=== PATIENT | female | born 1975 | race Caucasian/White ===

== ENCOUNTER → 2017-05-17 07:31 | Outpatient (CLI) | payer MEDICAID, SELFPAY ==
--- NOTE | 2017-05-17 07:34 | HPBI_ITS ---
MAMMOGRAPHY - BILATERAL SCREENING REASON FOR EXAM: Female, 42 years old. Routine annual screening examination. PERTINENT HISTORY: Non-contributory. TECHNIQUE: Digital bilateral breast desire (3D mammographic acquisition) in the CC and MLO projections. 2-D mediolateral oblique (MLO) and craniocaudad (CC) views of both breasts were obtained. CAD: Full Field Digital Mammography with Computer Added Detection was performed. COMPARISON: Comparison is made with prior examination dated July 02, 2013. FINDINGS: Breast Composition: There are scattered areas of fibroglandular density. There are no dominant masses or suspicious calcifications. No other significant abnormalities are identified. There has been no significant change since the prior study. HPBI/SCREENING MAMM (CAD), BILAT IMPRESSION: Stable bilateral screening mammogram. Yearly follow-up mammogram recommended. (A) ASSESSMENT CATEGORY: BIRADS Category 1: Negative. A letter regarding these results will be sent to the patient by the facility within 30 days. Approximately 10% of breast cancers are not detected by mammography. A normal mammogram should not delay biopsy of a clinically suspicious abnormality. [id number] Electronically Signed: Mulugeta Waddell MD at 9:53 EST Tel [phone], Service support ,
== END ==
PROVIDERS: Family Provider Family Medicine; PCP Family Medicine; Visit Provider Obstetrics & Gynecology
DX: Z12.31 Encounter for screening mammogram for malignant neoplasm of breast (principal)
CPT/HCPCS: 77063; 77067

== ENCOUNTER 2017-10-30 12:12 | Emergency (ER) | payer MEDICAID, SELFPAY ==
[2017-10-30 12:12] VITALS: BP 118/85; PULSE 79; RESP 16; TEMP 36.8; O2SAT 100; BMI 29.7
--- NOTE | 2017-10-30 12:19 | EKG12_ITS ---
Test Reason : CP Blood Pressure : / mmHG Vent. Rate : 073 BPM Atrial Rate : 073 BPM P-R Int : 156 ms QRS Dur : 092 ms QT Int : 392 ms P-R-T Axes : 084 088 076 degrees QTc Int : 431 ms Normal sinus rhythm Normal ECG Confirmed by CAITY VASQUEZ, PAMELA ([id number]), graphic editor GEORGINA ZAMARRIPA ([id number]) on 11/02/2017 1:25:19 PM Referred By: GWEN Confirmed By:PAMELA CAROLINA MD
--- NOTE | 2017-10-30 12:25 | RAD_ITS ---
STUDY: X-RAY CHEST REASON FOR EXAM: Female, 42 years old. Chest pain. TECHNIQUE: Single AP portable view of the chest. COMPARISON: Comparison is made with prior examination dated September 07, 2016. FINDINGS: The lungs are clear and expanded. There is no demonstrated pleural abnormality. Normal size heart. Normal mediastinum and morgan. Normal visualized pulmonary arteries. Normal visualized aortic arch and descending thoracic aorta. Normal visualized thoracic spine. Normal visualized ribs, clavicles, and shoulders. There is no demonstrated abnormality of the visualized soft tissue structures of the upper abdomen. RAD/Chest 1 View (Portable) IMPRESSION: Normal x-ray examination of the chest. Electronically Signed: Mulugeta Waddell MD at 12:48 EDT Tel [phone], Service support ,
--- NOTE | 2017-10-30 13:00 | ED.DCSUM_ITS ---
- ER Visit Summary Date of Service: 10/30/17 Chief Complaint: Chest pain History of Present Illness: The patient is a 42 F who presents with chest pain that has been constant for the past 3 days. Patient states the pain is over the left upper chest. Patient states her pain is worse when she is walking. Patient denies any nausea or vomiting. Patient admits to some shortness of breath and palpitations with the pain. Patient also states she did have some diaphoresis however she was walking in the hot weather today. Patient does admit to a cough and some lightheadedness. Patient states she took a Xanax tablet thinking that it was anxiety related. Patient states this did not help. Patient is a history of hypertension and is a smoker. Patient denies any PE risk factors. Physical Examination: Vital signs are stable. Patient is afebrile. Patient is in no acute distress. Oral mucosa is pink and moist. Heart was regular rate and rhythm. Lungs are clear and equal bilaterally. There is good respiratory effort noted. Abdomen is soft and nontender. Bowel sounds are normal. There is no rebound or guarding noted. Cranial nerves II through XII are intact. There are no focal motor or sensory deficits noted. The remaining physical exam is within normal limits. Test Results: EKG showed normal sinus rhythm with a rate of 73. There are no acute ST or T-wave changes noted. Single AP view of the chest was obtained. There is no acute cardiopulmonary process. This was interpreted by myself. CBC , basic metabolic profile, troponin were obtained. There is a slight leukocytosis of 11.6. The remaining labs are within normal limits. Emergency Department Course and Treatment: Patient was given aspirin here. Patient felt better on reevaluation. Patient has a RADHA score of 0. Patient has a HEART score of 1. Patient was advised that this is low risk for acute cardiac event. Patient was instructed to follow-up with her primary care physician in 5-7 days. Patient was instructed to continue her medications as previously prescribed. Patient understood and was agreeable with the plan. All questions were answered. Disposition: Discharge home Impression: Chest pain This note was generated with [employer] dictation software. It may contain incorrect words, spelling, and punctuation that were not noted in review of the chart prior to signing ED Disposition - Plan for ED Patient: Disposition: Home or Assisted Living Chief Complaint: Chest Pain Diagnosis: Chest pain Instructions: ED Chest Pain Atypical Unkn Cause Referrals: Carolina Kemp MD [Primary Care Provider] -
[2017-10-30 13:08] VITALS: O2SAT 98
[2017-10-30 13:13] LABS: Absolute Lymphocyte Count 2.87 X10^3/ul (0.83-4.51); Basophil# 0.03 X10^3/uL; Basophil% 0.3 % (0-1); Eosinophil# 0.16 X10^3/uL; Eosinophils% 1.4 % (0-5); Hematocrit 44.7 % (37-47); Hemoglobin 15.1 g/dl (12.0-15.0); Lymphocyte # 2.87 X10^3/ul (4.0); Lymphocyte % 24.8 % (19-41); Mean Corp Hgb Conc 33.8 g/gl (32-36); Mean Corpuscular Hgb 30.8 pg (27.0-32.0); Mean Corpuscular Volume 91.2 fL (81-99); Mean Platelet Vol. 10.7 fl (6.2-12.0); Monocyte# 0.48 X10^3/uL; Monocyte% 4.2 % (0-10); Neutrophil # 7.98 X10^3/uL (2.7-7.7); POSITIVE COUNT NO; POSITIVE DIFFERENTIAL NO; POSITIVE MORPHOLOGY NO; Platelet Count 271 K/mm3 (150-450); RBC Distribution Width CV 13.6 % (11.6-14.6); RBC Distribution Width SD 44.6 fl (35.1-43.9); White Blood Count 11.6 K/mm3 (4.4-11.0)
[2017-10-30] MEDS: Aspirin 81 MG TAB.CHEW 324 MG PO (13:18)
[2017-10-30 13:30] LABS: Anion Gap 6 (5-15); BUN 16 mg/dL (7-18); BUN/Creat Ratio 17.2 RATIO (10-20); Calcium,Total 9.3 mg/dL (8.5-10.1); Chloride 106 mmol/L (98-107); Creatinine, Serum 0.93 mg/dL (0.55-1.02); EST Glomerular Filtration Rate 70 mL/min (>60); Est Glom Filt Rate - Afr Amer 84 mL/min (>60); Estimated Creatinine Clearance 72.27 ml/min; Glucose 89 mg/dL (74-106); Potassium 3.7 mmol/L (3.5-5.1); Sodium Level 141 mmol/L (136-145)
[2017-10-30 15:24] VITALS: BP 138/76; PULSE 66; RESP 18; O2SAT 98
== END 2017-10-30 15:26 | disposition home or self-care (01) ==
PROVIDERS: Emergency Provider Emergency Medicine; Family Provider Internal Medicine; PCP Internal Medicine
DX: R07.9 Chest pain, unspecified (principal); I10 Essential (primary) hypertension; E03.9 Hypothyroidism, unspecified; F17.200 Nicotine dependence, unspecified, uncomplicated; Z79.899 Other long term (current) drug therapy
CPT/HCPCS: 71045; 80048; 84484; 85025; 93005; 99284; A4216

== ENCOUNTER → 2018-03-26 16:00 | Outpatient (CLI) | payer MEDICAID, SELFPAY ==
[2018-03-26 15:20] VITALS: BMI 29.1
[2018-03-26 19:04] LABS: T4 Free Direct 1.22 ng/dL (0.76-1.46); Thyroid Stim Hormone (TSH) 1.57 uIU/mL (0.358-3.74); Vitamin D,25 Hydroxy 26.6 ng/mL (29.95-100.01)
--- OUTSIDE RECORDS SUMMARY | 2018-05-12 23:20 | XMS RPT_ITS ---
:1975 Author Organization [place] Care Team Providers Name Role Phone ALL MATIAS Attending Unavailable ALL MATIAS Referring Unavailable ALL MTAIAS Referring Unavailable ALL MATIAS Attending Unavailable BARI DE LA GARZA Referring Unavailable Bari Westfall FIRE PREVENTION FORESTER-C Attending Unavailable Oleghe, Efewongbe Referring Unavailable WestfallBari rivas FIRE PREVENTION FORESTER-C Attending Unavailable WestfallBari FIRE PREVENTION FORESTER-C Referring Unavailable Oleghe, Efewong[place] Primary Care Unavailable Marino Cox Attending Unavailable Marino Cox Referring Unavailable Holli, Bari Primary Care Unavailable Bari De La Garza Attending Unavailable Bari De La Garza Primary Care Unavailable Schwnela Lawson Attending Unavailable Oleghe, Efewongbe Primary Care Unavailable Marino Cox Attending Unavailable Marino Cox Referring Unavailable Oleghe, Efewong[place] Primary Care Unavailable Oleghe, E[place] Attending Unavailable Holli, Bari Referring Unavailable Oleghe, Efewong[place] Primary Care Unavailable CiaraGeo rossril Attending Unavailable Oleghe, Efewongbe Referring Unavailable PROBLEMS PROBLEMS DATE TYPE CONDITION / CODE ATTENDING STATUS SOURCE 04/11/2018 Unknown Z12.4 - Encounter Ericmadisyn Marino Active [place] for screening for Community malignant neoplasm [facility] / Repository Z12.4(ICD-10) 05/25/2017 Unknown E11.9 - Type 2 Bari De La Garza Active [place] diabetes mellitus Community without Hospital complications / Repository E11.9(ICD-10) 05/25/2017 Unknown E03.9 - Bari De La Garza Active [place] Hypothyroidism, Community unspecified / Hospital E03.9(ICD-10) Repository 10/31/2017 Unknown I49.9 - Cardiac Oleghe, Active [place] arrhythmia, [place] Community unspecified / Hospital I49.9(ICD-10) Repository 01/16/2018 Unknown R07.9 - Chest pain, Schwiger, Lawson Active [place] unspecified / Community R07.9(ICD-10) Hospital Repository 10/19/2017 Active Generalized NA Active [facility] abdominal pain / [facility] [place] R10.84(ICD-10) Repository 10/19/2017 Active Incisional hernia NA Active [facility] without obstruction [facility] [place] or gangrene / Repository K43.2(ICD-10) 10/19/2017 Active Unknown / NA Active [facility] UNK(Unknown) [facility] [place] Repository 05/17/2017 Unknown Z12.31 - Encounter Kenny Marino [place] for screening Community mammogram for Hospital malignant neoplasm Repository of breast / Z12.31(ICD-10) PROCEDURES PROCEDURES No Procedure Records FoundRESULTS RESULTS PAP IG HPV HR Collected: 04/11/2018 Status: F Source: [place] 4:00 PM [facility] REPOSITORY Order Comment: CYTOLOGY INFORMATION: - CLINICAL INFORMATION: - DATE LMP/MENOPAUSE: 03/18/18 LMP - COLLECTION VIAL: Thin Prep Vial - TRAY LINE SUPERVISOR SOURCE: CERVICAL/ENDOCERVICAL - COLLECTION TECHNIQUE: BRUSH/SPATULA Specimen Comment: [id number] Specimen Comment: Source.............Cervix;Endocervix Specimen Comment: LMP / Prev Treat...[id number]=[id number] Specimen Comment: No. of containers..01 ThinPrep Vial TYPE CODE TESTS RESULT OUT OF RANGE REFERENCE UNITS LAB L7400.0800 . Normal DIAGN Comment Result Comment: NEGATIVE FOR INTRAEPITHELIAL LESION AND MALIGNANCY. LAB L7400.0900 . Normal ADEQ Comment Result Comment: Satisfactory for evaluation. Endocervical and/or squamous metaplastic cells (endocervical component) are present. LAB L7400.1400 . Normal PERFORM Comment Result Comment: Eleanor Casper, Skein Yarn Drier (ASCP) LAB L7400.2575 . Normal TEST METHOD Comment Result Comment: This liquid based ThinPrep(R) pap test was screened with the use of an image guided system. LAB L7400.2600 . Normal . COMM LAB L7400.2700 . Normal PAPSMR Comment Result Comment: The Pap smear is a screening test designed to aid in the detection of premalignant and malignant conditions of the uterine cervix. It is not a diagnostic procedure and should not be used as the sole means of detecting cervical cancer. Both false-positive and false-negative reports do occur. LAB L7400.2760 Negative Normal HPV APTIMA, Negative HR Result Comment: This test detects fourteen high-risk HPV types (16/18/31/33/35/39/45/ 51/52/56/58/59/66/68) without differentiation. Performed at: [address] [id number] Astronautical Engineer: Justine Camilo MD, Phone: [phone] Performed at: =[address] [id number] Astronautical Engineer: Justine Camilo MD, Phone: [phone] Performed By: #### L7400.0377 #### [facility] (refer to report for specific site) refer to report for address and phone number THYROID STIM HORMONE Collected: 03/26/2018 Status: F Source: [place] (TSH) 4:04 PM [facility] REPOSITORY TYPE CODE TESTS RESULT OUT OF RANGE REFERENCE UNITS LAB L501.9520 0.358-3.74 uIU/mL Normal TSH 1.57 Performed By: #### L501.9520, L506.0400 #### [facility] [address] [place], [address] T4 FREE DIRECT Collected: 03/26/2018 Status: F Source: [place] 4:04 PM [facility] REPOSITORY TYPE CODE TESTS RESULT OUT OF RANGE REFERENCE UNITS LAB L506.0400 0.76-1.46 ng/dL Normal T4 FREE 1.22 DIRECT Performed By: #### L501.9520, L506.0400 #### [facility] [address] [place], [address] VITAMIN D,25 HYDROXY Collected: 03/26/2018 Status: F Source: [place] 4:04 PM [facility] REPOSITORY TYPE CODE TESTS RESULT OUT OF REFERENCE UNITS RANGE LAB L506.1000 29.95-100.01 ng/mL Low Vitamin D 26.6 25-OH Result Comment: Vitamin D 25(OH) Status Range Deficiency <20 ng/mL (50nmol/L) Insuffciency 20 - 30 ng/mL (50 - 75 nmol/L) Sufficiency 30 - 100 ng/mL (75 - 250 nmol/L) Toxicity >100 ng/mL (>250 nmol/L) Performed By: #### L506.1000 #### [facility] [address] [place], [address] INTERNAL MEDICINE Observed: 03/26/2018 Status: F Source: [place] OFFICE VISIT 4:01 PM [facility] REPOSITORY [facility] [address] [place] [address] [place] [address] OFFICE VISIT Date of Service: 03/26/18 MR#: [id number] Acct: [id number] Name: AMA ROBERTS Rep #: [id number] : 1975 Provider: Bari Westfall NP Age/Sex: 42/F Location[place] [facility] Status: Signed Intake Vital Signs03/26/18 Body Mass Index (BMI) 29.1 03/26/18 Height 5 ft 7 in 03/26/18 Weight: 191 lb 03/26/18 Body Mass Index (BMI) 29.9 03/26/18 Blood Pressure 124/80 H Intake Visit Reasons: WANTS AN ORDER FOR BW TO CHECK THYROID Chief Complaint: Wants an order for BW Is patient in pain?: No Allergies ondansetron [From Zofran (as hydrochloride)] Allergy (Verified 03/26/18 15:19) Nausea Medications ALPRAZolam [Xanax] 1 mg PO BID PRN 12/21/13 [History Confirmed 03/26/18] diphenhydramine 25 mg capsule 25 mg PO QHS PRN 10/31/17 [History Confirmed 03/26/18] ibuprofen 200 mg tablet 200 mg PO TID-QID PRN 10/31/17 [History Confirmed 03/26/18] multivitamin capsule 1 cap PO QAM 10/31/17 [History Confirmed 03/26/18] levothyroxine 88 mcg tablet 88 mcg PO DAILY #90 tab 03/20/18 [Rx Confirmed 03/26/18] atenolol 25 mg tablet 25 mg PO QDAY #90 tab 03/26/18 [Rx Confirmed 03/26/18] dextromethorphan-guaifenesin ER 60 mg-1,200 mg tab,extend release,12hr 1 tab PO Q12H PRN #14 tab 03/26/18 [Rx Confirmed 03/26/18] PFSH Medical History Cardiac arrhythmia, unspecified (Acute) Polycystic ovarian disease (Acute) Anxiety (Chronic) Hypothyroidism (Acute) Vitamin deficiency (Acute) History of migraine (Acute) Arthritis (Chronic) Seasonal allergies (Chronic) Hyperlipemia (Acute) 2 vaginal deliveries (Acute) GERD (gastroesophageal reflux disease) (Acute) Surgical History History of 2 sections (Acute) History of tubal ligation (Acute) Family History Grandfather Cancer Alcohol abuse Father Anxiety Arthritis Myocardial infarction Hypertension Mother Heart disease Hypertension Son Asthma Diabetes Social History Smoking Status: Current every day smoker alcohol intake: never substance use type: does not use what type of physical activity do you participate in: walking frequency: daily HPI HPI Chief Complaint: Wants an order for BW Details: AMA ROBERTS, is a 42 F who presents to the office today for an acute visit needing blood work ordered for her thyroid and vitamin D and also an acute complaint of productive cough of yellow sputum times 1 week. She has a past medical history as listed above. The patient is requesting her thyroid labs to be checked, she is consistent with her levothyroxine replacement therapy, however she states over the last 2 months she has been tired. She also discontinued her vitamin D supplementation for her prior history of vitamin D deficiency and is requesting lab work to be done as well. She does bring up an acute concern of a productive cough of yellow sputum times 1 week that is persisting, however is not worsening. She has tried no dbam-ozw-dwdgcif treatments. She denies any other aggravating or relieving symptoms. She does state the cough is worse in the morning. The patient otherwise denies any fever, chills, nausea, vomiting, shortness of breath, chest pain or pressure, palpitations, orthopnea, lower extremity edema, syncope or presyncopal episodes. ROS Const Constitutional: No chills, fatigue, fever(s), frequent falls, malaise, weakness, sleep problems or change in appetite Eyes Eyes: No blurry vision, change in vision, double vision, discharge or visual disturbances ENT ENT: No abnormal hearing, ear pain, ear pressure, tinnitus or dizziness/vertigo Resp Respiratory: Positive for cough Cough: Yes productive, wheezing and change in phlegm color (Green); no shortness of breath Cardio Cardiology: No chest pain at rest, chest pain with exertion, shortness of breath, dyspnea on exertion, generalized swelling, irregular heart rhythm, lightheadedness, orthopnea, fast heart rate or palpitations Gastro GI: No abdominal pain, change in bowel habits, constipation, diarrhea, nausea/dyspepsia or vomiting Genitourinary-Female: No difficulty urinating, burning urination, painful urination, urinary incontinence, urinary frequency, urinary urgency, urinary hesitancy, urinary retention, Frequent nighttime urination/ nocturia, sexual problems, genital lesions, abnormal vaginal bleeding, pelvic pain, vaginal dryness, vaginal odor or Vaginal Itching Musc Musculoskeletal: No joint pain, back pain, joint swelling, limited range of motion, numbness or tingling Skin Skin: Positive for hair loss; no change in skin color, itching, rash or wounds Breast Breast: No breast lump or breast pain Neuro Neurology: No frequent falls, weakness, visual disturbances, abnormal hearing, numbness, tingling, unsteady gait/balance, dizziness, loss of vision or memory loss Psych Psychiatric: No change in appetite, No memory loss, No anxiety, No depression, No Thoughts of harming yourself/Others Endo Endocrine: No fatigue, heat intolerance, increased thirst/drinking, increased hunger or increased urination Aller/Imm Allergy/Immunologic: Positive for wheezing; no itchy eyes or seasonal allergy symptoms Oleksandr/Lymp Hematologic/Lymphatic: No easy bleeding, easy bruising or enlarged lymph nodes Exam Const General: cooperative, no acute distress, well developed Orientation: alert, awake, oriented x3 [facility] Head: normal to inspection, normocephalic Ears: hearing grossly normal bilaterally Resp Effort AND Inspection: normal respiratory effort, able to speak in complete sentences, cough Quality of cough: dry Auscultation: Bilateral: Clear to Auscultation Cardio Rate: regular rate Rhythm: regular rhythm Heart Sounds: S1 normal, S2 normal GI Palpation: soft, no hepatosplenomegaly Neuro General: alert, awake, oriented x3, moves all extremities, CN's II-XI intact bilaterally Extrem General: no clubbing, cyanosis or edema Psych Appearance: grossly normal Mood: congruent mood Affect: normal affect Assessment AND Plan 1. Hypothyroidism E03.9 Plan We will recheck TSH and free T4. Continue with the current supplementation. She is complaining of intermittent fatigue times 2 months, will make adjustments as necessary. Denies any other signs of hyper or hypo-thyroidism Orders Orders: 2. Vitamin deficiency E56.9 Plan Has a history of vitamin D deficiency, has not been on her supplementation for the past 6 months, will recheck a vitamin D level. Orders Orders: 3. Cough R05 Plan Has been going on for about a week now, patient is a smoker, denies any other signs and symptoms and has not tried any treatments. Mucinex DM called to pharmacy take with full glass of water, educated on red flag symptoms requiring urgent medical attention. Patient to follow-up as previously scheduled or sooner if needed. Plan Detail Other Medications New: Follow Up As previously scheduled or sooner if needed Coding Level of Care Code Off vis,est,level 3 Diagnoses Hypothyroidism E03.9 Vitamin deficiency E56.9 Cough R05 03/26/18 1601 <Electronically signed by Bari ALBERTO> Date Bari ALBERTO Cosigner Signature: Date (if applicable) CC: INTERNAL MEDICINE Observed: 11/02/2017 Status: F Source: [place] OFFICE VISIT 2:45 PM [facility] [address] [place] [address] [address] [place] [address] OFFICE VISIT Date of Service: 10/31/17 MR#: [id number] Acct: [id number] Name: AMA ROBERTS Rep #: [id number] : 1975 Provider: Carolina Kemp MD Age/Sex: 42/F Location: [facility] Status: Signed Intake Vital Signs10/31/17 Height 5 ft 7 in Intake Visit Reasons: EST CARE Chief Complaint: establish care Is patient in pain?: No Allergies ondansetron [From Zofran (as hydrochloride)] Allergy (Verified 10/30/17 12:15) Nausea Medications ALPRAZolam [Xanax] 1 mg PO BID PRN 12/21/13 [History Confirmed 10/31/17] Levothyroxine [Synthroid] 88 mcg PO DAILY 12/21/13 [History Confirmed 10/31/17] Cholecalciferol (Vitamin D3) [Vitamin D3] 5,000 unit PO BID 11/12/16 [History Confirmed 10/31/17] atenolol 25 mg tablet 25 mg PO QDAY tab 10/31/17 [History Confirmed 10/31/17] diphenhydramine 25 mg capsule 25 mg PO QHS PRN 10/31/17 [History Confirmed 10/31/17] ibuprofen 200 mg tablet 200 mg PO TID-QID PRN 10/31/17 [History Confirmed 10/31/17] multivitamin capsule 1 cap PO QAM 10/31/17 [History Confirmed 10/31/17] Is last menstrual period known: Yes PFSH Medical History Polycystic ovarian disease (Acute) Anxiety (Chronic) Hypothyroidism (Acute) Vitamin deficiency (Acute) History of migraine (Acute) Arthritis (Chronic) Seasonal allergies (Chronic) Hyperlipemia (Acute) 2 vaginal deliveries (Acute) GERD (gastroesophageal reflux disease) (Acute) Surgical History History of 2 sections (Acute) History of tubal ligation (Acute) Family History Grandfather Cancer Alcohol abuse Father Anxiety Arthritis Myocardial infarction Hypertension Mother Heart disease Hypertension Son Asthma Diabetes Social History Smoking Status: Current every day smoker alcohol intake: never substance use type: does not use what type of physical activity do you participate in: walking frequency: daily HPI HPI Chief Complaint: establish care Details: AMA ROBERTS, is a 42yo F who presents to the office today to establish care. She had been seen previously by Dr. De La Garza. She however states that most recently she had been in [place] follow-up 6 months and only moved back here about 6 weeks ago. She was seen in the emergency room yesterday due to complaints of chest pain. Investigations done at that time were without any significant abnormality. She was discharged home in stable condition. She however reports chronic episodes of what she reports as a regular heartbeat. She has had what she also reports is near syncopal episodes during these periods. These episodes occasionally resolve on their own or with Ativan. She denies any prior cardiac workup. History of anxiety and has been on several antianxiety medications. Most recently was on Zoloft however she states that she discontinued it when she thought she did not need it. She otherwise feels well denies chest pain or palpitations at this time. She also denies shortness of breath. ROS Const Constitutional: No weight change, body ache, chills, fatigue, sleep problems, fever(s), change in appetite, snoring, weakness, frequent falls, headache(s) or excessive sweating Eyes Eyes: No change in vision, eye pain, light sensitivity or blurry vision ENT ENT: No headache(s), abnormal hearing, ear pain, nasal congestion, sore throat or neck pain Resp Respiratory: Positive for wheezing; no snoring or shortness of breath Cardio Cardiology: Positive for palpitations; no excessive sweating, chest pain with exertion, shortness of breath, dyspnea on exertion, orthopnea or lightheadedness Gastro GI: No abdominal pain, change in bowel habits, constipation, diarrhea, vomiting, nausea/dyspepsia or cramping Genitourinary-Female: No burning urination, painful urination, urinary incontinence, urinary frequency, abnormal vaginal bleeding, pelvic pain or other Musc Musculoskeletal: No neck pain, abnormal walking, joint pain, back pain, limited range of motion, numbness or tingling Skin Skin: No redness, dry skin, itching, lesions, wounds or rash Neuro Neurology: No weakness, frequent falls, headache(s), abnormal hearing, abnormal walking, numbness, tingling, abnormal speech, dizziness or memory loss Psych Psychiatric: No change in appetite, No memory loss, Positive for anxiety, No depression, No Thoughts of harming yourself/Others Endo Endocrine: No fatigue, excessive sweating, cold intolerance, increased thirst/drinking, heat intolerance, flushing or increased hunger Aller/Imm Allergy/Immunologic: Positive for wheezing; no itchy eyes, hives or seasonal allergy symptoms Oleksandr/Lymp Hematologic/Lymphatic: No easy bleeding, easy bruising or enlarged lymph nodes Exam Const General: cooperative, no acute distress, well developed Orientation: alert, awake, oriented x3 HENMT Head: normal to inspection, normocephalic Ears: hearing grossly normal bilaterally Resp Effort AND Inspection: normal respiratory effort, able to speak in complete sentences Auscultation: Bilateral: Clear to Auscultation Cardio Rate: regular rate Rhythm: regular rhythm Heart Sounds: S1 normal, S2 normal GI Palpation: soft, no hepatosplenomegaly Neuro General: alert, awake, oriented x3, moves all extremities, CN's II-XI intact bilaterally Extrem General: no clubbing, cyanosis or edema Psych Appearance: grossly normal Mood: congruent mood Affect: normal affect Assessment AND Plan 1. Irregular heart beat I49.9 Plan Ms. Roberts reports a chronic history of irregular heart beat . She also reports some near syncopal episodes and denies any cardiac work up in the past. Review of her chart showed no significant tachycardia with the highest HR of 99. EKG done in February also normal. She however would like a cardiology referral and work up. Records requested from prior pcp(s). Orders Referrals: 2. Hypertension I10 Plan Optimally controlled. Continue current medication and lifestyle modifications. 3. Anxiety F41.9 Plan She states that she had been on several medications in the past however she discontinued her last medication which was Zoloft and is currently only on Xanax. I have discussed with patient that she will benefit from proper treatment of anxiety if indicated. Will request records as above. Plan Detail Follow Up 2 Months Coding Level of Care Code Off vis,new,level 3 Diagnoses Irregular heart beat I49.9 Hypertension I10 Anxiety F41.9 11/02/17 1445 <Electronically signed by Carolina Kemp MD> Date Carolina Kemp MD Cosigner Signature: Date (if applicable) CC: 12 LEAD ELECTROCARDIOGRAM Observed: 11/02/2017 Status: F Source: [place] 1:25 PM [facility] REPOSITORY [facility] Cardiovascular Services [address] [place] [id number] 12 Lead EKG 10/30/17 1218 MR#: [id number] Acct: [id number] Name: AMA ROBERTS Rep #: [id number] : 1975 42 From: Ronal Urbina MD Attending Dr: Status: DEP ER Ordering Dr: Lawson Sidhu DO Date: 10/30/17 Location: ED Sex: F C Admitted: Test Reason : CP Blood Pressure : / mmHG Vent. Rate : 073 BPM Atrial Rate : 073 BPM P-R Int : 156 ms QRS Dur : 092 ms QT Int : 392 ms P-R-T Axes : 084 088 076 degrees QTc Int : 431 ms Normal sinus rhythm Normal ECG Confirmed by RONAL URBINA MD ([id number]), editorial writer GEORGINA ZAMARRIPA ([id number]) on 11/02/2017 1:25:19 PM Referred By: GWEN Confirmed By:RONAL URBINA MD 11/02/17 1325 Date Ronal Urbina MD CC: Carolina Kemp MD; Lawson Sidhu DO Signed EMERGENCY DEPARTMENT Observed: 10/30/2017 Status: F Source: [place] SUMMARY 3:02 PM [facility] REPOSITORY [facility] Medical Records Department [address] [place] [address] Emergency Department Summary 10/30/17 1257 MR#: [id number] Acct: [id number] Name: AMA ROBERTS Rep #: [id number] : 1975 42 From: Lawson Sidhu DO PCP: Carolina Kemp MD Status: REG ER - ER Visit Summary Date of Service: 10/30/17 Chief Complaint: Chest pain History of Present Illness: The patient is a 42 F who presents with chest pain that has been constant for the past 3 days. Patient states the pain is over the left upper chest. Patient states her pain is worse when she is walking. Patient denies any nausea or vomiting. Patient admits to some shortness of breath and palpitations with the pain. Patient also states she did have some diaphoresis however she was walking in the hot weather today. Patient does admit to a cough and some lightheadedness. Patient states she took a Xanax tablet thinking that it was anxiety related. Patient states this did not help. Patient is a history of hypertension and is a smoker. Patient denies any PE risk factors. Physical Examination: Vital signs are stable. Patient is afebrile. Patient is in no acute distress. Oral mucosa is pink and moist. Heart was regular rate and rhythm. Lungs are clear and equal bilaterally. There is good respiratory effort noted. Abdomen is soft and nontender. Bowel sounds are normal. There is no rebound or guarding noted. Cranial nerves II through XII are intact. There are no focal motor or sensory deficits noted. The remaining physical exam is within normal limits. Test Results: EKG showed normal sinus rhythm with a rate of 73. There are no acute ST or T-wave changes noted. Single AP view of the chest was obtained. There is no acute cardiopulmonary process. This was interpreted by myself. CBC, basic metabolic profile, troponin were obtained. There is a slight leukocytosis of 11.6. The remaining labs are within normal limits. Emergency Department Course and Treatment: Patient was given aspirin here. Patient felt better on reevaluation. Patient has a RADHA score of 0. Patient has a HEART score of 1. Patient was advised that this is low risk for acute cardiac event. Patient was instructed to follow-up with her primary care physician in 5-7 days. Patient was instructed to continue her medications as previously prescribed. Patient understood and was agreeable with the plan. All questions were answered. Disposition: Discharge home Impression: Chest pain This note was generated with [employer] dictation software. It may contain incorrect words, spelling, and punctuation that were not noted in review of the chart prior to signing ED Disposition - Plan for ED Patient: Disposition: Home or Assisted Living Chief Complaint: Chest Pain Diagnosis: Chest pain Instructions: ED Chest Pain Atypical Unkn Cause Referrals: Carolina Kemp MD [Primary Care Provider] - What to do if you have Problems For any increased pain, shortness of breath, bleeding, nausea or vomiting, chest pain, or any unexpected problems, contact your Primary Care Provider. Call [facility] ([phone]) or report to the closest Emergency Room. Call 911 if necessary. 10/30/17 1502 <Electronically signed by Lawson Sidhu DO> Date Lawson Sidhu DO Cosigner Signature (If Indicated): Date CC: Carolina Kemp MD CBC W/DIFF, AUTOMATED Collected: 10/30/2017 Status: F Source: [place] 1:00 PM [facility] REPOSITORY TYPE CODE TESTS RESULT OUT OF RANGE REFERENCE UNITS LAB L100.1000 4.4-11.0 K/mm3 High WBC 11.6 LAB L100.1200 4.2-5.4 M/mm3 Normal RBC 4.90 LAB L100.1300 12.0-15.0 g/dl High HGB 15.1 LAB L100.1400 37-47 % Normal HCT 44.7 LAB L100.1500 81-99 fL Normal MCV 91.2 LAB L100.1600 27.0-32.0 pg Normal MCH 30.8 LAB L100.1700 32-36 g/gl Normal MCHC 33.8 LAB L100.1810 11.6-14.6 % Normal RDW CV 13.6 LAB L100.1820 35.1-43.9 fl High RDW SD 44.6 LAB L100.1900 150-450 K/mm3 Normal PLT 271 LAB L100.2000 6.2-12.0 fl Normal MPV 10.7 LAB L100.2100 47-70 % Normal NEUT% 69.0 LAB L100.2200 19-41 % Normal LY% 24.8 LAB L100.2300 0-10 % Normal MONO% 4.2 LAB L100.2400 0-5 % Normal EO% 1.4 LAB L100.2500 0-1 % Normal BASO% 0.3 LAB L100.2550 0.0-0.9 % Normal IM GRAN % 0.300 Result Comment: IG% - Immature Granulocytes (promyelocytes, myelocytes and metamyelocytes) > 1% indicates that a LEFT SHIFT is Present. LAB L100.2620 2.0-7.7 X10 3/uL High Absolute Neut 8.0 LAB L100.2720 0.83-4.51 X10 3/ul Normal Absolute Lymph 2.87 Performed By: #### L100.0100, L500.2500, L501.4010 #### [facility] [address] [place], [place], [id number] BASIC METABOLIC Collected: 10/30/2017 Status: F Source: BE[place] PROFILE (BMP) 1:00 PM [facility] REPOSITORY TYPE CODE TESTS RESULT OUT OF RANGE REFERENCE UNITS LAB L501.0100 74-106 mg/dL Normal GLU 89 Result Comment: Please note revised GLUCOSE reference range effective 2017. LAB L501.1000 7-18 mg/dL Normal BUN 16 LAB L501.1100 0.55-1.02 mg/dL Normal CREAT,SERUM 0.93 Result Comment: The validity of the calculated GFR AND GFRAA in patients over 70 years has not been determined. Clinical correlation is essential. LAB L501.1110 >60 mL/min Normal EST GFR 70 Result Comment: Non- GFR Calc LAB L501.1115 >60 mL/min Normal EST GFR - AA 84 Result Comment: GFR Calc LAB L501.1255 ml/min Normal Estimated CRCL 72.27 LAB L501.1300 10-20 RATIO Normal BUN/CRE 17.2 LAB L501.2200 8.5-10 mg/dL Normal .1 CA 9.3 LAB L501.5300 136-14 mmol/L Normal 5 NA 141 LAB L501.5600 3.5-5. mmol/L Normal 1 K 3.7 LAB L501.5900 98-107 mmol/L Normal CL 106 LAB L501.6100 21.0-3 mmol/L Normal 2.0 CO2 29.0 LAB L501.6200 5-15 Normal GAP 6 Performed By: #### L100.0100, L500.2500, L501.4010 #### [facility] [address] [place], [address] TROPONIN-I Collected: 10/30/2017 Status: F Source: [place] 1:00 PM [facility] REPOSITORY TYPE CODE TESTS RESULT OUT OF RANGE REFERENCE UNITS LAB L501.4010 <0.045 ng/mL Normal < 0.015 TROPONIN-I Result Comment: TROPONIN-I EXPECTED VALUES <0.045 Negative 0.045 - 0.590 Consistent with Cardiac Damage > OR = 0.600 Critical Value Not every elevated troponin is indicative of MT. These values should be used with clinical judgement in examining the patient's clinical picture for diagnosis. To establish a diagnosis of MT versus myocardial injury, there must be a demonstrated rise and/or fall in the troponin values, in addition to ischemic symptoms, EKG changes, new regional wall motion abnormality, and/or angiographical evidence. PLEASE NOTE: REFERENCE RANGES EDITED 17 Performed By: #### L100.0100, L500.2500, L501.4010 #### [facility] [address] [place], [address] CHEST 1 VIEW Observed: 10/30/2017 Status: F Source: [place] (PORTABLE) 12:19 PM [facility] REPOSITORY [facility] Imaging Services [address] [place] [address] Chest 1 View (Portable) MR#: [id number] Acct: [id number] Name: AMA ROBERTS Rep #: [id number] : 1975 F 42 From: Mulugeta Waddell MD PCP: Carolina Kemp MD Status: DEP ER Study: Chest 1 View (Portable) Date of Exam: 10/30/17 Exam# [id number] Ordering Dr: Lawson Sidhu DO STUDY: X-RAY CHEST REASON FOR EXAM: Female, 42 years old. Chest pain. TECHNIQUE: Single AP portable view of the chest. COMPARISON: Comparison is made with prior examination dated September 07, 2016. FINDINGS: The lungs are clear and expanded. There is no demonstrated pleural abnormality. Normal size heart. Normal mediastinum and morgan. Normal visualized pulmonary arteries. Normal visualized aortic arch and descending thoracic aorta. Normal visualized thoracic spine. Normal visualized ribs, clavicles, and shoulders. There is no demonstrated abnormality of the visualized soft tissue structures of the upper abdomen. RAD/Chest 1 View (Portable) IMPRESSION: Normal x-ray examination of the chest. Electronically Signed: Mulugeta Waddell MD at 12:48 EDT Tel [phone], Service support , CC: Carolina Kemp MD; Lawson Sidhu DO Tissue Technologist: Signed PROGRESS Observed: 10/25/2017 Status: COMPLETED Source: [place] 8:27 PM [facility] REPOSITORY HNO ID: [id number] Author: All Matias Service: (none) Author Type: Physician Type: Progress Notes Filed: 10/25/2017 8:30 PM Note Text: FOLLOW UP VISIT NAME: Ama Porter [facility] NO[facility] [id number] DATE OF SERVICE: 10/25/2017 : 1975 REFERRING PHYSICIAN: No primary care provider on file. Ama is a patient I am following for right upper quadrant pain and the concern of the hernia and hiatal hernia. Ama is a 42 year old female with a complaint of a bulge and discomfort in her upper abdomen. An additional bulges and discomfort in her lower abdominal area. The patient notes discomfort in this area with lifting, moving and working out and exercising. The symptoms have increased, over the past few months. The patient notes no symptoms of bowel obstruction and denies nausea or vomiting. The patient has also made a concerted effort to lose weight. She has lost approximately 50 pounds in the last 4 months by eating healthy and working out more. She would like to lose an additional 20 or so pounds She had multiple sections in the past. She developed a right lower quadrant abdominal wall abscess that apparently had a large cavity and then required a wound VAC for treatment and closure. She now has a significant asymmetry along with laxity of her lower abdominal wall from the weight loss. In addition to cosmetic concerns, she has discomfort in the area. I obtained a CT scan of the abdomen and pelvis. This demonstrated: IMPRESSION: No acute abnormality Tissue Technologist: LORI ? Transcribe Date/Time: Oct ?4:08P Dictated by : NIKKI MARIEE MD This examination was interpreted and the report reviewed and electronically signed by: NIKKI MARIEE MD on Oct ?4:11PM ?EST Results-Findings * * *Final Report* * * DATE OF EXAM: Oct ?3:54PM ? [facility] ? 0531 ?- ?CT ABD/PEL WO IVCON ?/ PROCEDURE REASON: multiple diagnoses ?? ? * * * * Physician Interpretation * * * * ?EXAMINATION: ?CT ABDOMEN AND PELVIS WITHOUT IV CONTRAST CLINICAL HISTORY: ?Generalized abdominal pain. ?Incisional hernia. TECHNIQUE: Non-IV contrast imaging of the abdomen and pelvis was performed using standard technique, scanning from just above the dome of the diaphragm to the symphysis pubis. ?Unenhanced imaging is limited for the evaluation of some intra-abdominal and pelvic pathology. MQ: ?CTAPWO_3 Contrast: IV: None Oral: ?50 ml of 50ML Omnipaque [address] Radiation dose: Integrated Dose-length product (DLP) for this visit = ? 738 mGy*cm. CT Dose Reduction Employed: Automated exposure control (AEC) COMPARISON: None. RESULT: Abdomen / Pelvis: Liver: Unremarkable. Biliary: Gallbladder is unremarkable. ?No ductal dilatation. Spleen: No splenomegaly. Pancreas: Unremarkable. Adrenals: No mass. Kidneys: No calculus, hydronephrosis or finding to suggest a cyst or mass in the unenhanced kidney. GI Tract: No bowel dilation. ?Appendix is unremarkable Lymph Nodes: No lymphadenopathy. Mesentery/peritoneum: No ascites. Retroperitoneum: No mass. Vasculature: No aneurysm Pelvis: No mass or ascites. Bones/Soft Tissues: No acute abnormality. Lower thorax: Unremarkable. VITALS: There were no vitals taken for this visit. On examination, her abdominal exam is benign with no palpable hernias Assessment IMPRESSION: Right upper quadrant pain, no hernias or abnormalities noted PLAN: If the patient notes any problems or signs of bulges or worsening difficulties, the patient should contact me immediately. We reviewed the CT scan together. The patient is reassured that there are no obvious acute abnormalities. Diagnoses: (R10.84) Generalized abdominal pain (primary encounter diagnosis) (K43.2) Incisional hernia, without obstruction or gangrene Return to Clinic: The patient is instructed to follow- up with me as needed. All Matias MD CNOV Observed: 10/25/2017 Status: COMPLETED Source: [place] 8:30 AM [facility] REPOSITORY Office Visit (GENSWS) AMA ROBERTS ([id number]) 1975 F Date Time Provider Department 10/25/17 8:30 AM ALL MATISA During your visit today, we recorded the following information about you: All Matias MD 10/25/2017 8:30 PM Signed FOLLOW UP VISIT NAME: Ama Porter [facility] CL[facility]IC NO.: [id number] DATE OF SERVICE: 10/25/2017 : 1975 REFERRING PHYSICIAN: No primary care provider on file. Ama is a patient I am following for right upper quadrant pain and the concern of the hernia and hiatal hernia. Ama is a 42 year old female with a complaint of a bulge and discomfort in her upper abdomen. An additional bulges and discomfort in her lower abdominal area. The patient notes discomfort in this area with lifting, moving and working out and exercising. The symptoms have increased, over the past few months. The patient notes no symptoms of bowel obstruction and denies nausea or vomiting. The patient has also made a concerted effort to lose weight. She has lost approximately 50 pounds in the last 4 months by eating healthy and working out more. She would like to lose an additional 20 or so pounds She had multiple sections in the past. She developed a right lower quadrant abdominal wall abscess that apparently had a large cavity and then required a wound VAC for treatment and closure. She now has a significant asymmetry along with laxity of her lower abdominal wall from the weight loss. In addition to cosmetic concerns, she has discomfort in the area. I obtained a CT scan of the abdomen and pelvis. This demonstrated: IMPRESSION: No acute abnormality Tissue Technologist: PSCB ? Transcribe Date/Time: Oct ?4:08P Dictated by : NIKKI MARIEE MD This examination was interpreted and the report reviewed and electronically signed by: NIKKI MARIEE MD on Oct ?4:11PM ?EST Results-Findings * * *Final Report* * * DATE OF EXAM: Oct ?3:54PM ? [facility] ? 0531 ?- ?CT ABD/PEL WO IVCON ?/ PROCEDURE REASON: multiple diagnoses ?? ? * * * * Physician Interpretation * * * * ?EXAMINATION: ?CT ABDOMEN AND PELVIS WITHOUT IV CONTRAST CLINICAL HISTORY: ?Generalized abdominal pain. ?Incisional hernia. TECHNIQUE: Non-IV contrast imaging of the abdomen and pelvis was performed using standard technique, scanning from just above the dome of the diaphragm to the symphysis pubis. ?Unenhanced imaging is limited for the evaluation of some intra-abdominal and pelvic pathology. MQ: ?CTAPWO_3 Contrast: IV: None Oral: ?50 ml of 50ML Omnipaque [address] Radiation dose: Integrated Dose-length product (DLP) for this visit = ? 738 mGy*cm. CT Dose Reduction Employed: Automated exposure control (AEC) COMPARISON: None. RESULT: Abdomen / Pelvis: Liver: Unremarkable. Biliary: Gallbladder is unremarkable. ?No ductal dilatation. Spleen: No splenomegaly. Pancreas: Unremarkable. Adrenals: No mass. Kidneys: No calculus, hydronephrosis or finding to suggest a cyst or mass in the unenhanced kidney. GI Tract: No bowel dilation. ?Appendix is unremarkable Lymph Nodes: No lymphadenopathy. Mesentery/peritoneum: No ascites. Retroperitoneum: No mass. Vasculature: No aneurysm Pelvis: No mass or ascites. Bones/Soft Tissues: No acute abnormality. Lower thorax: Unremarkable. VITALS: There were no vitals taken for this visit. On examination, her abdominal exam is benign with no palpable hernias Assessment IMPRESSION: Right upper quadrant pain, no hernias or abnormalities noted PLAN: If the patient notes any problems or signs of bulges or worsening difficulties, the patient should contact me immediately. We reviewed the CT scan together. The patient is reassured that there are no obvious acute abnormalities. Diagnoses: (R10.84) Generalized abdominal pain (primary encounter diagnosis) (K43.2) Incisional hernia, without obstruction or gangrene Return to Clinic: The patient is instructed to follow- up with me as needed. All Matias MD Referring Provider: BARI DE LA GARZA [[id number]] Allergies As of Date: 10/25/2017 Noted Allergy Reaction ZOFRAN (ONDANSETRON HCL (PF)) 10/11/2017 2 - Rash Date Reviewed: 10/25/2017 Reviewed by: All Matias - Fully Assessed Reason for Visit: Established Patient [175] Cmt: CT results- Abd pain Primary Visit Diagnosis:Generalized abdominal pain [R10.84] Other Visit Diagnosis:Incisional hernia, without obstruction or gangrene [K43.2] Prescriptions as of 10/25/2017 Sig: ATENOLOL 25 MG TABLET Take 25 mg by mouth twice loi* LEVOTHYROXINE 88 MCG CAPSULE Take by mouth. ALPRAZOLAM 1 MG TABLET Take 1 mg by mouth as needed. CHOLECALCIFEROL (VITAMIN D3) * Take 5,000 Units by mouth onc* MULTI VITAMIN ORAL Take by mouth. BENADRYL ALLERGY ORAL Take by mouth. 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 10/25/2017 8:21 AM >> OSCAR SANCHEZ LPN [facility] Oct 25, 2017 8:21 AM Please D/c BENZONATATE 100 MG CAPSULE >> Oscar Sanchez [facility] 10/25/2017 8:22 AM >> OSCAR SANCHEZ LPN [facility] Oct 25, 2017 8:22 AM Please d/c PREDNISONE 20 MG TABLET >> Oscar Sanchez [facility] 10/25/2017 8:22 AM >> OSCAR SANCHEZ LPN [facility] Oct 25, 2017 8:22 AM Please d/c Problem List As Of Date: 10/25/2017 (None) Encounter Status:Closed by ALL MATIAS MD on 10/25/17 CT ABD/PEL WO IVCON Observed: 10/19/2017 Status: F Source: [place] 3:54 PM [facility] REPOSITORY * * *Final Report* * * DATE OF EXAM: Oct 19 2017 3:54PM [facility] 0531 - CT ABD/PEL WO IVCON / PROCEDURE REASON: multiple diagnoses * * * * Physician Interpretation * * * * EXAMINATION: CT ABDOMEN AND PELVIS WITHOUT IV CONTRAST CLINICAL HISTORY: Generalized abdominal pain. Incisional hernia. TECHNIQUE: Non-IV contrast imaging of the abdomen and pelvis was performed using standard technique, scanning from just above the dome of the diaphragm to the symphysis pubis. Unenhanced imaging is limited for the evaluation of some intra-abdominal and pelvic pathology. MQ: CTAPWO_3 Contrast: IV: None Oral: 50 ml of 50ML Omnipaque [address] Radiation dose: Integrated Dose-length product (DLP) for this visit = 738 mGy*cm. CT Dose Reduction Employed: Automated exposure control (AEC) COMPARISON: None. RESULT: Abdomen / Pelvis: Liver: Unremarkable. Biliary: Gallbladder is unremarkable. No ductal dilatation. Spleen: No splenomegaly. Pancreas: Unremarkable. Adrenals: No mass. Kidneys: No calculus, hydronephrosis or finding to suggest a cyst or mass in the unenhanced kidney. GI Tract: No bowel dilation. Appendix is unremarkable Lymph Nodes: No lymphadenopathy. Mesentery/peritoneum: No ascites. Retroperitoneum: No mass. Vasculature: No aneurysm Pelvis: No mass or ascites. Bones/Soft Tissues: No acute abnormality. Lower thorax: Unremarkable. IMPRESSION: No acute abnormality Tissue Technologist: LORI Transcribe Date/Time: Oct 19 2017 4:08P Dictated by : NIKKI MARIEE MD This examination was interpreted and the report reviewed and electronically signed by: NIKKI MARIEE MD on Oct 19 2017 4:11PM EST [id number] PROGRESS Observed: 10/19/2017 Status: COMPLETED Source: [place] 3:50 PM [facility] REPOSITORY HNO ID: [id number] Author: Keila Martinez Service: (none) Author Type: (none) Type: Progress Notes Filed: 10/19/2017 3:50 PM Note Text: Radiology Service Progress Note PATIENT NAME: Ama Roberts DATE OF SERVICE: October 19, 2017 TIME: 3:50 PM PATIENT IDENTITY VERIFICATION COMPLETED USING TWO (2) METHODS: Patient confirmed name verbally and Date of . PATIENT GENDER DATA: Female. status: : No status: NO. PATIENT RELEVANT IMPLANT DATA REVIEWED: Not Applicable RADIOLOGY DEPARTMENT: CT; Exam(s) Completed: Abdomen/Pelvis PERIPHERAL IV DATA: Not applicable SIGNED BY: Keila Martinez October 19, 2017 3:50 PM PROGRESS Observed: 10/11/2017 Status: COMPLETED Source: [place] 9:04 PM [facility] REPOSITORY HNO ID: [id number] Author: All Matias Service: (none) Author Type: Physician Type: Progress Notes Filed: 10/11/2017 9:16 PM Note Text: HISTORY AND PHYSICAL Ama Roberts 1975 REFERRING PHYSICIAN: Self CHIEF COMPLAINT: Consult (Hernia x3 (including hiatal)) HPI: Ama is a 42 year old female with a complaint of a bulge and discomfort in her upper abdomen. An additional bulges and discomfort in her lower abdominal area. The patient notes discomfort in this area with lifting, moving and working out and exercising. The symptoms have increased, over the past few months. The patient notes no symptoms of bowel obstruction and denies nausea or vomiting. The patient has also made a concerted effort to lose weight. She has lost approximately 50 pounds in the last 4 months by eating healthy and working out more. She would like to lose an additional 20 or so pounds She had multiple sections in the past. She developed a right lower quadrant abdominal wall abscess that apparently had a large cavity and then required a wound VAC for treatment and closure. She now has a significant asymmetry along with laxity of her lower abdominal wall from the weight loss. In addition to cosmetic concerns, she has discomfort in the area. PAST MEDICAL HISTORY Diagnosis Date - Anxiety - HTN (hypertension) - Hypothyroid PAST SURGICAL HISTORY Procedure Laterality Date - SECTION HX 10/2002 - SECTION HX 12/16/2003 - D AND C 01/2002 - IANDD ABSC; COMPL OR MULTI 11/2010 Abd - TUBAL LIGATION HX 12/16/2003 Current Outpatient Prescriptions: atenolol (TENORMIN) 25 mg tablet Take 25 mg by mouth twice daily. Levothyroxine 88 mcg cap Take by mouth. ALPRAZolam (XANAX) 1 mg tablet Take 1 mg by mouth as needed. multivit-minerals/ferrous fum (MULTI VITAMIN ORAL) Take by mouth. diphenhydramine HCl (BENADRYL ALLERGY ORAL) Take by mouth. azithromycin (ZITHROMAX) 250 mg tablet TAKE 2 TABLETS today then TAKE 1 TABLET DAILY UNTIL GONE benzonatate (TESSALON PERLE) 100 mg capsule predniSONE (DELTASONE) 20 mg tablet cholecalciferol (VITAMIN D3) 5,000 unit tab Take 5,000 Units by mouth once daily. No current facility-administered medications for this visit. ALLERGIES: Zofran [Ondansetron Hcl (Pf)] PERSONAL HISTORY: Social History Marital status: Spouse name: Years of education: Number of children: Social History Main Topics Smoking status: Current Every Day Smoker Packs/day: 1.00 Years: 0.00 Start date: 10/11/1997 Smokeless tobacco: Never Used Alcohol use: No Drug use: No FAMILY HISTORY: FAMILY HISTORY Problem Relation Age of Onset - Hypertension Mother - Heart Father - Hypertension Father - Diabetes Son type 1 REVIEW OF SYMPTOMS: The review of systems data was entered by the nurse and reviewed by me Nursing Notes: Oscar Ross CAICEDO 10/11/2017 9:18 AM Signed REVIEW OF SYSTEMS: General: The patient denies fatigue, denies weight loss, NOTES weight gain, denies feeling hot, and denies feelings of cold. Eyes: The patient denies glaucoma, denies eye injury/surgery, wears glasses or contacts. Ear/Nose/Throat: The patient denies allergies, denies hayfever, denies ear infections, and denies bloody noses. Cardiovascular: The patient denies chest pain, denies heart disease, NOTES high blood pressure,denies cardiac stent, denies prior heart attack, denies irregular heart beat, denies high cholesterol, denies poor circulation, denies heart failure, other cardiac issues, denies claudication, denies cold feet, denies peripheral arterial stent. Respiratory: The patient denies tuberculosis, denies pneumonia, denies frequent cough, denies pulmonary embolism, denies shortness of breath, and denies coughing up blood. Gastrointestinal: The patient denies difficulty swallowing, NOTES acid reflux, NOTES ulcers, denies vomiting, denies jaundice/hepatitis, denies gallbladder problems, denies black or tarry stools, NOTES hemorrhoids, denies bleeding from rectum, denies diverticulitis, denies constipation, denies diarrhea, denies loss of stool control, and NOTES hernias. Kidney/Bladder: The patient denies kidney stones, denies urine infections, and denies bloody urine. Skin: The patient denies a history of skin cancer, denies bleeding/changing moles, and denies a history of skin rash. Neurologic: The patient denies a history of epilepsy/convulsions, denies headaches, denies head/spinal injuries, and denies stroke/TIA. Psychiatric: The patient denies psychiatric medications, denies depression, and denies voices, denies substance abuse. Endocrine: The patient NOTES thyroid disorders, denies diabetes, and NOTES hormonal problems. Hematologic: The patient denies a history of bruising, denies bleeding, and denies anemia, denies blood clots. Infections: The patient denies a history of measles and mumps, denies rheumatic fever, and denies sexually transmitted diseases. Musculoskeletal: The patient NOTES back pain/injury, NOTES back problems, denies sciatica, denies knee/foot trouble, NOTES arthritis, or denies gout. When was patient's last Mammogram screening? 2016? Last Colonoscopy: N/A Oscar Sanchez LPN PHYSICAL EXAMINATION: General: The patient is 42 year old female, well nourished, well hydrated in no acute distress. The patient is oriented to time, place, and person. VITALS: Blood pressure 104/62, pulse 62, height 167.6 cm (5' 6), weight 87.1 kg (192 lb). Body mass index is 30.99 kg/m?. HEENT: Normal cephalic, ataumatic, pupils are equally round, sclera are anicteric, mucous membranes are moist, oropharynx is clear. Neck has no masses, asymmetry or lymphadenopathy. Thyroid is unremarkable. Respiratory: Clear to auscultation and percussion. Normal respiratory excursion and pattern. Cardiac: Examination is regular rate and rhythm. Abdominal exam: Soft, nontender , upper and lower abdomen. Significant laxity of the lower midline due to weight loss with a retraction right lower quadrant of the site of her previous abscess. Questionable hernias? Rectal exam: exam deferred Extremities: no clubbing, cyanosis or edema. No adenopathy. Other: LABORATORY VALUES: As Noted RADIOLOGIC STUDIES: As Noted Assessment IMPRESSION: Previous lower abdominal incisions, abdominal laxity versus hernia, upper abdominal discomfort, questionable hernia PLAN: The patient had the leave due to an urgent family emergency. Prior to having full discussion concerning the above findings. I called the patient in the evening and recommended we start with a CT scan as she continues or weight loss. My plan is to obtain a CT scan of the abdomen and pelvis to assess these areas for hernia versus abdominal wall laxity. Diagnoses: (R10.84) Generalized abdominal pain (primary encounter diagnosis) (K43.2) Incisional hernia, without obstruction or gangrene Return to Clinic: The patient is instructed to follow-up with me after the testing has been completed. All Matias MD CNOV Observed: 10/11/2017 Status: COMPLETED Source: [place] 9:10 AM [facility] REPOSITORY Office Visit (GENSWS) AMA ROBERTS ([id number]) 1975 F Date Time Provider Department 10/11/17 9:10 AM ALL MATIAS During your visit today, we recorded the following information about you: Pulse Blood pressure Weight Height 62/minute 104/62 87.1 kg 1.676 m Oscar Sanchez [facility] 10/11/2017 9:18 AM Signed REVIEW OF SYSTEMS: General: The patient denies fatigue, denies weight loss, NOTES weight gain, denies feeling hot, and denies feelings of cold. Eyes: The patient denies glaucoma, denies eye injury/surgery, wears glasses or contacts. Ear/Nose/Throat: The patient denies allergies, denies hayfever, denies ear infections, and denies bloody noses. Cardiovascular: The patient denies chest pain, denies heart disease, NOTES high blood pressure,denies cardiac stent, denies prior heart attack, denies irregular heart beat, denies high cholesterol, denies poor circulation, denies heart failure, other cardiac issues, denies claudication, denies cold feet, denies peripheral arterial stent. Respiratory: The patient denies tuberculosis, denies pneumonia, denies frequent cough, denies pulmonary embolism, denies shortness of breath, and denies coughing up blood. Gastrointestinal: The patient denies difficulty swallowing, NOTES acid reflux, NOTES ulcers, denies vomiting, denies jaundice/hepatitis, denies gallbladder problems, denies black or tarry stools, NOTES hemorrhoids, denies bleeding from rectum, denies diverticulitis, denies constipation, denies diarrhea, denies loss of stool control, and NOTES hernias. Kidney/Bladder: The patient denies kidney stones, denies urine infections, and denies bloody urine. Skin: The patient denies a history of skin cancer, denies bleeding/changing moles, and denies a history of skin rash. Neurologic: The patient denies a history of epilepsy/convulsions, denies headaches, denies head/spinal injuries, and denies stroke/TIA. Psychiatric: The patient denies psychiatric medications, denies depression, and denies voices, denies substance abuse. Endocrine: The patient NOTES thyroid disorders, denies diabetes, and NOTES hormonal problems. Hematologic: The patient denies a history of bruising, denies bleeding, and denies anemia, denies blood clots. Infections: The patient denies a history of measles and mumps, denies rheumatic fever, and denies sexually transmitted diseases. Musculoskeletal: The patient NOTES back pain/injury, NOTES back problems, denies sciatica, denies knee/foot trouble, NOTES arthritis, or denies gout. When was patient's last Mammogram screening? 2015? Last Colonoscopy: N/A Oscar Matias MD 10/11/2017 9:16 PM Signed HISTORY AND PHYSICAL Ama Roberts 1975 REFERRING PHYSICIAN: Self CHIEF COMPLAINT: Consult (Hernia x3 (including hiatal)) HPI: Ama is a 42 year old female with a complaint of a bulge and discomfort in her upper abdomen. An additional bulges and discomfort in her lower abdominal area. The patient notes discomfort in this area with lifting, moving and working out and exercising. The symptoms have increased, over the past few months. The patient notes no symptoms of bowel obstruction and denies nausea or vomiting. The patient has also made a concerted effort to lose weight. She has lost approximately 50 pounds in the last 4 months by eating healthy and working out more. She would like to lose an additional 20 or so pounds She had multiple sections in the past. She developed a right lower quadrant abdominal wall abscess that apparently had a large cavity and then required a wound VAC for treatment and closure. She now has a significant asymmetry along with laxity of her lower abdominal wall from the weight loss. In addition to cosmetic concerns, she has discomfort in the area. PAST MEDICAL HISTORY Diagnosis Date - Anxiety - HTN (hypertension) - Hypothyroid PAST SURGICAL HISTORY Procedure Laterality Date - SECTION HX 10/2002 - SECTION HX 12/16/2003 - D AND C 01/2002 - IANDD ABSC; COMPL OR MULTI 11/2010 Abd - TUBAL LIGATION HX 12/16/2003 Current Outpatient Prescriptions: atenolol (TENORMIN) 25 mg tablet Take 25 mg by mouth twice daily. Levothyroxine 88 mcg cap Take by mouth. ALPRAZolam (XANAX) 1 mg tablet Take 1 mg by mouth as needed. multivit-minerals/ferrous fum (MULTI VITAMIN ORAL) Take by mouth. diphenhydramine HCl (BENADRYL ALLERGY ORAL) Take by mouth. azithromycin (ZITHROMAX) 250 mg tablet TAKE 2 TABLETS today then TAKE 1 TABLET DAILY UNTIL GONE benzonatate (TESSALON PERLE) 100 mg capsule predniSONE (DELTASONE) 20 mg tablet cholecalciferol (VITAMIN D3) 5,000 unit tab Take 5,000 Units by mouth once daily. No current facility-administered medications for this visit. ALLERGIES: Zofran [Ondansetron Hcl (Pf)] PERSONAL HISTORY: Social History Marital status: Spouse name: Years of education: Number of children: Social History Main Topics Smoking status: Current Every Day Smoker Packs/day: 1.00 Years: 0.00 Start date: 10/11/1997 Smokeless tobacco: Never Used Alcohol use: No Drug use: No FAMILY HISTORY: FAMILY HISTORY Problem Relation Age of Onset - Hypertension Mother - Heart Father - Hypertension Father - Diabetes Son type 1 REVIEW OF SYMPTOMS: The review of systems data was entered by the nurse and reviewed by ks Nursing Notes: Oscar Sanchez LPN 10/11/2017 9:18 AM Signed REVIEW OF SYSTEMS: General: The patient denies fatigue, denies weight loss, NOTES weight gain, denies feeling hot, and denies feelings of cold. Eyes: The patient denies glaucoma, denies eye injury/surgery, wears glasses or contacts. Ear/Nose/Throat: The patient denies allergies, denies hayfever, denies ear infections, and denies bloody noses. Cardiovascular: The patient denies chest pain, denies heart disease, NOTES high blood pressure,denies cardiac stent, denies prior heart attack, denies irregular heart beat, denies high cholesterol, denies poor circulation, denies heart failure, other cardiac issues, denies claudication, denies cold feet, denies peripheral arterial stent. Respiratory: The patient denies tuberculosis, denies pneumonia, denies frequent cough, denies pulmonary embolism, denies shortness of breath, and denies coughing up blood. Gastrointestinal: The patient denies difficulty swallowing, NOTES acid reflux, NOTES ulcers, denies vomiting, denies jaundice/hepatitis, denies gallbladder problems, denies black or tarry stools, NOTES hemorrhoids, denies bleeding from rectum, denies diverticulitis, denies constipation, denies diarrhea, denies loss of stool control, and NOTES hernias. Kidney/Bladder: The patient denies kidney stones, denies urine infections, and denies bloody urine. Skin: The patient denies a history of skin cancer, denies bleeding/changing moles, and denies a history of skin rash. Neurologic: The patient denies a history of epilepsy/convulsions, denies headaches, denies head/spinal injuries, and denies stroke/TIA. Psychiatric: The patient denies psychiatric medications, denies depression, and denies voices, denies substance abuse. Endocrine: The patient NOTES thyroid disorders, denies diabetes, and NOTES hormonal problems. Hematologic: The patient denies a history of bruising, denies bleeding, and denies anemia, denies blood clots. Infections: The patient denies a history of measles and mumps, denies rheumatic fever, and denies sexually transmitted diseases. Musculoskeletal: The patient NOTES back pain/injury, NOTES back problems, denies sciatica, denies knee/foot trouble, NOTES arthritis, or denies gout. When was patient's last Mammogram screening? 2015? 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 The patient is oriented to time, place, and person. VITALS: Blood pressure 104/62, pulse 62, height 167.6 cm (5' 6), weight 87.1 kg (192 lb). Body mass index is 30.99 kg/m?. HEENT: Normal cephalic, ataumatic, pupils are equally round, sclera are anicteric, mucous membranes are moist, oropharynx is clear. Neck has no masses, asymmetry or lymphadenopathy. Thyroid is unremarkable. Respiratory: Clear to auscultation and percussion. Normal respiratory excursion and pattern. Cardiac: Examination is regular rate and rhythm. Abdominal exam: Soft, nontender , upper and lower abdomen. Significant laxity of the lower midline due to weight loss with a retraction right lower quadrant of the site of her previous abscess. Questionable hernias? Rectal exam: exam deferred Extremities: no clubbing, cyanosis or edema. No adenopathy. Other: LABORATORY VALUES: As Noted RADIOLOGIC STUDIES: As Noted Assessment IMPRESSION: Previous lower abdominal incisions, abdominal laxity versus hernia, upper abdominal discomfort, questionable hernia PLAN: The patient had the leave due to an urgent family emergency. Prior to having full discussion concerning the above findings. I called the patient in the evening and recommended we start with a CT scan as she continues or weight loss. My plan is to obtain a CT scan of the abdomen and pelvis to assess these areas for hernia versus abdominal wall laxity. Diagnoses: (R10.84) Generalized abdominal pain (primary encounter diagnosis) (K43.2) Incisional hernia, without obstruction or gangrene Return to Clinic: The patient is instructed to follow-up with me after the testing has been completed. All Matias MD Referring Provider: BARI DE LA GARZA [[id number]] Allergies As of Date: 10/11/2017 Noted Allergy Reaction ZOFRAN (ONDANSETRON HCL (PF)) 10/11/2017 2 - Rash Date Reviewed: 10/11/2017 Reviewed by: All Matias - Fully Assessed Reason for Visit: Consult [173] Cmt: Hernia x3 (including hiatal) Primary Visit Diagnosis:Generalized abdominal pain [R10.84] Other Visit Diagnosis:Incisional hernia, without obstruction or gangrene [K43.2] Order(s):CT ABD/PEL WO IVCON [[id number]] Order #: [id number] FUTURE [] enteric contrast (will be provided with radiology test)Take 1 Each by mouth one time only for [address] ABD/PEL WO Routine order Administer, As Directed One Time Only, via Oral, Rectal, both Oral and Rectal, Enteric Tube, Stoma or Indwelling Catheter, Enteric Contrast as designated per enteric contrast guidelinesDisp: 1 EachRfl: 0 CT ABD/PEL WO IVCON [[id number]] Order #: [id number] FUTURE [] enteric contrast (will be provided with radiology test)Take 1 Each by mouth one time only for [address] ABD/PEL WO Routine order Administer, As Directed One Time Only, via Oral, Rectal, both Oral and Rectal, Enteric Tube, Stoma or Indwelling Catheter, Enteric Contrast as designated per enteric contrast guidelinesDisp: 1 EachRfl: 0 Prescriptions as of 10/11/2017 Sig: ATENOLOL 25 MG TABLET Take 25 mg by mouth twice loi* LEVOTHYROXINE 88 MCG CAPSULE Take by mouth. ALPRAZOLAM 1 MG TABLET Take 1 mg by mouth as needed. MULTI VITAMIN ORAL Take by mouth. BENADRYL ALLERGY ORAL Take by mouth. AZITHROMYCIN 250 MG TABLET TAKE 2 TABLETS today then DILCIA* BENZONATATE 100 MG CAPSULE PREDNISONE 20 MG TABLET CHOLECALCIFEROL (VITAMIN D3) * Take 5,000 Units by mouth onc* ENTERIC CONTRAST (RADIOLOGY P* Take 1 Each by mouth one time* ENTERIC CONTRAST (RADIOLOGY P* Take 1 Each by mouth one time* Problem List As Of Date: 10/11/2017 (None) Visit Notes: >> Oscar Sanchez LPN [facility] Oct 11, 2017 9:17 AM Status: Signed REVIEW OF SYSTEMS: General: The patient denies fatigue, denies weight loss, NOTES weight gain, denies feeling hot, and denies feelings of cold. Eyes: The patient denies glaucoma, denies eye injury/surgery, wears glasses or contacts. Ear/Nose/Throat: The patient denies allergies, denies hayfever, denies ear infections, and denies bloody noses. Cardiovascular: The patient denies chest pain, denies heart disease, NOTES high blood pressure,denies cardiac stent, denies prior heart attack, denies irregular heart beat, denies high cholesterol, denies poor circulation, denies heart failure, other cardiac issues, denies claudication, denies cold feet, denies peripheral arterial stent. Respiratory: The patient denies tuberculosis, denies pneumonia, denies frequent cough, denies pulmonary embolism, denies shortness of breath, and denies coughing up blood. Gastrointestinal: The patient denies difficulty swallowing, NOTES acid reflux, NOTES ulcers, denies vomiting, denies jaundice/hepatitis, denies gallbladder problems, denies black or tarry stools, NOTES hemorrhoids, denies bleeding from rectum, denies diverticulitis, denies constipation, denies diarrhea, denies loss of stool control, and NOTES hernias. Kidney/Bladder: The patient denies kidney stones, denies urine infections, and denies bloody urine. Skin: The patient denies a history of skin cancer, denies bleeding/changing moles, and denies a history of skin rash. Neurologic: The patient denies a history of epilepsy/convulsions, denies headaches, denies head/spinal injuries, and denies stroke/TIA. Psychiatric: The patient denies psychiatric medications, denies depression, and denies voices, denies substance abuse. Endocrine: The patient NOTES thyroid disorders, denies diabetes, and NOTES hormonal problems. Hematologic: The patient denies a history of bruising, denies bleeding, and denies anemia, denies blood clots. Infections: The patient denies a history of measles and mumps, denies rheumatic fever, and denies sexually transmitted diseases. Musculoskeletal: The patient NOTES back pain/injury, NOTES back problems, denies sciatica, denies knee/foot trouble, NOTES arthritis, or denies gout. When was patient's last Mammogram screening? 2015? 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 ABD/PEL WO Routine order Administer, As Directed One Time Only, via Oral, Rectal, both Oral and Rectal, Enteric Tube, Stoma or Indwelling Catheter, Enteric Contrast as designated per enteric contrast guidelines ENTERIC CONTRAST (RADIOLOGY PROCEDUR* 1 Ea* 0 10/11/2017 10/11/2017 Class: In Office Route: ORAL Sig: Take 1 Each by mouth one time only for [address] ABD/PEL WO Routine order Administer, As Directed One Time Only, via Oral, Rectal, both Oral and Rectal, Enteric Tube, Stoma or Indwelling Catheter, Enteric Contrast as designated per enteric contrast guidelines Letter Text Encounter Status:Closed by ALL MATIAS MD on 10/11/17 SCREENING MAMM (CAD), Observed: 05/17/2017 Status: F Source: BEBE BILAT 7:34 AM [facility] REPOSITORY [facility] Imaging Services [address] [place] [address] SCREENING MAMM (CAD), BILAT MR#: [id number] Acct: [id number] Name: AMA ROBERTS Rep #: [id number] : 1975 F 42 From: Mulugeta Waddell MD PCP: Bari De La Garza Status: REG CLI Study: SCREENING MAMM (CAD), BILAT Date of Exam: 05/17/17 Exam# [id number] Ordering Dr: Marino Cox MD MAMMOGRAPHY - BILATERAL SCREENING REASON FOR EXAM: Female, 42 years old. Routine annual screening examination. PERTINENT HISTORY: Non-contributory. TECHNIQUE: Digital bilateral breast desire (3D mammographic acquisition) in the CC and MLO projections. 2-D mediolateral oblique (MLO) and craniocaudad (CC) views of both breasts were obtained. CAD: Full Field Digital Mammography with Computer Added Detection was performed. COMPARISON: Comparison is made with prior examination dated July 02, 2013. FINDINGS: Breast Composition: There are scattered areas of fibroglandular density. There are no dominant masses or suspicious calcifications. No other significant abnormalities are identified. There has been no significant change since the prior study. HPBI/SCREENING MAMM (CAD), BILAT IMPRESSION: Stable bilateral screening mammogram. Yearly follow-up mammogram recommended. (A) ASSESSMENT CATEGORY: BIRADS Category 1: Negative. A letter regarding these results will be sent to the patient by the facility within 30 days. Approximately 10% of breast cancers are not detected by mammography. A normal mammogram should not delay biopsy of a clinically suspicious abnormality. [id number] Electronically Signed: Mulugeta Waddell MD at 9:53 EST Tel [phone], Service support , CC: Bari De La Garza; Marino Cox MD Tissue Technologist: Signed ALLERGIES ALLERGIES DATE TYPE / CODE NAME / CODE REACTION SEVERITY SOURCE 03/26/2018 Drug ondansetron/[id number] Nausea Unknown Bebe Allergy/416 4807(RXNORM) [facility] [id number]([facility] ED CT) Repository 10/11/2017 DRUG/[id number] ONDANSETRON HCL RASH [facility] 003([facility] () [address]) Repository ENCOUNTERS ENCOUNTERS ADMIT/DISCHARGE ACCOUNT ADMITTING ENCOUNTER LOCATION SOURCE NUMBER CLASS 04/11/2018 [id number] Ambulatory [facility] ing:LABSPEC Repository 03/26/2018 [id number] Ambulatory [facility] ing:MTLAB Repository 03/26/2018/03/26/20 [id number] Ambulatory BMSBuilding:B [place] [address] [place] Repository 11/28/2017 [id number] Ambulatory BMSBuilding:B [place] MS.[facility] Repository 11/22/2017 [id number] Ambulatory [facility] ing:LAB.FUTUR Repository E 10/31/2017/11/01/19 [id number] Ambulatory BMSBuilding:B [place] [address] [place].[facility] Repository 10/30/2017/10/31/19 [id number] Emergency [address] ing:ED Repository 10/25/2017/10/27/19 [id number] Ambulatory [address] Repository 10/19/2017/10/20/19 [id number] Ambulatory [address] Repository 10/19/2017/10/20/19 [id number] Ambulatory [address] Repository 10/11/2017/10/12/19 [id number] Ambulatory [address] Repository 05/17/2017 [id number] Ambulatory [facility] ing:BI Repository PAYERS PAYERS ENCOUNTER GUARANTOR PAYER SUBSCRIBER SOURCE 04/11/2018 AMA L Primary AMA L Bebe [id number] Insurance:FELIPA ARNDTB: [facility] [id number]ANPolicy Number: Repository [id number]: 330 [id number] [phone] (HP) Date:5433-61-26EQ [address] [place] [address] 80734CW: 04/11/2018 Secondary NOT GIVENUNK Bebe Insurance:SELF PAY [facility] Number: Effective Repository Date:2018-04-11 03/26/2018 AMA L Primary AMA L [place] [id number] Insurance:FELIPA ROBERTSDOB: [facility] [id number] PLANPolicy Number: Repository [id number]: 330 [id number] [phone] (HP) Date:4410-30-90SU [address] [place] [address] 98718HE: 03/26/2018 Secondary NOT GIVENUNK Bebe Insurance:SELF PAY [facility] Number: Effective Repository Date:2018-03-26 03/26/2018 AMA L Primary AMA L Bebe [id number] Insurance:FELIPA ROBERTSDOB: [facility] [id number] PLANPolicy Number: Repository [id number]: 330 [id number] [phone] (HP) Date:3307-55-19LR [address] [place] [address] 55615TF: 03/26/2018 Secondary NOT GIVENUNK Bebe Insurance:SELF PAY [facility] Number: Effective Repository Date:2018-03-25 11/28/2017 AMA L Primary AMA L Bebe [id number] Insurance:FELIPA ROBERTSDOB: [facility] [id number] PLANPolic Number: Repository [id number]: 330 [id number] [phone] (HP) Date:9772-81-56UH [address] [place] [address] 55209FG: 11/28/2017 Secondary NOT GIVENUNK Bebe Insurance:SELF PAY [facility] Number: Effective Repository Date:2017-11-01 11/22/2017 Ama L Primary Ama L Bebe [id number] Insurance:FELIPA DotyleshDOB: [facility] [id number] Langone Hassen[facility] Children's HospitalP[facility] Number: Repository [place], [place] [address]Lfl: [id number] Date:1193-65-42OI BOX (UM) [facility] Hospital[facility]OLINA [address]TF: 11/22/2017 Secondary NOT GIVENUNK Bebe Insurance:SELF PAY [facility] Number: Effective Repository Date:2017-05-25 10/31/2017 AMA L Primary AMA L Bebe [id number] Insurance:FELIPA [facility] CENTERRACQUELDOB: [facility] [id number] Oaks Behavioral Health CenterPolicy Number: Repository [id number]: 330 [id number] [phone] () Date:9897-10-19SV [address] [address]TT: 10/31/2017 Secondary NOT GIVENUNK [place] Insurance:SELF PAY [facility] Number: Effective Repository Date:2017-10-01 10/30/2017 AMA L Primary AMA L [place] [id number] Insurance:FELIPA MILLERESHDOB: [facility] [id number] Oaks Behavioral Health CenterPolic Number: Repository [id number]: 330 [id number] [phone] () Date:3717-72-80VO [address] [address]TK: 10/30/2017 Secondary NOT GIVENUNK [place] Insurance:SELF PAY [facility] Number: Effective Repository Date:2017-10-30 05/17/2017 Ama L Primary Ama L Bebe [id number] Insurance:FELIPA MillereshDOB: [facility] [id number]'s [place] Number: Repository [address] [place], [place] [address]Dzc: [id number] Date:3137-23-96VS [address] ( [address] [place] [address]IW: 05/17/2017 Secondary NOT GIVENUNK Bebe Insurance:SELF PAY [facility] Number: Effective Repository Date:2017-04-20
== END ==
PROVIDERS: Family Provider Internal Medicine; PCP Internal Medicine; Referring Provider Nurse Practitioner Family; Visit Provider Nurse Practitioner Family
DX: E03.9 Hypothyroidism, unspecified (principal); E56.9 Vitamin deficiency, unspecified
CPT/HCPCS: 36415; 82306; 84439; 84443

== ENCOUNTER → 2018-04-11 17:22 | Outpatient (CLI) | payer MEDICAID, SELFPAY ==
[2018-03-26 15:20] VITALS: BMI 29.1
[2018-04-16 13:27] LABS: HPV APTIMA, High Risk Negative (Negative)
== END ==
PROVIDERS: Family Provider Internal Medicine; PCP Internal Medicine; Referring Provider Obstetrics & Gynecology; Visit Provider Obstetrics & Gynecology
DX: Z12.4 Encounter for screening for malignant neoplasm of cervix (principal)
CPT/HCPCS: 88175; G0145

== ENCOUNTER → 2018-07-24 14:59 | Outpatient (CLI) | payer MEDICAID, SELFPAY ==
[2018-07-24 14:13] VITALS: BMI 32.2
--- NOTE | 2018-07-24 15:04 | RAD_ITS ---
STUDY: X-RAY CHEST REASON FOR EXAM: Female, 43 years old. Cough for several months. Smoker. TECHNIQUE: Frontal and lateral views of the chest. COMPARISON: October 30, 2017 FINDINGS: There is stable hyperexpansion. There is no demonstrated pleural abnormality. Normal size heart. Normal mediastinum and morgan. Normal visualized pulmonary arteries. Normal visualized aortic arch and descending thoracic aorta. Normal visualized thoracic spine. Normal visualized ribs, clavicles, and shoulders. There is no demonstrated abnormality of the visualized soft tissue structures of the upper abdomen. RAD/Chest PA and Lateral IMPRESSION: Stable hyperexpansion with no acute finding. Electronically Signed: Jacek Moreno MD at 17:38 EDT , Service support ,
[2018-07-24 17:40] LABS: Hematocrit 44.6 % (37-47); Hemoglobin 14.9 g/dl (12.0-15.0); Mean Corp Hgb Conc 33.4 g/gl (32-36); Mean Corpuscular Hgb 30.8 pg (27.0-32.0); Mean Corpuscular Volume 92.1 fL (81-99); Mean Platelet Vol. 11.6 fl (6.2-12.0); Platelet Count 277 K/mm3 (150-450); RBC Distribution Width CV 12.9 % (11.6-14.6); RBC Distribution Width SD 42.8 fl (35.1-43.9); Red Blood Count 4.84 M/mm3 (4.2-5.4); White Blood Count 12.2 K/mm3 (4.4-11.0)
[2018-07-24 17:43] LABS: Scan Indicated on CBC? Y/N NO
[2018-07-24 18:08] LABS: Amphetamine Urine VISTA NEGATIVE (<1000 ng/mL); Barbiturate Urine VISTA NEGATIVE (< 200 ng/mL); Benzodiazepine Urine VISTA POSITIVE (< 200 ng/mL); Cocaine Urine VISTA NEGATIVE (< 300 ng/mL); Ecstacy Urine VISTA NEGATIVE (< 500 ng/mL); Methadone Urine VISTA NEGATIVE (< 300 ng/mL); PCP Urine VISTA NEGATIVE (< 25 ng/mL); THC Urine VISTA NEGATIVE (< 50 ng/mL); Vista UDS pH Range 6
[2018-07-24 18:12] LABS: Anion Gap 5 (5-15); BUN 17 mg/dL (7-18); BUN/Creat Ratio 20.3 RATIO (10-20); Chloride 107 mmol/L (98-107); Creatinine, Serum 0.84 mg/dL (0.55-1.02); EST Glomerular Filtration Rate 78 mL/min (>60); Est Glom Filt Rate - Afr Amer 95 mL/min (>60); Glucose 73 mg/dL (74-106); Potassium 4.4 mmol/L (3.5-5.1); Sodium Level 138 mmol/L (136-145); T4 Free Direct 1.15 ng/dL (0.76-1.46); Thyroid Stim Hormone (TSH) 2.71 uIU/mL (0.358-3.74)
== END ==
PROVIDERS: Family Provider Internal Medicine; PCP Internal Medicine; Referring Provider Nurse Practitioner Family; Visit Provider Nurse Practitioner Family
DX: R05 Cough (principal); E03.9 Hypothyroidism, unspecified; F41.9 Anxiety disorder, unspecified; Z79.899 Other long term (current) drug therapy
CPT/HCPCS: 36415; 71046; 80048; 80307; 84439; 84443; 85027

== ENCOUNTER → 2018-10-30 | Outpatient (CLI) | payer MEDICAID, SELFPAY ==
[2018-10-30 09:17] VITALS: BMI 32.2
[2018-10-30 13:03] LABS: Vitamin D,25 Hydroxy 25.4 ng/mL (29.95-100.01)
[2018-10-30 13:05] LABS: T4 Free Direct 1.09 ng/dL (0.76-1.46); Thyroid Stim Hormone (TSH) 1.28 uIU/mL (0.358-3.74)
== END | disposition home or self-care (01) ==
LOC: BIMLAB 10:06
PROVIDERS: Family Provider Internal Medicine; PCP Internal Medicine; Visit Provider Nurse Practitioner Family
DX: E03.9 Hypothyroidism, unspecified (principal); E55.9 Vitamin D deficiency, unspecified
CPT/HCPCS: 36415; 82306; 84439; 84443

== ENCOUNTER → 2019-03-06 11:49 | Outpatient (CLI) | payer SELFPAY ==
[2019-03-06 11:19] VITALS: BMI 32.8
[2019-03-06 12:40] LABS: Hematocrit 44.1 % (37-47); Hemoglobin 14.3 g/dL (12.0-15.0); Mean Corp Hgb Conc 32.4 g/dL (32-36); Mean Corpuscular Hgb 30.6 pg (27.0-32.0); Mean Corpuscular Volume 94.2 fL (81-99); Mean Platelet Vol. 10.9 fl (6.2-12.0); Platelet Count 239 K/mm3 (150-450); RBC Distribution Width SD 44.8 fl (35.1-43.9); Red Blood Count 4.68 M/mm3 (4.2-5.4); White Blood Count 11.2 K/mm3 (4.4-11.0)
[2019-03-06 13:03] LABS: Anion Gap 6 (5-15); BUN 13 mg/dL (7-18); BUN/Creat Ratio 14.3 RATIO (10-20); Calcium,Total 8.9 mg/dL (8.5-10.1); Chloride 107 mmol/L (98-107); Cholesterol 166 mg/dL (200); Creatinine, Serum 0.91 mg/dL (0.55-1.02); EST Glomerular Filtration Rate 71 mL/min (>60); Est Glom Filt Rate - Afr Amer 86 mL/min (>60); Glucose 112 mg/dL (74-106); High Density Lipoprotein 37 mg/dL; Potassium 3.7 mmol/L (3.5-5.1); Sodium Level 141 mmol/L (136-145); Thyroid Stim Hormone (TSH) 1.17 uIU/mL (0.358-3.74); Triglycerides 258 mg/dL; Very Low Density Lipoprotein 52 mg/dL (5-40); Vitamin D,25 Hydroxy 22.7 ng/mL (29.95-100.01)
== END ==
PROVIDERS: Family Provider Internal Medicine; PCP Internal Medicine; Visit Provider Nurse Practitioner Family
DX: I10 Essential (primary) hypertension (principal); E78.5 Hyperlipidemia, unspecified; E03.9 Hypothyroidism, unspecified; F41.9 Anxiety disorder, unspecified; E55.9 Vitamin D deficiency, unspecified
CPT/HCPCS: 36415; 80048; 80061; 82306; 84443; 85027

== ENCOUNTER → 2019-06-17 | Outpatient (CLI) | payer MEDICAID, SELFPAY ==
[2019-06-17 08:50] VITALS: BMI 32.8
[2019-06-17 12:20] LABS: Amphetamine Urine VISTA NEGATIVE (<1000 ng/mL); Barbiturate Urine VISTA NEGATIVE (< 200 ng/mL); Benzodiazepine Urine VISTA POSITIVE (< 200 ng/mL); Cocaine Urine VISTA NEGATIVE (< 300 ng/mL); Ecstacy Urine VISTA NEGATIVE (< 500 ng/mL); Methadone Urine VISTA NEGATIVE (< 300 ng/mL); PCP Urine VISTA NEGATIVE (< 25 ng/mL); THC Urine VISTA NEGATIVE (< 50 ng/mL); Vista UDS pH Range 5
== END | disposition home or self-care (01) ==
LOC: BIMLAB 09:22
PROVIDERS: PCP Internal Medicine; Referring Provider Internal Medicine; Visit Provider Internal Medicine
DX: R41.9 Unspecified symptoms and signs involving cognitive functions and awareness (principal)
CPT/HCPCS: 80307

== ENCOUNTER → 2019-08-27 | Outpatient (CLI) | payer MEDICAID, SELFPAY ==
[2019-06-17 08:50] VITALS: BMI 32.8
[2019-08-29 05:46] LABS: HPV APTIMA, High Risk Negative (Negative)
[2019-08-29 20:41] LABS: HPV Reflexed? YES, CHARGE PATIENT
== END | disposition home or self-care (01) ==
LOC: LABSPEC 12:53
PROVIDERS: PCP Internal Medicine; Referring Provider Obstetrics & Gynecology; Visit Provider Obstetrics & Gynecology
DX: Z12.4 Encounter for screening for malignant neoplasm of cervix (principal)
CPT/HCPCS: 87624; 88175; G0145

== ENCOUNTER → 2019-11-26 | Outpatient (CLI) | payer MEDICAID, SELFPAY ==
[2019-06-17 08:50] VITALS: BMI 32.8
[2019-11-26 12:51] LABS: Hemoglobin A1c 5.9 % (3.8-5.6)
[2019-11-26 12:58] LABS: Thyroid Stim Hormone (TSH) 2.88 uIU/mL (0.358-3.74)
== END | disposition home or self-care (01) ==
LOC: BFHLAB 09:21
PROVIDERS: PCP Internal Medicine; Visit Provider Family Medicine
DX: E03.9 Hypothyroidism, unspecified (principal); E11.9 Type 2 diabetes mellitus without complications
CPT/HCPCS: 36415; 83036; 84439; 84443

== ENCOUNTER → 2020-03-23 09:07 | Outpatient (CLI) | payer MEDICAID, SELFPAY ==
[2020-03-15 11:50] VITALS: BMI 32.8
[2020-03-23 12:41] LABS: Free T3 2.6 pg/mL (2.18-3.98); T4 Free Direct 1.36 ng/dL (0.76-1.46); T4 Total, Thyroxin 12.9 ug/dL (4.8-13.9); Thyroid Stim Hormone (TSH) 1.88 uIU/mL (0.358-3.74)
[2020-03-23 13:24] LABS: T3 Total - Triiodothyronine 1.29 ng/mL (0.6-1.81)
== END ==
PROVIDERS: PCP Family Medicine; Visit Provider Family Medicine
DX: E03.9 Hypothyroidism, unspecified (principal)
CPT/HCPCS: 36415; 84436; 84439; 84443; 84480; 84481

== ENCOUNTER 2020-08-01 06:30 | Emergency (ER) | payer MEDICAID, SELFPAY ==
[2020-06-17 14:46] VITALS: BMI 38.2
[2020-08-01 06:31] VITALS: BP 119/93; PULSE 85; RESP 16; TEMP 36.4; O2SAT 98; BMI 36.9
[2020-08-01 06:33] VITALS: BP 119/93; PULSE 85; RESP 16; TEMP 36.4; O2SAT 98
[2020-08-01] MEDS: 0.9% Normal Saline 1,000 ML 1000 ML IV (06:56)
[2020-08-01] MEDS: proMETHazine 25 MG Tablet PO (06:56)
[2020-08-01] MEDS: Famotidine 200 MG/20 ML MDV 20 MG in 0.9% Normal Saline (Pres. free 8 ML 300 MG IV (06:57)
[2020-08-01 07:03] LABS: Absolute Lymphocyte Count 2.99 X10^3/uL (0.83-4.51); Absolute Neutrophil Count 7.5 X10^3/uL (2.0-7.7); Basophil# 0.04 X10^3/uL; Basophil% 0.4 % (0-1); Eosinophils% 0.9 % (0-5); Hematocrit 48.2 % (37-47); Hemoglobin 15.4 g/dL (12.0-15.0); Lymphocyte # 2.99 X10^3/ul (0.83-4.51); Lymphocyte % 26.8 % (19-41); Mean Corpuscular Hgb 29.4 pg (27.0-32.0); Mean Platelet Vol. 10.8 fl (6.2-12.0); Monocyte# 0.48 X10^3/uL; Monocyte% 4.3 % (0-10); NRBC Flagged by Analyzer 0 % (0-5); Neutrophil # 7.52 X10^3/uL (2.7-7.7); Neutrophil % 67.2 % (47-70); Platelet Count 318 K/mm3 (150-450); RBC Distribution Width CV 12.7 % (11.6-14.6); RBC Distribution Width SD 43.1 fl (35.1-43.9); Red Blood Count 5.24 M/mm3 (4.2-5.4); White Blood Count 11.2 K/mm3 (4.4-11.0)
[2020-08-01 07:09] LABS: AST(SGOT) 23 U/L (15-37); Alanine Aminotransfer ALT/SGPT 33 U/L (13-56); Albumin, Serum 3.6 g/dL (3.2-5.0); Alkaline Phosphatase 89 U/L (45-117); Anion Gap 6 (5-15); BUN 7 mg/dL (7-18); BUN/Creat Ratio 9.2 RATIO (10-20); Bilirubin, Direct 0.13 mg/dL (0.00-0.30); Calcium,Total 9.3 mg/dL (8.5-10.1); Chloride 107 mmol/L (98-107); Creatinine, Serum 0.76 mg/dL (0.55-1.02); EST Glomerular Filtration Rate 86 mL/min (>60); Est Glom Filt Rate - Afr Amer 104 mL/min (>60); Estimated Creatinine Clearance 88.99 ml/min; Globulin 3.8 g/dL (2.2-4.2); Glucose 99 mg/dL (74-106); Lipase 160 U/L (73-393); Potassium 3.7 mmol/L (3.5-5.1); Protein, Total 7.4 g/dL (6.4-8.2); Sodium Level 139 mmol/L (136-145)
--- NOTE | 2020-08-01 07:46 | ED.DCSUM_ITS ---
History of Present Illness Chief Complaint: Nausea/Vomiting Informant: Patient Onset: Yesterday Context: Gradual Onset Current Severity: Moderate Maximum Severity: Moderate Narrative: Patient present secondary to nausea and vomiting. She states yesterday during the day she developed a mild cramp or pain in her right side. Last evening she started having increasing belching. Overnight she developed vomiting with difficulty keeping anything down. No fever or chills. - Past Medical History (1) Hyperlipemia Status: Chronic (2) Polycystic ovarian disease Status: Chronic (3) Anxiety Status: Chronic (4) Diabetes Status: Chronic (5) Hypertension Status: Chronic (6) Hypothyroidism Status: Chronic Past Medical History - Allergies and Home Meds Allergies/Adverse Reactions: Allergies ondansetron [From Zofran (as hydrochloride)] Allergy (Verified 08/01/20 06:35) Nausea Primary Care Physician: Ismael De La Garza DO [Primary Care Provider] - 3-5 Days if not improving Prior records reviewed: Yes Surgical History: - Smoking Status: Current every day smoker Review of Systems General: Denies: Chills, Fever Eyes: Denies: Visual changes - bilaterally ENT: Denies: Bilateral ear pain Cardiovascular: Denies: Chest pain Respiratory: Denies: Dyspnea, Cough Gastrointestinal: Reports: Abdominal pain, Nausea, Vomiting. Denies: Diarrhea Genitourinary: Denies: Dysuria, Hematuria Musculoskeletal: Denies: Swelling, Extremity Pain Skin: Denies: Rash Neurological: Denies: Headache Psych: Denies: Depression Hematologic: Denies: Easy bruising, Easy bleeding Allergy: Denies: Uticaria Physical Exam Vital Signs/Narrative: Vital Signs Temp Pulse Resp BP Pulse Ox 08/01/20 06:33 97.5 F L 85 16 119/93 H 98 08/01/20 06:31 97.5 F L 85 16 119/93 H 98 Inital Vital Signs reviewed: Yes General: Well nourished, Well developed Head: Normocephalic ENT: Moist mucous membranes Neck: Supple Cardiovascular: Regular rate, Regular rhythm Respiratory: No distress, CTA bilaterally Abdomen: Soft, Tender - Mild epigastric tenderness to palpation., Hypoactive bowel sounds. Negative for: Guarding, Rebound tenderness Extremities: Nontender Skin: Normal color Neurological: Alert, Oriented x3, Normal Strength, Normal Sensation Psychological: Normal affect Diagnostic/Tx/Re-eval Laboratory Results 08/01/20 08/01/20 06:38 06:38 WBC 11.2 H RBC 5.24 Hgb 15.4 H Hct 48.2 H MCV 92.0 MCH 29.4 MCHC 32.0 RDW Std Deviation 43.1 RDW Coeff of Rashmi 12.7 Plt Count 318 MPV 10.8 Immature Gran % (Auto) 0.400 Neut % (Auto) 67.2 Lymph % (Auto) 26.8 [place] % (Auto) 4.3 Eos % (Auto) 0.9 Baso % (Auto) 0.4 Absolute Neuts (auto) 7.5 Absolute Lymphs (auto) 2.99 Nucleated RBC % 0 Sodium 139 Potassium 3.7 Chloride 107 Carbon Dioxide 26.0 Anion Gap 6 BUN 7 Creatinine 0.76 Estim Creat Clear Calc 88.99 Est GFR (MDRD) Af Amer 104 Est GFR (MDRD) Non-Af 86 BUN/Creatinine Ratio 9.2 L Glucose 99 Calcium 9.3 Total Bilirubin 0.40 Direct Bilirubin 0.13 AST 23 ALT 33 Alkaline Phosphatase 89 Total Protein 7.4 Albumin 3.6 Globulin 3.8 Lipase 160 - Medical Decision Making Patient was given IV fluids along with p.o. Phenergan and Pepcid. On repeat evaluation patient does have significant improvement in her symptoms. Test results discussed with the patient. No significant lab abnormalities are noted. She will be given a prescription for Phenergan tabs at home as needed. ED Disposition - Plan for ED Patient: Disposition: Home or Assisted Living Diagnosis: Vomiting Instructions: ED Vomiting (Adult) Prescriptions: proMETHazine tablet [Phenergan] 25 mg PO Q6H PRN PRN #10 tab PRN Reason: Nausea Transmission Status: Received by [employer] #[id number] Referrals: Ismael De La Garza DO [Primary Care Provider] - 3-5 Days if not improving
[2020-08-01 08:09] VITALS: BP 130/87; PULSE 75; RESP 18
== END 2020-08-01 08:13 | disposition home or self-care (01) ==
PROVIDERS: Emergency Provider Emergency Medicine; PCP Family Medicine
DX: R11.2 Nausea with vomiting, unspecified (principal); I10 Essential (primary) hypertension; E78.5 Hyperlipidemia, unspecified; E03.9 Hypothyroidism, unspecified; F17.200 Nicotine dependence, unspecified, uncomplicated; Z79.899 Other long term (current) drug therapy
CPT/HCPCS: 80048; 80076; 83690; 85025; 96361; 96374; 99285; J7030; A4216; J3490

== ENCOUNTER → 2020-09-01 07:32 | Outpatient (CLI) | payer MEDICAID, SELFPAY ==
[2020-06-17 14:46] VITALS: BMI 38.2
--- NOTE | 2020-09-01 07:35 | BI_ITS ---
MAMMOGRAPHY - BILATERAL SCREENING 3-D TOMOSYNTHESIS REASON FOR EXAM: Female, 45 years old. Routine screening PERTINENT HISTORY: No significant family history. TECHNIQUE: 2-D mammograms and 3-D Tomosynthesis of the breast (s) were performed. CAD was performed. COMPARISON: 05/17/17 FINDINGS: The breast composition is composed of scattered fibroglandular density. Scattered benign calcifications are seen. No dense spiculated masses or suspicious microcalcifications are identified. No architectural distortion is identified. There is no skin thickening or retraction. There has been no significant change since the prior study. BI/SCRN MAMM (CAD)W/FIDEL BILAT IMPRESSION: No mammographic signs of malignancy. Routine yearly mammograms recommended. ASSESSMENT CATEGORY: BIRADS Category 1: Negative. A letter regarding these results will be sent to the patient by the facility within 30 days. FOLLOW UP RECOMMENDATION: Yearly follow up mammogram recommended. (A) Approximately 10% of breast cancers are not detected by mammography. A normal mammogram should not delay biopsy of a clinically suspicious abnormality. Electronically Signed: Solitario Frias MD at 8:25 EDT , Service support ,
== END ==
PROVIDERS: PCP Family Medicine; Referring Provider Obstetrics & Gynecology; Visit Provider Obstetrics & Gynecology
DX: Z12.31 Encounter for screening mammogram for malignant neoplasm of breast (principal); Z12.4 Encounter for screening for malignant neoplasm of cervix
CPT/HCPCS: 77063; 77067; 88175; 88305; G0145

== ENCOUNTER → 2020-09-01 | Outpatient (CLI) | payer MEDICAID, SELFPAY ==
--- NOTE | 2020-09-01 | EMB_PTH ---
PATIENT: CHRIS STRATTON LOC: [facility] U#:[id number] AGE/SX: 45/F ROOM: RE09/01/[address]: Dr. Marino Cox MD : 1975 BED: DIS: 09/01/2020 SPEC #: [id number] RECD: 09/01/20 14:42 STATUS: ED REQ #: [id number] LUCAS: 09/01/20 00:[address]: Marino Cox DEPT: SURGICAL PATHOLOGY RECD BY: Rajesh Castro ENTERED: 09/02/20 07:28 SP TYPE: ENDOM BX/C YRIS DR: Dr. Ismael De La Garza, DO Tissues: Endometrium, NOS Procedures: Surgery Specimen Level IV HEADER OPERATION: Endometrial biopsy PRE-OP DIAGNOSIS: Abnormal uterine bleeding TISSUE SUBMITTED: Endometrial biopsy MICROSCOPIC DIAGNOSIS Endometrial biopsy: Proliferative endometrium with glandular and stromal breakdown. SJ:keturah 09/03/2020 MICROSCOPIC DESCRIPTION Slides are reviewed. GROSS DESCRIPTION Received in fixative is one container labeled with the patient's name and designated EMB. The specimen consists of multiple fragments of hemorrhagic soft tissue that in aggregate measure 2.5 x 1 x 0.1 cm. The specimen is totally submitted in one cassette. / SJ:keturah 09/02/20 TC:5 CPT: 95004
[2020-09-06 19:41] LABS: HPV Reflexed? NOT INDICATED
== END | disposition home or self-care (01) ==
LOC: LABSPEC 14:31
PROVIDERS: PCP Family Medicine; Visit Provider Obstetrics & Gynecology
DX: Z12.4 Encounter for screening for malignant neoplasm of cervix (principal)
CPT/HCPCS: 88175; 88305; G0145

== ENCOUNTER → 2020-12-24 09:45 | Outpatient (CLI) | payer MEDICAID, SELFPAY ==
[2020-12-24 12:36] LABS: Vitamin B12 385 pg/mL (211-911); Vitamin D,25 Hydroxy 63.4 ng/mL
[2020-12-24 12:49] LABS: Cholesterol 149 mg/dL (200); High Density Lipoprotein 34 mg/dL; T4 Free Direct 1.21 ng/dL (0.76-1.46); Thyroid Stim Hormone (TSH) 2.85 uIU/mL (0.358-3.74); Triglycerides 146 mg/dL; Very Low Density Lipoprotein 29 mg/dL (5-40)
== END ==
PROVIDERS: PCP Family Medicine; Referring Provider Nurse Practitioner Family; Visit Provider Nurse Practitioner Family
DX: E11.65 Type 2 diabetes mellitus with hyperglycemia (principal); E55.9 Vitamin D deficiency, unspecified; E66.01 Morbid (severe) obesity due to excess calories; R20.2 Paresthesia of skin; Z68.38 Body mass index [BMI] 38.0-38.9, adult
CPT/HCPCS: 36415; 80061; 82306; 82607; 84439; 84443

== ENCOUNTER → 2021-03-17 07:12 | Outpatient (CLI) | payer MEDICAID, SELFPAY ==
--- NOTE | 2021-03-17 07:14 | US_ITS ---
STUDY: SUPERFICIAL ULTRASOUND - ABDOMINAL WALL. REASON FOR EXAM: Female, 45 years old. Ventral hernia -- insurance company wanted the US before the CT TECHNIQUE: A superficial ultrasound was performed with real-time and static lainez-scale imaging. COMPARISON: None. FINDINGS: No evidence of ventral hernia. US/Abdomen Limited IMPRESSION: No evidence of ventral hernia. Electronically Signed: Mulugeta Waddell MD at 10:21 EST , Service support ,
== END ==
PROVIDERS: PCP Family Medicine; Referring Provider Surgery; Visit Provider Surgery
DX: K43.9 Ventral hernia without obstruction or gangrene (principal); E65 Localized adiposity; F17.200 Nicotine dependence, unspecified, uncomplicated; L30.4 Erythema intertrigo; L57.4 Cutis laxa senilis; M54.50 Low back pain, unspecified; M62.08 Separation of muscle (nontraumatic), other site
CPT/HCPCS: 76705

== ENCOUNTER 2021-05-18 08:18 | Outpatient (CLI) | payer MEDICAID, SELFPAY | END 2021-05-18 23:59 | disposition short-term general hospital (02) | PROVIDERS: PCP Family Medicine; Referring Provider Family Medicine; Visit Provider Family Medicine | DX: R79.89 Other specified abnormal findings of blood chemistry (principal) | CPT/HCPCS: 36415; 82533 ==

== ENCOUNTER 2021-11-06 19:37 | Emergency (ER) | payer MEDICAID, SELFPAY ==
[2021-11-06 19:40] VITALS: BP 123/85; PULSE 107; RESP 16; TEMP 36.2; O2SAT 97; BMI 32.1
--- NOTE | 2021-11-06 20:03 | EDS_ITS ---
HPI HPI - GI History of Present Illness Chief Complaint: Abd Pain Informant: patient Abdominal Pain/Flank Pain Onset: Weeks (1.5) Context: Gradual Onset Timing: Continuous Quality: - (sore) Location: LLQ Current Severity: Moderate Maximum Severity: Moderate Worsened by: Movement and - (coughing) Relieved by: Nothing Nausea/Vomiting/Emesis GI Symptom: Negative for Nausea or Vomiting Diarrhea/Melena/Hematochezia GI Symptom: Negative for Diarrhea, Melena or Hematochezia Associated Symptoms Associated Symptoms: Negative for Dysuria, Frequency or Hematuria Narrative Narrative: And had a breast reduction and abdominoplasty about 2 months ago, she states drains were removed remotely and for the past week and a half she is had what feels like a nodule or collection that has developed in the left side of the incision. There is no drainage from it outside. It has gotten bigger. She called her plastic surgeon but has not been able to get back in, so presents for evaluation. She denies any fevers or chills. PFSH [facility] Medical History 2 vaginal deliveries Anxiety Arthritis Back problem Bone fracture Cardiac arrhythmia, unspecified Current every day smoker GERD (gastroesophageal reflux disease) History of migraine Hyperlipemia Hypothyroidism Polycystic ovarian disease Seasonal allergies Vitamin deficiency Home Medications ibuprofen 200 mg tablet 200 mg PO TID-QID PRN Pain 1-10 Or Fever 10/31/17 [History Last Taken Unknown] alprazolam 1 mg tablet 1 mg PO QDAY PRN Anxiety #30 tabs 09/24/19 [Rx Last Taken Unknown] cholecalciferol (vitamin D3) 125 mcg (5,000 unit) capsule 5,000 unit PO DAILY 06/17/20 [History Last Taken Unknown] levothyroxine 112 mcg tablet 112 mcg PO DAILY 06/17/20 [History Last Taken Unknown] atenolol 25 mg tablet 1 tablet PO DAILY 08/01/20 [History Last Taken Unknown] pen needle, diabetic 32 gauge x 32 (BD Ultra-Fine Pennie Pen Needle) #100 ea 11/10/20 [Rx Last Taken Unknown] Ozempic 1 mg/dose (2 mg/1.5 mL) subcutaneous pen injector (semaglutide) 0.5 mg (0.375 mL) subcut QWEEK #3 mL 01/17/21 [Rx Last Taken Unknown] Allergy/AdvReac Type Severity Reaction Status Date / Time ondansetron Allergy Hives Verified 11/06/21 19:43 [From Zofran (as hydrochloride)] Family History Grandfather Cancer Alcohol abuse Father Anxiety Arthritis Myocardial infarction Hypertension Mother Heart disease Hypertension Son Asthma Diabetes Uncle Thyroid disorder Surgical History History of 2 sections History of tubal ligation Social History Smoking Status: Former smoker alcohol intake: never substance use type: does not use what type of physical activity do you participate in: walking frequency: daily ROS ROS ED Constitutional Constitutional ED: Denies chills or fever(s) Eyes Eyes: Denies change in vision or diplopia ENT ENT ED: Denies rhinorrhea or sore throat Cardiovascular Cardiovascular: Denies chest pain or palpitations Respiratory/Chest Respiratory/Chest: Denies cough or dyspnea Gastrointestinal Gastrointestinal: Reports as per HPI and abdominal pain; Denies diarrhea, nausea or vomiting Genitourinary Genitourinary ED: Denies dysuria or hematuria Musculoskeletal Musculoskeletal: Denies back pain or neck pain Integumentary Reports as per HPI; Denies abscess or rash Neurologic Neurologic: Denies headache(s), paresthesias or weakness Psychiatric Psychiatric: Denies anxiety or suicidal thoughts EXAM Physical Exam Const Vital Signs: 11/06/21 19:40 11/06/21 23:08 Temperature 97.2 F L Temperature Source Temporal Pulse Rate 107 H 74 Respiratory Rate 16 18 Blood Pressure 123/85 H 117/83 H Blood Pressure Mean 97 94 Pulse Ox 97 97 Oxygen Delivery Method Room Air Room Air Positive well nourished and well developed General Appearance ED: well developed and NAD HEENT Reports moist mucous membranes normocephalic and atraumatic Eyes PERRL and EOMs intact bilaterally Neck full ROM and supple Resp normal respiratory effort and clear to auscultation bilaterally Cardio regular rate, regular rhythm and no murmurs GI non-distended GI Narrative: Well-healed recent abdominoplasty incision below the umbilicus, there are a couple of very small areas that are incompletely healed but there is no discharge from them or any surrounding erythema. To the left side of the incision, there is a palpable nodule, it feels like it is about 2 cm in diameter, however the patient also has pain more superior to this, her mild obesity limits the exam somewhat but it is possible I am palpating a much larger abnormal area. There is no overlying erythema or skin abnormality. Auscultation: normoactive bowel sounds Palpation: soft Back/Spine no CVA tenderness General Back: other FROM Extremity normal to inspection General Extremety ED: Negative for edema, pulses abnormal or tenderness General Extremity: Negative for edema or pulses abnormal Neuro oriented x3, CN's II-XII intact bilaterally and no sensory deficits noted Sensorium / Orientation: awake and alert Motor Exam: strength 5/5 throughout Skin no rashes or lesions noted and no wounds MDM MDM MDM Narrative Medical decision making narrative: Patient does have a bit of a leukocytosis. CT was obtained to evaluate this fluid collection, it is quite big, [address] is more consistent with a seroma/hematoma rather than abscess, consistent with infection as well since there is no erythema and the tenderness is very mild. I attempted to discuss with her surgeon Dr. Yon Ridley, however he was on-call but not available at the time. The patient does not want to wait and would prefer to follow-up in the office. I will send the CT imaging to the [facility] oil prospecting observer, and she will follow-up closely as an outpatient. Lab Data Attestation: I reviewed the patient's lab results. Labs: Laboratory Results - last 24 hr 11/06/21 11/06/21 20:20 20:20 WBC 14.2 H RBC 4.46 Hgb 13.9 Hct 41.8 MCV 93.7 MCH 31.2 MCHC 33.3 RDW Std Deviation 45.4 H RDW Coeff of Rashmi 13.3 Plt Count 307 MPV 10.8 Immature Gran % (Auto) 0.500 Neut % (Auto) 65.5 Lymph % (Auto) 26.9 [place] % (Auto) 5.1 Eos % (Auto) 1.7 Baso % (Auto) 0.3 Absolute Neuts (auto) 9.3 H Absolute Lymphs (auto) 3.82 Nucleated RBC % 0 Sodium 141 Potassium 3.9 Chloride 107 Carbon Dioxide 27.0 Anion Gap 7 BUN 16 Creatinine 0.76 Estim Creat Clear Calc 84.75 Est GFR (MDRD) Af Amer 104 Est GFR (MDRD) Non-Af 86 BUN/Creatinine Ratio 21.0 H Glucose 104 Calcium 8.9 Radiography Diagnostic Testing: Clinical Impression(s) from Imaging Studies Abdomen/Pelvis CT 11/06/21 20:03 IMPRESSION: 1. LEFT lower quadrant subcutaneous fluid collection measuring 7.3 x 3.9 x 7.0 cm. This does abut the anterior surface the rectus sheath without penetrating the abdominal muscular wall. Findings consistent with a seroma/hematoma. 2. Mild subcutaneous stranding in the transverse position consistent with postop change. No evidence of hernia. 3. No masses bowel obstruction abscess free fluid or free air. Diverticulosis without evidence diverticulitis. 4. No evidence of obstructive uropathy. 5. No radiodense calcifications in the gallbladder. Electronically Signed: All Medeiros MD at 22:31 EDT Reading Location ID and State: [facility] / [place] Tel , Service support , Discharge Plan Triage Chief Complaint: Abd Pain ED Provider: Jose Sullivan Dx/Rx/DC Orders Clinical Impression: Postoperative seroma of skin after dermatologic procedure Instructions: ED Seroma, Postsurgical Prescriptions: No Action ibuprofen 200 mg tablet 200 mg PO TID-QID PRN (Reason: Pain 1-10 Or Fever) levothyroxine 112 mcg tablet 112 mcg PO DAILY cholecalciferol (vitamin D3) 125 mcg (5,000 unit) capsule 5,000 unit PO DAILY Label Comments: TAKE 1 CAPSULE BY MOUTH DAILY FOR VITAMIN DAILY DEFICIENCY atenolol 25 MG tablet 1 tablet PO DAILY Rx Instructions: TAKE ONE TABLET BY MOUTH EVERY DAY alprazolam 1 mg tablet 1 mg PO QDAY PRN (Reason: Anxiety) Qty: 30 0RF (DME) pen needle, diabetic [BD Ultra-Fine Pennie Pen Needle] 32 gauge x 5/32 needle See Rx Instructions .ROUTE .MEDSUPPLY Qty: 100 3RF Rx Instructions: daily Ozempic 1 mg/dose (2 mg/1.5 mL) pen injector 0.5 mg subcut QWEEK Qty: 3 3RF Primary Care Provider: Ismael De La Garza Referrals: Beddell, Dr. [Other] - As soon as possible Ismael De La Garza, [Primary Care Provider] - Disposition Disposition: Home, Self Care
--- NOTE | 2021-11-06 20:03 | CT_ITS ---
INDICATION: postoperative abd wall collection/pain EXAMINATION: CT ABDOMEN AND PELVIS with CONTRAST - CT Abdomen And Pelvis W/ Contrast Injection TECHNIQUE: Multiple axial images were obtained of the abdomen following administration of IV contrast. Planar reconstructions obtained. A radiation dose optimization technique was used for this scan. RADIATION DOSAGE (If Supplied By Facility): CTDIvol = ( 16.93 ) mGy, DLP = ( 1129.22 ) mGycm IV Contrast dosage and agent: 100 mL Isovue 300 Oral contrast: None. COMPARISON: None. FINDINGS: AREAS OF INTEREST: 1. There is a moderate-sized subcutaneous fluid collection in the LEFT lower quadrant, measuring 7.3 x 3.9 cm in axial dimension, and 7.0 cm in superior to inferior dimension. This does abut the external surface of the rectus sheath however does not penetrate the muscular abdominal wall. 2. Mild surrounding soft tissue stranding which appears to be associated with a transverse incision. REMAINING EXAMINATION: LOWER THORAX: Lungs are clear. HEPATOBILIARY: Liver: The liver is homogeneous and shows no evidence of focal lesion. Minimal fatty deposition along falciform ligament. Gallbladder: Gallbladder is contracted. No radiodense calcifications noted. No ductal dilatation. Pancreas: Pancreas is normal size configuration and density. No mass is noted. Spleen: The spleen is homogeneous and normal in size. . BOWEL: Stomach: The stomach is normal in size configuration, no evidence of focal masses, abnormal calcifications. No hiatal hernia noted. Bowel: Small and large have normal configuration, no masses or bowel obstruction noted. Mild diverticulosis without diverticulitis. Appendix: The visualized appendix has normal appearance.: GENITOURINARY: Adrenals: Both adrenal glands are normal in size. Kidneys: Kidneys appear symmetric in size. No calcifications are seen in the collecting system. There is no hydronephrosis or surrounding fluid. Bladder: Normal Pelvic organs: The visualized pelvic organs are normal in size and configuration. No masses or adenopathy noted. RETROPERITONEUM: There is normal appearance of the abdominal aorta and inferior vena cava. Minimal calcifications noted. LYMPH NODES: No evidence of retroperitoneal or para-aortic masses fluid collections or adenopathy. PERITONEAL CAVITY: No ascites noted ANTERIOR ABDOMINAL WALL: No evidence of hernia, LEFT lower quadrant subcutaneous encapsulated fluid collection/hematoma versus seroma BONES AND SOFT TISSUES: The skeleton shows no evidence for fractures or destructive lesions. OTHER: None CT/Abdomen/Pelvis W IV Cont ONLY IMPRESSION: 1. LEFT lower quadrant subcutaneous fluid collection measuring 7.3 x 3.9 x 7.0 cm. This does abut the anterior surface the rectus sheath without penetrating the abdominal muscular wall. Findings consistent with a seroma/hematoma. 2. Mild subcutaneous stranding in the transverse position consistent with postop change. No evidence of hernia. 3. No masses bowel obstruction abscess free fluid or free air. Diverticulosis without evidence diverticulitis. 4. No evidence of obstructive uropathy. 5. No radiodense calcifications in the gallbladder. Electronically Signed: All Medeiros MD at 22:31 EDT ,
[2021-11-06 20:33] LABS: Absolute Lymphocyte Count 3.82 X10^3/uL (0.83-4.51); Absolute Neutrophil Count 9.3 X10^3/uL (2.0-7.7); Basophil# 0.04 X10^3/uL; Basophil% 0.3 % (0-1); Eosinophil# 0.24 X10^3/uL; Eosinophils% 1.7 % (0-5); Hematocrit 41.8 % (37-47); Hemoglobin 13.9 g/dL (12.0-15.0); Lymphocyte # 3.82 X10^3/ul (0.83-4.51); Lymphocyte % 26.9 % (19-41); Mean Corp Hgb Conc 33.3 g/dL (32-36); Mean Corpuscular Hgb 31.2 pg (27.0-32.0); Mean Corpuscular Volume 93.7 fL (81-99); Mean Platelet Vol. 10.8 fl (6.2-12.0); Monocyte# 0.72 X10^3/uL; Monocyte% 5.1 % (0-10); NRBC Flagged by Analyzer 0 % (0-5); Neutrophil # 9.29 X10^3/uL (2.7-7.7); Neutrophil % 65.5 % (47-70); Platelet Count 307 K/mm3 (150-450); RBC Distribution Width CV 13.3 % (11.6-14.6); RBC Distribution Width SD 45.4 fl (35.1-43.9); Red Blood Count 4.46 M/mm3 (4.2-5.4); White Blood Count 14.2 K/mm3 (4.4-11.0)
[2021-11-06 20:50] LABS: Anion Gap 7 (5-15); BUN 16 mg/dL (7-18); Calcium,Total 8.9 mg/dL (8.5-10.1); Chloride 107 mmol/L (98-107); Creatinine, Serum 0.76 mg/dL (0.55-1.02); EST Glomerular Filtration Rate 86 mL/min (>60); Est Glom Filt Rate - Afr Amer 104 mL/min (>60); Estimated Creatinine Clearance 84.75 ml/min; Glucose 104 mg/dL (74-106); Potassium 3.9 mmol/L (3.5-5.1); Sodium Level 141 mmol/L (136-145)
[2021-11-06] MEDS: Ketorolac 30 MG/ML Syringe IV (21:21)
[2021-11-06 23:08] VITALS: BP 117/83; PULSE 74; RESP 18; O2SAT 97
[2021-11-06 23:56] VITALS: BP 132/102; PULSE 73; RESP 18; O2SAT 99
== END 2021-11-06 23:58 | disposition home or self-care (01) ==
PROVIDERS: Emergency Provider Emergency Medicine; PCP Family Medicine; Visit Provider Emergency Medicine
DX: L76.33 Postprocedural seroma of skin and subcutaneous tissue following a dermatologic procedure (principal); E78.5 Hyperlipidemia, unspecified; E03.9 Hypothyroidism, unspecified; R10.9 Unspecified abdominal pain; K92.1 Melena; R19.7 Diarrhea, unspecified; R11.2 Nausea with vomiting, unspecified; M19.90 Unspecified osteoarthritis, unspecified site; Z87.891 Personal history of nicotine dependence; Z98.890 Other specified postprocedural states
CPT/HCPCS: 74177; 80048; 85025; 96361; 96374; 99282; J7030; Q9967; A4216

== ENCOUNTER → 2021-11-22 | Outpatient (CLI) | payer MEDICAID, SELFPAY ==
--- NOTE | 2021-11-22 09:32 | US_ITS ---
STUDY: ULTRASOUND BREAST - LEFT REASON FOR EXAM: Female, 46 years old. Recent bilateral breast reduction surgery. Painful palpable lump in the inferior medial aspect of the left breast. TECHNIQUE: Axial and longitudinal images of the LEFT breast were performed with a high resolution ultrasound transducer. # OF IMAGES: 13 COMPARISON: None. FINDINGS: LEFT Breast: The palpable abnormality corresponds to a 1.7 cm x 2.8 cm x 1.3 cm heterogeneous echogenicity density. This most likely represents resolving postoperative hematoma. US/Breast Limited Unilateral IMPRESSION: The palpable abnormality corresponds to a 1.7 cm x 2.8 cm x 1.3 cm heterogeneous echogenicity mass. With the history of recent breast reduction surgery, this may represent resolving hematoma. Clinical and sonographic follow-up recommended. ASSESSMENT CATEGORY: BIRADS Category 3: Probably Benign - Short-Interval Follow-up Suggested. A letter regarding these results will be sent to the patient by the facility within 30 days. Electronically Signed: Mulugeta Waddell MD at 10:33 EDT ,
== END | disposition home or self-care (01) ==
LOC: OPUS 09:26
PROVIDERS: PCP Family Medicine; Referring Provider Family Medicine; Visit Provider Family Medicine
DX: N64.4 Mastodynia (principal)
CPT/HCPCS: 76642

== ENCOUNTER 2021-12-02 12:47 | Emergency (ER) | payer MEDICAID, SELFPAY ==
[2021-12-02 12:48] VITALS: BP 120/105; PULSE 114; RESP 18; TEMP 37.1; O2SAT 98; BMI 32.5
[2021-12-02 12:52] VITALS: BP 147/98; PULSE 95; RESP 16; TEMP 36.4; O2SAT 98
[2021-12-02 12:55] VITALS: BMI 33.0
[2021-12-02 13:32] LABS: Absolute Lymphocyte Count 2.35 X10^3/uL (0.83-4.51); Absolute Neutrophil Count 9.2 X10^3/uL (2.0-7.7); Basophil# 0.04 X10^3/uL; Basophil% 0.3 % (0-1); Eosinophil# 0.11 X10^3/uL; Eosinophils% 0.9 % (0-5); Hematocrit 43.9 % (37-47); Lymphocyte # 2.35 X10^3/ul (0.83-4.51); Lymphocyte % 19.1 % (19-41); Mean Corp Hgb Conc 34.2 g/dL (32-36); Mean Corpuscular Hgb 30.9 pg (27.0-32.0); Mean Corpuscular Volume 90.3 fL (81-99); Mean Platelet Vol. 10.2 fl (6.2-12.0); Monocyte# 0.54 X10^3/uL; Monocyte% 4.4 % (0-10); NRBC Flagged by Analyzer 0 % (0-5); Neutrophil # 9.24 X10^3/uL (2.7-7.7); Neutrophil % 74.9 % (47-70); Platelet Count 294 K/mm3 (150-450); RBC Distribution Width SD 42.5 fl (35.1-43.9); Red Blood Count 4.86 M/mm3 (4.2-5.4); White Blood Count 12.3 K/mm3 (4.4-11.0)
[2021-12-02 13:48] LABS: ALB/GLOB Ratio 0.9 RATIO (0.9-2.4); AST(SGOT) 31 U/L (15-37); Alanine Aminotransfer ALT/SGPT 52 U/L (13-56); Albumin, Serum 3.7 g/dL (3.2-5.0); Alkaline Phosphatase 78 U/L (45-117); Anion Gap 7 (5-15); BUN 11 mg/dL (7-18); BUN/Creat Ratio 15.1 RATIO (10-20); Calcium,Total 9.4 mg/dL (8.5-10.1); Chloride 106 mmol/L (98-107); Creatinine, Serum 0.73 mg/dL (0.55-1.02); EST Glomerular Filtration Rate 91 mL/min (>60); Est Glom Filt Rate - Afr Amer 110 mL/min (>60); Estimated Creatinine Clearance 88.23 ml/min; Glucose 116 mg/dL (74-106); Lipase 260 U/L (73-393); Potassium 3.7 mmol/L (3.5-5.1); Protein, Total 7.7 g/dL (6.4-8.2); Sodium Level 138 mmol/L (136-145)
[2021-12-02] MEDS: Metoclopramide 10 MG/2 ML Vial 5 MG IV (13:50)
[2021-12-02] MEDS: 0.9% Normal Saline 1,000 ML 1000 ML IV (13:50)
[2021-12-02 14:00] LABS: Bacteria 0 SEEN /hpf (None Seen); Mucous, Urine 0 SEEN /hpf (<or=2+); White Blood Cells 0 SEEN /hpf (0-5)
[2021-12-02 14:01] LABS: Color, Urine Yellow (Yellow); Glucose, Dipstick Normal (Normal); Ketone-Dipstick Negative (Negative); Leukocyte Esterase-Dipstick Negative /ul (Negative); Nitrite-Dipstick Negative (Negative); Occult Blood-Urine 10 /ul (Negative); Protein-Dipstick Negative (Negative); Urine Bilirubin Dipstick Negative (Negative); Urine Clarity Sl. Cloudy (Clear); Urine Urobilinogen Normal (Normal); Urine pH 6.5 (5.0 - 8.0)
[2021-12-02 14:10] LABS: Red Blood Cells-Urine 0-5 SEEN /hpf (0-5); Squamous Epithelial Cells - UA 0-5 SEEN /hpf (5-10)
--- NOTE | 2021-12-02 15:01 | EDS_ITS ---
HPI History of Present Illness Chief Complaint: General Illness Narrative Narrative: Patient presents with nausea, vomiting, diarrhea that she has had for the last 1 to 2 days. She states that she was recently put on a water pill by her primary care physician as she has had water retention after an abdominoplasty that she had 2-1/2 months ago. She had a hematoma drained also. She states that after she took her water pill she had nausea and vomiting and then developed diarrhea. She is also on Augmentin for sinus problems. She feels weak, lightheaded but denies any abdominal pain that is new for her or any other new or symptoms. She also endorses generalized weakness. [facility] Medical History 2 vaginal deliveries Anxiety Arthritis Back problem Bone fracture Cardiac arrhythmia, unspecified Current every day smoker GERD (gastroesophageal reflux disease) History of migraine Hyperlipemia Hypothyroidism Polycystic ovarian disease Seasonal allergies Vitamin deficiency Home Medications ibuprofen 200 mg tablet 200 mg PO TID-QID PRN Pain 1-10 Or Fever 10/31/17 [History Last Taken Unknown] alprazolam 1 mg tablet 1 mg PO QDAY PRN Anxiety #30 tabs 09/24/19 [Rx Last Taken Unknown] cholecalciferol (vitamin D3) 125 mcg (5,000 unit) capsule 5,000 unit PO DAILY 06/17/20 [History Last Taken Unknown] levothyroxine 112 mcg tablet 112 mcg PO DAILY 06/17/20 [History Last Taken Unknown] atenolol 25 mg tablet 1 tablet PO DAILY 08/01/20 [History Last Taken Unknown] pen needle, diabetic 32 gauge x 5/32 (BD Ultra-Fine Pennie Pen Needle) #100 ea 11/10/20 [Rx Last Taken Unknown] Ozempic 1 mg/dose (2 mg/1.5 mL) subcutaneous pen injector (semaglutide) 0.5 mg (0.375 mL) subcut QWEEK #3 mL 01/17/21 [Rx Last Taken Unknown] Allergy/AdvReac Type Severity Reaction Status Date / Time ondansetron Allergy Hives Verified 12/02/21 12:57 [From Zofran (as hydrochloride)] Family History Grandfather Cancer Alcohol abuse Father Anxiety Arthritis Myocardial infarction Hypertension Mother Heart disease Hypertension Son Asthma Diabetes Uncle Thyroid disorder Surgical History History of 2 sections History of tubal ligation Social History Smoking Status: Former smoker alcohol intake: never substance use type: does not use what type of physical activity do you participate in: walking frequency: daily ROS ROS ED ROS Narrative Constitutional: No fever, no chills. HEENT: No sore throat. No neck pain. No loss of vision. No rhinorrhea. Cardiovascular: No chest pain. No palpitations. No pedal edema. Respiratory: No cough, no shortness of breath. Abdominal: No abdominal pain. Positive nausea. Positive vomiting. Positive diarrhea. Genitourinary: No dysuria. No hematuria. Musculoskeletal: No myalgias. No arthralgias. Neurologic: No headaches. No dizziness. Mild lightheadedness. Skin: No rash. No change in color. Psychiatric: No depression. No anxiety. EXAM Physical Exam Narrative Exam Narrative: Afebrile. Vital signs noted. HEENT: Normocephalic. Atraumatic. PERRL, EOMI. Neck soft and supple. No point tenderness or step off. Cardiovascular: Regular rate and rhythm with intermittent tachycardia. No murmurs, rubs, or gallops appreciated. Respiratory: No tachypnea. Lungs clear to auscultation bilaterally. Gastrointestinal: Abdomen soft, nontender, with normoactive bowel sounds. No rebound or guarding. Neurological: Awake. Alert. Nonfocal, nonlateralizing. Skin: No rash. Normal color. No pallor. Musculoskeletal: No pedal edema. Full range of motion extremities. Const Vital Signs: 12/02/21 12:48 12/02/21 12:52 12/02/21 12:55 Temperature 98.7 F 97.6 F L Temperature Source Temporal Temporal Pulse Rate 114 H 95 Respiratory Rate 18 16 Respiratory Effort Normal Non-Labored Respiratory Pattern Normal Blood Pressure 120/105 H 147/98 H Blood Pressure Mean 110 114 Pulse Ox 98 98 Oxygen Delivery Method Room Air Room Air MDM MDM MDM Narrative Medical decision making narrative: I do not feel CT imaging is indicated. I do not think that there is a reaccumulation of her hematoma. She has slightly elevated white count of 12.3 which I think may be demargination from her vomiting. Her hemoglobin is normal at 15.0, normal platelet count of 294. CMP is grossly unremarkable with a glucose of 116 and a normal anion gap of 7. She has normal lipase of 260. Urinalysis is negative for ketones or infection. I do not feel any further antibiotics are indicated. I do feel her nausea, vomiting, and diarrhea may be secondary to her use of Augmentin. She has an allergy to Zofran so after her bolus of normal saline, she had also been administered Reglan. Her repeat examination shows no vomiting in the ED and she feels improved. She states that her doctor called her and Phenergan as an antiemetic so she has that available to her at home. I feel she can be discharged safely home with follow-up. Return instructions to the emergency department were reviewed. Disposition is discharged home in stable condition. Lab Data Attestation: I reviewed the patient's lab results. Labs: Laboratory Results - last 24 hr 12/02/21 12/02/21 12/02/21 13:24 13:24 13:44 WBC 12.3 H RBC 4.86 Hgb 15.0 Hct 43.9 MCV 90.3 MCH 30.9 MCHC 34.2 RDW Std Deviation 42.5 RDW Coeff of Rashmi 13.0 Plt Count 294 MPV 10.2 Immature Gran % (Auto) 0.400 Neut % (Auto) 74.9 H Lymph % (Auto) 19.1 [place] % (Auto) 4.4 Eos % (Auto) 0.9 Baso % (Auto) 0.3 Absolute Neuts (auto) 9.2 H Absolute Lymphs (auto) 2.35 Nucleated RBC % 0 Sodium 138 Potassium 3.7 Chloride 106 Carbon Dioxide 25.0 Anion Gap 7 BUN 11 Creatinine 0.73 Estim Creat Clear Calc 88.23 Est GFR (MDRD) Af Amer 110 Est GFR (MDRD) Non-Af 91 BUN/Creatinine Ratio 15.1 Glucose 116 H Calcium 9.4 Total Bilirubin 0.30 AST 31 ALT 52 Alkaline Phosphatase 78 Total Protein 7.7 Albumin 3.7 Globulin 4.0 Albumin/Globulin Ratio 0.9 Lipase 260 Urine Color Yellow Urine Clarity Sl. Cloudy Urine pH 6.5 Ur Specific [place] 1.010 Urine Protein Negative Urine Glucose (UA) Normal Urine Ketones Negative Urine Occult Blood 10 H Urine Nitrite Negative Urine Bilirubin Negative Urine Urobilinogen Normal Ur Leukocyte Esterase Negative Urine RBC 0-5 SEEN Urine WBC 0 SEEN Ur Squamous Epith Cells 0-5 SEEN Urine Bacteria 0 SEEN Urine Mucus 0 SEEN Discharge Plan Triage Chief Complaint: General Illness Other Complaint: Dizziness ED Provider: Yusef Case Dx/Rx/DC Orders Prescriptions: No Action ibuprofen 200 mg tablet 200 mg PO TID-QID PRN (Reason: Pain 1-10 Or Fever) levothyroxine 112 mcg tablet 112 mcg PO DAILY cholecalciferol (vitamin D3) 125 mcg (5,000 unit) capsule 5,000 unit PO DAILY Label Comments: TAKE 1 CAPSULE BY MOUTH DAILY FOR VITAMIN DAILY DEFICIENCY atenolol 25 MG tablet 1 tablet PO DAILY Rx Instructions: TAKE ONE TABLET BY MOUTH EVERY DAY alprazolam 1 mg tablet 1 mg PO QDAY PRN (Reason: Anxiety) Qty: 30 0RF (DME) pen needle, diabetic [BD Ultra-Fine Pennie Pen Needle] 32 gauge x 5/32 needle See Rx Instructions .ROUTE .MEDSUPPLY Qty: 100 3RF Rx Instructions: daily Ozempic 1 mg/dose (2 mg/1.5 mL) pen injector 0.5 mg subcut QWEEK Qty: 3 3RF Primary Care Provider: Ismael De La Garza Referrals: Ismael De La Garza DO [Primary Care Provider] -
[2021-12-02 15:08] VITALS: BP 126/86; PULSE 85; RESP 17; O2SAT 99
== END 2021-12-02 16:00 | disposition home or self-care (01) ==
PROVIDERS: Emergency Provider Emergency Medicine; PCP Family Medicine; Visit Provider Emergency Medicine
DX: R42 Dizziness and giddiness (principal); R11.2 Nausea with vomiting, unspecified; E78.5 Hyperlipidemia, unspecified; R19.7 Diarrhea, unspecified; M19.90 Unspecified osteoarthritis, unspecified site; E03.9 Hypothyroidism, unspecified; Z79.899 Other long term (current) drug therapy; Z87.891 Personal history of nicotine dependence
CPT/HCPCS: 80053; 81001; 83690; 85025; 96361; 96374; 99283; J7030; A4216

== ENCOUNTER 2021-12-24 19:17 | Emergency (ER) | payer MEDICAID, SELFPAY ==
[2021-12-24 19:18] VITALS: PULSE 117; RESP 27; TEMP 35.9; O2SAT 89; BMI 34.0
[2021-12-24 19:22] VITALS: BP 99/62; PULSE 105; RESP 20; O2SAT 93
[2021-12-24] MEDS: 0.9% Normal Saline 1,000 ML 999 ML IV (19:32)
[2021-12-24] MEDS: Famotidine 200 MG/20 ML MDV 20 MG in 0.9% Normal Saline (Pres. free 8 ML 300 MG IV (19:49)
--- NOTE | 2021-12-24 19:54 | EDS_ITS ---
HPI History of Present Illness Chief Complaint: Allergic Reaction Informant: patient Narrative Narrative: Patient presents with allergic reaction. She was feeling fine. Near the right shoulder area. Very quickly she started to get lightheaded nauseated short of breath and break out in a rash. EMS arrived. They gave her 2 doses of epi. They did give her 125 of Solu-Medrol and 50 mg of Benadryl. This was verified by the nurse who talked to the medics. She is doing much better now. She also developed some abdominal pain and cramping that started only after this happened. She does not have a history of anaphylaxis to any compounds in the past. [facility] Medical History 2 vaginal deliveries Anxiety Arthritis Back problem Bone fracture Cardiac arrhythmia, unspecified Current every day smoker GERD (gastroesophageal reflux disease) History of migraine Hyperlipemia Hypothyroidism Polycystic ovarian disease Seasonal allergies Vitamin deficiency Home Medications ibuprofen 200 mg tablet 200 mg PO TID-QID PRN Pain 1-10 Or Fever 10/31/17 [History Last Taken Unknown] alprazolam 1 mg tablet 1 mg PO QDAY PRN Anxiety #30 tabs 09/24/19 [Rx Last Taken Unknown] cholecalciferol (vitamin D3) 125 mcg (5,000 unit) capsule 5,000 unit PO DAILY 06/17/20 [History Last Taken Unknown] levothyroxine 112 mcg tablet 112 mcg PO DAILY 06/17/20 [History Last Taken Unknown] atenolol 25 mg tablet 1 tablet PO DAILY 08/01/20 [History Last Taken Unknown] pen needle, diabetic 32 gauge x 5/32 (BD Ultra-Fine Pennie Pen Needle) #100 ea 11/10/20 [Rx Last Taken Unknown] Ozempic 1 mg/dose (2 mg/1.5 mL) subcutaneous pen injector (semaglutide) 0.5 mg (0.375 mL) subcut QWEEK #3 mL 01/17/21 [Rx Last Taken Unknown] epinephrine 0.3 mg/0.3 mL injection, auto-injector (EpiPen 2-Magdi) 0.3 mg (0.3 mL) IM Q4H PRN anaphylaxis #2 ea 12/24/21 [Rx Last Taken Unknown] famotidine 20 mg tablet 20 mg PO BID 5 days #10 tabs 12/24/21 [Rx Last Taken Unknown] loratadine 10 mg tablet (Claritin) 10 mg PO DAILY #7 tabs 12/24/21 [Rx Last Taken Unknown] prednisone 20 mg tablet 60 mg PO DAILY #15 tabs 12/24/21 [Rx Last Taken Unknown] Allergy/AdvReac Type Severity Reaction Status Date / Time bee pollen Allergy Hives Verified 12/24/21 19:18 ondansetron Allergy Hives Verified 12/24/21 19:18 [From Zofran (as hydrochloride)] Family History Grandfather Cancer Alcohol abuse Father Anxiety Arthritis Myocardial infarction Hypertension Mother Heart disease Hypertension Son Asthma Diabetes Uncle Thyroid disorder Surgical History History of 2 sections History of tubal ligation Social History Smoking Status: Former smoker alcohol intake: never substance use type: does not use what type of physical activity do you participate in: walking frequency: daily ROS ROS ED Constitutional Constitutional ED: Denies chills, fever(s) or sweats Eyes Eyes: Denies change in vision ENT ENT ED: Reports other Details: Patient felt as though her lips or tongue were starting to swell before but they feel normal at this time. Cardiovascular Cardiovascular: Reports racing heartbeat; Denies chest pain Respiratory/Chest Respiratory/Chest: Reports dyspnea Gastrointestinal Gastrointestinal: Reports abdominal pain and nausea; Denies diarrhea or vomiting Genitourinary Genitourinary ED: Denies dysuria Musculoskeletal Musculoskeletal: Denies arthralgias or myalgias Integumentary Reports rash Neurologic Neurologic: Denies headache(s) Endocrine Endocrinology: Denies polydipsia or polyuria Hematologic/Lymphatic Hematologic/Lymphatic: Denies easy bleeding or easy bruising Allergic/Immunologic Allergic/Immunologic ED: Reports urticaria EXAM Physical Exam Const Vital Signs: 12/24/21 19:18 12/24/21 19:22 12/24/21 20:38 Temperature 96.6 F L Temperature Source Temporal Pulse Rate 117 H 105 H 79 Respiratory Rate 27 H 20 H 20 H Blood Pressure 99/62 148/84 H Blood Pressure Mean 74 105 Pulse Ox 89 93 97 Oxygen Delivery Method Room Air Nasal Cannula Room Air Oxygen Flow Rate (L/min) 4 12/24/21 21:12 12/24/21 22:16 Temperature Temperature Source Pulse Rate 96 95 Respiratory Rate 16 16 Blood Pressure 140/102 H 120/72 Blood Pressure Mean 114 88 Pulse Ox 98 93 Oxygen Delivery Method Room Air Room Air Oxygen Flow Rate (L/min) Positive well nourished Constitutional Narrative: Patient does have some diffuse erythema. General Appearance ED: NAD HEENT Reports moist mucous membranes HEENT Narrative: No intraoral swelling. Voice is normal now. Patient is actually talk to me just fine at this time. Eyes EOMs intact bilaterally Neck no lymphadenopathy and no JVD Neck Narrative: No stridor. Voice is not coarse or hoarse. Chest Wall inspection of chest normal Resp normal respiratory effort and clear to auscultation bilaterally Auscultation: Negative for wheezes Cardio regular rhythm Rate: tachycardic GI normal to inspection, nondistended, normoactive bowel sounds and non-tender GI Narrative: Patient complains of abdominal cramping but is not really tender. Well-healed recent abdominoplasty that was done in September. Back/Spine no CVA tenderness Extremity Extremity Narrative: Patient does have some mild diffuse erythema to her extremities. It is hard to say if this is from being hot out in the sun or is hives. No vesicles. Neuro oriented x3 Psych mental status grossly normal Skin Skin Narrative: See above. MDM MDM MDM Narrative Medical decision making narrative: There were evidently concerns if this was allergic reaction or possible other causes. There was a report that there is also may be a history of drug use. We will check a urine tox also. Although allergic reaction does explain her symptoms. The only issue is I do not see the actual sting site. Patient is doing markedly better. Her blood pressure is good her heart rate is down her respiratory rate is down her oxygen level is normal at 100% but she still on 2 L. We will continue to wean her. She is not having trouble breathing. There is less redness. There is marked improvement that has continued. But she is still having a lot of abdominal pain. She isolates it toward the left lower quadrant. She now states that she has been having pain since her surgery. She has what seems to be either a seroma or hematoma in the left side of her lower abdominal incision. She has similar area up in her left breast but that is not hurting. She states this area in the left lower quadrant does not hurt all the time but she has had problems with it. They are thinking of doing repeat surgery for this. But it really increased pain markedly with this allergic reaction. I will get her some pain meds now that things have calm down here. We will use fentanyl to decrease chance of histamine release. I will do a scan of the abdomen. I will avoid IV contrast again to avoid any other compounds that may worsen an allergic reaction. Her exam shows a well- healed incision but there is a firm area about 7 cm around on the left side. She states this firmness is not new. It does not feel like a hernia. Patient's white count is high however this very well could be from demargination and epinephrine. Electrolytes show no marked abnormalities. Glucose was high at 240. But patient is on Ozempic and did just get epinephrine which can cause this. Urine is overall unimpressive. Chest x-ray is normal. CT showed seroma/hematoma in the incisions. These are things and can be followed as an outpatient. We discussed all of them. She now does tell me that she had the area in the left lower abdominal incision drained once. She was supposed to have it drained again. I talked about epinephrine and auto dosing. We talked about the importance of continuing the other meds for several days. We have watched her for over 3 hours and she has made continual improvement. Lab Data Attestation: I reviewed the patient's lab results. Labs: Laboratory Results - last 24 hr 12/24/21 12/24/21 12/24/21 20:14 20:14 21:05 WBC 19.9 H RBC 4.90 Hgb 15.1 H Hct 46.2 MCV 94.3 MCH 30.8 MCHC 32.7 RDW Std Deviation 43.8 RDW Coeff of Rashmi 12.7 Plt Count 302 MPV 10.5 Immature Gran % (Auto) 1.200 H Neut % (Auto) 66.1 Lymph % (Auto) 29.2 [place] % (Auto) 2.6 Eos % (Auto) 0.6 Baso % (Auto) 0.3 Absolute Neuts (auto) 13.2 H Absolute Lymphs (auto) 5.82 H Nucleated RBC % 0 Differential Comment SEE COMMENT Platelet Estimate ADEQUATE RBC Morphology N CHROM Anisocytosis RARE Macrocytosis RARE Sodium 141 Potassium 3.0 L Chloride 110 H Carbon Dioxide 22.0 Anion Gap 9 BUN 15 Creatinine 0.91 Estim Creat Clear Calc 70.78 Est GFR (MDRD) Af Amer 84 Est GFR (MDRD) Non-Af 70 BUN/Creatinine Ratio 16.4 Glucose 243 H Calcium 9.1 Urine Color Cancelled Urine Clarity Cancelled Urine pH Cancelled Ur Specific [place] Cancelled U Specif Grav (Refrac) Cancelled Urine Protein Cancelled Urine Glucose (UA) Cancelled Urine Ketones Cancelled Urine Occult Blood Cancelled Urine Nitrite Cancelled Urine Bilirubin Cancelled Urine Urobilinogen Cancelled Ur Leukocyte Esterase Cancelled Urine RBC Cancelled Urine WBC Cancelled Ur Squamous Epith Cells Cancelled Ur Transition Epith Cell Cancelled Ur Renal Epithelial Cell Cancelled Calcium Oxalate Crystal Cancelled Uric Acid Crystals Cancelled Triple Phos Crystals Cancelled Other Crystals Cancelled Amorphous Sediment Cancelled Urine Bacteria Cancelled Hyaline Casts Cancelled Fine Granular Casts Cancelled Coarse Granular Casts Cancelled Waxy Casts Cancelled RBC Casts Cancelled WBC Casts Cancelled Urine Mucus Cancelled Urine Trichomonas Cancelled Urine Yeast Cancelled Urine Opiates Screen Urine Methadone Screen Ur Barbiturates Screen Ur Phencyclidine Scrn Ur Amphetamines Screen MDMA (Ecstasy) Screen U Benzodiazepines Scrn Urine Cocaine Screen U Cannabinoids Screen Ur Drug Screen Comment 12/24/21 12/24/21 21:05 21:11 WBC RBC Hgb Hct MCV MCH MCHC RDW Std Deviation RDW Coeff of Rashmi Plt Count MPV Immature Gran % (Auto) Neut % (Auto) Lymph % (Auto) [place] % (Auto) Eos % (Auto) Baso % (Auto) Absolute Neuts (auto) Absolute Lymphs (auto) Nucleated RBC % Differential Comment Platelet Estimate RBC Morphology Anisocytosis Macrocytosis Sodium Potassium Chloride Carbon Dioxide Anion Gap BUN Creatinine Estim Creat Clear Calc Est GFR (MDRD) Af Amer Est GFR (MDRD) Non-Af BUN/Creatinine Ratio Glucose Calcium Urine Color Straw Urine Clarity Clear Urine pH 6.0 Ur Specific [place] 1.020 U Specif Grav (Refrac) Urine Protein 15 H Urine Glucose (UA) 100 H Urine Ketones 5 H Urine Occult Blood Negative Urine Nitrite Negative Urine Bilirubin Negative Urine Urobilinogen Normal Ur Leukocyte Esterase Negative Urine RBC 0 SEEN Urine WBC 0 SEEN Ur Squamous Epith Cells 0 SEEN Ur Transition Epith Cell Ur Renal Epithelial Cell Calcium Oxalate Crystal Uric Acid Crystals Triple Phos Crystals Other Crystals Amorphous Sediment Urine Bacteria 0 SEEN Hyaline Casts Fine Granular Casts Coarse Granular Casts Waxy Casts RBC Casts WBC Casts Urine Mucus 0 SEEN Urine Trichomonas Urine Yeast Urine Opiates Screen NEGATIVE Urine Methadone Screen NEGATIVE Ur Barbiturates Screen NEGATIVE Ur Phencyclidine Scrn NEGATIVE Ur Amphetamines Screen NEGATIVE MDMA (Ecstasy) Screen NEGATIVE U Benzodiazepines Scrn NEGATIVE Urine Cocaine Screen NEGATIVE U Cannabinoids Screen NEGATIVE Ur Drug Screen Comment Radiography Diagnostic Testing: Clinical Impression(s) from Imaging Studies Chest X-Ray 12/24/21 20:24 IMPRESSION: Normal x-ray examination of the chest. Electronically Signed: All Keith MD at 21:24 EDT , Abdomen/Pelvis CT 12/24/21 21:01 IMPRESSION: 1. 5.9 x 3.3 cm circumscribed hypodense subpleural lesion along the left anterolateral abdominal wall. Differential diagnosis includes abscess, seroma, older hematoma, and lymphatic collection. 2. Subpleural nodular focus along the anteromedial aspect of the right lung base measuring 1.9 x 1.1 cm. Consider PET/CT for further evaluation as tumor is not excluded. 3. Couple of subpleural right middle lobe solid-appearing noncalcified nodules measuring up to 5 mm. Attention on follow-up chest CT. Electronically Signed: Rik Stover MD at 22:17 EDT , Critical Care Time Critical Care Time: Yes Critical care time (excluding procedures): 30-74 minutes, Discussing w/Patient &/or Family/[employer] Administrator, Discussing w/Consultants, Arranging Admission or Transfer, Performing Direct Patient Care at Bedside and - (Patient arrived with hypoxia tachycardia and borderline blood pressure along with decreased alertne ss. She progressively improved. We have adjusted medications. We have done multiple repeat evaluations. With anaphylaxis ask she was at high risk for decompensation.) Discharge Plan Triage Chief Complaint: Allergic Reaction ED Provider: Romulo Joe Dx/Rx/DC Orders Clinical Impression: Anaphylaxis due to hymenoptera venom, Abdominal pain Instructions: ED Anaphylaxis Prescriptions: New famotidine [famotidine] 20 mg tablet 20 mg PO BID 5 Days Qty: 10 0RF prednisone 20 mg tablet 60 mg PO DAILY Qty: 15 0RF loratadine [Claritin] 10 mg tablet 10 mg PO DAILY Qty: 7 0RF epinephrine [EpiPen 2-Magdi] 0.3 mg/0.3 mL auto-injector 0.3 mg IM Q4H PRN (Reason: anaphylaxis) Qty: 2 0RF No Action ibuprofen 200 mg tablet 200 mg PO TID-QID PRN (Reason: Pain 1-10 Or Fever) levothyroxine 112 mcg tablet 112 mcg PO DAILY cholecalciferol (vitamin D3) 125 mcg (5,000 unit) capsule 5,000 unit PO DAILY Label Comments: TAKE 1 CAPSULE BY MOUTH DAILY FOR VITAMIN DAILY DEFICIENCY atenolol 25 MG tablet 1 tablet PO DAILY Rx Instructions: TAKE ONE TABLET BY MOUTH EVERY DAY alprazolam 1 mg tablet 1 mg PO QDAY PRN (Reason: Anxiety) Qty: 30 0RF (DME) pen needle, diabetic [BD Ultra-Fine Pennie Pen Needle] 32 gauge x 5/32 needle See Rx Instructions .ROUTE .MEDSUPPLY Qty: 100 3RF Rx Instructions: daily Ozempic 1 mg/dose (2 mg/1.5 mL) pen injector 0.5 mg subcut QWEEK Qty: 3 3RF Primary Care Provider: Ismael De La Garza Referrals: Ismael De La Garza DO [Primary Care Provider] - 1-2 Days if not improving Activity Restrictions/Additional Instructions: Follow-up with your surgeon for the abdominal pain issues. Disposition Disposition: Home, Self Care
--- NOTE | 2021-12-24 19:57 | EKG12_ITS ---
Test Reason : DYSRYTHMIA Blood Pressure : / mmHG Vent. Rate : 081 BPM Atrial Rate : 081 BPM P-R Int : 184 ms QRS Dur : 106 ms QT Int : 394 ms P-R-T Axes : 069 090 027 degrees QTc Int : 457 ms Normal sinus rhythm Rightward axis Borderline ECG Confirmed by CAITY VASQUEZ, PAMELA ([id number]), continuity editor DAYTON ANDINO ([id number]) on 12/26/2021 11:28:05 AM Referred By: LOBO Confirmed By:PAMELA CAROLINA MD
--- NOTE | 2021-12-24 20:24 | RAD_ITS ---
STUDY: X-RAY CHEST REASON FOR EXAM: Female, 46 years old. SOB TECHNIQUE: Single AP portable view of the chest. COMPARISON: 07/24/2018 FINDINGS: The lungs are clear and expanded. There is no demonstrated pleural abnormality. Normal size heart. Normal mediastinum and morgan. Normal visualized pulmonary arteries. Normal visualized aortic arch and descending thoracic aorta. Normal visualized thoracic spine. Normal visualized ribs, clavicles, and shoulders. There is no demonstrated abnormality of the visualized soft tissue structures of the upper abdomen. RAD/Chest 1 View (Portable) IMPRESSION: Normal x-ray examination of the chest. Electronically Signed: All Keith MD at 21:24 EDT ,
[2021-12-24 20:33] LABS: Absolute Lymphocyte Count 5.82 X10^3/uL (0.83-4.51); Absolute Neutrophil Count 13.2 X10^3/uL (2.0-7.7); Basophil# 0.05 X10^3/uL; Basophil% 0.3 % (0-1); Eosinophil# 0.12 X10^3/uL; Eosinophils% 0.6 % (0-5); Hematocrit 46.2 % (37-47); Hemoglobin 15.1 g/dL (12.0-15.0); Lymphocyte # 5.82 X10^3/ul (0.83-4.51); Lymphocyte % 29.2 % (19-41); Mean Corp Hgb Conc 32.7 g/dL (32-36); Mean Corpuscular Hgb 30.8 pg (27.0-32.0); Mean Corpuscular Volume 94.3 fL (81-99); Mean Platelet Vol. 10.5 fl (6.2-12.0); Monocyte# 0.52 X10^3/uL; Monocyte% 2.6 % (0-10); NRBC Flagged by Analyzer 0 % (0-5); Neutrophil # 13.18 X10^3/uL (2.7-7.7); Neutrophil % 66.1 % (47-70); POSITIVE DIFFERENTIAL YES; Platelet Count 302 K/mm3 (150-450); RBC Distribution Width CV 12.7 % (11.6-14.6); RBC Distribution Width SD 43.8 fl (35.1-43.9); White Blood Count 19.9 K/mm3 (4.4-11.0)
[2021-12-24 20:36] LABS: Differential Indicated SCAN CRITERIA MET
[2021-12-24 20:37] LABS: Anion Gap 9 (5-15); BUN 15 mg/dL (7-18); BUN/Creat Ratio 16.4 RATIO (10-20); Calcium,Total 9.1 mg/dL (8.5-10.1); Chloride 110 mmol/L (98-107); Creatinine, Serum 0.91 mg/dL (0.55-1.02); EST Glomerular Filtration Rate 70 mL/min (>60); Est Glom Filt Rate - Afr Amer 84 mL/min (>60); Estimated Creatinine Clearance 70.78 ml/min; Glucose 243 mg/dL (74-106); Sodium Level 141 mmol/L (136-145)
[2021-12-24 20:38] VITALS: BP 148/84; PULSE 79; RESP 20; O2SAT 97
[2021-12-24 21:01] LABS: Anisocytosis RARE; Macrocytosis RARE; Platelet Estimate ADEQUATE (ADEQ); Red Cell Morphology N CHROM NORMAL (NORM C&C)
--- NOTE | 2021-12-24 21:01 | CT_ITS ---
EXAM: CT ABDOMEN AND PELVIS WITHOUT INTRAVENOUS CONTRAST CLINICAL INDICATION: LLQ pain TECHNIQUE: Helically acquired images were obtained of the abdomen and pelvis without intravenous contrast. CTDIvol = ( 16.61 ) mGy, DLP = ( 817.29 ) mGycm This CT exam was performed using one or more of the following dose reduction techniques: automated exposure control, adjustment of the mA and/or kV according to patient size, and/or use of iterative reconstruction technique. This report was created using Pryv report generation technology. COMPARISON: 11/06/2021 FINDINGS: LOWER THORAX: Couple of subpleural right middle lobe solid-appearing noncalcified nodules measuring up to 5 mm. Attention on follow-up chest CT. Subpleural nodular focus along the anteromedial aspect of the right lung base measuring 1.9 x 1.1 cm. Consider PET/CT for further evaluation as tumor is not excluded. No cardiomegaly. No significant pericardial effusion. ABDOMEN: LIVER: Hepatic steatosis. Homogeneous. GALLBLADDER AND BILE DUCTS: Unremarkable. No calcified gallstones. No gallbladder distention or wall edema. No intra- or extrahepatic biliary ductal dilation. PANCREAS: Unremarkable. No focal cystic mass. SPLEEN: Unremarkable. Normal size without focal cystic or solid mass. ADRENALS: Unremarkable. No nodules. KIDNEYS AND URETERS: Unremarkable. Normal renal size and position. No hydronephrosis. STOMACH AND BOWEL: Distal colonic diverticulosis without diverticulitis. No colitis. No bowel obstruction. PELVIS: APPENDIX: No evidence of acute appendicitis. BLADDER: Unremarkable. REPRODUCTIVE: Unremarkable as visualized. No mass. ABDOMEN and PELVIS: INTRAPERITONEAL SPACE: No free air. No free fluid. BONES/JOINTS: Unremarkable. No suspicious lytic or blastic abnormality. SOFT TISSUES: 5.9 x 3.3 cm circumscribed hypodense lesion along the left anterolateral abdominal wall. Differential diagnosis includes abscess, seroma, older hematoma, and lymphatic collection. Nonspecific simultaneous stranding involving the lower anterior abdominal wall. Correlate clinically to exclude cellulitis. No discrete abdominal or pelvic wall hernia. VASCULATURE: Unremarkable. Abdominal aorta is non-dilated. LYMPH NODES: Unremarkable. No enlarged lymph nodes. CT/Abdomen/Pelvis without Cont IMPRESSION: 1. 5.9 x 3.3 cm circumscribed hypodense subpleural lesion along the left anterolateral abdominal wall. Differential diagnosis includes abscess, seroma, older hematoma, and lymphatic collection. 2. Subpleural nodular focus along the anteromedial aspect of the right lung base measuring 1.9 x 1.1 cm. Consider PET/CT for further evaluation as tumor is not excluded. 3. Couple of subpleural right middle lobe solid-appearing noncalcified nodules measuring up to 5 mm. Attention on follow-up chest CT. Electronically Signed: Rik Stover MD at 22:17 EDT ,
[2021-12-24 21:12] VITALS: BP 140/102; PULSE 96; RESP 16; O2SAT 98
[2021-12-24] MEDS: proMETHazine 25 MG/ML Syringe IM (21:13)
[2021-12-24] MEDS: fentaNYL 100 MCG/2 ML Ampul 25 MCG IV (21:13)
[2021-12-24 21:23] LABS: Bacteria 0 SEEN /hpf (None Seen); Color, Urine Straw (Yellow); Glucose, Dipstick 100 mg/dl (Normal); Ketone-Dipstick 5 mg/dl (Negative); Leukocyte Esterase-Dipstick Negative /ul (Negative); Mucous, Urine 0 SEEN /hpf (<or=2+); Nitrite-Dipstick Negative (Negative); Occult Blood-Urine Negative /ul (Negative); Protein-Dipstick 15 mg/dl (Negative); Red Blood Cells-Urine 0 SEEN /hpf (0-5); Squamous Epithelial Cells - UA 0 SEEN /hpf (5-10); Urine Bilirubin Dipstick Negative (Negative); Urine Clarity Clear (Clear); Urine Urobilinogen Normal (Normal); White Blood Cells 0 SEEN /hpf (0-5)
[2021-12-24 21:42] LABS: Amphetamine Urine VISTA NEGATIVE (<1000 ng/mL); Barbiturate Urine VISTA NEGATIVE (< 200 ng/mL); Benzodiazepine Urine VISTA NEGATIVE (< 200 ng/mL); Cocaine Urine VISTA NEGATIVE (< 300 ng/mL); Ecstacy Urine VISTA NEGATIVE (< 500 ng/mL); Methadone Urine VISTA NEGATIVE (< 300 ng/mL); PCP Urine VISTA NEGATIVE (< 25 ng/mL); THC Urine VISTA NEGATIVE (< 50 ng/mL); Vista UDS pH Range 6
[2021-12-24 22:16] VITALS: BP 120/72; PULSE 95; RESP 16; O2SAT 93
[2021-12-24 22:48] VITALS: BP 110/84; PULSE 74; RESP 16; O2SAT 98
== END 2021-12-24 22:50 | disposition home or self-care (01) ==
PROVIDERS: Emergency Provider Emergency Medicine; PCP Family Medicine; Visit Provider Emergency Medicine
DX: T88.6XXA Anaphylactic reaction due to adverse effect of correct drug or medicament properly administered, initial encounter (principal); R10.9 Unspecified abdominal pain; E78.5 Hyperlipidemia, unspecified; E03.9 Hypothyroidism, unspecified; Z87.891 Personal history of nicotine dependence; Z79.52 Long term (current) use of systemic steroids; Z79.899 Other long term (current) drug therapy; T50.Z95A Adverse effect of other vaccines and biological substances, initial encounter
CPT/HCPCS: 71045; 74176; 80048; 80307; 81001; 85025; 93005; 96361; 96374; 96375; 99285; J7030; A4216; J3490

== ENCOUNTER → 2022-01-04 | Outpatient (CLI) | payer MEDICAID, SELFPAY ==
--- NOTE | 2022-01-04 09:30 | PET_ITS ---
PROCEDURE: WHOLE BODY PET/CT SCAN, MID SKULL TO MID THIGH REASON FOR EXAM: Solitary pulmonary nodule incidentally detected on abdomen/pelvis CT 12/24/2021 COMPARISON EXAMINATION: None. TECHNIQUE: Following the intravenous administration of 12.83 mCi of F-18 FDG, multiplanar imaging acquisitions of the neck, chest, abdomen/pelvis to the mid thigh, obtained at 1 hour post radiopharmaceutical administration. Interpretation is with co-registeration of similar anatomic distribution of CT. Findings: Normal and physiologic distribution of radioisotope identified in the expected intensity of the hepatic and splenic parenchyma, urinary tract and gastrointestinal structures. There is gross anatomic distribution of the intracranial contents. INDEX LESION SIZE SUV INTERPRETATION: 1. None CT portion of the exam: Triangular nodular density of the medial right middle lobe correlating abnormality on prior CT does not demonstrate any abnormal FDG activity. The other middle lobe nodules described on prior is dated and are stable in size (although below size limitations of PET scan). There is no demonstrated pleural abnormality. Normal heart and pericardium. Mildly enlarged lymph node at the pretracheal mediastinum measures 9.6 mm without associated FDG activity. Normal hilar regions. Normal unenhanced pulmonary arteries. Normal aorta arch and descending thoracic aorta. There is decreased attenuation of the liver consistent with steatosis. Normal gallbladder and extrahepatic biliary system. Normal spleen. Normal pancreas. Normal bilateral adrenal glands. Normal right kidney. Normal left kidney. Normal visualized stomach. Normal small intestine. There are multiple colonic diverticula consistent with diverticulosis. The appendix is visualized and appears normal. Mild scattered atherosclerosis. Normal inferior vena cava. Normal urinary bladder. Operative changes of the anterior abdominal wall with focal fluid collection of the left lower anterior abdominal wall, mildly smaller since prior CT. Likely represents a resolving hematoma/seroma. Degenerative changes of the lumbar spine. PET/PET/CT Tumor Base -Thigh Init IMPRESSION: 1. NEGATIVE EXAMINATION. No scintigraphic evidence of viable neoplasm. 2. Right middle lobe nodules do not meet criteria for viable neoplasm, although some are below size limitations of PET scan. Recommend appropriate imaging follow up according to Fleischner Society recommendations. 3. Operative changes of the lower anterior abdominal wall with decreasing focal fluid collection (likely resolving seroma or hematoma). 4. Chronic changes, as detailed above. Electronically Signed: Arthur Calvin MD ([place]) at 15:36 EDT ,
== END | disposition home or self-care (01) ==
LOC: ONC 09:16
PROVIDERS: PCP Family Medicine; Referring Provider Family Medicine; Visit Provider Family Medicine
DX: R91.1 Solitary pulmonary nodule (principal)
CPT/HCPCS: 78815; A9552

== ENCOUNTER → 2022-03-02 | Outpatient (CLI) | payer MEDICAID, SELFPAY ==
--- NOTE | 2022-03-02 07:58 | CT_ITS ---
STUDY: CT PELVIS WITHOUT CONTRAST REASON FOR EXAM: Female, 46 years old. POST OP seroma. Possible percutaneous drainage. RADIATION DOSAGE (If Supplied By Facility): CTDIvol = ( 23.72 ) mGy, DLP = ( 630.49 ) mGycm TECHNIQUE: Transaxial imaging of the pelvis was performed with oral contrast, and without intravenous administration of contrast material. Individualized dose optimization techniques were used for this CT. COMPARISON: None. FINDINGS: Normal urinary bladder. Normal visualized small intestine. Normal visualized colon. There is no pelvic fluid. There is no pelvic mass lesion or lymphadenopathy. Normal visualized pelvic arteries. There is a 2.7 cm by 1.5 cm well-circumscribed fluid collection in the deep subcutaneous tissue overlying the left lower anterior abdominal wall. It is also evidence of diffuse increased markings within the subcutaneous fat suggestive of a postoperative changes. No significant fluid collection is seen for percutaneous drainage. Normal osseous structures. CT/Pelvis without IV Contrast IMPRESSION: No significant fluid collection is seen for percutaneous drainage. Electronically Signed: Mulugeta Waddell MD at 10:49 EST ,
[2022-03-02 08:09] LABS: Prothrombin Time (Protime)PT. 12.4 SECONDS (11.7-14.9)
[2022-03-02 08:10] VITALS: BP 124/91; PULSE 74; RESP 12; O2SAT 98
[2022-03-02 08:10] LABS: Partial Thromboplast Time 27.9 Seconds (24.1-36.2)
[2022-03-02 08:15] VITALS: BP 124/91; PULSE 74; RESP 12; TEMP 36.8; O2SAT 98; BMI 33.0
[2022-03-02 09:00] VITALS: BP 110/73; BP 114/69; PULSE 70; RESP 16; O2SAT 98
== END | disposition home or self-care (01) ==
PROVIDERS: PCP Family Medicine
DX: L76.32 Postprocedural hematoma of skin and subcutaneous tissue following other procedure (principal); R18.8 Other ascites
CPT/HCPCS: 36415; 72192; 85610; 85730; J7050

== ENCOUNTER → 2022-05-12 | Outpatient (CLI) | payer MEDICAID, SELFPAY ==
[2022-05-12 10:11] LABS: Vitamin D,25 Hydroxy 50.8 ng/mL
[2022-05-12 10:46] LABS: Thyroid Stim Hormone (TSH) 6.55 uIU/mL (0.358-3.74)
== END | disposition home or self-care (01) ==
PROVIDERS: PCP Family Medicine; Referring Provider Family Medicine; Visit Provider Family Medicine
DX: E55.9 Vitamin D deficiency, unspecified (principal); E03.9 Hypothyroidism, unspecified; Z87.898 Personal history of other specified conditions
CPT/HCPCS: 36415; 82306; 84443

== ENCOUNTER 2022-08-01 07:30 | Outpatient (RCR) | payer MEDICAID, SELFPAY ==
--- NOTE | 2022-07-28 07:53 | HP.PTEVAL ---
Patient's Visit Information CHRIS STRATTON is a 47 year old F referred to Physical Therapy by Dr. Ismael De La Garza DO with a diagnosis of DDD. Date of Evaluation: 07/28/22 Physical Therapist: Lawson Cantrell, BILL, OCS, CSCS - Visit Plan Frequency: 3x /Week Duration: 4-6 Weeks Plan: 3x/week for 3-6 weeks for. 1. Ensure LB ROM going well, please teach gastroc stretch for HEP. 2. progress to mat based core sdtrength and yoga stretches to HEP. 3. Also to gym for general core , LE , postural strength to I at [employer]. Quick rollout to L paraspinals and gluts prior to stretches. Body mechanics - Subjective Chronic back pain. Had breast reduction and abdominoplasty September last year and is swollen from that and gaining weight , also has thyroid problems and medicated. Had DDD. Back pain present for > 1 yr, was OK prior to that. says she had therapy long time ago for this though. 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 LBP is lower left and middle, and has some intermittent pain down legs 3x/week, not sure what causes it. Not many days that she feels good but happens. Sleep is interrupted in that she wakes up every two hours most nights and keeps her up. Avoids some work like mowing some yards due to this at work,. Basic ADLs are getting done and not a problem. Hobbies:none...spends time working and sleeping or movies. Exercises; not regularly, been busy. Cardio when she goes. - Pain LBP Pain Intensity (Out of 10): 5 Pain Intensity Range: 0, 8 Comment: sitting, mowing, weedeating worse - Objective Walks I with short steps into PT I. Trasnfers I, sits cross legged. Steps I and reciprocal. Tender to touch with knots in L>R paraspinals lumbar and into upper gluts. LB AROM ext slightly limited and pulls in front over abdominal incision, flexion full andwithout pain, SB min limited and without pain. LE aROM WFL hips, knees and ankles except gastroc max tight at -2 DF B. - slump, - SLR,. reflexes 2/3 patella and achilles. Sensation LE WNL to gross light touch. Strength LE 4/5 without myotomal problems. core strength 3/5 ext and flexion. - Balance/Special Test Scores Oswestry Low Back Score: 28 - Goals Goal 1:: Full L/S AROM without pain Goal Time Frame: 4-6 Weeks Goal 2:: Pt feel pain 0-2/10 at all times, 75% better and manageable Goal Time Frame: 4-6 Weeks Goal 3:: I appropriate HEP for ROM, stretching and strength core, [employer] program for general Goal Time Frame: 4-6 Weeks Goal 4:: oswestry score 7 or better Goal Time Frame: 4-6 Weeks Goal 5:: Work without increased pain. Goal Time Frame: 4-6 Weeks - Rehabilitation Potential Physical Therapy Diagnosis: LBP from DDD and sedentarism/weakness after surgery. Rehabilitation Potential: Fair - Anticipated Interventions Patient/Client Instruction: Educate patient on: Condition, Plan of Care For the Purpose of:: To decrease pain, To increase ROM, To improve nutrient delivery to tissue, To improve muscle performance and motor function, To improve ability of physical actions for home/community/work/leisure Therapeutic Exercise to Include: Strength training, Postural training, Flexibilty training, Passive ROM, Active ROM, Dynamic Lumbar Stabilization For the Purpose of:: To decrease pain, To improve nutrient delivery to tissue, To improve muscle performance and motor function, To increase tolerance to activity/condition/position Manual Therapy Techniques to Include: Mobilization, Passive ROM, Soft tissue mobilization For the Purpose of:: To decrease pain, To increase ROM, To improve nutrient delivery to tissue Thank you for the opportunity to evaluate your patient. For Medicare and Medicare HMO plans, please review the plan of care and approve it. It will need to be FAXED BACK to us at [phone] for Medicare purposes. For Medicare only, by signing this I certify the plan of care. Please let me know if there are questions or concerns regarding this plan of care. Physician Signature: Date:
--- NOTE | 2022-08-07 07:08 | HP.PT.NRP ---
CHRIS STRATTON was seen in my office for initial evaluation on 07/28/22. The following Plan of Care was established for this patient: Initial Frequency: 3x /Week Initial Duration: 4-6 Weeks Patient/Client Instruction: Educate patient on: Condition, Plan of Care For the Purpose of:: To decrease pain, To increase ROM, To improve nutrient delivery to tissue, To improve muscle performance and motor function, To improve ability of physical actions for home/community/work/leisure Therapeutic Exercise to Include: Strength training, Postural training, Flexibilty training, Passive ROM, Active ROM, Dynamic Lumbar Stabilization For the Purpose of:: To decrease pain, To improve nutrient delivery to tissue, To improve muscle performance and motor function, To increase tolerance to activity/condition/position Manual Therapy Techniques to Include: Mobilization, Passive ROM, Soft tissue mobilization For the Purpose of:: To decrease pain, To increase ROM, To improve nutrient delivery to tissue This patient was last seen in our office 08/01/22. Pertinent comments regarding their Physical therapy will appear below: Pt see for initial evaluation and one other visit of POC and then she called to cancel all visits stating it was not helping. will discharge her at this time at her request. At this point I will be discontinuing this patient from physical therapy. I would be happy to see this patient again in the future if found appropriate by the physician. Thank you! Lawson Cantrell, DPT, OCS, CSCS Balance/Gait/Functional tests - Balance/Special Test Scores Oswestry Low Back Score: 28
== END 2022-08-01 19:00 | disposition home or self-care (01) ==
LOC: PT 07:30
PROVIDERS: PCP Family Medicine; Referring Provider Family Medicine; Visit Provider Family Medicine
DX: M51.36 Other intervertebral disc degeneration, lumbar region (principal)
CPT/HCPCS: 97110; 97162

== ENCOUNTER 2022-08-02 11:05 | Day surgery (SDC) | payer MEDICAID, SELFPAY ==
[2022-08-02] VITALS (8 sets, daily range): BP systolic 112–138; BP diastolic 75–96; PULSE 66–80; RESP 16; TEMP 36.4–37.1; O2SAT 93–100; BMI 36.4
--- NOTE | 2022-08-02 11:50 | PCM.HP.BLA ---
History and Physical Date of Admission: 08/02/22 47 F who presents to the office today to establish with GI for chronic bloating. She has early satiety, epigastric fullness, bloating. Reports almost lifelong bloating. The only time she didn't have bloating was 8 month period when she did keto diet, walked 10 miles a day, lost 100 lbs--that was 3 yrs ago. Doing modified keto diet now, but has gained weight recently. She has been on Ozempic for about a year, says not having the GI sxs she had before from [facility]. Can have some nausea in afternoon, no vomiting. No dysphagia. Occas heartburn, used to take zantac, not much of a problem if she watches carb intake. Had EGD yrs ago, told she had a hiatal hernia. Reports normal BMs, 1-2x per day. Previously on Linzess for constipation. No diarrhea, denies constipation. No melena or hematochezia. Pain in the wall of the abd LLQ from seroma following abdominoplasty last yr. Recently needed increase in dose of levothyroxine. Former smoker 12/2021?CT/Abdomen/Pelvis without Cont IMPRESSION: 1.? 5.9 x 3.3 cm circumscribed hypodense subpleural lesion along the left anterolateral abdominal wall. Differential diagnosis includes abscess, seroma, older hematoma, and lymphatic collection. 2.? Subpleural nodular focus along the anteromedial aspect of the right lung base measuring 1.9 x 1.1 cm.? Consider PET/CT for further evaluation as tumor is not excluded. 3.? Couple of subpleural right middle lobe solid-appearing noncalcified nodules measuring up to 5 mm.? Attention on follow-up chest CT. ? ROS Const Constitutional: Positive for fever(s) and weight change; No fatigue ENT ENT: No difficulty swallowing Cardio Cardiology: Positive for leg pain with exertion Gastro GI: Positive for abdominal pain, bloating and nausea/dyspepsia; No belching, change in bowel habits, change in stool character, coffee ground emesis, constipation, cramping, diarrhea, heartburn, difficulty swallowing, feeling full early, excessive flatus, incontinent of stools, Vomiting blood/hematemesis, Blood in stool, loose stools, Black,tarry stools, pain with swallowing, vomiting or other Musc Musculoskeletal: Positive for joint pain, back pain, muscle cramps, muscle weakness, numbness, stiffness, tingling, Arthritis, leg pain at night and leg pain with exertion Skin Skin: No yellowing of the eye or itchy eyes Neuro Neurology: Positive for numbness and tingling Psych Psychiatric: Positive for anxiety and No depression Endo Endocrine: Positive for weight change; No fatigue Aller/Imm Allergy/Immunologic: No itchy eyes Oleksandr/Lymp Hematologic/Lymphatic: No easy bleeding or easy bruising Exam Const General: cooperative and comfortable Nutritional Appearance: obese Orientation: alert, awake and oriented x3 HENMT Head: normal to inspection Eyes Sclera: sclerae normal Resp Effort & Inspection: normal respiratory effort GI Palpation: soft, no hepatosplenomegaly, no masses (other than abd wall mass (known seroma) LLQ) and nontender Psych Mood: euthymic mood Quality Reporting Tobacco Screening ([facility] 138) Smoking Status: Current every day smoker Assessment and Plan Assessment and Plan (1) Bloating: ?Status:?Chronic ?Plan: 47 yr old female with early satiety, epigastric fullness, bloating, hiatal hernia. Symptoms preceded Ozempic. Gastric emptying study EGD to eval for esophagitis, Dickinson's, hiatal hernia, gastritis, PUD, bile reflux Screening colonoscopy, SuTab prep per pt preference f/u 2 wks after endoscopies to discuss results (2) Hiatal hernia: ?Status:?Chronic ?Plan: see above (3) Early satiety: ?Status:?Chronic ?Plan: see above ? ? ? Medications: New sod sulf-pot chloride-mag sulf 1.479-0.188- 0.225 gram (Sutab) ?PO PER PKG DIR 24 tabs 0RF ? ? Discontinued linaclotide (Linzess) ?? Discontinued Reason:? Pt no longer taking 145 mcg? PO DAILY ? ? I have examined the patient and the H&P has been reviewed. There are no clinical changes since date of exam.
[2022-08-02] MEDS: Lactated Ringers 1,000 ML 15 ML IV (11:56)
[2022-08-02 12:10] LABS: Bedside Glucose 111 mg/dL (74-106)
--- NOTE | 2022-08-02 12:30 | EGD_PTH ---
PATIENT: CHRIS STRATTON LOC: EN U#:[id number] AGE/SX: 47/F ROOM: RE08/02/[address]: Dr. Cedric Roy DO : 1975 BED: DIS: 08/02/2022 SPEC #: [id number] RECD: 08/02/22 13:58 STATUS: ED REHector #: [id number] LUCAS: 08/02/22 12:[address]: Cedric Roy DEPT: SURGICAL PATHOLOGY RECD BY: Jocelynn Kaye ENTERED: 08/03/22 08:59 SP TYPE: EGD BIOPSY OT DR: Dr. Ismael De La Garza DO Tissues: A - Gastric mucous membrane B - Duodenum, NOS Procedures: Surgery Specimen Level IV HEADER OPERATION: EGD ([facility] [place]) with biopsies PRE-OP DIAGNOSIS: Bloating, hiatal hernia, early satiety TISSUE SUBMITTED: A ? Gastric antrum biopsy for H. pylori and path, B ? Duodenum biopsy MICROSCOPIC DIAGNOSIS A. Gastric antrum, biopsy: Chronic active gastritis. 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 See comment. B. Duodenum, biopsy: Superficial fragments of small intestinal mucosa, no pathologic diagnosis. STEPHANY:keturah 08/04/2022 COMMENT A. The results of immunohistochemistry for Helicobacter pylori will be reported separately ([id number]). MICROSCOPIC DESCRIPTION Slides are reviewed. GROSS DESCRIPTION A - Received in fixative is one container labeled with the patient's name and designated gastric antrum. The specimen consists of two irregular fragments of light mantilla soft tissue that in aggregate measure 0.6 x 0.3 x 0.1 cm. The specimen is totally submitted in one cassette. B - Received in fixative is one container labeled with the patient's name and designated duodenum biopsy. The specimen consists of multiple irregular fragments of light mantilla soft tissue that in aggregate measure 1.0 x 0.5 x 0.1 cm. The specimen is totally submitted in one cassette. / AM:keturah 08/03/2022 TC:3 CPT: 17266 x2
--- NOTE | 2022-08-02 12:30 | IMM_PTH ---
PATIENT: CHRIS STRATTON LOC: EN U#:[id number] AGE/SX: 47/F ROOM: RE08/02/[address]: Dr. Cedric Roy DO : 1975 BED: DIS: 08/02/2022 SPEC #: [id number] RECD: 08/03/22 14:46 STATUS: ED REQ #: [id number] LUCAS: 08/02/22 12:[address]: Cedric Roy DEPT: IMMUNOHISTOCHEMISTRY RECD BY: Marine Laird ENTERED: 08/03/22 14:46 SP TYPE: IMMUNO OTHR DR: Dr. Ismael De La Garza, Tissues: A - Stomach, NOS Procedures: H Pylori (initial) PHYSICIAN & INSTITUTION [place] [id number] SPECIMEN INFORMATION: Tissue Source: A ? Gastric antrum Clinical Info: Bloating, hiatal hernia, early satiety Specimen Number: [id number] CPT code: 73058 METHODOLOGY: Deparaffinized sections of prefer/formalin-fixed tissue or PAP/DQ stained slides are incubated with monoclonal/polyclonal antibodies/oligonucleotide probes. Localization is made via biotin free immunoperoxidase method. Appropriate controls are performed and reacted as expected. Results on target cell population are indicated in the following table: RESULTS: ANTIBODY / CLONE RESULT Block A H Pylori (polyclonal) negative These tests were developed and their performance characteristics determined by [facility]. They may not have been cleared or approved by the U.S. Food and Drug Administration. The FDA has determined that such clearance or approval is not necessary. The above immunohistochemical/dualISH markers are ordered and reviewed by the Pathologist. INTERPRETATION: A. Gastric antrum, biopsy: Negative for Helicobacter pylori organisms. SJ:keturah 08/04/2022
--- NOTE | 2022-08-02 12:55 | OP.EGD_ITS ---
Patient Name: Ama Avelar Procedure Date: 08/02/2022 12:40 PM Date of : 1975 Age: 47 Procedure: Upper GI endoscopy Indications: Epigastric abdominal pain Providers: Cedric Roy DO Referring MD: Cedric Roy DO Medicines: Monitored Anesthesia Care Patient Profile: This is a 47 year old female. Refer to note in patient chart for documentation of history and physical. Patient has symptoms of chronic abdominal cramping. Complications: No immediate complications. Procedure: Pre-Anesthesia Assessment: - Prior to the procedure, a History and Physical was performed, and patient medications and allergies were reviewed. The patient is competent. The risks and benefits of the procedure and the sedation options and risks were discussed with the patient. All questions were answered and informed consent was obtained. Patient identification and proposed procedure were verified by the physician in the pre-procedure area. Mental Status Examination: alert and oriented. Airway Examination: normal oropharyngeal airway and neck mobility. Prophylactic Antibiotics: The patient does not require prophylactic antibiotics. Prior Anticoagulants: The patient has taken no previous anticoagulant or antiplatelet agents. ASA Grade Assessment: II - A patient with mild systemic disease. After reviewing the risks and benefits, the patient was deemed in satisfactory condition to undergo the procedure. The anesthesia plan was to use monitored anesthesia care (MAC). Immediately prior to administration of medications, the patient was re-assessed for adequacy to receive sedatives. The heart rate, respiratory rate, oxygen saturations, blood pressure, adequacy of pulmonary ventilation, and response to care were monitored throughout the procedure. The physical status of the patient was re-assessed after the procedure. After obtaining informed consent, the endoscope was passed under direct vision. Throughout the procedure, the patient's blood pressure, pulse, and oxygen saturations were monitored continuously. The gastroscope was introduced through the mouth, and advanced to the second part of duodenum. The upper GI endoscopy was accomplished without difficulty. The patient tolerated the procedure well. Scope In: 12:46:06 PM Scope Out: 12:48:41 PM Total Procedure Duration Time 0 hours 2 minutes 35 seconds Findings: LA Grade A (one or more mucosal breaks less than 5 mm, not extending between tops of 2 mucosal folds) esophagitis with no bleeding was found 37 to 38 cm from the incisors. Biopsies were taken with a cold forceps for histology. Verification of patient identification for the specimen was done. Estimated blood loss was minimal. Patchy mild inflammation characterized by congestion (edema), erosions and erythema was found in the gastric antrum. Biopsies were taken with a cold forceps for histology. Verification of patient identification for the specimen was done. Estimated blood loss was minimal. Patchy moderate inflammation characterized by erosions, erythema, friability and granularity was found in the duodenal bulb, in the first portion of the duodenum and in the second portion of the duodenum. Biopsies were taken with a cold forceps for histology. Verification of patient identification for the specimen was done. Estimated blood loss was minimal. Impression: - LA Grade A reflux esophagitis. Biopsied. - Chronic gastritis. Biopsied. - Duodenitis. Biopsied. Recommendation: - Discharge patient to home. - Resume previous diet. - Continue present medications. - Await pathology results. - Use Protonix (pantoprazole) 40 mg PO BID for 8 weeks. - Use sucralfate tablets 1 gram PO BID. Procedure Code(s): --- Professional --- 04447, Esophagogastroduodenoscopy, flexible, transoral; with biopsy, single or multiple CPT copyright 2017 [employer]. All rights reserved. The codes documented in this report are preliminary and upon avionics systems engineer review may be revised to meet current compliance requirements. Cedric Roy DO 08/02/2022 12:54:41 PM This report has been signed electronically. Number of Addenda: 0 Note Initiated On: 08/02/2022 12:40 PM
--- NOTE | 2022-08-02 12:56 | OP.CCLET_ITS ---
08/02/2022 Ismael De La Garza [address] [place] [address] Re : Upper GI endoscopy procedure for Ama Avelar Dear Dr. De La Garza This procedure was performed on Tuesday, August 02, 2022. My impressions and recommendations are as follows: Impressions : - LA Grade A reflux esophagitis. Biopsied. - Chronic gastritis. Biopsied. - Duodenitis. Biopsied. Recommendations : - Discharge patient to home. - Resume previous diet. - Continue present medications. - Await pathology results. - Use Protonix (pantoprazole) 40 mg PO BID for 8 weeks. - Use sucralfate tablets 1 gram PO BID. My findings are described in the full procedure note, which is enclosed. If I can be of further assistance, please feel free to contact me at . Sincerely, Cedric Roy, 08/02/2022 12:54:41 PM This report has been signed electronically.
== END 2022-08-02 13:45 | disposition home or self-care (01) ==
LOC: EN 11:08 → AC 11:08
PROVIDERS: PCP Family Medicine; Referring Provider Family Medicine; Visit Provider Internal Medicine Gastroenterology
PROC: 0DJ08ZZ Inspection of Upper Intestinal Tract, Via Natural or Artificial Opening Endoscopic (ICD-10-PCS; CPT 43235; principal; 2022-08-02 12:25)
DX: K31.A0 Gastric intestinal metaplasia, unspecified (principal); E11.9 Type 2 diabetes mellitus without complications; K44.9 Diaphragmatic hernia without obstruction or gangrene; K21.00 Gastro-esophageal reflux disease with esophagitis, without bleeding; K29.50 Unspecified chronic gastritis without bleeding; K29.80 Duodenitis without bleeding; F17.200 Nicotine dependence, unspecified, uncomplicated; Z79.899 Other long term (current) drug therapy; Z79.890 Hormone replacement therapy; E78.5 Hyperlipidemia, unspecified; E06.3 Autoimmune thyroiditis; E03.9 Hypothyroidism, unspecified; E66.9 Obesity, unspecified; Z87.19 Personal history of other diseases of the digestive system
CPT/HCPCS: 43239; J2405; 82962; 88305; 88342; J7120

== ENCOUNTER → 2022-08-09 | Outpatient (CLI) | payer MEDICAID, SELFPAY ==
--- NOTE | 2022-08-09 08:52 | US_ITS ---
STUDY: ULTRASOUND BREAST - LEFT REASON FOR EXAM: Female, 47 years old. Palpable lump left breast. TECHNIQUE: Axial and longitudinal images of the LEFT breast were performed with a high resolution ultrasound transducer. # OF IMAGES: 13 COMPARISON: Comparison is made with prior exam done earlier in the day as well as prior sonogram of the left breast dated November 23, 1999 FINDINGS: LEFT Breast: The palpable lump corresponds to a 1.2 cm x 1.3 cm x 0.8 cm heterogeneous echogenicity at the 7:00 position of the breast at 7 cm from the nipple. This has decreased in size as compared to prior study. This may represent resolving hematoma. US/Breast Limited Unilateral IMPRESSION: Interval decrease in size of the heterogeneous echogenic nodule at the 7:00 position of the breast at 8 cm from the nipple. It presently measures 1.2 cm x 1.3 cm x 0.8 cm. ASSESSMENT CATEGORY: Electronically Signed: Mulugeta Waddell MD at 15:28 EDT ,
--- NOTE | 2022-08-09 08:52 | BI_ITS ---
MAMMOGRAPHY - BILATERAL DIAGNOSTIC REASON FOR EXAM: Female, 47 years old. Persistent left breast lump following breast reduction surgery. PERTINENT HISTORY: Non-contributory. TECHNIQUE: Digital bilateral breast desire (3D mammographic acquisition) in the CC and MLO projections. 2-D mediolateral oblique (MLO) and craniocaudad (CC) views of both breasts were obtained. CAD: Full Field Digital Mammography with Computer Added Detection was performed. COMPARISON: Comparison is made with prior examination of September 01, 2020 and May 17, 2017. FINDINGS: Breast Composition: There are scattered areas of fibroglandular density. Since prior study, the patient underwent bilateral breast reduction surgery. Focal glandular tissue is seen in the upper central portion of the left breast. There is deformity of the left areolar complex. No other significant abnormalities are identified. BI/DIAG MAMM W/CAD, BILAT IMPRESSION: Status post bilateral breast reduction surgery with a alteration of the breast tissue in the upper central portion of the left breast as described. This is the site of the palpable abnormality. Correlation with ultrasound is recommended. ASSESSMENT CATEGORY: BIRADS Category 0: Incomplete. Need additional imaging evaluation. A letter regarding these results will be sent to the patient by the facility within 30 days. Approximately 10% of breast cancers are not detected by mammography. A normal mammogram should not delay biopsy of a clinically suspicious abnormality. Electronically Signed: Mulugeta Waddell MD at 11:14 EDT ,
== END | disposition home or self-care (01) ==
LOC: OPBI 08:50
PROVIDERS: PCP Family Medicine; Referring Provider Nurse Practitioner Women's Health; Visit Provider Nurse Practitioner Women's Health
DX: N63.0 Unspecified lump in unspecified breast (principal)
CPT/HCPCS: 77062; 76642; 77066; G0279

== ENCOUNTER → 2022-09-12 | Outpatient (CLI) | payer MEDICAID, SELFPAY ==
[2022-09-12 12:42] LABS: Thyroid Stim Hormone (TSH) 0.57 uIU/mL (0.358-3.74)
== END | disposition home or self-care (01) ==
LOC: BFHLAB 09:32
PROVIDERS: PCP Family Medicine; Referring Provider Family Medicine; Visit Provider Family Medicine
DX: E03.9 Hypothyroidism, unspecified (principal)
CPT/HCPCS: 36415; 84443

== ENCOUNTER → 2022-09-19 | Outpatient (CLI) | payer MEDICAID, SELFPAY ==
--- NOTE | 2022-09-19 10:29 | NM_ITS ---
CLINICAL: 47-year-old female with history of anorexia. SEMI-SOLID PHASE 99m Tc SULFUR COLLOID GASTRIC EMPTYING STUDY COMPARISON: None available FINDINGS: The patient was administered 1.1 mCi of 99m Tc sulfur colloid mixed with oatmeal and consumed per os. Image acquisitions in the anterior-posterior projections were obtained for 60 minutes. There is prompt visualization of the stomach. There is no gastroesophageal reflux identified. The T ? raw data emptying was calculated to be 47.51 minutes, (Normal: 12-56 minutes). NM/Gastric Emptying Study IMPRESSION: 1. NORMAL 99m Tc sulfur colloid semi-solid phase (oatmeal) gastric emptying imaging examination. A. There is normal and preserved semi-solid phase gastric emptying compared to normal controls. (Cassidy et al, J Nucl Med Tech 38: 186, 2010). Electronically Signed: All Rae, at 22:31 EDT ,
== END | disposition home or self-care (01) ==
LOC: NM 10:25
PROVIDERS: PCP Family Medicine; Referring Provider Nurse Practitioner Adult Health; Visit Provider Nurse Practitioner Adult Health
DX: R14.0 Abdominal distension (gaseous) (principal); R68.81 Early satiety
CPT/HCPCS: 78264; A9541

== ENCOUNTER 2022-10-17 05:45 | Emergency (ER) | payer MEDICAID, SELFPAY ==
[2022-10-17 05:46] VITALS: BP 149/97; PULSE 84; RESP 18; TEMP 36.5; O2SAT 100; BMI 34.5
--- NOTE | 2022-10-17 06:07 | CT_ITS ---
EXAM: CT ABDOMEN AND PELVIS WITH INTRAVENOUS CONTRAST CLINICAL INDICATION: abd pain WITH NAUSEA TECHNIQUE: Helically acquired images were obtained of the abdomen and pelvis with intravenous contrast. This CT exam was performed using one or more of the following dose reduction techniques: automated exposure control, adjustment of the mA and/or kV according to patient size, and/or use of iterative reconstruction technique. CONTRAST: IV 100mL Isovue-370 RADIATION DOSE: CTDIvol = 16.63 mGy, DLP = 1215.56 mGy-cm. COMPARISON: CT from December 24, 2021, PET/CT report from January 04, 2022, there was mention of fluid collection consistent with seroma or hematoma the lower abdominal wall. FINDINGS: LOWER THORAX: Unremarkable. Lung bases are clear. No cardiomegaly. No significant pericardial effusion. ABDOMEN: LIVER: Similar appearance of presumed focal fat in typical location in the left lobe of the liver. Hepatomegaly and fatty liver, the right lobe is 18 cm craniocaudal. GALLBLADDER AND BILE DUCTS: Unremarkable. No calcified gallstones. No gallbladder distention or wall edema. No intra- or extrahepatic biliary ductal dilation. PANCREAS: Unremarkable. No focal cystic or solid mass. SPLEEN: Unremarkable. Normal size without focal cystic or solid mass. ADRENALS: Unremarkable. No nodules. KIDNEYS AND URETERS: Unremarkable. Normal renal size and position. No hydronephrosis. STOMACH AND BOWEL: Moderate fluid and mild gas in the stomach, mildly prominent fluid and gas in small bowel, and moderate fluid and gas in the proximal half of the colon. Mildly thick-walled appearance of descending and sigmoid colon. Mild diverticulosis of the distal colon, no evidence of acute diverticulitis. Suspicion of colitis. No stomach or bowel distention. PELVIS: APPENDIX: Unremarkable appendix, it contains fluid similar to the remainder of the proximal half of the colon. BLADDER: Unremarkable. REPRODUCTIVE: Unremarkable as visualized. No mass. ABDOMEN and PELVIS: INTRAPERITONEAL SPACE: Unremarkable. No ascites or other fluid collection. No free air. BONES/JOINTS: Unremarkable. No suspicious lytic or blastic abnormality. SOFT TISSUES: Resolution of previously seen loculated fluid collection in the left infraumbilical abdominal wall and resolution of most of the soft tissue stranding in the body wall, some residual scarring. No discrete abdominal or pelvic wall hernia. VASCULATURE: Unremarkable. Abdominal aorta is non-dilated. LYMPH NODES: Mild mesenteric adenopathy, similar. OTHER FINDINGS: Minimal disc bulges and disc margin calcifications appear similar at L4-5 and L5-S1. CT/Abdomen/Pelvis W IV Cont ONLY IMPRESSION: 1. Suspicion of early or mild colitis. Prominent fluid and gas in the proximal half of the colon with slight mucosal enhancement, and mild wall thickening and luminal narrowing of much of the distal colon. Please correlate with leukocytosis and diarrhea. 2. No evidence of acute diverticulitis or appendicitis. 3. Hepatomegaly and fatty liver with stable focal fat. Electronically Signed: Ronel Sterling MD at 7:56 EDT ,
[2022-10-17 06:33] LABS: Absolute Lymphocyte Count 3.15 X10^3/uL (0.83-4.51); Absolute Neutrophil Count 6.1 X10^3/uL (2.0-7.7); Basophil# 0.07 X10^3/uL; Basophil% 0.7 % (0-1); Eosinophil# 0.08 X10^3/uL; Eosinophils% 0.8 % (0-5); Hemoglobin 15.7 g/dL (12.0-15.0); Lymphocyte # 3.15 X10^3/ul (0.83-4.51); Lymphocyte % 31.5 % (19-41); Mean Corp Hgb Conc 32.7 g/dL (32-36); Mean Corpuscular Hgb 30.7 pg (27.0-32.0); Mean Corpuscular Volume 93.8 fL (81-99); Mean Platelet Vol. 10.7 fl (6.2-12.0); Monocyte# 0.58 X10^3/uL; Monocyte% 5.8 % (0-10); NRBC Flagged by Analyzer 0 % (0-5); Neutrophil # 6.08 X10^3/uL (2.7-7.7); Neutrophil % 60.7 % (47-70); Platelet Count 356 K/mm3 (150-450); RBC Distribution Width CV 12.8 % (11.6-14.6); RBC Distribution Width SD 44.1 fl (35.1-43.9); Red Blood Count 5.12 M/mm3 (4.2-5.4)
[2022-10-17] MEDS: proCHLORPERazine 10 MG/2 ML Vial IV (06:43)
[2022-10-17] MEDS: Morphine 4 MG/ML Syringe IV (06:43)
[2022-10-17] MEDS: 0.9% Normal Saline 1,000 ML 999 ML IV (06:44)
[2022-10-17 06:48] LABS: AST(SGOT) 35 U/L (15-37); Alanine Aminotransfer ALT/SGPT 39 U/L (13-56); Albumin, Serum 3.6 g/dL (3.2-5.0); Alkaline Phosphatase 98 U/L (45-117); Anion Gap 3 (5-15); BUN 10 mg/dL (7-18); BUN/Creat Ratio 10.5 RATIO (10-20); Bilirubin, Direct 0.11 mg/dL (0.00-0.30); Calcium,Total 9.4 mg/dL (8.5-10.1); Chloride 109 mmol/L (98-107); Creatinine, Serum 0.95 mg/dL (0.55-1.02); EST Glomerular Filtration Rate 67 mL/min (>60); Est Glom Filt Rate - Afr Amer 81 mL/min (>60); Estimated Creatinine Clearance 67.06 ml/min; Globulin 4.3 g/dL (2.2-4.2); Glucose 113 mg/dL (74-106); Lipase 68 U/L (13-75); Potassium 3.8 mmol/L (3.5-5.1); Protein, Total 7.9 g/dL (6.4-8.2); Sodium Level 138 mmol/L (136-145)
[2022-10-17 07:01] LABS: Lactic Acid 1.2 mmol/L (0.4-1.9)
[2022-10-17 08:22] LABS: Bacteria 0 SEEN /hpf (None Seen); Mucous, Urine 0 SEEN /hpf (<or=2+); Red Blood Cells-Urine 0 SEEN /hpf (0-5)
--- NOTE | 2022-10-17 08:25 | EX.ED.DYSGE1 ---
HPI History of Present Illness Chief Complaint: Abd Pain Informant: patient Narrative Narrative: Patient is a 47-year-old female with past medical history of hypertension hyperlipidemia and previous diverticulitis. She reports that she had dinner this evening and was overall feeling normal but then towards the early part of the night noticed that she had gas distention. She states she was able to fall asleep but then awoke with abdominal discomfort and nausea followed with a few bouts of vomiting and diarrhea. She states that she also had increasing generalized abdominal pain with this. She states that there is been no known sick contacts. However with her history of previous intestinal infection she was concern for this once again and therefore comes in for evaluation [facility] Medical History (Reviewed 08/31/22 @ 13:20 by Ethel Bob [employer], [employer]-C) 2 vaginal deliveries Anxiety Arthritis Arthritis Back pain Back problem Bite from insect Bone fracture Cardiac arrhythmia, unspecified Current every day smoker Former smoker GERD (gastroesophageal reflux disease) History of diverticulitis History of echocardiogram History of hiatal hernia History of migraine History of pain when walking History of stress test History of toxic effect of venomous spider bite History of ulceration Hyperlipemia Hypertension Hypothyroidism Injury of head and neck Polycystic ovarian disease Restless legs Seasonal allergies Type 2 diabetes mellitus Varicose veins of lower extremity Vitamin deficiency Wears contact lenses Wears dentures Home Medications ibuprofen 200 mg tablet 200 mg PO TID-QID PRN Pain 1-10 Or Fever 10/31/17 [History Last Taken Unknown] alprazolam 1 mg tablet 1 mg PO QDAY PRN Anxiety #30 tabs 09/24/19 [Rx Last Taken Unknown] cholecalciferol (vitamin D3) 125 mcg (5,000 unit) capsule 5,000 unit PO DAILY 06/17/20 [History Last Taken Unknown] levothyroxine 112 mcg tablet 137 mcg PO DAILY 06/17/20 [History Last Taken 08/02/22] atenolol 25 mg tablet 1 tablet PO QHS 08/01/20 [History Last Taken Unknown] pen needle, diabetic 32 gauge x 32 (BD Ultra-Fine Pennie Pen Needle) #100 ea 11/10/20 [Rx Last Taken Unknown] epinephrine 0.3 mg/0.3 mL injection, auto-injector (EpiPen 2-Magdi) 0.3 mg (0.3 mL) IM Q4H PRN anaphylaxis #2 ea 12/24/21 [Rx Last Taken Unknown] semaglutide 1 mg/dose (2 mg/1.5 mL) subcutaneous pen injector (Ozempic) 0.5 mg subcut TU 08/01/22 [History Last Taken 07/18/22] pantoprazole 20 mg tablet,delayed release 20 mg PO BID #60 tabs 08/02/22 [Rx Last Taken Unknown] sucralfate 1 gram tablet 1 g PO BID #60 tabs 08/02/22 [Rx Last Taken Unknown] doxycycline hyclate 100 mg capsule 100 mg PO BID #28 caps 09/20/22 [Rx Last Taken Unknown] oxycodone-acetaminophen 5 mg-325 mg tablet (Percocet) 1 tab PO Q6H PRN pain 3 days #12 tabs 10/17/22 [Rx Last Taken Unknown] promethazine 25 mg tablet 25 mg PO TID PRN nausea and vomiting #21 tabs 10/17/22 [Rx Last Taken Unknown] Allergy/AdvReac Type Severity Reaction Status Date / Time bee pollen Allergy Anaphylaxis Verified 08/31/22 13:13 ondansetron Allergy Hives Verified 08/31/22 13:13 [From Zofran (as hydrochloride)] Family History Grandfather Cancer Alcohol abuse Father Anxiety Arthritis Myocardial infarction Hypertension Mother Heart disease Hypertension Son Asthma Diabetes Uncle Thyroid disorder Surgical History History of 2 sections History of esophagogastroduodenoscopy (EGD) History of tubal ligation S/P bilateral breast reduction Social History Smoking Status: Current every day smoker tobacco type: cigarettes alcohol intake: never substance use type: does not use what type of physical activity do you participate in: walking frequency: daily ROS ROS ED Constitutional Constitutional ED: Denies chills or fever(s) ENT ENT ED: Denies sore throat Cardiovascular Cardiovascular: Denies chest pain Respiratory/Chest Respiratory/Chest: Denies cough or dyspnea Gastrointestinal Gastrointestinal: Reports abdominal pain, diarrhea, nausea and vomiting Genitourinary Genitourinary ED: Denies dysuria or hematuria Musculoskeletal Musculoskeletal: Denies back pain or myalgias Integumentary Denies Abrasions or rash Neurologic Neurologic: Denies headache(s) or paresthesias Hematologic/Lymphatic Hematologic/Lymphatic: Denies easy bleeding or easy bruising EXAM Physical Exam Const Vital Signs: 10/17/22 05:46 10/17/22 08:40 Temperature 97.7 F L Temperature Source Oral Pulse Rate 84 Respiratory Rate 18 16 Blood Pressure 149/97 H Blood Pressure Mean 114 Pulse Ox 100 98 Oxygen Delivery Method Room Air Positive well nourished, well developed and obese General Appearance ED: well developed Nutritional Appearance: obese HEENT Reports moist mucous membranes HEENT Narrative: No tongue or lip swelling. No oral lesions or airway compromise No signs of infection in the posterior pharynx Eyes PERRL and EOMs intact bilaterally General Eye ED: Negative for scleral icterus Neck supple Neck Narrative: No nuchal rigidity or meningeal signs noted Resp normal respiratory effort and clear to auscultation bilaterally Cardio regular rate and regular rhythm Rate: other Other Details: Radial pulses are plus 2 out of 4 bilaterally are equal and symmetric GI non-distended GI Narrative: Abdomen is soft and nondistended with hyperactive bowel sounds. There is mild diffuse pain on palpation without voluntary guarding or rigidity. No pulsatile mass or fluid wave noted. Auscultation: hyperactive bowel sounds Palpation: soft Back/Spine no CVA tenderness Extremity normal to inspection Neuro oriented x3, CN's II-XII intact bilaterally and no sensory deficits noted Sensorium / Orientation: alert Psych mental status grossly normal Skin no rashes or lesions noted and skin turgor normal General Skin Exam: Negative for jaundice MDM MDM MDM Narrative Medical decision making narrative: Patient presented to the ER mildly hypertensive otherwise with stable vitals. Based on her previous history of diverticulitis and sudden onset generalized abdominal pain I did elect to perform basic laboratory studies with CT scan. Differential diagnosis includes diverticulitis versus colitis versus gastroenteritis versus UTI versus pancreatitis versus biliary colic. Labs revealed no clinically significant findings and CT scan revealed no acute diverticulitis or appendicitis but did show mild diffuse inflammatory change concerning for early colitis. This does correlate the patient's generalized abdominal pain and bouts of nausea vomiting diarrhea. However at this time as she is not showing signs of septicemia and CAT scan is not showing perforation or obstruction there is no need for further work-up and patient is otherwise safe for discharge History & Record Review Discussion w/independent historian: Patient Lab Data Attestation: I reviewed the patient's lab results. Labs: Laboratory Results - last 24 hr 10/17/22 10/17/22 06:20 08:12 WBC 10.0 RBC 5.12 Hgb 15.7 H Hct 48.0 H MCV 93.8 MCH 30.7 MCHC 32.7 RDW Std Deviation 44.1 H RDW Coeff of Rashmi 12.8 Plt Count 356 MPV 10.7 Immature Gran % (Auto) 0.500 Neut % (Auto) 60.7 Lymph % (Auto) 31.5 [place] % (Auto) 5.8 Eos % (Auto) 0.8 Baso % (Auto) 0.7 Absolute Neuts (auto) 6.1 Absolute Lymphs (auto) 3.15 Nucleated RBC % 0 Sodium 138 Potassium 3.8 Chloride 109 H Carbon Dioxide 26.0 Anion Gap 3 L BUN 10 Creatinine 0.95 Estim Creat Clear Calc 67.06 Est GFR (MDRD) Af Amer 81 Est GFR (MDRD) Non-Af 67 BUN/Creatinine Ratio 10.5 Glucose 113 H Lactic Acid 1.2 Calcium 9.4 Total Bilirubin 0.30 Direct Bilirubin 0.11 AST 35 ALT 39 Alkaline Phosphatase 98 Total Protein 7.9 Albumin 3.6 Globulin 4.3 H Lipase 68 Urine Color Yellow Urine Clarity Clear Urine pH 5.0 Ur Specific [place] 1.010 Urine Protein 15 H Urine Glucose (UA) Normal Urine Ketones Negative Urine Occult Blood 10 H Urine Nitrite Negative Urine Bilirubin Negative Urine Urobilinogen Normal Ur Leukocyte Esterase 25 H Urine RBC 0 SEEN Urine WBC 0-5 SEEN Ur Squamous Epith Cells 0-5 SEEN Urine Bacteria 0 SEEN Urine Mucus 0 SEEN Urine Test Negative Radiography Diagnostic Testing: Clinical Impression(s) from Imaging Studies Abdomen/Pelvis CT 10/17/22 06:07 IMPRESSION: 1. Suspicion of early or mild colitis. Prominent fluid and gas in the proximal half of the colon with slight mucosal enhancement, and mild wall thickening and luminal narrowing of much of the distal colon. Please correlate with leukocytosis and diarrhea. 2. No evidence of acute diverticulitis or appendicitis. 3. Hepatomegaly and fatty liver with stable focal fat. Electronically Signed: Ronel Sterling MD at 7:56 EDT , Discharge Plan Triage Chief Complaint: Abd Pain ED Provider: Rik Landa Dx/Rx/DC Orders Clinical Impression: Colitis, Hypothyroidism, Hypertension Instructions: ED Understanding Colitis Prescriptions: New oxycodone-acetaminophen [Percocet] 5-325 mg tablet 1 tab PO Q6H PRN (Reason: pain) 3 Days Qty: 12 0RF promethazine 25 mg tablet 25 mg PO TID PRN (Reason: nausea and vomiting) Qty: 21 0RF No Action ibuprofen 200 mg tablet 200 mg PO TID-QID PRN (Reason: Pain 1-10 Or Fever) levothyroxine 112 mcg tablet 137 mcg PO DAILY cholecalciferol (vitamin D3) 125 mcg (5,000 unit) capsule 5,000 unit PO DAILY Patient Comments: TAKE 1 CAPSULE BY MOUTH DAILY FOR VITAMIN DAILY DEFICIENCY atenolol 25 MG tablet 1 tablet PO QHS Rx Instructions: TAKE ONE TABLET BY MOUTH EVERY DAY epinephrine [EpiPen 2-Magdi] 0.3 mg/0.3 mL auto-injector 0.3 mg IM Q4H PRN (Reason: anaphylaxis) Qty: 2 0RF Ozempic 1 mg/dose (2 mg/1.5 mL) pen injector 0.5 mg subcut TU alprazolam 1 mg tablet 1 mg PO QDAY PRN (Reason: Anxiety) Qty: 30 0RF (DME) pen needle, diabetic [BD Ultra-Fine Pennie Pen Needle] 32 gauge x 5/32 needle See Rx Instructions .ROUTE .MEDSUPPLY Qty: 100 3RF Rx Instructions: daily sucralfate 1 gram tablet 1 g PO BID Qty: 60 0RF pantoprazole 20 mg tablet,delayed release (DR/EC) 20 mg PO BID Qty: 60 2RF doxycycline hyclate 100 mg capsule 100 mg PO BID Qty: 28 0RF Primary Care Provider: Ismael De La Garza Referrals: Ismael De La Garza DO [Primary Care Provider] - Activity Restrictions/Additional Instructions: Your CT scan shows diffuse inflammation of your intestines which correlates with your generalized abdominal discomfort. However there is no signs of blockage or perforation and this is most likely due to a virus and is inflammatory in nature and therefore antibiotics are not required. Take the medication as directed to help control your symptoms and if they persist or worsen return for repeat evaluation Disposition Disposition: Home, Self Care Discharge Date/Time: 10/17/22 08:41
[2022-10-17 08:28] LABS: Color, Urine Yellow (Yellow); Glucose, Dipstick Normal (Normal); Ketone-Dipstick Negative (Negative); Leukocyte Esterase-Dipstick 25 /ul (Negative); Nitrite-Dipstick Negative (Negative); Occult Blood-Urine 10 /ul (Negative); Protein-Dipstick 15 mg/dl (Negative); Urine Bilirubin Dipstick Negative (Negative); Urine Clarity Clear (Clear); Urine Urobilinogen Normal (Normal)
[2022-10-17 08:39] LABS: Internal QC Validated? YES +Cl - CLEAR BKGD; Pregnancy, Urine Negative Negative; Squamous Epithelial Cells - UA 0-5 SEEN /hpf (5-10); White Blood Cells 0-5 SEEN /hpf (0-5)
[2022-10-17 08:40] VITALS: RESP 16; O2SAT 98
== END 2022-10-17 08:41 | disposition home or self-care (01) ==
PROVIDERS: Emergency Provider Emergency Medicine; PCP Family Medicine; Visit Provider Emergency Medicine
DX: K52.9 Noninfective gastroenteritis and colitis, unspecified (principal); E11.9 Type 2 diabetes mellitus without complications; F17.210 Nicotine dependence, cigarettes, uncomplicated; I10 Essential (primary) hypertension; E78.5 Hyperlipidemia, unspecified; E03.9 Hypothyroidism, unspecified; Z87.19 Personal history of other diseases of the digestive system; E66.9 Obesity, unspecified
CPT/HCPCS: 74177; 80048; 80076; 81001; 81025; 83605; 83690; 85025; 96361; 96374; 96375; 99283; J7030; J7040

== ENCOUNTER → 2022-12-26 | Outpatient (CLI) | payer MEDICAID, SELFPAY ==
--- NOTE | 2022-12-26 09:23 | RAD_ITS ---
STUDY: X-RAY - LEFT KNEE REASON FOR EXAM: Female, 47 years old. Pain following a fall. TECHNIQUE: 4 view(s) of the knee. COMPARISON: None. FINDINGS: Normal visualized distal femur. Normal visualized proximal tibia and fibula. Normal proximal tibiofibular articulation. Normal medial femorotibial compartment. Normal lateral femorotibial compartment. Normal patellofemoral articulation. The soft tissue structures are unremarkable. RAD/Knee 4 or More Views IMPRESSION: Normal x-ray examination of the knee. Electronically Signed: Mulugeta Waddell MD at 9:55 EDT ,
== END | disposition home or self-care (01) ==
LOC: MTRAD 09:22
PROVIDERS: PCP Family Medicine; Visit Provider Physician Assistant
DX: M25.562 Pain in left knee (principal)
CPT/HCPCS: 73564

== ENCOUNTER → 2023-01-01 | Outpatient (CLI) | payer MEDICAID, SELFPAY ==
--- NOTE | 2023-01-01 | EMB_PTH ---
PATIENT: CHRIS STRATTON LOC: [facility] U#:[id number] AGE/SX: 47/F ROOM: RE01/01/[address]: Dr. Lisa Haddad DO : 1975 BED: DIS: 01/01/2023 SPEC #: [id number] RECD: 01/01/23 16:07 STATUS: ED REHector #: [id number] LUCAS: 01/01/23 00:[address]: Lisa Haddad DEPT: SURGICAL PATHOLOGY RECD BY: Rajesh Castro ENTERED: 01/02/23 08:23 SP TYPE: ENDOM BX/C YRIS DR: Dr. Ismael De La Garza DO Tissues: Endometrium, NOS Procedures: Surgery Specimen Level IV HEADER OPERATION: Endometrial biopsy PRE-OP DIAGNOSIS: N93.9 TISSUE SUBMITTED: Endometrial biopsy MICROSCOPIC DIAGNOSIS Endometrium, biopsy: Fragments of benign superficial, weakly proliferative endometrium. Rare strips of benign superficial endocervix. AM:keturah 01/03/2023 MICROSCOPIC DESCRIPTION Slides are reviewed. GROSS DESCRIPTION Received is one container labeled with the patient's name and not further designated. The specimen consists of multiple fragments of hemorrhagic mucoid tissue that in aggregate measure 2.0 x 0.5 x 0.1 cm. The specimen is totally submitted in one cassette. / SJ:rg 01/02/2023 TC:5 CPT: 65043
== END | disposition home or self-care (01) ==
LOC: LABSPEC 16:10
PROVIDERS: PCP Family Medicine; Referring Provider Student in an Organized Health Care Education/Training Program; Visit Provider Student in an Organized Health Care Education/Training Program
DX: N93.9 Abnormal uterine and vaginal bleeding, unspecified (principal)
CPT/HCPCS: 88305

== ENCOUNTER → 2023-01-24 | Outpatient (CLI) | payer MEDICAID, SELFPAY ==
--- NOTE | 2023-01-24 07:59 | CT_ITS ---
INDICATION: LUNG NODULE F/U EXAMINATION: CT CHEST WITHOUT CONTRAST - CT Chest W/O Contrast Injection TECHNIQUE: Helically acquired images were obtained of the chest. A radiation dose optimization technique was used for this scan. IV Contrast dosage and agent: None. RADIATION DOSAGE (If Supplied By Facility): CTDIvol = ( 13.96 ) mGy, DLP = ( 482.00 ) mGycm COMPARISON: Chest x-ray dated 12/24/2021 FINDINGS: LUNGS, PLEURA AND LARGE AIRWAYS: Mild to moderate emphysema. Stable 3 and 4 mm nodules in the right middle lobe, one of which is subpleural in location, likely lymph node. Also stable are a couple micronodules in the right upper lobe. No pleural effusion or thickening. No pneumothorax. THYROID: No thyroid lesions. HEART AND PERICARDIUM: Heart size is normal. No pericardial effusion. Small fluid in the a pericardial recess posterior to the aorta. CORONARY ARTERIES: Coronary artery calcification present. VESSELS: Thoracic aorta is not dilated. MEDIASTINUM AND SARITHA: No mediastinal or hilar adenopathy. Esophagus is unremarkable. No hiatal hernia. UPPER ABDOMEN: Hepatomegaly and diffuse hepatic steatosis. BONES: No suspicious lytic or blastic abnormality. CT/Chest without Contrast IMPRESSION: * Stable pulmonary nodules measuring 4 mm or less for greater than one year. Per Fleischner Society guidelines, these can be considered benign. No further surveillance required. * Emphysema. * Hepatomegaly and diffuse hepatic steatosis Electronically Signed: Mark Weaver MD at 15:07 EDT ,
== END | disposition home or self-care (01) ==
LOC: CT 07:58
PROVIDERS: PCP Family Medicine; Referring Provider Family Medicine; Visit Provider Family Medicine
DX: R91.8 Other nonspecific abnormal finding of lung field (principal)
CPT/HCPCS: 71250

== ENCOUNTER → 2023-04-26 | Outpatient (CLI) | payer MEDICAID, SELFPAY ==
[2023-04-26 12:47] LABS: Microalbumin,Random Urine < 5.0 mg/L (NO RANGE EST.)
[2023-04-26 13:19] LABS: ALB/GLOB Ratio 0.8 RATIO (0.9-2.4); AST(SGOT) 65 U/L (15-37); Alanine Aminotransfer ALT/SGPT 52 U/L (13-56); Albumin, Serum 3.3 g/dL (3.2-5.0); Alkaline Phosphatase 98 U/L (45-117); Anion Gap 7 (5-15); BUN 10 mg/dL (7-18); BUN/Creat Ratio 11.6 RATIO (10-20); Chloride 104 mmol/L (98-107); Cholesterol 187 mg/dL (200); Creatinine, Serum 0.86 mg/dL (0.55-1.02); EST Glomerular Filtration Rate 74 mL/min (>60); Est Glom Filt Rate - Afr Amer 90 mL/min (>60); Globulin 4.3 g/dL (2.2-4.2); Glucose 266 mg/dL (74-106); High Density Lipoprotein 34 mg/dL; Potassium 4.2 mmol/L (3.5-5.1); Protein, Total 7.6 g/dL (6.4-8.2); Sodium Level 135 mmol/L (136-145); T4 Free Direct 1.17 ng/dL (0.76-1.46); Thyroid Stim Hormone (TSH) 3.62 uIU/mL (0.358-3.74); Triglycerides 314 mg/dL; Very Low Density Lipoprotein 63 mg/dL (5-40)
[2023-04-26 14:08] LABS: Vitamin B12 > 2000 pg/mL (211-911); Vitamin D,25 Hydroxy 59.2 ng/mL
== END | disposition home or self-care (01) ==
LOC: MTLAB 09:45
PROVIDERS: PCP Family Medicine; Referring Provider Nurse Practitioner Family; Visit Provider Nurse Practitioner Family
DX: E11.9 Type 2 diabetes mellitus without complications (principal); E03.9 Hypothyroidism, unspecified
CPT/HCPCS: 36415; 80053; 80061; 82043; 82306; 82570; 82607; 84439; 84443

== ENCOUNTER → 2023-05-02 | Outpatient (CLI) | payer MEDICAID, SELFPAY ==
--- NOTE | 2023-05-02 07:10 | US_ITS ---
INDICATION: elevated liver enzymes EXAMINATION: Ultrasound US Abdomen Limited (quadrant) TECHNIQUE: Tao scale and color doppler imaging was performed of the right upper quadrant. COMPARISON: October 17, 2022 FINDINGS: LIVER: The liver is diffusely echogenic consistent with fatty infiltration associated with hepatomegaly. GALLBLADDER AND BILIARY TREE: No shadowing gallstone, pericholecystic fluid or gallbladder wall thickening is demonstrated. The proximal common bile duct measures 2.2 mm, which is within normal limits for the patient''s age. Songraphic Cortez''s sign: Negative. PANCREAS: No focal abnormality is demonstrated in the pancreas. No pancreatic ductal dilatation. RIGHT KIDNEY: The right kidney measures 14.1 cm in length and is within normal limits. US/Liver IMPRESSION: Fatty infiltration of the liver associated with hepatomegaly. Electronically Signed: Esperanza Elizalde MD at 10:22 EST ,
--- OUTSIDE RECORDS SUMMARY | 2023-05-02 07:13 | XMS RPT_ITS | CCD ---
Author Name Unknown Address [id number] [place] [address] Organization [facility] Care Team Providers Care Director Of Religious Activities Name Role Phone DAVIDA VASQUEZ, BARI Campos Primary Care Physician Unavailable Primary Care Provider Nu HIGUERA MD, BARI Campos Primary Care Physician BARI DE LA GARZA Primary Care Unavailable HAM VASQUEZ, RAYMUNDO Agee Admitting Unavailleandro CHEEK MD, RAYMUNDO Agee Attending Unavailleandro CHEEK MD, RAYMUNDO Agee Admitting UnavailBARI Singh Primary Care Unavailable HAM VASQUEZ, RAYMUNDO Agee Attending UnavailHUNTER Avila Attending Unavailable BARI DE LA GARZA Primary Care Unavailable HUNTER DIAMOND DO Admitting Unavailable VALDEMAR GARCIA, VANESSA Agee Admitting UnavailBARI Singh Primary Care Unavailable VANESSA ALDRICH CNP Attending UnavailBARI Singh Primary Care Unavailable HAM VASQUEZ, RAYMUNDO Agee Admitting Unavailleandro CHEEK MD, RAYMUNDO Agee Attending UnavailBARI Singh Primary Care Unavailable NATALI ASHRAF CRNA Consulting Unavailable HAM VASQUEZ, RAYMUNDO Agee Admitting Unavailleandro CHEEK MD, RAYMUNDO Agee Attending UnavailBARI Esquivel DO Consulting Unavailable Bari De La Garza Primary Care Provider [phone] Cristian Rae MD Unavailable CRISTIAN RAE Attending Unavailable PERLA IZQUIERDO Referring Unavailable BARI DE LA GARZA Primary Care Unavailable PERLA IZQUIERDO Attending Unavailable EDWARD VASQUEZ, DR SUMANTH Campos Attending Unavailable DAVIDA VASQUEZ, BARI Campos Primary Care Unavailable RIDER, DICK Attending Unavailable DAVIDA VASQUEZ, BARI Campos Primary Care Unavailable ALL MATIAS Attending Unavailable Allergies Allergy Classification Reported Allergen(s) Allergy Type Date of Onset Reaction(s) Facility (10 sources) Ondansetron; Translations: [ondansetron] Drug Allergy 8 Hives, Nausea And Vomiting, Rash [facility] (4 sources) Ondansetron; Translations: [ONDANSETRON HCL (PF)] Drug Allergy 8 Rash [facility] (1 source) Ondansetron Drug Allergy [facility] Rep[facility] (7 sources) Bee pollen Allergy to substance 2 Anaphylaxis, Hives [facility] (3 sources) Bee Venom Protein (Honey Bee); Translations: [BEE VENOM PROTEIN (HONEY BEE)] Drug Allergy 3 Anaphylaxis [facility] Medications Current Medications Medication Drug Class(es) Dates Sig (Normalized) Sig (Original) acetaminophen 325 mg / butalbital 50 mg / caffeine 40 mg oral tablet (1 source) Barbiturate, Central Nervous System Stimulant, Methylxanthine Start: 05-31-2022 End: 06-03-2022 take 1 tablet by mouth every four hours as needed APAP/butalbital/ caffeine 325-50-40 mg oral tablet (Fioricet) Dose = 1 tab(s), Oral, q4h, PRN as needed, X 3 day(s), # 18 tab(s), 0 Refill(s) Start Date: 05/31/22 Stop Date: 06/03/22 Status: Ordered ALPRAZolam 1 mg oral tablet (13 sources) Benzodiazepine Start: 10-24-2019 Xanax 1 mg oral tablet Dose : 1 mg = 1 tab(s), Oral, TID, PRN for anxiety, 0 Refill(s) Start Date: 10/24/19 Status: Ordered Completed/Discontinued Medications Medication Drug Class(es) Dates Sig (Normalized) Sig (Original) azithromycin 250 mg oral tablet (3 sources) Macrolide Antimicrobial Start: 10-01-2017 azithromycin (ZITHROMAX) 250 mg tablet TAKE 2 TABLETS today then TAKE 1 TABLET DAILY UNTIL GONE 0 10/01/2017 Active Problems Active Problems Problem Classification Problem Date Documented Da te Episodic/Chronic Anxiety disorders (1 source) Panic disorder [episodic paroxysmal anxiety]; Translations: [PANIC DISORDER] Onset: 09-27-2021 Chronic Complications of surgical procedures or medical care (4 sources) Postprocedural seroma of skin and subcutaneous tissue following other procedure; Translations: [Wound pain ] Onset: 11-08-2021 01-16-2023 Episodic Diabetes mellitus without complication (12 sources) Type 2 diabetes mellitus without complications; Translations: [Type 2 diabetes mellitus without complication] Onset: 09-27-2021 10-25-2022 Chronic Diverticulosis and diverticulitis (2 sources) Diverticulosis of large intestine without perforation or abscess without bleeding; Translations: [DVRTCLOS LG INT NO PERF/ABSC W/O BL] Onset: 04-24-2022 Chronic Essential hypertension (12 sources) Essential (primary) hypertension; Translations: [Essential hypertension] Onset: 09-27-2021 10-25-2022 Chronic Headache; including migraine (1 source) Migraine, unspecified, not intractable, without status migrainosus; Translations: [MIGRAINE UNS NOT INTRACT W/O SM] Onset: 09-27-2021 Chronic Nonmalignant breast conditions (4 sources) Hypertrophy of breast; Translations: [Mastodynia] Onset: 09-27-2021 01-16-2023 Episodic Osteoarthritis (1 source) Unspecified osteoarthritis, unspecified site; Translations: [UNSPECIFIED OSTEOARTHRITIS UNS SITE] Onset: 09-27-2021 Chronic Other gastrointestinal disorders (2 sources) Intra-abdominal and pelvic swelling, mass and lump, unspecified site; Translations: [INTRA-ABD PELV SWELL MASS LUMP] Onset: 07-27-2022 Episodic Other liver diseases (1 source) Fatty (change of) liver, not elsewhere classified; Translations: [FATTY CHANGE LIVER NEC] Onset: 07-27-2022 Chronic Other lower respiratory disease (1 source) Other nonspecific abnormal finding of lung field; Translations: [OTH NONSPECIFIC ABN FIND LNG FIELD] Onset: 07-27-2022 Episodic Other nutritional; endocrine; and metabolic disorders (3 sources) Localized adiposity; Translations: [LOCALIZED ADIPOSITY] Onset: 09-27-2021 Chronic Other nutritional; endocrine; and metabolic disorders (5 sources) Obesity; Translations: [Obesity, unspecified] Onset: 10-25-2022 10-25-2022 Chronic Other nutritional; endocrine; and metabolic disorders (4 sources) Obesity caused by energy imbalance; Translations: [Other obesity due to excess calories] Onset: 10-25-2022 10-25-2022 Chronic Other nutritional; endocrine; and metabolic disorders (2 sources) Obesity, unspecified; Translations: [Obesity, unspecified] Onset: 10-25-2022 Chronic Other nutritional; endocrine; and metabolic disorders (2 sources) Body mass index (BMI) 35.0-35.9, adult; Translations: [Body mass index (BMI) 35.0-35.9, adult] Onset: 10-25-2022 Chronic Spondylosis; intervertebral disc disorders; other back problems (13 sources) Cervicalgia; Translations: [Dorsalgia, unspecified] Onset: 09-27-2021 10-25-2022 Episodic Sprains and strains (1 source) Injury of multiple muscles and tendons at shoulder and upper arm level; Translations: [Strain of unspecified muscle, fascia and tendon at shoulder and upper arm level, unspecified arm, initial encounter] Onset: 03-31-2021 Episodic Thyroid disorders (12 sources) Hypothyroidism, unspecified; Translations: [Hypothyroidism] Onset: 09-27-2021 10-25-2022 Chronic Unclassified (2 sources) New Patient; Translations: [New Patient] Onset: 08-24-2022 Past or Other Problems Problem Classification Problem Date Documented Da te Episodic/Chronic Abdominal pain (1 source) Left lower quadrant pain; Translations: [LEFT LOWER QUADRANT PAIN] Onset: 04-24-2022 Episodic Allergic reactions (1 source) Allergy status to other drugs, medicaments and biological substances status; Translations: [ALLERGY STATUS OTH RX MEDANDBIO SUBST] Onset: 04-24-2022 Episodic Other aftercare (1 source) Other group home (current) drug therapy; Translations: [OTH SENIOR LIVING CURRENT DRUG THERAPY] Onset: 04-24-2022 Episodic Other aftercare (1 source) Encounter for surgical aftercare following surgery on the skin and subcutaneous tissue; Translations: [ENC SURG AFTRCARE FLW SURG SKNANDSUBQ] Onset: 11-08-2021 Episodic Other inflammatory condition of skin (1 source) Erythema intertrigo; Translations: [ERYTHEMA INTERTRIGO] Onset: 09-27-2021 Episodic Results Test Name Value Interpretation Reference Range Facil ity Vital Signs Date Time Vital Sign Value Performing Clinician Facility 02-24-2023 21:42-0500 Diastolic Blood Pressure Non-Invasive [address] [facility] 02-24-2023 21:42-0500 Heart rate 69 /min DR DICK FONTAINE DO [facility] 02-24-2023 21:42-0500 Respiratory rate 16 /min DR DICK FONTAINE DO [facility] 02-24-2023 21:42-0500 Systolic Blood Pressure Non-Invasive [address]TA[address] [facility] 02-24-2023 20:28-0500 Blood Pressure Cuff Size DR DICK FONTAINE DO [facility] 02-24-2023 20:28-[address] DICK FONTAINE DO [facility] 02-24-2023 20:28-[address] DICK FONTAINE DO [facility] 02-24-2023 20:28-0500 Body temperature 98.6 [degF] DR DICK FONTAINE DO [facility] 02-24-2023 20:28-0500 Diastolic Blood Pressure Non-Invasive [address]TA[address] [facility] 02-24-2023 20:28-0500 Heart rate 76 /min DR DICK FONTAINE DO [facility] 02-24-2023 20:28-0500 Respiratory rate 16 /min DR DICK FONTAINE DO [facility] 02-24-2023 20:28-0500 Systolic Blood Pressure Non-Invasive [address] [facility] 01-16-2023 14:56-0400 Body height 167.6 cm All Matias MD Work Phone: [facility] 01-16-2023 14:56-0400 Body temperature 97.39 [degF] All Matias MD Work Phone: [facility] 01-16-2023 14:56-0400 Body weight 99.34 kg All Matias MD Work Phone: [facility] 01-16-2023 14:56-0400 Diastolic blood pressure 82 mm[Hg] All Matias MD Work Phone: [facility] 01-16-2023 14:56-0400 Heart rate 90 /min All Matias MD Work Phone: [facility] 01-16-2023 14:56-0400 SaO2% (BldA) [Mass fraction] 98 % All Matias MD Work Phone: [facility] 01-16-2023 14:56-0400 Systolic blood pressure 118 mm[Hg] All Matias MD Work Phone: [facility] 10-25-2022 11:46-0400 Body height 169.5 cm Cirstian Rae MD Work Phone: [facility] Encounters Encounter Date Encounter Type Care Provider Facility Start: 02-24-2023 End: 02-25-2023 Emergency department patient visit DICK FONTAINE Facility:B Start: 02-24-2023 End: 02-24-2023 Emergency department patient visit DR DICK FONTAINE DO [facility] Start: 01-17-2023 Telephone encounter All Matias MD Work Phone: General Surgery Procedures Date Procedure Procedure Detail Performing Clinician Start: 08-09-2022 Mammography Critsian Rae MD Work Phone: section DR ROBERTO JACK MD Plan of Treatment Date Care Activity Detail Author Start: 08-10-2023 Screening for malignant neoplasm of breast Mammogram [facility] Start: 2023 Zoster Vaccines (1 of 2) Zoster Vaccines (1 of 2) [facility] Start: 02-07-2023 End: 02-07-2023 Patient encounter procedure 02/07/2023 9:00 AM EDT Office Visit [facility] [address] [place] [phone] Lois Barajas MD [address] [place], [place] [id number] [facility] Start: 01-22-2023 End: 01-22-2023 Patient encounter procedure 01/22/2023 9:10 AM EDT Office Visit [facility] Pulmonary [facility] Sleep Medicine [address] [place] [phone] Bushra Hernández, COMPUTER SCIENCE TEACHER - PROCESS IMPROVEMENT ENGINEER [address] [place] [address] [facility] Start: 01-08-2023 End: 01-08-2023 Clinical Support 01/08/2023 9:00 AM EDT Clinical Support [facility] [address] [place] [phone] [place], [place] [id number] [facility] Start: 12-15-2022 Influenza vaccination Influenza Vaccine (#1) [facility] Start: 12-01-2022 End: 12-01-2022 Patient encounter procedure 12/01/2022 8:30 AM EDT Office Visit [facility] Plastic & Reconstructive Surgery [address] [place] [phone] Perla Izquierdo MD [address] [place], [place] [phone] [facility] Start: 11-15-2022 End: 11-15-2022 Patient encounter procedure 11/15/2022 2:30 PM EDT Office Visit [facility] [address] [place] [phone] Lois Barajas MD [address] [place] [address] [facility] Start: 11-01-2022 End: 11-01-2022 Clinical Support 11/01/2022 10:00 AM EDT Clinical Support [facility] [address] [place] [address] Cristian Rae MD [address] [place] [address] [facility] [address] [place] [address] [facility] Start: 04-16-2022 DEPRESSION ASSESSMENT DEPRESSION ASSESSMENT [facility] Start: 12-15-2021 Influenza vaccination INFLUENZA (#1) [facility] Start: 2018 COLOGUARD (FIT-DNA) COLOGUARD (FIT-DNA) [facility] Start: 2018 Colonoscopy COLONOSCOPY [facility] Start: 2018 COLORECTAL CANCER SCREENING COLORECTAL CANCER SCREENING [facility] Start: [address] COLONOGRAPHY [facility] Start: 2018 DIABETES SCREEN DIABETES SCREEN [facility] Start: 2018 Diabetes Screening Diabetes Screening [facility] Start: 2018 FECAL OCCULT BLOOD FECAL OCCULT BLOOD [facility] Start: 2018 Lipid 1996 panel - Serum or Plasma Lipid Screening [facility] Start: 2018 LIPID SCREEN LIPID SCREEN [facility] Start: 2018 SIGMOIDOSCOPY SIGMOIDOSCOPY [facility] Start: 2013 Mammography [facility] Start: 2013 Screening for malignant neoplasm of breast Mammogram [facility] Start: 2003 HPV TESTING HPV TESTING [facility] Start: 01-29-2004 Screening for malignant neoplasm of cervix [facility] Start: 1994 PAP TESTING PAP TESTING [facility] Start: 1994 Screening for malignant neoplasm of cervix Pap Smear [facility] Start: 1992 DTaP/Tdap/Td Vaccines (1 - Tdap) DTaP/Tdap/Td Vaccines (1 - Tdap) [facility] Start: 1992 Urine microalbumin profile [facility] Start: 1991 HEPATITIS C SCREENING HEPATITIS C SCREENING [facility] Start: 1991 Hepatitis C screening Hepatitis C Screening [facility] Start: 1991 HIV SCREENING HIV SCREENING [facility] Start: 1985 Depression Screening Depression Screening [facility] Start: 1983 Diabetic foot examination Diabetes: Foot Exam [facility] Start: 1983 Glaucoma screening Diabetes: Retinopathy Screening [facility] Start: 1983 Preventive dental service Diabetes: Dental Exam [facility] Start: 1979 Pneumococcal Vaccine: Pediatrics (0 to 5 Years) and At-Risk Patients (6 to 64 Years) (1 - PCV) Pneumococcal Vaccine: Pediatrics (0 to 5 Years) and At-Risk Patients (6 to 64 Years) (1 - PCV) [facility] Start: 1974 MMR Vaccines (1 of 1 - Standard series) MMR Vaccines (1 of 1 - Standard series) [facility] Start: 1973 COVID-19 VACCINE (#1) COVID-19 VACCINE (#1) [facility] Start: 1973 Hemoglobin A1c measurement Diabetes: Hemoglobin A1C [facility] Start: 1973 HEPATITIS B (1 of 3 - 3-dose series) HEPATITIS B (1 of 3 - 3-dose series) [facility] Start: 1973 Hepatitis B Vaccine (1 of 3 - 3-dose series) Hepatitis B Vaccine (1 of 3 - 3-dose series) [facility] Start: 1973 Hepatitis B Vaccines (1 of 3 - 3-dose series) Hepatitis B Vaccines (1 of 3 - 3-dose series) [facility] Start: 1973 HIV screening HIV Screening [facility] Start: 1973 Lipid panel Lipid Panel [facility] Start: 1973 Screening for malignant neoplasm of colon [facility] Start: 1973 Thyroid stimulating hormone measurement TSH Level [facility] Payers Date Payer Category Payer Medicaid [id number] 2013 Unknown [facility] [employer] HIOCOMP [id number] 2013-Present [phone] [address] [place] [address] O [id number] 1973 Unknown [id number] 1973 Unknown [id number] 1973 Unknown [id number] 1973 Unknown [id number] 1973 Unknown [id number] 1973 Unknown [id number] 1973 Unknown [id number] 1959 Medicaid [id number] 1959 Unknown [id number] Unknown [id number] Social History Date Type Detail Facility Start: 03-31-2021 Light tobacco smoker (finding) [facility] Heavy tobacco sm oker (finding) [facility] Start: 1973 Sex Assigned At Female A [facility] Start: 12-16-2020 End: 01-16-2023 Tobacco smoking status NHIS Ex-smoker [facility] Start: 10-11-1997 End: 11-15-2020 History of tobacco use Current smoker [facility] Start: 10-11-1997 End: 11-15-2020 History of tobacco use Cigarette Smoker [facility] Start: 12-16-2020 End: 01-16-2023 Cigarettes smoked current (pack per day) - Reported 1 [facility] Start: 12-16-2020 End: 01-16-2023 Tobacco use and exposure Smokeless tobacco non-user [facility] Start: 02-02-2021 End: 01-16-2023 Alcohol intake Current non-drinker of alcohol (finding) [facility] Start: 1973 Sex Assigned At Not on file [facility] Start: 08-24-2022 Tobacco use and exposure Former smokeless tobacco user [facility] Start: 10-25-2022 End: 10-27-2022 Alcohol intake Ex-drinker (finding) [facility] Start: 10-25-2022 End: 01-16-2023 Tobacco use panel [facility] Start: 10-15-2022 End: 10-25-2022 Exposure to SARS-CoV-2 (event) Not sure [facility] Start: 01-08-2023 Gender identity Identifies as female gender (finding) [facility] Start: 01-08-2023 Sexual orientation Heterosexual (fin ding) [facility] National Score (1-10 0), lower number is lower risk 46 [facility] Functional Status Date Assessment Result Facility 02-24-2023 Functional Status Independent [facility] 02-24-2023 Functional Status Ambulation in Jeffery, Ambulation in Room [facility] 05-31-2022 Functional Status Ambulating in jeffery, Ambulating in room, Awake, Bathroom privileges [facility] 05-31-2022 Functional Status Standard Safet y ID band on, Allergy Band on, Call device within reach, Bed in low position, Wheels locked, Upper/Half-Length side-rails up, personal items within reach [facility] Mental Status Date Assessment Result Facility 02-24-2023 Mental Status Orientation Oriented x 4 [facility] 02-24-2023 Mental Status [facility] 05-31-2022 Mental Status Orientation Oriented x 4 [facility] 05-31-2022 Mental Status [facility] Clinical Notes 02-02-2021 to 02-24-2023 Telephone Encounter - Consuelo Silver RN - 01/17/2023 4:28 PM EDAll Sandoval MD - 01/16/2023 7:04 PM EDHallie Mccann LPN - 01/16/2023 2:54 PM EDT Note Date & Type Note Facility 02-24-2023 Hospital Discharge instructions Patient Education 02/24/2023 21:51:34 Abdominal Pain Abdominal Pain Abdominal pain is pain in the stomach or belly area. Everyone has this pain from time to time. In many cases it goes away on its own. But abdominal pain can sometimes be due to a serious problem, such as appendicitis. So it s important to know when to get help. Causes of abdominal pain There are many possible causes of abdominal pain. Common causes in adults include: Constipation, diarrhea, or gas Stomach acid flowing back up into the esophagus (acid reflux or heartburn) Severe acid reflux, called GERD (gastroesophageal reflux disease) A sore in the lining of the stomach or small intestine (peptic ulcer) Inflammation of the gallbladder, liver, or pancreas Gallstones or kidney stones Appendicitis Intestinal blockage An internal organ pushing through a muscle or other tissue (hernia) Urinary tract infections In women, menstrual cramps, fibroids, ovarian cysts, pelvic inflammatory disease, or endometriosis Inflammation or infection of the intestines, including Crohn's disease and ulcerative colitis Irritable bowel syndrome Diagnosing the cause of abdominal pain Your healthcare provider will give you a physical exam help find the cause of your pain. If needed, you will have tests. Belly pain has many possible causes. So it can be hard to find the reason for your pain. Giving details about your pain can help. Tell your provider where and when you feel the pain, and what makes it better or worse. Also let your provider know if you have other symptoms such as: Fever Tiredness Upset stomach (nausea) Vomiting Changes in bathroom habits Blood in the stool or black, tarry stool Weight loss that you can't explain (involuntary weight loss?) Also report any family history of stomach or intestinal problems, or cancers. Tell your provider about all your alcohol use and drug use. Tell your provider about all medicines you use, including herbs, vitamins, and supplements. Treating abdominal pain Some causes of pain need emergency medical treatment right away. These include appendicitis or a bowel blockage. Other problems can be treated with rest, fluids, or medicines. Your healthcare provider can give you specific instructions for treatment or self-care based on what is causing your pain. If you have vomiting or diarrhea, sip water or other clear fluids. When you are ready to eat solid foods again, start with small amounts of tstt-zb-[id number], low-fat foods. These include apple sauce, toast, or crackers. When to get medical care Call 911 or go to the hospital right away if you: Can t pass stool and are vomiting Are vomiting blood or have bloody diarrhea or black, tarry diarrhea Have chest, neck, or shoulder pain Feel like you might pass out Have pain in your shoulder blades with nausea Have sudden, severe belly pain Have new, severe pain unlike any you have felt before Have a belly that is rigid, hard, and hurts to touch Call your healthcare provider if you have: Pain for more than 5 days Bloating for more than 2 days Diarrhea for more than 5 days A fever of 100.4 F (38 C) or higher, or as directed by your healthcare provider Pain that gets worse Weight loss for no reason Continued lack of appetite Blood in your stool How to prevent abdominal pain Here are some tips to help prevent abdominal pain: Eat smaller amounts of food at each meal. Don't eat greasy, fried, or other high-fat foods. Don't eat foods that give you gas. Exercise regularly. Drink plenty of fluids. To help prevent GERD symptoms: Quit smoking. Reduce alcohol and foods that increase stomach acid. Don't use aspirin or wpyg-pxn-wpdgqcs pain and fever medicines, if possible. This includes nonsteroidal anti-inflammatory drugs (NSAIDs). Lose excess weight. Finish eating at least 2 hours before you go to bed or lie down. Raise the head of your bed. [id number] [employer] [address] [place] [address], [place] [address]. All rights reserved. This information is not intended as a substitute for professional medical care. Always follow your healthcare professional's instructions. Follow Up Care 02/24/2023 20:23:13 With:BARI HIGUERA MD Address: [address] [place] [address] [phone] [facility] Note Discharge Instructions Thank you for allowing [facility] to assist you with your healthcare needs. The following is important discharge information regarding your hospital visit. Diagnosis from Today's Visit Flank pain What to Do Next Instructions from Your Care Team No qualifying data available. Post Acute Orders No qualifying data available. You Need to Schedule the Following Appointments Follow Up with BARI HIGUERA MD When Within 2-4 days Where: [address] [place] [address] [phone] Allergies Zofran Medications Please ask your primary doctor or pharmacist before taking any other medication not listed, including over the counter drugs, herbal medications, vitamins and or supplements as they may interact with your home medications. What How Much When Instructions Last Dose Unchanged ALPRAZolam (Xanax 1 mg oral tablet) 1 tab(s) by mouth Three (3) times a day as needed for for anxiety Unchanged atenolol (atenolol 25 mg oral tablet) 1 tab(s) by mouth Once a day Unchanged levothyroxine (levothyroxine 88 mcg (0.088 mg) oral tablet) 1 tab(s) by mouth Once a day Unchanged lidocaine topical (lidocaine 5% topical patch) 1 patch(es) Topical Every day Duration: 10 Days Please take this list to your next doctor s visit. Bring all medications you take, including over the counter medications, herbals and other supplements with you to your doctor s visit. Patients and families are reminded to discard old lists and to update any records with all medication providers or retail pharmacies. Education Materials Abdominal Pain Abdominal pain is pain in the stomach or belly area. Everyone has this pain from time to time. In many cases it goes away on its own. But abdominal pain can sometimes be due to a serious problem, such as appendicitis. So it s important to know when to get help. Causes of abdominal pain There are many possible causes of abdominal pain. Common causes in adults include: Constipation, diarrhea, or gas Stomach acid flowing back up into the esophagus (acid reflux or heartburn) Severe acid reflux, called GERD (gastroesophageal reflux disease) A sore in the lining of the stomach or small intestine (peptic ulcer) Inflammation of the gallbladder, liver, or pancreas Gallstones or kidney stones Appendicitis Intestinal blockage An internal organ pushing through a muscle or other tissue (hernia) Urinary tract infections In women, menstrual cramps, fibroids, ovarian cysts, pelvic inflammatory disease, or endometriosis Inflammation or infection of the intestines, including Crohn's disease and ulcerative colitis Irritable bowel syndrome Diagnosing the cause of abdominal pain Your healthcare provider will give you a physical exam help find the cause of your pain. If needed, you will have tests. Belly pain has many possible causes. So it can be hard to find the reason for your pain. Giving details about your pain can help. Tell your provider where and when you feel the pain, and what makes it better or worse. Also let your provider know if you have other symptoms such as: Fever Tiredness Upset stomach (nausea) Vomiting Changes in bathroom habits Blood in the stool or black, tarry stool Weight loss that you can't explain (involuntary weight loss?) Also report any family history of stomach or intestinal problems, or cancers. Tell your provider about all your alcohol use and drug use. Tell your provider about all medicines you use, including herbs, vitamins, and supplements. Treating abdominal pain Some causes of pain need emergency medical treatment right away. These include appendicitis or a bowel blockage. Other problems can be treated with rest, fluids, or medicines. Your healthcare provider can give you specific instructions for treatment or self-care based on what is causing your pain. If you have vomiting or diarrhea, sip water or other clear fluids. When you are ready to eat solid foods again, start with small amounts of qexc-eq-vhpogm, low-fat foods. These include apple sauce, toast, or crackers. When to get medical care Call 911 or go to the hospital right away if you: Can t pass stool and are vomiting Are vomiting blood or have bloody diarrhea or black, tarry diarrhea Have chest, neck, or shoulder pain Feel like you might pass out Have pain in your shoulder blades with nausea Have sudden, severe belly pain Have new, severe pain unlike any you have felt before Have a belly that is rigid, hard, and hurts to touch Call your healthcare provider if you have: Pain for more than 5 days Bloating for more than 2 days Diarrhea for more than 5 days A fever of 100.4 F (38 C) or higher, or as directed by your healthcare provider Pain that gets worse Weight loss for no reason Continued lack of appetite Blood in your stool How to prevent abdominal pain Here are some tips to help prevent abdominal pain: Eat smaller amounts of food at each meal. Don't eat greasy, fried, or other high-fat foods. Don't eat foods that give you gas. Exercise regularly. Drink plenty of fluids. To help prevent GERD symptoms: Quit smoking. Reduce alcohol and foods that increase stomach acid. Don't use aspirin or qqmw-scm-bqugnab pain and fever medicines, if possible. This includes nonsteroidal anti-inflammatory drugs (NSAIDs). Lose excess weight. Finish eating at least 2 hours before you go to bed or lie down. Raise the head of your bed. 3153-6070 [employer] [address] [place] [address]. All rights reserved. This information is not intended as a substitute for professional medical care. Always follow your healthcare professional's instructions. Additional Information VACCINATE! IT SAVES LIVES! Members of the community who have not yet received the COVID-19 vaccine and would like to receive it can visit one of [facility] vaccine clinics. There are many vaccine clinic locations within the [facility]. For locations and available times, please visit [email or web address] It is important to note that some COVID mobile vaccine clinics are held outdoors and may be canceled in rainy or stormy conditions. To learn more about pediatric vaccinations (ages 5-11), we invite you to visit the [facility] webpage. [email or web address]/pag [email or web address]-Cdyqr-Snovpwzpfzc-[email or web address] fh-Zugql-[email or web address].[email or web address] To learn more about the COVID-19 vaccine, we invite you to visit the CDC website for a list of frequently asked questions. https://www.cdc.gov/coronavirus/ 19-ncov/vaccines/faq.html [facility] Patient Portal Access Instructions: Stay connected with your healthcare team and access your personal medical information anytime with the [facility] Patient Portal. If you would like a full copy of your medical records please contact the [facility] Medical Records Department Sunday through Sunday between 8a.m. and 4:30p.m. Please follow the directions below to access the portal: 1.Access the email account you provided upon registration to the [facility].2.Look for an invitation email from [facility].3.Open the email and access the invitation link: Accept Invitation to [facility].Fill in the required roe to create your account. Sign into [email or web address] with your username and password that you created in the above steps to stay up to date. You can then view a summary of results, a summary of your visits, and the ability to download your summaries to your computer or send the information securely to a physician. Remember that your healthcare information is confidential, so carefully consider who you will allow to register on the [facility] Patient Portal for access to your information. You can also access the [facility] Patient Portal on the [employer] [facility]. Simply click on Health Records under Health Data and then click on the [facility] logo. HOW TO SAFELY DISPOSE OF PRESCRIPTION MEDICATIONS Please use one of the following methods to safely dispose of your unused medications. 1.Use a drug disposal kit: the drug disposal pouch allows you to safely discard your old and unused drugs. Ask your nurse to give you one when you are discharged.2.Visit a local take-back location: Many local pharmacies and police departments have programs that collect old and unwanted prescription drugs. Call your local pharmacy or go to http://Chamelic.Unirisx/1B2Hk1r to find one close to you.3.Make use of household items: Use cat litter or old coffee grounds to dispose medications if other options are not available. Mix your drugs with these household products, seal them in an airtight container and throw it into the garbage. Call [facility]: [phone] to be sure your drugs can be disposed of in this way. Some medicines may require a different approach.4.Never flush your medications down the toilet. IF YOU HAVE BEEN PRESCRIBED AN OPIOIDS FOR PAIN If you have been prescribed an opioid (such as hydrocodone, oxycodone or morphine), it is critical to understand the possible side effects and risks of opioid pain medications. Even when taken as directed, opioids can have several side effects including: Tolerance, meaning you might need to take more of a medication for the same pain relief. Nausea, vomiting and/or constipation. Sleepiness, dizziness, dry mouth, confusion, depression or itching. Physical dependence, meaning you have withdrawal symptoms when a medication is stopped ? this can develop within a few days. KNOW YOUR RESPONSIBILITIES It is important to know exactly how much and how often to take the opioid pain medications you are prescribed. Never take opioids in higher amounts or more often than prescribed. Do not combine opioids with alcohol or other drugs that cause drowsiness, such as benzodiazepines, also known as benzos, including diazepam and alprazolam, muscle relaxants or sleep aids. Never sell or share prescription opioids. This is illegal. Store opioids in a secure place and out of reach of others (including children, family, friends and visitors). The last page(s) of this document has been signed and retained as a CHART COPY Signatures Patient Education Materials Abdominal Pain Medication Leaflets My discharge plan and instructions have been reviewed and explained to me and I,GREEN, AMA understand my current condition and have read and understand these discharge instructions. I have received a written copy of the plan/instructions. If I have questions, I am aware that I should contact my doctor. Patient/Barley Steeper Signature: Date/Time: Relationship to Patient: ___ Witness Name/Signature: Date/Time: [facility] 01-17-2023 Miscellaneous Notes All Matias MD P [facility] General Surgery Pool Have a release of information form in my upper outbox. This needs to be sent to [facility] to obtain her reduction mammoplasty and abdominoplasty operative report from 2021. I am also asking that a mammogram and ultrasound report and images be pushed into our system from [facility]. Once we have these items please reschedule the patient for follow-up office visit. [facility] Medical records release faxed to [facility] in [place] at [phone]-fax confirmation sheet received. Printed from [facility] medical records: 08/09/22 mammogram and ultrasound, 09/19/22 gastric emptying study, and 10/17/22 CT of abdomen and pelvis. All reports scanned into [employer]. Requested all images to be pushed in [employer]. Consuelo Silver RN documented in this encounter [facility] 01-16-2023 Note HNO ID: [id number] Author: All Matias MD Service: ? Author Type: Physician Type: Progress Notes Filed: 02/06/2023 8:35 PM Note Text: HISTORY AND PHYSICAL Ama Avelar 1975 REFERRING PHYSICIAN: No ref. provider found CHIEF COMPLAINT: Consult (Lower abdominal pain/ seen in [facility] ER 10/17/22) HPI: The patient is a 47 year old female with a complaint of pain in her left breast at the incision site of her breast reduction and pain in the left lower quadrant at the site of an abdominoplasty. Initially seen the patient on December 16, 2020. At that time my history and exam noted: The patient is a 45 year old female with a complaint of significant reflux not significantly resolved with proton pump inhibitors and concern for irritation of her abdominal pannus. The patient saw me 3 years ago with complaints of reflux and hiatal hernia symptoms. A CT scan of the abdomen pelvis was obtained which did not demonstrate a large hiatal hernia. The patient states she had an upper endoscopy room in [place] where they told her she had a significant hiatal hernia and this was the cause of reflux symptoms. The patient has been on proton pump inhibitors. She still notes reflux. She is interested in further evaluation aside of antireflux surgery is appropriate for her. The patient had lost approximately 60 to 70 pounds of weight. She now notes a significant lower abdominal pannus which tends to rest against her pubic area and she notes irritation including frequent macerated skin and what are likely yeast infections. She is interested in panniculectomy. The patient was initially referred to the reflux center at [facility]. She denied of having endoscopy at that location. The patient did have upper endoscopy for abdominal pain with nausea performed on August 02, 2022 at [facility] by Dr. Roy. This demonstrated gastritis duodenitis and reflux esophagitis but no hiatal hernia. It was recommended she take Protonix and Carafate. She notes that overall her reflux symptoms have improved. The patient was evaluated at [facility] by Dr. Cheek. He performed abdominoplasty and then bilateral breast reduction. Patient had no postoperative issues related to her right breast reduction. She understands she had an area of fat necrosis in her left breast reduction and has had chronic pain at the 6 o'clock position since. The patient had drains placed after her abdominoplasty. She noted inflammation and to was felt to have a seroma in the left side of her abdominoplasty site. She is noted continued discomfort in that area. She underwent a CT scan of the abdomen pelvis at [facility] on October 17, 2022. This demonstrated resolution of the seroma noted on a CT scan on December 24, 2021 and from a PET CT scan dated January 04, 2022. There appeared to be some chronic scarring of the area but no active inflammation or problems. This is the site that the patient notes discomfort. PAST MEDICAL HISTORY Diagnosis Date Anxiety HTN (hypertension) Hypothyroid PAST SURGICAL HISTORY Procedure Laterality Date SECTION HX 10/2002 SECTION HX 12/16/2003 D AND C 01/2002 EXCISE EXCESS SKIN TISSUE,ABDOMEN 09/2021 also breast INCISION AND DRAINAGE ABSCESS COMPLICATED/MULTIPLE 11/2010 Abd TUBAL LIGATION HX 12/16/2003 Current Outpatient Medications Medication Sig semaglutide (OZEMPIC) 1 mg/dose (2 mg/1.5 mL) pnij Inject 1 mg subcutaneously one time a week. Phentermine HCl 37.5 mg tablet TAKE 1 TABLET BY MOUTH ONCE DAILY IN THE MORNING atenolol (TENORMIN) 25 mg tablet Take 25 mg by mouth twice daily. ALPRAZolam (XANAX) 1 mg tablet Take 1 mg by mouth as needed. cholecalciferol (VITAMIN D3) 5,000 unit tab Take 5,000 Units by mouth once daily. diphenhydramine HCl (BENADRYL ALLERGY ORAL) Take 30 mL by mouth as needed (allergy). levothyroxine (SYNTHROID) 112 mcg tablet Take 112 mcg by mouth once daily. medroxyPROGESTERone (PROVERA, CYCRIN) 10 mg tablet TAKE 1 TABLET ONCE DAILY for TEN days A MONTH to start menses (Patient not taking: Reported on 02/02/2021) VICTOZA 3-SAMUEL 0.6 mg/0.1 mL (18 mg/3 mL) Inject 1.8 MG (0.3 mL) SUBCUTANEOUSLY EVERY 24 HOURS (Patient not taking: Reported on 02/02/2021) azithromycin (ZITHROMAX) 250 mg tablet TAKE 2 TABLETS today then TAKE 1 TABLET DAILY UNTIL GONE benzonatate (TESSALON PERLE) 100 mg capsule multivit-minerals/ferrous fum (MULTI VITAMIN ORAL) Take by mouth. (Patient not taking: Reported on 01/16/2023) No current facility-administered medications for this visit. ALLERGIES: Bee Venom Protein (Honey Bee) and Zofran [Ondansetron Hcl (Pf)] PERSONAL HISTORY: Social History Tobacco Use Smoking status: Former Packs/day: 1 Types: Cigarettes Start date: 10/11/1997 Quit date: 11/15/2020 Years since quittin.1 Smokeless tobacco: Never Vaping Use Vaping Use: Never us (more content not included)... [facility] 01-16-2023 History of Present illness Narrative HISTORY AND PHYSICAL Ama Avelar 1975 REFERRING PHYSICIAN: No ref. provider found CHIEF COMPLAINT: Consult (Lower abdominal pain/ seen in [facility] ER 10/17/22) HPI: The patient is a 47 year old female with a complaint of pain in her left breast at the incision site of her breast reduction and pain in the left lower quadrant at the site of an abdominoplasty. Initially seen the patient on December 16, 2020. At that time my history and exam noted: The patient is a 45 year old female with a complaint of significant reflux not significantly resolved with proton pump inhibitors and concern for irritation of her abdominal pannus. The patient saw me 3 years ago with complaints of reflux and hiatal hernia symptoms. A CT scan of the abdomen pelvis was obtained which did not demonstrate a large hiatal hernia. The patient states she had an upper endoscopy room in [place] where they told her she had a significant hiatal hernia and this was the cause of reflux symptoms. The patient has been on proton pump inhibitors. She still notes reflux. She is interested in further evaluation aside of antireflux surgery is appropriate for her. The patient had lost approximately 60 to 70 pounds of weight. She now notes a significant lower abdominal pannus which tends to rest against her pubic area and she notes irritation including frequent macerated skin and what are likely yeast infections. She is interested in panniculectomy. The patient was initially referred to the reflux center at [facility]. She denied of having endoscopy at that location. The patient did have upper endoscopy for abdominal pain with nausea performed on August 02, 2022 at [facility] by Dr. Roy. This demonstrated gastritis duodenitis and reflux esophagitis but no hiatal hernia. It was recommended she take Protonix and Carafate. She notes that overall her reflux symptoms have improved. The patient was evaluated at [facility] by Dr. Cheek. He performed abdominoplasty and then bilateral breast reduction. Patient had no postoperative issues related to her right breast reduction. She understands she had an area of fat necrosis in her left breast reduction and has had chronic pain at the 6 o'clock position since. The patient had drains placed after her abdominoplasty. She noted inflammation and to was felt to have a seroma in the left side of her abdominoplasty site. She is noted continued discomfort in that area. She underwent a CT scan of the abdomen pelvis at [facility] on October 17, 2022. This demonstrated resolution of the seroma noted on a CT scan on December 24, 2021 and from a PET CT scan dated January 04, 2022. There appeared to be some chronic scarring of the area but no active inflammation or problems. This is the site that the patient notes discomfort. PAST MEDICAL HISTORY Diagnosis Date Anxiety HTN (hypertension) Hypothyroid PAST SURGICAL HISTORY Procedure Laterality Date SECTION HX 10/2002 SECTION HX 12/16/2003 D AND C 01/2002 EXCISE EXCESS SKIN TISSUE,ABDOMEN 09/2021 also breast INCISION & DRAINAGE ABSCESS COMPLICATED/MULTIPLE 11/2010 Abd TUBAL LIGATION HX 12/16/2003 Current Outpatient Medications Medication Sig semaglutide (OZEMPIC) 1 mg/dose (2 mg/1.5 mL) pnij Inject 1 mg subcutaneously one time a week. Phentermine HCl 37.5 mg tablet TAKE 1 TABLET BY MOUTH ONCE DAILY IN THE MORNING atenolol (TENORMIN) 25 mg tablet Take 25 mg by mouth twice daily. ALPRAZolam (XANAX) 1 mg tablet Take 1 mg by mouth as needed. cholecalciferol (VITAMIN D3) 5,000 unit tab Take 5,000 Units by mouth once daily. diphenhydramine HCl (BENADRYL ALLERGY ORAL) Take 30 mL by mouth as needed (allergy). levothyroxine (SYNTHROID) 112 mcg tablet Take 112 mcg by mouth once daily. medroxyPROGESTERone (PROVERA, CYCRIN) 10 mg tablet TAKE 1 TABLET ONCE DAILY for TEN days A MONTH to start menses (Patient not taking: Reported on 02/02/2021) VICTOZA 3-SAMUEL 0.6 mg/0.1 mL (18 mg/3 mL) Inject 1.8 MG (0.3 mL) SUBCUTANEOUSLY EVERY 24 HOURS (Patient not taking: Reported on 02/02/2021) azithromycin (ZITHROMAX) 250 mg tablet TAKE 2 TABLETS today then TAKE 1 TABLET DAILY UNTIL GONE benzonatate (TESSALON PERLE) 100 mg capsule multivit-minerals/ferrous fum (MULTI VITAMIN ORAL) Take by mouth. (Patient not taking: Reported on 01/16/2023) No current facility-administered medications for this visit. ALLERGIES: Bee Venom Protein (Honey Bee) and Zofran [Ondansetron Hcl (Pf)] PERSONAL HISTORY: Social History Tobacco Use Smoking status: Former Packs/day: 1 Types: Cigarettes Start date: 10/11/1997 Quit date: 11/15/2020 Years since quittin.1 Smokeless tobacco: Never Vaping Use Vaping Use: Never used Substance Use Topics Alcohol use: No Drug use: No FAMILY HISTORY: FAMILY HISTORY Problem Relation Age of Onset Hypertension Mother Diabetes Father Heart Father Hypertension Father Diabetes Son type 1 REVIEW OF SYMPTOMS: The review of systems data was entered by the nurse and reviewed by [place] Nursing Notes: Hallie Brice LPN 01/16/2023 2:57 PM Signed REVIEW OF SYSTEMS: General: The patient NOTES fatigue, denies weight loss, NOTES weight gain, NOTES feeling hot, and NOTES feelings of cold. Eyes: The patient denies glaucoma, denies eye injury/surgery, does not wear glasses or contacts. Ear/Nose/Throat: The patient NOTES allergies, denies hayfever, denies ear infections, and [...] patient denies difficulty swallowing, NOTES acid reflux, denies ulcers, denies vomiting, denies jaundice/hepatitis, denies gallbladder problems, denies black or tarry stools, denies hemorrhoids, denies bleeding from rectum, NOTES diverticulitis, denies constipation, denies diarrhea, denies loss of stool control, and denies hernias. Kidney/Bladder: The patient denies kidney stones, [...] abuse. Endocrine: The patient NOTES thyroid disorders, NOTES diabetes, and NOTES hormonal problems. Hematologic: The patient denies a history of bruising, denies bleeding, and denies anemia, denies blood clots. Infections: The patient denies a history of measles and mumps, denies rheumatic fever, and denies sexually transmitted diseases. Musculoskeletal: The patient denies back pain/injury, NOTES back problems, denies sciatica, NOTES knee/foot trouble, NOTES arthritis, or denies gout. When was patient's last Mammogram screening? 2022 Last Colonoscopy: NO COLONOSCOPY Hallie Brice LPN PHYSICAL EXAMINATION: General: The patient is 47 year old female, well nourished, well hydrated in no acute distress. The patient is oriented to time, place, and person. VITALS: Blood pressure 118/82, pulse 90, temperature 36.3 C (97.4 F), height 167.6 cm (5' 6 ), weight 99.3 kg (219 lb), SpO2 98 %. HEENT: Normal cephalic, ataumatic, pupils are equally round, sclera are anicteric, mucous membranes are moist, oropharynx is clear. Neck has no masses, asymmetry or lymphadenopathy. Thyroid is unremarkable. Respiratory: Clear to auscultation and percussion. Normal respiratory excursion and pattern. Cardiac: Examination is regular rate and rhythm. Abdominal exam: Soft, nontender in the upper abdomen, with no palpable masses. No hepatosplenomegaly. No palpable hernias. Transverse incision consistent with panniculectomy, tender along the entire left side. Some areas of firmness probably consistent with a degree of scarring versus tissue panniculitis/fatty infarct in the area. No palpable seroma infection or signs of drainage. Rectal exam: exam deferred Extremities: no clubbing, cyanosis or edema. No adenopathy. Other: -Right breast-post reduction mammoplasty with no abnormalities palpated and no pain. Left breast-an area of skin stretching along the 6:00 incision which is superficially quite tender. No suspicious palpable masses. A suture in the nipple areolar complex which was spitting which was actually able to remove with gentle traction. LABORATORY VALUES: As Noted RADIOLOGIC STUDIES: As Noted Assessment IMPRESSION: Pain along left lower panniculectomy incision pain at area of left 6 o'clock position of breast. PLAN: I have asked the patient to fill a release of information form to try to get copies of the operative reports from [facility]. I would also asked that the patient's mammogram and ultrasound which she stated was done earlier this year of her breasts are sent over to the clinic system secondary to those studies. I would like the patient to follow-up after we have the studies in her hands I would then plan to reevaluate the patient and consider local steroid injection at the sites. Diagnoses: (N64.4) Breast pain, left (primary encounter diagnosis) (L76.82) Incisional pain Return to Clinic: The patient is instructed to follow-up with me for the above studies have been obtained. All Matias MD documented in this encounter [facility] 01-16-2023 Nurse Note REVIEW OF SYSTEMS: General: The patient NOTES fatigue, denies weight loss, NOTES weight gain, NOTES feeling hot, and NOTES feelings of cold. Eyes: The patient denies glaucoma, denies eye injury/surgery, does not wear glasses or contacts. Ear/Nose/Throat: The patient NOTES allergies, denies hayfever, denies ear infections, and [...] patient denies difficulty swallowing, NOTES acid reflux, denies ulcers, denies vomiting, denies jaundice/hepatitis, denies gallbladder problems, denies black or tarry stools, denies hemorrhoids, denies bleeding from rectum, NOTES diverticulitis, denies constipation, denies diarrhea, denies loss of stool control, and denies hernias. Kidney/Bladder: The patient denies kidney stones, [...] abuse. Endocrine: The patient NOTES thyroid disorders, NOTES diabetes, and NOTES hormonal problems. Hematologic: The patient denies a history of bruising, denies bleeding, and denies anemia, denies blood clots. Infections: The patient denies a history of measles and mumps, denies rheumatic fever, and denies sexually transmitted diseases. Musculoskeletal: The patient denies back pain/injury, NOTES back problems, denies sciatica, NOTES knee/foot trouble, NOTES arthritis, or denies gout. When was patient's last Mammogram screening? 2022 Last Colonoscopy: NO COLONOSCOPY Hallie Brice LPN documented in this encounter [facility] 12-20-2022 Note She needs to return to plastic surgery for evaluation after her recent plastic surgery, thanks. [facility] 12-20-2022 Telephone encounter Note AGD Last OV-10/25/22 with AGD for new pt appt. Pt has not been seen by RD as it was cancelled,as well as appt with NK on 11/15/22, by pt. Will route to PC TECH for direction as pt should follow up with plastic surgeon but does not want to go back. [facility] 12-20-2022 Miscellaneous Notes AGD Last OV-10/25/22 with AGD for new pt appt. Pt has not been seen by RD as it was cancelled,as well as appt with NK on 11/15/22, by pt. Will route to PC TECH for direction as pt should follow up with plastic surgeon but does not want to go back. Name of Caller: Ama Contact Reason for Appointment: Patient states that the surgery was done by Dr. Escalona and it has left her very disfigured with increased pain. She states that she does not want to go and see him again. Please advise. Office Name: [facility] Medication Refills need, if any: none Medication Name: n/a She needs to return to plastic surgery for evaluation after her recent plastic surgery, thanks. Pt would like to have an appt scheduled w Dr. Rae due to pain in her abdomen from what she believes is from an abdominoplasty she had in 2021. She states that she had called [facility] yesterday and they directed her to call this office for help with this issue. She is however actively in the [facility] program. documented in this encounter [facility] 12-20-2022 Telephone encounter Note Name of Caller: Ama Contact Reason for Appointment: Patient states that the surgery was done by Dr. Escalona and it has left her very disfigured with increased pain. She states that she does not want to go and see him again. Please advise. Office Name: [facility] Medication Refills need, if any: none Medication Name: n/a [facility] 12-20-2022 Telephone encounter Note She needs to return to plastic surgery for evaluation after her recent plastic surgery, thanks. [facility] Work Phone: 12-20-2022 Telephone encounter Note Pt would like to have an appt scheduled w Dr. Rae due to pain in her abdomen from what she believes is from an abdominoplasty she had in 2021. She states that she had called [facility] yesterday and they directed her to call this office for help with this issue. She is however actively in the [facility] program. [facility] 10-30-2022 Note Addended by: JESS OWEN on: 10/30/2022 11:17 AM Modules accepted: Orders [facility] 10-30-2022 Miscellaneous Notes Addended by: JESS OWEN on: 10/30/2022 11:17 AM Modules accepted: Orders Orders pended, pre-op checklist scanned, EGD order sent to ALS PLAN Encounter Diagnoses Name Primary? Class 2 obesity with body mass index (BMI) of 35.0 to 35.9 in adult, unspecified obesity type, unspecified whether serious comorbidity present Primary hypertension Controlled type 2 diabetes mellitus without complication, unspecified whether terminal superintendent insulin use (HCC) Hypothyroidism, unspecified type Back pain, unspecified back location, unspecified back pain laterality, unspecified chronicity I have recommended proceeding with the evaluation and work-up for the primary procedure as outlined below: PATIENT SUMMARY Ama Rae 47 y.o. female with Body mass index is 33.23 kg/m . 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 Cheek and on Ozempic and Phenteramine/Topiromate Had recent BMI >35 with PCP - please obtain notes to document BMI> 35 and DM2 PCP: BARI DE LA GARZA INITIAL TESTING RESULTS Labwork [x] CMP, TSH, Fasting Lipid Profile, Mg, Zinc, Vit B1 (whole blood), Vit B12, 25-OH Vit D, Fe, Ferritin, Folate Tobacco [x] Serum Nicotine / Cotinine [] Negative [] Positive EGD [x] Dx: [] GERD [] Dyspepsia [] Other Pathology [x] H. pylori [] Negative [] Positive UGI [x] [] not ordered US Abdomen [x] [] not ordered GALDINO eval [] [] On CPAP / Obtain settings Hematology [] [] Hypercoagulation panel Toxicology [] [] Urine drug screen [] EtOH screen Addtional [] [] Hgb A1c INITIAL CONSULTATIONS CLEARANCE / MANAGEMENT Psychology [x] Dr. Adleritidimitri [x] Cardiology [x] [] not ordered Pulmonary [x] [] not ordered Others [] []Heme/Onc []Psychiatry []Pain mgmt PSD [] Physician supervised diet: []None []3 mos [x]6 mos Preop diet [] Preop low calory diet: [x]None []1 wk []2 wks []Ext. FINAL PRE-OP TESTING RESULTS Labwork [x] [x]Pre-op CBC [x]BMP []Serum Nicotine / Cotinine EKG [x] CXR [x] POST-OP MEDICATIONS Ulcer Ppx [] Omeprazole 20 mg PO []QD []BID Gallstone Ppx [] Ursodiol 300 mg []BID DVT Ppx [] DVT prophylaxis per final preop visit estimated risk Estimated calculated risk: % Schedule final pre-operative office visit with surgeon, pre-operative education class, and pre-operative exercise class prior to date of surgery ATTESTATION I reviewed with the patient the details of the proposed operation. The risks benefits and options were discussed. Risks included but were not limited to bleeding, infection, damage to other surrounding organs, cardio-pulmonary complications related to anesthesia, conversion from laparoscopic to and open procedure, the need for reoperative or endoscopic therapy, the potential for prolonged mechanical ventilation, and . All questions were fully answered to the patient's satisfaction and they wish to proceed with surgical intervention. A total of over 45 minute visit was spent in face to face encounter, counseling the patient, discussing the surgical/perioperative plan, record review and documentation. The patient was seen and examined independently and relevant data including a full chart rreview was performed by myself. Initial New [facility] surgical patient Navigation & Financial Counseling Discussion Patient Communication: In office SURGEON: [] SOURAV [x] AD [] MP [] TB [] LM PROCEDURE: [] LRYGB [] LSG [] DONTE-S [] DONTE [] UNDECIDED [] REV: SPECIFY: Confirmed pt wants to continue with surgical program/plan [x] YES [] NO (complete program withdrawal note/process) CO-MORBIDS: [] NONE [] DM HTN [] GALDINO []GERD [] OTH: PRIVATE PAY: [] NO []YES DATE OF INITIAL BENEFITS VERIFICATION: TRANSFER FU: [] YES [] NO PRIMARY INSURANCE: Payor: [facility] [place] / Plan: [place] / Product Type: Medicaid HMO / BENEFIT ON PLAN: [] NO [] YES BENEFIT MAX: [] NO [] YES -- BENEFIT MAX: $ EMPLOYER: DIET AND EXERCISE (DE) REQUIREMENT PRIMARY [] NONE []3M [] 6M []9M [] Medicare 4 Months [] SPR (3M) []OTHER: SECONDARY INSURANCE: BENEFIT ON PLAN: [] NO [] YES BENEFIT MAX: [] NO [] YES -- BENEFIT MAX: $ AUTH REQUIRED FROM SECONDARY [] NO [] YES DIET AND EXERCISE REQUIREMENT SECONDARY [] NONE []3M [] 6M [] Medicare 4 months [] SPR (3M) []OTHER: ___ [x] Discussed with patient: Financial cost overview (document signed and pt given copy at new pt consult visit with surgeon), Initial appointments: Bariatric Nutrition Assessment (BNA) & Diet and Exercise (DE) Patient to look for yellow envelope in mail. This yellow envelope will contain orders for labs, testing and required clearances. Pt encouraged to complete early in program to prevent delays. Encourage blood work to be draw by 1st DE appointment. [x] Reviewed OOP cost, including: [] Optifast cost of approximately $130-140/week x weeks immediately prior to surgery - used to induce rapid weight loss which results in decrease in size of liver and therefore facilitates laparoscopically surgery approach. [x] Overview of inpatient admission benefits - estimated inpatient co-pays, deductibles and/or co-insurance - Estimated OOP costs form reviewed with patient, and copy given to patient at new pt visit. [x] Reviewed next steps with patient: 1) Scheduled at new pt surgeon visit: Check Totaler (RD) for a Nutrition Assessment (BNA) and Pre-operative Diet and Exercise (DE) appointment #1. [x] Patient reminded to arrive 15 minutes early for check in. Late arrivals may need to be rescheduled. 2) Schedule: Diet and Exercise Apt #2 only scheduled after initial BNA and DE completed, 3) Behavioral Health apt scheduled after DE started. Reviewed rational and goal of Behavioral Health appointments. 4) [x] Reinforced need to cancel any WMI appointments 48 hours in advance. Cautioned NS/Same day cancellations may result in delay in program or program completion hold. Noted: DE series needs to be a monthly series or insurance company may require repeat of the entire series. 5) [x] Smoker/tobacco products including vaping: reviewed need for cessation before surgery clearance and life long abstinence after surgery for best outcomes. Patient navigation to surgery: [x] Explained to patient that average time from initial consult to date of surgery can be 6-8 months. - Process can take longer if there are cancelled appointments, delays in testing and/or additional clearances that needs to be completed. - Reviewed importance of patient active engagement in making and keeping appointments to keep the process moving. - Reinforced need to cancel appointments at least 48 hours in advance. Reviewed that instances of No Shows and Same Day Appointment Cancellations may result in program/surgery delay or hold. [x] Patient advised of importance of having voicemail and MyChart for office communications and lab/testing results before and after surgery. documented in this encounter [facility] 10-30-2022 History of Present illness Narrative ENDOSCOPY ORDERS To be scheduled with: Dr. Rae Patient is: Pre-op/Pre-Bariatric Surgery CPT code: EGD with biopsy- CPT 29856 Diagnosis: Dyspepsia- K30 If pre-op, Diet & Exercise Requirements are, and started/scheduled on 11/15/2022: 6 months Home O2: No Known Difficult Intubation: No No currents appts in program Spoke with patient and has a in family she is making arrangements for and will be contacting office in 1-2 weeks to get back on track. 01/09/23 LVM to schedule EGD. 01/11/23 Spoke to the patient. She states she had an EGD done at another facility a few months ago. I advised her to contact the office to let you know where it was done and who performed as you will need to obtain records. You may want to reach out to her as well. Will wait for further instructions regarding scheduling EGD. Thanks. Spoke with patient and she states had a GES done 09/19/2022 and EGD done 08/02/[address] Called Dr Roy 's office @ [phone] and requested reports to be faxed to our office. documented in this encounter [facility] 10-30-2022 History of Present illness Narrative ENDOSCOPY ORDERS To be scheduled with: Dr. Rae Patient is: Pre-op/Pre-Bariatric Surgery CPT code: EGD with biopsy- CPT 85210 Diagnosis: Dyspepsia- K30 If pre-op, Diet & Exercise Requirements are, and started/scheduled on 11/15/2022: 6 months Home O2: No Known Difficult Intubation: No No currents appts in program Spoke with patient and has a in family she is making arrangements for and will be contacting office in 1-2 weeks to get back on track. 01/09/23 LVM to schedule EGD. 01/11/23 Spoke to the patient. She states she had an EGD done at another facility a few months ago. I advised her to contact the office to let you know where it was done and who performed as you will need to obtain records. You may want to reach out to her as well. Will wait for further instructions regarding scheduling EGD. Thanks. Spoke with patient and she states had a GES done 09/19/2022 and EGD done 08/02/[address] Called Dr Roy 's office @ [phone] and requested reports to be faxed to our office. Records received and placed in physician folder for review. documented in this encounter [facility] 10-30-2022 Telephone encounter Note Orders pended, pre-op checklist scanned, EGD order sent to [facility] 10-30-2022 Telephone encounter Note PLAN Encounter Diagnoses Name Primary? Class 2 obesity with body mass index (BMI) of 35.0 to 35.9 in adult, unspecified obesity type, unspecified whether serious comorbidity present Primary hypertension Controlled type 2 diabetes mellitus without complication, unspecified whether terminal superintendent insulin use (HCC) Hypothyroidism, unspecified type Back pain, unspecified back location, unspecified back pain laterality, unspecified chronicity I have recommended proceeding with the evaluation and work-up for the primary procedure as outlined below: PATIENT SUMMARY Ama Rae 47 y.o. female with Body mass index is 33.23 kg/m . 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 Cheek and on Ozempic and Phenteramine/Topiromate Had recent BMI >35 with PCP - please obtain notes to document BMI> 35 and DM2 PCP: BARI DE LA GARZA INITIAL TESTING RESULTS Labwork [x] CMP, TSH, Fasting Lipid Profile, Mg, Zinc, Vit B1 (whole blood), Vit B12, 25-OH Vit D, Fe, Ferritin, Folate Tobacco [x] Serum Nicotine / Cotinine [] Negative [] Positive EGD [x] Dx: [] GERD [] Dyspepsia [] Other Pathology [x] H. pylori [] Negative [] Positive UGI [x] [] not ordered US Abdomen [x] [] not ordered GALDINO eval [] [] On CPAP / Obtain settings Hematology [] [] Hypercoagulation panel Toxicology [] [] Urine drug screen [] EtOH screen Addtional [] [] Hgb A1c INITIAL CONSULTATIONS CLEARANCE / MANAGEMENT Psychology [x] Dietitidimitri [x] Cardiology [x] [] not ordered Pulmonary [x] [] not ordered Others [] []Heme/Onc []Psychiatry []Pain mgmt PSD [] Physician supervised diet: []None []3 mos [x]6 mos Preop diet [] Preop low calory diet: [x]None []1 wk []2 wks []Ext. FINAL PRE-OP TESTING RESULTS Labwork [x] [x]Pre-op CBC [x]BMP []Serum Nicotine / Cotinine EKG [x] CXR [x] POST-OP MEDICATIONS Ulcer Ppx [] Omeprazole 20 mg PO []QD []BID Gallstone Ppx [] Ursodiol 300 mg []BID DVT Ppx [] DVT prophylaxis per final preop visit estimated risk Estimated calculated risk: % Schedule final pre-operative office visit with surgeon, pre-operative education class, and pre-operative exercise class prior to date of surgery ATTESTATION I reviewed with the patient the details of the proposed operation. The risks benefits and options were discussed. Risks included but were not limited to bleeding, infection, damage to other surrounding organs, cardio-pulmonary complications related to anesthesia, conversion from laparoscopic to and open procedure, the need for reoperative or endoscopic therapy, the potential for prolonged mechanical ventilation, and . All questions were fully answered to the patient's satisfaction and they wish to proceed with surgical intervention. A total of over 45 minute visit was spent in face to face encounter, counseling the patient, discussing the surgical/perioperative plan, record review and documentation. The patient was seen and examined independently and relevant data including a full chart rreview was performed by myself. [facility] 10-25-2022 Note Initial New [facility] surg ical patient Navigation & Financial Counseling Discussion Patient Communication: In office SURGEON: [] JZ [x] AD [] MP [] TB [] LM PROCEDURE: [] LRYGB [] LSG [] DONTE-S [] DONTE [] UNDECIDED [] REV: SPECIFY: Confirmed pt wants to continue with surgical program/plan [x] YES [] NO (complete program withdrawal note/process) CO-MORBIDS: [] NONE [] DM HTN [] GALDINO []GERD [] OTH: PRIVATE PAY: [] NO []YES DATE OF INITIAL BENEFITS VERIFICATION: TRANSFER FU: [] YES [] NO PRIMARY INSURANCE: Pay[place]: [place] / Plan: [place] / Product Type: Medicaid HMO / BENEFIT ON PLAN: [] NO [] YES BENEFIT MAX: [] NO [] YES -- BENEFIT MAX: $ EMPLOYER: DIET AND EXERCISE (DE) REQUIREMENT PRIMARY [] NONE []3M [] 6M []9M [] Medicare 4 Months [] SPR (3M) []OTHER: SECONDARY INSURANCE: BENEFIT ON PLAN: [] NO [] YES BENEFIT MAX: [] NO [] YES -- BENEFIT MAX: $ AUTH REQUIRED FROM SECONDARY [] NO [] YES DIET AND EXERCISE REQUIREMENT SECONDARY [] NONE []3M [] 6M [] Medicare 4 months [] SPR (3M) []OTHER: ___ [x] Discussed with patient: Financial cost overview (document signed and pt given copy at new pt consult visit with surgeon), Initial appointments: Bariatric Nutrition Assessment (BNA) & Diet and Exercise (DE) Patient to look for yellow envelope in mail. This yellow envelope will contain orders for labs, testing and required clearances. Pt encouraged to complete early in program to prevent delays. Encourage blood work to be draw by 1st DE appointment. [x] Reviewed OOP cost, including: [] Optifast cost of approximately $130-140/week x weeks immediately prior to surgery - used to induce rapid weight loss which results in decrease in size of liver and therefore facilitates laparoscopically surgery approach. [x] Overview of inpatient admission benefits - estimated inpatient co-pays, deductibles and/or co-insurance - Estimated OOP costs form reviewed with patient, and copy given to patient at new pt visit. [x] Reviewed next steps with patient: 1) Scheduled at new pt surgeon visit: Check Totaler (RD) for a Nutrition Assessment (BNA) and Pre-operative Diet and Exercise (DE) appointment #1. [x] Patient reminded to arrive 15 minutes early for check in. Late arrivals may need to be rescheduled. 2) Schedule: Diet and Exercise Apt #2 only scheduled after initial BNA and DE completed, 3) Behavioral Health apt scheduled after DE started. Reviewed rational and goal of Behavioral Health appointments. 4) [x] Reinforced need to cancel any WMI appointments 48 hours in advance. Cautioned NS/Same day cancellations may result in delay in program or program completion hold. Noted: DE series needs to be a monthly series or insurance company may require repeat of the entire series. 5) [x] Smoker/tobacco products including vaping: reviewed need for cessation before surgery clearance and life long abstinence after surgery for best outcomes. Patient navigation to surgery: [x] Explained to patient that average time from initial consult to date of surgery can be 6-8 months. - Process can take longer if there are cancelled appointments, delays in testing and/or additional clearances that needs to be completed. - Reviewed importance of patient active engagement in making and keeping appointments to keep the process moving. - Reinforced need to cancel appointments at least 48 hours in advance. Reviewed that instances of No Shows and Same Day Appointment Cancellations may result in program/surgery delay or hold. [x] Patient advised of importance of having voicemail and MyChart for office communications and lab/testing results before and after surgery. [facility] 10-25-2022 Telephone encounter Note Initial New [facility] surgical patient Navigation & Financial Counseling Discussion Patient Communication: In office SURGEON: [] SOURAV [x] BLU [] MP [] TB [] LM PROCEDURE: [] LRYGB [] LSG [] DONTE-S [] DONTE [] UNDECIDED [] REV: SPECIFY: Confirmed pt wants to continue with surgical program/plan [x] YES [] NO (complete program withdrawal note/process) CO-MORBIDS: [] NONE [] DM HTN [] GALDINO []GERD [] OTH: PRIVATE PAY: [] NO []YES DATE OF INITIAL BENEFITS VERIFICATION: TRANSFER FU: [] YES [] NO PRIMARY INSURANCE: Pay[place]: [place] / Plan: [place] / Product Type: Medicaid HMO / BENEFIT ON PLAN: [] NO [] YES BENEFIT MAX: [] NO [] YES -- BENEFIT MAX: $ EMPLOYER: DIET AND EXERCISE (DE) REQUIREMENT PRIMARY [] NONE []3M [] 6M []9M [] Medicare 4 Months [] SPR (3M) []OTHER: SECONDARY INSURANCE: BENEFIT ON PLAN: [] NO [] YES BENEFIT MAX: [] NO [] YES -- BENEFIT MAX: $ AUTH REQUIRED FROM SECONDARY [] NO [] YES DIET AND EXERCISE REQUIREMENT SECONDARY [] NONE []3M [] 6M [] Medicare 4 months [] SPR (3M) []OTHER: ___ [x] Discussed with patient: Financial cost overview (document signed and pt given copy at new pt consult visit with surgeon), Initial appointments: Bariatric Nutrition Assessment (BNA) & Diet and Exercise (DE) Patient to look for yellow envelope in mail. This yellow envelope will contain orders for labs, testing and required clearances. Pt encouraged to complete early in program to prevent delays. Encourage blood work to be draw by 1st DE appointment. [x] Reviewed OOP cost, including: [] Optifast cost of approximately $130-140/week x weeks immediately prior to surgery - used to induce rapid weight loss which results in decrease in size of liver and therefore facilitates laparoscopically surgery approach. [x] Overview of inpatient admission benefits - estimated inpatient co-pays, deductibles and/or co-insurance - Estimated OOP costs form reviewed with patient, and copy given to patient at new pt visit. [x] Reviewed next steps with patient: 1) Scheduled at new pt surgeon visit: Check Totaler (RD) for a Nutrition Assessment (BNA) and Pre-operative Diet and Exercise (DE) appointment #1. [x] Patient reminded to arrive 15 minutes early for check in. Late arrivals may need to be rescheduled. 2) Schedule: Diet and Exercise Apt #2 only scheduled after initial BNA and DE completed, 3) Behavioral Health apt scheduled after DE started. Reviewed rational and goal of Behavioral Health appointments. 4) [x] Reinforced need to cancel any WMI appointments 48 hours in advance. Cautioned NS/Same day cancellations may result in delay in program or program completion hold. Noted: DE series needs to be a monthly series or insurance company may require repeat of the entire series. 5) [x] Smoker/tobacco products including vaping: reviewed need for cessation before surgery clearance and life long abstinence after surgery for best outcomes. Patient navigation to surgery: [x] Explained to patient that average time from initial consult to date of surgery can be 6-8 months. - Process can take longer if there are cancelled appointments, delays in testing and/or additional clearances that needs to be completed. - Reviewed importance of patient active engagement in making and keeping appointments to keep the process moving. - Reinforced need to cancel appointments at least 48 hours in advance. Reviewed that instances of No Shows and Same Day Appointment Cancellations may result in program/surgery delay or hold. [x] Patient advised of importance of having voicemail and MyChart for office communications and lab/testing results before and after surgery. [facility] 10-25-2022 History of Present illness Narrative [facility] Rooming Note - INITIAL CONSULTATION Patient: Ama Avelar Date of : 1975 Service Date: 10/25/2022 Patient is here today to discuss the possibility of weight loss surgery. This patient is alone for the evaluation today she is interested in discussing weight loss surgery. Physician Supervised D/E: 6 Weight Metrics: Vitals BP: 111/80 Heart Rate: 76 Resp: 16 Temp: 36.6 C (97.9 F) Baseline Measures Initial Height: 5' 6.75 (169.5 cm) Initial Weight: 210 lb 9.6 oz (95.5 kg) Initial BMI: 33.3 Initial EBW: 76 lb 13.6 oz (34.9 kg) Initial Waist Cricumference: 46.75 Initial Neck Circumference: 16 Falls Risk Assessment Patient doestake medications which affect BP or mental status Patient does not have newly prescribed or changed dosage of medications within past 30 days which affect BP or mental status Patient has not fallen in the past 2 months Patient does not demonstrate unsteady gait Patient uses the following ambulatory assistive devices: none Patient is low risk for falls. If high or moderate risk, patient instructed not to ambulate independently in the Center, and cord for call light placed within reach of patient. History of Difficult Intubation: No Patient is not on home O2 Completed by: Brenna Park CRISTIAN RAE MD , FACS, [facility] [place] MINIMALLY INVASIVE & METABOLIC / BARIATRIC SURGERY [facility] BARIATRIC EVALUATION - HISTORY AND PHYSICAL 10/25/2022 PATIENT: Ama Avelar DATE OF : 1975 HISTORY OF PRESENT ILLNESS Chief Complaint: Obesity and associated conditions. Ama Avelar is a 47 y.o. female with obesity and associated conditions who presents to the [facility] for evaluation for metabolic/bariatric surgery. The patient stands Height: 5' 6.75 (169.5 cm) ([facility]) tall with a weight of Weight: 210 lb 9.6 oz (95.5 kg) , and has a BMI of Body mass index is 33.23 kg/m .. The patient has failed multiple attempts at non-surgical weight loss, and is now seeking surgical intervention to promote permanent and consistent weight loss. The patient suffers from several co-morbidities as a result of obesity as outlined in the past medical history. The patient denies a history of myocardia infarction, deep vein thrombosis, pulmonary embolism, renal failure, hepatic failure, stroke, and seizure. She does not smoke, and does not drink alcohol. Review of Systems Constitutional: Negative for chills and fever. HENT: Negative for sore throat and trouble swallowing. Respiratory: Negative for chest tightness and shortness of breath. Cardiovascular: Negative for chest pain and leg swelling. Gastrointestinal: Negative for abdominal distention, diarrhea, nausea and vomiting. Genitourinary: Negative for decreased urine volume. Skin: Negative for rash. Neurological: Negative for dizziness, syncope and weakness. Psychiatric/Behavioral: Negative for confusion. The patient is not nervous/anxious. PAST HISTORIES Past Medical History: Diagnosis Date Abdominal pain Anxiety Back pain Daytime sleepiness Diabetes type 2, controlled (HCC) Fatigue GERD (gastroesophageal reflux disease) Hypertension Hypertension Hypothyroidism Joint pain Snoring Stomach ulcer Vitamin D deficiency Past Surgical History: Procedure Laterality Date BELT ABDOMINOPLASTY 09/14/2021 BREAST REDUCTION 09/14/2021 SECTION, LOW TRANSVERSE x2 SKIN SURGERY spider bit Family History Problem Relation Name Age of Onset Hypertension Mother Heart disease Mother Obesity Mother Heart disease Father Hypertension Father Diabetes Father Obesity Father Deep vein thrombosis Father Cancer Maternal Grandfather Social History Tobacco Use Smoking status: Former Types: Cigarettes Smokeless tobacco: Former Substance Use Topics Alcohol use: Not Currently @[email or web address]@ Allergies Allergen Reactions Bee Pollen Anaphylaxis and Hives Ondansetron Hives, Nausea And Vomiting and Rash PHYSICAL EXAM BP 111/80 Pulse 76 Temp 36.6 C (97.9 F) Resp 16 Ht 5' 6.75 (1.695 m) Comment: bcc Wt 210 lb 9.6 oz (95.5 kg) BMI 33.23 kg/m General: This patient is awake, alert, and oriented, with normal affect and is in no apparent distress. Cardiac: Regular rate and rhythm without evidence of murmur. Respiratory: Clear to auscultation bilaterally with normal effort. Abdomen: Obese, soft, non-tender, non-distended without masses/ No evidence of abdominal hernia / Incisions consistent with previous surgeries. Head and Neck: Obese, normocephalic and atraumatic/soft and supple, no lymphadenopathy or obvious bruits. No thyroidmegaly. Extremities: No cyanosis, clubbing or edema/ No calf tenderness/No restrictions of movement, is ambulatory without assistance. Neurological: Intact x 4 extremities, normal sensation, no focal deficits notes. Skin: Skin cool, warm and dry. No rashes or lesions noted. Rectal: Deferred LABORATORY STUDIES AND IMAGING Laboratory Studies: No results for input(s): NA, K, CL, CO2, BUN, CREATININE, GLUCOSE, CALCIUM in the last 72 hours. No results for input(s): WBC, RBC, HGB, HCT, MCV, MCH, MCHC, RDW, PLT, MPV in the last 72 hours. No results for input(s): ALKPHOS, ALT, AST, PROT, BILITOT, BILIDIR, LIPASE in the last 72 hours. No lab exists for component: LABALBU Imaging Studies: ASSESSMENT Based on today's evaluation, the patient is a candidate for metabolic/bariatric surgical intervention. We spent a great deal of time discussing the risks and benefits of various procedure and the patient is ideally suited for SLEEVE GASTRECTOMY - aka SG. We reviewed the potential risk of the procedure including but not limited to injury to intra-abdominal organs, breakdown of the gastric staple line, the need for re-operative therapy, prolonged hospitalization, mechanical ventilation, and . We discussed the possibility of bleeding, the need for blood transfusions, blood clots, hospital-acquired and intra-abdominal infection, anastomotic stricture, and worsening GERD. And we discussed the need for post-operative visit compliance, behavior modifications and dietary compliance, protein and vitamin supplementation, as well as routine scheduled and dedicated exercise. We discussed the potential weight loss benefit, resolution of co-morbid conditions, as well as the possibility of insufficient weight loss or weight gain after 2 years post-operative time. Upon completion of all required pre-operative testing we will submit for insurance pre-authorization. PLAN Encounter Diagnoses Name Primary? Class 2 obesity with body mass index (BMI) of 35.0 to 35.9 in adult, unspecified obesity type, unspecified whether serious comorbidity present Primary hypertension Controlled type 2 diabetes mellitus without complication, unspecified whether group home insulin use (HCC) Hypothyroidism, unspecified type Back pain, unspecified back location, unspecified back pain laterality, unspecified chronicity I have recommended proceeding with the evaluation and work-up for the primary procedure as outlined below: PATIENT SUMMARY Ama Rae 47 y.o. female with Body mass index is 33.23 kg/m . 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 Cheek and on Ozempic and Phenteramine/Topiromate Had recent BMI >35 with PCP - please obtain notes to document BMI> 35 and DM2 PCP: BARI DE LA GARZA INITIAL TESTING RESULTS Labwork [x] CMP, TSH, Fasting Lipid Profile, Mg, Zinc, Vit B1 (whole blood), Vit B12, 25-OH Vit D, Fe, Ferritin, Folate Tobacco [x] Serum Nicotine / Cotinine [] Negative [] Positive EGD [x] Dx: [] GERD [] Dyspepsia [] Other Pathology [x] H. pylori [] Negative [] Positive UGI [x] [] not ordered US Abdomen [x] [] not ordered GALDINO eval [] [] On CPAP / Obtain settings Hematology [] [] Hypercoagulation panel Toxicology [] [] Urine drug screen [] EtOH screen Addtional [] [] Hgb A1c INITIAL CONSULTATIONS CLEARANCE / MANAGEMENT Psychology [x] Dietitian [x] Cardiology [x] [] not ordered Pulmonary [x] [] not ordered Others [] []Heme/Onc []Psychiatry []Pain mgmt PSD [] Physician supervised diet: []None []3 mos [x]6 mos Preop diet [] Preop low calory diet: [x]None []1 wk []2 wks []Ext. FINAL PRE-OP TESTING RESULTS Labwork [x] [x]Pre-op CBC [x]BMP []Serum Nicotine / Cotinine EKG [x] CXR [x] POST-OP MEDICATIONS Ulcer Ppx [] Omeprazole 20 mg PO []QD []BID Gallstone Ppx [] Ursodiol 300 mg []BID DVT Ppx [] DVT prophylaxis per final preop visit estimated risk Estimated calculated risk: % Schedule final pre-operative office visit with surgeon, pre-operative education class, and pre-operative exercise class prior to date of surgery ATTESTATION I reviewed with the patient the details of the proposed operation. The risks benefits and options were discussed. Risks included but were not limited to bleeding, infection, damage to other surrounding organs, cardio-pulmonary complications related to anesthesia, conversion from laparoscopic to and open procedure, the need for reoperative or endoscopic therapy, the potential for prolonged mechanical ventilation, and . All questions were fully answered to the patient's satisfaction and they wish to proceed with surgical intervention. A total of over 45 minute visit was spent in face to face encounter, counseling the patient, discussing the surgical/perioperative plan, record review and documentation. The patient was seen and examined independently and relevant data including a full chart rreview was performed by myself. TIAN RAE MD, DINAH, [facility] [place] [employer] - [facility] [facility] Voice Over Announcer - Advanced GI MIS, Foregut and Bariatric Surgery Fellowship ---[facility]--- Patient Care Team: Bari De La Garza as PCP - General (Family Medicine) see TE created for records request CRISTIAN RAE MD , FACS, [facility] [place] MINIMALLY INVASIVE & METABOLIC / BARIATRIC SURGERY [facility] BARIATRIC EVALUATION - HISTORY AND PHYSICAL 10/25/2022 PATIENT: Ama Avelar DATE OF : 1975 HISTORY OF PRESENT ILLNESS Chief Complaint: Obesity and associated conditions. Ama Avelar is a 47 y.o. female with obesity and associated conditions who presents to the [facility] for evaluation for metabolic/bariatric surgery. The patient stands Height: 5' 6.75 (169.5 cm) ([facility]) tall with a weight of Weight: 210 lb 9.6 oz (95.5 kg) , and has a BMI of Body mass index is 33.23 kg/m .. The patient has failed multiple attempts at non-surgical weight loss, and is now seeking surgical intervention to promote permanent and consistent weight loss. The patient suffers from several co-morbidities as a result of obesity as outlined in the past medical history. The patient denies a history of myocardia infarction, deep vein thrombosis, pulmonary embolism, renal failure, hepatic failure, stroke, and seizure. She does not smoke, and does not drink alcohol. Review of Systems Constitutional: Negative for chills and fever. HENT: Negative for sore throat and trouble swallowing. Respiratory: Negative for chest tightness and shortness of breath. Cardiovascular: Negative for chest pain and leg swelling. Gastrointestinal: Negative for abdominal distention, diarrhea, nausea and vomiting. Genitourinary: Negative for decreased urine volume. Skin: Negative for rash. Neurological: Negative for dizziness, syncope and weakness. Psychiatric/Behavioral: Negative for confusion. The patient is not nervous/anxious. PAST HISTORIES Medical History Past Medical History: Diagnosis Date Abdominal pain Anxiety Back pain Daytime sleepiness Diabetes type 2, controlled (HCC) Fatigue GERD (gastroesophageal reflux disease) Hypertension Hypertension Hypothyroidism Joint pain Snoring Stomach ulcer Vitamin D deficiency Surgical History Past Surgical History: Procedure Laterality Date BELT ABDOMINOPLASTY 09/14/2021 BREAST REDUCTION 09/14/2021 SECTION, LOW TRANSVERSE x2 SKIN SURGERY spider bit Family History Family History Problem Relation Name Age of Onset Hypertension Mother Heart disease Mother Obesity Mother Heart disease Father Hypertension Father Diabetes Father Obesity Father Deep vein thrombosis Father Cancer Maternal Grandfather Social History Tobacco Use Smoking status: Former Types: Cigarettes Smokeless tobacco: Former Substance Use Topics Alcohol use: Not Currently @[email or web address]@ Allergies Allergen Reactions Bee Pollen Anaphylaxis and Hives Ondansetron Hives, Nausea And Vomiting and Rash PHYSICAL EXAM BP 111/80 Pulse 76 Temp 36.6 C (97.9 F) Resp 16 Ht 5' 6.75 (1.695 m) Comment: bcc Wt 210 lb 9.6 oz (95.5 kg) BMI 33.23 kg/m General: This patient is awake, alert, and oriented, with normal affect and is in no apparent distress. Cardiac: Regular rate and rhythm without evidence of murmur. Respiratory: Clear to auscultation bilaterally with normal effort. Abdomen: Obese, soft, non-tender, non-distended without masses/ No evidence of abdominal hernia / Incisions consistent with previous surgeries. Head and Neck: Obese, normocephalic and atraumatic/soft and supple, no lymphadenopathy or obvious bruits. No thyroidmegaly. Extremities: No cyanosis, clubbing or edema/ No calf tenderness/No restrictions of movement, is ambulatory without assistance. Neurological: Intact x 4 extremities, normal sensation, no focal deficits notes. Skin: Skin cool, warm and dry. No rashes or lesions noted. Rectal: Deferred LABORATORY STUDIES AND IMAGING Laboratory Studies: No results for input(s): NA, K, CL, CO2, BUN, CREATININE, GLUCOSE, CALCIUM in the last 72 hours. No results for input(s): WBC, RBC, HGB, HCT, MCV, MCH, MCHC, RDW, PLT, MPV in the last 72 hours. No results for input(s): ALKPHOS, ALT, AST, PROT, BILITOT, BILIDIR, LIPASE in the last 72 hours. No lab exists for component: LABALBU Imaging Studies: ASSESSMENT Based on today's evaluation, the patient is a candidate for metabolic/bariatric surgical intervention. We spent a great deal of time discussing the risks and benefits of various procedure and the patient is ideally suited for SLEEVE GASTRECTOMY - aka SG. We reviewed the potential risk of the procedure including but not limited to injury to intra-abdominal organs, breakdown of the gastric staple line, the need for re-operative therapy, prolonged hospitalization, mechanical ventilation, and . We discussed the possibility of bleeding, the need for blood transfusions, blood clots, hospital-acquired and intra-abdominal infection, anastomotic stricture, and worsening GERD. And we discussed the need for post-operative visit compliance, behavior modifications and dietary compliance, protein and vitamin supplementation, as well as routine scheduled and dedicated exercise. We discussed the potential weight loss benefit, resolution of co-morbid conditions, as well as the possibility of insufficient weight loss or weight gain after 2 years post-operative time. Upon completion of all required pre-operative testing we will submit for insurance pre-authorization. PLAN Encounter Diagnoses Name Primary? Class 2 obesity with body mass index (BMI) of 35.0 to 35.9 in adult, unspecified obesity type, unspecified whether serious comorbidity present Primary hypertension Controlled type 2 diabetes mellitus without complication, unspecified whether terminal superintendent insulin use (HCC) Hypothyroidism, unspecified type Back pain, unspecified back location, unspecified back pain laterality, unspecified chronicity I have recommended proceeding with the evaluation and work-up for the primary procedure as outlined below: PATIENT SUMMARY Ama Rae 47 y.o. female with Body mass index is 33.23 kg/m . 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 Cheek and on Ozempic and Phenteramine/Topiromate Had recent BMI >35 with PCP - please obtain notes to document BMI> 35 and DM2 PCP: BARI DE LA GARZA INITIAL TESTING RESULTS Labwork [x] CMP, TSH, Fasting Lipid Profile, Mg, Zinc, Vit B1 (whole blood), Vit B12, 25-OH Vit D, Fe, Ferritin, Folate Tobacco [x] Serum Nicotine / Cotinine [] Negative [] Positive EGD [x] Dx: [] GERD [] Dyspepsia [] Other Pathology [x] H. pylori [] Negative [] Positive UGI [x] [] not ordered US Abdomen [x] [] not ordered GALDINO eval [] [] On CPAP / Obtain settings Hematology [] [] Hypercoagulation panel Toxicology [] [] Urine drug screen [] EtOH screen Addtional [] [] Hgb A1c INITIAL CONSULTATIONS CLEARANCE / MANAGEMENT Psychology [x] Dietitidimitri [x] Cardiology [x] [] not ordered Pulmonary [x] [] not ordered Others [] []Heme/Onc []Psychiatry []Pain mgmt PSD [] Physician supervised diet: []None []3 mos [x]6 mos Preop diet [] Preop low calory diet: [x]None []1 wk []2 wks []Ext. FINAL PRE-OP TESTING RESULTS Labwork [x] [x]Pre-op CBC [x]BMP []Serum Nicotine / Cotinine EKG [x] CXR [x] POST-OP MEDICATIONS Ulcer Ppx [] Omeprazole 20 mg PO []QD []BID Gallstone Ppx [] Ursodiol 300 mg []BID DVT Ppx [] DVT prophylaxis per final preop visit estimated risk Estimated calculated risk: % Schedule final pre-operative office visit with surgeon, pre-operative education class, and pre-operative exercise class prior to date of surgery ATTESTATION I reviewed with the patient the details of the proposed operation. The risks benefits and options were discussed. Risks included but were not limited to bleeding, infection, damage to other surrounding organs, cardio-pulmonary complications related to anesthesia, conversion from laparoscopic to and open procedure, the need for reoperative or endoscopic therapy, the potential for prolonged mechanical ventilation, and . All questions were fully answered to the patient's satisfaction and they wish to proceed with surgical intervention. A total of over 45 minute visit was spent in face to face encounter, counseling the patient, discussing the surgical/perioperative plan, record review and documentation. The patient was seen and examined independently and relevant data including a full chart rreview was performed by myself. TIAN RAE MD, FACS, [facility] [place] [employer] - [facility] [place] [facility] Voice Over Announcer - Advanced GI MIS, Foregut and Bariatric Surgery Fellowship ---[facility]--- Patient Care Team: Bari De La Garza as PCP - General (Family Medicine) documented in this encounter [facility] 06-01-2022 Hospital Discharge instructions Patient Education 05/31/2022 22:06:01 Headache, Migraine, Classic Migraine Headache This often severe type of headache is different from other types of headaches in that symptoms other than pain occur with the headache. Nausea and vomiting, lightheadedness, sensitivity to light (photophobia), and other visual disturbances are common migraine symptoms. The pain may last from a few hours to several days. It is not clear why migraines occur but certain factors called triggers can raise the risk of having a migraine attack. A migraine may be triggered by emotional stress or depression, or by hormone changes during the menstrual cycle. Other triggers include control pills, overuse of migraine medicines, alcohol or caffeine, foods with tyramine (such as aged cheese and wine), eyestrain, weather changes, missed meals, or too little or too much sleep. Home care Follow these tips when taking care of yourself at home: Don t drive yourself home if you were given pain medicine for your headache or are having visual symptoms. Instead, have someone else drive you home. Try to sleep when you get home. You should feel much better when you wake up. Cold can help ease migraine symptoms. Put an ice pack on your forehead or at the base of your skull. Put heat on the back of your neck to help ease any neck spasm. Drink only clear liquids or eat a light diet until your symptoms get better. This will help you avoid nausea and vomiting. How to prevent migraines Pay attention to what seems to trigger your headache. Try to avoid the triggers when you can. If you have frequent headaches, consider keeping a headache diary. In it, write down what you were doing, feeling, or eating in the hours before each headache. Show this to your healthcare provider to help find the cause of your headaches. If stress seems to be a trigger for your headaches, figure out what is causing stress in your life. Learn new ways to handle your stress. Ideas include regular exercise, biofeedback, self-hypnosis, yoga, and meditation. Talk with your healthcare provider to find out more information about managing stress. Many books and digital media are also available on this subject. Tyramine is a substance found in many foods. It can trigger a migraine in some people. These foods contain tyramine: Chocolate Yogurt All cheeses, but especially aged cheeses Smoked or pickled fish and meat, including vann, caviar, bologna, pepperoni, and salami Liver Avocados Bananas Figs Raisins Red wine Try staying away from these foods for 1 to 2 months to see if you have fewer headaches. How to treat future headaches Take time out at the first sign of a headache, if possible. Find a quiet, dark, comfortable place to sit or lie down. Let yourself relax or sleep. Put an ice pack on your forehead or on the area of greatest pain. A heating pad and massage may help if you are having a muscle spasm and tightness in your neck. If you have been prescribed a medicine to stop a migraine headache, use this at the first warning sign of the headache for best results. First signs may be an aura or pain. If you need to take medicine often for your migraine, talk with your healthcare provider about other ways to prevent your headaches. Follow-up care Follow up with your healthcare provider, or as advised. Talk with your provider if you have frequent headaches. He or she can figure out a treatment plan. Ask if you can have medicine to take at home the next time you get a bad headache. This may keep you from having to visit the emergency department in the future. You may need to see a headache specialist (neurologist) if you continue to have headaches. When to seek medical advice Call your healthcare provider right away if any of these occur: Your head pain gets worse, or doesn t get better within 24 hours You can t keep liquids down (repeated vomiting) Pain in your sinuses, ears, or throat Fever of 100.4 F (38 C) or higher, or as directed by your healthcare provider Stiff neck Extreme drowsiness, confusion, or fainting Dizziness, or dizziness with spinning sensation (vertigo) Weakness in an arm or leg, or on one side of your face Difficulty talking or seeing [id number] [employer] [address] [place] [address]. All rights reserved. This information is not intended as a substitute for professional medical care. Always follow your healthcare professional's instructions. Follow Up Care 05/31/2022 21:01:38 With:BARI HIGUERA MD Address: [address] [place] [phone] When:2-[address] [facility] 05-31-2022 Note Discharge Instructions Thank you for allowing [facility] to assist you with your healthcare needs. The following is important discharge information regarding your hospital visit. Diagnosis from Today's Visit Headache What to Do Next Instructions from Your Care Team No qualifying data available. Post Acute Orders No qualifying data available. You Need to Schedule the Following Appointments Follow Up with DAVIDA VASQUEZ, BARI Campos When Within 2-4 days Where: [address] [place] [id number] Allergies Zofran Medications Please ask your primary doctor or pharmacist before taking any other medication not listed, including over the counter drugs, herbal medications, vitamins and or supplements as they may interact with your home medications. What How Much When Instructions Last Dose New APAP/ butalbital/ caffeine (APAP/ butalbital/ caffeine 325-50-40 mg oral tablet (Fioricet)) 1 tab(s) by mouth Every 4 hours as needed for as needed Duration: 3 Days Printed Prescription Unchanged ALPRAZolam (Xanax 1 mg oral tablet) 1 tab(s) by mouth Three (3) times a day as needed for for anxiety Unchanged atenolol (atenolol 25 mg oral tablet) 1 tab(s) by mouth Once a day Unchanged levothyroxine (levothyroxine 88 mcg (0.088 mg) oral tablet) 1 tab(s) by mouth Once a day Unchanged lidocaine topical (lidocaine 5% topical patch) 1 patch(es) Topical Every day Duration: 10 Days Please take this list to your next doctor s visit. Bring all medications you take, including over the counter medications, herbals and other supplements with you to your doctor s visit. Patients and families are reminded to discard old lists and to update any records with all medication providers or retail pharmacies. Education Materials Migraine Headache This often severe type of headache is different from other types of headaches in that symptoms other than pain occur with the headache. Nausea and vomiting, lightheadedness, sensitivity to light (photophobia), and other visual disturbances are common migraine symptoms. The pain may last from a few hours to several days. It is not clear why migraines occur but certain factors called triggers can raise the risk of having a migraine attack. A migraine may be triggered by emotional stress or depression, or by hormone changes during the menstrual cycle. Other triggers include control pills, overuse of migraine medicines, alcohol or caffeine, foods with tyramine (such as aged cheese and wine), eyestrain, weather changes, missed meals, or too little or too much sleep. Home care Follow these tips when taking care of yourself at home: Don t drive yourself home if you were given pain medicine for your headache or are having visual symptoms. Instead, have someone else drive you home. Try to sleep when you get home. You should feel much better when you wake up. Cold can help ease migraine symptoms. Put an ice pack on your forehead or at the base of your skull. Put heat on the back of your neck to help ease any neck spasm. Drink only clear liquids or eat a light diet until your symptoms get better. This will help you avoid nausea and vomiting. How to prevent migraines Pay attention to what seems to trigger your headache. Try to avoid the triggers when you can. If you have frequent headaches, consider keeping a headache diary. In it, write down what you were doing, feeling, or eating in the hours before each headache. Show this to your healthcare provider to help find the cause of your headaches. If stress seems to be a trigger for your headaches, figure out what is causing stress in your life. Learn new ways to handle your stress. Ideas include regular exercise, biofeedback, self-hypnosis, yoga, and meditation. Talk with your healthcare provider to find out more information about managing stress. Many books and digital media are also available on this subject. Tyramine is a substance found in many foods. It can trigger a migraine in some people. These foods contain tyramine: Chocolate Yogurt All cheeses, but especially aged cheeses Smoked or pickled fish and meat, including vann, caviar, bologna, pepperoni, and salami Liver Avocados Bananas Figs Raisins Red wine Try staying away from these foods for 1 to 2 months to see if you have fewer headaches. How to treat future headaches Take time out at the first sign of a headache, if possible. Find a quiet, dark, comfortable place to sit or lie down. Let yourself relax or sleep. Put an ice pack on your forehead or on the area of greatest pain. A heating pad and massage may help if you are having a muscle spasm and tightness in your neck. If you have been prescribed a medicine to stop a migraine headache, use this at the first warning sign of the headache for best results. First signs may be an aura or pain. If you need to take medicine often for your migraine, talk with your healthcare provider about other ways to prevent your headaches. Follow-up care Follow up with your healthcare provider, or as advised. Talk with your provider if you have frequent headaches. He or she can figure out a treatment plan. Ask if you can have medicine to take at home the next time you get a bad headache. This may keep you from having to visit the emergency department in the future. You may need to see a headache specialist (neurologist) if you continue to have headaches. When to seek medical advice Call your healthcare provider right away if any of these occur: Your head pain gets worse, or doesn t get better within 24 hours You can t keep liquids down (repeated vomiting) Pain in your sinuses, ears, or throat Fever of 100.4 F (38 C) or higher, or as directed by your healthcare provider Stiff neck Extreme drowsiness, confusion, or fainting Dizziness, or dizziness with spinning sensation (vertigo) Weakness in an arm or leg, or on one side of your face Difficulty talking or seeing [id number] [employer] [address] [place] [address]. All rights reserved. This information is not intended as a substitute for professional medical care. Always follow your healthcare professional's instructions. Additional Information VACCINATE! IT SAVES LIVES! Members of the community who have not yet received the COVID-19 vaccine and would like to receive it can visit one of [facility] vaccine clinics. There are many vaccine clinic locations within the [facility]. For locations and available times, please visit www.gettheshot.coronavirus.[place].go [email or web address] It is important to note that some COVID mobile vaccine clinics are held outdoors and may be canceled in rainy or stormy conditions. To learn more about pediatric vaccinations (ages 5-11), we invite you to visit the [facility] webpage. https://www.[facility].org/pag es/1760-Jdebx-Nhilszlkfwb-Frequent ct-Lzfgj-Dzgnoheic.html To learn more about the COVID-19 vaccine, we invite you to visit the CDC website for a list of frequently asked questions. https://www.cdc.gov/coronavirus/-ncov/vaccines/faq.html [facility] Patient Portal Access Instructions: Stay connected with your healthcare team and access your personal medical information anytime with the [facility] Patient Portal. If you would like a full copy of your medical records please contact the [facility] Medical Records Department Sunday through Sunday between 8a.m. and 4:30p.m. Please follow the directions below to access the portal: 1.Access the email account you provided upon registration to the [facility].2.Look for an invitation email from [facility].3.Open the email and access the invitation link: Accept Invitation to [facility]4.Fill in the required roe to create your account. Sign into [email or web address] with your username and password that you created in the above steps to stay up to date. You can then view a summary of results, a summary of your visits, and the ability to download your summaries to your computer or send the information securely to a physician. Remember that your healthcare information is confidential, so carefully consider who you will allow to register on the [facility] Patient Portal for access to your information. You can also access the [facility] Patient Portal on the [employer]. Simply click on Health Records under Health Data and then click on the [employer] logo. HOW TO SAFELY DISPOSE OF PRESCRIPTION MEDICATIONS Please use one of the following methods to safely dispose of your unused medications. 1.Use a drug disposal kit: the drug disposal pouch allows you to safely discard your old and unused drugs. Ask your nurse to give you one when you are discharged.2.Visit a local take-back location: Many local pharmacies and police departments have programs that collect old and unwanted prescription drugs. Call your local pharmacy or go to http://Chamelic.Unirisx/7H7Ql1y to find one close to you.3.Make use of household items: Use cat litter or old coffee grounds to dispose medications if other options are not available. Mix your drugs with these household products, seal them in an airtight container and throw it into the garbage. Call [facility]: [phone] to be sure your drugs can be disposed of in this way. Some medicines may require a different approach.4.Never flush your medications down the toilet. IF YOU HAVE BEEN PRESCRIBED AN OPIOIDS FOR PAIN If you have been prescribed an opioid (such as hydrocodone, oxycodone or morphine), it is critical to understand the possible side effects and risks of opioid pain medications. Even when taken as directed, opioids can have several side effects including: Tolerance, meaning you might need to take more of a medication for the same pain relief. Nausea, vomiting and/or constipation. Sleepiness, dizziness, dry mouth, confusion, depression or itching. Physical dependence, meaning you have withdrawal symptoms when a medication is stopped ? this can develop within a few days. KNOW YOUR RESPONSIBILITIES It is important to know exactly how much and how often to take the opioid pain medications you are prescribed. Never take opioids in higher amounts or more often than prescribed. Do not combine opioids with alcohol or other drugs that cause drowsiness, such as benzodiazepines, also known as benzos, including diazepam and alprazolam, muscle relaxants or sleep aids. Never sell or share prescription opioids. This is illegal. Store opioids in a secure place and out of reach of others (including children, family, friends and visitors). The last page(s) of this document has been signed and retained as a CHART COPY Signatures Patient Education Materials Headache, Migraine, Classic Medication Leaflets My discharge plan and instructions have been reviewed and explained to me and I,CHAYITO AMA understand my current condition and have read and understand these discharge instructions. I have received a written copy of the plan/instructions. If I have questions, I am aware that I should contact my doctor. Patient/Barley Steeper Signature: Date/Time: Relationship to Patient: ___ Witness Name/Signature: Date/Time: [facility] 04-25-2022 Miscellaneous Notes Patient calling with physician referral: Patient referred to General Surgery Department. . Patient denies any new or worsening symptoms of which a provider is not aware:Yes. Reason for call: Had abdominal plasty in September 2021; continues to have swelling Would like second opinion Outcome: Conferenced to Appointment Center for scheduling. GO TO THE EMERGENCY ROOM OR CALL 911 IF: * You develop any new symptoms * Your condition worsens * You are concerned or anxious about your condition for any other reason. If you have any questions, you can call Nurse ornamental bronze worker back. documented in this encounter [facility] 03-31-2021 Hospital Discharge instructions Patient Education 03/31/2021 06:50:56 Shoulder Sprain Shoulder Sprain A sprain is a stretching or tearing of the ligaments that hold a joint together. A sprain may take up to 8 weeks to fully heal, depending on how severe it is. Moderate to severe shoulder sprains are treated with a sling or shoulder immobilizer. Minor sprains can be treated without any special support. Home care The following guidelines will help you care for your injury at home: If a sling was given to you, leave it in place for the time advised by your healthcare provider. If you aren t sure how long to wear it, ask for advice. If the sling becomes loose, adjust it so that your forearm is level with the ground. Your shoulder should feel well supported. Put an ice pack on the injured area for 20 minutes every 1 to 2 hours the first day. You can make your own ice pack by putting ice cubes in a plastic bag. A bag of frozen peas or something similar works well too. Wrap the bag in a thin towel. Continue with ice packs 3 to 4 times a day for the next 2 to 3 days. Then use the pack as needed to ease pain and swelling. You may use acetaminophen or ibuprofen to control pain, unless another pain medicine was prescribed. If you have chronic liver or kidney disease, talk with your healthcare provider before using these medicines. Also talk with your provider if you ve had a stomach ulcer or gastrointestinal bleeding. Shoulder joints become stiff if left in a sling for too long. You should start range of motion exercises about 7 to 10 days after the injury. Talk with your provider to find out what type of exercises to do and how soon to start. Follow-up care Follow up with your healthcare provider, or as advised. Any X-rays you had today don t show any broken bones, breaks, or fractures. Sometimes fractures don t show up on the first X-ray. Bruises and sprains can sometimes hurt as much as a fracture. These injuries can take time to heal completely. If your symptoms don t improve or they get worse, talk with your provider. You may need a repeat X-ray or other treatments. When to seek medical advice Call your healthcare provider right away if any of these occur: Shoulder pain or swelling in your arm that gets worse Fingers become cold, blue, numb, or tingly Large amount of bruising of the shoulder or upper arm Fever or chills 3420-0516 [employer]. [address] [place], [place] [address]. All rights reserved. This information is not intended as a substitute for professional medical care. Always follow your healthcare professional's instructions. Follow Up Care 03/31/2021 06:05:14 With:NINI ZAMARRIPA Address: [address] [facility] [place] [address]- Business (1) When:2-4 days With:BARI HIGUERA Address: [address] [place] [address] [phone] Business (1) When:2-[address] [facility] 02-02-2021 Note HNO ID: [id number] Author: Laz Walker MD Service: ? Author Type: Physician Type: Progress Notes Filed: 02/02/2021 12:26 PM Note Text: Ama Avelar is a 45 year old White female who presents with complaints of possible abdominal wall hernia and GERD. She was told in the past that she has hiatal hernia. She is also concerned of possible abdominal wall hernia. She has lost about 60 to 70 pounds and wants to lose 20 more pounds. She is scheduled to go see a plastic surgeon in a few weeks to evaluate for an abdominoplasty. At that time she was wondering if a combined hernia repair and abdominoplasty can be performed as well. She stopped taking her PPI as she reports minimal change in her reflux symptoms with or without the medication. She does report regurgitation on a daily basis. She denies any dysphagia. She is also in the process of quitting smoking. Upon further questioning she seems to have confused an abdominal wall hernia versus a hiatal hernia. I did attempt to explain the difference to her. She had a CT scan 3 years ago which showed no acute findings and no hiatal hernia was present on the CT scan. Abdominal wall was intact. PAST MEDICAL HISTORY Diagnosis Date - Anxiety - HTN (hypertension) - Hypothyroid PAST SURGICAL HISTORY Procedure Laterality Date - SECTION HX 10/2002 - SECTION HX 12/16/2003 - D AND C 01/2002 - IANDD ABSC; COMPL OR MULTI 11/2010 Abd - TUBAL LIGATION HX 12/16/2003 Social History Tobacco Use - Smoking status: Former Smoker Packs/day: 1.00 Start date: 10/11/1997 Quit date: 11/15/2020 Years since quittin.2 - Smokeless tobacco: Never Used Substance Use Topics - Alcohol use: No - Drug use: No FAMILY HISTORY Problem Relation Age of Onset - Hypertension Mother - Heart Father - Hypertension Father - Diabetes Son type 1 ALLERGIES Allergen Reactions - Zofran [Ondansetron* Rash Current Outpatient Medications Medication Sig - semaglutide (OZEMPIC) 1 mg/dose (2 mg/1.5 mL) pnij Inject 1 mg subcutaneously one time a week. - levothyroxine (SYNTHROID) 112 mcg tablet Take 112 mcg by mouth once daily. - Phentermine HCl 37.5 mg tablet TAKE 1 TABLET BY MOUTH ONCE DAILY IN THE MORNING - atenolol (TENORMIN) 25 mg tablet Take 25 mg by mouth twice daily. - ALPRAZolam (XANAX) 1 mg tablet Take 1 mg by mouth as needed. - cholecalciferol (VITAMIN D3) 5,000 unit tab Take 5,000 Units by mouth once daily. - multivit-minerals/ferrous fum (MULTI VITAMIN ORAL) Take by mouth. - medroxyPROGESTERone (PROVERA, CYCRIN) 10 mg tablet TAKE 1 TABLET ONCE DAILY for TEN days A MONTH to start menses (Patient not taking: Reported on 02/02/2021) - VICTOZA 3-SAMUEL 0.6 mg/0.1 mL (18 mg/3 mL) Inject 1.8 MG (0.3 mL) SUBCUTANEOUSLY EVERY 24 HOURS (Patient not taking: Reported on 02/02/2021) - azithromycin (ZITHROMAX) 250 mg tablet TAKE 2 TABLETS today then TAKE 1 TABLET DAILY UNTIL GONE - benzonatate (TESSALON PERLE) 100 mg capsule - diphenhydramine HCl (BENADRYL ALLERGY ORAL) Take by mouth. No current facility-administered medications for this visit. REVIEW OF SYSTEMS PAIN ASSESSMENT: Negative for pain, history of chronic pain, or current treatment for a chronic pain condition. GENERAL: No weight loss, malaise or fevers NECK: Negative for lumps, goiter, pain and significant neck swelling RESPIRATORY: Negative for cough, hemoptysis, wheezing, COPD, dyspnea or shortness of breath CARDIOVASCULAR: Negative for chest pain, leg swelling, hypertension, CHF or palpitations GI: See HPI : No history of dysuria, frequency or incontinence MUSCULOSKELETAL: Negative for joint pain or swelling, back pain or muscle pain HEMATOLOGY/LYMPHOLOGY: Negative for prolonged bleeding, bruising easily or swollen nodes ENDOCRINE: Negative for cold or heat intolerance, polyuria, polydipsia and goiter PHYSICAL EXAM: BP 113/70 Pulse 66 Resp 18 Ht 5' 7 (1.70m) Wt 211 lb (95.7kg) BMI 33.04 kg/(m2). General Appearance: Well appearing, alert, in no acute distress, well-hydrated, well nourished. and Obese. Abdomen: Obese. Soft. No obvious abdominal wall hernia on exam. Her body habitus does make it difficult though. I do suspect she has a diastasis based on the exam. Assessment: Gastroesophageal reflux disease without esophagitis (primary encounter diagnosis) Diastasis recti Class 1 obesity due to excess calories with serious comorbidity and body mass index (bmi) of 33.0 to 33.9 in adult Plan: ASSESSMENT/PLAN: 1. Gastroesophageal reflux disease without esophagitis - ICD9: 530.81, ICD10: K21.9 (primary diagnosis) -Given her symptoms I did recommend a work-up to include an upper GI and EGD. In discussing it with her, she has elected not to proceed with any further evaluation regarding her GERD/hiatal hernia at this point in time. If her symptoms persist become worse she will call and we can reeva (more content not included)... [facility] Evaluation + Plan note No data available for this section [facility] Diagnosis Class 2 obesity with body mass index (BMI) of 35.0 to 35.9 in adult, unspecified obesity type, unspecified whether serious comorbidity present Primary hypertension Unspecified essential hypertension Controlled type 2 diabetes mellitus without complication, unspecified whether terminal superintendent insulin use (HCC) Hypothyroidism, unspecified type Back pain, unspecified back location, unspecified back pain laterality, unspecified chronicity [facility] Diagnosis Breast pain, left- Primary Mastodynia Incisional pain Disturbance of skin sensation documented in this encounter [facility] Summary Purpose Family History No Family History Records FoundNo Family History Records FoundNo Family History Records FoundNo Family History Records Found No data available for this section No Family History Records FoundNo Family History Records Found Advance Directives No Advanced Directives Records FoundNo Advanced Directives Records FoundNo Advanced Directives Records FoundNo Advanced Directives Records FoundNo Advanced Directives Records FoundNo Advanced Directives Records Found Additional Source Comments INFORMATION SOURCE (unrecogn ized section and content) DATE CREATED AUTHOR AUTHOR'S ORGANIZ ATION 09/26/2021 [facility] DATE CREATED AUTHOR AUTHOR'S ORGANIZ ATION 07/27/2022 [facility] DATE CREATED AUTHOR AUTHOR'S ORGANIZ ATION 01/20/2023 [facility] DATE CREATED AUTHOR AUTHOR'S ORGANIZ ATION 03/05/2023 [facility] ([place] DATE CREATED AUTHOR AUTHOR'S ORGANIZ ATION 04/05/2023 [facility] Source Comments (unrecognize d section and content) In the event this informatio n is protected by the Federal Confidentiality of Alcohol and Drug Abuse Patient Records regulations: The Federal rules restrict any use of the information to criminally investigate or prosecute any alcohol or drug abuse patient.[facility] the event this information is protected by the Federal Confidentiality of Alcohol and Drug Abuse Patient Records regulations: The Federal rules restrict any use of the information to criminally investigate or prosecute any alcohol or drug abuse patient.[facility] the event this information is protected by the Federal Confidentiality of Alcohol and Drug Abuse Patient Records regulations: The Federal rules restrict any use of the information to criminally investigate or prosecute any alcohol or drug abuse patient.[facility] Reason for Visit (unrecogniz ed section and content) Reason Comments Weight Management NEW Specialty Diagnoses / Procedures Referred By Rickey nathan Referred To Contact Bariatrics Diagnoses Class 2 obesity with body mass index (BMI) of 35.0 to 35.9 in adult, unspecified obesity type, unspecified whether serious comorbidity present Procedures SD OFFICE/OUTPATIENT NEW HIGH MDM 60-74 MINUTES Perla Izquierdo MD [address] [place] [address] [facility] [address] [place] [address] Referral ID Status Reason Start Date Expiration Date Visits Requested Visits Authorized [id number] Pending Review Specialty Services Required 08/28/2022 08/28/2023 1 1 Reason Onset Date Comments Financial File 10/25/2022 Financial File 2 023 Surgery Scheduling 10/25/2022 Initial sched uling-orders placed Reason Onset Date Comments refer to different DrJusto 12/20/2022 Reason Comments EGD EGD order Reason Comments Consult Lower abdominal pain / seen in [facility] ER 10/17/22 Reason Comments Request Outside Medical Records Care Team (unrecognized sect ion and content) Care Team Personnel Name: DAVIDA VASQUEZ, BARI Campos Member Role: Primary Care Physician Address: Address: [address] [place] [address] Name: SUMANTH LEON MD Position: ED Physician Member Role: ED Physician Address: Address: [facility] [address] [place] [id number] Name: Suman Carmona RN Position: AO RN Member Role: RN Care Teams (unrecognized sec tion and content) Director Of Religious Activities Relationship Specialty Start Date End Date HolliBari azevedo [address] [address] PCP - General Family Medicine 10/09/22 Cristian Rae MD [address] [place] [address] [place] [id number] [facility] Surgery 10/30/22 Director Of Religious Activities Relationship Specialty Start Date End Date Bari De La Garza [address] [address] PCP - General Family Medicine 10/09/22 Cristian Rae MD [address] [place] [address] [place] [id number] Surgeon General Surgery 10/30/22 Director Of Religious Activities Relationship Specialty Start Date End Date Holli Bari Nikki [address] [place] [address] PCP - General Family Medicine 10/09/22 Cristian Rae MD [address] [place] [address] [address] [place] [address] Surgeon General Surgery 10/30/22 Director Of Religious Activities Relationship Specialty Start Date End Date Bari De La Garza [address] [place] [phone] PCP - General Family Medicine 10/09/22 Cristian Rae MD [address] [place] [address] [address] [place], [place] [id number] Surgeon General Surgery 10/30/22 Director Of Religious Activities Relationship Specialty Start Date End Date Bari De La Garza [address] [place] [phone] PCP - General Family Medicine 10/09/22 Cristian Rae MD [address] [place] [address] [address] [place], [place] [id number] Surgeon General Surgery 10/30/22 FOR RECORDS PERTAINING TO PATIENTS WHO ARE OR HAVE BEEN ENROLLED IN A CHEMICAL DEPENDENCY/SUBSTANCEABUSE PROGRAM, SOME INFORMATION MAY BE OMITTED. This clinical summary was aggregated from multiple sources. Caution should be exercised in using it in the provision of clinical care. This summary normalizes information from multiple sources, and as a consequence, information in this document may materially change the coding, format and clinical context of patient data. In addition, data may be omitted in some cases. CLINICAL DECISIONS SHOULD BE BASED ON THE PRIMARY CLINICAL RECORDS. [facility] [employer] [facility]. provides no warranty or guarantee of the accuracy or completeness of information in this document.
== END | disposition home or self-care (01) ==
LOC: US 07:10
PROVIDERS: PCP Family Medicine; Referring Provider Nurse Practitioner Family; Visit Provider Nurse Practitioner Family
DX: R74.8 Abnormal levels of other serum enzymes (principal)
CPT/HCPCS: 76705

== ENCOUNTER → 2023-08-01 | Outpatient (CLI) | payer MEDICAID, SELFPAY ==
--- NOTE | 2023-08-01 07:27 | US_ITS ---
STUDY: SUPERFICIAL ULTRASOUND - PALPABLE LUMPS. REASON FOR EXAM: Female, 48 years old. Localized swelling, mass and lump, trunk -- low back/si joint lumps TECHNIQUE: A superficial ultrasound was performed with real-time and static lainez-scale imaging. COMPARISON: None. FINDINGS: The right than left side of the lower back was examined with ultrasound. No sonographic abnormality is seen. US/Ext Non Vasc Limited/Soft Tiss IMPRESSION: No sonographic abnormality is seen. Electronically Signed: Mulugeta Waddell MD at 9:20 EDT ,
== END | disposition home or self-care (01) ==
LOC: US 07:26
PROVIDERS: PCP Family Medicine; Referring Provider Family Medicine; Visit Provider Family Medicine
DX: R22.2 Localized swelling, mass and lump, trunk (principal)
CPT/HCPCS: 76882

== ENCOUNTER → 2023-08-22 | Outpatient (CLI) | payer MEDICAID, SELFPAY ==
[2023-08-22 14:36] LABS: Vitamin B12 696 pg/mL (211-911); Vitamin D,25 Hydroxy 71.4 ng/mL
== END | disposition home or self-care (01) ==
LOC: BFHLAB 09:07
PROVIDERS: PCP Family Medicine; Referring Provider Family Medicine; Visit Provider Family Medicine
DX: E55.9 Vitamin D deficiency, unspecified (principal); E53.8 Deficiency of other specified B group vitamins
CPT/HCPCS: 36415; 82306; 82607

== ENCOUNTER 2023-08-23 05:21 | Emergency (ER) | payer MEDICAID, SELFPAY ==
[2023-08-23 05:21] VITALS: BP 127/76; PULSE 79; RESP 18; TEMP 36.1; O2SAT 95; BMI 34.3
--- NOTE | 2023-08-23 05:54 | RAD_ITS ---
INDICATION: abd pain EXAMINATION/TECHNIQUE: X-RAY - XR Abdomen Series W/ Chest 1 View COMPARISON: None. FINDINGS: AP supine and upright views of the abdomen and upright view of the chest. 4 images total. The bowel gas pattern is normal. There is no bowel obstruction or free intraperitoneal air. No abnormal mass or calcification is seen. The lungs are clear. Cardiac silhouette is normal size. RAD/Acute Abdomen Inc Chest IMPRESSION: Negative chest and abdominal series. Electronically Signed: Kina Beatty MD at 7:25 EDT ,
[2023-08-23 06:45] LABS: Absolute Lymphocyte Count 2.59 X10^3/uL (0.83-4.51); Absolute Neutrophil Count 7.9 X10^3/uL (2.0-7.7); Basophil# 0.07 X10^3/uL; Basophil% 0.6 % (0-1); Eosinophil# 0.15 X10^3/uL; Eosinophils% 1.3 % (0-5); Lymphocyte # 2.59 X10^3/ul (0.83-4.51); Lymphocyte % 23.2 % (19-41); Mean Corp Hgb Conc 32.7 g/dL (32-36); Mean Corpuscular Hgb 29.7 pg (27.0-32.0); Mean Corpuscular Volume 90.9 fL (81-99); Mean Platelet Vol. 10.8 fl (6.2-12.0); Monocyte# 0.45 X10^3/uL; NRBC Flagged by Analyzer 0 % (0-5); Neutrophil # 7.87 X10^3/uL (2.7-7.7); Neutrophil % 70.5 % (47-70); Platelet Count 286 K/mm3 (150-450); RBC Distribution Width CV 12.9 % (11.6-14.6); RBC Distribution Width SD 42.8 fl (35.1-43.9); Red Blood Count 5.39 M/mm3 (4.2-5.4); White Blood Count 11.2 K/mm3 (4.4-11.0)
[2023-08-23 07:04] LABS: AST(SGOT) 23 U/L (15-37); Alanine Aminotransfer ALT/SGPT 28 U/L (13-56); Albumin, Serum 3.5 g/dL (3.2-5.0); Alkaline Phosphatase 101 U/L (45-117); Anion Gap 4 (5-15); BUN 13 mg/dL (7-18); BUN/Creat Ratio 17.6 RATIO (10-20); Bilirubin, Direct 0.13 mg/dL (0.00-0.30); Calcium,Total 9.1 mg/dL (8.5-10.1); Chloride 112 mmol/L (98-107); Creatinine, Serum 0.74 mg/dL (0.55-1.02); EST Glomerular Filtration Rate 89 mL/min (>60); Est Glom Filt Rate - Afr Amer 107 mL/min (>60); Estimated Creatinine Clearance 106.57 ml/min; Glucose 116 mg/dL (74-106); Lipase 60 U/L (13-75); Potassium 3.6 mmol/L (3.5-5.1); Protein, Total 7.5 g/dL (6.4-8.2); Sodium Level 139 mmol/L (136-145)
[2023-08-23 07:06] LABS: Internal QC Validated? YES +Cl - CLEAR BKGD; Pregnancy, Serum, hCG Quali. NEGATIVE Negative
[2023-08-23 07:21] VITALS: BP 131/79; PULSE 81; RESP 14; O2SAT 98
--- NOTE | 2023-08-23 07:37 | EDS_ITS ---
HPI History of Present Illness Chief Complaint: Abd Pain Informant: patient and spouse/S.O. Narrative Narrative: Patient is a 48-year-old female with past medical history of hypertension hyperlipidemia hypothyroidism and type 2 diabetes. She is currently on Mounjaro secondary to diabetes and weight loss. She states that in the last 24 hours she has had intermittent abdominal spasm and cramping. She states the pain will come on for no apparent reason last for a few minutes and then resolve. She states that she tried [id number] medication without any symptom improvement and secondary to this comes in for evaluation [facility] Medical History 2 vaginal deliveries Abrasion, left knee, initial encounter Anxiety Arthritis Arthritis Back pain Back problem Bite from insect Bone fracture Cardiac arrhythmia, unspecified Contusion of left knee Current every day smoker Former smoker GERD (gastroesophageal reflux disease) History of diverticulitis History of echocardiogram History of hiatal hernia History of migraine History of pain when walking History of stress test History of toxic effect of venomous spider bite History of ulceration Hyperlipemia Hypertension Hypothyroidism Injury of head and neck Polycystic ovarian disease Restless legs Seasonal allergies Type 2 diabetes mellitus Varicose veins of lower extremity Vitamin deficiency Wears contact lenses Wears dentures Home Medications ibuprofen 200 mg tablet 200 mg PO TID-QID PRN Pain 1-10 Or Fever 10/31/17 [History Last Taken Unknown] alprazolam 1 mg tablet 1 mg PO QDAY PRN Anxiety #30 tabs 09/24/19 [Rx Last Taken Unknown] pen needle, diabetic 32 gauge x 5/32 (BD Ultra-Fine Pennie Pen Needle) #100 ea 11/10/20 [Rx Last Taken Unknown] epinephrine 0.3 mg/0.3 mL injection, auto-injector (EpiPen 2-Magdi) 0.3 mg (0.3 mL) IM Q4H PRN anaphylaxis #2 ea 12/24/21 [Rx Last Taken Unknown] levothyroxine 137 mcg capsule 68.5 mcg PO DAILY 12/26/22 [History Last Taken Unknown] tirzepatide 2.5 mg/0.5 mL subcutaneous pen injector (Mounjaro) 2.5 mg (0.5 mL) subcut QWEEK 4 weeks #2 mL 04/26/23 [Rx Last Taken Unknown] atenolol 25 mg tablet 25 mg PO DAILY 07/30/23 [History Last Taken Unknown] medium chain triglycerides 7.7 kcal/mL oral oil 15 ml PO DAILY 07/30/23 [History Last Taken Unknown] dicyclomine 20 mg tablet 20 mg PO 4X/DAY PRN abdominal pain/spasm #28 tabs 08/23/23 [Rx Last Taken Unknown] promethazine 25 mg tablet 25 mg PO TID PRN nausea and vomiting #21 tabs 08/23/23 [Rx Last Taken Unknown] Allergy/AdvReac Type Severity Reaction Status Date / Time bee pollen Allergy Anaphylaxis Verified 08/23/23 05:25 ondansetron Allergy Hives Verified 08/23/23 05:25 [From Zofran (as hydrochloride)] prochlorperazine AdvReac Other Verified 08/23/23 05:25 [From Compazine] Family History Grandfather Cancer Alcohol abuse Father Anxiety Arthritis Myocardial infarction Hypertension Mother Heart disease Hypertension Son Asthma Diabetes Uncle Thyroid disorder Surgical History History of 2 sections History of esophagogastroduodenoscopy (EGD) History of tubal ligation S/P bilateral breast reduction Social History Smoking Status: Current every day smoker tobacco type: cigarettes alcohol intake: never substance use type: does not use what type of physical activity do you participate in: walking frequency: daily ROS ROS ED Constitutional Constitutional ED: Denies chills or fever(s) ENT ENT ED: Denies sore throat Cardiovascular Cardiovascular: Denies chest pain Respiratory/Chest Respiratory/Chest: Denies cough or dyspnea Gastrointestinal Gastrointestinal: Reports abdominal pain, constipation and nausea; Denies diarrhea or vomiting Genitourinary Genitourinary ED: Denies dysuria, hematuria or urinary frequency Musculoskeletal Musculoskeletal: Denies myalgias Integumentary Denies rash Neurologic Neurologic: Denies headache(s) Hematologic/Lymphatic Hematologic/Lymphatic: Denies easy bleeding or easy bruising EXAM Physical Exam Const Vital Signs: 08/23/23 05:21 08/23/23 07:21 08/23/23 08:03 Temperature 97 F L 97 F L Temperature Source Temporal Pulse Rate 79 81 81 Respiratory Rate 18 14 14 Blood Pressure 127/76 H 131/79 H 125/79 H Blood Pressure Mean 93 96 94 Pulse Ox 95 98 98 Oxygen Delivery Method Room Air Room Air Positive well nourished and well developed General Appearance ED: well developed; Negative for pallor HEENT Reports dry mucous membranes HEENT Narrative: Mucous membranes are mildly dry and tacky without tongue or lip swelling oral lesions airway edema or compromise No signs of infection noted in the posterior pharynx Mouth ED: Yes dry mucous membranes Mouth: dry mucous membranes Eyes PERRL and EOMs intact bilaterally General Eye ED: Negative for scleral icterus Neck supple Neck Narrative: No nuchal rigidity or meningeal signs noted Resp normal respiratory effort and clear to auscultation bilaterally Cardio regular rate and regular rhythm Rate: other Other Details: Heart is regular rate and rhythm without murmur rubs or gallops Radial and carotid pulses are equal and symmetric GI non-tender, non-distended and no masses GI Narrative: Abdomen is soft nontender nondistended with hypoactive bowel sounds No voluntary guarding or rigidity No pulsatile mass or fluid wave Negative Cortez sign Auscultation: hypoactive bowel sounds Palpation: soft Back/Spine no CVA tenderness Extremity normal to inspection Neuro oriented x3, CN's II-XII intact bilaterally and no sensory deficits noted Sensorium / Orientation: alert Motor Exam: strength 5/5 throughout Psych mental status grossly normal Skin no rashes or lesions noted and no wounds General Skin Exam: Negative for jaundice or pallor MDM MDM MDM Narrative Medical decision making narrative: Patient arrived to the ER with stable vitals and a soft nonsurgical abdomen. She reported intermittent spasm over the last 24 hours that was not improving with [id number]-[id number] medication. Differential diagnosis is for intestinal spasm secondary to constipation versus biliary colic versus acute cholecystitis versus pancreatitis versus gastroparesis. Patient blood work was obtained as well as an acute abdominal x-ray. I do not feel the need for CT scan as her vitals are stable and her abdomen was soft and nonsurgical. Labs revealed no clinically significant findings and x-ray also revealed no signs of obstruction or perforation. Patient reported improvement of symptoms spontaneously without any of the medication which was ordered. On reevaluation abdomen remains soft and nonsurgical and therefore at this time with overall negative workup and spontaneous improvement of symptoms I do not feel there is need for further evaluation and she is otherwise safe for discharge History & Record Review Discussion w/independent historian: Patient and Significant other Lab Data Attestation: I reviewed the patient's lab results. Labs: Laboratory Results - last 24 hr 08/23/23 06:29 WBC 11.2 H RBC 5.39 Hgb 16.0 H Hct 49.0 H MCV 90.9 MCH 29.7 MCHC 32.7 RDW Std Deviation 42.8 RDW Coeff of Rashmi 12.9 Plt Count 286 MPV 10.8 Immature Gran % (Auto) 0.400 Neut % (Auto) 70.5 H Lymph % (Auto) 23.2 [place] % (Auto) 4.0 Eos % (Auto) 1.3 Baso % (Auto) 0.6 Absolute Neuts (auto) 7.9 H Absolute Lymphs (auto) 2.59 Nucleated RBC % 0 Sodium 139 Potassium 3.6 Chloride 112 H Carbon Dioxide 23.0 Anion Gap 4 L BUN 13 Creatinine 0.74 Estim Creat Clear Calc 106.57 Est GFR (MDRD) Af Amer 107 Est GFR (MDRD) Non-Af 89 BUN/Creatinine Ratio 17.6 Glucose 116 H Calcium 9.1 Total Bilirubin 0.40 Direct Bilirubin 0.13 AST 23 ALT 28 Alkaline Phosphatase 101 Total Protein 7.5 Albumin 3.5 Globulin 4.0 Lipase 60 Serum , Qual NEGATIVE Radiography Diagnostic Testing: Clinical Impression(s) from Imaging Studies Acute Abdomen Series 08/23/23 05:54 IMPRESSION: Negative chest and abdominal series. Electronically Signed: Kina Beatty MD at 7:25 EDT , Acute abdominal series with 1 view chest as interpreted by the emergency medicine physician reveals nonspecific nonobstructive bowel gas pattern and chest x-ray component reveals no acute infiltrate pneumothorax or pleural effusion Discharge Plan Triage Chief Complaint: Abd Pain ED Provider: Rik Landa Dx/Rx/DC Orders Clinical Impression: Nonspecific abdominal pain, Hyperlipemia, Hypothyroidism, Hypertension Instructions: Abdominal Pain, ED Abdominal Pain Unkn Cause Fem Prescriptions: New promethazine 25 mg tablet 25 mg PO TID PRN (Reason: nausea and vomiting) Qty: 21 0RF dicyclomine 20 mg tablet 20 mg PO 4X/DAY PRN (Reason: abdominal pain/spasm) Qty: 28 0RF No Action ibuprofen 200 mg tablet 200 mg PO TID-QID PRN (Reason: Pain 1-10 Or Fever) levothyroxine 137 mcg capsule 68.5 mcg PO DAILY Mounjaro 2.5 mg/0.5 mL pen injector 2.5 mg subcut QWEEK 28 Days Qty: 2 2RF medium chain triglycerides 7.7 kcal/mL oil 15 ml PO DAILY atenolol 25 mg tablet 25 mg PO DAILY Rx Instructions: TAKE ONE TABLET BY MOUTH EVERY DAY epinephrine [EpiPen 2-Magdi] 0.3 mg/0.3 mL auto-injector 0.3 mg IM Q4H PRN (Reason: anaphylaxis) Qty: 2 0RF alprazolam 1 mg tablet 1 mg PO QDAY PRN (Reason: Anxiety) Qty: 30 0RF (DME) pen needle, diabetic [BD Ultra-Fine Pennie Pen Needle] 32 gauge x 5/32 needle See Rx Instructions .ROUTE .MEDSUPPLY Qty: 100 3RF Rx Instructions: daily Primary Care Provider: Ismael De La Garza Referrals: Ismael De La Garza DO [Primary Care Provider] - Activity Restrictions/Additional Instructions: Your workup did not show any clinically significant findings indicating symptoms are most likely related to adverse effects from Mounjaro. Continue home medications as directed by your doctor and add the Phenergan for nausea control and the Bentyl for abdominal pain or spasm. If you have any further concerns or worsening of symptoms please return for repeat evaluation Disposition Disposition: Home, Self Care Discharge Date/Time: 08/23/23 08:07
[2023-08-23 08:03] VITALS: BP 125/79; PULSE 81; RESP 14; TEMP 36.1; O2SAT 98
== END 2023-08-23 08:07 | disposition home or self-care (01) ==
PROVIDERS: Emergency Provider Emergency Medicine; PCP Family Medicine; Visit Provider Emergency Medicine
DX: R10.9 Unspecified abdominal pain (principal); E11.9 Type 2 diabetes mellitus without complications; I10 Essential (primary) hypertension; E03.9 Hypothyroidism, unspecified; F17.210 Nicotine dependence, cigarettes, uncomplicated; E78.5 Hyperlipidemia, unspecified; Z79.85 Long-term (current) use of injectable non-insulin antidiabetic drugs
CPT/HCPCS: 36415; 74022; 80048; 80076; 83690; 84703; 85025; 99282

== ENCOUNTER → 2023-08-29 | Outpatient (CLI) | payer MEDICAID, SELFPAY ==
[2023-08-29 13:55] LABS: T4 Free Direct 1.15 ng/dL (0.76-1.46); Thyroid Stim Hormone (TSH) 4.09 uIU/mL (0.358-3.74)
== END | disposition home or self-care (01) ==
LOC: BFHLAB 10:33
PROVIDERS: PCP Family Medicine; Referring Provider Family Medicine; Visit Provider Family Medicine
DX: E03.9 Hypothyroidism, unspecified (principal)
CPT/HCPCS: 36415; 84439; 84443

== ENCOUNTER → 2023-09-03 | Outpatient (CLI) | payer MEDICAID, SELFPAY ==
--- NOTE | 2023-09-10 12:17 | STRESSREP_ITS ---
Stress Test Report Date: 09/03/2023 Procedure: Exercise tolerance test Indications: Chest pain Consent: Per the patient Procedure: The patient exercised on a Willy protocol for 7 minutes and 31 seconds achieving a peak heart rate of 141 bpm (82% predicted maximal heart rate) with a peak blood pressure 152/80 mmHg and a peak MET capacity of approximately 10.1 MET's. The baseline ECG demonstrated normal sinus rhythm. The peak exercise ECG demonstrated no significant ischemic changes. [There were no cardiac dysrhythmias pretest, during exercise, or recovery]. The functional capacity was considered normal for age. The patient had no complaint of chest discomfort during exercise or recovery. The examination was discontinued secondary to dyspnea. Impression: 1. Inability to achieve 85% of maximal age-predicted heart rate decreases the sensitivity of this test 2. Stress test is negative for exercise-induced chest pain. 3. Stress test test is negative for exercise-induced EKG changes of ischemia. 4. Functional capacity is normal for age This note was generated with [employer] software. It may contain incorrect words, spelling, and punctuation that were not noted in checking the note before signing.
== END | disposition home or self-care (01) ==
PROVIDERS: PCP Family Medicine; Referring Provider Family Medicine; Visit Provider Family Medicine
DX: R07.9 Chest pain, unspecified (principal); E11.9 Type 2 diabetes mellitus without complications; I25.10 Atherosclerotic heart disease of native coronary artery without angina pectoris
CPT/HCPCS: 93017

== ENCOUNTER → 2023-10-26 | Outpatient (CLI) | payer MEDICAID, SELFPAY ==
[2023-10-26 10:13] LABS: Absolute Lymphocyte Count 3.79 X10^3/uL (0.83-4.51); Absolute Neutrophil Count 6.8 X10^3/uL (2.0-7.7); Basophil# 0.09 X10^3/uL; Basophil% 0.8 % (0-1); Eosinophil# 0.21 X10^3/uL; Eosinophils% 1.8 % (0-5); Hematocrit 48.5 % (37-47); Hemoglobin 15.7 g/dL (12.0-15.0); Lymphocyte # 3.79 X10^3/ul (0.83-4.51); Mean Corp Hgb Conc 32.4 g/dL (32-36); Mean Corpuscular Hgb 29.5 pg (27.0-32.0); Mean Platelet Vol. 10.7 fl (6.2-12.0); Monocyte# 0.55 X10^3/uL; Monocyte% 4.8 % (0-10); NRBC Flagged by Analyzer 0 % (0-5); Neutrophil # 6.78 X10^3/uL (2.7-7.7); Neutrophil % 59.2 % (47-70); Platelet Count 290 K/mm3 (150-450); RBC Distribution Width CV 13.5 % (11.6-14.6); RBC Distribution Width SD 45.4 fl (35.1-43.9); Red Blood Count 5.33 M/mm3 (4.2-5.4); White Blood Count 11.5 K/mm3 (4.4-11.0)
[2023-10-26 10:46] LABS: Microalbumin,Random Urine < 5.0 mg/L (NO RANGE EST.)
[2023-10-26 10:58] LABS: Vitamin B12 661 pg/mL (211-911); Vitamin D,25 Hydroxy 44.1 ng/mL
[2023-10-26 11:07] LABS: ALB/GLOB Ratio 0.9 RATIO (0.9-2.4); AST(SGOT) 21 U/L (15-37); Alanine Aminotransfer ALT/SGPT 22 U/L (13-56); Albumin, Serum 3.5 g/dL (3.2-5.0); Alkaline Phosphatase 103 U/L (45-117); Anion Gap 3 (5-15); BUN 16 mg/dL (7-18); Calcium,Total 9.2 mg/dL (8.5-10.1); Chloride 108 mmol/L (98-107); EST Glomerular Filtration Rate 62 mL/min (>60); Est Glom Filt Rate - Afr Amer 75 mL/min (>60); Glucose 95 mg/dL (74-106); Potassium 4.2 mmol/L (3.5-5.1); Protein, Total 7.5 g/dL (6.4-8.2); Sodium Level 138 mmol/L (136-145); T4 Free Direct 1.16 ng/dL (0.76-1.46); Thyroid Stim Hormone (TSH) 4.44 uIU/mL (0.358-3.74)
[2023-10-26 23:45] LABS: Hemoglobin A1c 5.6 % (3.8-5.6)
[2023-10-27 07:59] LABS: Cholesterol 193 mg/dL (200); High Density Lipoprotein 41 mg/dL; Triglycerides 152 mg/dL; Very Low Density Lipoprotein 30 mg/dL (5-40)
== END | disposition home or self-care (01) ==
PROVIDERS: PCP Family Medicine; Referring Provider Family Medicine; Visit Provider Family Medicine
DX: E11.9 Type 2 diabetes mellitus without complications (principal); I25.10 Atherosclerotic heart disease of native coronary artery without angina pectoris; E03.9 Hypothyroidism, unspecified; E55.9 Vitamin D deficiency, unspecified; E53.8 Deficiency of other specified B group vitamins
CPT/HCPCS: 36415; 80053; 80061; 82043; 82306; 82570; 82607; 83036; 84439; 84443; 85025

== ENCOUNTER → 2023-11-13 | Outpatient (CLI) | payer MEDICAID, SELFPAY ==
--- NOTE | 2023-11-13 07:26 | BI_ITS ---
MAMMOGRAPHY - BILATERAL SCREENING REASON FOR EXAM: Female, 48 years old. Routine annual screening examination. PERTINENT HISTORY: History of prior bilateral breast reduction surgery. TECHNIQUE: Digital bilateral breast fidel (3D mammographic acquisition) in the CC and MLO projections. 2-D mediolateral oblique (MLO) and craniocaudad (CC) views of both breasts were obtained. CAD: Full Field Digital Mammography with Computer Added Detection was performed. COMPARISON: Comparison made with prior study dated August 09, 2022 and September 01, 2020. FINDINGS: Breast Composition: There are scattered areas of fibroglandular density. There are no dominant masses or suspicious calcifications. The patient is status post bilateral breast reduction. Focal asymmetry of glandular tissue is seen in the upper central portion of the left breast as compared to the right side. Stable small benign-appearing bilateral axillary lymph nodes. No other significant abnormalities are identified. There has been no significant change since the prior study. BI/SCRN MAMM (CAD)W/FIDEL BILAT IMPRESSION: Stable bilateral screening mammogram. Yearly follow-up mammogram recommended. (A) ASSESSMENT CATEGORY: BIRADS Category 2: Benign. A letter regarding these results will be sent to the patient by the facility within 30 days. Approximately 10% of breast cancers are not detected by mammography. A normal mammogram should not delay biopsy of a clinically suspicious abnormality. [id number] Electronically Signed: Mulugeta Waddell MD at 10:04 EDT ,
== END | disposition home or self-care (01) ==
LOC: OPBI 07:25
PROVIDERS: PCP Family Medicine; Referring Provider Family Medicine; Visit Provider Family Medicine
DX: Z12.31 Encounter for screening mammogram for malignant neoplasm of breast (principal)
CPT/HCPCS: 77063; 77067

== ENCOUNTER → 2023-12-18 | Outpatient (CLI) | payer MEDICAID, SELFPAY ==
[2023-12-18 10:24] LABS: ALB/GLOB Ratio 0.9 RATIO (0.9-2.4); AST(SGOT) 17 U/L (15-37); Alanine Aminotransfer ALT/SGPT 25 U/L (13-56); Albumin, Serum 3.5 g/dL (3.2-5.0); Alkaline Phosphatase 101 U/L (45-117); Anion Gap 5 (5-15); BUN 15 mg/dL (7-18); Calcium,Total 9.6 mg/dL (8.5-10.1); Chloride 107 mmol/L (98-107); Cholesterol 196 mg/dL (200); EST Glomerular Filtration Rate 62 mL/min (>60); Est Glom Filt Rate - Afr Amer 75 mL/min (>60); Globulin 4.1 g/dL (2.2-4.2); Glucose 100 mg/dL (74-106); High Density Lipoprotein 37 mg/dL; Protein, Total 7.6 g/dL (6.4-8.2); Sodium Level 140 mmol/L (136-145); Triglycerides 273 mg/dL; Very Low Density Lipoprotein 55 mg/dL (5-40)
== END | disposition home or self-care (01) ==
LOC: MTLAB 07:02
PROVIDERS: PCP Family Medicine; Referring Provider Internal Medicine Cardiovascular Disease; Visit Provider Internal Medicine Cardiovascular Disease
DX: E11.65 Type 2 diabetes mellitus with hyperglycemia (principal); I10 Essential (primary) hypertension; K75.81 Nonalcoholic steatohepatitis (NASH)
CPT/HCPCS: 36415; 80053; 80061

== ENCOUNTER → 2023-12-19 | Outpatient (CLI) | payer MEDICAID, SELFPAY | END | disposition home or self-care (01) | LOC: MTLAB 11:43 | PROVIDERS: PCP Family Medicine; Referring Provider Internal Medicine Cardiovascular Disease; Visit Provider Internal Medicine Cardiovascular Disease | DX: E03.9 Hypothyroidism, unspecified (principal); R73.9 Hyperglycemia, unspecified | CPT/HCPCS: 36415; 82533; 84439; 84443 ==

== ENCOUNTER → 2023-12-20 | Outpatient (CLI) | payer MEDICAID, SELFPAY | END | disposition home or self-care (01) | PROVIDERS: PCP Family Medicine; Referring Provider Family Medicine; Visit Provider Family Medicine | DX: E03.9 Hypothyroidism, unspecified (principal); R73.9 Hyperglycemia, unspecified ==

== ENCOUNTER → 2024-01-17 | Outpatient (CLI) | payer MEDICAID, SELFPAY ==
--- NOTE | 2024-01-17 09:28 | RAD_ITS ---
STUDY: X-RAY CHEST REASON FOR EXAM: Female, 48 years old. COUGH TECHNIQUE: PA and lateral views of the chest. COMPARISON: 08/23/2023 FINDINGS: The lungs are clear and expanded. There is no demonstrated pleural abnormality. Normal size heart. Normal mediastinum and morgan. Normal visualized pulmonary arteries. Normal visualized aortic arch and descending thoracic aorta. Normal visualized thoracic spine. Normal visualized ribs, clavicles, and shoulders. There is no demonstrated abnormality of the visualized soft tissue structures of the upper abdomen. RAD/Chest PA and Lateral IMPRESSION: Normal x-ray examination of the chest. Electronically Signed: All Keith MD at 9:07 EDT ,
[2024-01-17 12:16] LABS: Absolute Lymphocyte Count 1.97 X10^3/uL (0.83-4.51); Absolute Neutrophil Count 6.2 X10^3/uL (2.0-7.7); Basophil# 0.08 X10^3/uL; Basophil% 0.9 % (0-1); Eosinophil# 0.24 X10^3/uL; Eosinophils% 2.6 % (0-5); Hematocrit 45.6 % (37-47); Hemoglobin 15.2 g/dL (12.0-15.0); Lymphocyte # 1.97 X10^3/ul (0.83-4.51); Lymphocyte % 21.7 % (19-41); Mean Corp Hgb Conc 33.3 g/dL (32-36); Mean Corpuscular Volume 90.1 fL (81-99); Mean Platelet Vol. 10.5 fl (6.2-12.0); Monocyte# 0.56 X10^3/uL; Monocyte% 6.2 % (0-10); NRBC Flagged by Analyzer 0 % (0-5); Neutrophil # 6.22 X10^3/uL (2.7-7.7); Neutrophil % 68.4 % (47-70); Platelet Count 249 K/mm3 (150-450); RBC Distribution Width CV 12.8 % (11.6-14.6); RBC Distribution Width SD 42.6 fl (35.1-43.9); Red Blood Count 5.06 M/mm3 (4.2-5.4); White Blood Count 9.1 K/mm3 (4.4-11.0)
== END | disposition home or self-care (01) ==
LOC: MTLAB 09:27
PROVIDERS: PCP Family Medicine; Referring Provider Family Medicine; Visit Provider Family Medicine
DX: R05.9 Cough, unspecified (principal)
CPT/HCPCS: 36415; 71046; 85025

== ENCOUNTER → 2024-03-05 | Outpatient (CLI) | payer MEDICAID, SELFPAY ==
[2024-03-05 15:03] LABS: Vitamin B12 608 pg/mL (211-911)
== END | disposition home or self-care (01) ==
LOC: MTLAB 12:30
PROVIDERS: PCP Family Medicine; Referring Provider Family Medicine; Visit Provider Family Medicine
DX: E55.9 Vitamin D deficiency, unspecified (principal); E53.8 Deficiency of other specified B group vitamins
CPT/HCPCS: 36415; 82306; 82607

== ENCOUNTER → 2024-04-28 | Outpatient (CLI) | payer MEDICAID, SELFPAY ==
[2024-04-28 16:31] LABS: T4 Free Direct 1.23 ng/dL (0.76-1.46)
[2024-04-28 16:40] LABS: Hemoglobin A1c 5.8 % (3.8-5.6)
== END | disposition home or self-care (01) ==
PROVIDERS: PCP Family Medicine; Visit Provider Family Medicine
DX: E11.9 Type 2 diabetes mellitus without complications (principal); E03.9 Hypothyroidism, unspecified
CPT/HCPCS: 36415; 83036; 84439; 84443

== ENCOUNTER → 2024-05-23 | Outpatient (CLI) | payer MEDICAID, SELFPAY ==
--- NOTE | 2024-05-23 14:00 | RAD_ITS ---
EXAM: XR Chest, 2 Views CLINICAL INDICATION: TECHNIQUE: Frontal and lateral views of the chest. COMPARISON: No relevant prior studies available. FINDINGS: LUNGS AND PLEURAL SPACES: Unremarkable. No consolidation. No pneumothorax. HEART: Unremarkable. No cardiomegaly. MEDIASTINUM: Unremarkable. Normal mediastinal contour. BONES/JOINTS: Unremarkable. No acute fracture. RAD/Chest PA and Lateral IMPRESSION: No acute cardiopulmonary process. Reading [facility]
== END | disposition home or self-care (01) ==
LOC: MTRAD 13:59
PROVIDERS: PCP Family Medicine; Referring Provider Family Medicine; Visit Provider Family Medicine
DX: R05.9 Cough, unspecified (principal); R07.9 Chest pain, unspecified
CPT/HCPCS: 71046

== ENCOUNTER → 2024-10-22 | Outpatient (CLI) | payer MEDICAID, SELFPAY ==
[2024-10-22 12:10] LABS: AST(SGOT) 17 U/L (<=31); Alanine Aminotransfer ALT/SGPT 11 U/L (<=34); Albumin, Serum 4.3 g/dL (3.5-5.0); Alkaline Phosphatase 103 U/L (35-104); Anion Gap 12 (5-15); BUN 12 mg/dL (4-19); BUN/Creat Ratio 14.2 RATIO (10-20); Calcium,Total 9.7 mg/dL (7.6-11.0); Carbon Dioxide 25.4 mmol/L (21.0-32.0); Chloride 103 mmol/L (98-108); Cholesterol 203 mg/dL (<=200); Globulin 3.3 g/dL (2.2-4.2); Glucose 99 mg/dL (70-99); Low Density Lipoprotein Calc. 121 mg/dL; Potassium 3.9 mmol/L (3.3-5.1); Triglycerides 199 mg/dL; Very Low Density Lipoprotein 40 mg/dL (5-40); Vitamin B12 626 pg/mL (180-914); Vitamin D,25 Hydroxy 45.9 ng/mL (30-100); cholesterol:hdl ratio screen 4.81
== END | disposition home or self-care (01) ==
LOC: MTLAB 08:52
PROVIDERS: PCP Family Medicine; Referring Provider Family Medicine; Visit Provider Family Medicine
DX: E11.9 Type 2 diabetes mellitus without complications (principal); I10 Essential (primary) hypertension; E03.9 Hypothyroidism, unspecified; E53.8 Deficiency of other specified B group vitamins; E55.9 Vitamin D deficiency, unspecified
CPT/HCPCS: 36415; 80053; 80061; 82306; 82607; 83036; 84439; 84443

== ENCOUNTER → 2025-03-18 | Outpatient (CLI) | payer MEDICAID, SELFPAY ==
[2025-03-18 13:12] LABS: AST(SGOT) 17 U/L (<=31); Alanine Aminotransfer ALT/SGPT 15 U/L (<=34); Albumin, Serum 4.2 g/dL (3.5-5.0); Alkaline Phosphatase 92 U/L (35-104); Anion Gap 13 (5-15); BUN 11 mg/dL (4-19); BUN/Creat Ratio 13.2 RATIO (10-20); Calcium,Total 9.8 mg/dL (7.6-11.0); Carbon Dioxide 21.5 mmol/L (21.0-32.0); Chloride 104 mmol/L (98-108); Cholesterol 199 mg/dL (<=200); Globulin 3.3 g/dL (2.2-4.2); Glucose 119 mg/dL (70-99); Low Density Lipoprotein Calc. 123 mg/dL; Potassium 3.8 mmol/L (3.3-5.1); Triglycerides 185 mg/dL; Very Low Density Lipoprotein 37 mg/dL (5-40); Vitamin B12 602 pg/mL (180-914); Vitamin D,25 Hydroxy 42.8 ng/mL (30-100); cholesterol:hdl ratio screen 4.65
[2025-03-18 13:24] LABS: Microalbumin,Random Urine < 12.0 mg/L (<20 mg/L)
[2025-03-18 19:14] LABS: FOLATES,SERUM (FOLIC ACID) 2.94 ng/mL (4.60-34.80)
[2025-03-19 08:09] LABS: HOMOCYSTEINE 11.4 umol/L (0.0-14.5)
== END | disposition home or self-care (01) ==
LOC: LAB.FUTURE 09:57 → BFHLAB 10:05
PROVIDERS: PCP Family Medicine; Referring Provider Family Medicine; Visit Provider Family Medicine
DX: E11.9 Type 2 diabetes mellitus without complications (principal); I10 Essential (primary) hypertension; E53.8 Deficiency of other specified B group vitamins; Z15.89 Genetic susceptibility to other disease
CPT/HCPCS: 36415; 80053; 80061; 82043; 82306; 82607; 82746; 83036; 83090; 84443

== ENCOUNTER → 2025-03-25 | Outpatient (CLI) | payer MEDICAID, SELFPAY ==
--- OUTSIDE RECORDS SUMMARY | 2025-03-25 07:15 | XMS RPT_ITS | CCD ---
Author Organization [facility] Informat ion Partnership [facility] Care Team Providers Care Purchasing/Receiving Name Role Phone DAVIDA VASQUEZ, BARI Campos Primary Care Physician Unavailable Primary Care Provider Nu HIGUERA MD, BARI Campos Primary Care Physician BARI DESAI Primary Care Unavailable HAM VASQUEZ, RAYMUNDO Agee Admitting Unavailleandro CHEEK MD, RAYMUNDO Agee Attending Unavailleandro CHEEK MD, RAYMUNDO Agee Admitting UnavailBARI Arzola Primary Care Unavailable HAM VASQUEZ, RAYMUNDO Agee Attending Unavailleandro RODGERS, HUNTER Attending Unavailable BARI DESAI Primary Care Unavailable HUNTER DIAMOND DO Admitting Unavailable VALDEMAR GARCIA, VANESSA Agee Admitting UnavailBARI Arzola Primary Care Unavailable VALDEMAR GARCIA, VANESSA Agee Attending UnavailBARI Arzola Primary Care Unavailable HAM VASQUEZ, RAYMUNDO Agee Admitting Unavailleandro CHEEK MD, RAYMUNDO Agee Attending UnavailBARI Arzola Primary Care Unavailable TARI ASHRAF CRNA Consulting Unavailable HAM VASQUEZ, RAYMUNDO Agee Admitting Unavailleandro CHEEK MD, RAYMUNDO Agee Attending BARI Leyva DO Consulting Unavailable Dr. Bari Desai Primary Care Provider Dr. Bari Desai Referring Provider Paulino RN MDS, RN MDS-C Ethel Agee Attending Provider [phone] Dr. Cedric Roy Attending Provider FriendDr. Steele Other Provider Dr. Bari Desai Primary Care Provider [phone] Dr. Bari Desai Referring Provider DOLLY Bob NP Attending Provider [phone] Bari Desai Primary Care Provider Cristian Rae MD Unavailable Dr. Bari Desai Primary Care Provider [phone] Dr. Bari Desai Referring Provider Moon VALDES PA Rubio Agee Attending Provider Dr. Bari Desai Primary Care Provider Dr. Bari Desai Referring Provider KEISHA Sanchez Attending Provider DOLLY Ambrose Attending Provider LOIS BARAJAS Attending Unavailable BARI DESAI Primary Care Unavailable CRISTIAN RAE Attending Unavailable PIPO IZQUIERDO Referring Unavailable BARI DESAI Primary Care Unavailable CRISTIAN RAE Attending Unavailable BARI DESAI Primary Care Unavailable LOIS BARAJAS Attending Unavailable BARI DESAI Primary Care Unavailable PIPO IZQUIERDO Attending Unavailable Dr. Bari Desai Primary Care Provider [phone] Bari Desai Referring Provider DOLLY Ambrose Attending Provider DR DICK FONTAINE DO Attending Unavailable DAVIDA VASQUEZ, BARI Campos Primary Care Unavailable LICHA VASQUEZ, DR HALEY Neff Attending Sue HIGUERA MD, BARI Campos Primary Care Unavailable ARUN VASQUEZ, DR MEJIA Attending Unavailleandro DESAI DO, DR BARI Jordan Primary Care Unavailab amparo DESAI DO, DR BARI Jordan Primary Care Physician [phone] Unavailable Primary Care Provider UnavailBari Arzola DO Primary Care Provider MARISSA DAVIES Attending Unavailable REFERRAL, SELF Referring Unavailable No Family, Physician Primary Care Unavailable MARISSA DAVIES Attending Unavailable No Family, Physician Primary Care Unavailable MARISSA DAVIES Attending Unavailable REFERRAL, SELF Referring Unavailable No Family, Physician Primary Care Unavailable JOHN PITTMAN JR Admitting Unavailable JOHN PITTMAN JR Attending Unavailable JOHN PITTMAN JR Primary Care Unavailable GISELLE, BARI A Consulting Unavailable PROVIDER, UNKNOWN Consulting Unavailable Giselle FENG, Dr. Guevara Primary Care Provider Giselle FENG, Dr. Guevara Referring Provider [phone] Rubio Garduno Attending Provider Giselle FENG, Dr. Guevara Attending Provider Bari Desai Primary Care Provider Giselle FENG, Dr. Guevara Primary Care Physician Giselle FENG, Dr. Guevara Attending Physician Giselle FENG, Dr. Guevara Referring Provider Rubio Garduno Attending Physician Altagracia Ambrose Attending Unavailable Giselle, Bari Primary Care Unavailable Melissa Ashley Attending Unavail able Giselle, Bari Primary Care Unavailable Giselle, Bari Referring Unavailable Giselle, Bari Primary Care Unavailable Rubio Garduno Attending Unavailable Giselle, Bari Referring Unavailable Rubio Garduno Attending Unavailable Giselle, Bari Primary Care Unavailable Giselle, Bari Referring Unavailable Giselle, Bari Primary Care Unavailable Giselle, Bari Attending Unavailable Giselle, Bari Referring Unavailable Giselle, Bari Primary Care Unavailable Giselle, Bari Attending Unavailable Giselle, Bari Primary Care Unavailable Giselle, Bari Attending Unavailable Giselle, Bari Referring Unavailable Giselle, Bari Primary Care Unavailable Giselle, Bari Attending Unavailable Giselle, Bari Primary Care Unavailable Giselle, Bari Attending Unavailable Giselle, Bari Referring Unavailable Giselle, Bari Referring Unavailable Giselle, Bari Attending Unavailable Giselle, Bari Primary Care Unavailable LAINE COLON Attending Unavail able MIHAELA DOW Attending Unavailable HUYEN HUGGINS Referring Unavailable GISELLE, BARI A Primary Care Unavailable MIHAELA DOW Referring Unavailable TRAN SAUNDERS Attending Unavailable GISELLE, BARI A Primary Care Unavailable SALVATORE RODRIGUES Attending U MIHAELA Mcclellan Referring Unavailable BARI DESAI Primary Care Unavailable TRAN SAUNDERS Attending Unavailable BARI DESAI Primary Care Unavailable PERRY PERSAUD Attending Unavailable PERRY PERSAUD Referring Unavailable Allergies Allergy Classification Reported Allergen(s) Allergy Type Date of Onset Reaction(s) Facility (20 sources) Ondansetron; Translations: [ondansetron] Drug Allergy 10-12-19 18 Hives, Nausea And Vomiting, Rash [facility] (16 sources) Bee pollen Drug Allergy 12-25-19 22 Hives, Anaphylaxis [facility] (14 sources) Ondansetron; Translations: [ONDANSETRON HCL (PF)] Drug Allergy 10-12-19 18 Rash [facility] (1 source) Ondansetron Drug Allergy [facility] (20 sources) Bee pollen Allergy to substance 12-25-19 22 Anaphylaxis, [facility] (13 sources) Bee Venom Protein (Honey Bee); Translations: [BEE VENOM PROTEIN (HONEY BEE)] Drug Allergy 01-17-20 23 Anaphylaxis [facility] (20 sources) Prochlorperazine; Translations: [prochlorperazine] Drug Allergy 06-15-19 24 Anxiety, Mental Status Change, Other: See Comments [facility] Comment on above: Extreme nervousness (9 sources) Adhesive Tape; Translations: [ADHESIVE TAPE (ROSINS)] Allergy to substance 01-23-20 24 Itching [facility] (3 sources) Adhesive Tape; Translations: [adhesive tape] Propensity to adverse reactions 01-23-20 24 Rash [facility] (2 sources) Latex Propensity to adverse reactions 01-23-20 24 Hives [facility] (1 source) Bee pollen Drug allergy (disorder) 01-22-20 25 [facility] (1 source) Latex Drug allergy (disorder) 01-22-20 [facility] (1 source) Ondansetron Drug Allergy 01-22-20 [facility] (1 source) Prochlorperazine Drug Allergy 01-22-20 [facility] Medications Current Medications Medication Drug Class(es) Dates Sig (Normalized) Sig (Original) 0.5 ML tirzepatide 10 MG/ML Auto-Injector [Mounjaro] (1 source) Start: 01-16-2024 inject 1 dose by subcutaneous injection every week Mounjaro 5 mg/0.5 mL subcutaneous solution Dose : 5 mg =, Subcutaneous, qWeek, rotate injection sites, # 4 EA, 0 Refill(s) Start Date: 01/16/24 Status: Ordered acetaminophen 325 mg / butalbital 50 mg / caffeine 40 mg oral tablet (19 sources) Barbiturate, Central Nervous System Stimulant, Methylxanthine Start: 05-31-2022 End: 06-03-2022 take 1 tablet by mouth every four hours as needed APAP/butalbital/c affeine 325-50-40 mg oral tablet (Fioricet) Dose = 1 tab(s), Oral, q4h, PRN as needed, X 3 day(s), # 18 tab(s), 0 Refill(s) Start Date: 05/31/22 Stop Date: 06/03/22 Status: Ordered Start: 04-15-2019 End: 04-15-2019 Xgsafbogbf-Pbftexsxwwgbm-Wrt f 50-325-40 mg tablet Discontinued {tbl} PO April 15, 2019 1:00am April 15, 2019 3:34pm TAKE 2 TABLETS AT ONSET OF MIGRAINE THEN TAKE 1 TABLET EVERY 4 HOURS NEEDED Start: 04-15-2019 End: 04-15-2019 Gggkykokyn-Yhwxbzwfpzmch-Dst f Discontinued TABLET PO April 15, 2019 1:00am April 15, 2019 3:34pm TAKE 2 TABLETS AT ONSET OF MIGRAINE THEN TAKE 1 TABLET EVERY 4 HOURS NEEDED [id number] 200 actuat albuterol 0.09 mg/actuat metered dose inhaler (20 sources) beta2-Adrenergic Agonist Start: 01-06-2024 Albut nellie Sulfate 90 mcg/actuation HFA aerosol inhaler Active 2 NMA INHALATION EVERY 4-6 HOURS as needed for shortness of breath or wheezing 6.7 0 January 06, 2024 12:00am Complies with drug therapy Start: 04-15-2019 End: 04-15-2019 Albuterol Sulfate (Ventolin Hfa) 90 mcg/actuation HFA aerosol inhaler Discontinued 1 NMA INHALATION EVERY 6 HOURS as needed April 15, 2019 1:00am April 15, 2019 3:34pm Start: 04-15-2019 End: 04-15-2019 take 1 puff(s) by inhalation every six hours Albuterol Sulfate (Ventolin Hfa) 90 mcg/actuation HFA aerosol inhaler Discontinued 1 PUFF INHALATION EVERY 6 HOURS April 15, 2019 1:00am April 15, 2019 3:34pm amoxicillin 875 mg / clavulanate 125 mg oral tablet (1 source) Penicillin-class Antibacterial Start: 01-16-2024 End: 01-23-2024 take 1 tablet by mouth every twelve hours amoxicillin-clavulanate 875 mg-125 mg oral tablet 1 tab(s), Oral, q12h, X 7 day(s), # 14 tab(s), 0 Refill(s), 01/23/24 4:55:00 AM EDT, 90.9 Start Date: 01/16/24 Stop Date: 01/23/24 Status: Ordered azithromycin 250 mg oral tablet (20 sources) Macrolide Antimicrobial Start: 01-21-2025 Azithromycin 250 mg tablet Active 250 mg PO .COMPLEX 12 0 January 21, 2025 12:00am 2 tablets (500 mg) on day 1, then 1 tablet daily on days 2 through 11 Complies with drug therapy Start: 01-06-2024 End: 01-21-2025 Azithromycin (Zithromax Z-Pa k) 250 mg tablet Discontinued 0 PO .COMPLEX 6 0 January 06, 2024 12:00am January 21, 2025 1:53pm For 250 mg dose pack: take 500 mg today (day 1), then 250 mg for 4 days (days 2-5) PO Start: 10-01-2017 End: 05-26-2024 Azithromycin 250 mg tablet Discontinued 0 PO .COMPLEX 6 0 August 07, 2018 12:00am October 30, 2018 9:15am Take two tablets by mouth on day one then one tablet by mouth on days 2-5 Start: 02-20-2013 End: 04-29-2013 take 2 tablets by mouth every twenty-four hours Azithromycin 250 MG tablet Discontinued 500 mg PO EVERY 24 HOURS 2 0 February 20, 2013 1:00am April 29, 2013 1:41pm Start: 02-20-2013 End: 04-29-2013 take 500 mg by mouth every twenty-four hours Azithromycin Discontinued 500 MG PO EVERY 24 HOURS 2 February 20, 2013 1:00am April 29, 2013 1:41pm Comment on above: TAKE 2 TABLETS today then TAKE 1 TABLET DAILY UNTIL GONE benzonatate 200 mg oral capsule (7 sources) Non-narcotic Antitussive Start: take 1 capsule by mouth three times daily as needed for cough Benzonatate 200 mg capsule Active 200 mg PO THREE TIMES A DAY as needed for cough 20 0 January 21, 2025 12:00am Complies with drug therapy Start: 10-10-2017 End: 05-26-2024 benzonatate (TESSALON PERLE) 100 mg capsule 10/10/2017 05/26/2024 Discontinued butalb/acetaminophen/caffein e (FIORICET ORAL) (10 sources) butalb/acetamino phen/caffeine (FIORICET ORAL) Take by mouth as needed. Active butalb/acetamino phen/caffeine (FIORICET ORAL) Take by mouth. Active diphenhydrAMINE hydrochloride 25 mg oral capsule (15 sources) Histamine-1 Receptor Antagonist Start: 09-17-2023 take 1 capsule by mouth three times daily as needed Diphenhydramine Hcl (Benadryl) 25 mg capsule Active 25 mg PO THREE TIMES A DAY as needed September 17, 2023 12:00am Complies with drug therapy diphenhydramine HCl (BENADRYL ALLERGY ORAL) Take 30 mL by mouth as needed (allergy). Active diphenhydramine HCl (BENADRYL ALLERGY ORAL) Take 30 mL by mouth as needed (allergy). 0 Active diphenhydramine HCl (BENADRYL ALLERGY ORAL) Take by mouth. 0 Active Comment on above: Take by mouth. Take 30 mL by mouth as needed (allergy). [id number] 0.3 ml EPINEPHrine 1 mg/ml auto-injector (20 sources) alpha-Adrenergic Agonist, beta-Adrenergic Agonist, Catecholamine Start: 12-24-2021 EPINEPHrine (Epipen) 0.3 MG/0.3ML injection syringe Inject 0.3 mg into the shoulder, thigh, or buttocks. 12/24/2021 Active Start: 12-24-2021 Epinephrine (E pipen 2-Samuel) 0.3 mg/0.3 mL auto-injector Active 0.3 mg IM Q4H as needed for anaphylaxis 2 0 December 24, 2021 12:00am Complies with drug therapy famotidine 20 mg oral tablet (2 sources) Histamine-2 Receptor Antagonist Start: 12-24-2021 take 20 mg by mouth twice daily Famotidine Active 20 MG PO TWICE A DAY 10 5 December 24, 2021 12:00am levothyroxine sodium 0.125 mg oral tablet (20 sources) l-Thyroxine Start: 12-24-2023 take 1 tablet by mouth once daily Levothyroxine 125 mcg tablet Active 125 ug PO daily December 24, 2023 12:00am Complies with drug therapy Start: 09-17-2023 End: 12-24-2023 take 1 capsule by mouth once daily Levothyroxine 100 mcg capsule Discontinued 100 ug PO DAILY September 17, 2023 12:00am December 24, 2023 8:43am Start: 08-27-2023 End: 09-17-2023 take 1 capsule by mouth once daily Levothyroxine 137 mcg capsule Discontinued 137 ug PO DAILY August 27, 2023 2:57pm September 17, 2023 11:08am Start: 12-26-2022 End: 08-27-2023 Levothyroxine 137 mcg capsul e Discontinued 68.5 ug PO DAILY December 26, 2022 12:00am August 27, 2023 3:01pm Start: 12-26-2022 take 68.5 ug by mout h once daily Levothyroxine Active 68.5 MCG PO DAILY December 26, 2022 12:00am Start: 12-26-2022 take 137 ug by mouth once gaby y Levothyroxine Active 137 MCG PO DAILY December 26, 2022 12:00am Start: 12-09-2020 levothyroxine (SYNTHROID) 112 mcg tablet Take 125 mcg by mouth once daily. Patient reported 125 mcg 12/09/2020 Active Start: 06-17-2020 End: 12-26-2022 Levothyroxine 112 mcg tablet Discontinued 137 ug PO DAILY June 17, 2020 1:00am December 26, 2022 9:38am Start: 06-17-2020 End: 12-26-2022 take 137 ug by mouth once daily Levothyroxine Disconti nued 137 MCG PO DAILY June 17, 2020 1:00am December 26, 2022 9:38am Start: 06-17-2020 take 1 tablet by hemanth th once daily levothyroxine (SYNTHROID) 112 mcg tablet Take 112 mcg by mouth once daily. 0 12/09/2020 Active Start: 10-24-2019 levothyroxine 88 mcg (0.088 mg) oral tablet Dose : 88 mcg = 1 tab(s), Oral, qDay, # 30 tab(s), 0 Refill(s) Start Date: 10/24/19 Status: Ordered Start: 12-21-2013 End: 06-17-2020 take 1 tablet by mouth once daily Levothyroxine 88 mcg tablet Discontinued 0 .ROUTE .COMPLEX 90 1 August 12, 2019 8:47am June 17, 2020 4:11pm TAKE ONE TABLET BY MOUTH EVERY DAY Comment on above: Take 112 mcg by mout h once daily. loratadine 10 mg oral tablet (2 sources) Start: 12-24-2021 take 1 tablet by mouth once daily Loratadine (Claritin) 10 mg tablet Active 10 MG PO DAILY December 24, 2021 12:00am Magnesium Oxide (5 sources) Magnesium Oxide (MAG-200 PO) Take by mouth daily. Active Magnesium Oxide (MAG-200 PO) Take by mouth daily. 0 Active Medium Chain Triglycerides (2 sources) Start: 07-30-2023 take 1 mL by mouth once daily Medium Chain Triglycerides Active 15 ML PO DAILY July 30, 2023 12:00am nystatin [id number] unt/ml topical cream (20 sources) Polyene Antifungal Start: 08-14-2022 nystatin (Mycostatin) cream Apply to abdominal skin fold TWICE DAILY 08/14/2022 Active Ozempic, 1 MG/DOSE, 4 MG/3ML solution pen-injector (20 sources) Start: 07-15-2022 Ozempic, 1 MG/ DOSE, 4 MG/3ML solution pen-injector Indications: Type 2 Diabetes Mellitus 07/15/2022 Active Start: 07-15-2022 Ozempic, 1 MG/ DOSE, 4 MG/3ML solution pen-injector predniSONE 20 mg oral tablet (2 sources) Start: 12-24-2021 take 60 mg by mouth once daily Prednisone Active 60 MG PO DAILY December 24, 2021 12:00am promethazine hydrochloride 25 mg oral tablet (12 sources) Phenothiazine Start: 08-23-2023 take 1 tablet by mouth three times daily as needed for nausea and vomiting Promethazine 25 mg tablet Active 25 mg PO THREE TIMES A DAY as needed for nausea and vomiting August 23, 2023 7:38am Complies with drug therapy Start: 10-17-2022 End: 12-26-2022 take 1 tablet by mouth three times daily as needed for nausea and vomiting Promethazine 25 mg tablet Discontinued 25 mg PO THREE TIMES A DAY as needed for nausea and vomiting 21 October 17, 2022 12:00am December 26, 2022 9:40am tirzepatide (MOUNJARO) 2.5 mg/0.5 mL pen injector (10 sources) inject 2.5 mg by subcutaneous injection every week tirzepatide (MOUNJARO) 2.5 mg/0.5 mL pen injector Inject 2.5 mg subcutaneously one time a week. Active Tirzepatide (Mounjaro) 5 mg/0.5 mL pen injector (1 source) Start: Tirzepatide (Mounjaro) 5 mg/0.5 mL pen injector Active 5 mg SC EVERY WEEK 05 21December 24, 2023 12:00am Diabetes mellitus Type 2 diabetes mellitus with hyperglycemia vitamin b12 1 mg/ml injectable solution (5 sources) Vitamin B12 Cyanocobalamin ( B-12 Compliance Injection) 1000 MCG/ML kit Inject as directed. Every 3 weeks Active Completed/Discontinued Medications Medication Drug Class(es) Dates Sig (Normalized) Sig (Original) acetaminophen 325 mg / oxyCODONE hydrochloride 5 mg oral tablet (9 sources) Opioid Agonist Start: 10-17-2022 End: 12-26-2022 Oxycodone-Acetaminoph en (Percocet) 5-325 mg tablet Discontinued 1 {tbl} PO EVERY 6 HOURS as needed for pain 12 3 0 October 17, 2022 December 26, 2022 9:39am Colitis Noninfective gastroenteritis and colitis, unspecified ALPRAZolam 1 mg oral tablet (20 sources) Benzodiazepine Start: 07-24-2018 End: 09-24-2019 take 1 tablet by mouth once daily as needed for anxiety Alprazolam 1 mg tablet Discontinued 1 mg PO daily as needed for Anxiety 30 0 August 12, 2019 8:46am September 24, 2019 2:42pm Anxiety disorder, unspecified Start: 12-21-2013 End: 07-24-2018 take 1 tablet by mouth twice daily as needed for anxiety Alprazolam 1 MG tablet Discontinued 1 mg PO TWICE A DAY as needed for Anxiety December 21, 2013 12:00am July 24, 2018 2:41pm Comment on above: Take 1 mg by mouth a s needed. amitriptyline hydrochloride 25 mg oral tablet (18 sources) Tricyclic Antidepressant Start: 03-06-20 End: 06-12-19 take 1 tablet by mouth at bedtime Amitriptyline 25 mg tablet Discontinued 25 mg PO AT BEDTIME 30 March 06, 2019 1:00am June 12, 2019 12:02pm aspirin 81 mg delayed release oral tablet (2 sources) Platelet Aggregation Inhibitor, Nonsteroidal Anti-inflammatory Drug Start: 08-27-19 End: 09-17-19 take 1 tablet by mouth once daily Aspirin 81 mg tablet,delayed release (DR/EC) Discontinued 81 mg PO DAILY August 27, 2023 12:00am September 17, 2023 11:11am atenolol 25 mg oral tablet (20 sources) beta-Adrenergic Nando Start: 08-27-19 End: 09-17-19 Atenolol 25 mg tablet Discontinued 12.5 mg PO DAILY August 27, 2023 3:02pm September 17, 2023 11:07am Start: 10-31-2017 End: 08-27-2023 take 1 tablet by mouth once daily Atenolol 25 mg tablet Discontinued 0 .ROUTE .COMPLEX 90 August 12, 2019 8:47am August 01, 2020 6:37am TAKE ONE TABLET BY MOUTH EVERY DAY Start: 12-21-2013 End: 05-26-2024 take 1 tablet by mouth twice daily Atenolol 25 MG tablet Discontinued 25 mg PO TWICE A DAY December 21, 2013 12:00am October 31, 2017 1:55pm Comment on above: Take 25 mg by mouth twice daily. cephalexin 500 mg oral capsule (6 sources) Cephalosporin Antibacterial Start: 023 End: 023 take 1 capsule by mouth every twelve hours Cephalexin 500 mg capsule Discontinued 500 mg PO Q12H 20 10 0 March 22, 2023 1:00am March 31, 2023 1:00am April 01, 2023 1:04am cholecalciferol 0.125 mg oral capsule (20 sources) Vitamin D Start: End: take 1 capsule by mouth once daily Cholecalciferol (Vitamin D3) 125 mcg (5,000 unit) capsule Discontinued 125 ug PO DAILY August 27, 2023 12:00am September 17, 2023 11:11am Start: 08-15-2022 End: 10-25-2022 take 1 capsule by mouth once daily cholecalciferol (Vitamin D-3) 125 MCG (5000 UT) capsule Take 125 mcg by mouth daily. 0 08/15/2022 10/25/2022 Discontinued (Therapy completed) Start: 06-17-2020 End: 08-23-2023 take 1 capsule by mouth once daily Cholecalciferol (Vitamin D3) 125 mcg (5,000 unit) capsule Discontinued 5000 U PO DAILY June 17, 2020 1:00am August 23, 2023 6:34am Start: 03-12-2019 End: 08-12-2019 take 1 capsule by mouth once daily Cholecalciferol (Vitamin D3) 2,000 unit capsule Discontinued 2000 U PO DAILY 90 2 March 12, 2019 1:00am August 12, 2019 8:47am Start: 06-14-2017 take 1 tablet by hemanth th once daily cholecalciferol (VITAMIN D3) 5,000 unit tab Take 5,000 Units by mouth once daily. 2 06/14/2017 Active Start: 11-12-2016 End: 03-26-2018 take 1 capsule by mouth twice daily Cholecalciferol (Vitamin D3) 5,000 UNIT capsule Discontinued 5000 U PO TWICE A DAY November 12, 2016 12:00am March 26, 2018 4:20pm Cholecalciferol (VITAMIN D3 PO) Take by mouth. Active Cholecalciferol (VITAMIN D3 PO) Take by mouth. 0 Active Comment on above: Take 5,000 Units by mouth once daily. cyclobenzaprine hydrochloride 10 mg oral tablet (2 sources) Muscle Relaxant Start: End: take 1 tablet by mouth three times daily Cyclobenzaprine 10 mg tablet Discontinued 10 mg PO THREE TIMES A DAY August 27, 2023 12:00am September 17, 2023 11:11am 12 hr dextromethorphan hydrobromide 60 mg / guaiFENesin 1200 mg extended release oral tablet (18 sources) Uncompetitive T-pmyjio-C-aspartate Receptor Antagonist, Sigma-1 Agonist Start: 018 End: 019 take 60-1200 mg by mouth every twelve hours as needed Dextromethorphan-Guai fenesin (Mucinex Dm) 60-1,200 mg tablet extended release 12 hr Discontinued 1 {tbl} PO Q12H as needed for cough 14 0 March 26, 2018 1:00am July 24, 2018 2:12pm dicyclomine hydrochloride 20 mg oral tablet (6 sources) Anticholinergic Start: End: take 1 tablet by mouth four times daily as needed for pain Dicyclomine 20 mg tablet Discontinued 20 mg PO 4 TIMES DAILY as needed for abdominal pain/spasm 28 0 August 23, 2023 7:39am September 17, 2023 11:10am Start: 02-24-2023 End: 03-01-2023 dicyclomine 10 mg oral capsu le Dose : 10 mg = 1 cap(s), Oral, QID, # 20 cap(s), 0 Refill(s) Start Date: 02/24/23 Stop Date: 03/01/23 Status: Ordered doxycycline hyclate 100 mg oral capsule (9 sources) Tetracycline-class Drug Start: 09-20-2022 End: 12-26-2022 take 1 capsule by mouth twice daily Doxycycline Hyclate 100 mg capsule Discontinued 100 mg PO TWICE A DAY 28 0 September 20, 2022 12:00am December 26, 2022 9:38am empagliflozin 10 mg oral tablet (11 sources) Sodium-Glucose Cotransporter 2 Inhibitor Start: 04-26-2023 End: 04-26-2023 take 1 tablet by mouth once daily Empagliflozin (Jardiance) 10 mg tablet Discontinued 10 mg PO DAILY April 26, 2023 1:00am April 26, 2023 9:56am ibuprofen 200 mg oral tablet (18 sources) Nonsteroidal Anti-inflammatory Drug Start: 10-31-2017 End: 01-21-2025 take 1-10 tablets by mouth three to four times daily as needed for pain Ibuprofen 200 mg tablet Discontinued 200 mg PO 3 to 4 times per day as needed for Pain 1-10 Or Fever October 31, 2017 12:00am January 21, 2025 1:53pm iron carbonyl 45 mg oral tablet (18 sources) Start: 02-20-2013 End: 04-29-2013 take 1 capsule by mouth once daily at mealtime Iron, Carbonyl (Feosol) 45 MG capsule Discontinued 45 mg PO DAILY WITH MEALS 30 2 February 20, 2013 1:00am April 29, 2013 1:42pm lidocaine 0.05 mg/mg medicated patch (5 sources) Antiarrhythmic, Amide Local Anesthetic Start: 03-31-2021 End: 04-10-2021 lidocaine 5% topical patch Apply 1 patch(es), Topical, Daily, # 10 patch(es), 0 Refill(s), 93.2 Start Date: 03/31/21 Stop Date: 04/10/21 Status: Ordered linaclotide 0.145 mg oral capsule (13 sources) Guanylate Cyclase-C Agonist Start: 05-15-2022 End: 06-14-2022 take 1 capsule by mouth once daily Linaclotide (Linzess) 145 mcg capsule Discontinued 145 ug PO DAILY May 15, 2022 1:00am June 14, 2022 10:37am 3 ml liraglutide 6 mg/ml pen injector (20 sources) GLP-1 Receptor Agonist Start: 06-17-2020 End: 05-26-2024 Liraglutide (Victoza 3-Samuel) 0.6 mg/0.1 mL (18 mg/3 mL) pen injector Discontinued 1.8 mg SC Q24H 9 6 December 27, 2020 11:41am January 17, 2021 4:01pm Comment on above: Inject 1.8 MG (0.3 m L) SUBCUTANEOUSLY EVERY 24 HOURS Medium Chain Triglycerides 7.7 kcal/mL oil (2 sources) Start: 07-30-2023 End: 09-17-2023 take 1 mL by mouth once daily Medium Chain Triglycerides 7.7 kcal/mL oil Discontinued 15 mL PO DAILY July 30, 2023 12:00am September 17, 2023 11:10am medroxyPROGESTERone acetate 10 mg oral tablet (6 sources) Progestin Start: 09-01-2020 End: 05-26-2024 medroxyPROGESTERone (PROVERA, CYCRIN) 10 mg tablet TAKE 1 TABLET ONCE DAILY for TEN days A MONTH to start menses 09/01/2020 05/26/2024 Discontinued Comment on above: TAKE 1 TABLET ONCE D AILY for TEN days A MONTH to start menses multivit-minerals/ferr ous fum (MULTI VITAMIN ORAL) (6 sources) End: 05-26-2024 multivit-minerals/janet anthony fum (MULTI VITAMIN ORAL) Take by mouth. 05/26/2024 Discontinued multivit-mineral s/ferrous fum (MULTI VITAMIN ORAL) Take by mouth. Active multivit-mineral s/ferrous fum (MULTI VITAMIN ORAL) Take by mouth. 0 Active Comment on above: Take by mouth. naproxen 500 mg oral tablet (18 sources) Nonsteroidal Anti-inflammatory Drug Start: 01-28-20 13 End: 02-20-20 13 take 1 tablet by mouth twice daily as needed for pain Naproxen 500 MG tablet Discontinued 500 mg PO TWICE DAILY NEEDED as needed for Pain January 27, 2013 12:00am February 19, 2013 4:08pm omega-3 acid ethyl esters ([facility]) 1000 mg oral capsule (2 sources) Start: 12-24-19 24 End: 01-22-20 25 [place]-3 Acid Ethyl Esters 1 gram capsule Discontinued 1 NMA PO daily 30 December 24, 2023 12:00am January 21, 2025 1:53pm pantoprazole 20 mg delayed release oral tablet (12 sources) Proton Pump Inhibitor Start: 08-03-19 23 End: 12-27-19 23 take 1 tablet by mouth twice daily Pantoprazole 20 mg tablet,delayed release (DR/EC) Discontinued 20 mg PO TWICE A DAY 60 2 August 02, 2022 12:00am December 26, 2022 9:39am phentermine hydrochloride 37.5 mg oral tablet (6 sources) Sympathomimetic Amine Anorectic Start: 11-25-19 21 End: 05-26-19 25 take 1 tablet by mouth once daily in the morning Phentermine HCl 37.5 mg tablet TAKE 1 TABLET BY MOUTH ONCE DAILY IN THE MORNING 11/24/2020 05/26/2024 Discontinued Comment on above: TAKE 1 TABLET BY [facility] ONCE DAILY IN THE MORNING raNITIdine 150 mg oral tablet (18 sources) Histamine-2 Receptor Antagonist Start: 02-23-20 15 End: 07-18-20 18 take 1 tablet by mouth once daily as needed for pain Ranitidine Hcl 150 MG tablet Discontinued 150 mg PO DAILY as needed for Pain February 22, 2015 1:00am October 31, 2017 1:41pm rosuvastatin calcium 5 mg oral tablet (2 sources) HMG-CoA Reductase Inhibitor Start: 08-27-19 End: 09-17-19 take 1 tablet by mouth once daily Rosuvastatin 5 mg tablet Discontinued 5 mg PO DAILY August 27, 2023 12:00am September 17, 2023 11:10am 1 mg dose 1.5 ml semaglutide 1.34 mg/ml pen injector (20 sources) Start: 08-02-19 End: 04-26-19 Semaglutide (Ozempic) 1 mg/dose (2 mg/1.5 mL) pen injector Discontinued 0.5 MG SC August 01, 2022 9:50am April 26, 2023 9:55am Start: 01-17-2021 End: 08-01-2022 Semaglutide (Ozempic) 1 mg/d ose (2 mg/1.5 mL) pen injector Discontinued 0.5 MG SC EVERY WEEK January 17, 2021 4:01pm August 01, 2022 9:51am Start: 12-24-2020 End: 12-27-2020 Semaglutide (Ozempic) 1 mg/d ose (2 mg/1.5 mL) pen injector Discontinued 0.5 MG SC EVERY WEEK December 24, 2020 12:00am December 27, 2020 11:42am End: 05-26-2024 inject 1 mg by subcutaneous injection every week semaglutide (OZEMPIC) 1 mg/dose (2 mg/1.5 mL) pnij Inject 1 mg subcutaneously one time a week. 05/26/2024 Discontinued Comment on above: Inject 1 mg subcutan eously one time a week. Semaglutide (Ozempic) 1 mg/dose (2 mg/1.5 mL) pen injector (6 sources) Start: 08-01-2022 End: 04-26-2023 Semaglutide (Ozempic) 1 mg/dose (2 mg/1.5 mL) pen injector Discontinued 0.5 mg SC August 01, 2022 9:50am April 26, 2023 9:55am Start: 01-17-2021 End: 08-01-2022 Semaglutide (Ozempic) 1 mg/d ose (2 mg/1.5 mL) pen injector Discontinued 0.5 mg SC EVERY WEEK 3 3 January 17, 2021 4:01pm August 01, 2022 9:51am Start: 12-24-2020 End: 12-27-2020 Semaglutide (Ozempic) 1 mg/d ose (2 mg/1.5 mL) pen injector Discontinued 0.5 mg SC EVERY WEEK 3 3 December 24, 2020 12:00am December 27, 2020 11:42am sucralfate 1000 mg oral tablet (12 sources) Aluminum Complex Start: 08-02-2022 End: 12-26-2022 take 1 tablet by mouth twice daily Sucralfate 1 gram tablet Discontinued 1 g PO TWICE A DAY 60 0 August 02, 2022 12:00am December 26, 2022 9:40am sulfamethoxazole 800 mg / trimethoprim 160 mg oral tablet (18 sources) Dihydrofolate Reductase Inhibitor Antibacterial, Sulfonamide Antimicrobial Start: 01-27-2013 End: 02-19-2013 Sulfamethoxazole- Trimethoprim 1 TABLET tablet Discontinued January 27, 2013 12:00am February 19, 2013 4:08pm Start: 01-27-2013 End: 02-19-2013 Sulfamethoxazole-Trimethopri m Discontinued January 27, 2013 12:00am February 19, 2013 4:08pm Tirzepatide (1 source) Start: 04-26-2023 End: 12-24-2023 Tirzepatide (Mounjaro) 2.5 mg/0.5 mL pen injector Discontinued 2.5 mg SC EVERY WEEK 2 28 2 April 26, 2023 1:00am December 24, 2023 9:05am Diabetes mellitus Type 2 diabetes mellitus without complications Tirzepatide (1 source) Start: 12-24-2023 End: 01-21-2025 Tirzepatide (Mounjaro) 5 mg/ 0.5 mL pen injector Discontinued 5 mg SC EVERY WEEK 2 5 December 24, 2023 12:00am January 21, 2025 1:53pm Diabetes mellitus Type 2 diabetes mellitus with hyperglycemia Tirzepatide (Mounjaro) 2.5 mg/0.5 mL pen injector (5 sources) Start: 04-26-2023 End: 12-24-2023 Tirzepatide (Mounjaro) 2.5 mg/0.5 mL pen injector Discontinued 2.5 mg SC EVERY WEEK 2 13 06April 26, 2023 1:00am December 24, 2023 9:05am Diabetes mellitus Type 2 diabetes mellitus without complications Start: 04-26-2023 Tirzepatide (M ounjaro) 2.5 mg/0.5 mL pen injector Active 2.5 MG SC EVERY WEEK 2 April 26, 2023 1:00am Start: 04-26-2023 Tirzepatide (M ounjaro) 2.5 mg/0.5 mL pen injector Active 2.5 MG SC EVERY WEEK 2 April 26, 2023 12:00am traZODone hydrochloride 100 mg oral tablet (18 sources) Serotonin Reuptake Inhibitor Start: 09-07-2016 End: 10-31-2017 take 1 tablet by mouth at bedtime as needed Trazodone 100 MG tablet Discontinued 100 mg PO AT BEDTIME as needed for Insomnia September 07, 2016 12:00am October 31, 2017 1:41pm triamcinolone acetonide 0.055 mg/actuat metered dose nasal spray (6 sources) Corticosteroid Start: 03-22-2023 End: 07-30-2023 Triamcinolone Acetonide (Nasacort) 55 mcg aerosol,spray Discontinued 2 NMA INTRANASAL DAILY 16.9 0 March 22, 2023 1:00am July 30, 2023 10:20am administer into each nostril Start: 03-22-2023 End: 07-30-2023 take 1 spray(s) nasal route once daily Triamcinolone Acetonide (Nasacort) 55 mcg aerosol,spray Discontinued 2 SPRAY INTRANASAL DAILY 16.9 March 22, 2023 1:00am July 30, 2023 10:20am administer into each nostril Problems Active Problems Problem Classification Problem Date Documented Da te Episodic/Chronic Abdominal hernia (20 sources) Hiatal hernia; Translations: [Diaphragmatic hernia without obstruction or gangrene] Onset: 08-01-2022 Episodic Abdominal pain (20 sources) Acute abdominal pain; Translations: [Unspecified abdominal pain] Onset: 3 08-01-2020 Episodic Administrative/social admission (3 sources) Administrative reason for encounter; Translations: [Encounter for other administrative examinations] 07-07-2024 Episodic Anxiety disorders (20 sources) Anxiety; Translations: [Anxiety disorder, unspecified] Onset: 2 10-31-2017 Chronic Comment on above: PRN MED Cardiac dysrhythmias (20 sources) Cardiac arrhythmia; Translations: [Cardiac arrhythmia, unspecified] Onset: 4 Resolved: 5 11-21-2017 Chronic Chronic obstructive pulmonary disease and bronchiectasis (2 sources) Pulmonary emphysema; Translations: [Emphysema, unspecified] 08-27-2023 Chronic Complications of surgical procedures or medical care (20 sources) Postoperative seroma; Translations: [Postprocedural seroma of skin and subcutaneous tissue following a dermatologic procedure] Onset: 2 11-14-2021 Episodic Conditions associated with dizziness or vertigo (16 sources) Lightheadedness; Translations: [Dizziness and giddiness] 12-10-2021 Episodic Coronary atherosclerosis and other heart disease (2 sources) Coronary arteriosclerosis; Translations: [Atherosclerotic heart disease of [place] coronary artery without angina pectoris] 08-27-2023 Chronic Diabetes mellitus with complications (1 source) Type 2 diabetes mellitus with hyperglycemia; Translations: [Type 2 diabetes mellitus with hyperglycemia] Onset: 5 Chronic Diabetes mellitus without complication (20 sources) Diabetes mellitus; Translations: [Type 2 diabetes mellitus without complications] Onset: 2 06-17-2020 Chronic Disorders of lipid metabolism (20 sources) Hyperlipidemia; Translations: [Hyperlipidemia, unspecified] Onset: 5 08-01-2020 Chronic Diverticulosis and diverticulitis (2 sources) Diverticulosis of large intestine without perforation or abscess without bleeding; Translations: [DVRTCLOS LG INT NO PERF/ABSC W/O BL] Onset: 3 Chronic Esophageal disorders (4 sources) Gastroesophageal reflux disease without esophagitis; Translations: [Gastro-esophageal reflux disease without esophagitis] Onset: 5 05-26-2024 Chronic Essential hypertension (20 sources) Hypertensive disorder; Translations: [Essential (primary) hypertension] Onset: 2 08-01-2020 Chronic Comment on above: Patient's blood pres sure has been adequately controlled by her report. However today her diastolic is 90. Gastritis and duodenitis (19 sources) Gastritis; Translations: [Gastritis, unspecified, without bleeding] Onset: 5 Resolved: 5 08-31-2022 Episodic Headache; including migraine (20 sources) Migraine; Translations: [Migraine, unspecified, not intractable, without status migrainosus] Onset: 2 06-17-2019 Chronic Hepatitis (2 sources) Nonalcoholic steatohepatitis; Translations: [Nonalcoholic steatohepatitis (CIFUENTES)] 08-27-2023 Chronic Immunizations and screening for infectious disease (7 sources) Patient encounter status; Translations: [Encounter for screening for human papillomavirus (HPV)] 04-14-2024 Episodic Menstrual disorders (18 sources) Irregular periods; Translations: [Irregular menstruation, unspecified] 12-24-2020 Chronic Nausea and vomiting (20 sources) Vomiting; Translations: [Vomiting, unspecified] 12-10-2021 Episodic Noninfectious gastroenteritis (16 sources) Colitis; Translations: [Noninfective gastroenteritis and colitis, unspecified] Onset: 5 Resolved: 5 10-17-2022 Episodic Nonmalignant breast conditions (3 sources) Hypertrophy of breast; Translations: [Mastodynia] Onset: 2 01-16-2023 Episodic Nonspecific chest pain (20 sources) Chest wall pain; Translations: [Other chest pain] 04-30-2013 Episodic Nutritional deficiencies (20 sources) Vitamin D deficiency; Translations: [Vitamin D deficiency, unspecified] Onset: 4 10-30-2018 Chronic Nutritional deficiencies (19 sources) Vitamin deficiency; Translations: [Vitamin deficiency, unspecified] Onset: 5 10-31-2017 Episodic Osteoarthritis (20 sources) Arthritis; Translations: [Unspecified osteoarthritis, unspecified site] Onset: 2 10-31-2017 Chronic Other circulatory disease (2 sources) Raynaud's disease; Translations: [Raynaud's syndrome without gangrene] 08-27-2023 Chronic Other connective tissue disease (20 sources) Diastasis recti; Translations: [Separation of muscle (nontraumatic), other site] Onset: 5 02-25-2021 Episodic Other endocrine disorders (20 sources) Polycystic ovary; Translations: [Polycystic ovarian syndrome] Onset: 5 08-01-2020 Chronic Other endocrine disorders (3 sources) Polycystic ovary syndrome; Translations: [Polycystic ovarian syndrome] 05-26-2024 Chronic Other endocrine disorders (1 source) Polycystic ovarian syndrome; Translations: [PCOS (polycystic ovarian syndrome)] Onset: 5 Chronic Other gastrointestinal disorders (2 sources) Intra-abdominal and pelvic swelling, mass and lump, unspecified site; Translations: [INTRA-ABD PELV SWELL MASS LUMP] Onset: 3 Episodic Other gastrointestinal disorders (12 sources) Abdominal bloating; Translations: [Abdominal distension (gaseous)] 06-14-2022 Episodic Other gastrointestinal disorders (3 sources) Abdominal distension (gaseous); Translations: [Flatulence, eructation, and gas pain] 06-14-2022 Episodic Other inflammatory condition of skin (18 sources) Intertrigo; Translations: [Erythema intertrigo] 02-25-2021 Episodic Other injuries and conditions due to external causes (20 sources) Closed injury of head; Translations: [Unspecified injury of head, initial encounter] Onset: 5 Resolved: 5 02-22-2015 Episodic Other liver diseases (6 sources) Fatty (change of) liver, not elsewhere classified; Translations: [Other chronic nonalcoholic liver disease] Onset: 3 07-30-2023 Chronic Other liver diseases (11 sources) Steatosis of liver; Translations: [Fatty (change of) liver, not elsewhere classified] Onset: 3 07-30-2023 Chronic Other liver diseases (13 sources) Elevated liver enzymes level; Translations: [Abnormal levels of other serum enzymes] Onset: 4 04-26-2023 Episodic Comment on above: Will reevaluate live r enzymes and fasting lipid profile in 3 months. That we will determine the recommendation for statin therapy. Hopefully with her weight loss, control of her thyroid, and dietary modification her triglycerides will come under better control Other lower respiratory disease (1 source) Other nonspecific abnormal finding of lung field; Translations: [OTH NONSPECIFIC ABN FIND LNG FIELD] Onset: 3 Episodic Other nervous system disorders (18 sources) H/O: migraine; Translations: [Personal history of other diseases of the nervous system and sense organs] 10-31-2017 Episodic Other nervous system disorders (20 sources) Paresthesia; Translations: [Paresthesia of skin] Onset: 5 12-24-2020 Episodic Other nervous system disorders (4 sources) Paresthesia of skin; Translations: [Disturbance of skin sensation] 04-26-2023 Episodic Other nutritional; endocrine; and metabolic disorders (18 sources) Excess panniculus of abdomen; Translations: [Localized adiposity] 02-25-2021 Chronic Other nutritional; endocrine; and metabolic disorders (20 sources) Obesity; Translations: [Obesity, unspecified] Onset: 3 06-17-2020 Chronic Other nutritional; endocrine; and metabolic disorders (3 sources) Localized adiposity; Translations: [LOCALIZED ADIPOSITY] Onset: 2 Chronic Other nutritional; endocrine; and metabolic disorders (20 sources) Obesity caused by energy imbalance; Translations: [Other obesity due to excess calories] Onset: 3 10-25-2022 Chronic Other nutritional; endocrine; and metabolic disorders (8 sources) Obesity, unspecified; Translations: [Obesity, unspecified] Onset: 4 04-26-2023 Chronic Other nutritional; endocrine; and metabolic disorders (4 sources) Body mass index 30+ - obesity; Translations: [Body mass index (BMI) 34.0-34.9, adult] 06-15-2023 Chronic Other nutritional; endocrine; and metabolic disorders (2 sources) Body mass index (BMI) 34.0-34.9, adult; Translations: [Body mass index (BMI) 34.0-34.9, adult] Onset: 4 Chronic Other nutritional; endocrine; and metabolic disorders (2 sources) Body mass index (BMI) 35.0-35.9, adult; Translations: [Body mass index (BMI) 35.0-35.9, adult] Onset: 3 Chronic Other nutritional; endocrine; and metabolic disorders (1 source) Cholesterol level - finding; Translations: [Lipoprotein deficiency] 05-26-2024 Chronic Other nutritional; endocrine; and metabolic disorders (2 sources) Obese class I; Translations: [Obesity, Class I, BMI 30-34.9] 06-03-2024 Chronic Other nutritional; endocrine; and metabolic disorders (1 source) Body mass index (BMI) 33.0-33.9, adult; Translations: [Class 1 obesity with serious comorbidity and body mass index (BMI) of 33.0 to 33.9 in adult, unspecified obesity type] Onset: 5 Chronic Other skin disorders (18 sources) Skin finding; Translations: [Cutis laxa senilis] 02-25-2021 Episodic Other skin disorders (2 sources) Atrophic scar; Translations: [Scar conditions and fibrosis of skin] 01-23-2024 Episodic Other upper respiratory disease (20 sources) Seasonal allergy; Translations: [Other seasonal allergic rhinitis] Onset: 5 10-31-2017 Chronic Other upper respiratory infections (1 source) Chronic sinusitis; Translations: [Chronic sinusitis, unspecified] Onset: 4 Chronic Other upper respiratory infections (10 sources) Acute sinusitis; Translations: [Acute sinusitis, unspecified] 03-22-2023 Episodic Poisoning by nonmedicinal substances (20 sources) Anaphylaxis due to hymenoptera venom; Translations: [Toxic effect of venom of other arthropod, accidental (unintentional), initial encounter] Onset: 5 Resolved: 5 01-01-2022 Episodic Residual codes; unclassified (12 sources) Early satiety; Translations: [Early satiety] 06-14-2022 Episodic Residual codes; unclassified (3 sources) Early satiety; Translations: [Early satiety] 06-14-2022 Episodic Spondylosis; intervertebral disc disorders; other back problems (20 sources) Back problem; Translations: [Dorsopathy, unspecified] Onset: 2 02-15-2021 Episodic Sprains and strains (19 sources) Injury of multiple muscles and tendons at shoulder and upper arm level; Translations: [Strain of unspecified muscle, fascia and tendon at shoulder and upper arm level, unspecified arm, initial encounter] Onset: 1 Episodic Substance-related disorders (20 sources) Smokes tobacco daily; Translations: [Nicotine dependence, unspecified, uncomplicated] Onset: 5 03-08-2021 Chronic Comment on above: We went over multipl e options for smoking cessation. I did tell her that given the fact she has no known coronary disease at 48 years of age if she quit smoking she probably would not need to take an aspirin a day. Superficial injury; contusion (11 sources) Contusion of knee; Translations: [Contusion of left knee, initial encounter] 12-26-2022 Episodic Syncope (20 sources) Vasovagal syncope; Translations: [Syncope and collapse] Onset: 5 Resolved: 5 04-25-2015 Episodic Thyroid disorders (20 sources) Hypothyroidism due to Katelynn's thyroiditis; Translations: [Other specified hypothyroidism] Onset: 2 06-17-2020 Chronic Unclassified (9 sources) Abrasion, left knee, initial encounter 12-26-2022 Unclassified (2 sources) New Patient; Translations: [New Patient] Onset: 3 Unclassified (1 source) Fatty liver disease, nonalcoholic 05-26-2024 Unclassified (1 source) Cough, unspecified; Translations: [Cough, unspecified] Onset: 5 Unclassified (1 source) Class 1 obesity with serious comorbidity and body mass index (BMI) of 33.0 to 33.9 in adult, unspecified obesity type; Translations: [Class 1 obesity with serious comorbidity and body mass index (BMI) of 33.0 to 33.9 in adult, unspecified obesity type] Onset: 5 Past or Other Problems Problem Classification Problem Date Documented Da te Episodic/Chronic Allergic reactions (1 source) Allergy status to other drugs, medicaments and biological substances status; Translations: [ALLERGY STATUS OTH RX MEDANDBIO SUBST] Onset: 04-24-2022 Episodic Other aftercare (1 source) Other nursing home (current) drug therapy; Translations: [OTH LONGTERM CURRENT DRUG THERAPY] Onset: 04-24-2022 Episodic Other aftercare (1 source) Encounter for surgical aftercare following surgery on the skin and subcutaneous tissue; Translations: [ENC SURG AFTRCARE FLW SURG SKNANDSUBQ] Onset: 11-08-2021 Episodic Other inflammatory condition of skin (1 source) Erythema intertrigo; Translations: [ERYTHEMA INTERTRIGO] Onset: 09-27-2021 Episodic Other screening for suspected conditions (not mental disorders or infectious disease) (2 sources) Cancer cervix screening status; Translations: [Encounter for screening for malignant neoplasm of cervix] Onset: 04-15-2024 04-14-2024 Episodic Unclassified (18 sources) 2 vaginal deliveries 11-04-2021 Results Test Name Value Interpretation Reference Range Facility [facility] 02-16-2025 CNPN Telephone (OPHTMN) AMA AVELAR ([id number]) 1975 F Date Time Provider Department 02/16/25 ASHLYN PRIES OPHN During your visit today, we recorded the following information about you: Jess Cardenas 02/16/2025 1:51 PM Signed Patient accepted 03/24/25 @ 7:30am; Re: Ama Avelar Female, 49 year old, 1975 [place] [place] Jennifer This is non urgent since she has had it since a kid. Please schedule for 03/24, 03/26, or 03/31, or 04/02 at the available morning slots of either 7:30 or 8am. If they prefer to wait for a later time, they will have to schedule out for first available. Thx Notes / referral received and sent to Racheal / Scanning Allergies As of Date: 02/16/2025 Noted Allergy Reaction ADHESIVE TAPE (ROSINS) 01/23/2024 9 - Itching BEE VENOM PROTEIN (HONEY BEE) 01/16/2023 10 - Anaphylaxis Comments: Yellow jacket ZOFRAN (ONDANSETRON HCL (PF)) 10/11/2017 2 - Rash PROCHLORPERAZINE 06/15/2023 1 - Mental Status Change 14 - Other: See Comments Date Reviewed: 07/07/2024 Reviewed by: Tran Saunders RD - Fully Assessed Reason for Visit: Appointment [[id number]] Received Outside Medical Records [[id number]] Prescriptions as of 02/16/2025 - tirzepatide (MOUNJARO) 2.5 mg/0.5 mL pen injector Inject 2.5 mg subcutaneously one time a week. - butalb/acetaminophen/caffei ne (FIORICET ORAL) Take by mouth as needed. - levothyroxine (SYNTHROID) 112 mcg tablet Take 125 mcg by mouth once daily. Patient reported 125 mcg - ALPRAZolam (XANAX) 1 mg tablet Take 1 mg by mouth as needed. - cholecalciferol (VITAMIN D3) 5,000 unit tab Take 5,000 Units by mouth once daily. - diphenhydramine HCl (BENADRYL ALLERGY ORAL) Take 30 mL by mouth as needed (allergy). Problem List As Of Date 02/16/2025 Noted Resolved Vasovagal syncope [R55] 05/27/2024 05/27/2024 Type 2 diabetes mellitus without complication (*10/25/2022 Steatosis of liver [K76.0] 07/27/2022 Seasonal allergies [J30.2] 05/27/2024 Polycystic ovaries [E28.2] 05/27/2024 Paresthesia [R20.2] 05/27/2024 Migraines [G43.909] 05/27/2024 Hypothyroidism due to Katelynn's thyroiditis [*09/27/2021 Hyperlipemia [E78.5] 05/27/2024 Hiatal hernia [K44.9] 05/27/2024 Gastritis [K29.70] 05/27/2024 05/27/2024 Arthritis [M19.90] 05/27/2024 Essential (primary) hypertension [I10] 09/27/2021 Elevated liver enzymes [R74.8] 05/08/2023 Current every day smoker [F17.200] 05/27/2024 Colitis [K52.9] 05/27/2024 05/27/2024 Closed head injury [S09.90XA] 05/27/2024 05/27/2024 Class 1 obesity due to excess calories with bod*10/25/2022 Cardiac arrhythmia [I49.9] 09/17/2023 05/27/2024 Lumbar back pain [M54.50] 10/25/2022 Anaphylaxis due to hymenoptera venom [T63.481A,*05/27/2024 05/27/2024 Acquired hypothyroidism [E03.9] 10/25/2022 Diastasis of rectus abdominis [M62.08] 05/27/2024 Encounter Status:Closed by JESS CARDENAS on 02/16/25 [facility] Visit Reporton 1 Urgent Care Visit Report [facility] [address], [address] [place] [id number] OFFICE VISIT Date of Service: 01/21/25 MR#: [id number] Acct: [id number] Name: AMA AVELAR Rep #: [id number] : 1975 Provider: KEISHA Lafleur Age/Sex: 49/F Location: [email or web address] Status: Signed Intake Vital Signs 07/07/24 09:07 01/21/25 13:54 Height 5 ft 6 in BP 120/80 Position Sitting Respiration 18 Pulse 90 Temp 98.0 F Temp Source Oral Pulse Oximetry (%) 97 Oxygen Delivery Method room air Intake Visit Reasons: sinus congestion Chief Complaint: sinus congestion Accompanied by: Self Allergies bee pollen Allergy (Verified 01/21/25 13:54) Anaphylaxis ondansetron (From Zofran (as hydrochloride)) Allergy (Verified 01/21/25 13:54) Hives adhesive tape (tape) Adverse Reaction (Mild, Verified 01/21/25 13:54) Rash latex Adverse Reaction (Mild, Verified 01/21/25 13:54) Hives prochlorperazine (From Compazine) Adverse Reaction (Verified 01/21/25 13:54) Other Medications ???Medication ???Instructions ???Recorded ???Confirmed ???Type alprazolam 1 mg tablet 1 mg PO QDAY PRN Anxiety #30 tabs 09/24/19 01/21/25 Rx epinephrine 0.3 mg/0.3 mL 0.3 mg (0.3 mL) IM Q4H PRN 2 01/21/25 Rx injection, auto-injector (EpiPen anaphylaxis #2 ea 2-Samuel) promethazine 25 mg tablet 25 mg PO TID PRN nausea and 01/21/25 Rx vomiting #21 tabs diphenhydramine HCl 25 mg capsule 25 mg PO TID PRN 09/17/23 5 History (Benadryl) levothyroxine 125 mcg tablet 125 mcg PO QDAY 12/24/23 01/21/25 History albuterol sulfate 90 mcg/actuation 2 puff inhalation Q4-6H PRN 12/1601/21/25 Rx aerosol inhaler shortness of breath or wheezing #6.7 grams azithromycin 250 mg tablet 250 mg PO .COMPLEX #12 tabs 01/21/25 Rx benzonatate 200 mg capsule 200 mg PO TID PRN cough #20 caps 1 01/21/25 Rx Nurse's Note: Patient here for concerns for sinus infection. Patient has jaw/ear pain that goes down the right side of her neck. Patient also has right side neck pain. Patient states she also has tenderness in her sinus that has been going on a couple days. 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) Physical exam, pre-employment Raynaud disease Emphysema lung Essential hypertension CIFUENTES (nonalcoholic steatohepatitis) Coronary artery disease Abrasion, left knee, initial encounter Contusion of left knee Wears contact lenses Wears dentures Bite from insect Arthritis Restless legs Back pain Injury of head and neck History of hiatal hernia History of ulceration History of diverticulitis Former smoker History of pain when walking History of echocardiogram History of stress test Hypertension History of toxic effect of venomous spider bite Type 2 diabetes mellitus Varicose veins of lower extremity Current every day smoker Bone fracture Back problem Cardiac arrhythmia, unspecified 2 vaginal deliveries GERD (gastroesophageal reflux disease) Polycystic ovarian disease Anxiety Hypothyroidism Vitamin deficiency History of migraine Arthritis Seasonal allergies Hyperlipemia Surgical History History of abdominoplasty History of esophagogastroduodenoscopy (EGD) S/P bilateral breast reduction History of tubal ligation History of 2 sections Family History Grandfather Cancer Alcohol abuse Father Anxiety Arthritis Myocardial infarction Hypertension Mother Heart disease Hypertension Son Asthma Diabetes Uncle Thyroid disorder Social History Smoking Status: Current every day smoker tobacco type: cigarettes alcohol intake: never substance use type: does not use what type of physical activity do you participate in: walking frequency: daily additional social history: taking ibuprofen prn, no asa, no vaping, no blood clotting dx HPI HPI Chief Complaint: sinus congestion Details: AMA AVELAR, is a 49 F who presents to the office today for initial evaluation at the [facility] for approximately 5-7 day history of progressively worsening right facial pressure/congestion with purulent postnasal drip, cough (worse when supine), and right ear pressure. No complaints of fever, chills, myalgias, fatigue, runny nose, or nausea/vomiting/diarrhea. No complaints of chest pain/shortness of breath/dyspnea on exertion. No close contacts with similar complaints. Declining all POC screening. Admits to being a tobacco smoker. No soqs-pen-itagtub medications taken to assist. No other associated symptoms and no other alleviat (more content not included)... Normal [facility] Anion gap in Serum or Plasma Ordered By: Bari Desai on 10-22-2024 Anion gap [Moles/Vol] 12 mmol/L 5-15 [facility] BUN/creatinine ratioOrdered By: Bari Desai on 10-22-2024 Urea nitrogen/Creatinine [Mass ratio] 14.2 mg/mg 10-20 [facility] Bilirubin, totalOrdered By: Bari Desai on 10-22-2024 Bilirubin [Mass/Vol] 0.40 mg/dL 0.00-1.30 [facility] Calculated very low density lipoprotein (VLDL) cholesterol measurementOrdered By: Bari Desai on 10-22-2024 Calculated very low density lipoprotein (VLDL) cholesterol measurement 40 mg/dL 5-40 [facility] Carbon dioxide, total [Moles /volume] in Central venous bloodOrdered By: Bari Desai on 10-22-2024 CO2 [Moles/Vol] 25.4 mmol/L 21.0-32.0 [facility] Chloride assayOrdered By: Fransico Desai on 10-22-2024 Chloride [Moles/Vol] 103 mmol/L 98-108 [facility] Comprehensive Metabolic Prof ilon 10-22-2024 Albumin [Mass/Vol] 4.3 g/dL Normal 3.5-5.0 [facility] Comment on above: Performed By: #### L 506.1001, L501.9520, L500.4050, L501.9985, L500.4100, L503.0106, L506.0400 #### [facility] [address] [place], [address] Albumin/Globulin [Mass ratio] 1.3 {ratio} Normal 0.9-2.4 [facility] Comment on above: Performed By: #### L 506.1001, L501.9520, L500.4050, L501.9985, L500.4100, L503.0106, L506.0400 #### [facility] [address] [place], [address] ALK PHOS 103 U/L Normal 35-104 [facility] Comment on above: Performed By: #### L 506.1001, L501.9520, L500.4050, L501.9985, L500.4100, L503.0106, L506.0400 #### [facility] [address] [place], [address] ALT [Catalytic activity/Vol] 11 U/L Normal <=34 [facility] Comment on above: Performed By: #### L 506.1001, L501.9520, L500.4050, L501.9985, L500.4100, L503.0106, L506.0400 #### [facility] [address] [place], [address] AST [Catalytic activity/Vol] 17 U/L Normal <=31 [facility] Comment on above: Performed By: #### L 506.1001, L501.9520, L500.4050, L501.9985, L500.4100, L503.0106, L506.0400 #### [facility] [address] [place], [address] Bilirubin [Mass/Vol] 0.40 mg/dL Normal 0.00-1.30 [facility] Comment on above: Performed By: #### L 506.1001, L501.9520, L500.4050, L501.9985, L500.4100, L503.0106, L506.0400 #### [facility] [address] [place], [address] BUN/CRE 14.2 RATIO Normal 10-20 [facility] Comment on above: Performed By: #### L 506.1001, L501.9520, L500.4050, L501.9985, L500.4100, L503.0106, L506.0400 #### [facility] [address] [place], [address] Calcium [Mass/Vol] 9.7 mg/dL Normal 7.6-11.0 [facility] Comment on above: Performed By: #### L 506.1001, L501.9520, L500.4050, L501.9985, L500.4100, L503.0106, L506.0400 #### [facility] [address] [place], [address] Chloride [Moles/Vol] 103 mmol/L Normal 98-108 [facility] Comment on above: Performed By: #### L 506.1001, L501.9520, L500.4050, L501.9985, L500.4100, L503.0106, L506.0400 #### [facility] [address] [place], [address] CO2 [Moles/Vol] 25.4 mmol/L Normal 21.0-32.0 [facility] Comment on above: Performed By: #### L 506.1001, L501.9520, L500.4050, L501.9985, L500.4100, L503.0106, L506.0400 #### [facility] [address] [place], [address] Creatinine [Mass/Vol] 0.82 mg/dL Normal 0.70-1.20 [facility] Comment on above: Performed By: #### L 506.1001, L501.9520, L500.4050, L501.9985, L500.4100, L503.0106, L506.0400 #### [facility] [address] [place], [address] GAP 12 Normal 5-15 [facility] Comment on above: Performed By: #### L 506.1001, L501.9520, L500.4050, L501.9985, L500.4100, L503.0106, L506.0400 #### [facility] [address] [place], [address] GFR/1.73 sq M.predicted among non-blacks MDRD (S/P/Bld) [Vol rate/Area] 86 mL/min/{1.73_m2} Normal >60 [facility] Comment on above: Result Comment: mL/m in/1.73m2 CKD-EPI Creatinine Equation (2020) Performed By: #### L 506.1001, L501.9520, L500.4050, L501.9985, L500.4100, L503.0106, L506.0400 #### [facility] [address] [place], [address] Globulin (S) [Mass/Vol] 3.3 g/dL Normal 2.2-4.2 [facility] Comment on above: Performed By: #### L 506.1001, L501.9520, L500.4050, L501.9985, L500.4100, L503.0106, L506.0400 #### [facility] [address] [place], [address] Glucose [Mass/Vol] 99 mg/dL Normal 70-99 [facility] Comment on above: Performed By: #### L 506.1001, L501.9520, L500.4050, L501.9985, L500.4100, L503.0106, L506.0400 #### [facility] [address] [place], [address] Potassium [Moles/Vol] 3.9 mmol/L Normal 3.3-5.1 [facility] Comment on above: Performed By: #### L 506.1001, L501.9520, L500.4050, L501.9985, L500.4100, L503.0106, L506.0400 #### [facility] [address] [place], [address] Sodium [Moles/Vol] 140 mmol/L Normal 133-145 [facility] Comment on above: Performed By: #### L 506.1001, L501.9520, L500.4050, L501.9985, L500.4100, L503.0106, L506.0400 #### [facility] [address] [place], [address] T PROT 7.6 g/dL Normal 5.9-8.4 [facility] Comment on above: Performed By: #### L 506.1001, L501.9520, L500.4050, L501.9985, L500.4100, L503.0106, L506.0400 #### [facility] [address] [place], [address] Urea nitrogen [Mass/Vol] 12 mg/dL Normal 4-19 [facility] Comment on above: Performed By: #### L 506.1001, L501.9520, L500.4050, L501.9985, L500.4100, L503.0106, L506.0400 #### [facility] [address] [place], [place], [id number] Glomerular filtration rate ( GFR) estimation/1.73 sq m using serum, plasma, or whole bOrdered By: Bari Desai on 10-22-2024 GFR/1.73 sq M.predicted among non-blacks MDRD (S/P/Bld) [Vol rate/Area] 86 mL/min/{1.73_m2} >60 [facility] Comment on above: mL/min/1.73m2 CKD-EP I Creatinine Equation (2020) Hemoglobin A1con 10-22-2024 HbA1c (Bld) [Mass fraction] 6.3 % High <=5.6 [facility] Comment on above: Result Comment: Norm al < 5.7 % Prediabetic 5.7 - 6.4 % Diabetic >or= 6.5 % Please note range changes. Performed By: #### L 506.1001, L501.9520, L500.4050, L501.9985, L500.4100, L503.0106, L506.0400 #### [facility] [address] [place], [place], [id number] Hemoglobin A1c percentageOrd ered By: Bari Desai on 10-22-2024 HbA1c (Bld) [Mass fraction] 6.3 % High <5.7 [facility] Comment on above: Normal < 5.7 % Predi abetic 5.7 - 6.4 % Diabetic >or= 6.5 % Please note range changes. LDL calc ser/plasOrdered By: Bari Desai on 10-22-2024 Cholesterol in LDL [Mass/Vol] 121 mg/dL [facility] Comment on above: Xmqafhdbtw=265-103 m g/dL & Higher Mctl=906 mg/dL or greater Laboratory - Chemistry and C hemistry - challengeOrdered By: Bari Desai on 10-22-2024 AST [Catalytic activity/Vol] 17 U/L <32 [facility] Lipid Profileon 10-22-2024 CHOL:HDL 4.81 Normal [facility] Comment on above: Performed By: #### L 503.0105, L506.1000 #### [facility] [address] [place], [address] Cholesterol [Mass/Vol] 203 mg/dL High <=200 [facility] Comment on above: Result Comment: Chol esterol level, Desirable <200 mg/dL Borderline high cholesterol 200-239 mg/dL High cholesterol >=240 mg/dL Recommendations of the NCEP Adult Treatment Panel for the following risk-cutoff thresholds for the [place] population. Performed By: #### L 503.0105, L506.1000 #### [facility] [address] [place], [address] Cholesterol in HDL [Mass/Vol] 42 mg/dL Normal [facility] Comment on above: Result Comment: Cristy onal Cholesterol Education Program (NCEP) guidelines: <40 mg/dL: Low HDL-cholesterol (major risk factor for CHD) >= 60 mg/dL: High HDL-cholesterol (negative risk factor for CHD) HDL-cholesterol is affected by a number of factors, e.g. smoking, exercise, hormones, sex and age. Performed By: #### L 503.0105, L506.1000 #### [facility] [address] [place], [address] Cholesterol in LDL [Mass/Vol] 121 mg/dL Normal [facility] Comment on above: Result Comment: Bord yfwkhr=319-628 mg/dL Higher Awnp=991 mg/dL or greater Performed By: #### L 503.0105, L506.1000 #### [facility] [address] [place], [address] Cholesterol in VLDL [Mass/Vol] 40 mg/dL Normal 5-40 [facility] Comment on above: Performed By: #### L 503.0105, L506.1000 #### [facility] [address] [place], [place], [address] Triglyceride [Mass/Vol] 199 mg/dL Normal [facility] Comment on above: Result Comment: The drugs N-Acetylcysteine and Metamizole may falsely depress this assay. Normal range: <150 mg/dL Borderline High: 150-199 mg/dL High: 200-499 mg/dL Very High: >500 mg/dL Performed By: #### L 503.0105, L506.1000 #### [facility] [place] [address], [address] Potassium measurement (mass/ volume)Ordered By: Bari Desai on 10-22-2024 Potassium (Unsp spec) [Mass/Vol] 3.9 mmol/L 3.3-5.1 [facility] Screening total cholesterol/ high density lipoprotein (HDL) cholesterol ratioOrdered By: Bari Desai on 10-22-2024 Cholesterol.total/Chol esterol in HDL [Mass ratio] 4.81 {ratio} [facility] Serum creatinine measurement (mass/volume)Ordered By: Bari Desai on 10-22-2024 Creatinine [Mass/Vol] 0.82 mg/dL 0.70-1.20 [facility] Serum globulin measurementOr dered By: Bari Desai on 10-22-2024 Globulin (S) [Mass/Vol] 3.3 g/dL 2.2-4.2 [facility] Serum glucose measurement (m ass/volume)Ordered By: Bari Desai on 10-22-2024 Glucose [Mass/Vol] 99 mg/dL 70-99 [facility] Serum or plasma alanine prieto otransferase (ALT) measurementOrdered By: Bari Desai on 10-22-2024 ALT [Catalytic activity/Vol] 11 U/L <35 [facility] Serum or plasma albumin jud urement (mass/volume)Ordered By: Bari Desai on 10-22-2024 Albumin [Mass/Vol] 4.3 g/dL 3.5-5.0 [facility] Serum or plasma albumin/glob ulin mass ratioOrdered By: Bari Desai on 10-22-2024 Albumin/Globulin [Mass ratio] 1.3 {ratio} 0.9-2.4 [facility] Serum or plasma alkaline rhiannon sphatase measurementOrdered By: Bari Desai on 10-22-2024 ALP [Catalytic activity/Vol] 103 U/L 35-104 [facility] Serum or plasma calcium jud urement (mass/volume)Ordered By: Bari Desai on 10-22-2024 Calcium [Mass/Vol] 9.7 mg/dL 7.6-11.0 [facility] Serum or plasma cholesterol in HDL measurement (mass/volume)Ordered By: Bari Desai on 10-22-2024 Cholesterol in HDL [Mass/Vol] 42 mg/dL >40 [facility] Comment on above: National Cholesterol Education Program (NCEP) guidelines:<40 mg/dL: Low HDL-cholesterol (major risk factor for CHD)>= 60 mg/dL: High HDL-cholesterol (negative risk factor for CHD)HDL-cholesterol is affected by a number of factors, e.g. smoking, exercise, hormones, sex and age. Serum or plasma cholesterol measurement (mass/volume)Ordered By: Bari Desai on 10-22-2024 Cholesterol [Mass/Vol] 203 mg/dL High <201 [facility] Comment on above: Cholesterol level, D esirable <200 mg/dLBorderline high cholesterol 200-239 mg/dLHigh cholesterol >=240 mg/dLRecommendations of the NCEP Adult Treatment Panel for the following risk-cutoff thresholds for the [place] population. Serum or plasma urea nitroge n measurement (mass/volume)Ordered By: Bari Desai on 10-22-2024 Urea nitrogen [Mass/Vol] 12 mg/dL 4-19 [facility] Sodium levelOrdered By: Bari Desai on 10-22-2024 Sodium [Moles/Vol] 140 mmol/L 133-145 [facility] T4 Free Directon 10-22-2024 T4 FREE DIRECT 1.50 ng/dL High 0.76-1.46 [facility] Comment on above: Performed By: #### L 503.0105, L506.1000 #### [facility] [place] [address], [address] T4 freeOrdered By: Bari loomis on 10-22-2024 Free T4 [Mass/Vol] 1.50 ng/dL High 0.76-1.46 [facility] TSH DL <= 0.005 mIU/L QnOrde red By: Bari Desai on 10-22-2024 TSH Qn 2.030 uIU/mL 0.300-4.20 0 [facility] Thyroid Stim Hormone (TSH)on 10-22-2024 TSH 2.030 uIU/mL Normal 0.300-4.20 0 [facility] Comment on above: Performed By: #### L 503.0105, L506.1000 #### [facility] [address] [place], [place], [address] Total proteinOrdered By: Yasmeen Desai on 10-22-2024 Protein [Mass/Vol] 7.6 g/dL 5.9-8.4 [facility] Triglycerides measurementOrd ered By: Bari Desai on 10-22-2024 Triglyceride [Mass/Vol] 199 mg/dL <199 [facility] Comment on above: The drugs N-Acetylcy steine and Metamizole may falsely depress this assay. Normal range: <150 mg/dLBorderline High: 150-199 mg/dLHigh: 200-499 mg/dLVery High: >500 mg/dL Vitamin B12on 10-22-2024 Cobalamin (Vitamin B12) [Mass/Vol] 626 pg/mL Normal 180-914 [facility] Comment on above: Performed By: #### L 503.0105, L506.1000 #### [facility] [address] [place], [place], [address] Vitamin B12 ser/plasOrdered By: Bari Desai on 10-22-2024 Cobalamin (Vitamin B12) [Mass/Vol] 626 pg/mL 180-914 [facility] Vitamin D,25 Hydroxyon 10-22 Vitamin D 25-OH 45.9 ng/mL Normal 30-100 [facility] Comment on above: Result Comment: Cathy min D Status Deficiency: <20 ng/mL (50nmol/L) Insufficiency: 20-30 ng/mL (50-75 nmol/L) Sufficiency: 30-100 ng/mL (75-250 nmol/L) Toxicity: >100 ng/mL (>250 nmol/L) Performed By: #### L 503.0105, L506.1000 #### [facility] [address] [place], [address] CNPShelby 09-10-2024 CNPN Telephone (GASTPR) AMA AVELAR ([id number]) 1975 F Date Time Provider Department 09/10/24 TREY VILLALOBOS GASTPR During your visit today, we recorded the following information about you: Trey Villalobos RN 09/10/2024 3:20 PM Signed Spoke with patient regarding the following information: Procedure is scheduled for SundaySeptember 17 at 1pm. Please arrive by 12pm to check in at the endoscopy unit. Gastroenterology is located at desk 1 in the [facility] ([facility]/[address] [place] [address]). Park in the [address] or use [facility] Parking. Visit [email or web address] for up-to-date visitor restrictions and mask requirements. Construction alerts and updates are available online at [email or web address] You will be receiving IV (intravenous) sedation. Your ride MUST be present upon arrival to and MUST remain on the [facility] [place] for the duration of the procedure or your procedure will be cancelled. You MUST have a responsible person come with you and either drive you home or be with you while riding in public transportation (bus or taxi). You are NOT allowed to drive or leave the Endoscopy Center alone. Your procedure will be cancelled if your ride cannot be confirmed. Public transportation by yourself is not allowed. Most procedures take approximately 45-60 minutes. You and your responsible person must remain in the Endoscopy Center and be reachable by phone until you recover from your sedation. Most patients are discharged 1-2 hours after the procedure is completed. If you are taking Coumadin (Warfarin), Clopidogrel (Plavix), Aspirin, Ticlid, Aggrenox or other blood thinners, you must speak with your prescribing physician or the specialist performing the Endoscopy procedure at least 2 weeks PRIOR to your scheduled appointment. If you are taking Insulin?, long-acting Insulin (NPH), Lantus, Humalog, 70/30 Insulin, or any other medication to lower your blood sugar, contact your prescribing physician for instructions PRIOR to your procedure If you are taking medication for weight loss, contact your prescribing physician at least 1 week PRIOR to your procedure If you are taking medication for High Blood Pressure, Seizures, Asthma, Thyroid Disease, Irregular Heartbeat or taking Prednisone, you must take your medication on the morning of your procedure with a sip of water. If you take potent water pills, such as Lasix or Metolozone, do NOT take these the day before your procedure. Resume taking your water pill after the Endoscopy has been completed. If you take Iron pills, stop taking them 7 days PRIOR to the procedure. If you are taking non-steroidal anti-inflammatory drugs, such as Ibuprofen, (Motrin, Aleve), stop taking them 5 day PRIOR to the procedure. For all procedures including colonoscopy, EGD, EUS, ERCP, or enteroscopy, do NOT eat or drink ANYTHING after midnight unless otherwise indicated in your bowel prep instructions. If you have any questions, please call . If you need to cancel or reschedule your Endoscopy procedure, please call , option 1. Allergies As of Date: 09/10/2024 Noted Allergy Reaction ADHESIVE TAPE (ROSINS) 01/23/2024 9 - Itching BEE VENOM PROTEIN (HONEY BEE) 01/16/2023 10 - Anaphylaxis Comments: Yellow jacket ZOFRAN (ONDANSETRON HCL (PF)) 10/11/2017 2 - Rash PROCHLORPERAZINE 06/15/2023 1 - Mental Status Change 14 - Other: See Comments Date Reviewed: 07/07/2024 Reviewed by: Tran Saunders RD - Fully Assessed Prescriptions as of 09/10/2024 - tirzepatide (MOUNJARO) 2.5 mg/0.5 mL pen injector Inject 2.5 mg subcutaneously one time a week. - butalb/acetaminophen/caffei ne (FIORICET ORAL) Take by mouth as needed. - levothyroxine (SYNTHROID) 112 mcg tablet Take 125 mcg by mouth once daily. Patient reported 125 mcg - ALPRAZolam (XANAX) 1 mg tablet Take 1 mg by mouth as needed. - cholecalciferol (VITAMIN D3) 5,000 unit tab Take 5,000 Units by mouth once daily. - diphenhydramine HCl (BENADRYL ALLERGY ORAL) Take 30 mL by mouth as needed (allergy). 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 Normal [facility] ED MED ADMINISTRATION DETAIL on 09-01-2024 ED MED ADMINISTRATION DETAIL Submarine Advisory Team Watch Officer Medication Administration Record [address] [address] [id number] 09/01/2024 Patient: AMA AVELAR Sex: Female : 1975 Age: 49y MEASUREMENTS: Wt: 93.0 kg, Ht/Tim: 66.0 in, BMI: 33.09 ALLERGIES: Compazine, Zofran, bee pollen, shrimp Medication Ordered Medication Administration Date/Time Ibuprofen (Motrin) 10:35 09/01 Ibuprofen (Motrin) PO 600 mg given. Allergies verified Given PO 600 mg (NOW and confirmed 5 rights. Information reviewed with patient. 10:35 09/01/2024 x1) Verbalizes understanding. - 10:36 Mary Turcios R.N. Scanned 1 of 1 Normal [facility] ED NURSES CLINICAL NOTEon ED NURSES CLINICAL NOTE Nurse Narrative Nurse Clinical Narrative [address] [place] [address] [id number] 09/01/2024 09:27:00 Patient: AMA AVELAR Sex: Female : 1975 Age: 49y Disposition: Discharge to Home Disposition Decision Time: 11:07 09/01/2024 Departure Time: 11:16 09/01/2024 TRIAGE Historian: (patient). Primary physician (Jean Desai). Triage time: 09:25 09/01/2024. Acuity: LEVEL 3. Chief Complaint: FALL. Tripped; fell onto hard surface while walking. Landed on face. Location of injuries: abdomen and left shoulder. This occurred (30 minutes IN [employer]IGHT [employer]FU[employer]). No loss of consciousness. Not currently taking anticoagulation therapy. SEPSIS SCREEN: NEGATIVE. SIRS criteria negative. No possible sources of infection. -- 09:09/01/24 EDT Doretha Kimbrough R.N. 09:09/01/24. BP: 172/109 MAP: 130. HR: 89. RR: 18. O2 saturation: 98% Temperature: 97.8 F. Pain level now 9/10. Describes the pain as aching. -- :09/01/24 MARISSAT Doretha Kimbrough R.N. Measurements: 09:09/01/24 Wt: 93.0 kg, Ht/Tim: 66.0 in, BMI: 33.09 -- 09:09/01/24 MARISSAT Doretha Kimbrough R.N. Medications: levothyroxine 125 mcg tablet: 125 mcg once a day . -- 09:34 09/01/24 GAYLE Kimbrough R.N. Xanax 1 mg tablet: 1 mg once a day as needed. -- 09:34 09/01/24 GAYLE Kimbrough R.N. Vitamin D3 125 mcg (5,000 unit) tablet: 5000 units every other day . -- 09:35 09/01/24 GAYLE Kimbrough R.N. 1 of 4 Nurse Narrative 09:09/01/24. Preferred Pharmacy: ([facility]). -- 09:33 09/01/24 GAYLE Kimbrough R.N. Allergies: Compazine -- 09:30 09/01/24 GAYLE Kimbrough R.N. Zofran: rash -- 09:09/01/24 GAYLE Kimbrough R.N. bee pollen -- 09:34 09/01/24 GAYLE Kimbrough R.N. shrimp -- 09:09/01/24 GAYLE Kimbrough R.N. Home Medications/Allergy Information Source: patient -- 09:30 09/01/24 GAYLE Kimbrough R.N. Problems: Hypertension -- 09:09/01/24 GAYLE Kimbrough R.N. Diabetes Mellitus -- 09:09/01/24 GAYLE Kimbrough R.N. Hypothyroidism -- 09:09/01/24 GAYLE Kimbrough R.N. Anxiety disorder -- 09:09/01/24 GAYLE Kimbrough R.N. Surgeries: -- 09:09/01/24 GAYLE Kimbrough R.N. breast reduction -- 09:09/01/24 GAYLE Kimbrough R.N. Abdominoplasty -- 09:09/01/24 GAYLE Kimbrough R.N. Wound debridement from spider bite -- 09:09/01/24 GAYLE Kimbrough R.N. History 09:09/01/24. PAST MEDICAL HX: Other immunizations: up-to-date. SOCIAL HX: Current every day heavy tobacco smoker- less than 1 pack per day. No alcohol use or drug use. The patient has not traveled outside the [place] Infectious disease exposure: No infectious disease exposure. ABUSE ASSESSMENT: The patient answered yes to the question(s) Do you feel safe in your home? and 2 of 4 Nurse Narrative no to the question(s) Are you afraid to go home?. Abuse denied. No suspicion of abuse. SELF HARM ASSESSMENT: Self harm assessment was performed. The patient answered no to the question(s) Have you recently felt down, depressed, or hopeless? and Do you have thoughts of harming or killing yourself?. FALL RISK ASSESSMENT: Fall risk assessment completed. Risk factors identified include patient history of fall. Fall interventions initiated. Bed in low position. Brakes on. -- 09:33 09/01/24 GAYLE Kimbrough R.N. Interventions 09:09/01/24. Advanced care plan discussed with patient (Full code). -- 09:09/01/24 GAYLE Kimbrough R.N. PHYSICAL ASSESSMENT 10:09/01/24. GENERAL / NEURO / PSYCH: Alert. Oriented X 4. Appears in no acute distress. ( Pt arrives ambulatory to ER#3 c/o fall that occurred while walking. Pt is not sure if she tripped over a rock but states she landed straight on her face and is c/o left shoulder arm pain with limited ROM with abduction.). RESPIRATORY: Respirations not labored. GI / : Abdomen soft. Abdominal tenderness. EXTREMITIES: Extremities exhibit normal ROM. Neuro-vascular status intact to the extremity. SKIN: Skin intact. Skin is warm and dry. -- 10:34 09/01/24 GAYLE Kimbrough R.N. NURSING PROGRESS NOTES 10:16 09/01/24. Patient transported to radiology by stretcher with electronic technician. -- 10:16 09/01/24 GAYLE Kimbrough R.N. 10:35 09/01/24. Ibuprofen (Motrin) PO 600 mg given. Allergies verified and confirmed 5 rights. Information reviewed with patient. Verbalizes understanding. -- 10:36 09/01/24 GAYLE Kimbrough R.N. 11:12 09/01/24. Sling applied to left arm by nurse; distal pulses intact, sensation intact and motor function within normal limits. -- 11:17 09/01/24 GAYLE Kimbrough R.N. DISPOSITION / DISCHARGE 10:28 09/01/24. BP: 155/95 MAP: 115. HR: 74. RR: 18. O2 saturation: 99% -- 11:29 09/01/24 EDT Doretha Kimbrough R.N. Departure time: 11:16 09/01/2024. -- 11:19 09/01/24 EDT Doretha Kimbrough R.N. 3 of 4 N (more content not included)... Normal [facility] ED ORDER SHEET (CPOE ONLY)on 09-01-2024 ED ORDER SHEET (CPOE ONLY) Order Sheet Order Sheet [place] [address] [place] [address] [id number] 09/01/2024 Patient: AMA AVELAR Sex: Female : 1975 Age: 49y MEASUREMENTS: Wt: 93.0 kg, Ht/Tim: 66.0 in, BMI: 33.09 ALLERGIES: Compazine, Zofran, bee pollen, shrimp MEDICATION/IV/DRIP/FLUID ORDERS Order Description Priority Entered Acknowledged Completed Ibuprofen (Motrin) PO600 mg 10:05 09/01/2024 10:15 10:36 (NOW x1) John Pittman D.O. 09/01/2024 09/01/2024 Doretha Turcios R.N. R.N. LAB ORDERS Order Description Priority Entered Acknowledged Collected Completed DIAGNOSTIC STUDY ORDERS Order Description Priority Entered Acknowledged Completed Shoulder L Complete Stat Stat 10:05 09/01/2024 10:13 10:13 John Pittman D.O. 09/01/2024 09/01/2024 Doretha Turcios R.N. R.N. Order Comments: 10:09/01/2024: Status: Not . John Pittman D.O. Reason for Study: Pain STAFF ORDERS 1 of 2 Order Sheet Order Description Priority Entered Acknowledged Collected Completed Arm Sling 11:05 09/01/2024 11:12 09/01/2024 11:12 09/01/2024 Doretha Ward Shauna Ewing, D.O. R.N. RJustoNJusto [Electronically signed by John Pittman D.O. (09/01/2024 11:07 EDT)] 2 of 2 Normal [facility] ED PHYSICIAN CLINICAL REPORT on 09-01-2024 ED PHYSICIAN CLINICAL REPORT Narrative Physician Clinical Narrative [facility] [address] [place] [address] [id number] 09/01/2024 09:27:00 Patient: AMA AVELAR Sex: Female : 1975 Age: 49y Measurements Wt: 93.0 kg, Ht/Tim: 66.0 in, BMI: 33.09 Initial Vital Sign Measured Time BP MAP HR RR O2Sat ETCO2 Temp Pain GCS RTS 09:29 09/01/2024 172/109 130 89 18 98% 97.8 F 9 Time Seen: 09:42 09/01/2024. Arrived- By private vehicle. Historian- patient. HISTORY OF PRESENT ILLNESS Chief Complaint: INJURY TO FACE. The injury occurred just prior to arrival. Fell. Occurred at home. The patient complains of mild pain. REVIEW OF SYSTEMS SKIN: No laceration. : No bladder dysfunction. RESPIRATORY: No difficulty breathing. CVS: No chest pain. EYES: No loss of vision. EARS: No hearing loss. NEUROLOGICAL: No seizure, numbness or weakness. Status: Not . PAST HISTORY See nurses notes. 1 of 4 Narrative Anxiety disorder Diabetes Mellitus Hypertension Hypothyroidism Surgeries: Abdominoplasty breast reduction Wound debridement from spider bite Medications: levothyroxine 125 mcg tablet: 125 mcg once a day . Vitamin D3 125 mcg (5,000 unit) tablet: 5000 units every other day . Xanax 1 mg tablet: 1 mg once a day as needed. Allergies: bee pollen Compazine shrimp Zofran: rash Home Medications/Allergy Information Source: patient - Doretha Mary Kimbrough, 09/01/2024 09:30 EDT SOCIAL HISTORY No alcohol use or drug use. ADDITIONAL NOTES The nursing notes have been reviewed. PHYSICAL EXAM Vital Signs: Have been reviewed. Appearance: Alert. No acute distress. Does not appear to be anxious. 2 of 4 Narrative Head: No Cardoza's sign or raccoon eyes. Eyes: Pupils equal, round and reactive to light. EOM intact. ENT: No dental injury. Lower lip: superficial laceration. Neck: No muscle spasm in the neck. Painless ROM. Non-tender. No vertebral tenderness. CVS: Normal heart rate and rhythm. Heart sounds normal. Respiratory: Painless inspiration. Breath sounds normal. Chest nontender. Abdomen: Soft and nontender. Back: No tenderness. ROM normal. Skin: Skin intact. Extremities: Left shoulder: moderate tenderness located in the AC joint. Limited ROM (diminished abduction, flexion and external rotation). No deformity. No deformity consistent with a clavicle fracture or shoulder dislocation. Neuro: Oriented X 3. Mood/affect normal. Speech normal. No motor deficit. No sensory deficit. LABS, X-RAYS, AND EKG Diagnostic Study Tests: SHOULDER COMPLETE LT Final EXAM Date: 09/01/2024 10:49:00 EDT MsgRcvd: 09/01/2024 10:55 EDT [place] [address] Patient: AMA AVELAR Phone#: : 1975 Age: 49 Gender: F Pt. Type: ER Account: [id number] [facility] Ordering: JOHN PITTMAN Exam Date: 09/01/2024/10:19 Family Phys: Charge Code: [id number] Physician: [place] Order #: [id number] Dose#: PROCEDURE: X-RAY SHOULDER LT MIN 2 VIEWS COMPARISON: None. INDICATIONS: Pain. FINDINGS: BONES: Mild degenerative changes present at the acromioclavicular joint. SOFT TISSUES: Negative. No visible soft tissue swelling. 3 of 4 Narrative EFFUSION: None visible. OTHER: Negative. CONCLUSION: No acute disease. Dictated by: Carrie Solis MD on 09/01/2024 at 10:48 Approved by: Carrie Solis MD on 09/01/2024 at 10:49 PROGRESS AND PROCEDURES MEDICAL DECISION MAKING: (49-year-old female presenting after mechanical fall. She states she fell while walking and did hit her face on the ground. Denies LOC. she has a superficial lip laceration to the lower lip on the inside but is not through and through. There is nothing to suture. No focal neurologic deficits or lateralizing signs or symptoms. No facial abrasions or bruising. Nasal septum is midline. No extraocular muscle entrapment. no has a basilar skull fracture. Patient has no pain in the neck or back. She initially thought she had pain in her stomach but she does not have any now. most of her pain is in his left shoulder. She has a multi abducting this and flexing the shoulder. She has pain anterior and posterior to the left shoulder. Patient given 600 mg of ibuprofen. X-rays of the left shoulder will be obtained. I do not believe she needs CT imaging of the head and C-spine. X-ray of the left shoulder interpreted by myself shows no acute fracture subluxation. Patient will be placed in a sling for comfort but cautioned to make sure she is doing [id number] exercises so she does get frozen shoulder. She will be given follow up with Orthopedics. Discharged home in stable condition.). Disposition: Discharged in good condition. CLINICAL IMPRESSION Traumati (more content not included)... Normal [facility] ED SUPER BILL 09-01-[address] [address] [id number] 09/01/2024 Patient: AMA AVELAR Sex: Female : 1975 Age: 49y Item Professional Category Description Facility Code Code Quantity Fee Total Nurse/E/M EMERGENCY 877795 1 $0.00 $0.00 DEPARTMENT VISIT MODERATE SEVERITY (59110-43) Grand Total $0.00 Providers John Pittman D.O. Chief Complaint INJURY TO FACE. Principal Diagnosis Traumatic left rotator cuff strain. ICD-10 Codes 1 of 2 [facility] S46.012A: Strain of muscle(s) and tendon(s) of the rotator cuff of left shoulder, initial encounter 2 of 2 Normal [facility] ED VISIT SUMMARYon ED VISIT SUMMARY Visit Overview Visit Overview [address] [address] [id number] 09/01/2024 Patient: AMA AVELAR Sex: Female : 1975 Age: 49y 09/01/2024 11:29 AM EDT ED Arrival:09:27 09/01/2024 EDT Status:not Recent Travel: Language:eng Adv Directive: Isolation Status: Ethnicity:N Fall Risk: Infectious Disease Exposure: Measurements:5'6 / 167.6 Self-Harm Status: Sepsis Screen: cm 205.0 lb / 93.0 kg Chief Complaint: ALLERGIES bee pollen Compazine shrimp Zofran - rash HOME MEDICATIONS levothyroxine 125 mcg tablet: 125 mcg once a day . Vitamin D3 125 mcg (5,000 unit) tablet: 5000 units every other day . Xanax 1 mg tablet: 1 mg once a day as needed. 1 of 3 Visit Overview PAST MEDICAL HISTORY / PROBLEMS Anxiety disorder Diabetes Mellitus Hypertension Hypothyroidism See nurses notes PAST SURGICAL HISTORY Abdominoplasty breast reduction SOCIAL HISTORY ED COURSE MEDICATIONS GIVEN IN EMERGENCY DEPARTMENT 10:35 09/01/24 Ibuprofen (Motrin) PO 600 mg IV SITE INFORMATION INTAKE OUTPUT REASSESMENT (most recent) VITAL SIGNS First Vitals Last Vitals Temp 09:29 09/01/24 97.8 F Temp 10:28 09/01/24 BP 09:29 09/01/24 172/109 BP 10:28 09/01/24 155/95 HR 09:29 09/01/24 89 HR 10:28 09/01/24 74 RR 09:29 09/01/24 18 RR 10:28 09/01/24 18 O2 Sat 09:29 09/01/24 98% O2 Sat 10:28 09/01/24 99% Pain 09:29 09/01/24 9 Pain 10:28 09/01/24 ETCO2 09:29 09/01/24 ETCO2 10:28 09/01/24 GCS 09:29 09/01/24 GCS 10:28 09/01/24 2 of 3 Visit Overview First Vitals Last Vitals RTS 09:29 09/01/24 RTS 10:28 09/01/24 PROCEDURES NURSING INTERVENTIONS LABS / STUDIES LABS / STUDIES ORDERED Shoulder L Complete CLINICAL IMPRESSION TRAUMATIC LEFT ROTATOR CUFF STRAIN 3 of 3 Normal [facility] ED VITALS FLOW SHEETon 09-01 ED VITALS FLOW SHEET Vitals Vital Sign Flow Sheet [address] [place] [address] [id number] 09/01/2024 Patient: AMA AVELAR Sex: Female : 1975 Age: 49y Measurements Wt: 93.0 kg, Ht/Tim: 66.0 in, BMI: 33.09 Measured Time BP MAP HR RR O2Sat ETCO2 Temp Pain GCS RTS 10:28 09/01/2024 155/95 115 74 18 99% 09:29 09/01/2024 172/109 130 89 18 98% 97.8 F 9 1 of 1 Normal [facility] SHOULDER COMPLETE LTon 09-01 SHOULDER COMPLETE [place] [id number] [place] [address] Patient: AMA AVELAR. Phone#: : 1975 Age: 49 Gender: F Pt. Type: ER Account: [id number] [facility] Ordering: JOHN PITTMAN Exam Date: 09/01/2024/10:19 Family Phys: Charge Code: [id number] Physician: [place] Order #: [id number] Dose#: PROCEDURE: X-RAY SHOULDER LT MIN 2 VIEWS COMPARISON: None. INDICATIONS: Pain. FINDINGS: BONES: Mild degenerative changes present at the acromioclavicular joint. SOFT TISSUES: Negative. No visible soft tissue swelling. EFFUSION: None visible. OTHER: Negative. CONCLUSION: No acute disease. Dictated by: Carrie Solis MD on 09/01/2024 at 10:48 Approved by: Carrie Solis MD on 09/01/2024 at 10:49 [facility] Urgent Care Visit Reporton 0 07-07-2024 Urgent Care Visit Report [facility] 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 Chief Complaint: consult for scar tissue after breast reduct and abdominoplasty Allergies bee pollen Allergy (Verified 01/23/24 12:03) Anaphylaxis ondansetron (From Zofran (as hydrochloride)) Allergy (Verified 01/23/24 12:03) Hives adhesive tape (tape) Adverse Reaction (Mild, Verified 01/23/24 12:03) Rash latex Adverse Reaction (Mild, Verified 01/23/24 12:03) Hives prochlorperazine (From Compazine) Adverse Reaction (Verified 01/23/24 12:03) Other 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) Physical exam, pre-employment Raynaud disease Emphysema lung Essential hypertension CIFUENTES (nonalcoholic steatohepatitis) Coronary artery disease Abrasion, left knee, initial encounter Contusion of left knee Wears contact lenses Wears dentures Bite from insect Arthritis Restless legs Back pain Injury of head and neck History of hiatal hernia History of ulceration History of diverticulitis Former smoker History of pain when walking History of echocardiogram History of stress test Hypertension History of toxic effect of venomous spider bite Type 2 diabetes mellitus Varicose veins of lower extremity Current every day smoker Bone fracture Back problem Cardiac arrhythmia, unspecified 2 vaginal deliveries GERD (gastroesophageal reflux disease) Polycystic ovarian disease Anxiety Hypothyroidism Vitamin deficiency History of migraine Arthritis Seasonal allergies Hyperlipemia Surgical History History of abdominoplasty History of esophagogastroduodenoscopy (EGD) S/P bilateral breast reduction History of tubal ligation History of 2 sections Family History Grandfather Cancer Alcohol abuse Father Anxiety Arthritis Myocardial infarction Hypertension Mother Heart disease Hypertension Son Asthma Diabetes Uncle Thyroid disorder Social History Smoking Status: Current every day smoker tobacco type: cigarettes alcohol intake: never substance use type: does not use what type of physical activity do you participate in: walking frequency: daily additional social history: taking ibuprofen prn, no asa, no vaping, no blood clotting dx HPI HPI Chief Complaint: consult for scar tissue after breast reduct and abdominoplasty Details: AMA AVELAR, is a 49 F who presents to the office today for Office Procedures Physical Exam Coding PE Coding DOT PE: Yes Coding Level of Care Code No Charge Diagnoses 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) Z02.89 Assessment and Plan Assessment and Plan (1) 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): Status: Acute 07/07/24 0959 Date Rubio Malloy Signature: Date (if applicable) [facility] Office Visit (OBGYWM ) AMA AVELAR ([id number]) 1975 F Date Time Provider Department 05/26/24 10:20 AM LAINE COLON OBGYWM During your visit today, we recorded the following information about you: Pulse Blood pressure Weight Height 76/minute 130/74 94.8 kg 1.683 m Laine Colon MD 05/26/2024 12:32 PM Signed Patient Summary: Ama Avelar is a 49 year old female with obesity who presents for an initial evaluation of overweight/obesity to treat and prevent co-morbidities and is interested in open to all options. Motivation for seeking treatment for the disease of overweight/obesity : She wants to be healthier and she wants to lose weight. Goal weight: 150 lb Lowest recall weight: 170 lb Highest non- recall weight: 275 lb Patient identified barriers to weight loss: She works a lot so she doesn't get much exercise. Weight History: She reports a family history of obesity (sister, Mom, Daughter) and adolescence weight gain. She states her weight gain is related to the following factors, including reduced physical activity and consumption of unhealthy foods. Difficulty losing weight? yes History of weight loss with regain? She lost 95 lbs I doing keto and walking 10 miles a day in 4022-2511. Her weight then was 275 lb. Gained 40-50 lbs back. Since she stopped doing Keto she gained some weight back over time. - Last Wt 05/26/24 : 94.8 kg (209 lb) 5% weight loss = 199 lbs, 10% weight loss = 188 lbs WEIGHT GRAPH: Diet/Nutrition overview: Awake - B - 1/2 cup oatmeal , carlton and flax, walnuts, 1 teaspoon brown sugar and vanilla. , fruit smoothie, spinach, cape verdean yogurt, strawberries, blueberries, pineapples, apples, lemon marilee shot. Sometimes 26 gram protein S - L - chicken breast- reg flour 3 tablespoon/butter (1/2 stick day) and bake, lettuce , turkey , hamburger or steak S - 3pm Peanut butter crackers 4 D - same chicken above, green beans, cauliflower, broccoli, S - flourless cookies- oatmeal cookies, zero cape verdean yogurt- sugar free pudding mix- walnuts Fluids: 7 bottles of water, Bedtime - Quality of diet: 24hr recall suggests healthy diet. Characterization of diet:Structured and evening snacking. Seo Marketing Specialist of impaired eating habits:denies Eating Disorder no Cravings: sweet Sleep Duration: 4-6 hours. GALDINO NO ; CPAP NO Lay down 10-11pm , wake up 4am. Wakes up multiple times Stress Stress:yes , Cause:Work and Financial Obesity Related Comorbidities: Prior Weight Loss Surgery:No PAST MEDICAL HISTORY Diagnosis Date Anxiety HTN (hypertension) Hypothyroid PAST SURGICAL HISTORY Procedure Laterality Date SECTION HX 10/2002 SECTION HX 12/16/2003 D AND C 01/2002 EXCISE EXCESS SKIN TISSUE,ABDOMEN 09/2021 also breast INCISION AND DRAINAGE ABSCESS COMPLICATED/MULTIPLE 11/2010 Abd TUBAL LIGATION HX 12/16/2003 FAMILY HISTORY Problem Relation Age of Onset Hypertension Mother Diabetes Father Heart Father Hypertension Father Diabetes Son type 1 Social History Tobacco Use Smoking status: Every Day Current packs/day: 0.00 Average packs/day: 1 pack/day for 23.1 years (23.1 ttl pk-yrs) Types: Cigarettes Start date: 10/11/1997 Last attempt to quit: 11/15/2020 Years since quittin.5 Smokeless tobacco: Never Vaping Use Vaping status: Never Used Substance Use Topics Alcohol use: No Drug use: No AOM Medications: Tirzepatide (Mounjaro)- type [address] Plunkett has been on 2.5mg since starting it 9months ago (last A1c 5.8 04/2024, last A1c 07/2016) 2009 Type 2 DM Weight Promoting Medications: Diet/weight loss History: Past weight loss attempts? anti-obesity medications Phentermine. Caloric restriction, Weight watchers, Plexus and intermittent fasting Exercise: Regular exercise: yes walking everyday 2-5 miles Strength/resistance exercise:no Barriers to regular exercise? Yes has back, neck and hip pain with certain things Work-related activity:Sedentary. 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 Current Contraception: tubal sterilization Obesity ROS/ FHx GEN: Fatigue:yes CV: h/o palpitations/cardiac arrhythmia, Chest pain: yes- palpitations from anxiety (has had cardiac workup in the past that was normal through [facility]- not sure of year) HTN: yes PULM: Asthma:no GI: GERD:yes ; Gallstones:no ; Fatty liver disease:yes Pancreatitis: no MSK: Joint Pain:yes : Nephrolithiasis: no Symptoms of PCOS: yes NEURO: Migraines/GRIFFITHS: yes hx of aura ; H/o seizures: no Glaucoma:no; Cataracts no Symptoms of or History of pseudotumor cerebri:no Family or personal History of MEN2 or Medullary thyroid cancer: no PE BP 130/74 Pulse 76 Resp (!) 98 Ht 168.3 cm (5' 6.25) Wt 94.8 (more content not included)... Normal [facility] Chest PA and Lateralon 05-23 Chest PA and Lateral [facility] [address] [place], [place] [id number] Chest PA and Lateral MR#: [id number] Acct: [id number] Name: AMA AVELAR Rep #: [id number] : 1975 F 49 From: Bari Diamond MD PCP: Dr. Bari Desai DO Status: REG CLI Study: Chest PA and Lateral Date of Exam: 05/23/24 Exam# [id number] Ordering Dr: Bari Desai DO EXAM: XR Chest, 2 Views CLINICAL INDICATION: TECHNIQUE: Frontal and lateral views of the chest. COMPARISON: No relevant prior studies available. FINDINGS: LUNGS AND PLEURAL SPACES: Unremarkable. No consolidation. No pneumothorax. HEART: Unremarkable. No cardiomegaly. MEDIASTINUM: Unremarkable. Normal mediastinal contour. BONES/JOINTS: Unremarkable. No acute fracture. RAD/Chest PA and Lateral IMPRESSION: No acute cardiopulmonary process. Reading Location: [facility] CC: Dr. Bari Desai DO Report Specialist: Signed Normal [facility] Hemoglobin A1con 04-28-2024 HbA1c (Bld) [Mass fraction] 5.8 % High 3.8-5.6 [facility] Comment on above: Result Comment: Norm al < 5.7 % Prediabetic 5.7 - 6.4 % Diabetic >or= 6.5 % Please note range changes. Performed By: #### L 501.9985, L501.9520, L506.0400 #### [facility] [address] [place], [place], [id number] T4 Free Directon 04-28-2024 T4 FREE DIRECT 1.23 ng/dL Normal 0.76-1.46 [facility] Comment on above: Performed By: #### L 501.9985, L501.9520, L506.0400 #### [facility] [address] [place], [place], [id number] Thyroid Stim Hormone (TSH)on 04-28-2024 TSH 2.220 uIU/mL Normal 0.358-3.74 0 [facility] Comment on above: Performed By: #### L 501.9985, L501.9520, L506.0400 #### [facility] [address] [place], [address] JASPER SCREENING W TOMOon 04-15 JASPER SCREENING W FIDEL * * *Final Report* * * DATE OF EXAM: Apr 15 2024 8:01AM WRW [id number] - JASPER SCREENING W FIDEL / PROCEDURE REASON: multiple diagnoses * * * * Physician Interpretation * * * * RESULT: [facility] [address] [place] [address] #[id number] - JASPER SCREENING W FIDEL HISTORY: Patient is 48 years old and is seen for screening and is asymptomatic in both breasts. COMPARISON STUDIES: The present examination has been compared to a prior imaging study dated 08/09/2022 (mammogram). MAMMOGRAM TECHNIQUE: The study was acquired using full field digital technology and interpreted from soft copy. Digital Breast Tomosynthesis (DBT) images were obtained and used to assist in the interpretation of this examination. Computer-aided detection was utilized by the radiologist in the interpretation of this examination. MAMMOGRAM FINDINGS: There are scattered areas of fibroglandular density. There are post-operative changes in both breasts. There are no significant interval changes. No suspicious masses, calcifications or other abnormalities are seen in either breast. IMPRESSION: There is no mammographic evidence of malignancy. Routine screening mammogram is recommended. Annual mammogram will be due in 1 year. BI-RADS Category 2: Benign RISK: Based on the Tyrer-Cuzick (TC) risk assessment model, this patient has a 6.0% lifetime risk of developing breast cancer, meaning they are at average risk for developing breast cancer. However, this is only an estimate based on available history provided on the patient's questionnaire. We encourage all patients to talk with their providers about these results, further recommendations for managing breast health, and appropriate supplemental screening options if the patient has dense breast tissue. Interpreting Radiologist: Vanessa Miller M.D. Electronically signed on: 04/17/2024 Report Specialist: JULIAN Transcribe Date/Time: Apr 15 2024 7:33A Dictated by: VANESSA MILLER MD This examination was interpreted and the report reviewed and electronically signed by: VANESSA MILLER MD on Apr 17 2024 9:32AM EST [id number] Normal [facility] CNOVon 04-14-2024 CNOV Office Visit (OBGYWM ) AMA AVELAR ([id number]) 1975 F Date Time Provider Department 04/14/24 8:20 AM PERRY PERSAUD OBGYWM During your visit today, we recorded the following information about you: Perry Persaud MD 04/14/2024 9:16 AM Signed Loan Documents Closer provided by Fatou Andrews LPN Ama is a 48 year old No obstetric history on file. who presents for an annual gynecologic exam without complaints. No menses for more than a year with occ. hotflashes. Still get period: No LMP: no menses x1 year Pt reported. Menopause symptoms: Hot flashes control frequency: Never HPV vaccine: none HPV:positive, unknown with 2021 pap Last pap smear: Patient reported 2021, negative pap History of abnormal pap: Yes, history of abnormal PAP smears Colposcopy: Yes: Leep: No. Cone biopsy: No. Bothersome pelvic pain: Yes Last mammogram: [facility] Patient concerns for STD exposure: Yes: same partner past 15 years Last sexual contact: 4 days ago OB History No obstetric history on file. 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 LMP: Age at Menarche: 9 Age at First : Age at Menopause: 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 Comments: Sexual Activity: No sexual activity data on record; No partner data on record Contraception: No contraception data on record PAST MEDICAL HISTORY Diagnosis Date Anxiety HTN (hypertension) Hypothyroid PAST SURGICAL HISTORY Procedure Laterality Date SECTION HX 10/2002 SECTION HX 12/16/2003 D AND C 01/2002 EXCISE EXCESS SKIN TISSUE,ABDOMEN 09/2021 also breast INCISION AND DRAINAGE ABSCESS COMPLICATED/MULTIPLE 11/2010 Abd TUBAL LIGATION HX 12/16/2003 FAMILY HISTORY Problem Relation Age of Onset Hypertension Mother Diabetes Father Heart Father Hypertension Father Diabetes Son type 1 SOCIAL HISTORY Social History Tobacco Use Smoking status: Former Current packs/day: 0.00 Average packs/day: 1 pack/day for 23.1 years (23.1 ttl pk-yrs) Types: Cigarettes Start date: 10/11/1997 Quit date: 11/15/2020 Years since quittin.4 Smokeless tobacco: Never Vaping Use Vaping status: Never Used Substance Use Topics Alcohol use: No Drug use: No REVIEW OF SYSTEMS Abdomen: No abdominal pain, nausea, vomiting, diarrhea, or constipation. No bloating, early satiety, indigestion, or increased flatulence. Bladder: No dysuria, gross hematuria, urinary frequency, urinary urgency, or incontinence. Breast: No breast lumps, nipple d/c, overlying skin changes, redness or skin retraction. Allergies and current medication updated:Yes SENSITIVE EXAM: The sensitive examination was discussed with the Patient or Patient's Authorized Informatics Coordinator. As applicable, any other physician, advance practice provider, medical student, or other health professional student that will be observing or involved in the sensitive examination for educational or training purposes was discussed with the Patient or Authorized Informatics Coordinator. The Patient or Authorized Informatics Coordinator has agreed to proceed with the sensitive examination. (Sensitive examination includes inspection and/or palpation of the breasts, pelvis, prostate and anorectal regions). EXAM: There were no vitals taken for this visit. GENERAL: pleasant, female in no apparent distress HEENT: Normocephalic, atraumatic, mucus membranes moist, and no lesions NECK: Supple, full range of motion, no adenopathy, and thyroid normal DERMATOLOGY: Normal, without lesions, non-icteric, and non-hirsute BREAST: soft, non-tender, symmetric, no dominant mass, normal nipple-areolar complex, no lymphadenopathy, no nipple discharge, and noting breast reduction scar CHEST: Normal inspiratory effort ABDOMEN: soft, non-tender, no masses, and and notoing a diathesis and scars from abdominoplasty PELVIC: external genitalia normal, normal Bartholin's glands, urethra, [place]'s glands, no vulvar lesions, no cervical lesions, good vaginal support, physiologic discharge present, normal appearing perineal body and perianal region BIMANUAL: uterus normal size, shape and consistency, no adnexal masses, and non-tender RECTOVAGINAL: deferred. NEURO: alert and oriented x3,exam grossly non-focal EXTREMITIES: normal ASSESSMENT/PLAN: 1) Health maintenance: Pap done with reflex HPV. Mammogram ordered. 2) Contraception: tubal sterilization. Contraceptive options reviewed and information provided. 3) STD screening: Declined STD check. 4) Follow up one year or sooner as needed 5) Interested in weight loss consultation Perry Persaud MD Allergies As of Date: 04/14/2024 Noted Allergy Reaction BEE VENOM PROTEIN (HONEY BEE) 01/16/2023 10 - Anaphylaxis ZOFRAN (ONDANSETRON HCL (PF)) 10/11/2017 2 - Rash PROCHLORPERAZINE 06/15/2023 1 - Mental Status Change 14 - Other: See Comments Date Reviewed: (more content not included)... Normal [facility] HIGH RISK HUMAN PAPILLOMA SABINE (HPV), PCR FOR DETECTION AND GENOTYPINGon 04-14-2024 HPV 16 Ag Ql (Unsp spec) Not detected Normal Not detected [facility] Comment on above: Order Comment: Speci men Type: FLUID SPECIMENOrdering Facility: [facility] Address: [address] [place] [address] Performed By: #### H PVHRT ####[facility] [id number] [place] [address] [place] HPV 18 Ag Ql (Unsp spec) Not detected Normal Not detected [facility] Comment on above: Order Comment: Speci men Type: FLUID SPECIMENOrdering Facility: [facility] Address: [address] [place] [address] Performed By: #### H PVHRT ####[facility]IA [id number] [place] [address] [place] HPV 31+33+35+39+45+51+52+5 6+58+59+66+68 DNA ESTUARDO+probe Ql (Cvx) Not detected Normal Not detected [facility] Comment on above: Order Comment: Speci men Type: FLUID SPECIMENOrdering Facility: [facility] Address: [address] [place] [address] Result Comment: High Risk HPV Other Type includes HPV types 31, 33, 35, 39, 45, 51, 52, 56, 58, 59, 66 and 68. Performed By: #### H PVHRT ####[facility] [id number] [place] [address] [place] PAP TESTon 04-14-2024 ADEQUACY Satisfactory for interpretation. Normal [facility] Comment on above: Order Comment: Speci men Type: FLUID SPECIMEN Ordering Facility: [facility] Address: [address] [place] [address] Performed By: #### L [id number] #### [facility] CLIA [id number] [address] [place] [address] [place] CASE REPORT Normal [facility] Comment on above: Order Comment: Speci men Type: FLUID SPECIMEN Ordering Facility: [facility] Address: [address] [place] [address] Result Comment: Gyne cologic Cytology Report Case: [id number] Authorizing Provider: Perry Persaud MD Collected: 04/14/2024 12:12 PM Ordering Location: OB/Gynecology Received: 04/14/2024 12:40 PM First Screen: Gurdeep Seals, CT, ASCP Specimen: Pap Test, ThinPrep, Cervix Performed By: #### L [id number] #### [facility] CLIA [id number] [address] [place] [address] [place] CLINICAL HISTORY, CYTOLOGY, FACILITY SERVICE MANAGER Routine Exam Normal [facility] Comment on above: Order Comment: Speci men Type: FLUID SPECIMEN Ordering Facility: [facility] Address: [address] [place] [address] Result Comment: Rhianna pausal Performed By: #### L [id number] #### [facility] CLIA [id number] [address] [place] [address] [place] FINAL PERFORMING LAB Normal [facility] Comment on above: Order Comment: Speci men Type: FLUID SPECIMEN Ordering Facility: [facility] Address: [address] [place] [address] Result Comment: Tech nical component, secondary english teacher screening performed at [facility], [address] [place], [place] [id number] CLIA# [id number] Diagnostic interpretation performed at [facility], [address] [place], [place] [address] CLIA# [id number] Medical Advisor: Ralph Carvalho M.D. Performed By: #### L [id number] #### [facility] CLIA [id number] [address] [place] [address] [place] INTERPRETATION, CYTOLOGY, FACILITY SERVICE MANAGER Normal [facility] Comment on above: Order Comment: Speci men Type: FLUID SPECIMEN Ordering Facility: [facility] Address: [address] [place] [address] Result Comment: Nega tive for intraepithelial lesion or malignancy. Performed By: #### L [id number] #### [facility] CLIA [id number] [address] [place] [address] [place] PAP DISCLAIMER COMMENT The Pap Smear is a screening test for cervical cancer. False negative results occur with all screening tests, emphasizing the need for rescreening at recommended intervals, and clinical correlation. Normal [facility] Comment on above: Order Comment: Speci men Type: FLUID SPECIMEN Ordering Facility: [facility] Address: [address] [place] [address] Performed By: #### L [id number] #### [facility] CLIA [id number] [address] [place] [address] [place] PAP CONDUIT REAMER OPERATOR COMMENT This specimen has be en analyzed by the [employer] System, an automated imaging and review system, which assists the laboratory in evaluating cells on ThinPrep Pap tests. Following automated imaging, selected roe from every slide are reviewed by a secondary english teacher. Normal [facility] Comment on above: Order Comment: Speci men Type: FLUID SPECIMEN Ordering Facility: [facility] Address: [address] [place], [place] [address] Performed By: #### L [id number] #### [facility] CLIA [id number] [address] [place] [address] [place] [address] [place] Vitamin B12on 03-05-2024 Cobalamin (Vitamin B12) [Mass/Vol] 608 pg/mL Normal 211-911 [facility] Comment on above: Performed By: #### L 503.0105, L506.1000 #### [facility] [address] [place], [place], [id number] Vitamin D,25 Hydroxyon 03-05 Vitamin D 25-OH 28.0 ng/mL Normal [facility] Comment on above: Result Comment: Cathy min D 25(OH) Status Range Deficiency <20 ng/mL (50nmol/L) Insufficiency 20 - 30 ng/mL (50 - 75 nmol/L) Sufficiency 30 - 100 ng/mL (75 - 250 nmol/L) Toxicity >100 ng/mL (>250 nmol/L) Performed By: #### L 503.0105, L506.1000 #### [facility] [address] [place], [place], [address] Absolute lymphocyte countOrd ered By: Rik Landa on 08-23-2023 Lymphocytes Auto (Unsp spec) [#/Vol] 2.59 10*3/uL 0.83-4.51 [facility] Automated lymphocyte count a s percentage of total leukocytesOrdered By: Rik Landa on 08-23-2023 Lymphocytes/100 WBC Auto (Unsp spec) 23.2 % 19-41 [facility] Basophil percentageOrdered B y: Rik Landa on 08-23-2023 Basophils/100 WBC (Bld) 0.6 % 0-1 [facility] Bilirubin [Mass/Vol] 0.40 mg/dL 0.20-1.00 [facility] Comment on above: For patients on eltr ombopag therapy, use of Dimension Clark TBIL is not recommended. Chloride [Moles/Vol] 112 mmol/L 98-107 [facility] Eosinophils/100 WBC (Bld) 1.3 % 0-5 [facility] Glucose [Mass/Vol] 116 mg/dL 74-106 [facility] Comment on above: Fasting Glucose resu lt from 100 to 125 mg/dL suggests IMPAIRED HOMEOSTASIS per A.D.A. criteria. Hemoglobin (Bld) [Mass/Vol] 16.0 g/dL 12.0-15.0 [facility] Monocytes/100 WBC (Bld) 4.0 % 0-10 [facility] Neutrophils (Bld) [#/Vol] 7.9 10*3/uL 2.0-7.7 [facility] Neutrophils/100 WBC (Bld) 70.5 % 47-70 [facility] Potassium [Moles/Vol] 3.6 mmol/L 3.5-5.1 [facility] Protein [Mass/Vol] 7.5 g/dL 6.4-8.2 [facility] Sodium [Moles/Vol] 139 mmol/L 136-145 [facility] WBC (Bld) [#/Vol] 11.2 10*3/uL 4.4-11.0 [facility] Determination of erythrocyte mean corpuscular volume (MCV)Ordered By: Rik Landa on 08-23-2023 MCV (RBC) [Entitic vol] 90.9 fL 81-99 [facility] Direct bilirubinOrdered By: Rik Landa on 08-23-2023 Bilirubin.direct [Mass/Vol] 0.13 mg/dL 0.00-0.30 [facility] Erythrocyte distribution wid th ratioOrdered By: Rik Landa on 08-23-2023 Erythrocyte distribution width (RBC) [Ratio] 12.9 % 11.6-14.6 [facility] Erythrocyte distribution wid th standard deviationOrdered By: Rik Landa on 08-23-2023 Erythrocyte distribution width (RBC) [Entitic vol] 42.8 fL 35.1-43.9 [facility] Hematocrit Auto (Bld) [Volum e fraction]Ordered By: Rik Landa on 08-23-2023 Hematocrit (Bld) [Volume fraction] 49.0 % 37-47 [facility] Immature granulocytes/100 WB C Auto (Bld)Ordered By: Rik Landa on 08-23-2023 Immature granulocytes/100 WBC (Bld) 0.400 % 0.0-0.9 [facility] Comment on above: IG% - Immature Granu locytes (promyelocytes, myelocytes and metamyelocytes) > 1% indicates that a LEFT SHIFT is Present. Laboratory - Chemistry and C hemistry - challengeOrdered By: Rik Landa on 08-23-2023 ALP [Catalytic activity/Vol] 101 U/L 45-117 [facility] ALT [Catalytic activity/Vol] 28 U/L 13-56 [facility] CO2 [Moles/Vol] 23.0 mmol/L 21.0-32.0 [facility] Globulin (S) [Mass/Vol] 4.0 g/dL 2.2-4.2 [facility] Lipase [Catalytic activity/Vol] 60 U/L 13-75 [facility] Comment on above: Please note:LIPASE r evised reference range effective 22. New Lipase methodology. Expected to produce lower values than the previous assay method. NEW Reference Range: 13 - 75 U/L Urea nitrogen/Creatinine [Mass ratio] 17.6 mg/mg 10-20 [facility] Laboratory - Hematology and Cell countsOrdered By: Rik Landa on 08-23-2023 MCH (RBC) [Entitic mass] 29.7 pg 27.0-32.0 [facility] MCHC (RBC) [Mass/Vol] 32.7 g/dL 32-36 [facility] Nucleated RBC/100 WBC (Bld) [Ratio] 0 % 0-5 [facility] Platelet mean volume (Bld) [Entitic vol] 10.8 fL 6.2-12.0 [facility] Platelets (Bld) [#/Vol] 286 10*3/uL 150-450 [facility] No Panel InformationOrdered By: Rik Landa on 08-23-2023 Estimated Creatinine Clearance Calc 106.57 ml/min [facility] Estimated GFR (MDRD) Amer 107 mL/min >60 [facility] Comment on above: GFR Calc Estimated GFR (MDRD) Non-Af Amer 89 mL/min >60 [facility] Comment on above: Non- GFR Calc RBC Auto (Bld) [#/Vol]Ordere d By: Rik Landa on 08-23-2023 RBC (Bld) [#/Vol] 5.39 10*6/uL 4.2-5.4 [facility] Serum or plasma calcium jud urement (mass/volume)Ordered By: Rik Landa on 08-23-2023 Calcium [Mass/Vol] 9.1 mg/dL 8.5-10.1 [facility] Serum or plasma choriogonado tropin detectionOrdered By: Rik Landa on 08-23-2023 HCG ( test) Ql Negative [facility] Serum or plasma creatinine m easurement (mass/volume)Ordered By: Rik Landa on 08-23-2023 Creatinine [Mass/Vol] 0.74 mg/dL 0.55-1.02 [facility] Comment on above: The validity of the calculated GFR & GFRAA in patients over 70 years has not been determined. Clinical correlation is essential. Serum or plasma urea nitroge n measurement (mass/volume)Ordered By: Rik Landa on 08-23-2023 Urea nitrogen [Mass/Vol] 13 mg/dL 7-18 [facility] Thin prep Papanicolaou smear with manual screeningOrdered By: Rik Landa on 08-23-2023 Thin prep Papanicolaou smear with manual screening 3.5 g/dL 3.2-5.0 [facility] Thin prep Papanicolaou smear with manual screening 23 U/L 15-37 [facility] Thin prep Papanicolaou smear with manual screening 4 5-15 [facility] Laboratory - Chemistry and C hemistry - challengeOrdered By: Bari Desai on 08-22-2023 Cobalamin (Vitamin B12) [Mass/Vol] 696 pg/mL 211-911 [facility] No Panel InformationOrdered By: Bari Desai on 08-22-2023 Vitamin D 25-Hydroxy 71.4 ng/mL [facility] Comment on above: Vitamin D 25(OH) Sta tus Range Deficiency <20 ng/mL (50nmol/L) Insufficiency 20 - 30 ng/mL (50 - 75 nmol/L) Sufficiency 30 - 100 ng/mL (75 - 250 nmol/L) Toxicity >100 ng/mL (>250 nmol/L) .GFRon 08-09-2023 GFR 45 ml/min/1.73sqm Normal [facility] ([place]) Comment on above: Result Comment: GFR Population mean for , Non- Americans Ages 20-29 = 116 mL/min/1.73 sq.m. Ages 30-39 = 107 mL/min/1.73 sq.m. Ages 40-49 = 99 mL/min/1.73 sq.m. Ages 50-59 = 93 mL/min/1.73 sq.m. Ages 60-69 = 85 mL/min/1.73 sq.m. Ages 70+ = 75 mL/min/1.73 sq.m. Chronic Kidney Disease: Less than 60 mL/min/1.73 square meters End Stage Renal Disease: Less than 15 mL/min/1.73 square meters Performed By: #### P REGU, UA #### [address] [address] GFR Non- 37 ml/min/1.73sqm Normal [facility] ([place]) Comment on above: Result Comment: GFR Population mean for , Non- Americans Ages 20-29 = 116 mL/min/1.73 sq.m. Ages 30-39 = 107 mL/min/1.73 sq.m. Ages 40-49 = 99 mL/min/1.73 sq.m. Ages 50-59 = 93 mL/min/1.73 sq.m. Ages 60-69 = 85 mL/min/1.73 sq.m. Ages 70+ = 75 mL/min/1.73 sq.m. Chronic Kidney Disease: Less than 60 mL/min/1.73 square meters End Stage Renal Disease: Less than 15 mL/min/1.73 square meters Performed By: #### P REGU, UA #### [address] [address] BMPon 08-09-2023 BUN/Creatinine Ratio 15 ratio Normal 7-27 [facility] ([place]) Comment on above: Performed By: #### P REGU, UA #### [address] [address] Calcium [Mass/Vol] 9.5 mg/dL Normal 8.4-10.2 [facility] ([place] Comment on above: Performed By: #### P REGU, UA #### [address] [address] Chloride [Moles/Vol] 104 mmol/L Normal 98-107 [facility] ([place]) Comment on above: Performed By: #### P REGU, UA #### [address] [address] CO2 [Moles/Vol] 25 mmol/L Normal 22-29 [facility] ([place]) Comment on above: Performed By: #### P REGU, UA #### [address] [address] Creatinine [Mass/Vol] 1.49 mg/dL High 0.55-1.02 [facility] ([place]) Comment on above: Performed By: #### P REGU, UA #### [address] [address] Electrolyte Balance 13.0 mEq/L Normal 4.0-15.0 [facility] ([place]) Comment on above: Performed By: #### P REGU, UA #### [address] [address] Glucose [Mass/Vol] 103 mg/dL Normal 70-105 [facility] ([place] Comment on above: Performed By: #### P REGU, UA #### [address] [address] Potassium [Moles/Vol] 4.0 mmol/L Normal 3.5-5.1 [facility] ([place]) Comment on above: Performed By: #### P REGU, UA #### [address] [address] Sodium [Moles/Vol] 142 mmol/L Normal 136-145 [facility] ([place] Comment on above: Performed By: #### P REGU, ROSAS #### [address] [address] Urea nitrogen [Mass/Vol] 23 mg/dL High 7-18 [facility] ([place]) Comment on above: Performed By: #### P REGU, ROSAS #### [address] [address] PBNPon 08-09-2023 Natriuretic peptide B (Bld) [Mass/Vol] 26 pg/mL Normal 0-125 [facility] ([place]) Comment on above: Result Comment: NT-p roBNP results of less than 300 pg/mL effectively rules out acute congestive heart failure with 99% negative predictive value. Performed By: #### P REGU, ROSAS #### [address] [address] TROPHSon 08-09-2023 High Sensitivity Troponin I 5 ng/L Normal 0-51 [facility] ([place]) Comment on above: Result Comment: High Sensitive Troponin I Reference Ranges: Female: 0-51 ng/L Male: 0-76 ng/L Testing performed on saperatec using a homogeneous sandwich chemiluminescent immunoassay based on [employer] technology. Performed By: #### T DAVID #### [address] [address] High Sensitivity Troponin I 4 ng/L Normal 0-51 [facility] ([place]) Comment on above: Result Comment: High Sensitive Troponin I Reference Ranges: Female: 0-51 ng/L Male: 0-76 ng/L Testing performed on saperatec using a homogeneous sandwich chemiluminescent immunoassay based on [employer] technology. Performed By: #### P REGU, UA #### [place] [id number] XR CHEST 1 VIEWon 08-09-2023 XR CHEST 1 VIEW ORIGINAL EXAMINATION: ONE XRAY VIEW OF THE CHEST08/08/2023 9:50 pm COMPARISON: None HISTORY: ORDERING SYSTEM PROVIDED HISTORY: Reason for Exam: Left sided chest pain, high blood pressure. chest pain FINDINGS: The cardiomediastinal silhouette is within normal limits. No focal pulmonary consolidation, pneumothorax, or large pleural effusion visualized. No acute osseous abnormalities identified. Degenerative spine changes. IMPRESSION: No acute radiographic abnormality identified. Preliminary Report was Dictated by a Resident I have personally reviewed all of the images of this examination and agree with the resident findings and interpretation. Interpreted by: Mark Bass MD Preliminary Report By: Matthew Hdez Electronically signed By Mark Bass MD Dictated Date: 08/08/2023 9:57:49 PM Prelim Date: 08/08/2023 10:02:26 PM Sign Date: 08/08/2023 10:45:02 PM Ordering Provider: HALEY Hsu [facility] ([place]) .Auto Diffon 08-08-2023 Basophil, Absolute 0.2 10 3/mcL Normal 0.0-0.2 [facility] ([place]) Comment on above: Performed By: #### P REGU, UA #### [address] [address] Basophils/100 WBC (Bld) 1.2 % Normal 0.0-2.5 [facility] ([place]) Comment on above: Performed By: #### P REGU, UA #### [address] [address] Eosinophil, Absolute 0.2 10 3/mcL Normal 0.0-0.4 [facility] ([place]) Comment on above: Performed By: #### P REGU, UA #### [address] [address] Eosinophils/100 WBC (Bld) 1.5 % Normal 0.0-7.0 [facility] ([place]) Comment on above: Performed By: #### P REGU, UA #### [address] [address] Lymphocyte, Absolute 5.0 10 3/mcL High 0.8-3.9 [facility] ([place]) Comment on above: Performed By: #### P REGU, UA #### [address] [address] Lymphocytes/100 WBC (Bld) 37.2 % Normal 10.0-50.0 [facility] ([place]) Comment on above: Performed By: #### P REGU, UA #### [address] [address] Monocyte, Absolute 0.7 10 3/mcL Normal 0.2-1.0 [facility] ([place]) Comment on above: Performed By: #### P REGU, UA #### [address] [address] Monocytes/100 WBC (Bld) 4.8 % Normal 1.7-13.0 [facility] ([place]) Comment on above: Performed By: #### P REGU, UA #### [address] [address] Neutrophils/100 WBC (Bld) 55.3 % Normal 37.0-80.0 [facility] ([place]) Comment on above: Performed By: #### P REGU, UA #### [address] [address] [address] .MDWon 08-08-2023 Monocyte Distribution Width 20.04 High 0.00-20.00 [facility] ([place]) Comment on above: Result Comment: For adults in ED, MDW>20.0 may be associated with a higher risk of sepsis during the first 12hrs of hospital admission Performed By: #### P REGU, UA #### [address] [address] .NEUABSon 08-08-2023 Neutrophil, Absolute 7.5 10 3/mcL High 2.9-6.2 [facility] ([place]) Comment on above: Performed By: #### P REGU, UA #### [address] [address] CBCon 08-08-2023 Erythrocyte distribution width (RBC) [Ratio] 13.6 % Normal 11.5-14.5 [facility] ([place]) Comment on above: Performed By: #### P REGU, UA #### [address] [address] Hematocrit (Bld) [Volume fraction] 48.9 % High 37.0-47.0 [facility] ([place]) Comment on above: Performed By: #### P REGU, UA #### [address] [address] Hgb 17.1 G/dL High 12.0-16.0 [facility] ([place]) Comment on above: Performed By: #### P REGU, UA #### [address] [address] MCH (RBC) [Entitic mass] 30.9 pg Normal 27.0-31.2 [facility] ([place]) Comment on above: Performed By: #### P REGU, UA #### [address] [address] MCHC 34.9 G/dL Normal 33.0-37.0 [facility] ([place]) Comment on above: Performed By: #### P REGU, UA #### [address] [address] MCV (RBC) [Entitic vol] 88.7 fL Normal 80.0-94.0 [facility] ([place]) Comment on above: Performed By: #### P REGU, UA #### [address] [address] Platelet 289 10 3/mcL Normal 130-400 [facility] ([place]) Comment on above: Performed By: #### P REGU, UA #### [address] [address] Platelet mean volume (Bld) [Entitic vol] 8.8 fL Normal 7.4-10.4 [facility] ([place]) Comment on above: Performed By: #### P REGU, UA #### [address] [address] RBC 5.52 10 6/mcL High 4.20-5.40 [facility] ([place]) Comment on above: Performed By: #### P REGU, UA #### [address] [address] WBC 13.6 10 3/mcL High 4.6-10.8 [facility] ([place]) Comment on above: Performed By: #### P DIMA UA #### [address] [place], [place] [address] LABORATORYOrdered By: SYSTEM SYSTEM on 08-08-2023 Troponin I.cardiac DL <= 0.01 ng/mL [Mass/Vol] 5 ng/L Normal 0 - 51 ng/L AO ADM SS Comment on above: Interpretive Data: H igh Sensitive Troponin I Reference Ranges: Female: 0-51 ng/L Male: 0-76 ng/L Testing performed on saperatec using a homogeneous sandwich chemiluminescent immunoassay based on VoipSwitch technology. Basophil, Absolute 0.2 103/mcL Normal 0.0 - 0.2 10^3/mcL AO Workflow SS Basophils/100 WBC (Bld) 1.2 % Normal 0.0 - 2.5 % AO Workflow SS Calcium [Mass/Vol] 9.5 mg/dL Normal 8.4 - 10. 2 mg/dL AO ADM SS Chloride [Moles/Vol] 104 mmol/L Normal 98 - 10 7 mmol/L AO ADM SS CO2 [Moles/Vol] 25 mmol/L Normal 22 - 29 mmol/L AO ADM SS Creatinine [Mass/Vol] 1.49 mg/dL High 0.55 - 1.02 mg/dL AO ADM SS Electrolyte Balance 13.0 mEq/L Normal 4.0 - 15 .0 mEq/L AO ADM SS Eosinophil, Absolute 0.2 103/mcL Normal 0.0 - 0 .4 10^3/mcL AO Workflow SS Eosinophils/100 WBC (Bld) 1.5 % Normal 0.0 - 7.0 % AO Workflow SS Erythrocyte distribution width (RBC) [Ratio] 13.6 % Normal 11.5 - 14.5 % AO Workflow SS GFR/1.73 sq M.predicted among blacks MDRD (S/P/Bld) [Vol rate/Area] 45 ml/min/1.73sqm Invalid Interpretation Code AO Chemistry S Comment on above: Interpretive Data: GFR Population mean for , Non- Americans Ages 20-29 = 116 mL/min/1.73 sq.m. Ages 30-39 = 107 mL/min/1.73 sq.m. Ages 40-49 = 99 mL/min/1.73 sq.m. Ages 50-59 = 93 mL/min/1.73 sq.m. Ages 60-69 = 85 mL/min/1.73 sq.m. Ages 70+ = 75 mL/min/1.73 sq.m. Chronic Kidney Disease: Less than 60 mL/min/1.73 square meters End Stage Renal Disease: Less than 15 mL/min/1.73 square meters GFR/1.73 sq M.predicted among non-blacks MDRD (S/P/Bld) [Vol rate/Area] 37 ml/min/1.73sqm Invalid Interpretation Code AO Chemistry S Comment on above: Interpretive Data: GFR Population mean for , Non- Americans Ages 20-29 = 116 mL/min/1.73 sq.m. Ages 30-39 = 107 mL/min/1.73 sq.m. Ages 40-49 = 99 mL/min/1.73 sq.m. Ages 50-59 = 93 mL/min/1.73 sq.m. Ages 60-69 = 85 mL/min/1.73 sq.m. Ages 70+ = 75 mL/min/1.73 sq.m. Chronic Kidney Disease: Less than 60 mL/min/1.73 square meters End Stage Renal Disease: Less than 15 mL/min/1.73 square meters Glucose [Mass/Vol] 103 mg/dL Normal 70 - 105 mg/dL AO ADM SS Hematocrit (Bld) [Volume fraction] 48.9 % High 37.0 - 47.0 % AO Workflow SS Hemoglobin (Bld) [Mass/Vol] 17.1 G/dL High 12.0 - 16.0 G/dL AO Workflow SS Lymphocyte, Absolute 5.0 103/mcL High 0.8 - 3 .9 10^3/mcL AO Workflow SS Lymphocytes/100 WBC (Bld) 37.2 % Normal 10.0 - 50.0 % AO Workflow SS MCH (RBC) [Entitic mass] 30.9 pg Normal 27.0 - 31.2 pg AO Workflow SS MCHC 34.9 G/dL Normal 33.0 - 37.0 G/dL AO Workflow SS MCV (RBC) [Entitic vol] 88.7 fL Normal 80.0 - 94.0 fL AO Workflow SS Monocyte distribution width Auto (Bld) [Entitic vol] 20.04 1 High 0.00 - 20.00 AO Workflow SS Comment on above: Result Comment: For adults in ED, MDW>20.0 may be associated with a higher risk of sepsis during the first 12hrs of hospital admission Monocyte, Absolute 0.7 103/mcL Normal 0.2 - 1.0 10^3/mcL AO Workflow SS Monocytes/100 WBC (Bld) 4.8 % Normal 1.7 - 13.0 % AO Workflow SS Natriuretic peptide.B prohormone N-Terminal [Mass/Vol] 26 pg/mL Normal 0 - 125 pg/mL AO ADM SS Comment on above: Interpretive Data: N T-proBNP results of less than 300 pg/mL effectively rules out acute congestive heart failure with 99% negative predictive value. Neutrophil, Absolute 7.5 103/mcL High 2.9 - 6 .2 10^3/mcL AO Workflow SS Neutrophils/100 WBC (Bld) 55.3 % Normal 37.0 - 80.0 % AO Workflow SS Platelet mean volume (Bld) [Entitic vol] 8.8 fL Normal 7.4 - 10.4 fL AO Workflow SS Platelets (Bld) [#/Vol] 289 103/mcL Normal 130 - 400 10^3/mcL AO Workflow SS Potassium [Moles/Vol] 4.0 mmol/L Normal 3.5 - 5.1 mmol/L AO ADM SS RBC (Bld) [#/Vol] 5.52 106/mcL High 4.20 - 5.40 10^6/mcL AO Workflow SS Sodium [Moles/Vol] 142 mmol/L Normal 136 - 145 mmol/L AO ADM SS Troponin I.cardiac DL <= 0.01 ng/mL [Mass/Vol] 4 ng/L Normal 0 - 51 ng/L AO ADM SS Comment on above: Interpretive Data: H igh Sensitive Troponin I Reference Ranges: Female: 0-51 ng/L Male: 0-76 ng/L Testing performed on saperatec using a homogeneous sandwich chemiluminescent immunoassay based on VoipSwitch technology. Urea nitrogen [Mass/Vol] 23 mg/dL High 7 - 18 mg/dL AO ADM SS Urea nitrogen/Creatinine [Mass ratio] 15 ratio Normal 7 - 27 ratio AO ADM SS WBC (Bld) [#/Vol] 13.6 103/mcL High 4.6 - 10.8 10^3/mcL AO Workflow SS 36on 08-01-2023 36 Patient changing to nsurg and transferred to established patient line as can get rescheduled with Dr. Barajas (nsurg appt). Normal [facility] Laboratory - Hematology and Cell countson 07-30-2023 HbA1c (Bld) [Mass fraction] 6.9 % [facility] 36on 07-27-2023 36 File pulled, orders cancelled No team meeting to cancel Added Specialty Comment ALS had already deferred EGD scheduling Normal [facility] 36 Agree w plan for non surg- as bmi 33 at initial visit, and she has 6 months of d/e, and will need to show weight loss. No lab or imagining yet completed. Normal [facility] 36 Patient contacted e office today, as they no longer wish to proceed with workup towards weightloss surgery. Reason for withdraw from program: Doesn't meet surgery requirements [x] Non-Surgical Program Offered [] Patient is not Interested at this time. [x] Patient is Interested in NSURG option, and forwarded to NPT for scheduling. New Psych and BNA appointments cancelled. [x] Sent to surgeons clinical pool to: [x] Clinical staff to cancel any outstanding Testing Labs Referrals Scheduled [facility] Appointments (DE/Psych/Nutrition) [x] Clinical staff to notify ALS via Clinical Documentation if EGD is to be cancelled via pool: [facility] (List Surgeon as provider in the TE) [x] Clinical staff to note in specialty comment date patient has withdrawn from the program [x] Sent to [facility] and Surgical Navigation and [facility] SUR[facility] 260 Clinical therapeutic support staff for notification; Yes Route to NPT only if changing to Medical Program. Surgical Navigator will cancel Team Meeting and pull file Normal [facility] Office Visiton 07-18-2023 Follow-up visit [id number] Marianela Avelar 1975 F Date Provider Department Center 07/18/2023 [id number] None Family History Problem Relation Age of Onset Hypertension Mother Heart disease Mother Obesity Mother Heart disease Father Hypertension Father Diabetes Father Obesity Father Deep vein thrombosis Father Cancer Maternal Grandfather Family Status - Relation Status Age at Mother Father Maternal Grandfather Alive Level of Service:02437 [place] OFFICE/OUTPATIENT ESTABLISHED LOW MDM 20 MIN Reason for Visit and Comments: Weight Loss [495013] - D/E 2 of 6 [facility] Progress Noteon 07-18-2023 Progress Note HPI, PHYSICAL EXAM, AND PLAN Patient is here today for follow up of their physician supervised diet and exercise in preparation for weight loss surgery. Weight trend since last visit: lost 3 lb over 1 month stable This patient's excess weight is causing the following co-morbid conditions at this time DM Plan: Physical Examination: BP 116/79 Pulse 67 Ht 5' 6.75 (1.695 m) Wt 218 lb 6.4 oz (99.1 kg) BMI 34.46 kg/m? General: This patient is alert and oriented X3 General: This patient is awake, alert, and oriented, and is in no apparent distress. Extremities: No cyanosis, clubbing or edema/ No calf tenderness/No restrictions of movement, is ambulatory without assistance. Neurological: Intact x 4 extremities, no focal deficits notes. Skin: No rashes or lesions noted. Assessment of Current Diet and Exercise Current Diet This patient?s current diet is: 80% meal plan Her diet contains adequate amounts of protein, inadequate amounts of healthy fats, adequate amounts of green, leafy vegetables, and adequate amounts of fruits. Her comfort foods include: none Current Activity This patient currently does exercise for 30 Minutes per session, 4 times per week, including the following: walking. Current Eating Behaviors This patients demonstrates the following behaviors as they relate to her eating: structured She eats approximately 5-6 times per day. Her last meal/snack was at 6 am/pm. Plan: DM: continue medical management, DE and plan for metabolic weight loss surgery. stable. continue medical management, Diet & Exercise, and plan for metabolic weight loss surgery. Advised patient that She must continue to adhere to regular monthly visits to meet the requirements of her insurance company. Additionally, She is to adopt eating plan recommendations and show weight loss trend to demonstrate readiness for the changes that will be required following surgery. Patient's weight pattern does demonstrates meal plan adoption and weight loss each month Physician Diet Recommendations provided in Patient Instructions Patient: [x] To return in one month for follow up. Comorbids managing [] Has completed insurance required monthly diet and exercise series [] Needs to continue monthly visits until surgery Current Meds Patient's Medications New Prescriptions No medications on file Previous Medications ALPRAZOLAM (XANAX) 1 MG TABLET Take 1 mg by mouth. ATENOLOL (TENORMIN) 25 MG TABLET Take 25 mg by mouth in the morning and 25 mg in the evening. CHOLECALCIFEROL (VITAMIN D3 PO) Take by mouth. CYANOCOBALAMIN (B-12 COMPLIANCE INJECTION) 1000 MCG/ML KIT Inject as directed. Every 3 weeks EMPAGLIFLOZIN (JARDIANCE) 10 MG Take by mouth daily. EPINEPHRINE (EPIPEN) 0.3 MG/0.3ML INJECTION SYRINGE Inject 0.3 mg into the shoulder, thigh, or buttocks. LEVOTHYROXINE (SYNTHROID, LEVOXYL) 112 MCG TABLET Take 137 mcg by mouth daily. MAGNESIUM OXIDE (MAG-200 PO) Take by mouth daily. NYSTATIN (MYCOSTATIN) CREAM Apply to abdominal skin fold TWICE DAILY OZEMPIC, 1 MG/DOSE, 4 MG/3ML SOLUTION PEN-INJECTOR Modified Medications No medications on file Discontinued Medications No medications on file I spend a total of 20 minutes on the same day of the visit in discussing/counseling the patient regarding the diet and exercise in the preparation for weight loss surgery.Education on the meal plan and 7 rules of eating is provided. Meal prep is encouraged as a foundation of the meal plan. Food journal is encouraged as a feedback system before and after bariatric surgery. Counseling on no nicotine/alcohol before and after surgery. Exercise and its role in the preparation for weight loss surgery is explained. DM Is associated with obesity and weight loss is discussed as a treatment option for DM Full chart review was performed.Clinical documentation is updated and completed. [facility] 36on 06-22-2023 36 Received voicemail o n office line. Returned call no answer left message [facility] Office Visiton 06-15-2023 Follow-up visit [id number] Marianela Avelar 1975 F Date Provider Department Center 06/15/2023 [facility] None Family History Problem Relation Age of Onset Hypertension Mother Heart disease Mother Obesity Mother Heart disease Father Hypertension Father Diabetes Father Obesity Father Deep vein thrombosis Father Cancer Maternal Grandfather Family Status - Relation Status Age at Mother Father Maternal Grandfather Alive Level of Service:81582 [place] OFFICE/OUTPATIENT NEW MODERATE MDM 45 MINUTES Reason for Visit and Comments: Weight Loss [035108] - D/E new 1 of 6 [facility] Progress Noteon 06-15-2023 Progress Note BARIATRIC CARE TIA R SURGICAL WEIGHT LOSS MANAGEMENT PROGRAM SUPERVISED DIET AND EXERCISE ROOMING: INITIAL VISIT Patient: Ama Avelar Date of : 1975 Service Date: 06/15/2023 Patient is here today to initiate physician-supervised diet and exercise as required by their insurance company prior to approval for weight loss surgery. This patient is alone for the evaluation today This is visit 1 of 6 required visits. Weight Metrics: (From Surgical Wet Loss Management) Today's Vital Signs: Non-Surgical Initial Eval Consult Date: 06/15/23 Initial Height: 5' 6.75 (169.5 cm) Initial Weight: 221 lb 3.2 oz (100 kg) [place] Body Weight: 140 lb (63.5 kg) Initial BMI: 34.90 Initial Body Fat %: 41.88 EBW: 81 lb (From NonSurgical Weight Loss Tracker) Falls Risk Assessment Patient does take medications which affect BP or mental status Patient does not have newly prescribed or changed dosage of medications within past 30 days which affect BP or mental status Patient has not fallen in the past 2 months Patient uses the following ambulatory assistive devices: none Patient states the presence of the following traits which increases risk of fall: none Patient is noton home O2 Have you received packet of information by mail from our office which includes: Surgical Checklist, lab orders & referral information? Yes Completed by: Elvia Ballard MA [facility] Progress Note BARIATRIC CARE TIA R SURGICAL WEIGHT LOSS MANAGEMENT PROGRAM PHYSICIAN SUPERVISED DIET AND EXERCISE SURGICAL PREPARATORY REGIMEN PROGRESS NOTE INITIAL EVALUATION Patient: Ama Avelar Service Date: 06/15/23 Date of : 1975 Navigation Plan: Patient History/Assessment Summary: The patient is a pleasant 48 y.o. year old female, who stands Height: 5' 6.75 (169.5 cm) tall with a weight of Weight: 221 lb 3.2 oz (100 kg) pounds, resulting in a BMI of Body mass index is 34.9 kg/m?. kg/m2. She has been overweight for 10+ years, has tried and failed multiple previous diet attempts, and is now in the process of undergoing evaluation for surgical treatment of their obese. She is here today to initiate monthly physician supervised diet and exercise as part of their surgical preparatory regimen. History: Past Medical History: Diagnosis Date Abdominal pain [...] Substance Use Topics Alcohol use: Not Currently This patient's excess weight is causing the following co-morbid conditions at this time:DM Initial Diet & Exercise/SPR Visit Weight Metrics: Date of Initial Diet & Exercise Visit: Consult Date: 06/15/23 Initial Weight: Initial Weight: 221 lb 3.2 oz (100 kg) Initial BMI: Initial BMI: 34.[address] [place] Body Weight: [place] Body Weight: 140 lb (63.5 kg) Excess Body Weight: EBW: 81 lb General: This patient is alert and oriented X3 Physical Examination: BP 117/82 Pulse 61 Ht 5' 6.75 (1.695 m) Wt 221 lb 3.2 oz (100 kg) BMI 34.90 kg/m? General: This patient is obese, and is in no apparent distress. Psychological: Patient is awake, alert and oriented to person, place and time Patient's mood is normal affect Current Diet This patient?s current diet is: 80% meal plan Reviewed PAST DIET HISTORY FORM and CURRENT DIET HISTORY FORM with patient (located in Network Coordinator) Her diet contains adequate amounts of protein, adequate amounts of healthy fats, adequate amounts of green, leafy vegetables, and adequate amounts of fruits. Her comfort foods include: none Current Activity This patient currently does exercise for 30+ per session, 5 times per week, including the following: walking. Current Eating Behaviors This patients demonstrates the following behaviors as they relate to her eating: structured She eats approximately 5-6 times per day. Her last meal/snack was at 6 PM. Plan: Diagnosis Managing: DM: continue medical management, DE and plan for metabolic weight loss surgery. stable. continue medical management, Diet & Exercise, and plan for metabolic weight loss surgery. Off ozempic on jardiance Advised patient that She must adhere to regular monthly visits to meet the requirements of her insurance company. Additionally, She must lose approximately one pound per month to demonstrate readiness for the changes that will be required following surgery. Physician Diet Recommendations provided to patient Patient to return for follow up in one month Current Meds Patient's Medications New Prescriptions No medications on file Previous Medications ALPRAZOLAM (XANAX) 1 MG TABLET Take 1 mg by mouth. ATENOLOL (TENORMIN) 25 MG TABLET Take 25 mg by mouth in the morning and 25 mg in the evening. CHOLECALCIFEROL (VITAMIN D3 PO) Take by mouth. CYANOCOBALAMIN (B-12 COMPLIANCE INJECTION) 1000 MCG/ML KIT Inject as directed. Every 3 weeks EMPAGLIFLOZIN (JARDIANCE) 10 MG Take by mouth daily. EPINEPHRINE (EPIPEN) 0.3 MG/0.3ML INJECTION SYRINGE Inject 0.3 mg into the shoulder, thigh, or buttocks. LEVOTHYROXINE (SYNTHROID, LEVOXYL) 112 MCG TABLET Take 137 mcg by mouth daily. MAGNESIUM OXIDE (MAG-200 PO) Take by mouth daily. NYSTATIN (MYCOSTATIN) CREAM Apply to abdominal skin fold TWICE DAILY OZEMPIC, 1 MG/DOSE, 4 MG/3ML SOLUTION PEN-INJECTOR Modified Medications No medications on file Discontinued Medications No medications on file I spent a total of 45 minutes on the day of the visit in counseling, discussing lifestyle changes that are pertinent to a successful life after bariatric surgery; and reviewing the chart including available communication from the surgeon. 1.Education on meal plan,meal structure, (more content not included)... Normal [facility] Progress Noteon 06-06-2023 Progress Note [facility] BARIATRIC NUTRITION ASSESSMENT / DIET & EXERCISE SURGICAL WEIGHT LOSS MANAGEMENT PROGRAM Date: 06/06/23 Patient Name: Ama Avelar Date of : 1975 Type of Assessment: [x] Surgical Patient - Pre-op Initial Assessment Weight Metrics: Today's Height: 5' 6.75 (1.695 m) Today's Weight: 222 lb 12.8 oz (101 kg) Today's BMI: Body mass index is 35.16 kg/m?. Surgeon: Dr. Rae Surgical Procedure: [x] Sleeve Gastrectomy Preop Diet: 0 wks Medical History: Past Medical History: Diagnosis Date Abdominal pain Anxiety Back pain Daytime sleepiness Diabetes type 2, controlled (HCC) Fatigue GERD (gastroesophageal reflux disease) Hypertension Hypertension Hypothyroidism Joint pain Snoring Stomach ulcer Vitamin D deficiency Current Medications: has a current medication list which includes the following prescription(s): alprazolam, atenolol, cholecalciferol, epinephrine, levothyroxine, nystatin, and ozempic (1 mg/dose). Weight History Patient has been considering weight loss surgery for 2 years Primary reason(s) for weight loss permanent wt loss Number of years over weight > 10 PREVIOUS WEIGHT LOSS ATTEMPTS Method When Amount lost Amount regained Most successful Keto 3 yr ago 100 lb in 10 mo some Keto + IF current none Post Weight Loss Surgery- Type: Patient's current diet quality, relative to the Past weight loss surgery diet is: [x] N/A CURRENT MEAL PLANNING Self Meals planned by X Food shopping done by X Meals cooked by X EXERCISE/CURRENT ACTIVITY None; used to go to gym 3-4x/wk cardio CURRENT EATING HABITS/ADDITIONAL INFORMATION 24 Hour Recall completed: Yes Breakfast: none Snack: none Lunch: chicken breast Dinner: low carb wrap with tuna Snack: string cheese, beef jerky, peanuts crushed with SF pudding Drinks: >64 oz/day water; no juice; no pop; no etoh Comments: Keto and/or IF SUPPORT SYSTEM A. Family knowledgeable about/supportive of plans for weight loss surgery: Yes B. Patient understands that they must have someone in their home 24 for the first week following surgery, or that they must be able to stay with someone for the first week Yes C. 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 Current eating practices that will require change with surgery: Meal frequency RECOMMENDATIONS AND PLAN [x] Educational Materials Provided [x]Strategies for Eating handout given to and discussed with patient [x] Patient cleared for weight loss surgery Patient able to state major diet changes that need to be made following surgery Patient states/demonstrates readiness to make necessary diet changes Diagnoses: T2DM Note: Pt presents for initial BNA. D/E to begin 06/15/2023-6M. Per diet recall and pt interview, pt currently following both Keto and IF. Pt Kcal currently inadequate, around 800 Kcal/day; pt did go off keto yesterday. Reviewed rationale for frequent meals and protein throughout the day. Pt drinks >64 oz/day water. Reviewed BNA packet and rationale for post-op bariatric diet protocol. Pt agreeable to, and aided in developing, the goals as noted below. Pt cleared by nutrition for WLS. Pt informed at time of visit. Goals: (1) Discontinue Keto and IF (2) Pair carb + pro q meal Materials Provided: BNA Packet Follow up: PRN Pt encouraged to call/MyChart with questions. Bariatric Nutrition Assessment completed by: Melissa Rdz RD [facility] Basophil percentageOrdered B y: Altagracia Ambrose on 04-26-2023 Bilirubin [Mass/Vol] 0.40 mg/dL 0.20-1.00 [facility] Comment on above: For patients on eltr ombopag therapy, use of Dimension [place] TBIL is not recommended. Chloride [Moles/Vol] 104 mmol/L 98-107 [facility] Cholesterol [Mass/Vol] 187 mg/dL <200 [facility] Comment on above: <200 mg/dL Desirable 200-240 mg/dL Borderline >240 mg/dL High Risk Glucose [Mass/Vol] 266 mg/dL 74-106 [facility] Comment on above: Glucose result great er than or equal to 200 mg/dLsuggests DIABETES MELLITUS per A.D.A. criteria. Potassium [Moles/Vol] 4.2 mmol/L 3.5-5.1 [facility] Protein [Mass/Vol] 7.6 g/dL 6.4-8.2 [facility] Sodium [Moles/Vol] 135 mmol/L 136-145 [facility] Triglyceride [Mass/Vol] 314 mg/dL <199 [facility] Comment on above: The drugs N-Acetylcy steine and Metamizole may falsely depress this assay.Serum Triglycerides Reference Interval Normal <150 mg/dL Borderline high 150 - 199 mg/dL High 200 - 499 mg/dL Very High > or = 500 mg/dL Laboratory - Chemistry and C hemistry - challengeOrdered By: Altagracia Ambrose on 04-26-2023 ALP [Catalytic activity/Vol] 98 U/L 45-117 [facility] [facility] ALT [Catalytic activity/Vol] 52 U/L 13-56 [facility] CO2 [Moles/Vol] 24.0 mmol/L 21.0-32.0 [facility] Free T4 [Mass/Vol] 1.17 ng/dL 0.76-1.46 [facility] Globulin (S) [Mass/Vol] 4.3 g/dL 2.2-4.2 [facility] Urea nitrogen/Creatinine [Mass ratio] 11.6 mg/mg 10-20 [facility] Laboratory - Hematology and Cell countson 04-26-2023 HbA1c (Bld) [Mass fraction] 8.6 % 4.2-6.3 [facility] No Panel InformationOrdered By: Altagracia Ambrose on 04-26-2023 Estimated GFR (MDRD) Amer 90 mL/min >60 [facility] Comment on above: GFR Calc Estimated GFR (MDRD) Non-Af Amer 74 mL/min >60 [facility] Comment on above: Non- GFR Calc Thyroid Stimulating Hormone (TSH) 3.62 uIU/mL 0.358-3.74 [facility] Urine Microalbumin/Creatinin e Ratio TNP [facility] Comment on above: Test not performed Vitamin B12 Level > 2000 pg/mL 211-911 [facility] Vitamin D 25-Hydroxy 59.2 ng/mL [facility] Comment on above: Vitamin D 25(OH) Sta tus Range Deficiency <20 ng/mL (50nmol/L) Insufficiency 20 - 30 ng/mL (50 - 75 nmol/L) Sufficiency 30 - 100 ng/mL (75 - 250 nmol/L) Toxicity >100 ng/mL (>250 nmol/L) Serum or plasma albumin jud urement (mass/volume)Ordered By: Altagracia Ambrose on 04-26-2023 Albumin [Mass/Vol] 3.3 g/dL 3.2-5.0 [facility] Serum or plasma albumin/glob ulin mass ratioOrdered By: Altagracia Ambrose on 04-26-2023 Albumin/Globulin [Mass ratio] 0.8 {ratio} 0.9-2.4 [facility] Serum or plasma calcium jud urement (mass/volume)Ordered By: Altagracia Ambrose on 04-26-2023 Calcium [Mass/Vol] 9.0 mg/dL 8.5-10.1 [facility] Serum or plasma cholesterol in HDL measurement (mass/volume)Ordered By: Altagracia Ambrose on 04-26-2023 Cholesterol in HDL [Mass/Vol] 34 mg/dL >40 [facility] Comment on above: The drugs N-Acetylcy steine and Metamizole may falsely depress this assay. Reference Range HDL <40 mg/dL Low HDL Cholesterol HDL >or= 60 mg/dL High HDL Cholesterol Serum or plasma cholesterol in VLDL measurement (mass/volume)Ordered By: Altagracia Ambrose on 04-26-2023 Cholesterol in VLDL [Mass/Vol] 63 mg/dL 5-40 [facility] Serum or plasma creatinine m easurement (mass/volume)Ordered By: Altagracia Ambrose on 04-26-2023 Creatinine [Mass/Vol] 0.86 mg/dL 0.55-1.02 [facility] Comment on above: The validity of the calculated GFR & GFRAA in patients over 70 years has not been determined. Clinical correlation is essential. Serum or plasma low density lipoprotein (LDL) cholesterol measurement (mass/volume)Ordered By: Altagracia Ambrose on 04-26-2023 Cholesterol in LDL [Mass/Vol] 90 mg/dL 0-130 [facility] Serum or plasma urea nitroge n measurement (mass/volume)Ordered By: Altagracia Ambrose on 04-26-2023 Urea nitrogen [Mass/Vol] 10 mg/dL 7-18 [facility] Thin prep Papanicolaou smear with manual screeningOrdered By: Altagracia Ambrose on 04-26-2023 Thin prep Papanicolaou smear with manual screening 65 U/L 15-37 [facility] Thin prep Papanicolaou smear with manual screening 7 5-15 [facility] Thin prep Papanicolaou smear with manual screening < 5.0 mg/L NO RANGE EST. [facility] Urine creatinine measurement (mass/volume)Ordered By: Altagracia Ambrose on 04-26-2023 Creatinine (U) [Mass/Vol] 32.30 mg/dL NO RANGE EST. [facility] .Auto Diffon 02-24-2023 Basophil, Absolute 0.2 10 3/mcL Normal 0.0-0.2 [facility] ([place]) Comment on above: Performed By: #### M DW, KAYLA, ANEU, BMP, GFR, CBC #### [address] [address] Basophils/100 WBC (Bld) 1.2 % Normal 0.0-2.5 [facility] ([place]) Comment on above: Performed By: #### M DW, ADIFF, ANEU, BMP, GFR, CBC #### [address] [address] Eosinophil, Absolute 0.2 10 3/mcL Normal 0.0-0.4 [facility] ([place]) Comment on above: Performed By: #### M DW, ADIFF, ANEU, BMP, GFR, CBC #### [address] [address] Eosinophils/100 WBC (Bld) 1.5 % Normal 0.0-7.0 [facility] ([place]) Comment on above: Performed By: #### M DW, ADIFF, ANEU, BMP, GFR, CBC #### [address] [address] Lymphocyte, Absolute 4.1 10 3/mcL High 0.8-3.9 [facility] ([place]) Comment on above: Performed By: #### M DW, ADIFF, ANEU, BMP, GFR, CBC #### [address] [address] Lymphocytes/100 WBC (Bld) 30.1 % Normal 10.0-50.0 [facility] ([place]) Comment on above: Performed By: #### M DW, ADIFF, ANEU, BMP, GFR, CBC #### [address] [address] Monocyte, Absolute 0.7 10 3/mcL Normal 0.2-1.0 [facility] ([place]) Comment on above: Performed By: #### M DW, ADIFF, ANEU, BMP, GFR, CBC #### [address] [address] Monocytes/100 WBC (Bld) 5.2 % Normal 1.7-13.0 [facility] ([place]) Comment on above: Performed By: #### M DW, ADIFF, ANEU, BMP, GFR, CBC #### [address] [address] Neutrophils/100 WBC (Bld) 62.0 % Normal 37.0-80.0 [facility] ([place]) Comment on above: Performed By: #### M SAMMIE, ADIFF, ANEU, BMP, GFR, CBC #### [address] [address] .GFRon 02-24-2023 GFR Non- 82 ml/min/1.73sqm Normal [facility] ([place]) Comment on above: Result Comment: GFR Population mean for , Non- Americans Ages 20-29 = 116 mL/min/1.73 sq.m. Ages 30-39 = 107 mL/min/1.73 sq.m. Ages 40-49 = 99 mL/min/1.73 sq.m. Ages 50-59 = 93 mL/min/1.73 sq.m. Ages 60-69 = 85 mL/min/1.73 sq.m. Ages 70+ = 75 mL/min/1.73 sq.m. Chronic Kidney Disease: Less than 60 mL/min/1.73 square meters End Stage Renal Disease: Less than 15 mL/min/1.73 square meters Performed By: #### M DW, ADSVETLANA, ANEU, BMP, GFR, CBC #### [address] [address] GFR 100 ml/min/1.73sqm Normal [facility] ([place]) Comment on above: Result Comment: GFR Population mean for , Non- Americans Ages 20-29 = 116 mL/min/1.73 sq.m. Ages 30-39 = 107 mL/min/1.73 sq.m. Ages 40-49 = 99 mL/min/1.73 sq.m. Ages 50-59 = 93 mL/min/1.73 sq.m. Ages 60-69 = 85 mL/min/1.73 sq.m. Ages 70+ = 75 mL/min/1.73 sq.m. Chronic Kidney Disease: Less than 60 mL/min/1.73 square meters End Stage Renal Disease: Less than 15 mL/min/1.73 square meters Performed By: #### M DW, ADIFF, ANEU, BMP, GFR, CBC #### [place] [address] .MDWon 02-24-2023 Monocyte Distribution Width 19.86 Normal 0.00-20.00 [facility] ([place]) Comment on above: Result Comment: For ED adult patients suspected of sepsis, MDW<=20.0 does not rule out sepsis or risk of sepsis Performed By: #### M DW, ADIFF, ANEU, BMP, GFR, CBC #### [place] [address] .NEUABSon 02-24-2023 Neutrophil, Absolute 8.4 10 3/mcL High 2.9-6.2 [facility] ([place]) Comment on above: Performed By: #### M DW, ADIFF, ANEU, BMP, GFR, CBC #### [place] [address] BMPon 02-24-2023 BUN/Creatinine Ratio 13 ratio Normal 7-27 [facility] ([place]) Comment on above: Performed By: #### M DW, ADIFF, ANEU, BMP, GFR, CBC #### [place] [address] Calcium [Mass/Vol] 9.3 mg/dL Normal 8.4-10.2 [facility] ([place]) Comment on above: Performed By: #### M DW, ADIFF, ANEU, BMP, GFR, CBC #### [place] [address] Chloride [Moles/Vol] 101 mmol/L Normal 98-107 [facility] ([place]) Comment on above: Performed By: #### M DW, ADIFF, ANEU, BMP, GFR, CBC #### [place] [address] CO2 [Moles/Vol] 29 mmol/L Normal 22-29 [facility] ([place]) Comment on above: Performed By: #### M DW, ADIFF, ANEU, BMP, GFR, CBC #### [facility] [place] [address] [place], [place] [address] Creatinine [Mass/Vol] 0.75 mg/dL Normal 0.55-1.02 [facility] ([place]) Comment on above: Performed By: #### M DW, ADIFF, ANEU, BMP, GFR, CBC #### [address] [address] Electrolyte Balance 9.0 mEq/L Normal 4.0-15.0 [facility] ([place]) Comment on above: Performed By: #### M DW, ADIFF, ANEU, BMP, GFR, CBC #### [address] [address] Glucose [Mass/Vol] 119 mg/dL High 70-105 [facility] ([place]) Comment on above: Performed By: #### M DW, ADIFF, ANEU, BMP, GFR, CBC #### [address] [address] Potassium [Moles/Vol] 4.0 mmol/L Normal 3.5-5.1 [facility] ([place]) Comment on above: Performed By: #### M DW, ADIFF, ANEU, BMP, GFR, CBC #### [address] [address] Sodium [Moles/Vol] 139 mmol/L Normal 136-145 [facility] ([place]) Comment on above: Performed By: #### M DW, ADIFF, ANEU, BMP, GFR, CBC #### [address] [address] Urea nitrogen [Mass/Vol] 10 mg/dL Normal 7-18 [facility] ([place]) Comment on above: Performed By: #### M DW, ADIFF, ANEU, BMP, GFR, CBC #### [address] [address] CBCon 02-24-2023 Erythrocyte distribution width (RBC) [Ratio] 14.0 % Normal 11.5-14.5 [facility] ([place]) Comment on above: Performed By: #### M DW, ADIFF, ANEU, BMP, GFR, CBC #### [address] [address] Hematocrit (Bld) [Volume fraction] 47.0 % Normal 37.0-47.0 [facility] ([place]) Comment on above: Performed By: #### M DW, ADIFF, ANEU, BMP, GFR, CBC #### [place] [address] Hgb 15.9 G/dL Normal 12.0-16.0 [facility] ([place]) Comment on above: Performed By: #### M DW, ADIFF, ANEU, BMP, GFR, CBC #### [place] [address] MCH (RBC) [Entitic mass] 30.3 pg Normal 27.0-31.2 [facility] ([place]) Comment on above: Performed By: #### M DW, ADIFF, ANEU, BMP, GFR, CBC #### [place] [address] MCHC 33.8 G/dL Normal 33.0-37.0 [facility] ([place]) Comment on above: Performed By: #### M DW, ADIFF, ANEU, BMP, GFR, CBC #### [place] [address] MCV (RBC) [Entitic vol] 89.7 fL Normal 80.0-94.0 [facility] ([place]) Comment on above: Performed By: #### M DW, ADIFF, ANEU, BMP, GFR, CBC #### [place] [address] Platelet 274 10 3/mcL Normal 130-400 [facility] ([place]) Comment on above: Performed By: #### M DW, ADIFF, ANEU, BMP, GFR, CBC #### [place] [address] Platelet mean volume (Bld) [Entitic vol] 8.7 fL Normal 7.4-10.4 [facility] ([place]) Comment on above: Performed By: #### M DW, ADIFF, ANEU, BMP, GFR, CBC #### [address] [place], [place] [address] RBC 5.24 10 6/mcL Normal 4.20-5.40 [facility] ([place]) Comment on above: Performed By: #### M DW, ADIFF, ANEU, BMP, GFR, CBC #### [facility] [place] [address] [place], [place] [address] WBC 13.6 10 3/mcL High 4.6-10.8 [facility] ([place]) Comment on above: Performed By: #### M DW, ADIFF, ANEU, BMP, GFR, CBC #### [facility] [place] [id number] [place], [place] [address] LABORATORYOrdered By: Godfrey Palencia on 02-24-2023 Appearance (U) Clear (02/24/23 8:54 PM) Invalid Interpretation Code Clear AO Auto Urine SS Bilirubin Ql (U) Negative (02/24/23 8:54 PM) Invalid Interpretation Code Negative AO Auto Urine SS Color (U) Yellow (02/24/23 8:54 PM) Invalid Interpretation Code AO Auto Urine SS Glucose Test strip (U) [Mass/Vol] Negative Invalid Interpretation Code Negative AO Auto Urine SS HCG ( test) Ql Negative (02/24/23 8:54 PM) Invalid Interpretation Code AO Manual Urine SS Hemoglobin Auto test strip (U) [Mass/Vol] Negative (02/24/23 8:54 PM) Invalid Interpretation Code Negative AO Auto Urine SS Ketones Ql (U) Negative Invalid Interpretation Code Negative AO Auto Urine SS test (u) int Not detected Invalid Interpretation Code AO Manual Urine SS UA Leuk Est Negative (02/24/23 8:54 PM) Invalid Interpretation Code Negative AO Auto Urine SS UA Nitrite Negative (02/24/23 8:54 PM) Invalid Interpretation Code Negative AO Auto Urine SS UA pH 5.5 (02/24/23 8:54 PM) Invalid Interpretation Code 5.0 - 8.0 AO Auto Urine SS UA Protein Negative Invalid Interpretation Code Negative AO Auto Urine SS UA Spec Grav <=1.005 *ABN* (02/24/23 8:54 PM) Invalid Interpretation Code 1.015-1.02 5 AO Auto Urine SS UA Specimen Type Void (02/24/23 8:54 PM) Invalid Interpretation Code AO Auto Urine SS UA Urobilinogen 0.2 E.U./dL Invalid Interpretation Code 0.2-1.0 AO Auto Urine SS LABORATORYOrdered By: SYSTEM SYSTEM on 02-24-2023 Basophil, Absolute 0.2 103/mcL Invalid Interpretation Code 0.0 - 0.2 10^3/mcL AO Workflow SS Basophils/100 WBC (Bld) 1.2 % Invalid Interpretation Code 0.0 - 2.5 % AO Workflow SS Calcium [Mass/Vol] 9.3 mg/dL Invalid Interpretation Code 8.4 - 10.2 mg/dL AO ADM SS Chloride [Moles/Vol] 101 mmol/L Invalid Interpretation Code 98 - 107 mmol/L AO ADM SS CO2 [Moles/Vol] 29 mmol/L Invalid Interpretation Code 22 - 29 mmol/L AO ADM SS Creatinine [Mass/Vol] 0.75 mg/dL Invalid Interpretation Code 0.55 - 1.02 mg/dL AO ADM SS Electrolyte Balance 9.0 mEq/L Invalid Interpretation Code 4.0 - 15.0 mEq/L AO ADM SS Eosinophil, Absolute 0.2 103/mcL Invalid Interpretation Code 0.0 - 0.4 10^3/mcL AO Workflow SS Eosinophils/100 WBC (Bld) 1.5 % Invalid Interpretation Code 0.0 - 7.0 % AO Workflow SS Erythrocyte distribution width (RBC) [Ratio] 14.0 % Invalid Interpretation Code 11.5 - 14.5 % AO Workflow SS GFR/1.73 sq M.predicted among blacks MDRD (S/P/Bld) [Vol rate/Area] 100 ml/min/1.73sqm Invalid Interpretation Code AO Chemistry S Comment on above: Interpretive Data: GFR Population mean for , Non- Americans Ages 20-29 = 116 mL/min/1.73 sq.m. Ages 30-39 = 107 mL/min/1.73 sq.m. Ages 40-49 = 99 mL/min/1.73 sq.m. Ages 50-59 = 93 mL/min/1.73 sq.m. Ages 60-69 = 85 mL/min/1.73 sq.m. Ages 70+ = 75 mL/min/1.73 sq.m. Chronic Kidney Disease: Less than 60 mL/min/1.73 square meters End Stage Renal Disease: Less than 15 mL/min/1.73 square meters GFR/1.73 sq M.predicted among non-blacks MDRD (S/P/Bld) [Vol rate/Area] 82 ml/min/1.73sqm Invalid Interpretation Code AO Chemistry S Comment on above: Interpretive Data: GFR Population mean for , Non- Americans Ages 20-29 = 116 mL/min/1.73 sq.m. Ages 30-39 = 107 mL/min/1.73 sq.m. Ages 40-49 = 99 mL/min/1.73 sq.m. Ages 50-59 = 93 mL/min/1.73 sq.m. Ages 60-69 = 85 mL/min/1.73 sq.m. Ages 70+ = 75 mL/min/1.73 sq.m. Chronic Kidney Disease: Less than 60 mL/min/1.73 square meters End Stage Renal Disease: Less than 15 mL/min/1.73 square meters Glucose [Mass/Vol] 119 mg/dL Invalid Interpretation Code 70 - 105 mg/dL AO ADM SS Hematocrit (Bld) [Volume fraction] 47.0 % Invalid Interpretation Code 37.0 - 47.0 % AO Workflow SS Hemoglobin (Bld) [Mass/Vol] 15.9 G/dL Invalid Interpretation Code 12.0 - 16.0 G/dL AO Workflow SS Lymphocyte, Absolute 4.1 103/mcL Invalid Interpretation Code 0.8 - 3.9 10^3/mcL AO Workflow SS Lymphocytes/100 WBC (Bld) 30.1 % Invalid Interpretation Code 10.0 - 50.0 % AO Workflow SS MCH (RBC) [Entitic mass] 30.3 pg Invalid Interpretation Code 27.0 - 31.2 pg AO Workflow SS MCHC 33.8 G/dL Invalid Interpretation Code 33.0 - 37.0 G/dL AO Workflow SS MCV (RBC) [Entitic vol] 89.7 fL Invalid Interpretation Code 80.0 - 94.0 fL AO Workflow SS Monocyte distribution width Auto (Bld) [Entitic vol] 19.86 1 Invalid Interpretation Code 0.00 - 20.00 AO Workflow SS Comment on above: Result Comment: For ED adult patients suspected of sepsis, MDW<=20.0 does not rule out sepsis or risk of sepsis Monocyte, Absolute 0.7 103/mcL Invalid Interpretation Code 0.2 - 1.0 10^3/mcL AO Workflow SS Monocytes/100 WBC (Bld) 5.2 % Invalid Interpretation Code 1.7 - 13.0 % AO Workflow SS Neutrophil, Absolute 8.4 103/mcL Invalid Interpretation Code 2.9 - 6.2 10^3/mcL AO Workflow SS Neutrophils/100 WBC (Bld) 62.0 % Invalid Interpretation Code 37.0 - 80.0 % AO Workflow SS Platelet mean volume (Bld) [Entitic vol] 8.7 fL Invalid Interpretation Code 7.4 - 10.4 fL AO Workflow SS Platelets (Bld) [#/Vol] 274 103/mcL Invalid Interpretation Code 130 - 400 10^3/mcL AO Workflow SS Potassium [Moles/Vol] 4.0 mmol/L Invalid Interpretation Code 3.5 - 5.1 mmol/L AO ADM SS RBC (Bld) [#/Vol] 5.24 106/mcL Invalid Interpretation Code 4.20 - 5.40 10^6/mcL AO Workflow SS Sodium [Moles/Vol] 139 mmol/L Invalid Interpretation Code 136 - 145 mmol/L AO ADM SS Urea nitrogen [Mass/Vol] 10 mg/dL Invalid Interpretation Code 7 - 18 mg/dL AO ADM SS Urea nitrogen/Creatinine [Mass ratio] 13 ratio Invalid Interpretation Code 7 - 27 ratio AO ADM SS WBC (Bld) [#/Vol] 13.6 103/mcL Invalid Interpretation Code 4.6 - 10.8 10^3/mcL AO Workflow SS PREGUon 02-24-2023 HCG ( test) Ql (U) Negative Normal [facility] ([place]) Comment on above: Performed By: #### P REGU, UA #### [address] [address] test (u) int Not detected Invalid Interpretation Code [facility] ([place]) Comment on above: Performed By: #### P REGU, UA #### [facility] [place] [id number] [place], [place] [address] UAon 02-24-2023 Color (U) Yellow Normal [facility] ([place]) Comment on above: Performed By: #### P REGU, UA #### [facility] [place] [address] [place], [place] [address] Glucose (U) [Mass/Vol] Negative Normal Negative [facility] ([place]) Comment on above: Performed By: #### P REGU, UA #### [address] [address] Ketones Ql (U) Negative Normal Negative [facility] ([place]) Comment on above: Performed By: #### P REGU, UA #### [place] [place] [address] UA Appear Clear Normal Clear [facility] ([place]) Comment on above: Performed By: #### P REGU, UA #### [place] [address] UA Blood Negative Normal Negative [facility] ([place]) Comment on above: Performed By: #### P REGU, UA #### [place] [address] UA Leuk Est Negative Normal Negative [facility] ([place]) Comment on above: Performed By: #### P REGU, UA #### [place] [address] UA Nitrite Negative Normal Negative [facility] ([place]) Comment on above: Performed By: #### P REGU, UA #### [place] [address] UA pH 5.5 Normal 5.0 - 8.0 [facility] ([place]) Comment on above: Performed By: #### P REGU, UA #### [place] [address] UA Protein Negative Normal Negative [facility] ([place]) Comment on above: Performed By: #### P REGU, UA #### [place] [address] UA Spec Grav <=1.005 Abnormal 1.015-1.02 5 [facility] ([place]) Comment on above: Performed By: #### P REGU, UA #### [place] [address] UA Specimen Type Void Normal [facility] ([place]) Comment on above: Performed By: #### P REGU, UA #### [place] [address] UA Urobilinogen 0.2 E.U./dL Normal 0.2-1.0 [facility] ([place]) Comment on above: Performed By: #### P REGU, UA #### [facility] [address] [place], [place] [address] Urobilinogen (U) [Mass/Vol] Negative Normal Negative [facility] ([place]) Comment on above: Performed By: #### P REGU, UA #### [facility] [address] [place], [place] [address] 36on 01-09-2023 36 Patient states that she had a message to call and ask for Ivett to schedule an appointment. Please advise. Thank you [facility] 36on 01-08-2023 36 Name of caller: Kamlesh acosta Contact phone number: [phone] Relationship to Patient: Patient Provider: Dr. Rdz Practice: Weight Management Chief Complaint/Reason for Call: Ama called in to cancel her appt today. She woke up not feeling well. She will call back later to reschedule. Please advise. Best time of day caller can be reached: Any Patient advised that office/PCP has 24-48 business hours to return their call: No Normal [facility] 36on 12-20-2022 36 AGD Last OV-10/25/22 with AGD for new pt appt. Pt has not been seen by RD as it was cancelled,as well as appt with NK on 11/15/22, by pt. Will route to RN MDS for direction as pt should follow up with plastic surgeon but does not want to go back. [facility] 36 Name of Caller: Kamlesh acosta Contact Reason for Appointment: Patient states that the surgery was done by Dr. Escalona and it has left her very disfigured with increased pain. She states that she does not want to go and see him again. Please advise. Office Name: [facility] Medication Refills need, if any: none Medication Name: n/a [facility] 36 Pt would like to hav e an appt scheduled w Dr. Rae due to pain in her abdomen from what she believes is from an abdominoplasty she had in 2021. She states that she had called [facility] yesterday and they directed her to call this office for help with this issue. She is however actively in the [facility] program. [place] [id number] 36 Orders mailed [place] [id number] 36 Name of caller: Kamlesh acosta Contact phone number: [phone] Relationship to Patient: Patient Provider: Dr. Rdz Practice: Weight Management Chief Complaint/Reason for Call: Ama called in wanting to reschedule her appointment today. Please advise. Best time of day caller can be reached: Any Patient advised that office/PCP has 24-48 business hours to return their call: No [place] 1341410-31-2022 36 Signed. [facility] ADDENDUMNOTEon 10-31-2022 ADDENDUMNOTE Addended by: NYLA VAZ on: 10/31/2022 11:00 AM Modules accepted: Orders [address] 10-30-2022 36 Orders pended, pre-o p checklist scanned, EGD order sent to [facility] 36 PLAN Encounter Diagnoses Name Primary? Class 2 obesity with body mass index (BMI) of 35.0 to 35.9 in adult, unspecified obesity type, unspecified whether serious comorbidity present Primary hypertension Controlled type 2 diabetes mellitus without complication, unspecified whether parts counterman insulin use (HCC) Hypothyroidism, unspecified type Back pain, unspecified back location, unspecified back pain laterality, unspecified chronicity I have recommended proceeding with the evaluation and work-up for the primary procedure as outlined below: PATIENT SUMMARY Ama Rae 47 y.o. female with Body mass index is 33.23 kg/m?. 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 Cheek and on Ozempic and Phenteramine/Topiromate Had recent BMI >35 with PCP - please obtain notes to document BMI> 35 and DM2 PCP: BARI DESAI INITIAL TESTING RESULTS Labwork [x] CMP, TSH, [...] full chart rreview was performed by myself. [facility] ADDENDUMNOTEon 10-30-2022 ADDENDUMNOTE Addended by: JESS OWEN on: 10/30/2022 11:17 AM Modules accepted: Orders [facility] Progress Noteon 10-30-2022 Progress Note ENDOSCOPY ORDERS To be scheduled with: Dr. Rae Patient is: Pre-op/Pre-Bariatric Surgery CPT code: EGD with biopsy- CPT 11304 Diagnosis: Dyspepsia- K30 If pre-op, Diet & Exercise Requirements are, and started/scheduled on 11/15/2022: 6 months Home O2: No Known Difficult Intubation: No [facility] Progress Note 01/09/23 LVM to sched ule EGD. [facility] Progress Note Spoke with patient a nd she states had a GES done 09/19/2022 and EGD done 08/02/[address] Dr Roy 's office @ [phone] and requested reports to be faxed to our office. [facility] Progress Note 01/11/23 Spoke to the patient. She states she had an EGD done at another facility a few months ago. I advised her to contact the office to let you know where it was done and who performed as you will need to obtain records. You may want to reach out to her as well. Will wait for further instructions regarding scheduling EGD. Thanks. [facility] Progress Note Records received and placed in physician folder for review. [facility] Progress Note Spoke with patient a nd has a in family she is making arrangements for and will be contacting office in 1-2 weeks to get back on track. [facility] Progress Note No currents appts in program [facility] 36on 10-27-2022 36 Reviewed records. BMI as documented in PCP office notes: June 2022- bmi 35.5. Office note does indicate visit is for DM and obesity management. Pt had been on Ozempic, dc due to GI side effects. The return visit in September -2022 showed weight down by 10 lb. Spoke to pt by phone about the process . She is aware down the road- 9 months upon completion of all requirements she may be denied, and a peer to peer completed. This may yield a reversal, in 50 % of cases. She wishes to proceed. The records I reviewed also show a lung nodule RML and RLL. A PET scan was completed Dec 2021- no suspicion of malignancy in RML but RLL indeterminate. I advised, she will want to bring this to attention of Pulm she sees for clearance. 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 Quit 2 yrs ago. [facility] 36on 10-26-2022 36 Records obtained and to RN MDS for review. [facility] 36on 10-25-2022 36 Fax to PCP with requ est for last 3 OV notes. Confirmation obtained. [facility] 36 ----- Message from German Vaz APRN - [employer] sent at 10/25/2022 2:07 PM EDT ----- Please obtain last 3 office notes from pts pcp, Giselle. [facility] Office Visiton 10-25-2022 Follow-up visit [id number] Marianela Avelar sa 1975 F Date Provider Department Center 10/25/2022 [id number] RAE BCC SURG None Family History Problem Relation Age of Onset Hypertension Mother Heart disease Mother Obesity Mother Heart disease Father Hypertension Father Diabetes Father Obesity Father Deep vein thrombosis Father Cancer Maternal Grandfather Family Status - Relation Status Age at Mother Father Maternal Grandfather Alive Level of Service:64018 [place] OFFICE/OUTPATIENT NEW MODERATE MDM 45-59 MINUTES Reason for Visit and Comments: Weight Management [645] - NEW [facility] Progress Noteon 10-25-2022 Progress Note see TE created for r ecords request [facility] Progress Note CRISTIAN RAE MD , F [facility], [facility] MINIMALLY INVASIVE & METABOLIC / BARIATRIC SURGERY [facility] BARIATRIC EVALUATION - HISTORY AND PHYSICAL 10/25/2022 PATIENT: Ama Avelar DATE OF : 1975 HISTORY OF PRESENT ILLNESS Chief Complaint: Obesity and associated conditions. Ama Avelar is a 47 y.o. female with obesity and associated conditions who presents to the [facility] [place] for evaluation for metabolic/bariatric surgery. The patient stands Height: 5' 6.75 (169.5 cm) ([facility]) tall with a weight of Weight: 210 lb 9.6 oz (95.5 kg) , and has a BMI of Body mass index is 33.23 kg/m?.. The patient has failed multiple attempts at [...] EXAM BP 111/80 Pulse 76 Temp 36.6 ?C (97.9 ?F) Resp 16 Ht 5' 6.75 (1.695 m) Comment: bcc Wt 210 lb 9.6 oz (95.5 kg) BMI 33.23 kg/m? General: This patient is awake, alert, and [...] hospital-acquired and intra-abdominal infection, anastomotic stricture, and (more content not included)... Normal [facility] Progress Note CRISTIAN G. KYRA MD , F [facility] MINIMALLY INVASIVE & METABOLIC / BARIATRIC SURGERY [facility] BARIATRIC EVALUATION - HISTORY AND PHYSICAL 10/25/2022 PATIENT: Ama Avelar DATE OF : 1975 HISTORY OF PRESENT ILLNESS Chief Complaint: Obesity and associated conditions. Ama Avelar is a 47 y.o. female with obesity and associated conditions who presents to the [facility] [place] for evaluation for metabolic/bariatric surgery. The patient stands Height: 5' 6.75 (169.5 cm) ([facility]) tall with a weight of Weight: 210 lb 9.6 oz (95.5 kg) , and has a BMI of Body mass index is 33.23 kg/m?.. The patient has failed multiple attempts at [...] EXAM BP 111/80 Pulse 76 Temp 36.6 ?C (97.9 ?F) Resp 16 Ht 5' 6.75 (1.695 m) Comment: bcc Wt 210 lb 9.6 oz (95.5 kg) BMI 33.23 kg/m? General: This patient is awake, alert, and [...] And we discussed the need for post-operative vi (more content not included)... [facility] Progress Note BARIATRIC CARE TIA Kohli SURGICAL WEIGHT LOSS MANAGEMENT PROGRAM Rooming Note [...] Heart Rate: 76 Resp: 16 Temp: 36.6 ?C (97.9 ?F) Baseline Measures Initial Height: 5' 6.75 (169.5 [...] on home O2 Completed by: Brenna Park [facility] Absolute lymphocyte countOrd ered By: Rik Landa on 10-17-2022 Lymphocytes Auto (Unsp spec) [#/Vol] 3.15 10*3/uL 0.83-4.51 [facility] Basophil percentageOrdered B y: Rik Landa on 10-17-2022 Basophil percentage 0-5 SEEN /hpf 0-5 [facility] Basophils/100 WBC (Bld) 0.7 % 0-1 [facility] Bilirubin [Mass/Vol] 0.30 mg/dL 0.20-1.00 [facility] Comment on above: For patients on eltr ombopag therapy, use of Dimension Clark TBIL is not recommended. Chloride [Moles/Vol] 109 mmol/L 98-107 [facility] Eosinophils/100 WBC (Bld) 0.8 % 0-5 [facility] Glucose [Mass/Vol] 113 mg/dL 74-106 [facility] Comment on above: Fasting Glucose resu lt from 100 to 125 mg/dL suggests IMPAIRED HOMEOSTASIS per A.D.A. criteria. Lactate [Moles/Vol] 1.2 mmol/L 0.4-2.0 [facility] Neutrophils (Bld) [#/Vol] 6.1 10*3/uL 2.0-7.7 [facility] Neutrophils/100 WBC (Bld) 60.7 % 47-70 [facility] Potassium [Moles/Vol] 3.8 mmol/L 3.5-5.1 [facility] Protein [Mass/Vol] 7.9 g/dL 6.4-8.2 [facility] Sodium [Moles/Vol] 138 mmol/L 136-145 [facility] WBC (Bld) [#/Vol] 10.0 10*3/uL 4.4-11.0 [facility] Bilirubin Test strip Ql (U)O rdered By: Rik Landa on 10-17-2022 Bilirubin Ql (U) Negative Negative [facility] Blood erythrocytes count (nu mber/volume)Ordered By: Rik Landa on 10-17-2022 RBC (Bld) [#/Vol] 5.12 10*6/uL 4.2-5.4 [facility] Blood hemoglobin measurement (mass/volume)Ordered By: Rik Landa on 10-17-2022 Hemoglobin (Bld) [Mass/Vol] 15.7 g/dL 12.0-15.0 [facility] Blood lymphocytes/100 leukoc ytesOrdered By: Rik Landa on 10-17-2022 Lymphocytes/100 WBC (Bld) 31.5 % 19-41 [facility] Blood monocytes/100 leukocyt esOrdered By: Rik Landa on 10-17-2022 Monocytes/100 WBC (Bld) 5.8 % 0-10 [facility] Blood platelet mean volumeOr dered By: Rik Landa on 10-17-2022 Platelet mean volume (Bld) [Entitic vol] 10.7 fL 6.2-12.0 [facility] Determination of erythrocyte mean corpuscular volume (MCV)Ordered By: Rik Landa on 10-17-2022 MCV (RBC) [Entitic vol] 93.8 fL 81-99 [facility] Direct bilirubinOrdered By: Rik Landa on 10-17-2022 Bilirubin.direct [Mass/Vol] 0.11 mg/dL 0.00-0.30 [facility] Hematocrit Auto (Bld) [Volum e fraction]Ordered By: Rik Landa on 10-17-2022 Hematocrit (Bld) [Volume fraction] 48.0 % 37-47 [facility] Ketones Test strip Ql (U)Ord ered By: Rik Landa on 10-17-2022 Ketones Ql (U) Negative Negative [facility] Laboratory - Chemistry and C hemistry - challengeOrdered By: Rik Landa on 10-17-2022 HCG ( test) Ql (U) Negative [facility] Comment on above: Very dilute urine sp ecimens, as indicated by a low specificgravity, may not contain marketing representative levels of hCG. If is still suspected, a first morning urinespecimen should be collected 48 hours later and tested. ALP [Catalytic activity/Vol] 98 U/L 45-117 [facility] ALT [Catalytic activity/Vol] 39 U/L 13-56 [facility] CO2 [Moles/Vol] 26.0 mmol/L 21.0-32.0 [facility] Globulin (S) [Mass/Vol] 4.3 g/dL 2.2-4.2 [facility] Lipase [Catalytic activity/Vol] 68 U/L 13-75 [facility] Comment on above: Please note:LIPASE r evised reference range effective 22. New Lipase methodology. Expected to produce lower values than the previous assay method. NEW Reference Range: 13 - 75 U/L Urea nitrogen/Creatinine [Mass ratio] 10.5 mg/mg 10-20 [facility] Laboratory - Hematology and Cell countsOrdered By: Rik Landa on 10-17-2022 Erythrocyte distribution width (RBC) [Entitic vol] 44.1 fL 35.1-43.9 [facility] Erythrocyte distribution width (RBC) [Ratio] 12.8 % 11.6-14.6 [facility] Immature granulocytes/100 WBC (Bld) 0.500 % 0.0-0.9 [facility] Comment on above: IG% - Immature Granu locytes (promyelocytes, myelocytes and metamyelocytes) > 1% indicates that a LEFT SHIFT is Present. MCH (RBC) [Entitic mass] 30.7 pg 27.0-32.0 [facility] Nucleated RBC/100 WBC (Bld) [Ratio] 0 % 0-5 [facility] MCHC Auto (RBC) [Mass/Vol]Or dered By: Rik Landa on 10-17-2022 MCHC (RBC) [Mass/Vol] 32.7 g/dL 32-36 [facility] Mucus LM Ql (Urine sed)Order ed By: Rik Landa on 10-17-2022 Mucus Ql (Urine sed) 0 SEEN /hpf [facility] Nitrite Test strip Ql (U)Ord ered By: Rik Landa on 10-17-2022 Nitrite Ql (U) Negative Negative [facility] No Panel InformationOrdered By: Rik Landa on 10-17-2022 Estimated Creatinine Clearance Calc 67.06 ml/min [facility] Estimated GFR (MDRD) Amer 81 mL/min >60 [facility] Comment on above: GFR Calc Estimated GFR (MDRD) Non-Af Amer 67 mL/min >60 [facility] Comment on above: Non- GFR Calc Platelets bldOrdered By: Misael Landa on 10-17-2022 Platelets (Bld) [#/Vol] 356 10*3/uL 150-450 [facility] Protein Test strip Ql (U)Ord ered By: Rik Landa on 10-17-2022 Protein Ql (U) 15 mg/dl Negative [facility] Serum or plasma albumin jud urement (mass/volume)Ordered By: Rik Landa on 10-17-2022 Albumin [Mass/Vol] 3.6 g/dL 3.2-5.0 [facility] Serum or plasma calcium jud urement (mass/volume)Ordered By: Rik Landa on 10-17-2022 Calcium [Mass/Vol] 9.4 mg/dL 8.5-10.1 [facility] Serum or plasma creatinine m easurement (mass/volume)Ordered By: Rik Landa on 10-17-2022 Creatinine [Mass/Vol] 0.95 mg/dL 0.55-1.02 [facility] Comment on above: The validity of the calculated GFR & GFRAA in patients over 70 years has not been determined. Clinical correlation is essential. Serum or plasma urea nitroge n measurement (mass/volume)Ordered By: Rik Landa on 10-17-2022 Urea nitrogen [Mass/Vol] 10 mg/dL 7-18 [facility] Squamous epithelial cells de tection in urine sediment by light microscopyOrdered By: Rik Landa on 10-17-2022 Epithelial cells.squamous LM Ql (Urine sed) 0-5 SEEN /hpf 5-10 [facility] Thin prep Papanicolaou smear with manual screeningOrdered By: Rik Landa on 10-17-2022 Thin prep Papanicolaou smear with manual screening 35 U/L 15-37 [facility] Thin prep Papanicolaou smear with manual screening 3 5-15 [facility] Urine blood detectionOrdered By: Rik Landa on 10-17-2022 RBC Ql (U) 10 /ul Negative [facility] RBC Ql (U) 0 SEEN /hpf 0-5 [facility] Urine clarityOrdered By: Misael Landa on 10-17-2022 Clarity (U) Clear Clear [facility] Urine color determinationOrd ered By: Rik Landa on 10-17-2022 Color (U) Yellow Yellow [facility] Urine glucose detectionOrder ed By: Rik Landa on 10-17-2022 Glucose Ql (U) Normal mg/dl Normal [facility] Urine leukocyte esterase det ection by dipstickOrdered By: Rik Landa on 10-17-2022 Leukocyte esterase Test strip Ql (U) 25 /ul Negative [facility] Urine pHOrdered By: Rik mitchell on 10-17-2022 pH (U) 5.0 [pH] 5.0 - 8.0 [facility] Urine sediment bacteria coun t by microscopy (number/high power field)Ordered By: Rik Landa on 10-17-2022 Bacteria LM.HPF (Urine sed) [#/Area] 0 /[HPF] None Seen [facility] Urine specific gravity measu rementOrdered By: Rik Landa on 10-17-2022 Specific gravity (U) [Rel density] 1.010 1.002-1.03 0 [facility] Urobilinogen Auto test strip Ql (U)Ordered By: Rik Landa on 10-17-2022 Urobilinogen Ql (U) Normal mg/dl Normal [facility] No Panel InformationOrdered By: Dr. Desai on 09-12-2022 Thyroid Stimulating Hormone (TSH) 0.57 uIU/mL 0.358-3.74 [facility] Office Visiton 08-24-2022 Follow-up visit [id number] Marianela Avelar 1975 F Date Provider Department Center 08/24/2022 10-PIPO IZQUIERDO [facility] PLASTIC None No family history on file Level of Service:80443 [place] OFFICE/OUTPATIENT NEW MODERATE MDM 45-59 MINUTES Reason for Visit and Comments: New Patient [542] Normal [facility] Progress Noteon 08-24-2022 Progress Note 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 Plasti c Surgery - Adult Attending Consult Note Reason for Consult: abdominoplasty revisions CHIEF COMPLAINT: abdominal wall fullness History Obtained From: patient HISTORY OF PRESENT ILLNESS: The patient is a 47 y.o. female who [facility] in [facility]. Patient has pain, firmness, and fullness about her abdominal wall with which she is displeased; she is concerned for a recurrent seroma She is also status post delayed wound healing for her left breast with widened vertical scar which she would also like revised Patient also with dog ears R>L for abdominal incision that she would like revised The patient is status post a great deal of weight loss via diet and exercise; the patient states that she would like to lose about 30 more pounds and is amenable to doing this before undertaking any revisions On Ozempic and levothyroxine Denies heart or lung disease; inhalers listed in outside records No A1c available; controlled type 2 diabetes listed in medical history Quit smoking a couple of years ago Past Medical History: Past Medical History: Diagnosis Date Diabetes type 2, controlled (HCC) Hypertension Hypothyroidism Vitamin D deficiency Past Surgical History: Past Surgical History: Procedure Laterality Date BELT ABDOMINOPLASTY 09/14/2021 BREAST REDUCTION 09/14/2021 SECTION, LOW TRANSVERSE x2 SKIN SURGERY spider bit Current Medications: Current Outpatient Medications on File Prior to Visit Medication Sig Dispense Refill ALPRAZolam (Xanax) 1 MG tablet Take 1 mg by mouth. atenolol (Tenormin) 25 MG tablet Take 25 mg by mouth in the morning and 25 mg in the evening. cholecalciferol (Vitamin D-3) 125 MCG (5000 UT) capsule Take 125 mcg by mouth daily. EPINEPHrine (Epipen) 0.3 MG/0.3ML injection syringe Inject 0.3 mg into the shoulder, thigh, or buttocks. levothyroxine (Synthroid, Levoxyl) 112 MCG tablet Take 112 mcg by mouth daily. nystatin (Mycostatin) cream Apply to abdominal skin fold TWICE DAILY Ozempic, 1 MG/DOSE, 4 MG/3ML solution pen-injector No current facility-administered medications on file prior to visit. Allergies: Bee pollen and Ondansetron Social History: Social History Socioeconomic History Marital status: Single Spouse name: Not on file Number of children: Not on file Years of education: Not on file Highest education level: Not on file Occupational History Not on file Tobacco Use Smoking status: Former Types: Cigarettes Smokeless tobacco: Former Substance and Sexual Activity Alcohol use: Not on file Drug use: Not on file Sexual activity: Not on file Other Topics Concern Not on file Social History Narrative Not on file Social Determinants of Health Financial Resource Strain: Not on file Food Insecurity: Not on file Transportation Needs: Not on file Physical Activity: Not on file Stress: Not on file Social Connections: Not on file Intimate Partner Violence: Not on file Housing Stability: Not on file Family History: No family history on file. REVIEW OF SYSTEMS: Negative except as stated in HPI PHYSICAL EXAM: VITALS: Ht 5' 6 (1.676 m) Wt 220 lb (99.8 kg) BMI 35.51 kg/m? CONSTITUTIONAL: awake, alert, cooperative, no apparent distress, and appears stated age LUNGS: breathing comfortably on room air CARDIOVASCULAR: hemodynamically stable ABDOMEN: with healed transverse lower abdominal incision Patient's areas of tenderness, firmness and fullness correspond to intra-abdominal fullness and scar tissue/suture material from previous plication With some fullness lateral abdominoplasty scar R>L EXTREMITIES: no signs of clubbing or cyanosis. MUSCULOSKELETAL: negative for flaccid muscle tone or spastic movements. SKIN: gross examination reveals no signs of rashes, or diaphoresis. NEURO: grossly intact and symmetric Left breast vertical limb with widened scar Data- Radiology Review: CT review pending, need to upload disc IMPRESSION/RECOMMENDATIONS: Diagnosis: 1-status post abdominoplasty 2-status post breast reduction Discussed possible revision procedures ranging from liposuction to scar revisions. I discussed that while revision plication is a possibility I am not sure how much benefit the patient will derive from it. The patient desires weight loss. Will follow up for weight check in November. Referral to weight management placed. Pipo Izquierdo MD Time attestation: I spent 45 minutes obtaining history, reviewing imaging and laboratory results, performing a physical exam and providing patient education and counseling. Normal [facility] Glucose Glucometer (BldC) [M ass/Vol]Ordered By: Cedric Roy on 08-02-2022 Glucose [Mass/Vol] 111 mg/dL 74-106 [facility] Comment on above: MANAGEMENT OF PATIEN T CARE PER NURSING PROTOCOL CT Abdomen / Pelvis w josha kamlesh 07-26-2022 CT Abdomen / Pelvis w contrast CT ABDOMEN AND PELVIS WITH CONTRAST EXAM DATE AND TIME: 07/26/2022 8:37 AM INDICATION: 47 years Female with [id number]: Swollen abdomen. Left lower quadrant pain. COMPARISON: CT abdomen and pelvis 11/06/2021 TECHNIQUE: Transaxial sequence through the abdomen and pelvis with 3 mm reconstruction with dynamic intravenous infusion of 75 mL of 370 mg% contrast media. Coronal and sagittal reconstructions included. Dose reduction was employed with automated exposure control. Dose reduction was employed with automated exposure control. FINDINGS: Chest base: Stable 3 mm noncalcified right middle lobe pulmonary nodule (series 2 image 0). Stable 4 mm noncalcified subpleural right middle lobe pulmonary nodule (series 2 image 6).. Liver: Diffuse hepatic steatosis.. No focal lesion. Biliary tree: Normal caliber. Pancreas: Normal. Spleen: Normal. Adrenals: Normal. Kidneys: Symmetric contrast enhancement without hydronephrosis. No focal lesion. Free fluid: Subtle edema and nodularity in the central mesentery, unchanged. This likely reflects mild mesenteric panniculitis.. Vasculature: Mild atherosclerotic changes Bowel: Colonic diverticulosis. No evidence of acute diverticulitis. No bowel obstruction. Lymphadenopathy: Upper normal sized periportal lymph nodes, unchanged, and likely reactive in nature. Pelvic organs/viscera: Unremarkable. Osseous structures: Degenerative change of the spine. Mild bilateral hip joint DJD. Few small benign bone islands.. Soft Tissues: Interval resolution of the previously visualized loculated fluid collection within the left ventral pelvic subcutaneous tissues. Mild residual linear scarring in this region. Redemonstration of ventral pelvic subcutaneous edema. No soft tissue gas. No drainable abscess.. IMPRESSION: No acute abnormality within the abdomen/pelvis. Redemonstration of ventral pelvic subcutaneous edema. No residual loculated fluid collection. Colonic diverticulosis. Diffuse hepatic steatosis. Stablee 3 mm and 4 mm right middle lobe pulmonary nodules. These are unchanged since October of 2021. No follow-up is recommended, according to Fleischner criteria. FLEISCHNER SOCIETY GUIDELINES FOR MANAGEMENT OF SMALL PULMONARY NODULES DETECTED ON CT Note: Recommendations do not apply for lung cancer screening, patients with immunosuppression or with known cancer Dimensions are average of long and short axis rounded to the millimeter SOLITARY NODULE: LOW RISK PATIENT <6mm - No follow up 6-8mm - 6-12 months, then consider 18-24 months >8mm - PET/CT, Bx or followup in 3 months SOLITARY NODULE: HIGH RISK PATIENT <6mm - Optional 6-12 months (suspicious morphology or upper lobe) 6-8mm - 6-12 months, then 18-24 months >8mm - PET/CT, Bx or followup in 3 months MULTIPLE NODULES: LOW RISK PATIENT (Use most suspicious nodule to manage guidelines) All <6mm - No follow up Any 6mm or greater - 3-6 months, then consider 18-24 months MULTIPLE NODULES: HIGH RISK PATIENT (Use most suspicious nodule to manage guidelines) All <6mm - No follow up Any 6mm or greater - 3-6 months, then 18-24 months SUBSOLID NODULE: SINGLE Ground glass opacity <6mm - No follow up 6mm or greater - 6-12 months, then every 2 years until 5 years SUBSOLID NODULE: PART SOLID <6mm - No follow up 6mm or greater - 3-6 months, then if solid component <6mm and unchanged every year until 5 years MULTIPLE SUBSOLID NODULES: All <6mm - 3-6 months, then if stable 24 and 48 months 6mm or greater - 3-6 months, subsequent management based upon most suspicious nodule Report Dictated on Authenticated by: Isabelle Galvin On: 07/26/2022 09:11 Read by: ISABELLE GALVIN MD, MD Date: 07/26/2022 09:11 [facility] Comment on above: Order Comment: CONTR AST PER RADIOLOGIST DISCRETION No Panel InformationOrdered By: Dr. Desai on 05-12-2022 Thyroid Stimulating Hormone (TSH) 6.55 uIU/mL 0.358-3.74 [facility] Vitamin D 25-Hydroxy 50.8 ng/mL [facility] Comment on above: Vitamin D 25(OH) Sta tus Range Deficiency <20 ng/mL (50nmol/L) Insufficiency 20 - 30 ng/mL (50 - 75 nmol/L) Sufficiency 30 - 100 ng/mL (75 - 250 nmol/L) Toxicity >100 ng/mL (>250 nmol/L) CT Abdomen / Pelvis w IV onl yon 04-04-2022 CT Abdomen / Pelvis w IV only *ADDENDUM Addendum to impression, 04/04/2022, 1355: IMPRESSION: 5. Stable subcentimeter right middle lobe lung nodules. Report Dictated on Authenticated by: Mike Elias On: 04/04/2022 13:56 Read by: MIKE ELIAS MD, MD Date: 04/04/2022 13:56 *ORIGINAL CLINICAL INFORMATION: Persistent left-sided abdominal and pelvic pain and tenderness since surgery in September 2021. CT ABDOMEN AND PELVIS WITH INTRAVENOUS CONTRAST: Contrast: Isovue 370, [address] ABDOMEN: Volume acquisition CT images are obtained from diaphragm to iliac crests following intravenous contrast only with axial, coronal and sagittal 2-D reconstructions. Oral contrast was withheld by request of the ordering physician. The absence of oral contrast potentially reduces the sensitivity of the examination. Comparison is made to the intravenous contrast enhanced only examination of 11/06/2021. Images through the lower chest redemonstrates stable subcentimeter soft tissue density nodules in the right middle lobe (series 2, images 1 and 3). There is mild irregular posterior pleural thickening in the right lower hemithorax new from prior examination. There are no other significant abnormal pleural or parenchymal densities. The liver is diffusely decreased in density consistent with diffuse fatty metamorphosis. No mass or intrahepatic dilatation is seen. There is no abnormality of the gallbladder. The spleen, pancreas and kidneys are unremarkable in size, configuration and density. There is no hydronephrosis. There is no adrenal gland mass or enlargement. There is no visible abnormality of the unopacified stomach or abdominal small or large bowel. No ascites or retroperitoneal lymphadenopathy is seen. No focal mass, fluid collection or inflammatory changes are identified. CT PELVIS: Volume acquisition CT images were obtained from the iliac crests to the symphysis pubis following intravenous contrast only with axial, coronal and sagittal 2-D reconstructions. Comparison is made to the same prior examination. There is an incompletely distended unopacified urinary bladder without calcified calculus, wall thickening or other visible abnormality on limited evaluation. There is a prominent anteflexed uterus with nonspecific prominence of the endometrial canal most likely secondary to the menstrual cycle phase. There is no abnormality of the adnexa. No focal mass or fluid collection is seen. There is no iliac or inguinal lymphadenopathy. There are scattered distal descending colon diverticula without evidence of diverticulitis. There is no other visible abnormality of the unopacified pelvic small or large bowel. No ascites or inflammatory changes are identified. There is an approximately 2.5 x 1.2 cm (transverse, AP) hypodense collection in the deep left subcutaneous fat of the mid anterior pelvic wall visually inseparable from the rectus sheath significantly decreased in size from a fluid collection observed previously most likely a small residual postoperative seroma. There are diminished but persistent hazy and streaky densities in the subcutaneous fat of the anterior mid pelvic wall with mild thickening of the overlying skin which could be postoperative fibrosis and/or inflammation. IMPRESSION: 1. Small residual hypodense collection in the deep subcutaneous fat in the inseparable from the left mid pelvic rectus sheath most likely small residual postoperative seroma. 2. Diminished but persistent streaky and hazy densities in the anterior pelvic wall subcutaneous fat with mild thickening of the overlying skin which could be postoperative fibrosis and/or inflammation. Correlate with clinical parameters. 3. Minimal distal descending colon diverticulosis without evidence of diverticulitis. 4. No evidence of intra-abdominal or intrapelvic mass, fluid collection, lymphadenopathy or inflammatory process. Report Dictated on Authenticated by: Mike Elias On: 04/04/2022 13:44 Read by: MIKE ELIAS MD, Date: 04/04/2022 13:44 [facility] Comment on above: Order Comment: LLQ i nduration/ post op INR in Blood by Coagulation assayon 03-02-2022 INR Coag (Bld) [Relative time] 1.0 {INR} [facility] Laboratory - Coagulationon 1 05-02-2021 aPTT Coag (Bld) [Time] 27.9 s 24.1-36.2 [facility] PT Coag (PPP) [Time] 12.4 s 11.7-14.9 [facility] Absolute lymphocyte counton 12-24-2021 Lymphocytes Auto (Unsp spec) [#/Vol] 5.82 10*3/uL 0.83-4.51 [facility] Work Phone: Basophil percentageon 2021 Basophil percentage 0 SEEN /hpf 0-5 [facility] Work Phone: Basophils/100 WBC (Bld) 0.3 % 0-1 [facility] Work Phone: Chloride [Moles/Vol] 110 mmol/L 98-107 [facility] Work Phone: Eosinophils/100 WBC (Bld) 0.6 % 0-5 [facility] Work Phone: Glucose [Mass/Vol] 243 mg/dL 74-106 [facility] Work Phone: Comment on above: Glucose result great er than or equal to 200 mg/dLsuggests DIABETES MELLITUS per A.D.A. criteria. Neutrophils (Bld) [#/Vol] 13.2 10*3/uL 2.0-7.7 [facility] Work Phone: Neutrophils/100 WBC (Bld) 66.1 % 47-70 [facility] Work Phone: Potassium [Moles/Vol] 3.0 mmol/L 3.5-5.1 [facility] Work Phone: Sodium [Moles/Vol] 141 mmol/L 136-145 [facility] Work Phone: WBC (Bld) [#/Vol] 19.9 10*3/uL 4.4-11.0 [facility] Work Phone: Bilirubin Test strip Ql (U)o n 12-24-2021 Bilirubin Ql (U) Negative Negative [facility] Work Phone: Blood erythrocytes count (nu mber/volume)on 12-24-2021 RBC (Bld) [#/Vol] 4.90 10*6/uL 4.2-5.4 [facility] Work Phone: Blood hemoglobin measurement (mass/volume)on 12-24-2021 Hemoglobin (Bld) [Mass/Vol] 15.1 g/dL 12.0-15.0 [facility] Work Phone: Blood lymphocytes/100 leukoc yteson 12-24-2021 Lymphocytes/100 WBC (Bld) 29.2 % 19-41 [facility] Work Phone: Blood manual differential co mment interpretation (narrative result)on 12-24-2021 Manual differential comment Ashish (Bld) [Interp] SEE COMMENT [facility] Work Phone: Comment on above: LYMPHOCYTOSIS NOTED Blood monocytes/100 leukocyt eson 12-24-2021 Monocytes/100 WBC (Bld) 2.6 % 0-10 [facility] Work Phone: Blood platelet adequacy dete ction by light microscopyon 12-24-2021 Platelets LM Ql (Bld) ADEQUATE ADEQ [facility] Work Phone: Blood platelet mean volumeon 12-24-2021 Platelet mean volume (Bld) [Entitic vol] 10.5 fL 6.2-12.0 [facility] Work Phone: Determination of erythrocyte mean corpuscular volume (MCV)on 12-24-2021 MCV (RBC) [Entitic vol] 94.3 fL 81-99 [facility] Work Phone: Hematocrit Auto (Bld) [Volum e fraction]on 12-24-2021 Hematocrit (Bld) [Volume fraction] 46.2 % 37-47 [facility] Work Phone: Ketones Test strip Ql (U)on 12-24-2021 Ketones Ql (U) 5 mg/dl Negative [facility] Work Phone: Laboratory - Chemistry and C hemistry - challengeon 12-24-2021 CO2 [Moles/Vol] 22.0 mmol/L 21.0-32.0 [facility] Work Phone: Urea nitrogen/Creatinine [Mass ratio] 16.4 mg/mg 10-20 [facility] Work Phone: Laboratory - Drug toxicology on 12-24-2021 Amphetamines Ql (U) Negative <1000 ng/mL [facility] Work Phone: Benzodiazepines Ql (U) Negative < 200 ng/mL [facility] Work Phone: Cannabinoids Screen Ql (U) Negative < 50 ng/mL [facility] Work Phone: Cocaine Ql (U) Negative < 300 ng/mL [facility] Work Phone: Opiates Ql (U) Negative < 300 ng/mL [facility] Work Phone: Laboratory - Hematology and Cell countson 12-24-2021 Anisocytosis Ql (Bld) RARE [facility] Work Phone: Erythrocyte distribution width (RBC) [Entitic vol] 43.8 fL 35.1-43.9 [facility] Work Phone: Erythrocyte distribution width (RBC) [Ratio] 12.7 % 11.6-14.6 [facility] Work Phone: Immature granulocytes/100 WBC (Bld) 1.200 % 0.0-0.9 [facility] Work Phone: Comment on above: IG% - Immature Granu locytes (promyelocytes, myelocytes and metamyelocytes) > 1% indicates that a LEFT SHIFT is Present. MCH (RBC) [Entitic mass] 30.8 pg 27.0-32.0 [facility] Work Phone: Nucleated RBC/100 WBC (Bld) [Ratio] 0 % 0-5 [facility] Work Phone: MCHC Auto (RBC) [Mass/Vol]on 12-24-2021 MCHC (RBC) [Mass/Vol] 32.7 g/dL 32-36 [facility] Work Phone: Macrocytes detectionon 12-24 Macrocytes Ql (Bld) RARE [facility] Work Phone: Mucus LM Ql (Urine sed)on Mucus Ql (Urine sed) 0 SEEN /hpf [facility] Work Phone: Nitrite Test strip Ql (U)on 12-24-2021 Nitrite Ql (U) Negative Negative [facility] Work Phone: No Panel Informationon 12-24 MDMA (Ecstasy) Screen Negative < 500 ng/mL [facility] Work Phone: Urine Barbiturates Screen Negative < 200 ng/mL [facility] Work Phone: Urine Drug Screen Comment [facility] Work Phone: Comment on above: CONFIRMATORY TESTING FOR ALL POSITIVE URINE DRUG SCREENRESULTS WILL ONLY BE SENT OUT UPON PHYSICIAN ORDER. VISTA Urine Drug Screen methods provide only preliminaryanalytical test results. A more specific alternate chemicalmethod must be used in order to obtain a confirmedanalytical result. Gas chromatography/mass spectrometery(GC/MS) is the preferred confirmatory method. Clinicalconsideration and professional judgement should be appliedto any drug of abuse test result, particularly whenpreliminary positive results are used. URINE TCA TESTING MUST BE ORDERED SEPARATELY. USE TESTMNEMONIC: UTCA Urine Methadone Screen Negative < 300 ng/mL [facility] Work Phone: Estimated Creatinine Clearance Calc 70.78 ml/min [facility] Work Phone: Estimated GFR (MDRD) Amer 84 mL/min >60 [facility] Work Phone: Comment on above: GFR Calc Estimated GFR (MDRD) Non-Af Amer 70 mL/min >60 [facility] Work Phone: Comment on above: Non- GFR Calc Platelets bldon 12-24-2021 Platelets (Bld) [#/Vol] 302 10*3/uL 150-450 [facility] Work Phone: Protein Test strip Ql (U)on 12-24-2021 Protein Ql (U) 15 mg/dl Negative [facility] Work Phone: RBC morphologyon 12-24-2021 RBC morphology finding Nom (Bld) N CHROM NORMAL NORM C&C [facility] Work Phone: Serum or plasma calcium jud urement (mass/volume)on 12-24-2021 Calcium [Mass/Vol] 9.1 mg/dL 8.5-10.1 [facility] Work Phone: Serum or plasma creatinine m easurement (mass/volume)on 12-24-2021 Creatinine [Mass/Vol] 0.91 mg/dL 0.55-1.02 [facility] Work Phone: Comment on above: The validity of the calculated GFR & GFRAA in patients over 70 years has not been determined. Clinical correlation is essential. Serum or plasma urea nitroge n measurement (mass/volume)on 12-24-2021 Urea nitrogen [Mass/Vol] 15 mg/dL 7-18 [facility] Work Phone: Squamous epithelial cells de tection in urine sediment by light microscopyon 12-24-2021 Epithelial cells.squamous LM Ql (Urine sed) 0 SEEN /hpf 5-10 [facility] Work Phone: Thin prep Papanicolaou smear with manual screeningon 12-24-2021 Thin prep Papanicolaou smear with manual screening 9 5-15 [facility] Work Phone: [phone] Urine blood detectionon 12-15 RBC Ql (U) Negative Negative [facility] Work Phone: RBC Ql (U) 0 SEEN /hpf 0-5 [facility] Work Phone: Urine clarityon 12-24-2021 Clarity (U) Clear Clear [facility] Work Phone: Urine color determinationon 12-24-2021 Color (U) Straw Yellow [facility] Work Phone: Urine glucose detectionon Glucose Ql (U) 100 mg/dl Normal [facility] Work Phone: Urine leukocyte esterase det ection by dipstickon 12-24-2021 Leukocyte esterase Test strip Ql (U) Negative Negative [facility] Work Phone: Urine pHon 12-24-2021 pH (U) 6.0 [pH] 5.0 - 8.0 [facility] Work Phone: Urine phencyclidine (PCP) de tectionon 12-24-2021 Phencyclidine Ql (U) Negative < 25 ng/mL [facility] Work Phone: Urine sediment bacteria coun t by microscopy (number/high power field)on 12-24-2021 Bacteria LM.HPF (Urine sed) [#/Area] 0 /[HPF] None Seen [facility] Work Phone: Urine specific gravity measu rementon 12-24-2021 Specific gravity (U) [Rel density] 1.020 1.002-1.03 0 [facility] Work Phone: Urobilinogen Auto test strip Ql (U)on 12-24-2021 Urobilinogen Ql (U) Normal mg/dl Normal [facility] Work Phone: Absolute lymphocyte counton 12-02-2021 Lymphocytes Auto (Unsp spec) [#/Vol] 2.35 10*3/uL 0.83-4.51 [facility] Work Phone: Basophil percentageon 2021 Basophil percentage 0 SEEN /hpf 0-5 [facility] Work Phone: Basophils/100 WBC (Bld) 0.3 % 0-1 [facility] Work Phone: Bilirubin [Mass/Vol] 0.30 mg/dL 0.20-1.00 [facility] Work Phone: Comment on above: For patients on eltr ombopag therapy, use of Dimension Clark TBIL is not recommended. Chloride [Moles/Vol] 106 mmol/L 98-107 [facility] Work Phone: Eosinophils/100 WBC (Bld) 0.9 % 0-5 [facility] Work Phone: Glucose [Mass/Vol] 116 mg/dL 74-106 [facility] Work Phone: Comment on above: Fasting Glucose resu lt from 100 to 125 mg/dL suggests IMPAIRED HOMEOSTASIS per A.D.A. criteria. Neutrophils (Bld) [#/Vol] 9.2 10*3/uL 2.0-7.7 [facility] Work Phone: Neutrophils/100 WBC (Bld) 74.9 % 47-70 [facility] Work Phone: Potassium [Moles/Vol] 3.7 mmol/L 3.5-5.1 [facility] Work Phone: [phone] Protein [Mass/Vol] 7.7 g/dL 6.4-8.2 [facility] Work Phone: Sodium [Moles/Vol] 138 mmol/L 136-145 [facility] Work Phone: WBC (Bld) [#/Vol] 12.3 10*3/uL 4.4-11.0 [facility] Work Phone: Bilirubin Test strip Ql (U)o n 12-02-2021 Bilirubin Ql (U) Negative Negative [facility] Work Phone: Blood erythrocytes count (nu mber/volume)on 12-02-2021 RBC (Bld) [#/Vol] 4.86 10*6/uL 4.2-5.4 [facility] Work Phone: Blood hemoglobin measurement (mass/volume)on 12-02-2021 Hemoglobin (Bld) [Mass/Vol] 15.0 g/dL 12.0-15.0 [facility] Work Phone: Blood lymphocytes/100 leukoc yteson 12-02-2021 Lymphocytes/100 WBC (Bld) 19.1 % 19-41 [facility] Work Phone: Blood monocytes/100 leukocyt eson 12-02-2021 Monocytes/100 WBC (Bld) 4.4 % 0-10 [facility] Work Phone: Blood platelet mean volumeon 12-02-2021 Platelet mean volume (Bld) [Entitic vol] 10.2 fL 6.2-12.0 [facility] Work Phone: Determination of erythrocyte mean corpuscular volume (MCV)on 12-02-2021 MCV (RBC) [Entitic vol] 90.3 fL 81-99 [facility] Work Phone: Hematocrit Auto (Bld) [Volum e fraction]on 12-02-2021 Hematocrit (Bld) [Volume fraction] 43.9 % 37-47 [facility] Work Phone: Ketones Test strip Ql (U)on 12-02-2021 Ketones Ql (U) Negative Negative [facility] Work Phone: Laboratory - Chemistry and C hemistry - challengeon 12-02-2021 ALP [Catalytic activity/Vol] 78 U/L 45-117 [facility] Work Phone: [phone] ALT [Catalytic activity/Vol] 52 U/L 13-56 [facility] Work Phone: CO2 [Moles/Vol] 25.0 mmol/L 21.0-32.0 [facility] Work Phone: Globulin (S) [Mass/Vol] 4.0 g/dL 2.2-4.2 [facility] Work Phone: Lipase [Catalytic activity/Vol] 260 U/L 73-393 [facility] Work Phone: Urea nitrogen/Creatinine [Mass ratio] 15.1 mg/mg 10-20 [facility] Work Phone: Laboratory - Hematology and Cell countson 12-02-2021 Erythrocyte distribution width (RBC) [Entitic vol] 42.5 fL 35.1-43.9 [facility] Work Phone: [phone] Erythrocyte distribution width (RBC) [Ratio] 13.0 % 11.6-14.6 [facility] Work Phone: Immature granulocytes/100 WBC (Bld) 0.400 % 0.0-0.9 [facility] Work Phone: [phone] Comment on above: IG% - Immature Granu locytes (promyelocytes, myelocytes and metamyelocytes) > 1% indicates that a LEFT SHIFT is Present. MCH (RBC) [Entitic mass] 30.9 pg 27.0-32.0 [facility] Work Phone: Nucleated RBC/100 WBC (Bld) [Ratio] 0 % 0-5 [facility] Work Phone: MCHC Auto (RBC) [Mass/Vol]on 12-02-2021 MCHC (RBC) [Mass/Vol] 34.2 g/dL 32-36 [facility] Work Phone: Mucus LM Ql (Urine sed)on Mucus Ql (Urine sed) 0 SEEN /hpf [facility] Work Phone: Nitrite Test strip Ql (U)on 12-02-2021 Nitrite Ql (U) Negative Negative [facility] Work Phone: No Panel Informationon 12-02 Estimated Creatinine Clearance Calc 88.23 ml/min [facility] Work Phone: Estimated GFR (MDRD) Amer 110 mL/min >60 [facility] Work Phone: Comment on above: GFR Calc Estimated GFR (MDRD) Non-Af Amer 91 mL/min >60 [facility] Work Phone: Comment on above: Non- GFR Calc Platelets bldon 12-02-2021 Platelets (Bld) [#/Vol] 294 10*3/uL 150-450 [facility] Work Phone: Protein Test strip Ql (U)on 12-02-2021 Protein Ql (U) Negative Negative [facility] Work Phone: Serum or plasma albumin jud urement (mass/volume)on 12-02-2021 Albumin [Mass/Vol] 3.7 g/dL 3.2-5.0 [facility] Work Phone: Serum or plasma albumin/glob ulin mass ratioon 12-02-2021 Albumin/Globulin [Mass ratio] 0.9 {ratio} 0.9-2.4 [facility] Work Phone: Serum or plasma calcium jud urement (mass/volume)on 12-02-2021 Calcium [Mass/Vol] 9.4 mg/dL 8.5-10.1 [facility] Work Phone: Serum or plasma creatinine m easurement (mass/volume)on 12-02-2021 Creatinine [Mass/Vol] 0.73 mg/dL 0.55-1.02 [facility] Work Phone: Comment on above: The validity of the calculated GFR & GFRAA in patients over 70 years has not been determined. Clinical correlation is essential. Serum or plasma urea nitroge n measurement (mass/volume)on 12-02-2021 Urea nitrogen [Mass/Vol] 11 mg/dL 7-18 [facility] Work Phone: Squamous epithelial cells de tection in urine sediment by light microscopyon 12-02-2021 Epithelial cells.squamous LM Ql (Urine sed) 0-5 SEEN /hpf 5-10 [facility] Work Phone: Thin prep Papanicolaou smear with manual screeningon 12-02-2021 Thin prep Papanicolaou smear with manual screening 31 U/L 15-37 [facility] Work Phone: Thin prep Papanicolaou smear with manual screening 7 5-15 [facility] Work Phone: Urine blood detectionon 11-14 RBC Ql (U) 10 /ul Negative [facility] Work Phone: RBC Ql (U) 0-5 SEEN /hpf 0-5 [facility] Work Phone: Urine clarityon 12-02-2021 Clarity (U) Sl. Cloudy Clear [facility] Work Phone: Urine color determinationon 12-02-2021 Color (U) Yellow Yellow [facility] Work Phone: Urine glucose detectionon Glucose Ql (U) Normal mg/dl Normal [facility] Work Phone: Urine leukocyte esterase det ection by dipstickon 12-02-2021 Leukocyte esterase Test strip Ql (U) Negative Negative [facility] Work Phone: Urine pHon 12-02-2021 pH (U) 6.5 [pH] 5.0 - 8.0 [facility] Work Phone: Urine sediment bacteria coun t by microscopy (number/high power field)on 12-02-2021 Bacteria LM.HPF (Urine sed) [#/Area] 0 /[HPF] None Seen [facility] Work Phone: Urine specific gravity measu rementon 12-02-2021 Specific gravity (U) [Rel density] 1.010 1.002-1.03 0 [facility] Work Phone: Urobilinogen Auto test strip Ql (U)on 12-02-2021 Urobilinogen Ql (U) Normal mg/dl Normal [facility] Work Phone: US Aspiration Absc/Hemat/Bul /Cyston 11-07-2021 US Aspiration Absc/Hemat/Bul/Cyst ULTRASOUND GUIDED ASPIRATION: CLINICAL INDICATION: Abdominoplasty surgery with a collection in the left abdominal wall noted on outside CT examination. TECHNIQUE: Ultrasonographic evaluation of the abdominal wall was performed. A complex collection with internal echoes inspiration is present within the lower anterior abdomen with dimensions of 9.3 x 3.6 x 6.4 cm. Following discussion with the patient regarding risks, benefits and alternatives along with timeout to document the patient's name, site and nature of the procedure, the skin was sterilely prepared and local anesthesia was applied. Under real-time ultrasound guidance, a 5 Martiniqu[place] Yueh centesis catheter was advanced into the collection in the left lower anterior abdominal wall. Aspiration was performed with the yield of 40mL of bloody fluid. The collection was almost completely aspirated and partially collapsed. The patient tolerated procedure well. Report Dictated on Authenticated by: Vasiliy Carr On: 11/07/2021 10:34 Read by: VASILIY CARR MD, Date: 11/07/2021 10:34 [facility] US Guid Ndl Plcmt W/Imageon 11-07-2021 US Guid Ndl Plcmt W/Image ULTRASOUND GUIDED ASPIRATION: CLINICAL INDICATION: Abdominoplasty surgery with a collection in the left abdominal wall noted on outside CT examination. TECHNIQUE: Ultrasonographic evaluation of the abdominal wall was performed. A complex collection with internal echoes inspiration is present within the lower anterior abdomen with dimensions of 9.3 x 3.6 x 6.4 cm. Following discussion with the patient regarding risks, benefits and alternatives along with timeout to document the patient's name, site and nature of the procedure, the skin was sterilely prepared and local anesthesia was applied. Under real-time ultrasound guidance, a 5 Martiniqu[place] Yueh centesis catheter was advanced into the collection in the left lower anterior abdominal wall. Aspiration was performed with the yield of 40mL of bloody fluid. The collection was almost completely aspirated and partially collapsed. The patient tolerated procedure well. Report Dictated on Authenticated by: Vasiliy Carr On: 11/07/2021 10:34 Read by: VASILIY CARR MD, Date: 11/07/2021 10:34 [facility] Absolute lymphocyte counton 11-06-2021 Lymphocytes Auto (Unsp spec) [#/Vol] 3.82 10*3/uL 0.83-4.51 [facility] Work Phone: [phone] Basophil percentageon 2021 Basophils/100 WBC (Bld) 0.3 % 0-1 [facility] Work Phone: Chloride [Moles/Vol] 107 mmol/L 98-107 [facility] Work Phone: Eosinophils/100 WBC (Bld) 1.7 % 0-5 [facility] Work Phone: Glucose [Mass/Vol] 104 mg/dL 74-106 [facility] Work Phone: Comment on above: Fasting Glucose resu lt from 100 to 125 mg/dL suggests IMPAIRED HOMEOSTASIS per A.D.A. criteria. Neutrophils (Bld) [#/Vol] 9.3 10*3/uL 2.0-7.7 [facility] Work Phone: Neutrophils/100 WBC (Bld) 65.5 % 47-70 [facility] Work Phone: Potassium [Moles/Vol] 3.9 mmol/L 3.5-5.1 [facility] Work Phone: Sodium [Moles/Vol] 141 mmol/L 136-145 [facility] Work Phone: WBC (Bld) [#/Vol] 14.2 10*3/uL 4.4-11.0 [facility] Work Phone: Blood erythrocytes count (nu mber/volume)on 11-06-2021 RBC (Bld) [#/Vol] 4.46 10*6/uL 4.2-5.4 [facility] Work Phone: Blood hemoglobin measurement (mass/volume)on 11-06-2021 Hemoglobin (Bld) [Mass/Vol] 13.9 g/dL 12.0-15.0 [facility] Work Phone: Blood lymphocytes/100 leukoc yteson 11-06-2021 Lymphocytes/100 WBC (Bld) 26.9 % 19-41 [facility] Work Phone: Blood monocytes/100 leukocyt eson 11-06-2021 Monocytes/100 WBC (Bld) 5.1 % 0-10 [facility] Work Phone: Blood platelet mean volumeon 11-06-2021 Platelet mean volume (Bld) [Entitic vol] 10.8 fL 6.2-12.0 [facility] Work Phone: Determination of erythrocyte mean corpuscular volume (MCV)on 11-06-2021 MCV (RBC) [Entitic vol] 93.7 fL 81-99 [facility] Work Phone: Hematocrit Auto (Bld) [Volum e fraction]on 11-06-2021 Hematocrit (Bld) [Volume fraction] 41.8 % 37-47 [facility] Work Phone: Laboratory - Chemistry and C hemistry - challengeon 11-06-2021 CO2 [Moles/Vol] 27.0 mmol/L 21.0-32.0 [facility] Work Phone: Urea nitrogen/Creatinine [Mass ratio] 21.0 mg/mg 10-20 [facility] Work Phone: Laboratory - Hematology and Cell countson 11-06-2021 Erythrocyte distribution width (RBC) [Entitic vol] 45.4 fL 35.1-43.9 [facility] Work Phone: Erythrocyte distribution width (RBC) [Ratio] 13.3 % 11.6-14.6 [facility] Work Phone: Immature granulocytes/100 WBC (Bld) 0.500 % 0.0-0.9 [facility] Work Phone: Comment on above: IG% - Immature Granu locytes (promyelocytes, myelocytes and metamyelocytes) > 1% indicates that a LEFT SHIFT is Present. MCH (RBC) [Entitic mass] 31.2 pg 27.0-32.0 [facility] Work Phone: Nucleated RBC/100 WBC (Bld) [Ratio] 0 % 0-5 [facility] Work Phone: MCHC Auto (RBC) [Mass/Vol]on 11-06-2021 MCHC (RBC) [Mass/Vol] 33.3 g/dL 32-36 [facility] Work Phone: No Panel Informationon 11-06 Estimated Creatinine Clearance Calc 84.75 ml/min [facility] Work Phone: Estimated GFR (MDRD) Amer 104 mL/min >60 [facility] Work Phone: Comment on above: GFR Calc Estimated GFR (MDRD) Non-Af Amer 86 mL/min >60 [facility] Work Phone: Comment on above: Non- GFR Calc Platelets bldon 11-06-2021 Platelets (Bld) [#/Vol] 307 10*3/uL 150-450 [facility] Work Phone: Serum or plasma calcium jud urement (mass/volume)on 11-06-2021 Calcium [Mass/Vol] 8.9 mg/dL 8.5-10.1 [facility] Work Phone: Serum or plasma creatinine m easurement (mass/volume)on 11-06-2021 Creatinine [Mass/Vol] 0.76 mg/dL 0.55-1.02 [facility] Work Phone: Comment on above: The validity of the calculated GFR & GFRAA in patients over 70 years has not been determined. Clinical correlation is essential. Serum or plasma urea nitroge n measurement (mass/volume)on 11-06-2021 Urea nitrogen [Mass/Vol] 16 mg/dL 7-18 [facility] Work Phone: Thin prep Papanicolaou smear with manual screeningon 11-06-2021 Thin prep Papanicolaou smear with manual screening 7 5-15 [facility] Work Phone: Operative Reporton Operative Report [facility] [address]AL [address] [place], [place] [address] RECORD OF PROCEDURE PATIENT NAME: AMA AVELAR DATE OF : 1975 MED REC #: [id number] PT LOCATION: OR PACU PT TYPE: OPS AGE: 46 SEX: F ADMISSION DATE: 09/14/2021 DATE OF SERVICE: 09/14/2021 SURGEON: Dr. Raymundo Cheek 1ST CAR PINCHER: Dr. Negar Burks 2ND CAR PINCHER: Dr. Escalante 3RD CAR PINCHER: Dr. Devan Bowles SPECIMEN REMOVED: Right breast tissue weighing 290 g; left weighing 580 g. ESTIMATED BLOOD LOSS: 100 mL. COMPLICATIONS: None. INDICATIONS FOR PROCEDURE: This is a 46-year-old female who presented to the office after massive weight loss. The patient was left with a residual pannus as well as breast hypertrophy. She was recommended breast reduction and panniculectomy. Patient also elected to have liposuction of the flanks to improve on the contour. Risks of the procedure were discussed including, but not limited to, postoperative bleeding, infection, wound dehiscence, poor scarring, skin or fat necrosis, seroma, and the rare complication of venous thromboembolism as well as fat embolus. The patient understood the risks and wished to proceed. PREPROCEDURE DIAGNOSES: Breast hypertrophy and symptomatic pannus. POSTPROCEDURE DIAGNOSES: Breast hypertrophy and symptomatic pannus. NAME OF PROCEDURE: 1. Bilateral breast reduction. 2. Panniculectomy. 3. Liposuction of the flanks. FINDINGS: The left breast was significantly larger than the right. A total of 580 g was removed from the left. A total of 292 g was removed from the right. This did not reach the preoperative estimates secondary to concerns over blood supply and wound healing complications. Panniculectomy was performed without difficulty. Diastasis was noted in the midline and reapproximated. The flanks were defatted using liposuction. All incisions were closed in multiple layers. At completion, the incisions were clean, dry and intact. DESCRIPTION OF PROCEDURE: The patient was brought to the operating room suite and transferred to the operating room table in a supine position. A timeout was performed identifying the correct patient and operative plan. The patient underwent general anesthesia via endotracheal intubation. SCDs were placed on bilateral lower extremities. The patient was given intravenous Ancef. The patient had been marked in the preoperative holding suite while in a standing position for bilateral breast reduction with Augustin pattern and inferior pedicle. The lower incision line for panniculectomy was also marked. The areas of lipodystrophy were also marked to perform liposuction on the flanks. Her chest and abdomen were then prepped and draped in the normal sterile fashion. Surgery was initiated on the breast tissue. Her Augustin pattern was completed by placing a 42 mm nipple marker on her current nipple areolar complexes. All incisions were injected with 1% lidocaine with epinephrine. Skin was incised at all sites using No. 10 scalpel blade. The inferior pedicle was then deepithelialized with SuperCut scissors. An identical procedure was performed on both breasts except for the left breast had larger resection performed. Bovie electrocautery was used to incise dermis and into the subcutaneous tissue and breast parenchyma down to the chest wall at the lateral column of the breast. A pyramidal type excision was performed on the lateral column. A similar dissection was performed on the medial column using Bovie electrocautery through the subcutaneous tissue, breast parenchyma and down to the anterolateral chest wall. Attention was then turned to thinning of the superior flaps. Dissection was initiated with Bovie electrocautery through the dermis and subcutaneous tissue into the breast parenchyma. The flaps were thinned to an appropriate dimension. This dissection was carried up to the clavipectoral fascia. Excess tissue was taken off of the inferior pedicle. Hemostasis was obtained with Bovie electrocautery. The wound was irrigated with saline. The inferior pedicle was then tacked into slightly medial location. A 3-point suture was placed with 3-0 Monocryl through the central aspect of the inframammary fold up to the corners of the superior flaps. Skin diana were then placed. The patient was sat up in the operating room to confirm symmetry. Symmetry was confirmed. Closure proceeded with 3-0 Monocryl in the deep dermal plane in interrupted fashion followed by 3-0 Monocryl in running subcuticular fashion. A 42 mm nipple marker was then placed on the vertical limb and centered at its apex. Skin was incised with a No. 10 scalpel blade. Skin and subcutaneous tissue was resected. The nipple areolar complex was then brought through this opening. The nipple areolar complex was then inset wit 4-0 Monocryl in the deep dermal plane in interrupted fashion followed by 4-0 Monocryl in a running sub (more content not included)... [facility] Surgical Pathology Depar tmenton 09-14-2021 [facility] Surgical Pathology Department Name AMA AVELAR Pathologist: EMBER PINEDA MD Date of Procedure: 09/14/2021 Date Received: 09/14/2021 Date Reported 09/26/2021 Submitting Physician: RAYMUNDO CHEEK M.D. Location: [facility] Copy To/Referring/Attending: BARI DESAI DO Other External # [id number] FINAL DIAGNOSIS A. RIGHT BREAST, REDUCTION MAMMOPLASTY (302 GRAMS): -- BENIGN BREAST TISSUE AND SKIN. B. LEFT BREAST, REDUCTION MAMMOPLASTY (630 GRAMS): -- BENIGN PREDOMINANTLY FATTY BREAST TISSUE AND SKIN. Electronically Signed Out By EMBER PINEDA MD/DOE By the signature on this report, the individual or group listed as making the Final Interpretation/Diagnosis certifies that they have reviewed this case. Diagnostic interpretation performed at [facility] [id number] [facility] [address] Clinical History: Bilateral breast hypertrophy Specimens Submitted As: A: RIGHT BREAST B: LEFT BREAST Other Case Numbers [id number] Gross Description: A: Received in formalin, labeled with the patient's name and hospital number and 1) right breast, are multiple segments of skin with underlying fatty soft tissue aggregating to 16 x 13.5 x 4.3 cm and weighing 302 grams. The skin surfaces are unremarkable. The sectioned breast tissue is predominately fatty with irregular rubbery white streaks. No mass is identified. Informatics Coordinator sections are submitted in 2 cassettes. SJD NOTE: Ischemia time: Not provided. This specimen was placed into formalin at: Not provided. B: Received in formalin, labeled with the patient's name and hospital number and 2) left breast, are multiple segments of skin with underlying fatty soft tissue aggregating to 25.5 x 13.0 x 6.5 cm and weighing 630 grams. The skin surfaces are unremarkable. The sectioned breast tissue is predominately fatty with irregular rubbery white streaks. No mass is identified. Informatics Coordinator sections are submitted in 2 cassettes. SJD NOTE: Ischemia time: Not provided. This specimen was placed into formalin at: Not provided. sjd/09/15/2021 [facility] 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 Pathology [id number] [place] [id number] Normal [facility] Comment on above: Performed By: #### U [facility] #### [facility] Surgical Pathology Department [address] [place] [phone] Basic Metabolic Panelon 08-15 Anion gap [Moles/Vol] 11 mmol/L Normal 8-15 [facility] Comment on above: Performed By: #### B MP #### [facility] [address] [place] [address] Calcium [Mass/Vol] 9.6 mg/dL Normal 8.6-10.6 [facility] Comment on above: Performed By: #### B MP #### [facility] [address] [place] [address] Chloride [Moles/Vol] 105 mmol/L Normal 98-107 [facility] Comment on above: Performed By: #### B MP #### [facility] [address] [place] [address] 556[address] CO2 [Moles/Vol] 24 mmol/L Normal 22-29 [facility] Comment on above: Performed By: #### B MP #### [facility] [address] [place] [address] Creatinine [Mass/Vol] 0.8 mg/dL Normal 0.5-1.2 [facility] Comment on above: Performed By: #### B MP #### [facility] [address] [place] [address]02 eGFR -Amer >=60 Normal >=60 [facility] Comment on above: Performed By: #### B MP #### [facility] [address] [place] [address] GFR/1.73 sq M.predicted among non-blacks MDRD (S/P/Bld) [Vol rate/Area] mL/min/{1.73_m2} Normal >=60 [facility] Comment on above: Performed By: #### B MP #### [facility] [address] [place] [address] Glucose [Mass/Vol] 96 mg/dL Normal 74-109 [facility] Comment on above: Performed By: #### B MP #### [facility] [address] [place] [address]3576 Potassium [Moles/Vol] 4.1 mmol/L Normal 3.4-5.1 [facility] Comment on above: Performed By: #### B MP #### [facility] [address] [place] [address] 89703 Sodium [Moles/Vol] 140 mmol/L Normal 136-145 [facility] Comment on above: Performed By: #### B MP #### [facility] [address] [place] [address]2887 Urea nitrogen [Mass/Vol] 11 mg/dL Normal 6-23 [facility] Comment on above: Performed By: #### B MP #### [facility] [address] [place] [address] CBC with Diffon 09-05-2021 BA# 0.1 x(10)3/cumm Normal 0.0-0.1 [facility] Comment on above: Performed By: #### C BCDIFF #### [facility] [address] [place] [address] Basophils/100 WBC (Bld) 0.9 % Normal 0.0-1.0 [facility] Comment on above: Performed By: #### C BCDIFF #### [facility] [address] [place] [address] 86987 EO# 0.2 x(10)3/cumm Normal 0.0-0.4 [facility] Comment on above: Performed By: #### C BCDIFF #### [facility] [address] [place] [address] Eosinophils/100 WBC (Bld) 2.1 % Normal 0.0-6.1 [facility] Comment on above: Performed By: #### C BCDIFF #### [facility] [address] [place] [address] Erythrocyte distribution width (RBC) [Ratio] 13.0 % Normal 11.1-15.3 [facility] Comment on above: Performed By: #### C BCDIFF #### [facility] [address] [place] [address] Hematocrit (Bld) [Volume fraction] 45.4 % High 34.6-45.0 [facility] Comment on above: Performed By: #### C BCDIFF #### [facility] [address] [place] [address] 51853 Hemoglobin (Bld) [Mass/Vol] 15.4 g/dL Normal 11.5-15.5 [facility] Comment on above: Performed By: #### C BCDIFF #### [facility] [address] [place] [address] 12296 LY# 3.5 x(10)3/cumm High 0.8-2.9 [facility] Comment on above: Performed By: #### C BCDIFF #### [facility] [address] [place] [address] 53631 Lymphocytes/100 WBC (Bld) 29.5 % Normal 12.2-42.6 [facility] Comment on above: Performed By: #### C BCDIFF #### [facility] [address] [place] [address] 45675 MCH (RBC) [Entitic mass] 30.8 pg Normal 27.2-33.6 [facility] Comment on above: Performed By: #### C BCDIFF #### [facility] [address] [place] [address] 12286 MCHC (RBC) [Mass/Vol] 34.0 g/dL Normal 32.9-35.3 [facility] Comment on above: Performed By: #### C BCDIFF #### [facility] [address] [place] [address] 75847 MCV (RBC) [Entitic vol] 90.7 fL Normal 81.3-96.7 [facility] Comment on above: Performed By: #### C BCDIFF #### [facility] [address] [place] [address] MO# 0.6 x(10)3/cumm Normal 0.2-0.8 [facility] Comment on above: Performed By: #### C BCDIFF #### [facility] [address] [place] [address] 77721 Monocytes/100 WBC (Bld) 5.3 % Normal 3.3-11.6 [facility] Comment on above: Performed By: #### C BCDIFF #### [facility] [address] [place] [address] 28111 NE# 7.3 x(10)3/cumm Normal 1.3-7.4 [facility] Comment on above: Performed By: #### C BCDIFF #### [facility] [address] [place] [address] 95626 Neutrophils/100 WBC (Bld) 62.2 % Normal 44.9-78.8 [facility] Comment on above: Performed By: #### C BCDIFF #### [facility] [address] [place] [address] 44368 Platelet mean volume (Bld) [Entitic vol] 9.0 fL Normal 6.4-10.0 [facility] Comment on above: Performed By: #### C BCDIFF #### [facility] [address] [place] [address] 25286 PLT 290 x(10)3/cumm Normal 138-367 [facility] Comment on above: Performed By: #### C BCDIFF #### [facility] [address] [place] [address] Plt Morph Normal [facility] Comment on above: Performed By: #### C BCDIFF #### [facility] [address] [address] RBC 5.00 X(10)6/cumm Normal 3.90-5.10 [facility] Comment on above: Performed By: #### C BCDIFF #### [facility] [address] [place], [place] [id number] RBC Morph cont [facility] Comment on above: Performed By: #### C BCDIFF #### [facility] [address] [place] [address] RBC morphology finding Nom (Bld) [facility] Comment on above: Performed By: #### C BCDIFF #### [facility] [address] [place] [address] WBC 11.7 x(10)3/cumm High 3.6-10.3 [facility] Comment on above: Performed By: #### C BCDIFF #### [facility] [address] [place], [place] [phone] WBC Morph [facility] Comment on above: Performed By: #### C BCDIFF #### [facility] [address] [place] [address] CNOVon 02-02-2021 CNOV Office Visit (MAG 3) AMA AVELAR ([id number]) 1975 F Date Time Provider Department 02/02/21 9:00 AM LAZ [email or web address] During your visit today, we recorded the following information about you: Pulse Respiration Blood pressure Weight 66/minute 18/minute 113/70 95.7 kg Height 1.702 m Laz Walker MD 02/02/2021 10:01 AM Signed Thank you for coming to see me today. It is my pleasure to take care of you. If you have any questions regarding your visit, please don't hesitate to contact us. Laz Walker MD 02/02/2021 12:26 PM Signed Ama Avelar is a 45 year old [...] recti Class 1 obesity due to excess (more content not included)... Normal [facility] Vital Signs Date Time Vital Sign Value Performing Clinician Facility 01-21-2025 13:54-0400 Body temperature 98 [degF] Dr. Bari Desai DO Work Phone: [facility] 01-21-2025 13:54-0400 Diastolic blood pressure 80 mm[Hg] Dr. Bari Desai DO Work Phone: [facility] 01-21-2025 13:54-0400 Heart rate 90 /min Dr. Bari Desai DO Work Phone: [facility] 01-21-2025 13:54-0400 Respiratory rate 18 /min Dr. Bari Desai DO Work Phone: [facility] 01-21-2025 13:54-0400 SaO2% (BldA) [Mass fraction] 97 % Dr. Bari Desai DO Work Phone: [facility] 01-21-2025 13:54-0400 Systolic blood pressure 120 mm[Hg] Dr. Bari Desai DO Work Phone: [facility] 07-07-2024 09:07-0400 Body height 167.[address] Bari Desai DO Work Phone: [facility] 07-07-2024 08:01-0400 Body height 167.[address] Work Phone: [facility] 07-07-2024 08:01-0400 Body mass index (BMI) [Ratio] 33.41 kg/m2 Tran Saunders RD Work Phone: [facility] 07-07-2024 08:01-0400 Body weight 93.[address] Work Phone: [facility] Comment on above: patient stated 06-03-2024 14:35-0500 Body height 167.6 cm Jessica Rodrigues MD Work Phone: [facility] 06-03-2024 14:35-0500 Body mass index (BMI) [Ratio] 33.57 kg/m2 Jessica Rodrigues MD Work Phone: [facility] 06-03-2024 14:35-0500 Body weight 94.35 kg Jessica Rodrigues MD Work Phone: [facility] 06-03-2024 11:52-0500 Body height 167.[address] Work Phone: [facility] 06-03-2024 11:52-0500 Body mass index (BMI) [Ratio] 33.57 kg/m2 Tran Hamiltonson RD Work Phone: [facility] 06-03-2024 11:52-0500 Body weight 94.[address] Work Phone: [facility] Comment on above: patinet stated 05-28-2024 06:47-0500 Body mass index (BMI) [Ratio] 33.48 kg/m2 Mihaela Dow MEDICAL ADMINISTRATIVE TECHNICIAN.[employer]WN CAR[employer] Work Phone: [facility] 05-28-2024 06:47-0500 Body weight 94.8 kg Mihaela Dow MEDICAL ADMINISTRATIVE TECHNICIAN.LAWN CARETAKER Work Phone: [facility] 05-26-2024 10:12-0500 Body height 168.3 cm Laine Darby MD Work Phone: [facility] 05-26-2024 10:12-0500 Body mass index (BMI) [Ratio] 33.48 kg/m2 Laine Darby MD Work Phone: [facility] 05-26-2024 10:12-0500 Body weight 94.8 kg Laine Darby MD Work Phone: [facility] 05-26-2024 10:12-0500 Diastolic blood pressure 74 mm[Hg] Laine Darby MD Work Phone: [facility] 05-26-2024 10:12-0500 Heart rate 76 /min Laine Darby MD Work Phone: [facility] 05-26-2024 10:12-0500 Systolic blood pressure 130 mm[Hg] Laine Darby MD Work Phone: [facility] 01-16-2024 04:40-0400 Body height 167.[address] ROBERTO DIAS MD [facility] 01-16-2024 04:40-0400 Body temperature 96.98 [degF] DR ROBERTO DIAS MD [facility] 01-16-2024 04:40-0400 Body weight 90.[address] ROBERTO DIAS MD [facility] 01-16-2024 04:40-0400 Diastolic Blood Pressure Non-Invasive 88 mm[Hg] DR ROBERTO DIAS MD [facility] 01-16-2024 04:40-0400 Heart rate 77 /min DR ROBERTO DIAS MD [facility] 01-16-2024 04:40-0400 Respiratory rate 18 /min DR ROBERTO DIAS MD [facility] 01-16-2024 04:40-0400 Systolic Blood Pressure Non-Invasive 138 mm[Hg] DR ROBERTO DIAS MD [facility] 08-23-2023 08:03-0400 Body temperature 97 [degF] Dr. Bari Desai Work Phone: [facility] 08-23-2023 08:03-0400 Diastolic blood pressure 79 mm[Hg] Dr. Bari Desai Work Phone: [facility] 08-23-2023 08:03-0400 Heart rate 81 /min Dr. Bari Desai Work Phone: [facility] 08-23-2023 08:03-0400 Respiratory rate 14 /min Dr. Bari Desai Work Phone: [facility] 08-23-2023 08:03-0400 SaO2% (BldA) [Mass fraction] 98 % Dr. Bari Desai Work Phone: [facility] 08-23-2023 08:03-0400 Systolic blood pressure 125 mm[Hg] Dr. Bari Desai Work Phone: [facility] 08-23-2023 05:21-0400 Body height 167.[address] Bari Desai Work Phone: [facility] 08-23-2023 05:21-0400 Body mass index (BMI) [Ratio] 34.3 kg/m2 Dr. Bari Desai Work Phone: [facility] 08-23-2023 05:21-0400 Body weight 96.[address] Bari Desai Work Phone: [facility] 08-08-2023 23:17-0400 Diastolic Blood Pressure Non-Invasive 76 mm[Hg] DR HALEY HURT MD [facility] 08-08-2023 23:17-0400 Heart rate 70 /min DR HALEY HURT MD [facility] 08-08-2023 23:17-0400 Respiratory rate 16 /min DR HALEY HURT MD [facility] 08-08-2023 23:17-0400 Systolic Blood Pressure Non-Invasive 118 mm[Hg] DR HALEY HURT MD [facility] 08-08-2023 23:01-0400 Diastolic Blood Pressure Non-Invasive 92 mm[Hg] DR HALEY HURT MD [facility] 08-08-2023 23:01-0400 Heart rate 73 /min DR HALEY HURT MD [facility] 08-08-2023 23:01-0400 Mean blood pressure 101 mm[Hg] DR HALEY HURT MD [facility] 08-08-2023 23:01-0400 Respiratory rate 15 /min DR HALEY HURT MD [facility] 08-08-2023 23:01-0400 Systolic Blood Pressure Non-Invasive 115 mm[Hg] DR HALEY HURT MD [facility] 08-08-2023 22:33-0400 Diastolic Blood Pressure Non-Invasive 93 mm[Hg] DR HALEY HURT MD [facility] 08-08-2023 22:33-0400 Heart rate 79 /min DR HALEY HURT MD [facility] 08-08-2023 22:33-0400 Mean blood pressure 105 mm[Hg] DR HALEY HURT MD [facility] 08-08-2023 22:33-0400 Respiratory rate 16 /min DR HALEY HURT MD [facility] 08-08-2023 22:33-0400 Systolic Blood Pressure Non-Invasive 130 mm[Hg] DR HALEY HURT MD [facility] 08-08-2023 22:06-0400 Mean blood pressure 93 mm[Hg] DR HALEY HURT MD [facility] 08-08-2023 21:30-[address] HALEY HURT MD [facility] 08-08-2023 21:30-[address] HALEY HURT MD [facility] 08-08-2023 21:30-0400 Body height 167.[address] HALEY HURT MD [facility] 08-08-2023 21:30-0400 Body temperature 96.98 [degF] DR HALEY HURT MD [facility] 08-08-2023 21:30-0400 Body weight 97.[address] HALEY HURT MD [facility] 07-30-2023 10:23-0400 Body height 170.[address] Bari Desai Work Phone: [facility] 07-30-2023 10:23-0400 Body mass index (BMI) [Ratio] 34 kg/m2 Dr. Bari Desai Work Phone: [facility] 07-30-2023 10:23-0400 Body temperature 98.4 [degF] Dr. Bari Desai Work Phone: [facility] 07-30-2023 10:23-0400 Body weight 98.[address] Bari Desai Work Phone: [facility] 07-30-2023 10:23-0400 Diastolic blood pressure 79 mm[Hg] Dr. Bari Desai Work Phone: [facility] 07-30-2023 10:23-0400 Heart rate 71 /min Dr. Bari Desai Work Phone: [facility] 07-30-2023 10:23-0400 Respiratory rate 16 /min Dr. Bari Desai Work Phone: [facility] 07-30-2023 10:23-0400 SaO2% (BldA) [Mass fraction] 96 % Dr. Bari Desai Work Phone: [facility] 07-30-2023 10:23-0400 Systolic blood pressure 117 mm[Hg] Dr. Bari Desai Work Phone: [facility] 07-18-2023 12:41-0400 Body height 169.5 cm Lois Barajas MD Work Phone: [facility] [employer] 07-18-2023 12:41-0400 Body mass index (BMI) [Ratio] 34.46 kg/m2 Lois Barajas MD Work Phone: [facility] 07-18-2023 12:41-0400 Body weight 99.07 kg Lois Barajas MD Work Phone: [facility] 07-18-2023 12:41-0400 Diastolic blood pressure 79 mm[Hg] Lois Barajas MD Work Phone: [facility] 07-18-2023 12:41-0400 Heart rate 67 /min Lois Barajas MD Work Phone: [facility] 07-18-2023 12:41-0400 Systolic blood pressure 116 mm[Hg] Lois Barajas MD Work Phone: [facility] 06-15-2023 07:50-0500 Body height 169.5 cm Lois Barajas MD Work Phone: [facility] 06-15-2023 07:50-0500 Body mass index (BMI) [Ratio] 34.9 kg/m2 Lois Barajas MD Work Phone: [facility] 06-15-2023 07:50-0500 Body weight 100.34 kg Lois Barajas MD Work Phone: [facility] 06-15-2023 07:50-0500 Diastolic blood pressure 82 mm[Hg] Lois Barajas MD Work Phone: [facility] 06-15-2023 07:50-0500 Heart rate 61 /min Lois Barajas MD Work Phone: [facility] 06-15-2023 07:50-0500 Systolic blood pressure 117 mm[Hg] Lois Barajas MD Work Phone: [facility] 06-06-2023 09:54-0500 Body height 169.[address] Work Phone: [facility] 06-06-2023 09:54-0500 Body mass index (BMI) [Ratio] 35.16 kg/m2 Melissa Rdz RD Work Phone: [facility] 06-06-2023 09:54-0500 Body weight 101.[address] Work Phone: [facility] 04-26-2023 08:49-0500 Body height 170.[address] Bari Desai Work Phone: [facility] 04-26-2023 08:49-0500 Body mass index (BMI) [Ratio] 35.1 kg/m2 Dr. Bari Desai Work Phone: [facility] 04-26-2023 08:49-0500 Body temperature 98.7 [degF] Dr. Bari Desai Work Phone: [facility] 04-26-2023 08:49-0500 Body weight 102.[address] Bari Desai Work Phone: [facility] 04-26-2023 08:49-0500 Diastolic blood pressure 80 mm[Hg] Dr. Bari Desai Work Phone: [facility] 04-26-2023 08:49-0500 Heart rate 82 /min Dr. Bari Desai Work Phone: [facility] 04-26-2023 08:49-0500 Respiratory rate 18 /min Dr. Bari Desai Work Phone: [facility] 04-26-2023 08:49-0500 SaO2% (BldA) [Mass fraction] 96 % Dr. Bari Desai Work Phone: [facility] 04-26-2023 08:49-0500 Systolic blood pressure 118 mm[Hg] Dr. Bari Desai Work Phone: [facility] 03-22-2023 06:11-0500 Body temperature 98.4 [degF] Dr. Bari Desai Work Phone: [facility] 03-22-2023 06:11-0500 Diastolic blood pressure 91 mm[Hg] Dr. Bari Desai Work Phone: [facility] 03-22-2023 06:11-0500 Heart rate 73 /min Dr. Bari Desai Work Phone: [facility] 03-22-2023 06:11-0500 Respiratory rate 12 /min Dr. Bari Desai Work Phone: [facility] 03-22-2023 06:11-0500 SaO2% (BldA) [Mass fraction] 95 % Dr. Bari Desai Work Phone: [facility] 03-22-2023 06:11-0500 Systolic blood pressure 126 mm[Hg] Dr. Bari Desai Work Phone: [facility] 02-24-2023 21:42-0500 Diastolic Blood Pressure Non-Invasive [address] [facility] 02-24-2023 21:42-0500 Heart rate 69 /min DR DICK FONTAINE DO [facility] 02-24-2023 21:42-0500 Respiratory rate 16 /min DR DICK FONTAINE DO [facility] 02-24-2023 21:42-0500 Systolic Blood Pressure Non-Invasive [address]TA[address] DO [facility] 02-24-2023 20:28-0500 Blood Pressure Cuff Size DR DICK FONTAINE DO [facility] 02-24-2023 20:28-[address] DICK FONTAINE DO [facility] 02-24-2023 20:28-[address] DICK FONTAINE DO [facility] 02-24-2023 20:28-0500 Body temperature 98.6 [degF] DR DICK FONTAINE DO [facility] 02-24-2023 20:28-0500 Diastolic Blood Pressure Non-Invasive [address] DO [facility] 02-24-2023 20:28-0500 Heart rate 76 /min DR DICK FONTAINE DO [facility] 02-24-2023 20:28-0500 Respiratory rate 16 /min DR DICK FONTAINE DO [facility] 02-24-2023 20:28-0500 Systolic Blood Pressure Non-Invasive [address]TA[address] DO [facility] 01-16-2023 14:56-0400 Body height 167.6 cm All Davis MD Work Phone: [facility] 01-16-2023 14:56-0400 Body temperature 97.39 [degF] All Davis MD Work Phone: [facility] 01-16-2023 14:56-0400 Body weight 99.34 kg All Davis MD Work Phone: [facility] 01-16-2023 14:56-0400 Diastolic blood pressure 82 mm[Hg] All Davis MD Work Phone: [facility] 01-16-2023 14:56-0400 Heart rate 90 /min All Davis MD Work Phone: [facility] 01-16-2023 14:56-0400 SaO2% (BldA) [Mass fraction] 98 % All Davis MD Work Phone: [facility] 01-16-2023 14:56-0400 Systolic blood pressure 118 mm[Hg] All Davis MD Work Phone: [facility] 12-26-2022 09:36-0400 Body height 170.[address] Bari Desai Work Phone: [facility] 12-26-2022 09:36-0400 Body mass index (BMI) [Ratio] 33.5 kg/m2 Dr. Bari Desai Work Phone: [facility] 12-26-2022 09:36-0400 Body temperature 98.2 [degF] Dr. Bari Desai Work Phone: [facility] 12-26-2022 09:36-0400 Body weight 97.[address] Bari Desai Work Phone: [facility] 12-26-2022 09:36-0400 Diastolic blood pressure 74 mm[Hg] Dr. Bari Desai Work Phone: [facility] 12-26-2022 09:36-0400 Heart rate 68 /min Dr. Bari Desai Work Phone: [facility] 12-26-2022 09:36-0400 Respiratory rate 14 /min Dr. Bari Desai Work Phone: [facility] 12-26-2022 09:36-0400 SaO2% (BldA) [Mass fraction] 97 % Dr. Bari Desai Work Phone: [facility] 12-26-2022 09:36-0400 Systolic blood pressure 128 mm[Hg] Dr. Bari Desai Work Phone: [facility] 10-25-2022 11:46-0400 Body height 169.5 cm Cristian Rae MD Work Phone: [facility] [employer] Comment on above: [facility] 07-12-2023 11:46-0400 Body mass index (BMI) [Ratio] 33.23 kg/m2 Cristian Rae MD Work Phone: [facility] 10-25-2022 11:46-0400 Body temperature 97.9 [degF] Cristian Rae MD Work Phone: [facility] 10-25-2022 11:46-0400 Body weight 95.53 kg Cristian Rae MD Work Phone: [facility] 10-25-2022 11:46-0400 Diastolic blood pressure 80 mm[Hg] Cristian Rae MD Work Phone: [facility] 10-25-2022 11:46-0400 Heart rate 76 /min Cristian Rae MD Work Phone: [facility] 10-25-2022 11:46-0400 Respiratory rate 16 /min Cristian Rae MD Work Phone: [facility] 10-25-2022 11:46-0400 Systolic blood pressure 111 mm[Hg] Cristian Rae MD Work Phone: [facility] 10-17-2022 08:40-0400 Respiratory rate 16 /min Dr. Bari Desai Work Phone: [facility] 10-17-2022 08:40-0400 SaO2% (BldA) [Mass fraction] 98 % Dr. Bari Desai Work Phone: [facility] 10-17-2022 05:46-0400 Body height 167.[address] Bari Desai Work Phone: [facility] 10-17-2022 05:46-0400 Body mass index (BMI) [Ratio] 34.5 kg/m2 Dr. Bari Desai Work Phone: [facility] 10-17-2022 05:46-0400 Body temperature 97.7 [degF] Dr. Bari Desai Work Phone: [facility] 10-17-2022 05:46-0400 Body weight 97.[address] Bari Desai Work Phone: [facility] 10-17-2022 05:46-0400 Diastolic blood pressure 97 mm[Hg] Dr. Bari Desai Work Phone: [facility] 10-17-2022 05:46-0400 Heart rate 84 /min Dr. Bari Desai Work Phone: [facility] 10-17-2022 05:46-0400 Systolic blood pressure 149 mm[Hg] Dr. Bari Desai Work Phone: [facility] 08-31-2022 13:15-0400 Body height 167.[address] Bari Desai Work Phone: [facility] 08-31-2022 13:15-0400 Body mass index (BMI) [Ratio] 36.1 kg/m2 Dr. Bari Desai Work Phone: [facility] 08-31-2022 13:15-0400 Body weight 101.[address] Bari Desai Work Phone: [facility] 08-31-2022 13:15-0400 Diastolic blood pressure 87 mm[Hg] Dr. Bari Desai Work Phone: [facility] 08-31-2022 13:15-0400 Heart rate 80 /min Dr. Bari Desai Work Phone: [facility] 08-31-2022 13:15-0400 SaO2% (BldA) [Mass fraction] 96 % Dr. Bari Desai Work Phone: [facility] 08-31-2022 13:15-0400 Systolic blood pressure 128 mm[Hg] Dr. Bari Desai Work Phone: [facility] 08-02-2022 13:19-0400 Body temperature 97.6 [degF] Dr. Bari Desai Work Phone: [facility] 08-02-2022 13:19-0400 Diastolic blood pressure 82 mm[Hg] Dr. Bari Desai Work Phone: [facility] 08-02-2022 13:19-0400 Heart rate 71 /min Dr. Bari Desai Work Phone: [facility] 08-02-2022 13:19-0400 Respiratory rate 16 /min Dr. Bari Desai Work Phone: [facility] 08-02-2022 13:19-0400 SaO2% (BldA) [Mass fraction] 93 % Dr. Bari Desai Work Phone: [facility] 08-02-2022 13:19-0400 Systolic blood pressure 138 mm[Hg] Dr. Bari Desai Work Phone: [facility] 08-02-2022 13:10-0400 Inhaled oxygen flow rate 94 L/min Dr. Bari Desai Work Phone: [facility] 08-02-2022 11:33-0400 Body height 167.[address] Bari Desai Work Phone: [facility] 08-02-2022 11:33-0400 Body mass index (BMI) [Ratio] 36.4 kg/m2 Dr. Bari Desai Work Phone: [facility] 08-02-2022 11:33-0400 Body weight 102.[address] Bari Desai Work Phone: [facility] 06-14-2022 09:24-0500 Body mass index (BMI) [Ratio] 36.1 kg/m2 Dr. Bari Desai Work Phone: [facility] 06-14-2022 09:24-0500 Body weight 101.[address] Bari Desai Work Phone: [facility] 06-14-2022 09:24-0500 Diastolic blood pressure 84 mm[Hg] Dr. Bari Desai Work Phone: [facility] 06-14-2022 09:24-0500 Heart rate 83 /min Dr. Bari Desai Work Phone: [facility] 06-14-2022 09:24-0500 SaO2% (BldA) [Mass fraction] 97 % Dr. Bari Desai Work Phone: [facility] 06-14-2022 09:24-0500 Systolic blood pressure 121 mm[Hg] Dr. Bari Desai Work Phone: [facility] 05-31-2022 21:08-0500 Body height 170.[address] SUMANTH LEON MD [facility] 05-31-2022 21:08-0500 Body temperature 98.24 [degF] DR SUMANTH LEON MD [facility] 05-31-2022 21:08-0500 Body weight [address] SUMANTH LEON MD [facility] 05-31-2022 21:08-0500 Diastolic Blood Pressure Non-Invasive [address] LEON MD [facility] 05-31-2022 21:08-0500 Heart rate 86 /min DR SUMANTH LEON MD [facility] 05-31-2022 21:08-0500 Respiratory rate 18 /min DR SUMANTH LEON MD [facility] 05-31-2022 21:08-0500 Systolic Blood Pressure Non-Invasive [address] LEON MD [facility] 03-02-2022 09:00-0500 Diastolic blood pressure 73 mm[Hg] [facility] 03-02-2022 09:00-0500 Heart rate 70 /min [facility] 03-02-2022 09:00-0500 Respiratory rate 16 /min [facility] 03-02-2022 09:00-0500 Systolic blood pressure 110 mm[Hg] [facility] 03-02-2022 08:15-0500 Body height 167.64 cm [facility] 03-02-2022 08:15-0500 Body mass index (BMI) [Ratio] 33 kg/m2 [facility] 03-02-2022 08:15-0500 Body temperature 98.2 [degF] [facility] 03-02-2022 08:15-0500 Body weight 92.98 kg [facility] 03-02-2022 08:15-0500 SaO2% (BldA) [Mass fraction] 98 % [facility] 12-24-2021 22:48-0400 Diastolic blood pressure 84 mm[Hg] [facility] Work Phone: 12-24-2021 22:48-0400 Heart rate 74 /min [facility] Work Phone: 12-24-2021 22:48-0400 Respiratory rate 16 /min [facility] Work Phone: 12-24-2021 22:48-0400 SaO2% (BldA) [Mass fraction] 98 % [facility] Work Phone: 12-24-2021 22:48-0400 Systolic blood pressure 110 mm[Hg] [facility] Work Phone: 12-24-2021 19:22-0400 Inhaled oxygen flow rate 4 L/min [facility] Work Phone: 12-24-2021 19:18-0400 Body height 167.64 cm [facility] Work Phone: 12-24-2021 19:18-0400 Body mass index (BMI) [Ratio] 34 kg/m2 [facility] Work Phone: 12-24-2021 19:18-0400 Body temperature 96.6 [degF] [facility] Work Phone: 12-24-2021 19:18-0400 Body weight 95.8 kg [facility] Work Phone: 12-02-2021 15:08-0400 Diastolic blood pressure 86 mm[Hg] [facility] Work Phone: 12-02-2021 15:08-0400 Heart rate 85 /min [facility] Work Phone: 12-02-2021 15:08-0400 Respiratory rate 17 /min [facility] Work Phone: 12-02-2021 15:08-0400 SaO2% (BldA) [Mass fraction] 99 % [facility] Work Phone: 12-02-2021 15:08-0400 Systolic blood pressure 126 mm[Hg] [facility] Work Phone: 12-02-2021 12:55-0400 Body mass index (BMI) [Ratio] 33 kg/m2 [facility] Work Phone: 12-02-2021 12:55-0400 Body weight 92.9 kg [facility] Work Phone: 12-02-2021 12:52-0400 Body temperature 97.6 [degF] [facility] Work Phone: 11-06-2021 23:56-0400 Diastolic blood pressure 102 mm[Hg] [facility] Work Phone: 11-06-2021 23:56-0400 Heart rate 73 /min [facility] Work Phone: 11-06-2021 23:56-0400 Respiratory rate 18 /min [facility] Work Phone: 11-06-2021 23:56-0400 SaO2% (BldA) [Mass fraction] 99 % [facility] Work Phone: 11-06-2021 23:56-0400 Systolic blood pressure 132 mm[Hg] [facility] Work Phone: 11-06-2021 19:40-0400 Body height 167.64 cm [facility] Work Phone: 11-06-2021 19:40-0400 Body mass index (BMI) [Ratio] 32.1 kg/m2 [facility] Work Phone: 11-06-2021 19:40-0400 Body temperature 97.2 [degF] [facility] Work Phone: 11-06-2021 19:40-0400 Body weight 90.4 kg [facility] Work Phone: 03-31-2021 06:07-0500 Body height 170.[address] ROBERTO DIAS MD [facility] 03-31-2021 06:07-0500 Body temperature 97.7 [degF] DR ROBERTO DIAS MD [facility] 03-31-2021 06:07-0500 Body weight 93.[address] ROBERTO DIAS MD [facility] 03-31-2021 06:07-0500 Diastolic blood pressure 92 mm[Hg] DR ROBERTO DIAS MD [facility] 03-31-2021 06:07-0500 Heart rate 89 /min DR ROBERTO DIAS MD [facility] 03-31-2021 06:07-0500 Respiratory rate 18 /min DR ROBERTO DIAS MD [facility] 03-31-2021 06:07-0500 Systolic blood pressure 138 mm[Hg] DR ROBERTO DIAS MD [facility] Encounters Encounter Date Encounter Type Care Provider Facility Start: 01-21-2025 End: 01-21-2025 Patient encounter procedure Rubio Mustafa [facility] Work Phone: Start: 01-21-2025 End: 01-21-[address] Bari Desai DO Work Phone: [facility] Start: 01-15-2025 ambulatory Bari Giselle Facility: [facility] Start: 11-20-2024 ambulatory [facility] Facility: [facility] Start: 11-13-2024 ambulatory Melissa VALDES Facility:[facility] Start: 10-22-2024 End: 10-22-[address] Bari Desai DO Work Phone: [facility] [place] Start: 10-22-2024 End: 10-22-[address] 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 Start: 09-01-2024 End: 09-01-2024 Emergency department patient visit [facility] Start: 08-27-2024 ambulatory NEFRANCISCO JNDU KEKE [facility] Ambulatory Start: 08-26-2024 ambulatory NEILENDU KEKE [facility] Ambulatory Start: 07-07-2024 End: 07-07-2024 Patient encounter procedure Rubio Mustafa [facility] Work Phone: Start: 07-07-2024 End: 07-07-[address] Work Phone: Gastroenterology Comment on above: Class 1 obesity due to excess calories with body mass index (BMI) of 33.0 to 33.9 in adult, unspecified whether serious comorbidity present (Primary Dx); Dietary counseling and surveillance Start: 07-07-2024 End: 07-07-2024 Telemedicine consultation with patient Tran Saunders JANAE Work Phone: Gastroenterology Start: 06-06-2024 End: 06-12-2024 ambulatory Jessica Rodrigues MD Work Phone: Gastroenterology Comment on above: Question about egs Start: 06-03-2024 End: 06-03-2024 ambulatory Jessica Rodrigues MD Work Phone: Gastroenterology Comment on above: Obesity, Class I, BM I 30-34.9 (Primary Dx); Type 2 diabetes mellitus without complication, without long-term current use of insulin (HCC) Start: 06-03-2024 End: 06-03-2024 Telemedicine consultation with patient Jessica Rodrigues MD Work Phone: Gastroenterology Start: 06-03-2024 End: 06-03-2024 ambulatory Tran Saunders JANAE Work Phone: Gastroenterology Comment on above: Class 1 obesity due to excess calories with body mass index (BMI) of 33.0 to 33.9 in adult, unspecified whether serious comorbidity present (Primary Dx); Dietary counseling and surveillance Start: 06-03-2024 End: 06-03-2024 Telemedicine consultation with patient Tran Saunders JANAE Work Phone: Gastroenterology Start: 05-28-2024 End: 05-28-2024 Admission to same day surgery center [facility] [employer] Work Phone: General Surgery Comment on above: Class 1 obesity with serious comorbidity and body mass index (BMI) of 33.0 to 33.9 in adult, unspecified obesity type (Primary Dx); Type 2 diabetes (HCC); Fatty liver disease, nonalcoholic; Gastroesophageal reflux disease without esophagitis; PCOS (polycystic ovarian syndrome); Hypertension, unspecified type Start: 05-28-2024 End: 05-28-2024 ambulatory [facility] Facility:[facility] Start: 05-28-2024 End: 05-28-2024 Telemedicine consultation with patient Mihaela Dow APRN.RADHA Work Phone: General Surgery Start: 05-26-2024 End: 05-26-2024 ambulatory LAINE DARBY Facility:[facility] Start: 05-26-2024 End: 05-26-2024 Patient encounter procedure Laine Darby MD Work Phone: OB/Gynecology Comment on above: Type 2 diabetes (HCC ) (Primary Dx); Hypertriglyceridemia; Low HDL (under 40); Fatty liver disease, nonalcoholic; Gastroesophageal reflux disease without esophagitis; PCOS (polycystic ovarian syndrome); Hypertension, unspecified type; Class 1 obesity with serious comorbidity and body mass index (BMI) of 33.0 to 33.9 in adult, unspecified obesity type Start: 05-26-2024 ambulatory Altagracia Ambrose Facility [facility] Start: 05-23-2024 End: 05-23-2024 ambulatory [facility] Facility:[facility] Start: 04-28-2024 End: 04-28-2024 ambulatory [facility] Facility:[facility] Start: 04-15-2024 End: 04-15-2024 ambulatory PERRY PERSAUD Facility:[facility] Start: 04-15-2024 Encounter for gynecological examination (general) (routine) without abnormal findings LAINE DARBY [facility] Start: 04-15-2024 End: 04-15-2024 Patient encounter status Screen [facility] Start: 04-15-2024 End: 04-15-2024 Subsequent hospital visit by physician Screen Mammo [facility] Mammogram Comment on above: Encounter for gyneco logical examination (general) (routine) without abnormal findings [Z01.419] Start: 04-14-2024 End: 04-14-2024 ambulatory PERRY PERSAUD Facility:[facility] Start: 04-14-2024 End: 04-14-2024 Patient encounter procedure Perry Persaud MD Work Phone: OB/Gynecology Comment on above: Encounter for gyneco logical examination (general) (routine) without abnormal findings (Primary Dx); Screening for cervical cancer; Encounter for screening for human papillomavirus (HPV); Encounter for screening mammogram for breast cancer Start: 04-14-2024 End: 04-14-2024 Patient encounter status Perry Persaud MD Work Phone: [facility] Start: 03-05-2024 End: 03-05-2024 ambulatory Bari Desai Facility:[facility] Start: 01-16-2024 End: 01-16-2024 Emergency department patient visit DR ROBERTO DIAS MD Facility:[facility] Start: 08-23-2023 End: 08-23-2023 Emergency department patient visit Dr. Bari Desai Work Phone: [facility]Emergency Department Work Phone: Start: 08-22-[address] Bari Desai Work Phone[facility] Start: 08-08-2023 End: 08-09-2023 Emergency department patient visit DR HALEY HURT MD Facility: Start: 08-08-2023 End: 08-08-2023 Emergency department patient visit DR HALEY HURT MD [facility] Start: 08-01-2023 End: 01-20-2025 Telephone encounter Provider Not In System Work Phone: [facility] [place] Start: 08-01-2023 End: 08-01-[address] Bari Desai Work Phone: [facility] Work Phone: Start: 08-01-2023 End: 08-01-[address] Bari Desai Work Phone: [facility] Work Phone: Start: 07-30-2023 End: 07-30-[address] Bari Desai Work Phone: [facility] Endocrinology Work Phone: Start: 07-18-2023 End: 07-18-2023 ambulatory [facility] Start: 07-18-2023 End: 07-18-2023 Office outpatient visit 15 minutes Lois Barajas MD Work Phone: [facility] Comment on above: Type 2 diabetes storm itus without complication, without long- term current use of insulin (CMS/HCC) (HCC) (Primary Dx); BMI 34.0-34.9,adult; Class 1 obesity with serious comorbidity and body mass index (BMI) of 34.0 to 34.9 in adult, unspecified obesity type Start: 06-15-2023 End: 06-15-2023 ambulatory [facility] Start: 06-15-2023 End: 06-15-2023 Office outpatient new 45 minutes Lois Barajas MD Work Phone: [facility] Comment on above: Type 2 diabetes storm itus without complication, without long- term current use of insulin (CMS/HCC) (HCC) (Primary Dx); BMI 34.0-34.9,adult; Class 1 obesity with serious comorbidity and body mass index (BMI) of 34.0 to 34.9 in adult, unspecified obesity type Start: 06-06-2023 End: 06-06-2023 Clinical Support Cristian Rae MD Work Phone: [facility] Comment on above: Controlled type 2 di abetes mellitus without complication, unspecified whether parts counterman insulin use (HCC) (Primary Dx) Start: 05-02-2023 End: 05-02-[address] Bari Desai Work Phone: [facility] Work Phone: Start: 05-02-2023 End: 05-02-[address] Bari Desai Work Phone: [facility] Work Phone: Start: 04-26-2023 End: 04-26-[address] Bari Desai Work Phone: [facility] Work Phone: Start: 04-26-2023 End: 04-26-[address] Bari Desai Work Phone: [facility] Endocrinology Work Phone: Start: 03-22-2023 End: 03-22-[address] Bari Desai Work Phone: [facility] Work Phone: Start: 02-24-2023 End: 02-25-2023 Emergency department patient visit DR DICK FONTAINE DO Facility:[facility] Start: 02-24-2023 End: 02-24-2023 Emergency department patient visit DR DICK FONTAINE DO [facility] Start: 01-24-2023 End: 01-24-[address] Bari Desai Work Phone: [facility] Work Phone: Start: 01-24-2023 End: 01-24-[address] Bari Desai Work Phone: [facility]-Cat Scan, [facility] Work Phone: Start: 01-17-2023 Telephone encounter All Davis MD Work Phone: General Surgery Comment on above: Request Outside [facility] Records Start: 01-16-2023 End: 01-16-2023 Patient encounter procedure All Davis MD Work Phone: General Surgery Comment on above: Breast pain, left (P rimary Dx); Incisional pain Start: 01-08-2023 Telephone encounter Melissa bui RD Work Phone: [facility] [place] Comment on above: Cancelled Appointmen t Start: 01-01-2023 End: 01-01-[address] Bari Desai Work Phone: [facility]-Laboratory, Specimen Work Phone: Start: 12-26-2022 End: 12-26-[address] Bari Desai Work Phone: [facility] Work Phone: Start: 12-26-2022 End: 12-26-[address] Bari Desai Work Phone: [facility] Work Phone: Start: 12-20-2022 Telephone encounter Cristian mosley MD Work Phone: [facility] Advanced Laproscopic Surgery Comment on above: refer to different D r. Start: 10-30-2022 Documentation procedure Cristian Rae MD Work Phone: [facility] [place] Comment on above: EGD (EGD order) Start: 10-25-2022 Telephone encounter Nyla mcintyre MEDICAL ADMINISTRATIVE TECHNICIAN - [employer] Work Phone: [facility] [place] Comment on above: Financial File (Donna ncial File 2022); Surgery Scheduling (Initial scheduling-orders placed) Start: 10-25-2022 End: 10-25-2022 ambulatory CRISTIAN RAE [facility] Start: 10-25-2022 End: 10-25-2022 Office outpatient new 45 minutes Cristian Rae MD Work Phone: [facility] [place] Comment on above: Class 2 obesity with body mass index (BMI) of 35.0 to 35.9 in adult, unspecified obesity type, unspecified whether serious comorbidity present; Primary hypertension; Controlled type 2 diabetes mellitus without complication, unspecified whether parts counterman insulin use (HCC); Hypothyroidism, unspecified type; Back pain, unspecified back location, unspecified back pain laterality, unspecified chronicity Start: 10-17-2022 End: 10-17-2022 Emergency department patient visit Dr. Bari Desai Work Phone: [facility]-Emergency Department Work Phone: Start: 09-19-2022 End: 09-19-[address] Bari Desai Work Phone: [facility]-Nuclear Medicine, [facility] Work Phone: Start: 09-12-2022 End: 09-12-[address] Bari Desai Work Phone: [facility] Work Phone: Start: 09-12-2022 End: 09-12-[address] Bari Desai Work Phone[facility] Start: 08-31-2022 End: 08-31-[address] Bari Desai Work Phone: [facility] Gastroenterology Start: 08-24-2022 End: 08-24-2022 ambulatory [facility] Start: 08-09-2022 End: 08-09-[address] Bari Desai Work Phone: [facility] Work Phone: Start: 08-09-2022 End: 08-09-[address] Bari Desai Work Phone: [facility]-Outpatient Breast Imaging Start: 08-08-2022 Non-patient / Non-visit Dr. Fransico Desai Work Phone: [facility] Start: 08-02-2022 Non-patient / Non-visit Dr. Fransico Desai Work Phone: [facility] Start: 08-02-2022 End: 08-02-2022 Admission to same day surgery center Dr. Bari Desai Work Phone: [facility]-Endoscopy Start: 08-01-2022 End: 08-01-[address] Bari Desai Work Phone: [facility] Work Phone: Start: 08-01-2022 End: 08-01-[address] Bari Desai Work Phone: [facility]-Physical Therapy Start: 07-26-2022 End: 07-26-2022 ambulatory RAYMUNDO CHEEK MD [facility] Start: 06-14-2022 End: 06-14-[address] Bari Desai Work Phone: [facility] Gastroenterology Start: 05-31-2022 End: 05-31-2022 Emergency department patient visit DR SUMANTH LEON MD [facility] Start: 05-12-2022 End: 05-12-2022 ambulatory [facility] Work Phone: Start: 05-12-2022 End: 05-12-2022 Patient encounter procedure [facility] Start: 04-25-2022 ambulatory Jess Guerrero RN [facility] Start: 04-25-2022 Patient encounter procedure Jess Guerrero RN NURSE HEEL SCORER Comment on above: Referral Request Start: 04-04-2022 End: 04-04-2022 Emergency department patient visit HUNTER AMPARO FENG [facility] Start: 03-02-2022 End: 03-02-2022 ambulatory [facility] Work Phone: Start: 03-02-2022 End: 03-02-2022 Patient encounter procedure [facility] Start: 01-04-2022 End: 01-04-2022 ambulatory [facility] Work Phone: Start: 01-04-2022 End: 01-04-2022 Patient encounter procedure [facility] Start: 12-24-2021 End: 12-24-2021 Emergency department patient visit [facility]Emergency Department Start: 12-02-2021 End: 12-02-2021 Emergency department patient visit [facility]Emergency Department Start: 11-22-2021 End: 11-22-2021 Patient encounter procedure [facility] Ul[facility] Start: 11-07-2021 End: 11-08-2021 ambulatory BARI BERTA [facility] Start: 11-06-2021 End: 11-06-2021 Emergency department patient visit [facility]Emergency Department Start: 09-14-2021 End: 09-15-2021 ambulatory BARI HAMPTON [facility] Start: 09-06-2021 Encounter for other preprocedural examination VANESSA ALDRICH [facility] Start: 09-05-2021 End: 09-06-2021 ambulatory VANESSA ALDRICH [facility] Start: 03-31-2021 End: 03-31-2021 Emergency department patient visit DR ROBERTO DIAS MD [facility] Procedures Date Procedure Procedure Detail Performing Clinician Start: 10-22-2024 Vitamin D, 25-hydroxy measurement Dr. Fransico Desai DO Work Phone: Comment on above: Vitamin D StatusDeficiency: <20 ng/mL (5 0nmol/L)Insufficiency: 20-30 ng/mL (50-75 nmol/L)Sufficiency: 30-100 ng/mL (75-250 nmol/L)Toxicity: >100 ng/mL (>250 nmol/L) Start: 08-23-2023 Diagnostic radiography of abdomen Dr. Fransico Desai Work Phone: Start: 08-01-[address] Bari chaudhari Work Phone: Start: 05-02-[address] Bari loomis Work Phone: Start: 01-24-2023 CT of chest without contrast Dr. Bari Flores Work Phone: Start: 12-26-2022 Radiologic examination of knee Dr. Bari Desai Work Phone: Start: 10-17-2022 Computed tomography of abdomen and pelvis with intravenous contrast Dr. Bari Desai Work Phone: Start: 09-19-2022 Radionuclide gastric emptying study Dr. Bari Desai Work Phone: Start: 08-09-2022 End: 08-09-[address] Bari Desai Work Phone: Start: 08-09-[address] Bari azevdeo Work Phone: Start: 08-02-[address] Bari loomis Work Phone: Start: 03-02-2022 CT of pelvis without contrast Start: 01-04-2022 Positron emission tomography with computed tomography Start: 12-24-2021 CT of abdomen and pelvis without contrast Start: 12-24-2021 Plain chest X-ray Start: 11-22-2021 Ultrasonography of breast Start: 11-06-2021 Computed tomography of abdomen and pelvis with intravenous contrast section DR ROBERTO JACK MD Plan of Treatment Date Care Activity Detail Author Start: 2048 RSV Immunization for Adults (1 - 1-dose 75+ series) RSV Immunization for Adults (1 - 1-dose 75+ series) [facility] Start: 2033 RSV Immunization aged 60 or older (1 - 1-dose 60+ series) RSV Immunization aged 60 or older (1 - 1-dose 60+ series) [facility] Start: 04-14-2029 Screening for malignant neoplasm of cervix Cervical Cancer Screening [facility] Start: 11-04-2026 Screening for malignant neoplasm of colon [facility] Start: 04-15-2025 Screening for malignant neoplasm of breast Mammogram Screening [facility] Start: 04-15-2025 End: 04-15-2025 Patient encounter procedure 04/15/2025 8:00 AM EST Office Visit OB/Gynecology [address] [place] [id number] Perry Persaud MD [address] [place] [id number] Annual OB/Gynecology Comment on above: Annual Start: 12-15-2024 COVID-19 Vaccine ( season) COVID-19 Vaccine () [facility] Start: 12-15-2024 Influenza vaccination [facility] Start: 09-29-2024 End: 09-29-2024 Patient encounter procedure 09/29/2024 9:50 AM EDT Office Visit OB/Gynecology [address] [place] [address] Laine Colon MD [address] [place], [place] [id number] weight management follow up OB/Gynecology Comment on above: weight management follow up Start: 09-17-2024 End: 09-17-2024 Patient encounter procedure 09/17/2024 1:00 PM EDT Appointment Gastroenterology [address] [address] Jessica Rodrigues MD [address] [place] [address] Obesity, Class I, BMI 30-34.9 [E66.811] Gastroenterology Comment on above: Obesity, Class I, BMI 30-34.9 [E66.811] Start: 09-12-2024 End: 09-12-2024 ambulatory 09/12/2024 8:00 AM EDT [facility] Gastroenterology [address] [place] [address] pre ESG Gastroenterology Comment on above: pre ESG Start: 09-03-2024 End: 09-03-2024 Patient encounter procedure 09/03/2024 8:50 AM EDT Office Visit OB/Gynecology [address] [place] [address] Laine Colon MD [address] [place] [address] weight management follow up OB/Gynecology Comment on above: weight management follow up Start: 08-22-2024 End: 08-22-2024 Patient encounter procedure Gastroenterology Comment on above: Obesity, Class I, BMI 30-34.9 [E66.811] Start: 07-17-2024 End: 07-17-2024 Patient encounter procedure 07/17/2024 9:20 AM EDT Office Visit OB/Gynecology [address] [place] [address] Laine Colon MD [address] [place] [address] weight management follow up OB/Gynecology Comment on above: weight management follow up Start: 07-14-2024 End: 07-14-2024 ambulatory 07/14/2024 10:00 AM EDT [facility] Psychology [address] [address] Cherry Epps, [place]AY[place] [address] [place] [address] Class 1 obesity with serious comorbidity and body mass index (BMI) of 33.0 to 33... Psychology Comment on above: Class 1 obesity with serious comorbidity and body mass index (BMI) of 33.0 to 33... Start: 07-07-2024 End: 07-07-2024 Follow-up encounter 07/07/2024 8:00 AM EDT [facility] Gastroenterology [address] [address] Tran Saunders, RD [address] [place], [place] [id number] follow-up Gastroenterology Comment on above: follow-up Start: 05-28-2024 End: 05-28-2024 Admission to same day surgery center 05/28/2024 7:00 AM [facility] General Surgery [address] [place] [address] Mihaela Dow APRN.[employer]WN CARETAKER [address] [place] [address] Fatty liver disease, nonalcoholic [K76.0]; Gastroesophageal reflux disease without esophagitis [K21.9]; PCOS (polycystic ovarian syndrome) [E28.2]; Hypertension, unspecified type [I10]; Type 2 diabetes (HCC) [E11.9]; Class 1 obesity with serious comorbidity and body mass index (BMI) of 33.0 to 33.9 in adult, unspecified obesity type [E66.811, Z68.33] General Surgery Comment on above: Fatty liver disease, nonalcoholic [K76.0 ]; Gastroesophageal reflux disease without esophagitis [K21.9]; PCOS (polycystic ovarian syndrome) [E28.2]; Hypertension, unspecified type [I10]; Type 2 diabetes (HCC) [E11.9]; Class 1 obesity with serious comorbidity and body mass index (BMI) of 33.0 to 33.9 in adult, unspecified obesity type [E66.811, Z68.33] Start: 04-15-2024 End: 04-15-2024 Patient encounter procedure 04/15/2024 7:30 AM EST Appointment Mammogram [address] [place], [place] [phone] Mammogram Start: 12-16-2023 Covid-19 Vaccine ( season) Covid-19 Vaccine ( season) [facility] Start: 12-16-2023 Influenza vaccination [facility] Start: 08-23-2023 [facility] Start: 08-15-2023 End: 08-15-2023 Patient encounter procedure 08/15/2023 9:50 AM EDT Office Visit [facility] [place] [address] [place] [phone] Lois Barajas MD [address] [place], [place] [phone] [facility] [place] Start: 08-10-2023 Screening for malignant neoplasm of breast Mammogram [facility] Start: 07-20-2023 End: 07-20-2023 Patient encounter procedure 07/20/2023 8:20 AM EDT Office Visit [facility] [place] [address] [place] [phone] Lois Barajas MD [address] [place] [address] [facility] [place] Start: 06-15-2023 End: 06-15-2023 Patient encounter procedure 06/15/2023 7:30 AM EST Office Visit [facility] [place] [address] [place] [phone] Lois Barajas MD [address] [place], [place] [phone] [facility] [place] Start: 2023 Screening for malignant neoplasm of lung Lung Cancer Screening [facility] Start: 2023 Shingrix Vaccine (1 of 2) Shingrix Vaccine (1 of 2) [facility] Start: 2023 Zoster Vaccines (1 of 2) Zoster Vaccines (1 of 2) [facility] Start: 02-07-2023 End: 02-07-2023 Patient encounter procedure 02/07/2023 9:00 AM EDT Office Visit [facility] [place] [address] [place] [phone] Lois Barajas MD [address] [place], [place] [phone] [facility] [place] Start: 01-22-2023 End: 01-22-2023 Patient encounter procedure 01/22/2023 9:10 AM EDT Office Visit [facility] Pulmonary and Sleep Medicine [address] [place] [phone] Bushra Hernández, MEDICAL ADMINISTRATIVE TECHNICIAN - LAWN CARET[employer]ER [address] [place] [address] [facility] Start: 01-08-2023 End: 01-08-2023 Clinical Support 01/08/2023 9:00 AM EDT Clinical Support [facility] [address] [place] [phone] [place], [place] [phone] [facility] [place] Start: 12-26-2022 Patient referral [facility] Work Phone: Start: 12-15-2022 COVID-19 Vaccine ( season) COVID-19 Vaccine ( season) [facility] Start: 12-15-2022 Influenza vaccination Influenza Vaccine (#1) [facility] Start: 12-01-2022 End: 12-01-2022 Patient encounter procedure 12/01/2022 8:30 AM EDT Office Visit [facility] Plastic & Reconstructive Surgery [address] [place] [address] Pipo Izquierdo MD [address] [facility] [address] [place], [place] [phone] [facility]astic [facility] Re[facility]ive [facility] Start: 11-15-2022 End: 11-15-2022 Patient encounter procedure 11/15/2022 2:30 PM EDT Office Visit [facility] [place] [address] [place] [phone] Lois Barajas MD [address] [place], [place] [phone] [facility] [place] Start: 11-01-2022 End: 11-01-2022 Clinical Support 11/01/2022 10:00 AM EDT Clinical Support [facility] [place] [address] [place] [phone] Cristian Rae MD [address] [facility] [address] [place], [place] [phone] Melissa Rdz [address] [facility] [address] [place], [place] [phone] [facility] [place] Start: 08-09-2022 Digital breast tomosynthesis bilateral BREAST TOMOSYNTHESIS [facility] Start: 08-08-2022 Patient referral [facility] Work Phone: Start: 08-02-2022 Egd transoral biopsy single/multiple EGD BIOPSY SINGLE/MULTIPLE [facility] Start: 08-02-2022 Patient discharge [facility] Start: 04-16-2022 DEPRESSION ASSESSMENT DEPRESSION ASSESSMENT [facility] Start: 03-02-2022 Catheterization of vein [facility] Start: 03-02-2022 Oxygen therapy [facility] Start: 03-02-2022 Patient discharge [facility] Start: 03-02-2022 Vital signs measurements [facility] Start: 12-15-2021 Influenza vaccination INFLUENZA (#1) [facility] Start: 2018 COLOGUARD (FIT-DNA) COLOGUARD (FIT-DNA) [facility] Start: 2018 Colonoscopy COLONOSCOPY [facility] Start: 2018 COLORECTAL CANCER SCREENING COLORECTAL CANCER SCREENING [facility] Start: [address] COLONOGRAPHY [facility] Start: 2018 DIABETES SCREEN DIABETES SCREEN [facility] Start: 2018 Diabetes Screening Diabetes Screening [facility] Start: 2018 FECAL OCCULT BLOOD FECAL OCCULT BLOOD [facility] Start: 2018 Lipid 1996 panel - Serum or Plasma Lipid Screening [facility] Start: 2018 Lipid panel Lipid Screening [facility] Start: 2018 LIPID SCREEN LIPID SCREEN [facility] Start: 2018 Screening for malignant neoplasm of colon [facility] Start: 2018 SIGMOIDOSCOPY SIGMOIDOSCOPY [facility] Start: 2013 Mammography [facility] Start: 2013 Screening for malignant neoplasm of breast [facility] Start: 2003 HPV TESTING HPV TESTING [facility] Start: 2003 Screening for malignant neoplasm of cervix [facility] Start: 1994 PAP TESTING PAP TESTING [facility] Start: 1994 Screening for malignant neoplasm of cervix [facility] Start: 1992 DTaP/Tdap/Td Vaccines (1 - Tdap) DTaP/Tdap/Td Vaccines (1 - Tdap) [facility] Start: 1992 Hepatitis B Vaccine (1 of 3 - 19+ 3-dose series) Hepatitis B Vaccine (1 of 3 - 19+ 3-dose series) [facility] Start: 1992 Hepatitis B Vaccines (1 of 3 - 19+ 3-dose series) Hepatitis B Vaccines (1 of 3 - 19+ 3-dose series) [facility] Start: 1992 Pneumococcal Vaccine: 50+ (1 of 2 - PCV) Pneumococcal Vaccine: 50+ (1 of 2 - PCV) [facility] Start: 1992 Pneumococcal Vaccine: 50+ Years (1 of 2 - PCV) Pneumococcal Vaccine: 50+ Years (1 of 2 - PCV) [facility] Start: 1992 Urine microalbumin profile [facility] Start: 1991 Annual PCP Team Chronic Disease Visit Annual PCP Team Chronic Disease Visit [facility] Start: 1991 Anxiety Screening Anxiety Screening [facility] Start: 1991 BP Controlled (<130/80) BP Controlled (<130/80) [facility] Start: 1991 Depression Screening Depression Screening [facility] Start: 1991 Diabetes: Estimated Glomerular Filtration Rate for Kidney [facility] Diabetes: Estimated Glomerular Filtration Rate for Kidney [facility] Start: 1991 Diabetes: Urine Albumin-Creatinine Ratio for Kidney [facility] Diabetes: Urine Albumin-Creatinine Ratio for Kidney [facility] Start: 1991 Hepatitis B surface antibody level LDL Cholesterol [facility] Start: 1991 HEPATITIS C SCREENING HEPATITIS C SCREENING [facility] Start: 1991 Hepatitis C screening Hepatitis C Screening [facility] Start: 1991 HIV SCREENING HIV SCREENING [facility] Start: 1991 HIV screening HIV Screening [facility] Start: 1985 Depression Screening Depression Screening [facility] Start: 1983 Diabetic foot examination [facility] Start: 1983 Glaucoma screening [facility] Start: 1983 Hepatitis B screening Urine Albumin:Creatinine Ratio [facility] Start: 1983 Preventive dental service Diabetes: Dental Exam [facility] Start: 1979 Pneumococcal Vaccine: Pediatrics (0 to 5 Years) and At-Risk Patients (6 to 64 Years) (1 - PCV) Pneumococcal Vaccine: Pediatrics (0 to 5 Years) and At-Risk Patients (6 to 64 Years) (1 - PCV) [facility] Start: 1979 Pneumococcal Vaccine: Pediatrics (0 to 5 Years) and At-Risk Patients (6 to 64 Years) (1 of 2 - PCV) Pneumococcal Vaccine: Pediatrics (0 to 5 Years) and At-Risk Patients (6 to 64 Years) (1 of 2 - PCV) [facility] Start: 1978 Hemoglobin A1c measurement HbA1C [facility] Start: 1974 MMR Vaccines (1 of 1 - Standard series) MMR Vaccines (1 of 1 - Standard series) [facility] Start: 1973 COVID-19 VACCINE (#1) COVID-19 VACCINE (#1) [facility] Start: 1973 Hemoglobin A1c measurement Diabetes: Hemoglobin A1C [facility] Start: 1973 HEPATITIS B (1 of 3 - 3-dose series) HEPATITIS B (1 of 3 - 3-dose series) [facility] Start: 1973 Hepatitis B Vaccine (1 of 3 - 3-dose series) Hepatitis B Vaccine (1 of 3 - 3-dose series) [facility] Start: 1973 Hepatitis B Vaccines (1 of 3 - 3-dose series) Hepatitis B Vaccines (1 of 3 - 3-dose series) [facility] Start: 1973 HIV screening HIV Screening [facility] Start: 1973 Lipid panel Lipid Panel [facility] Start: 1973 Screening for malignant neoplasm of colon [facility] Start: 1973 Thyroid stimulating hormone measurement TSH Level [facility] End: 2025 DBT Breast - bilateral screening JASPER SCREENING [facility] Routine Encounter for gynecological examination (general) (routine) without abnormal findings Encounter for screening mammogram for breast cancer 1 Occurrences starting 04/14/2024 until 2025 [facility] Work Phone: Comment on above: 1 Occurrences starting 04/14/2024 until 2025 DBT Breast - bilater al screening JASPER SCREENING [facility] Radiology Routine Encounter for gynecological examination (general) (routine) without abnormal findings Encounter for screening mammogram for breast cancer 04/15/2024 8:01 AM EST [facility] Work Phone: End: 06-03-2025 EGD BARIATRIC EGD BARIATRIC Endoscopy Routine Obesity, Class I, BMI 30-34.9 Type 2 diabetes mellitus without complication, without long-term current use of insulin (HCC) 1 Occurrences starting 06/03/2024 until 06/03/2025 [facility] Work Phone: Comment on above: 1 Occurrences starting 06/03/2024 until 06/03/2025 PAP TEST PAP TEST Lab Nilsa treviño Encounter for gynecological examination (general) (routine) without abnormal findings Screening for cervical cancer Encounter for screening for human papillomavirus (HPV) 04/14/2024 12:12 PM EST [facility] Patient Education [facility] Work Phone: Patient referral [facility] Work Phone: Payers Date Payer Category Payer Self-pay [id number] 2022 Medicaid HMO [employer] [id number] 2019 Medicaid [id number] 2013 Unknown [facility] O HIOCOMP [id number] 2013-Present [phone] [address] [place] [address] [facility] [id number] 1973 Unknown [id number] 2.16.840.1.796374.3.579.2.598 1973 Unknown [id number] 2.16.840.1.773907.3.579.2.598 1973 Unknown [id number] 2.16.840.1.850448.3.579.2.598 1973 Unknown [id number] 2.16.840.1.317255.3.579.2.598 1973 Unknown [id number] 2.16.840.1.676605.3.579.2.598 1973 Unknown [id number] 2.16.840.1.383561.3.579.2.627 1973 Unknown [id number] 2.16.840.1.515446.3.579.2.627 1973 Unknown [id number] 2.16.840.1.314352.3.579.2.627 1973 Unknown [id number] 2.16.840.1.531304.3.579.2.651 1959 Unknown [id number] 1959 Unknown [id number] Unknown [id number] 2.16.840.1.033782.3.579.2.598 Unknown [id number] 2.16.840.1.702493.3.579.2.462 Unknown [id number] 2.16.840.1.221200.3.579.2.462 Unknown [id number] 2.16.840.1.118637.3.579.2.462 Unknown [id number] 2.16.840.1.356076.3.579.2.462 Unknown [id number] 2.16.840.1.931146.3.579.2.462 Unknown [id number] 2.16.840.1.353267.3.579.2.462 Unknown [id number] 2.16.840.1.980602.3.579.2.462 Unknown [id number] 2.16.840.1.912890.3.579.2.462 Unknown [id number] 2.16.840.1.650167.3.579.2.462 Unknown [id number] 2.16.840.1.322431.3.579.2.462 Social History Date Type Detail Facility Start: 03-31-2021 Light tobacco smoker (finding) [facility] Heavy tobacco sm oker (finding) [facility] Start: 1975 Sex Assigned At Female A [facility] Start: 11-06-2021 End: 08-23-2023 Tobacco smoking status [facility] Unknown if ever smoked [facility] Start: 04-24-2015 Rare [facility] Start: 04-24-2015 None [facility] Start: 04-24-2015 With Family [facility] Start: 12-16-2020 End: 08-24-2022 Tobacco smoking status AKIS Ex-smoker [facility] Start: 10-11-1997 End: 11-15-2020 History of tobacco use Current smoker [facility] Start: 10-11-1997 End: 11-15-2020 History of tobacco use Cigarette Smoker [facility] Start: 12-16-2020 End: 07-18-2023 Cigarettes smoked current (pack per day) - Reported 1 [facility] Start: 12-16-2020 End: 04-14-2024 Tobacco use and exposure Smokeless tobacco non-user [facility] Start: 02-02-2021 End: 05-27-2024 Alcohol intake Current non-drinker of alcohol (finding) [facility] Start: 1975 Sex Assigned At Not on file [facility] Start: 08-24-2022 Tobacco use and exposure Former smokeless tobacco user [facility] Start: 10-25-2022 End: 07-18-2023 Alcohol intake Ex-drinker (finding) [facility] Start: 10-25-2022 End: 07-18-2023 Tobacco use panel [facility] Start: 10-15-2022 End: 10-25-2022 Exposure to SARS-CoV-2 (event) Not sure [facility] Start: 01-08-2023 Gender identity Identifies as female gender (finding) [facility] Start: 01-08-2023 Sexual orientation Heterosexual (fin ding) [facility] National Score (1-100), lower number is lower risk 46 [facility] Start: 04-14-2024 End: 07-07-2024 Tobacco smoking status NHIS Smokes tobacco daily [facility] Start: 08-01-2022 Sex Female (finding) [facility] NEGATED: Highlighted row [facility] Medical Equipment Procedure Code Equipment Code Equipment Origin al Text Equipment Identifier Dates Pen Needle, Diab etic (Bd Ultra-Fine Pennie Pen Needle) 32 gauge x 5/32 needle Start: 11-10-2020 Pen Needle, Diab etic (Bd Ultra-Fine Pennie Pen Needle) 32 gauge x 5/32 needle Start: 06-17-2020 End: 11-10-2020 Pen Needle, Diab etic (Bd Ultra-Fine Pennie Pen Needle) 32 gauge x 5/32 needle Start: 11-10-2020 Pen Needle, Diab etic (Bd Ultra-Fine Pennie Pen Needle) 32 gauge x 5/32 needle Start: 06-17-2020 End: 11-10-2020 Pen Needle, Diab etic (Bd Ultra-Fine Pennie Pen Needle) 32 gauge x 5/32 needle Start: 11-10-2020 Pen Needle, Diab etic (Bd Ultra-Fine Pennie Pen Needle) 32 gauge x 5/32 needle Start: 06-17-2020 End: 11-10-2020 Pen Needle, Diab etic (Bd Ultra-Fine Pennie Pen Needle) 32 gauge x 5/32 needle Start: 11-10-2020 Pen Needle, Diab etic (Bd Ultra-Fine Pennie Pen Needle) 32 gauge x 5/32 needle Start: 06-17-2020 End: 11-10-2020 Pen Needle, Diab etic (Bd Ultra-Fine Pennie Pen Needle) 32 gauge x 5/32 needle Start: 11-10-2020 Pen Needle, Diab etic (Bd Ultra-Fine Pennie Pen Needle) 32 gauge x 5/32 needle Start: 06-17-2020 End: 11-10-2020 Pen Needle, Diab etic (Bd Ultra-Fine Pennie Pen Needle) 32 gauge x 5/32 needle Start: 11-10-2020 Pen Needle, Diab etic (Bd Ultra-Fine Pennie Pen Needle) 32 gauge x 5/32 needle Start: 06-17-2020 End: 11-10-2020 Pen Needle, Diab etic (Bd Ultra-Fine Pennie Pen Needle) 32 gauge x 5/32 needle Start: 11-10-2020 Pen Needle, Diab etic (Bd Ultra-Fine Pennie Pen Needle) 32 gauge x 5/32 needle Start: 06-17-2020 End: 11-10-2020 Pen Needle, Diab etic (Bd Ultra-Fine Pennie Pen Needle) 32 gauge x 5/32 needle Start: 11-10-2020 Pen Needle, Diab etic (Bd Ultra-Fine Pennie Pen Needle) 32 gauge x 5/32 needle Start: 06-17-2020 End: 11-10-2020 Pen Needle, Diab etic (Bd Ultra-Fine Pennie Pen Needle) 32 gauge x 5/32 needle Start: 11-10-2020 Pen Needle, Diab etic (Bd Ultra-Fine Pennie Pen Needle) 32 gauge x 5/32 needle Start: 06-17-2020 End: 11-10-2020 Pen Needle, Diab etic (Bd Ultra-Fine Pennie Pen Needle) 32 gauge x 5/32 needle Start: 11-10-2020 Pen Needle, Diab etic (Bd Ultra-Fine Pennie Pen Needle) 32 gauge x 5/32 needle Start: 06-17-2020 End: 11-10-2020 Pen Needle, Diab etic (Bd Ultra-Fine Pennie Pen Needle) 32 gauge x 5/32 needle Start: 11-10-2020 Pen Needle, Diab etic (Bd Ultra-Fine Pennie Pen Needle) 32 gauge x 5/32 needle Start: 06-17-2020 End: 11-10-2020 Pen Needle, Diab etic (Bd Ultra-Fine Pennie Pen Needle) 32 gauge x 5/32 needle Start: 11-10-2020 Pen Needle, Diab etic (Bd Ultra-Fine Pennie Pen Needle) 32 gauge x 5/32 needle Start: 06-17-2020 End: 11-10-2020 Pen Needle, Diab etic (Bd Ultra-Fine Pennie Pen Needle) 32 gauge x 5/32 needle Start: 11-10-2020 Pen Needle, Diab etic (Bd Ultra-Fine Pennie Pen Needle) 32 gauge x 5/32 needle Start: 06-17-2020 End: 11-10-2020 Pen Needle, Diab etic (Bd Ultra-Fine Pennie Pen Needle) 32 gauge x 5/32 needle Start: 11-10-2020 Pen Needle, Diab etic (Bd Ultra-Fine Pennie Pen Needle) 32 gauge x 5/32 needle Start: 06-17-2020 End: 11-10-2020 Pen Needle, Diab etic (Bd Ultra-Fine Pennie Pen Needle) 32 gauge x 5/32 needle Start: 11-10-2020 Pen Needle, Diab etic (Bd Ultra-Fine Pennie Pen Needle) 32 gauge x 5/32 needle Start: 06-17-2020 End: 11-10-2020 Pen Needle, Diab etic (Bd Ultra-Fine Pennie Pen Needle) 32 gauge x 5/32 needle Start: 11-10-2020 Pen Needle, Diab etic (Bd Ultra-Fine Pennie Pen Needle) 32 gauge x 5/32 needle Start: 06-17-2020 End: 11-10-2020 Pen Needle, Diab etic (Bd Ultra-Fine Pennie Pen Needle) 32 gauge x 5/32 needle Start: 06-17-2020 End: 11-10-2020 Pen Needle, Diab etic (Bd Ultra-Fine Pennie Pen Needle) 32 gauge x 5/32 needle Start: 11-10-2020 End: 12-24-2023 Pen Needle, Diab etic (Bd Ultra-Fine Pennie Pen Needle) 32 gauge x 5/32 needle Start: 06-17-2020 End: 11-10-2020 Pen Needle, Diab etic (Bd Ultra-Fine Pennie Pen Needle) 32 gauge x 5/32 needle Start: 11-10-2020 End: 12-24-2023 Goals Date Patient Goal Desired Activity /State Functional Status Date Assessment Result Facility 08-08-2023 Functional Status Independent [facility] 08-08-2023 Functional Status Independent [facility] 02-24-2023 Functional Status Independent [facility] 02-24-2023 Functional Status Ambulation in [place], Ambulation in Room [facility] 05-31-2022 Functional Status Ambulating in jeffery, Ambulating in room, Awake, Bathroom privileges [facility] 05-31-2022 Functional Status Standard Safet y ID band on, Allergy Band on, Call device within reach, Bed in low position, Wheels locked, Upper/Half-Length side-rails up, personal items within reach [facility] Mental Status Date Assessment Result Facility 08-08-2023 Mental Status Orientation Oriented x 4 [facility] 08-08-[address] [facility] 02-24-2023 Mental Status Orientation Oriented x 4 [facility] 02-24-[address] [facility] 08-02-2022 Cognitive function Voice/Name [facility] Work Phone: 05-31-2022 Mental Status Orientation Oriented x 4 [facility] 05-31-[address] [facility] 03-02-2022 Cognitive function Voice/Name [facility] Work Phone: 12-02-2021 Cognitive function Level Of Cons ciousness Awake;Alert;Appropriate;Follow s Commands [facility] Work Phone: Clinical Notes 02-02-2021 to 09-10-2024 Telephone Encounter - Trey Villalobos RN - 09/10/2024 3:18 PM EDTTelephone Encounter - rTey Villalobos RN - 09/10/2024 3:18 PM EDT Note Date & Type Note Facility 09-10-2024 Telephone encount er Note Spoke with patient regarding the following information: Procedure is scheduled for SundaySeptember 17 at 1pm. Please arrive by 12pm to check in at the Q3 endoscopy unit. Gastroenterology is located at desk [address] in the [facility] ([facility]/[address] [place] [address]). Park in the [address] or use [facility]. Visit [email or web address] for up-to-date visitor restrictions and mask requirements. Construction alerts and updates are available online at [email or web address] You will be receiving IV (intravenous) sedation. Your ride MUST be present upon arrival to and MUST remain on the [facility] for the duration of the procedure or your procedure will be cancelled. You MUST have a responsible person come with you and either drive you home or be with you while riding in public transportation (bus or taxi). You are NOT allowed to drive or leave the Endoscopy Center alone. Your procedure will be cancelled if your ride cannot be confirmed. Public transportation by yourself is not allowed. Most procedures take approximately 45-60 minutes. You and your responsible person must remain in the Endoscopy Center and be reachable by phone until you recover from your sedation. Most patients are discharged 1-2 hours after the procedure is completed. If you are taking Coumadin (Warfarin), Clopidogrel (Plavix), Aspirin, Ticlid, Aggrenox or other blood thinners, you must speak with your prescribing physician or the specialist performing the Endoscopy procedure at least 2 weeks PRIOR to your scheduled appointment. If you are taking Insulin , long-acting Insulin (NPH), Lantus, Humalog, 70/30 Insulin, or any other medication to lower your blood sugar, contact your prescribing physician for instructions PRIOR to your procedure If you are taking medication for weight loss, contact your prescribing physician at least 1 week PRIOR to your procedure If you are taking medication for High Blood Pressure, Seizures, Asthma, Thyroid Disease, Irregular Heartbeat or taking Prednisone, you must take your medication on the morning of your procedure with a sip of water. If you take potent water pills, such as Lasix or Metolozone, do NOT take these the day before your procedure. Resume taking your water pill after the Endoscopy has been completed. If you take Iron pills, stop taking them 7 days PRIOR to the procedure. If you are taking non-steroidal anti-inflammatory drugs, such as Ibuprofen, (Motrin, Aleve), stop taking them 5 day PRIOR to the procedure. For all procedures including colonoscopy, EGD, EUS, ERCP, or enteroscopy, do NOT eat or drink ANYTHING after midnight unless otherwise indicated in your bowel prep instructions. If you have any questions, please call . If you need to cancel or reschedule your Endoscopy procedure, please call , option 1. [facility] 09-10-2024 Miscellaneous Notes Formattin g of this note might be different from the original. Spoke with patient regarding the following information: Procedure is scheduled for SundaySeptember 17 at 1pm. Please arrive by 12pm to check in at the endoscopy unit. Gastroenterology is located at desk [address] in the [facility] ([facility]/[address] [place] [address]). Park in the [facility] [address] Parking [address]age or use [facility] Parking. Visit [email or web address] for up-to-date visitor restrictions and mask requirements. Construction alerts and updates are available online at [email or web address] You will be receiving IV (intravenous) sedation. Your ride MUST be present upon arrival to and MUST remain on the [facility] Main [place] for the duration of the procedure or your procedure will be cancelled. You MUST have a responsible person come with you and either drive you home or be with you while riding in public transportation (bus or taxi). You are NOT allowed to drive or leave the Endoscopy Center alone. Your procedure will be cancelled if your ride cannot be confirmed. Public transportation by yourself is not allowed. Most procedures take approximately 45-60 minutes. You and your responsible person must remain in the Endoscopy Center and be reachable by phone until you recover from your sedation. Most patients are discharged 1-2 hours after the procedure is completed. If you are taking Coumadin (Warfarin), Clopidogrel (Plavix), Aspirin, Ticlid, Aggrenox or other blood thinners, you must speak with your prescribing physician or the specialist performing the Endoscopy procedure at least 2 weeks PRIOR to your scheduled appointment. If you are taking Insulin , long-acting Insulin (NPH), Lantus, Humalog, 70/30 Insulin, or any other medication to lower your blood sugar, contact your prescribing physician for instructions PRIOR to your procedure If you are taking medication for weight loss, contact your prescribing physician at least 1 week PRIOR to your procedure If you are taking medication for High Blood Pressure, Seizures, Asthma, Thyroid Disease, Irregular Heartbeat or taking Prednisone, you must take your medication on the morning of your procedure with a sip of water. If you take potent water pills, such as Lasix or Metolozone, do NOT take these the day before your procedure. Resume taking your water pill after the Endoscopy has been completed. If you take Iron pills, stop taking them 7 days PRIOR to the procedure. If you are taking non-steroidal anti-inflammatory drugs, such as Ibuprofen, (Motrin, Aleve), stop taking them 5 day PRIOR to the procedure. For all procedures including colonoscopy, EGD, EUS, ERCP, or enteroscopy, do NOT eat or drink ANYTHING after midnight unless otherwise indicated in your bowel prep instructions. If you have any questions, please call . If you need to cancel or reschedule your Endoscopy procedure, please call , option 1. 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 Add in snack mid day: fruit with protein source. Aim for at least 1200 calories daily. [facility]25 NoteHNO ID: [id number] Author: TRAN SAUNDERS RD Service: ? Author Type: Registered Dietitian Type: Progress Notes Filed: 07/07/2024 08:34 Note Text: [facility] Nutrition Therapy: Virtual Consult - Re-assessment I have communicated my name and active licensure. The patient?s identity and physical location were verified at the time of this visit. Either the patient or their legal marketing representative has been informed of the risks and benefits of -- and alternatives to -- treatment through a remote evaluation and consents to proceed with the evaluation remotely. Nutrition Diagnosis: Overweight/obesity, related to, food/nutrition - related knowledge deficit, as evidenced by BMI above normative standard for age and gender RECOMMENDED MALNUTRITION DIAGNOSIS: NO MALNUTRITION IDENTIFIED NUTRITION CARE PLAN: Nutrition Intervention 07/07/2024: Modify type and amount of food at meals and snacks Add in complex carbohydrate with lunch and dinner. Add in snack mid day: fruit with protein source. Aim for at least 1200 calories daily. Nutrition Monitoring AND Evaluation: 1-2# weight loss per week Need for Follow up: 6-8 weeks (Call [phone] option 3) PROGRESS: Interval History: Nutrition follow up in preparation for GI/bariatric endoscopy procedure, interested in ESG. Patient continues on Mounjaro with her PCP. Since last encounter patient has lost 1#. Diet recall reveals consistent meal pattern with no skipped meals. Diet continues to appear to meet protein needs with use of protein shake as meal replacement and protein centric meals. Patient reports tracking around 1000 calories per day and getting at least 70-80 grams of protein. Low caloric intake is likely contributing to weight loss difficulty. Suggest increasing calories. Patient reports her it trainer has suggested the same. Will start adding in complex carbohydrate at meals, along with a snack to help meet calorie goal. Patient also complaining of dropping low at the gym. Feels it is the Mounjaro, but also likely not eating enough complex carbohydrate. Fluids sufficient in hydrating beverages. Exercise meeting recommended 150-200 minutes per week with mix of strength and cardio. After session today, patient able to verbalize protein/fluid/exercise goals, recommendations for vitamin/minerals, use of protein shakes during post-procedure liquid diet. Also able to demonstrate post-procedure diet advancement/portion control using food models. Anticipate post-procedure compliance. Anthropometrics Weight History Weight Change Height 5 ft 6 in Current Weight BMI 207 lbs 33.41 Initial Program Weight BMI 208 lbs 33.57 -1 lbs Procedure Weight BMI N/A N/A Last Visit Weight 208 lbs -1 lbs Non-Scale Progress (1 is low and 10 is high) 1 2 3 4 5 6 7 8 9 10 Energy [] [] [] [] [x] [] [] [] [] [] Sleep [] [] [] [] [x] [] [] [] [] [] Looser Fitting Clothing (1 is tight and 10 is baggy) [] [] [] [] [] [] [] [] [] [x] wears baggy clothes already Daily Movement [] [] [] [] [] [] [x] [] [] [] Physical Fitness [] [] [] [x] [] [] [] [] [] [] Appetite/Hunger (1 is low hunger/ 10 is high hunger) [x] [] [] [] [] [] [] [] [] [] Cravings (1 is no cravings/ 10 is frequent cravings) [x] [x] [] [] [] [] [] [] [] [] Nutrition Intervention 06/03/2024: Modify type and amount of food at meals and snacks 1. Do not skip meals. 2. Use protein shake 1x per day to replace any skipped meals or for breakfast -Aim for 15-30 grams protein and 5 grams or less of total sugar -Premier Protein; Slim Fast High Protein; Boost Glucose Control; Arriaza Advantage; OWYN; Orgain; Fairlife High Protein; Fairlife Core Power; Muscle Milk 3. Use the Healthy Plate Method of portion control for lunch and dinner 4 oz lean meat (fish, chicken, pork tenderloin, turkey, seafood, eggs/cheese) 1/2 plate non starchy vegetables (salad, greens, cabbage, spinach, brussels sprouts, broccoli, carrots, celery, peppers, green beans, cauliflower) 1 cup starch/starchy vegetables (corn, peas, beans, winter squash, sweet potato, brown rice, whole grain pasta, whole grain bread products, quinoa) 4. Physical activity: aim for 150 minutes of exercise per week with mix of strength and cardio. 5. Drink 64 ounces per day water. Fluids should follow these guidelines: No carbonation, no caffeine, no calories, no alcohol. Protein needs: 85 gm per day Calories per day: 5460-9478 Actions to implement interventions: see assessment Diet History: Breakfast - [employer] Core Power Elite. 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 The patient s identity and physical location wereverified at the time of this visit. Either the patient or their legal marketing representative has been informed of the risks and benefits of -- and alternatives to -- treatment through a remote evaluation andconsents to proceed with the evaluation remotely. Nutrition Diagnosis: Overweight/obesity, related to, food/nutrition - related knowledge deficit, asevidenced by BMI above normative standard for age and gender RECOMMENDED MALNUTRITION DIAGNOSIS: NO MALNUTRITION IDENTIFIED NUTRITION CARE PLAN: Nutrition Intervention 07/07/2024: Modify type and amount of food at meals and snacks Add in complex carbohydrate with lunch and dinner. Add in snack mid day: fruit with protein source. Aim for at least 1200 calories daily. Nutrition Monitoring & Evaluation: 1-2# weight loss per week Need for Follow up: 6-8 weeks (Call [phone] option 3) PROGRESS: Interval History: Nutrition follow up in preparation for GI/bariatric endoscopy procedure, interested in ESG. Patient continues on Mounjaro with her PCP. Since last encounter patient has lost 1#. Diet recall reveals consistent meal pattern with no skipped meals. Diet continues to appear to meet protein needs with use of protein shake as meal replacement and protein centric meals. Patient reports tracking around 1000 calories per day and getting at least 70-80 grams of protein. Low caloric intake is likely contributing to weight loss difficulty. Suggest increasing calories. Patient reports hertrainer has suggested the same. Will start adding in complex carbohydrate at meals, along with a snack to help meet calorie goal. Patient also complaining of dropping low at the gym. Feels it is the Mounjaro, but also likely not eating enough complex carbohydrate. Fluids sufficient in hydrating beverages. Exercise meeting recommended 150-200 minutes per week with mix of strength and cardio. After session today, patient able to verbalize protein/fluid/exercise goals, recommendations for vitamin/minerals, use of protein shakes during post- procedure liquid diet. Also able to demonstrate post-procedure diet advancement/portion control using food models. Anticipate post-procedure compliance. Anthropometrics Weight History Weight Change Height 5 ft 6 in Current Weight BMI 207 lbs 33.41 Initial Program Weight BMI 208 lbs 33.57 -1 lbs Procedure Weight BMI N/A N/A Last Visit Weight 208 lbs -1 lbs Non-Scale Progress (1 is low and 10 is high) 1 2 3 4 5 6 7 8 9 10 Energy [] [] [] [] [x] [] [] [] [] [] Sleep [] [] [] [] [x] [] [] [] [] [] Looser Fitting Clothing (1 is tight and 10 is baggy) [] [] [] [] [] [] [] [] [] [x] wears baggy clothes already Daily Movement [] [] [] [] [] [] [x] [] [] [] Physical Fitness [] [] [] [x] [] [] [] [] [] [] Appetite/Hunger (1 is low hunger/ 10 is high hunger) [x] [] [] [] [] [] [] [] [] [] Cravings (1 is no cravings/ 10 is frequent cravings) [x] [x] [] [] [] [] [] [] [] [] Nutrition Intervention 06/03/2024: Modify type and amount of food at meals and snacks 1. Do not skip meals. 2. Use protein shake 1x per day to replace any skipped meals or for breakfast -Aim for 15-30 grams protein and 5 grams or less of total sugar -Premier Protein; Slim Fast High Protein; Boost Glucose Control; Arriaza Advantage; OWYN; Orgain; Fairlife High Protein; Fairlife Core Power; Muscle Milk 3. Use the Healthy Plate Method of portion control for lunch and dinner 4 oz lean meat (fish, chicken, pork tenderloin, turkey, seafood, eggs/cheese) 1/2 plate non starchy vegetables (salad, greens, cabbage, spinach, brussels sprouts, broccoli, carrots, celery, peppers, green beans, cauliflower) 1 cup starch/starchy vegetables (corn, peas, beans, winter squash, sweet potato, brown rice, whole grain pasta, whole grain bread products, quinoa) 4. Physical activity: aim for 150 minutes of exercise per week with mix of strength and cardio. 5. Drink 64 ounces per day water. Fluids should follow these guidelines: No carbonation, no caffeine, no calories, no alcohol. Protein needs: 85 gm per day Calories per day: 9614-0862 Actions to implement interventions: see assessment Diet History: Breakfast - [employer] Core Power Elite. 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 Anthropometrics: Height: Last 1 Encounter Ht Readings: Date: Ht: 06/03/2024 167.6 cm (5' 6) Weight: Last 1 Encounter Wt Readings: Date: Wt: 06/03/2024 94.3 kg (208 lb) Body mass index is 33.57 kg/m . Resting Metabolic Rate: 1578 Malnutrition Screening Significant unintentional weight loss? No Eating less than 75% of usual intake for more than 2 weeks? No Potential Signs of Inflammation: no identifiable sources Nutritional status: Education Materials Provided: None this visit READINESS TO LEARN Cognitive ability: Alert and oriented Motivation to learn: Interested Family support: Unable to assess - Family not present Instruction provided to: Patient Patient learns best by: Multiple Methods Factors affecting learning: None Physical limitations affecting learning: None Likelihood of Adherence: Moderate Referred by: Dr. Rodrigues MNT Billing Type: Re-assess/15 min 1 unit SIGNATURE: Tran Saunders RD PATIENT NAME: Ama Avelar DATE: 07/07/2024 TIME: 7:59 AM PAGER: documented in this encounterTri[facility] Instructions* Patient Instructions* Tran Saunders RD - 06/05/2024 10:41 AM EST Nutrition Intervention 06/03/2024: Modify type and amount of food at meals and snacks 1. Do not skip meals. 2. Use protein shake 1x per day to replace any skipped meals or for breakfast -Aim for 15-30 grams protein and 5 grams or less of total sugar -Premier Protein; Slim Fast High Protein; Boost Glucose Control; Arriaza Advantage; OWYN; Orgain; Fairlife High Protein; Fairlife Core Power; Muscle Milk 3. Use the Healthy Plate Method of portion control for lunch and dinner 4 oz lean meat (fish, chicken, pork tenderloin, turkey, seafood, eggs/cheese) 1/2 plate non starchy vegetables (salad, greens, cabbage, spinach, brussels sprouts, broccoli, carrots, celery, peppers, green beans, cauliflower) 1 cup starch/starchy vegetables (corn, peas, beans, winter squash, sweet potato, brown rice, whole grain pasta, whole grain bread products, quinoa) 4. Physical activity: aim for 150 minutes of exercise per week with mix of strength and cardio. 5. Drink 64 ounces per day water. Fluids should follow these guidelines: No carbonation, no caffeine, no calories, no alcohol. Protein needs: 85 gm per day Calories per day: 3231-2571 documented in this encounterTri[facility]02-18-[facility]25 History of Present illness Narrative* Jessica Rodrigues MD - 06/03/2024 2:30 PM EST Images from the original note were not included. Bari Desai DO [address] [place] [id number] GI/Bariatric Endoscopy Clinic Visit Gastroenterology, Hepatology, and Nutrition Department ?[facility] ([facility] ? 06/03/2024 ? The patient encounter is a virtual/telephone visit today, 06/03/2024, in lieu of an office visit dueto the current COVID-19 pandemic crisis and need for social distancing. Reason for Visit: Obesity class I, weight management Patient is: New patient Location of Provider: Hospital Location of Patient: Home Consent for virtual care, including informing the patient that insurance will be billed, and that in-person care is available in case of emergencies or as needed otherwise, was discussed at the time of scheduling. Dear Bari Desai DO, ? I had the pleasure of seeing [facility] for Obesity class I, weight management Prior History: Ama Avelar has a history of obesity since adulthood. Comorbidities are: obesity class I, hiatal hernia, fatty liver disease, diabetes type 2, PCOS, migraines, hypothyroidism, hyperlipidemia, hypertension, nicotine use disorder, elevated LFTs, GERD, stomach ulcer, anxiety, diverticulosis, colitis, arthritis, cardiac arrhythmia, ?rare intestinal metaplasia (Goblet cell metaplasia) in 2022 in the setting of gastric ulcer? -->will repeat EGD and assess. - abdominoplasty and breast reduction in [address] Cheek at Worked with bariatric surgery/ weight management program through [facility] in 2023. Weight gain/regain and Obesity disease: The patient reports could eat several high caloric meals and beverages per day despite not feeling very hungry. Also not feeling satiety or full after eating several meals. Could have craving to eat throughout the day. This has resulted in weight gain/regain and worsening of obesity. Patient has tried to control the diet and be able to lose weight up to 20-30 lbs. Unfortunately, the patient would subsequently experience rebound weight regain following lifestyle modification interventions (diet + exercise). Patient has not tried medications and is not interested in weight loss medications and or bariatric surgery. Tried keto diet and exercise before, had lost 80 lbs and had also post this abdominoplasty. Taking now mounjaro and not helping Takes 7020-4697 calories per day and still not losing weight, high protein diet. Ama Avelar was seen by GI, bariatric specialities who recommended to lose weight and weight loss interventions. 24 hrs Diet recall: Wakes up to eat: denied Today's weight and BMI: Goal weight BMI < 27: 162.3 Goal weight BMI < 30: 180.3 Last 5 Encounter Wt Readings: Date: Wt: 05/28/2024 94.8 kg (209 lb) 05/26/2024 94.8 kg (209 lb) 01/16/2023 99.3 kg (219 lb) 02/02/2021 95.7 kg (211 lb) 12/16/2020 97.7 kg (215 lb 6.4 oz) Risk factors: Tobacco/ vaping/ Marijuana use: yes, half PPD EtOH intake: denied NSAIDs: denied H. Pylori: denied Family/ personal history of gastric cancer/ polyposis: denied Relevant Medications: Mounjaro 2.5 mg Ozempic previously - stopped due to GI side effects Past Medical History: PAST MEDICAL HISTORY Diagnosis Date Anaphylaxis due to hymenoptera venom 05/27/2024 Anxiety Colitis 05/27/2024 Gastritis 05/27/2024 HTN (hypertension) Hypothyroid Vasovagal syncope 05/27/2024 Past Surgical History: PAST SURGICAL HISTORY Procedure Laterality Date SECTION HX 10/2002 SECTION HX 12/16/2003 D AND C 01/2002 EXCISE EXCESS SKIN TISSUE,ABDOMEN 09/2021 also breast INCISION & DRAINAGE ABSCESS COMPLICATED/MULTIPLE 11/2010 Abd TUBAL LIGATION HX 12/16/2003 Medications: Current Outpatient Medications Medication Sig Dispense Refill tirzepatide (MOUNJARO) 2.5 mg/0.5 mL pen injector Inject 2.5 mg subcutaneously one time a week. butalb/acetaminophen/caffeine (FIORICET ORAL) Take by mouth as needed. levothyroxine (SYNTHROID) 112 mcg tablet Take 125 mcg by mouth once daily. Patient reported 125 mcg ALPRAZolam (XANAX) 1 mg tablet Take 1 mg by mouth as needed. cholecalciferol (VITAMIN D3) 5,000 unit tab Take 5,000 Units by mouth once daily. 2 diphenhydramine HCl (BENADRYL ALLERGY ORAL) Take 30 mL by mouth as needed (allergy). No current facility-administered medications for this visit. Allergies: ALLERGIES Allergen Reactions Adhesive Tape (Shaila* Itching Bee Venom Protein (* Anaphylaxis Yellow jacket Zofran [Ondansetron* Rash Prochlorperazine Mental Status Change, Other: See Comments Family History: No known colon cancer, polyps, IBD, celiac disease, pancreatic disease, or liver disease. FAMILY HISTORY Problem Relation Age of Onset Hypertension Mother Diabetes Father Heart Father Hypertension Father Diabetes Son type 1 ? Social History: Social History Tobacco Use Smoking status: Every Day Current packs/day: 0.00 Average packs/day: 1 pack/day for 23.1 years (23.1 ttl pk-yrs) Types: Cigarettes Start date: 10/11/1997 Last attempt to quit: 11/15/2020 Years since quittin.5 Smokeless tobacco: Never Vaping Use Vaping status: Never Used Substance Use Topics Alcohol use: No Drug use: No Tobacco: Tobacco Use: Types: Cigarettes Alcohol: Alcohol Use: No Illicits: Drug Use: No Review of Systems: Review of Systems Constitutional: no fevers, chills, night sweats, or weight loss Cardiovascular: no chest pain Pulmonary: no shortness of breath Eyes: no visual changes or eye irritation Musculoskeletal: no myalgias or arthralgias Skin: no new or changing skin lesions, rashes or pruritis 12 point ROS otherwise negative. Physical Examination: Vital Signs: There were no vitals taken for this visit. There is no height or weight on file to calculate BMI. Physical Exam virtual/videocall encounter: Patient reported height 208 lbs General - Normal, healthy, cooperative, in no acute distress Able to interact verbally by video conference Psych - ORIENTATION: normal to time place, person and situation Mood/Affect: AFFECT AND MOOD: Normal Head/Neuro - Normal size and shape Facial appearance normal Pulmonary - respiratory effort normal Cardiovascular - patient describes extremities normal, warm, no cyanosis,no clubbing and no edema Abdominal - Flat, Visible protrusions or hernias: No Incisions/scars: None, Areas of pain/tenderness: denies Skin - abnormal lesions not visualized Motor - patient seen sitting with Normal appearing strength and coordination ? Laboratory Data: No results found for: PT, PTCTRL, PTPOC, INR, PTT No results found for: B12 No results found for: TSH No results found for: WBC, RBC, HB, HCT, MCV, MCH, MCHC, RDWCV, PLT, MPV No results found for: K, NA, MG, CREAT, BUN, GLUC, INR, TSH, PBNP, DDMER No results found for: GLUC, BUN, CREAT, NA, K, CHLOR, CO2, TPROT, ALB, CA, ALKPHOS, TBILI, AST, ALT No results found for: GLUC, CREAT, K, AST, ALT, HBA1C, CHOL, HDL] No results found for: LDL, TG, UALBCR] Imaging: CT A/P 10/17/2022: GES 09/19/2022: Endoscopy: EGD 08/02/2022: Assessment and Recommendations: ??49 year old female with history as per HPI, Comorbidities are: obesity class I, hiatal hernia, fatty liver disease, diabetes type 2, PCOS, migraines, hypothyroidism, hyperlipidemia, hypertension, nicotine use disorder, elevated LFTs, GERD, stomach ulcer, anxiety, diverticulosis, colitis, arthritis, cardiac arrhythmia, ?rare intestinal metaplasia (Goblet cell metaplasia) in 2022 in the setting of gastric ulcer? -->will repeat EGD and assess.presenting to GI/Bariatric Endoscopy clinic for evaluation of Obesity class I, weight management . We discussed the 4 options for management of obesity including lifestyle intervention, pharmacotherapy, endoscopic bariatric and metabolic therapies (EBMTs), and bariatric surgery. We discussed all FDA-approved medications for weight loss including Phentermine (brands: Adipex-P, Lomaira, Fastin, Ionamin), Topamax (Trokendi XR, Qudexy XR), Qsymia (phentermine/topamax), Saxenda for weight loss or at lower dose Victoza for DM2 (injectable liraglutide), Contrave (naltrexone.bupropion) and Xenical (orlistat). The benefits and risks of each medications were discussed with the patient. We then discussed EBMTs. We explained that currently there are 3 types of EBMTs that are FDA-approved in the [place]) Intragastric balloon (IGB) which is associated with approximately 10% of total weight loss (TWL). 2) Endoscopic sleeve gastroplasty (ESG), which can be performed via suturing or plication, which is associated with approximately 15% to 20% TWL. 3) Aspiration therapy (AT) which is associated with approximately 15% to 18% TWL. Risks of each EBMTs were also discussed with the patient in details. Lastly, we also discussed briefly about Bariatric Surgery such as laparoscopic sleeve gastrectomy [id number] gastric bypass, which patient currently is not eligible for given class II obesity without a comorbidity. Patient would like to proceed with ESG + AOM. We also discussed the possible causes of weight gain leading to obesity class I with related comorbidities, including inappropriate diet, lack of sufficient exercise. We discussed a solid calorie diet in great detail and referred her to our GI/Bariatric Dietitian. Patient will meet bariatric process controller and discuss lifestyle modification, diet protocol in detail prior to weight loss procedure. We have recommended exercise at least 4-5 times weekly. Finally, to evaluate patient's anatomy and if patient decides to proceed with ESG we will schedule an EGD (if not already done) and/or Upper GI series to assess the anatomy and pre- op labs/testing. We discussed the risks and benefits of our endoscopic therapies, including but not limited to risk of ulceration, stenosis, perforation, leaks, infections, bleeding, pain. Patient understand that it may require a post-procedure hospital admission. Wereviewed the post procedure diet, which includes 45 days of liquid diet/on protein shakes. The patient is aware that all medications need to be changed (by primary doctor or prescriber) to a liquid or crushable prior to the procedure and for 6 weeks post-procedure. Patient understands the proceduredoes require insurance preapproval (which can take several months and it is not guaranteed) and post-procedure long- term/longitudinal follow up in our multidisciplinary weight management program/clinics. All questions were answered and patient expressed verbal understanding and agreement with plan. Recommendations: - EGD bariatric ?rare intestinal metaplasia (Goblet cell metaplasia) in 2022 in the setting of gastric ulcer? -->will repeat EGD and assess. - fu with dietitian and pyschologist - PLEASE STOP Smoking. Needs to quit smoking prior to ESG. - If above all good, normal EGD biopsies and cleared by our MDT team, then we can proceed with ESG +/- AOM. - FU with or Karly Oliva after above. VIRTUAL VISIT I spent a total of 55 minutes during this real-time, interactive virtual clinical encounter, which was conducted virtually using HIPAA compliant videoconferencing technology. Greater than 50% of the time spent was devoted to counseling and coordinating care including review of records, pertinent lab data and studies, as well as discussing diagnostic evaluation and work up, planned therapeutic interventions and future disposition of care. This includes any additional research needed to obtain further information in formulating the plan of care of this patient. This includes counseling the patient about her disease and diagnosis, specifically: obesity We reviewed coronavirus precautions including avoiding public places, maintaining 6 feet of distance from other persons when in public, no sick contacts, and fastidious handwashing. Thank you for allowing me to participate in the care of your patient. If you have any questions or concerns, please feel free to contact me. Jose Rodrigues MD Msc 06/03/2024 2:30 PM documented in this encounterTri[facility]02-18-[facility]25 NoteHNO ID: [id number] Author: Jessica RODRIGUES MD Service: ? Author Type: Physician Type: Progress Notes Filed: 06/03/2024 14:49 Note Text: Bari Desai DO [address] [facility] [id number] GI/Bariatric Endoscopy Clinic Visit Gastroenterology, Hepatology, and Nutrition Department ?[facility] ([facility]) ? 06/03/2024 ? The patient encounter is a virtual/telephone visit today, 06/03/2024, in lieu of an office visit due to the current COVID-19 pandemic crisis and need for social distancing. Reason for Visit: Obesity class I, weight management Patient is: New patient Location of Provider: Hospital Location of Patient: Home Consent for virtual care, including informing the patient that insurance will be billed, and that in-person care is available in case of emergencies or as needed otherwise, was discussed at the time of scheduling. Dear Bari Desai DO, ? I had the pleasure of seeing Ama Avelar [facility] for Obesity class I, weight management Prior History: Ama Avelar has a history of obesity since adulthood. Comorbidities are: obesity class I, hiatal hernia, fatty liver disease, diabetes type 2, PCOS, migraines, hypothyroidism, hyperlipidemia, hypertension, nicotine use disorder, elevated LFTs, GERD, stomach ulcer, anxiety, diverticulosis, colitis, arthritis, cardiac arrhythmia, ?rare intestinal metaplasia (Goblet cell metaplasia) in 2022 in the setting of gastric ulcer? -->will repeat EGD and assess. - abdominoplasty and breast reduction in [address] Cheek at Worked with bariatric surgery/ weight management program through [facility] in 2023. Weight gain/regain and Obesity disease: The patient reports could eat several high caloric meals and beverages per day despite not feeling very hungry. Also not feeling satiety or full after eating several meals. Could have craving to eat throughout the day. This has resulted in weight gain/regain and worsening of obesity. Patient has tried to control the diet and be able to lose weight up to 20-30 lbs. Unfortunately, the patient would subsequently experience rebound weight regain following lifestyle modification interventions (diet + exercise). Patient has not tried medications and is not interested in weight loss medications and or bariatric surgery. Tried keto diet and exercise before, had lost 80 lbs and had also post this abdominoplasty. Taking now mounjaro and not helping Takes 0075-1276 calories per day and still not losing weight, high protein diet. Ama Avelar was seen by GI, bariatric specialities who recommended to lose weight and weight loss interventions. 24 hrs Diet recall: Wakes up to eat: denied Today's weight and BMI: Goal weight BMI < 27: 162.3 Goal weight BMI < 30: 180.3 Last 5 Encounter Wt Readings: Date: Wt: 05/28/2024 94.8 kg (209 lb) 05/26/2024 94.8 kg (209 lb) 01/16/2023 99.3 kg (219 lb) 02/02/2021 95.7 kg (211 lb) 12/16/2020 97.7 kg (215 lb 6.4 oz) Risk factors: Tobacco/ vaping/ Marijuana use: yes, half PPD EtOH intake: denied NSAIDs: denied H. Pylori: denied Family/ personal history of gastric cancer/ polyposis: denied Relevant Medications: Mounjaro 2.5 mg Ozempic previously - stopped due to GI side effects Past Medical History: PAST MEDICAL HISTORY Diagnosis Date Anaphylaxis due to hymenoptera venom 05/27/2024 Anxiety Colitis 05/27/2024 Gastritis 05/27/2024 HTN (hypertension) Hypothyroid Vasovagal syncope 05/27/2024 Past Surgical History: PAST SURGICAL HISTORY Procedure Laterality Date SECTION HX 10/2002 SECTION HX 12/16/2003 D AND C 01/2002 EXCISE EXCESS SKIN TISSUE,ABDOMEN 09/2021 also breast INCISION AND DRAINAGE ABSCESS COMPLICATED/MULTIPLE 11/2010 Abd TUBAL LIGATION HX 12/16/2003 Medications: Current Outpatient Medications Medication Sig Dispense Refill tirzepatide (MOUNJARO) 2.5 mg/0.5 mL pen injector Inject 2.5 mg subcutaneously one time a week. butalb/acetaminophen/caffeine (FIORICET ORAL) Take by mouth as needed. levothyroxine (SYNTHROID) 112 mcg tablet Take 125 mcg by mouth once daily. Patient reported 125 mcg ALPRAZolam (XANAX) 1 mg tablet Take 1 mg by mouth as needed. cholecalciferol (VITAMIN D3) 5,000 unit tab Take 5,000 Units by mouth once daily. 2 diphenhydramine HCl (BENADRYL ALLERGY ORAL) Take 30 mL by mouth as needed (allergy). No current facility-administered medications for this visit. Allergies: ALLERGIES Allergen Reactions Adhesive Tape (Shaila* Itching Bee Venom Protein (* Anaphylaxis Yellow jacket Zofran [Ondansetron* Rash Prochlorperazine Mental Status Change, Other: See Comments Family History: No known colon cancer, polyps, IBD, celiac disease, pancreatic disease, or liver disease. FAMILY HISTORY Problem Relation Age of Onset Hypertension Moth (more content not included)...[facility] 06-03-2024 NoteHNO ID: [id number] Author: TRAN SAUNDERS RD Service: ? Author Type: Registered Dietitian Type: Progress Notes Filed: 06/05/2024 10:42 Note Text: [facility] Nutrition Therapy: Virtual Consult - Initial Assessment I have communicated my name and active licensure. The patient?s identity and physical location were verified at the time of this visit. Either the patient or their legal marketing representative has been informed of the risks and benefits of -- and alternatives to -- treatment through a remote evaluation and consents to proceed with the evaluation remotely. Nutrition Diagnosis: Overweight/obesity, related to, food/nutrition - related knowledge deficit, as evidenced by BMI above normative standard for age and gender. RECOMMENDED MALNUTRITION DIAGNOSIS: NO MALNUTRITION IDENTIFIED NUTRITION CARE PLAN Nutrition Intervention 06/03/2024: Modify type and amount of food at meals and snacks 1. Do not skip meals. 2. Use protein shake 1x per day to replace any skipped meals or for breakfast -Aim for 15-30 grams protein and 5 grams or less of total sugar -Premier Protein; Slim Fast High Protein; Boost Glucose Control; Arriaza Advantage; OWYN; Orgain; Fairlife High Protein; Fairlife Core Power; Muscle Milk 3. Use the Healthy Plate Method of portion control for lunch and dinner 4 oz lean meat (fish, chicken, pork tenderloin, turkey, seafood, eggs/cheese) 1/2 plate non starchy vegetables (salad, greens, cabbage, spinach, brussels sprouts, broccoli, carrots, celery, peppers, green beans, cauliflower) 1 cup starch/starchy vegetables (corn, peas, beans, winter squash, sweet potato, brown rice, whole grain pasta, whole grain bread products, quinoa) 4. Physical activity: aim for 150 minutes of exercise per week with mix of strength and cardio. 5. Drink 64 ounces per day water. Fluids should follow these guidelines: No carbonation, no caffeine, no calories, no alcohol. Protein needs: 85 gm per day Calories per day: 6622-0893 Nutrition Monitoring AND Evaluation: 1-2# weight loss per week Need for Follow up: 4-6 weeks (Call [phone] option 3) Patient presents for nutrition consult in preparation for possible GI/Bariatric Endoscopy procedure. Height and weight discussed today. Patient is currently on Mounjaro with her PCP. Presents with class 1 obesity, BMI of 33.57. Significant medical comorbidities and history include obesity class I, hiatal hernia, fatty liver disease, diabetes type 2, PCOS, migraines, hypothyroidism, hyperlipidemia, hypertension, nicotine use disorder, elevated LFTs, GERD, stomach ulcer, anxiety, diverticulosis, colitis, arthritis, cardiac arrhythmia, rare intestinal metaplasia (Goblet cell metaplasia) in 2022 in the setting of gastric ulcer . Patient is scheduled with Dr. Rodrigues today at 12:30 PM. Diet recall indicates consistent meal pattern with no skipped meals. Diet appears to be meeting protein needs with use of protein shake as meal replacement as suggested. Diet also appears to have adequate healthy plate portions of non-starchy vegetables. Fluids sufficient in hydrating beverages. Patient reports she will do strength exercises and wall pilates at home but does not keep track of how often or how long she does them for. Encouraged keeping track to ensure she is getting recommended amount of physical activity per week. Anthropometrics Weight History Weight Change Height 5 ft 6 in Current Weight BMI 208 lbs 33.57 Initial Program Weight BMI 208 lbs 33.57 lbs Procedure Weight BMI lbs %TWL Last Visit Weight lbs lbs Non-Scale Progress (1 is low and 10 is high) 1 2 3 4 5 6 7 8 9 10 Energy [] [] [] [] [] [] [] [] [] [] Sleep [] [] [] [] [] [] [] [] [] [] Looser Fitting Clothing (1 is tight and 10 is baggy) [] [] [] [] [] [] [] [] [] [] Daily Movement [] [] [] [] [] [] [] [] [] [] Physical Fitness [] [] [] [] [] [] [] [] [] [] Appetite/Hunger (1 is low hunger/ 10 is high hunger) [] [] [] [] [] [] [] [] [] [] Cravings (1 is no cravings/ 10 is frequent cravings) [] [] [] [] [] [] [] [] [] [] [place] body weight: 155 lbs. Excess body weight: 53 lbs. (Based on today's weight of 208#) Protein needs estimated: 85 gm (1.2 g protein/kg IBW) Highest weight: 275-280# Lowest weight: 170# Previous diet attempts: herbalife; arriaza; keto; plexis; AOM's; Weight History: fluctuate; 2018/2019: lost 80# on keto and exercise (20 g carb): maintained for a couple years and started gaining back once adding more carbs in. Weight loss expectations: 160-170# Patient's symptoms are: Weight Concerns: failure to lose weight Diet History: Breakfast - fairlife elite shake Snack - none Lunch - chicken breast and green beans; occasional 1/2 potato with butter Snack - not normally: will have piece of chicken Dinner - chicken breast with vegetables; occasional 1/2 potato with butter Snack - 4 pack of PB crackers (if sugar goes low) B (more content not included)...[facility]02-18-2025 History of Present illness Narrative* Tran Saunders, JANAE - 06/03/2024 11:51 AM EST [facility] Nutrition Therapy: Virtual Consult - Initial Assessment I have communicated my name and active licensure. The patient s identity and physical location wereverified at the time of this visit. Either the patient or their legal marketing representative has been informed of the risks and benefits of -- and alternatives to -- treatment through a remote evaluation andconsents to proceed with the evaluation remotely. Nutrition Diagnosis: Overweight/obesity, related to, food/nutrition - related knowledge deficit, asevidenced by BMI above normative standard for age and gender. RECOMMENDED MALNUTRITION DIAGNOSIS: NO MALNUTRITION IDENTIFIED NUTRITION CARE PLAN Nutrition Intervention 06/03/2024: Modify type and amount of food at meals and snacks 1. Do not skip meals. 2. Use protein shake 1x per day to replace any skipped meals or for breakfast -Aim for 15-30 grams protein and 5 grams or less of total sugar -Premier Protein; Slim Fast High Protein; Boost Glucose Control; Arriaza Advantage; OWYN; Orgain; Fairlife High Protein; Fairlife Core Power; Muscle Milk 3. Use the Healthy Plate Method of portion control for lunch and dinner 4 oz lean meat (fish, chicken, pork tenderloin, turkey, seafood, eggs/cheese) 1/2 plate non starchy vegetables (salad, greens, cabbage, spinach, brussels sprouts, broccoli, carrots, celery, peppers, green beans, cauliflower) 1 cup starch/starchy vegetables (corn, peas, beans, winter squash, sweet potato, brown rice, whole grain pasta, whole grain bread products, quinoa) 4. Physical activity: aim for 150 minutes of exercise per week with mix of strength and cardio. 5. Drink 64 ounces per day water. Fluids should follow these guidelines: No carbonation, no caffeine, no calories, no alcohol. Protein needs: 85 gm per day Calories per day: 8865-1310 Nutrition Monitoring & Evaluation: 1-2# weight loss per week Need for Follow up: 4-6 weeks (Call [phone] option 3) Patient presents for nutrition consult in preparation for possible GI/Bariatric Endoscopy procedure. Height and weight discussed today. Patient is currently on Mounjaro with her PCP. Presents with class 1 obesity, BMI of 33.57. Significant medical comorbidities and history include obesity class I, hiatal hernia, fatty liver disease, diabetes type 2, PCOS, migraines, hypothyroidism, hyperlipidemia, hypertension, nicotine use disorder, elevated LFTs, GERD, stomach ulcer, anxiety, diverticulosis, colitis, arthritis, cardiac arrhythmia, rare intestinal metaplasia (Goblet cell metaplasia) in 2022 in the setting of gastric ulcer . Patient is scheduled with Dr. Rodrigues today at 12:30 PM. Diet recall indicates consistent meal pattern with no skipped meals. Diet appears to be meeting protein needs with use of protein shake as meal replacement as suggested. Diet also appears to have adequate healthy plate portions of non-starchy vegetables. Fluids sufficient in hydrating beverages. Patient reports she will do strength exercises and wall pilates at home but does not keep track of howoften or how long she does them for. Encouraged keeping track to ensure she is getting recommended amount of physical activity per week. Anthropometrics Weight History Weight Change Height 5 ft 6 in Current Weight BMI 208 lbs 33.57 Initial Program Weight BMI 208 lbs 33.57 lbs Procedure Weight BMI lbs %TWL Last Visit Weight lbs lbs Non-Scale Progress (1 is low and 10 is high) 1 2 3 4 5 6 7 8 9 10 Energy [] [] [] [] [] [] [] [] [] [] Sleep [] [] [] [] [] [] [] [] [] [] Looser Fitting Clothing (1 is tight and 10 is baggy) [] [] [] [] [] [] [] [] [] [] Daily Movement [] [] [] [] [] [] [] [] [] [] Physical Fitness [] [] [] [] [] [] [] [] [] [] Appetite/Hunger (1 is low hunger/ 10 is high hunger) [] [] [] [] [] [] [] [] [] [] Cravings (1 is no cravings/ 10 is frequent cravings) [] [] [] [] [] [] [] [] [] [] [place] body weight: 155 lbs. Excess body weight: 53 lbs. (Based on today's weight of 208#) Protein needs estimated: 85 gm (1.2 g protein/kg IBW) Highest weight: 275-280# Lowest weight: 170# Previous diet attempts: herbalife; arriaza; keto; plexis; AOM's; Weight History: fluctuate; 2018/2019: lost 80# on keto and exercise (20 g carb): maintained for a couple years and started gaining back once adding more carbs in. 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 Resting Metabolic Rate: 1587 Malnutrition Screening Significant unintentional weight loss? No Eating less than 75% of usual intake for more than 2 weeks? No Potential Signs of Inflammation: no identifiable sources Education Materials Provided: None this visit READINESS TO LEARN Cognitive ability: Alert and oriented Motivation to learn: Interested Family support: Unable to assess - Family not present Instruction provided to: Patient Patient learns best by: Multiple Methods Factors affecting learning: None Physical limitations affecting learning: None Referred by: Dr. Rodrigues MNT Billing Type: Initial Assess/15 min 3 units SIGNATURE: Tran Saunders RD PATIENT NAME: Ama Avelar DATE: 06/03/2024 TIME: 11:51 AM PAGER: documented in this encounterTri[facility] Instructions* Patient Instructions* Mihaela Dow APRN.CNP - 05/28/2024 7:06 AM EST Bariatric Surgery Seminar Information -If you are seeking surgical options for weight loss, you will need to register for our surgical program. Web site registration is how our navigation team verifies your insurance coverage, places youon an appropriate bariatric surgery pathway, and assigns your providers. You can register by going to: [email or web address] Sign up to view the online seminar and complete the health questionnaire. Please make sure you complete it to the best of your ability (best to do from a computer) to prevent any delays in processing. Once submitted, your registration goes to the navigation team to get you set up. You will receive initial correspondence and instructions via the email address you registered with (usually within oneweek from submitting). We look forward to working with you, [facility] [place] documented in this encounterTri[facility]02-12-[facility]25 History of Present illness Narrative* Mihaela Dow APRN.CNP - 05/28/2024 7:00 AM EST Images from the original note were not included. BMI Obesity Medicine Consult - VIRTUAL VISIT May 28, 2024 This Team Access Model visit is a virtual encounter. I have communicated my name and active licensure. The patient's identity and physical location were verified at the time of this visit. Either thepatient or their legal marketing representative has been informed of the risks and benefits of -- and alternat ora to -- treatment through a remote evaluation and consents to proceed with the evaluation remotely. Consultation requested by Huyen Huggins MD for an opinion regarding Obesity. My final recommendations will be communicated back to the requesting physician by way of shared Medical record or letterto requesting physician via US mail. Patient Summary: Ama Avelar is a 49 year old female with obesity who [facility] [place] for an initial evaluation of her obesity and is interested in non-surgical weight loss approaches. Primary reason for wanting obesity treatment : improve overall health Overall goal: 150 lbs Patient seen yesterday by Dr. Blevins in dinkey engineer for medical weight management. She currently takes Mounjaro [tirzepatide] for type 2 diabetes per her PCP. This was increased yesterday to 5 mg dose. Her highest weight in life was 275 lbs (6-7 yrs ago). She was referred to discuss possibility of bariatric surgery, however, her current BMI is 33. Weight History: She reports a family history of obesity (sister, Mom, Daughter) and adolescence weight gain. She states her weight gain is related to the following factors, including reduced physical activity and consumption of unhealthy foods. Difficulty losing weight? yes History of weight loss with regain? She lost 95 lbs I doing keto and walking 10 miles a day in 0951-2270. Her weight then was 275 lb. Gained 40-50 lbs back. Since she stopped doing Keto she gained some weight back over time. Prior Weight Loss Surgery: No Weight Graph: (please see graph scanned in chart) Diet History: Past weight loss attempts? commercial diets, self-directed, exercise program, and anti-obesity medications. Keto (lost 100 lbs) Weight Promoting Medications: None Previous Anti-Obesity Medications: Currently takes Mounjaro [tirzepatide], originally prescribed by PCP for DM 2. Dose increase now being managed by Dr. Blevins. Last A1C well controlled at 5.8%. Diet: Quality of diet: 24hr recall suggests healthy diet. Characterization of diet: Structured. Seo Marketing Specialist of impaired eating habits: denies Eating Disorder no See Dr. Blevins's note for 24 hr recall. Beverages: water Alcohol: no Exercise: Regular exercise: yes walking everyday 2-5 miles Strength/resistance exercise: No Barriers to regular exercise? back, neck and hip pain Work-related activity: Sedentary ?Sleep: GALDINO NO ; CPAP n/a Quality: adequate STOP BANG 1. Snoring : Do you snore loudly (louder than talking, through closed doors)? NO 2. Tired : Do you often feel tired, fatigued, or sleepy during daytime? NO 3. Observed : Has anyone observed you stop breathing during sleep?NO 4. Blood Pressure: treated for high blood pressure?YES 5. BMI : BMI more than 35 kg/m2? NO 6. Age : Age over 50 yr old? YES 7. Neck circumference: Neck circumference greater than 40 cm?NO 8. Gender : Gender male? 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 Hyperlipemia Hiatal Hernia Arthritis Essential (Primary) Hypertension Elevated Liver Enzymes Current Every Day Smoker Class 1 Obesity Due to Excess Calories With Body Mass Index (Bmi) of 33.0 to 33.9 in Adult Lumbar Back Pain Acquired Hypothyroidism Diastasis of Rectus Abdominis PAST SURGICAL HISTORY Procedure Laterality Date SECTION HX 10/2002 SECTION HX 12/16/2003 D AND C 01/2002 EXCISE EXCESS SKIN TISSUE,ABDOMEN 09/2021 also breast INCISION & DRAINAGE ABSCESS COMPLICATED/MULTIPLE 11/2010 Abd TUBAL LIGATION HX 12/16/2003 Obesity ROS/ FHx GEN: Fatigue:No CV: h/o palpitations/cardiac arrhythmia, CP:No + HTN PULM: Asthma:No GI: GERD:yes; Gallstones: No; Fatty liver disease:yes; H/o hernia:No MSK: Joint Pain: yes : Nephrolithiasis:No; Symptoms of PCOS(women): yes No history of thyroid disorder, cold intolerance, heat intolerance, polydypsia + type 2 diabetes - A1C 5.8% No history of pancreatitis Denies any personal/family history of medullary thyroid cancer or MEN2 NEURO: Migraines/GRIFFITHS: Yes; H/o seizures: No Glaucoma:No; Cataracts No Symptoms of pseudotumor cerebri:No Family History Problem Relation Age of Onset Hypertension Mother Diabetes Father Heart Father Hypertension Father Diabetes Son type 1 Social History Social History Tobacco Use Smoking status: Every Day Current packs/day: 0.00 Average packs/day: 1 pack/day for 23.1 years (23.1 ttl pk-yrs) Types: Cigarettes Start date: 10/11/1997 Last attempt to quit: 11/15/2020 Years since quittin.5 Smokeless tobacco: Never Vaping Use Vaping status: Never Used Substance Use Topics Alcohol use: No Drug use: No PE Wt 94.8 kg (209 lb) BMI 33.48 kg/m VIDEO EXAM: (if done, performed via video enabled technology) GENERAL: alert and appropriate, in no distress, well-hydrated, well nourished, and happy, smiling, interactive Results: No data to display No results found for: CHOL No results found for: HDL No results found for: LDL No results found for: TG No data to display CrCl cannot be calculated (No successful lab value found.). No results found for: HBA1C Impression: Ama Avelar is a 49 year old female with Class I obesity (Body mass index is 33.48 kg/m .) who has early onset obesity with several periods of weight loss followed by weight gain . The causes of her obesity are multifactorial, biological, psychological and social and environmental. She has several weight-related medical comorbidities which increase her cardiovascular mortality risk. There are additional metabolic obesity complications including type 2 diabetes mellitus, dyslipidemia, hypertension, elevated LFTs s/o non alcoholic fatty liver disease, and PCOS. Her STOPBANG scor e is 2, suggesting she is at low risk of obstructive sleep apnea. Other medical conditions as above. It is likely a combination of weight loss therapies will be needed. She appears motivated today. Plan: -- We reviewed at length available behavioral, medical, and surgical interventions for this diseaseprocess. She was referred to discuss the possibility of bariatric surgery, however, her BMI is 33.48. We reviewed although guidelines have changed regarding bariatric surgery requirements, majority of insurances still may follow BMI<40 automatically qualifies for bariatric surgery and BMI 35-40 can be approved with weight related comorbidities. Additionally her type 2 diabetes is well controlled at 5.8% with low dose Mounjaro [tirzepatide]. We discussed most likely bariatric surgery may not be covered or approved by insurance given her BMI is too low at this time, however, to fully confirmthis I have provided her our bariatric surgery seminar link to register for the program. Once registered, our navigation team will contact her specific plan to determine coverage and eligibility. We did discuss bariatric endoscopy may be an option, she is interested in pursuing referral to bariatric endoscopy clinic if she does not qualify for bariatric surgery. Otherwise, I would recommend continuing non surgical weight management with Dr. Donna Darby and she already has follow ups scheduled with her soon. -- Lab work up to date and reviewed. Follow-up visit for management of above interventions as needed. I spent a total of 20 minutes on the date of the service which included preparing to see the patient, [id number] patient care, completing clinical documentation, obtaining and/or reviewing separately obtained history, performing a medically appropriate examination, counseling and educating the pat ient/family/caregiver, and ordering medications, tests, or procedures. This visit was performed virtually due to the COVID-19 epidemic as an effort to protect patients and minimize exposure. Mihaela Dow, MSN, MEDICAL ADMINISTRATIVE TECHNICIAN, RN MDS-C [facility] [place] [address], [address] [place] [address] documented in this encounterTrihealth [facility]02-12-2025 NoteHNO ID: [id number] Author: MIHAELA DOW APRN.RADHA Service: ? Author Type: Nurse Practitioner Type: Progress Notes Filed: 05/28/2024 07:13 Note Text: BMI Obesity Medicine Consult - VIRTUAL VISIT May 28, 2024 This Team Access Model visit is a virtual encounter. I have communicated my name and active licensure. The patient's identity and physical location were verified at the time of this visit. Either the patient or their legal marketing representative has been informed of the risks and benefits of -- and alternatives to -- treatment through a remote evaluation and consents to proceed with the evaluation remotely. Consultation requested by Huyen Huggins MD for an opinion regarding Obesity. My final recommendations will be communicated back to the requesting physician by way of shared Medical record or letter to requesting physician via [place] mail. Patient Summary: Ama Avelar is a 49 year old female with obesity who [facility] [place] for an initial evaluation of her obesity and is interested in non-surgical weight loss approaches. Primary reason for wanting obesity treatment : improve overall health Overall goal: 150 lbs Patient seen yesterday by Dr. Blevins in [employer] [place] for medical weight management. She currently takes Mounjaro [tirzepatide] for type 2 diabetes per her PCP. This was increased yesterday to 5 mg dose. Her highest weight in life was 275 lbs (6-7 yrs ago). She was referred to discuss possibility of bariatric surgery, however, her current BMI is 33. Weight History: She reports a family history of obesity (sister, Mom, Daughter) and adolescence weight gain. She states her weight gain is related to the following factors, including reduced physical activity and consumption of unhealthy foods. Difficulty losing weight? yes History of weight loss with regain? She lost 95 lbs I doing keto and walking 10 miles a day in 0368-2627. Her weight then was 275 lb. Gained 40-50 lbs back. Since she stopped doing Keto she gained some weight back over time. Prior Weight Loss Surgery: No Weight Graph: (please see graph scanned in chart) Diet History: Past weight loss attempts? commercial diets, self-directed, exercise program, and anti-obesity medications. Keto (lost 100 lbs) Weight Promoting Medications: None Previous Anti-Obesity Medications: Currently takes Mounjaro [tirzepatide], originally prescribed by PCP for DM 2. Dose increase now being managed by Dr. Blevins. Last A1C well controlled at 5.8%. Diet: Quality of diet: 24hr recall suggests healthy diet. Characterization of diet: Structured. Seo Marketing Specialist of impaired eating habits: denies Eating Disorder no See Dr. Blevins's note for 24 hr recall. Beverages: water Alcohol: no Exercise: Regular exercise: yes walking everyday 2-5 miles Strength/resistance exercise: No Barriers to regular exercise? back, neck and hip pain Work-related activity: Sedentary ?Sleep: GALDINO NO ; CPAP n/a Quality: adequate STOP BANG 1. Snoring : Do you snore loudly (louder than talking, through closed doors)? NO 2. Tired : Do you often feel tired, fatigued, or sleepy during daytime? NO 3. Observed : Has anyone observed you stop breathing during sleep?NO 4. Blood Pressure: treated for high blood pressure?YES 5. BMI : BMI more than 35 kg/m2? NO 6. Age : Age over 50 yr old? YES 7. Neck circumference: Neck circumference greater than 40 cm?NO 8. Gender : Gender male? 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 Hyperlipemia Hiatal Hernia Arthritis Essential (Primary) Hypertension Elevated Liver Enzymes Current Every Day Smoker Class 1 Obesity Due to Excess Calories With Body Mass Index (Bmi) of 33.0 to 33.9 in Adult Lumbar Back Pain Acquired Hypothyroidism Diastasis of Rectus Abdominis PAST SURGICAL HISTORY Procedure Laterality Date SECTION HX 10/2002 SECTION HX 12/16/2003 D AND C 01/2002 EXCISE EXCESS SKIN TISSUE,ABDOMEN 09/2021 also breast INCISION AND DRAINAGE ABSCESS COMPLICATED/MULTIPLE 11/2010 Abd TUBAL LIGATION HX 12/16/2003 Obesity ROS/ FHx GEN: Fatigue:No CV: h/o palpitations/cardiac arrhythmia, CP:No + HTN PULM: Asthma:No GI: GERD:yes; Gallstones: No; Fatty liver disease:yes; H/o hernia:No MSK: Joint Pain: yes : Nephrolithiasis:No; Symptoms of PCOS(women): yes No history of thyroid disorder, cold intolerance, heat intolerance, polydypsia + type 2 diabetes - A1C 5.8% No history of pancreatitis Denies any personal/family history of medullary thyroid cancer or MEN2 NEURO: Migraines/GRIFFITHS: Yes; H/o seizures: No Glaucoma:No; Cataracts No Symptoms of pseudotumor cerebri (more content not included)...[facility]02-10-2025 NoteHNO ID: [id number] Author: LAINE COLON MD Service: ? Author Type: Physician Type: Progress Notes Filed: 05/26/2024 12:32 Note Text: Patient Summary: Ama Avelar is a 49 year old female with obesity who presents for an initial evaluation of overweight/obesity to treat and prevent co-morbidities and is interested in open to all options. Motivation for seeking treatment for the disease of overweight/obesity : She wants to be healthier and she wants to lose weight. Goal weight: 150 lb Lowest recall weight: 170 lb Highest non- recall weight: 275 lb Patient identified barriers to weight loss: She works a lot so she doesn't get much exercise. Weight History: She reports a family history of obesity (sister, Mom, Daughter) and adolescence weight gain. She states her weight gain is related to the following factors, including reduced physical activity and consumption of unhealthy foods. Difficulty losing weight? yes History of weight loss with regain? She lost 95 lbs I doing keto and walking 10 miles a day in 1579-0724. Her weight then was 275 lb. Gained 40-50 lbs back. Since she stopped doing Keto she gained some weight back over time. - Last Wt 05/26/24 : 94.8 kg (209 lb) 5% weight loss = 199 lbs, 10% weight loss = 188 lbs WEIGHT GRAPH: Diet/Nutrition overview: Awake - B - 1/2 cup oatmeal , [place]lton and flax, walnuts, 1 teaspoon brown sugar and vanilla. , fruit smoothie, spinach, cape verdean yogurt, strawberries, blueberries, pineapples, apples, lemon marilee shot. Sometimes 26 gram protein S - L - chicken breast- reg flour 3 tablespoon/butter (1/2 stick day) and bake, lettuce , turkey , hamburger or steak S - 3pm Peanut butter crackers 4 D - same chicken above, green beans, cauliflower, broccoli, S - flourless cookies- oatmeal cookies, zero cape verdean yogurt- sugar free pudding mix- walnuts Fluids: 7 bottles of water, Bedtime - Quality of diet: 24hr recall suggests healthy diet. Characterization of diet:Structured and evening snacking. Seo Marketing Specialist of impaired eating habits:denies Eating Disorder no Cravings: sweet Sleep Duration: 4-6 hours. GALDINO NO ; CPAP NO Lay down 10-11pm , wake up 4am. Wakes up multiple times Stress Stress:yes , Cause:Work and Financial Obesity Related Comorbidities: Prior Weight Loss Surgery:No PAST MEDICAL HISTORY Diagnosis Date Anxiety HTN (hypertension) Hypothyroid PAST SURGICAL HISTORY Procedure Laterality Date SECTION HX 10/2002 SECTION HX 12/16/2003 D AND C 01/2002 EXCISE EXCESS SKIN TISSUE,ABDOMEN 09/2021 also breast INCISION AND DRAINAGE ABSCESS COMPLICATED/MULTIPLE 11/2010 Abd TUBAL LIGATION HX 12/16/2003 FAMILY HISTORY Problem Relation Age of Onset Hypertension Mother Diabetes Father Heart Father Hypertension Father Diabetes Son type 1 Social History Tobacco Use Smoking status: Every Day Current packs/day: 0.00 Average packs/day: 1 pack/day for 23.1 years (23.1 ttl pk-yrs) Types: Cigarettes Start date: 10/11/1997 Last attempt to quit: 11/15/2020 Years since quittin.5 Smokeless tobacco: Never Vaping Use Vaping status: Never Used Substance Use Topics Alcohol use: No Drug use: No AOM Medications: Tirzepatide (Mounjaro)- type [address] Plunkett has been on 2.5mg since starting it 9months ago (last A1c 5.8 04/2024, last A1c 07/2016) 2009 Type 2 DM Weight Promoting Medications: Diet/weight loss History: Past weight loss attempts? anti-obesity medications Phentermine. Caloric restriction, Weight watchers, Plexus and intermittent fasting Exercise: Regular exercise: yes walking everyday 2-5 miles Strength/resistance exercise:no Barriers to regular exercise? Yes has back, neck and hip pain with certain things Work-related activity:Sedentary. 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 Current Contraception: tubal sterilization Obesity ROS/ FHx GEN: Fatigue:yes CV: h/o palpitations/cardiac arrhythmia, Chest pain: yes- palpitations from anxiety (has had cardiac workup in the past that was normal through [facility]- not sure of year) HTN: yes PULM: Asthma:no GI: GERD:yes ; Gallstones:no ; Fatty liver disease:yes Pancreatitis: no MSK: Joint Pain:yes : Nephrolithiasis: no Symptoms of PCOS: yes NEURO: Migraines/GRIFFITHS: yes hx of aura ; H/o seizures: no Glaucoma:no; Cataracts no Symptoms of or History of pseudotumor cerebri:no Family or personal History of MEN2 or Medullary thyroid cancer: no PE BP 130/74 Pulse 76 Resp (!) 98 Ht 168.3 cm (5' 6.25) Wt 94.8 kg (209 lb) BMI 33.48 kg/m? Waist Circumference: 46.75 Neck Circumference: GENERAL: Female in NAD. Mixed central and gluteofemoral adiposity. SKIN: acanthosis nigricans no, Skin tags: no Hirsutism: no HEENT: PERRL, No supraclavicular adiposity. No dorsal adipo (more content not included)...[facility]02-10-2025 History of Present illness Narrative* Laine Colon MD - 05/26/2024 10:17 AM EST Images from the original note were not included. Patient Summary: Ama Avelar is a 49 year old female with obesity who presents for an initial evaluation of overweight/obesity to treat and prevent co-morbidities and is interested in open to all options. Motivation for seeking treatment for the disease of overweight/obesity : She wants to be healthier and she wants to lose weight. Goal weight: 150 lb Lowest recall weight: 170 lb Highest non- recall weight: 275 lb Patient identified barriers to weight loss: She works a lot so she doesn't get much exercise. Weight History: She reports a family history of obesity (sister, Mom, Daughter) and adolescence weight gain. She states her weight gain is related to the following factors, including reduced physical activity and consumption of unhealthy foods. Difficulty losing weight? yes History of weight loss with regain? She lost 95 lbs I doing keto and walking 10 miles a day in [id number]. Her weight then was 275 lb. Gained 40-50 lbs back. Since she stopped doing Keto she gained some weight back over time. - Last Wt 05/26/24 : 94.8 kg (209 lb) 5% weight loss = 199 lbs, 10% weight loss = 188 lbs WEIGHT GRAPH: Diet/Nutrition overview: Awake - B - 1/2 cup oatmeal , carlton and flax, walnuts, 1 teaspoon brown sugar and vanilla. , fruit smoothie,spinach, cape verdean yogurt, strawberries, blueberries, pineapples, apples, lemon marilee shot. Sometimes 26 gram protein S - L - chicken breast- reg flour 3 tablespoon/butter (1/2 stick day) and bake, lettuce , turkey , hamburger or steak S - 3pm Peanut butter crackers 4 D - same chicken above, green beans, cauliflower, broccoli, S - flourless cookies- oatmeal cookies, zero cape verdean yogurt- sugar free pudding mix- walnuts Fluids: 7 bottles of water, Bedtime - Quality of diet: 24hr recall suggests healthy diet. Characterization of diet:Structured and evening snacking. Seo Marketing Specialist of impaired eating habits:denies Eating Disorder no Cravings: sweet Sleep Duration: 4-6 hours. GALDINO NO ; CPAP NO Lay down 10-11pm , wake up 4am. Wakes up multiple times Stress Stress:yes , Cause:Work and Financial Obesity Related Comorbidities: Prior Weight Loss Surgery:No PAST MEDICAL HISTORY Diagnosis Date Anxiety HTN (hypertension) Hypothyroid PAST SURGICAL HISTORY Procedure Laterality Date SECTION HX 10/2002 SECTION HX 12/16/2003 D AND C 01/2002 EXCISE EXCESS SKIN TISSUE,ABDOMEN 09/2021 also breast INCISION & DRAINAGE ABSCESS COMPLICATED/MULTIPLE 11/2010 Abd TUBAL LIGATION HX 12/16/2003 FAMILY HISTORY Problem Relation Age of Onset Hypertension Mother Diabetes Father Heart Father Hypertension Father Diabetes Son type 1 Social History Tobacco Use Smoking status: Every Day Current packs/day: 0.00 Average packs/day: 1 pack/day for 23.1 years (23.1 ttl pk-yrs) Types: Cigarettes Start date: 10/11/1997 Last attempt to quit: 11/15/2020 Years since quittin.5 Smokeless tobacco: Never Vaping Use Vaping status: Never Used Substance Use Topics Alcohol use: No Drug use: No AOM Medications: Tirzepatide (Mounjaro)- type [address] Plunkett has been on 2.5mg since starting it 9months ago (last A1c 5.8 04/2024, last A1c 07/2016) 2009 Type 2 DM Weight Promoting Medications: Diet/weight loss History: Past weight loss attempts? anti-obesity medications Phentermine. Caloric restriction, Weight watchers, Plexus and intermittent fasting Exercise: Regular exercise: yes walking everyday 2-5 miles Strength/resistance exercise:no Barriers to regular exercise? Yes has back, neck and hip pain with certain things Work-related activity:Sedentary. 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 Current Contraception: tubal sterilization Obesity ROS/ FHx GEN: Fatigue:yes CV: h/o palpitations/cardiac arrhythmia, Chest pain: yes- palpitations from anxiety (has had cardiac workup in the past that was normal through [facility]- not sure of year) HTN: yes PULM: Asthma:no GI: GERD:yes ; Gallstones:no ; Fatty liver disease:yes Pancreatitis: no MSK: Joint Pain:yes : Nephrolithiasis: no Symptoms of PCOS: yes NEURO: Migraines/GRIFFITHS: yes hx of aura ; H/o seizures: no Glaucoma:no; Cataracts no Symptoms of or History of pseudotumor cerebri:no Family or personal History of MEN2 or Medullary thyroid cancer: no PE BP 130/74 Pulse 76 Resp (!) 98 Ht 168.3 cm (5' 6.25) Wt 94.8 kg (209 lb) BMI 33.48 kg/m Waist Circumference: 46.75 Neck Circumference: GENERAL: Female in NAD. Mixed central and gluteofemoral adiposity. SKIN: acanthosis nigricans no, Skin tags: no Hirsutism: no HEENT: PERRL, No supraclavicular adiposity. No dorsal adiposity. RESPIRATORY: CBTA CARDIAC: RRR ABDOMEN: Large pannus; EXTREMITIES: peripheral edema: Impression: Ama Avelar is a 49 year old Female with Class I obesity (Body mass index is 33.48 kg/m .) who has adolescence obesity with several periods of weight loss followed by weight gain . The causes of her obesity are multifactorial, biological, psychological and social and environmental. Specific factors include increased consumption of high calorie/process foods, suboptimal physical activity, onset of menopause, inadequate sleep duration, and poor sleep quality. She has numerous weight-related medical comorbidities which increase her cardiovascular mortality risk. There are additional metabolic obesity complications including type 2 diabetes mellitus, dyslipidemia, hypertension, elevated LFTs s/o non alcoholic fatty liver disease, and PCOS. Other medical co nditions as above. Regarding her lifestyle, as above, she has no significant behavioral contributors; her physical activity is suboptimal. Overall, it is clear that her quality of life is mildly compromised by her weight. It is likely a combination of weight loss therapies will be needed. She appears motivated today. Plan: -- Based on the severity and resistance of the obesity/overweight with co- morbidities, I believe a open to all options intervention is the best and most appropriate parts counterman therapeutic option. -- We discussed several strategies to track food intake and increase mindfulness around eating while will decrease calorie intake. She was counseled on the following: Eating primarily whole foods. Limit carbs, especially processed carbs. Do not drink your calories 30 grams of protein for breakfast decreases your hunger during the day by up to 40 % Premier Protein or generic 30 gm protein 1 gm sugar Walk for 15 minutes immediately a meal. -- Encouraged the patient to improve her physical activity. Although cardiovascular exercise is most beneficial for weight loss initially, we discussed healthy muscle from a combination of resistancetraining and cardiovascular exercise is the best parts counterman plan. An overall goal of 150-200 minutesper week of exercise has been effective in weight loss and maintenance. -- Reviewed that monitoring weight daily and food intake can have a positive impact on overall weight loss and maintenance of weight loss. Activity tracking can be used to stay on target for exercisehowever should not be used to reward oneself She understands that there can be limitations of pharmacotherapy due to contraindications, side effects and cost. Patient was told to contact her insurance company to see what AOMs and supervised behavioral medical appointments are currently covered. Patient understands she will have more success when following a healthy lifestyle. We reviewed continued use of online tracking of daily weights, food journal and if desired physical activity. We reviewed that during management she is to report any concerning side effects of any pharmacotherapy she is placed on. She understands that she will need routine follow up in the office. Prior to any virtual visits in the future she will need to check her Blood pressure, weight, and pulse. Most recent labs from December 2023 and Apr 2024 TSH- 2.22 A1c 5.8 B12 698 VitD 28 Hg/HC 15.2/45.6 Creat 1.0 GFR 62 AST 17 ALT 25 Lipid panel lalit 196, TG 273, HDL 37 - discussed increasing Mounjaro to 5mg- pt has at home rx by PCP for Type 2 DM - reviewed nutrition in detail- change breakfast, eliminate butter/saturated fats - resistance training reviewed - [facility] reviewed- pt would like to proceed - protein goal 90-130g per day (minimum) (E11.9) Type 2 diabetes (HCC) (primary encounter diagnosis) (E78.1) Hypertriglyceridemia (E78.6) Low HDL (under 40) (K76.0) Fatty liver disease, nonalcoholic (K21.9) Gastroesophageal reflux disease without esophagitis (E28.2) PCOS (polycystic ovarian syndrome) (I10) Hypertension, unspecified type (E66.811, Z68.33) Class 1 obesity with serious comorbidity and body mass index (BMI) of 33.0 to 33.9 in adult, unspecified obesity type Prescription instructions reviewed with patient as applicable. Potential red flag symptoms discussed with the patient. Reviewed appropriate action plan to take ifred flag symptoms occur. Patient agreeable to treatment plan. -- follow-up visit in 6 weeks for management of above interventions I spent a total of 70 minutes on the date of the service which included preparing to see the patient, [id number] patient care, completing clinical documentation, obtaining and/or reviewing separately obtained history, performing a medically appropriate examination, counseling and educating the pat ient/family/caregiver, and ordering medications, tests, or procedures. Laine Blevins MD, KRISTIN MIJARES [facility] Instructions* Patient Instructions* Laine Colon MD - 05/26/2024 10:17 AM EST Images from the original note were not included. Weight Management: You have taken the initiative to become a healthier version of yourself and to decrease the risks that come with the diagnosis of obesity or being overweight. We are happy to help you along this journey but know this is a lifetime commitment to yourself. Losing just 3-10 % of your body weight can decrease your risks of many other serious diseases like diabetes, heart disease, osteoarthritis, hypertension, cancer and so many others. During this time you will have triumphs, setbacks and plateaus-your body will fight against you but we are here to give you the tools and the resources to continue to reach your goals. We recommend during this time that you track your weight daily or at least five times per week as well as tracking your nutrition. You may track your activity but do not use hitting your fitness goals as a reward system as this can derail your success. We recommend weekly physical activity of 150-200 min/week-although physical exercise, this will be especially important for weight maintenance. Exercise can have many other benefits including improving insulin resistance, improving balance, bone health, improving mental health and cardiovascular health. Do not feel overwhelmed - we will discussthis more at your visits. Our time will be limited with each visit but we will try to touch on factors that are important to you and to your overall goals. We will try to set a goal at the end of each visit and then decide onwhat we want to accomplish with your upcoming visits. On your After Visit Summary (AVS), we will provide you with information that may be useful during this journey so please remember to read the information given. Check your AVS a few days after your appointment because we may have added more information specifically for you. Remember that if you are placed on medications, they are tools that can help you succeed but you must put in the work. Your nutrition will be the main factor. There are medications that work well forsome and not for others- so it may take time to find the right combination for your body's needs. Please remember that factors such as other health co-morbidities one might have, as well as insurance coverage, will play a factor in determining which medications you can take. Most of the newer medications that are all the craze ,injectables, may not be covered or will only be covered if you fail months of oral medications or have Type 2 diabetes so please be patient with the process. It would be beneficial for you to determine what your insurance covers as far as Anti-Obesity Medications (AOMs), Nutritional Counseling, behavioral intervention and weight loss surgery. Please call your health insurance prior to your first appointment and write down coverage for each of those therapies. Most importantly, remember that ultimately our goal is to help you get to a healthier weight which will decrease your overall health risks. We will work together as a team and try to reach your personalized goals as well. Follow-up appointments Please arrive to follow-up visits a minimum of 15 minutes prior to your appointment. Follow-up weight management visits can be virtual. You will need to report a current blood pressure, heart rate (pulse) and weight at the beginning of each virtual appointment so you will need to have a reliable BP cuff, either wrist or upper arm. If you need to reschedule your appointment time or switch from an in-office visit to a virtual visit or vice versa, you need to call our office as we have designated appointment slots. This should not be done on [facility] as you will not be scheduled appropriately and will need to be rescheduled. We appreciate that you have entrusted us with your health and know that we are committed to this process with you. Sincerely, Laine Darby MD, KRISTIN MIJARES & Teri Henderson CNP Advanced Education from the [employer]esity [employer] Obesity Obesity is a disease that affects nearly one-third of the adult [place] population (approximately 60 million). The number of overweight and obese Americans has continued to increase since 1959, a trend that is not slowing down. Today, 64.5 percent of adult Americans (about 127 million) are categorized as being overweight or obese. Each year, obesity causes at least 300,000 excess deaths in the [place] and healthcare costs of [place] adults with obesity amount to approximately $100 billion. (AOA) Obesity is a complex, multi-factorial chronic disease involving: Environmental (social and cultural) The tendency toward obesity is a result of our environment: lack of physical activity along with high-calorie, low-cost foods. Home, work, school, and even the community can inhibit a healthy lifestyle. Genetic (Hereditary plays a large role in determining how susceptible people are to overweight and obesity). Genes also influence how the body jarvis calories for energy and stores fat. Physiologic, metabolic, behavioral (eating too many calories while not getting enough exercise) andpsychological components. It is the second leading cause of preventable in the [place] Behavioral changes brought on by economic development, modernization and urbanization have been linked to therise in global obesity. Calculating BMI Body Mass Index (BMI) is a measurement tool used to determine excess body weight. Overweight is defined as a BMI of 25 or more, obesity is 30 or more, and severe obesity is 40 or more. You can visit www.nhlbi.nih.gov to estimate your BMI. Obesity Related Health Conditions The morbidity and mortality risk from being overweight is proportional to its degree. Individuals with morbid obesity, therefore, have the highest risk for developing numerous illnesses that often reduce mobility and quality of life due to their excess weight. In particular, type 2 diabetes, gallbladder disease and osteoarthritis have been found to increase concurrently with higher BMI. Prematuredeath, a 20-year shorter life span, has also been found in individuals with morbid obesity. All of the systems that make the body function are affected by morbid obesity. Type 2 diabetes Gallbladder disease and gallstones Liver disease Osteoarthritis, a disease in which the joints deteriorate. This is possibly the result of excess weight on the joints. Gout, another disease affecting the joints Pulmonary (breathing) problems, including sleep apnea in which a person can stop breathing for a short time during sleep Reproductive problems in women, including menstrual irregularities and infertility Gastroesophageal reflux/heartburn Hypertension Heart Disease Depression Psychological disorders/social impairments Urinary Stress Incontinence Obesity is also linked to higher rates of certain types of cancer. Obese men are more likely than non-obese men to from cancer of the colon, rectum, or prostate. Obese women are more likely than non-obese women to from cancer of the gallbladder, breast, uterus, cervix, or ovaries https://[email or web address]/health/diseases/74859-oeghss-avhgfrdjox-wpfoeyc-e ducation - Eat primarily whole foods. Limit carbs, especially processed carbs. Eat - Meat, vegetables and fruits with skin on if possible, eggs, cheese. - Do not drink your calories - 30 grams of protein for your first meal of the day decreases your hunger during the day by up to 40 %. Options include: Premier Protein or generic 30 gm protein 1 gm sugar or 5 eggs or 2-3 eggs andsome unbreaded meat and/or cheese. No fruit, vegetables, bread, grain, yogurt, Smoothies, etc. - Walk for 15 minutes immediately after meal. Nutrition Reminders: NO NAKED CARBS!! Protein >= Carbs for each meal (if you are going to eat 50g carbs for lunch you should eat 50g protein or more). If you do not eat your carbs for lunch you do not get to save them for dinner- you use them or losethem. Balance your Protein between meals. Unless told otherwise your Minimum protein each day is 30grams per meal but don t be afraid to eat more. Focus on WHOLE FOODS if you can as your Gut Microbiome will benefit and you will feel more satisfied - the only caviot to this is protein shakes if needed. Water intake should be a minimum of 64oz per day- but more is better (to an extent) unless you havea medical condition that requires you to keep it to a minimum. Nothing is off limits- this is not about restricting yourself- this about learning what your body can have and still respond well to and learning how to balance food and still feel good. Track your food, weigh your food, measure your portion sizes as most people underestimate their food by approximately 40%. You should be tracking your Carbohydrates and Protein daily. It s ok if you had a bad day- write it down and move on! Weigh yourself daily or at least 5 times per week, it will help to keep you accountable. If you are hungry- think about your stress level, your sleep (did you get 7.5- 9hrs?) and your protein consumption- if you did not meet your goals then those could be contributing to your hunger. During weight loss phase it is ok to use two protein shakes per day and eating one meal along with it - studies have shown you will lose more weight and keep it off. Take a multivitamin daily Sit less Move more- Exercise including resistance training is very important for your health and ifyou are not getting routine exercise right now there will come a point when it will become an important piece of this process. 5 (FIVE) gram carb vegetable options 1 cup raw OR cup cooked: Asparagus Bella sprouts Beets Broccoli Brussel sprouts Cabbage Carrots Cauliflower Celery [place] Eggplant Green beans Lettuce Peppers Snap peas Spaghetti squash Spinach Tomato Turnips Zucchini 15 gram carb vegetable options cup cooked corn or hominy corn on the cob, large (5 oz) cup cooked green peas 4.3 gm complete protein cup cooked gayle beans 1 small potato or sweet potato cup cooked potato, plain cup cooked sweet potato, plain 1 cup winter squash (pumpkin, acorn, butternut) 1 cup marinara or pasta sauce - check label cup tomato juice cup tomato puree Beans, Seeds, Nuts cup cooked beans (kidney, torres, red, green, etc.) cup cooked lentils cup baked beans 4 tablespoons nut butter <15 gram carb fruit options Berries have the lowest sugar content 1/2 medium apple - 12.5 carbs 1/2 medium avocado - 6.5 gm carbs 1/2 medium banana - 15 carbs 1/2 cup blueberries - 11 carbs - may actually help you lose weight 1/2 cup fresh cherries -11 carbs 1 medium Shikha -9 carbs 1/2 cup fresh cranberries - 6.5 carbs 1/2 c grapes - 15 carbs 1/2 medium grapefruit - 10.5 carbs 1/2 cup diced honeydew melon - 8 carbs 1 medium kiwi without skin - 11 carbs 1/2 cup sliced delmy -14 carbs 1 medium nectarine - 15 carbs 1 medium orange -15.5 carbs 1 medium peach -14.5 carbs 1/2 cup fresh pineapple -11 carbs 1 medium plum -7.5 carbs 1 prune - 6 carbs 1/4 c raisins - 31.25 carbs 1/2 cup raspberries -7.5 carbs 1/2 c strawberries - 12.7 carbs 1 medium tangerine -12 carbs 1/2 cup diced watermelon - 6 carbs Grains Brown rice 1/2 c 5.5g protein 24 carb White long-grain rice 1/2 c 2g protein 22.5 carb Quinoa 1/2 c 4 gm complete protein 25 carb Oatmeal, old fashioned 1/2 c 5g protein 27g carb Protein - no carbs Egg 1 large - 6g Egg white 1 large 3.6g 3 oz is approximately the size of a deck of cards and equals 21 g protein so 4 oz is 28 gm protein Beef, Chicken, [place], Pork, Shah 1 oz 7g Fish, Tuna Fish 1 oz 7g (Starkist tuna packet 2.6 oz 17 gm protein) Seafood (Crabmeat, Shrimp, Lobster) 1 oz 6g Protein shakes (read labels) Premier Protein or generic [employer] Equate, [employer] High Performance- 30g protein & 1g carb - meal replacement Premier Protein powder or generic- 30 gm protein, 1g carb Premier Protein plant protein powder - 25 gm protein, 0 sugar/2 carb Vanilla and chocolate (not a meal replacement) Fairlife 30 gram protein - 30g protein & 3g carb BOOST Glucose Control Max 30g Protein Nutritional Drink - 30g protein & 1 carb - meal replacement Slimfast High Protein - 20g protein & 1g carb Ensure Max Protein Nutrition Shake 30g protein & 2 carb Protein AND carbs Beef/[place] Jerky 1 oz dried 10-15g protein - check carb count, can be high if sugar added Slim Geo - 6 gm protein and 4 net carb Great Value original turkey sausage sticks - 7 gm protein and 2 gm carb [employer]anci [employer] Derick (at [facility]) Original smoked sausage sticks - 8 gm protein and 0 carb Imitation Crab Meat 1 oz - 2g protein & 4g carb Milk, skim 2% or 1% 8 oz - 8g protein & 12g carb Fairlife 2% milk 8 oz -13 g protein & 6g carb [place] yogurt Full Fat Niuean Yogurt 1 cup - 20.4g protein & 9.1g carb 2% Ni[place] Yogurt 1 cup - 22.7g protein & 9.1g carb 0% (fat-free) Niuean Yogurt - 1 cup 24g protein & 9.3g carb Aldi Protein Ni[place] yogurt single svg - 15g protein & 7g carb Chobani Zero Sugar single svg: - 12g protein & 5g carb Dannon Ni[place] Light + Fit 1 single svg - 12g protein & 9g carb Oikos Pro single svg - 20g protein & 8g carb Oikos Triple Zero [place] Nonfat Yogurt 1 single svg - 15g protein & 7g carb :ratio, KETO Friendly Dairy Snack 1 single svg - 15g protein & 2g carb :ratio Protein 1 single svg - 25g protein & 8g carb Two Good Lowfat [place] Yogurt, Novinger, Lower Sugar - 12g protein & 2g carb Yoplait Protein 1 single svg 15gm protein & 5gm carb Dairy Free - [place] unsweetened [place] almond/soy 15 gm protein & 3 gm carb Dairy Free - True Goodness by Don coconut-based yogurt alternative 1 gm protein 1 gm net carb 180 kalin Cheese each oz Brie 5.9g protein & 0.1g carb Cheddar 7g protein & 0.4g carb Irvin 6.7g protein & 0.7g carb Cream Cheese 1.7g protein & 1.2g carb Feta 4g protein & 1.2g carb Mozzarella 6.3g protein & 0.6g carb Parmesan 10g protein & 0.9g carb Bhutanese 7.6g protein & 1.5g carb Cottage Cheese 1/2 c Break[place] 2% 13g protein 7g carb Becky 2% 13g protein 5 g carb Good Culture 2% 14g protein 3g carb [place] s Low Fat 12g protein & 4g carb Legumes Lentils cup 9g protein & 20g carb Gayle beans cup 7g protein & 20g carb Kidney, Black, [place], Cannellini beans cup 8g protein & 20g carb Soybeans 1/2 c 14g complete protein & 8.5g carb [place] milk, unsweetened 8 oz 1g protein & 2g carb Soy milk 8 oz 3.5g protein & 1.6g carb Tofu 1/2 cup 10g protein & 2.3g carb Peanut butter, natural 2 Tbsp 7-8g protein & 4g net carbs, 190 calories PB2 powder 2 Tbsp 6g protein & 5g carb Nuts and Seeds per oz Almonds - 5.9g protein & 6.1g carb [place] Nuts - 4.0g protein & 3.4g carb Cashews - 5.1g protein & 9.2g carb Hazelnuts - 4.2g protein & 4.7g carb Hemp seeds/hearts 3 T/30 gms - 9.5 gm complete protein and 2.5 gm carb Peanuts - 7g protein & 4.6g carb Pecans - 2.6g protein & 3.9g carb Pistachios - 5.8g protein & 7.8g carb Pumpkin Seeds - 6.9g protein & 5g carb [place] Seeds - 5.8g protein & 5.6g carb Walnuts - 4.3g protein & 3.8g carb Edamame Beans (soybean) snack 1 pack 11 gm complete protein 2 carb Meal replacements: Meal Replacements Plant-based protein bars Meal replacements. One option that works for some people is to use meal replacements, as in the DiRECT and Look AHEAD trials.The available options in Look AHEAD included shakes, bars, and meals from a variety of companies ([employer], [employer], OptiVeriShow, and SlimVeriShow). The calorie content was 150 to 220 ca lories, depending on the product. People who used meal replacements 12 times a week instead of preparing their own meals lost about 11% of their weight in the first year, whereas those who used just two per week lost about 6% of their weight. Keep in mind, though, that people in the trial who used meal replacements also tended to consume a healthier diet over all; they were more likely to have met their goals for dietary fat, fruits and vegetables, and dairy foods, and to have cut back on sweets, than those who didn t use meal replacements. Similarly, in the DiRECT trial, participants consumed special nutritionally complete shakes and soups (the Counterweight-Plus program) for the first 12 weeks.If you opt for meal-replacement drinks, bars, or frozen entrees, here are some criteria to look for: calories, 150 to 300 fat, 3 to 10 grams protein, > 20 grams sugar < 5 g Meal replacements are typically fortified with vitamins and minerals and contain some fiber. Because they are calorie controlled, the amount of added sugars is usually minimal. If you want to try this approach to boost weight loss, ask your dietitian or another member of your health care team how to incorporate the replacements into your meal planning and discuss whether you might need to reduce your doses of diabetes medications to prevent hypoglycemia (low blood sugar) as you cut calories andlose weight. It is important to find a meal- replacement product that suits your taste. If you prefer not to consume processed foods, you can make your own portion-controlled versions. Note that meal replacements don t work for everyone. While some people like meal- replacement shakes, bars, and soups and find them to be a convenient way to sustain a reduced calorie intake over time, others don t feel satisfied drinking them and often end up simply adding them to what they d normally eat--which co uld lead to weight gain. What s more, some people have a hard time readjusting to eating real food after they stop using meal replacements. VEGAN PROTEIN LIST SOY Tempeh: 17g protein 8g carbohydrate in 1/2 cup, Shelled Edamame: 9g Protein, 8g carbohydrate in 1/2cup Tofu: 9g protein,2 g carbohydrate per 3oz Soy Milk: 7g Protein, 15g carbohydrate in 1 cup Nutritional Yeast 8g Protein, 5g Carbohydrate in 2TBSP (16g) Seitan 30g Protein, 6.8g Carbohydrate in 1/2 cup Whole Grains Quinoa: 8g protein in 1cup Wild rice 6.5g protein in 1 cup Legumes Lentils 12g protein, 23g carbohydrate in 1/2 cup cooked Chickpea 6g protein, 17g carbohydrate in 1/2 cup cooked Black Beans 7g protein, 19g carbohydrate in 1/2 cup cooked Green Split peas 8g protein, 22g carbohydrate in 1/2 cup cooked Gayle Bella 8g protein, 20g carbohydrate in 1/2 cup cooked Seeds Pumpkin 8g protein, 3 carbohydrate in 1/4cup Hemp 9g protein, 3 carbohydrate in 3 Tablespoons Tahini 10g protein, 3 carbohydrate in 2 Tablespoons [place] 5g protein, 10g carbohydrate in 2 tablespoons Nuts Almonds 6g protein, 6g carbohydrate in 1/4cup Walnuts 4g protein, 4g carbohydrate in 1/4cup Cashew 4g protein, 9g carbohydrate in 1/4cup Peanuts 8g protein, 5g carbohydrate in 1/4cup Peanut butter 7g protein, 6g carbohydrate in 2 TBSP Potatoes Russet potato- 1 medium (173g) 4.5g protein, 37g carbohydrate Red Potato- 1 large (299g) 6.9g protein, 59g carbohydrate Sweet Potato - 1 medium (114g) 2.3g protein, 24g carbohydrate Sprouted grain bread Dennis bread- per slice 5g protein, 15g carbohydrate Vegetables Artichoke- 4.2g protein, 13g carbohydrate in 1 medium (128g) Green Peas- 8g protein, 21g carbohydrates in 1 cup Brussel Sprouts - 3g protein, 8g carbohydrate in 1 cup [place]- 4.3g protein, 19g carbohydrate in 1/2cup Spinach- 1g protein, 1g carbohydrate in 1 cup 3g carb8g carb 20g protein, 4 carbohydrate per scoop QUICK VEGAN PROTEIN PRODUCTS/SNACKS: NOT high in protein- BUT LOW CARB SUBSTITUTE FOR NOODLES 14 Ways to Lower Your Insulin Levels Insulin is an extremely important hormone that s produced by your pancreas. It has many functions, such as allowing your cells to take in sugar from your blood for energy. However, living with chronically high levels of insulin, also known as hyperinsulinemia, can lead to excessive weight gain and serious health problems like heart disease and cancer (1, 2, 3). High blood insulin levels can also cause your cells to become resistant to the hormone s effects. This condition, known as insulin resistance, leads your pancreas to produce even more insulin, creating a precarious cycle (4). If your doctor has advised you to lower your insulin levels, here are 14 things you can do. 1. Follow a lower-carb eating plan Of the three macronutrients -- carbohydrates, protein, and fat -- carbs raise blood sugar and insulin levels the most. Even though carbs are an essential part of most balanced, nutritious diets, lower-carb diets can be very effective for losing weight and managing diabetes (5, 6). Many studies have confirmed the effectiveness of lower-carb eating plans for lowering insulin levels and increasing insulin sensitivity, especially when compared with other diets. People living with health conditions characterized by insulin resistance, such as metabolic syndrome and polycystic ovary syndrome (PCOS), may experience a dramatic lowering of insulin with carb restriction (6, 7, 8). In a smaller study from 2008, people with metabolic syndrome were randomized to receive either a low fat or low carb diet containing 1,500 calories (9). Insulin levels dropped by an average of 50% in the low carb group, compared with 19% in the low fatgroup. Those on the low carb diet also lost more weight (9). In another small study from 2012, when people with PCOS ate a lower-carb diet containing enough calories to maintain their weight, they experienced greater reductions in insulin levels than when theyate a higher-carb diet (10). Summary While carbohydrates are typically an important part of a balanced diet, lower- carb diets have been shown to increase insulin sensitivity and reduce insulin levels in people living with obesity, diabetes, metabolic syndrome, and PCOS. 2. Consider supplementing with apple cider vinegar Apple cider vinegar (ACV) may help prevent insulin and blood sugar spikes after eating, particularly when consumed with high carbohydrate foods (11). One review found that consuming 2-6 tablespoons of vinegar daily appears to improve glycemic response to carbohydrate-rich meals. It s important to note, however, that this review incorporated studies that used other forms of vinegar in addition to ACV (12). Another review of studies found that consuming vinegar with meals affects both blood glucose and insulin levels. Individuals consuming vinegar with meals had lower blood sugar and insulin levels thanthose who didn t consume it. But again, this review did not specify ACV (13). A third review of studies from 2020 specifically targeted ACV analyzed its effect on glycemic control in adults (14). The researchers found that consuming ACV significantly decreased fasting blood sugar and HbA1C (a measure of blood sugar over time). However, ACV did not seem to affect fasting insulin levels or insulin resistance (14). Summary Vinegar may help ease high blood sugar and insulin levels after meals, particularly when those meals are high in carbs. However, results are mixed and more research is needed -- especially around apple cider vinegar in particular. 3. Keep an eye on portion sizes Your pancreas releases different amounts of insulin depending on the type of food you eat, but eating a large amount of foods that cause your body to produce extra insulin can eventually lead to hyperinsulinemia. This is of particular concern for people who are already living with obesity and insulin resistance(15). In one small 2017 study, otherwise healthy people classified as having either a normal BMI or a higher BMI each ate meals with different glycemic loads for a few days. Researchers found that while the meals with a higher glycemic load (those with more sugar and carbs) spiked everyone s blood sugar, the blood sugar of individuals with BMIs in the obese category stayed elevated longer (16). Consuming fewer calories has consistently been shown to increase insulin sensitivity and decrease insulin levels in people living with excess weight and obesity, regardless of the type of diet they consume (17, 18, 19, 20). One small study from 2012 analyzed different weight loss methods in 157 people living with metabolic syndrome, which is a group of conditions that include a larger waist circumference and high blood sugar (19). The researchers found that fasting insulin levels decreased by 16% in the group that practiced calorie restriction and 12% in the group that practiced portion control (19, 21). Even though calorie restriction has been shown to ease excess insulin levels, It s a good idea to seek the help of a hand etcher helper or doctor before making any dietary changes to be sure you aren t missing out on any important macro or micronutrients. Summary Reducing calorie intake can help lower insulin levels in people living with excess weight or obesity who have type 2 diabetes or metabolic syndrome. 4. Lower your intake of all forms of sugar Sugar may very well be the most important ingredient to keep an eye on if you re trying to lower your insulin levels. Diets high in added sugar are associated with insulin resistance and may promote the development of metabolic disease (22). In a small study from 2008, otherwise healthy people were tasked with eating an increased amount ofeither candy (sugar) or peanuts (fat). The candy group experienced a 31% increase in fasting insulin levels, while the peanut group had a 12% increase (23). In another small study from 2013, otherwise healthy adults consumed jams containing varying amountsof sugar. The adults who consumed high sugar jams saw their insulin levels rise significantly as compared with those who ate the lower-sugar jams (24). Fructose is a type of natural sugar found in table sugar, honey, fruit, corn syrup, agave, and syrup. While some studies have singled out fructose as particularly harmful for blood sugar control and insulin resistance, there isn t enough evidence to suggest fructose is more harmful than other types of sugars when consumed in moderate amounts (25). Indeed, one study found that replacing glucose or sucrose with fructose actually lowered peak post-meal blood sugar and insulin levels, especially in people with prediabetes or type 1 or type 2 diabetes (26). Summary A high intake of sugar in any form has been shown to increase insulin levels and promote insulin resistance if consumed for a length of time. 5. Prioritize physical activity Engaging in regular physical activity can have powerful insulin-lowering effects. Aerobic exercise appears to be very effective at increasing insulin sensitivity in people living with obesity or type 2 diabetes (27, 28, 29). One study looked at the effect of sustained aerobic exercise versus high intensity interval training on metabolic fitness in men with obesity (29). Although both groups experienced improvements in fitness, only the group that performed sustained aerobic activity experienced significantly lower insulin levels (29). There s also research showing that resistance training can help decrease insulin levels in older adults and people who are more sedentary (30, 31). And lastly, combining aerobic and resistance exercise may be the best choice when it comes to positively affecting insulin sensitivity and levels (32, 33). Summary Aerobic exercise, strength training, or a combination of both may help lower insulin levels and increase insulin sensitivity. 6. Try adding cinnamon to foods and beverages Cinnamon is a delicious spice loaded with health-promoting antioxidants. Recent studies suggest that both individuals living with insulin resistance and those with relatively normal insulin levels who supplement with cinnamon may experience enhanced insulin sensitivity and decreased insulin levels (34, 35, 36). In one small, well-designed study, women with PCOS who took 1.5 grams of cinnamon powder daily for 12 weeks had significantly lower fasting insulin and insulin resistance than women who took a placebo (35). In another small, well-designed study, individuals living with type 2 diabetes who took 500 mg of cinnamon powder twice daily for 3 months had lower fasting insulin and insulin resistance than those who took a placebo (34). Improvements in insulin and insulin sensitivity were most pronounced for individuals with higher BMIs (34). It s important to note that there is no recommended dose of cinnamon that has been tested across the board, and not all studies have found that cinnamon helps lower insulin levels or increases insulin sensitivity. Cinnamon s effects may vary from person to person (37, 38). Summary Some studies have found that adding cinnamon to foods or beverages lowers insulin levels and increases insulin sensitivity, but results are mixed. 7. When eating carbs, choose complex carbs While complex carbs are an important part of a nutritious diet, refined or simple carbs don t usually contain a lot of fiber or micronutrients and are digested very quickly. Refined carbs include simple sugars as well as grains that have had the fibrous parts removed. Someexamples are cereal with added sugar, highly processed fast foods, foods made with refined flour like certain breads and pastries, and white rice (39). Regularly consuming refined carbs can lead to several health problems, including high insulin levels and weight gain (40, 41). Furthermore, refined carbs have a high glycemic index (GI). The GI is a scale that measures a specific food s capacity to raise blood sugar. Glycemic load takes into account a food s glycemic index and the amount of digestible carbs contained in a serving (42). Some studies comparing foods with different glycemic loads have found that eating a pdqe-hwifckoq-tecc food raises insulin levels more than eating the same portion of a zft-spyxaugg-blrq food, even if the carb contents of the two foods are similar (43, 44). However, other studies comparing ivoi-dyvyizwa-wbga and fevy-kwonaiol-gealc diets with epj-fpoijaat-jqcb and noq-ixckgkwk-jwier diets have found no difference in their effects on insulin levels or insulin sensitivity (45, 46). Summary Replacing refined carbs, which are digested quickly and can sharply raise blood sugar, with slower-digesting complex carbs and whole grains may help lower insulin levels. 8. Increase your overall activity level Living an active lifestyle can help reduce insulin levels. A 2005 study of more than 1,600 people found that the most sedentary people (who didn t spend free time engaged in moderate or vigorous activity) were nearly twice as likely to have metabolic syndrome as those who did at least 150 minutes of moderate activity per week (47). Other studies have shown that getting up and walking around, rather than sitting for prolonged periods, can help keep insulin levels from spiking after a meal (48). One study looked at the effect of physical activity on insulin levels in men with extra weight who were at risk for type 2 diabetes. Those who took the most steps per day had the greatest reduction in insulin levels and belly fat compared with those who took the fewest steps (49). Summary Avoiding sitting for prolonged periods and increasing the amount of time you spend walking or doingother moderate activities may help reduce insulin levels. 9. Consider intermittent fasting Intermittent fasting (an eating plan where you have set hours for eating and set hours for fasting during a 24-hour period) has been popping up in headlines recently, specifically around its possibleweight loss benefits. Research also suggests intermittent fasting may help reduce insulin levels as effectively as or more effectively than daily calorie restriction (50, 51). A 2019 study compared alternate-day fasting with calorie restriction in adults with extra weight orobesity and insulin resistance (52). Those using alternate-day fasting for 12 months had greater reductions in fasting insulin and insulin resistance than those who restricted their calorie intake, as well as those in the control group (52). Although many people find intermittent fasting beneficial and enjoyable, it doesn t work for everyone and may cause problems in some people. A doctor or hand etcher helper can help you figure out whether intermittent fasting is right for you and how to do it safely. Summary Intermittent fasting may help reduce insulin levels. However, more research needs to be done, and this way of eating may not suit everyone. 10. Increase soluble fiber intake Soluble fiber provides a number of health benefits, including aiding in weight loss and reducing blood sugar levels. After you eat, the soluble fiber in food absorbs water and forms a gel, which slows down the movement of food through your digestive tract. This promotes feelings of fullness and keeps your blood sugar and insulin from rising too quickly after a meal (53, 54). One observational study from 2013 found that individuals assigned female at who ate the most soluble fiber were half as likely to be insulin-resistant as individuals assigned female who ate theleast soluble fiber (55). Soluble fiber also helps feed the friendly bacteria that live in your colon, which may improve gut health and reduce insulin resistance. In a 6-week controlled study of older women with obesity, those who took flaxseed (which contains soluble fiber) experienced greater increases in insulin sensitivity and lower insulin levels than women who took a probiotic or placebo (56). Overall, fiber from whole foods appears to be more effective at reducing insulin than fiber in supplement form, although results are mixed. One study found that insulin decreased when people consumedblack beans but not when they took a fiber supplement (57). Summary Soluble fiber, especially from whole foods, has been shown to increase insulin sensitivity and lower insulin levels, particularly in people living with obesity or type 2 diabetes. 11. Concentrate on weight loss, if advised The distribution of fat throughout your body is determined by age, sex hormones, and genetic variation (58). An overabundance of belly fat -- also known as visceral or abdominal fat -- in particular is linkedto many health issues. Visceral fat can promote inflammation and insulin resistance, which drives hyperinsulinemia (59, 60, 61). A small study from 2013 suggests that losing visceral fat can lead to increased insulin sensitivityand lower insulin levels (62). Interestingly, another small study from 2013 found that people who lost abdominal fat retained the benefits for insulin sensitivity even after regaining a portion of the belly fat (63). There is no way to specifically target visceral fat when losing weight. However, visceral fat loss is linked to subcutaneous fat loss, so when you lose weight in general, you ll likely also lose visceral fat. Furthermore, studies show that when you lose weight, you lose a higher percentage of visceral fat than fat throughout the rest of your body (64). If your doctor has advised you to lose weight, talk with them about the best weight loss program for you. Summary If your doctor advises you to do so, losing visceral fat can increase insulin sensitivity and help reduce your insulin levels. While you can t target visceral fat specifically, when you lose weight overall, you lose visceral fat as well. 12. Incorporate green tea into your diet Green tea contains high amounts of an antioxidant known as epigallocatechin gallate (EGCG), which may help fight insulin resistance (65, 66, 67). In a 2016 study, postmenopausal individuals living with obesity and high insulin levels who took green tea extract experienced a small decrease in insulin over 12 months, while those who took a placebo had increased insulin levels following the intervention (66). In a 2013 review, researchers reported that green tea appeared to significantly lower fasting insulin levels in high quality studies (67). However, there are other high quality studies on green tea supplementation that have not shown a reduction in insulin levels or increased insulin sensitivity (68). Summary Several studies have found that green tea may increase insulin sensitivity and decrease insulin levels, but results are mixed. 13. Eat more fatty fish There are many reasons to consume fatty fish like salmon, sardines, mackerel, vann, and anchovies. They provide high quality protein and are some of the best sources of long-chain omega-3 fats, which offer many health benefits (69). Studies have shown that the omega-3s in fatty fish may also help reduce insulin resistance in people living with obesity, gestational diabetes, and PCOS (70, 71, 72). According to the U.[place] 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 Health and Human Service s Dietary Guidelines for Americans, adults can safely consume at least 8 ounces of seafood per week (based on a 2,000-calorie diet). Youngchildren should eat less. People who are or should eat 8-12 ounces of a variety of seafood per week, choosing options that are lower in mercury (73). While eating fish is typically recommended over taking supplements for a variety of reasons (more omega-3s aren t always better, and fish has additional nutrients and vitamins), fish oil supplements are sold widely in stores and are often used in studies. These supplements contain the same long-chain omega-3 fats as the fish itself, but the effective dosage has not yet been determined (74). Despite the need for more research, fish oil has been shown to support healthy blood sugar. One small 2011 study in individuals with PCOS found a significant 8.4% decrease in insulin levels in a group who took fish oil, compared with a group who took a placebo (71). Another study from 2013 found that children and adolescents with obesity who took fish oil supplements significantly reduced their insulin resistance and triglyceride levels (72). Finally, a review of 17 studies found that taking fish oil supplements is associated with increasedinsulin sensitivity in people living with metabolic disorders (75). Summary The long-chain omega-3s in fatty fish may help reduce insulin resistance and insulin levels, especially in those with metabolic disorders. While fish oil supplements are sold widely and often used instudies, the effective dosing has not yet been determined. 14. Get the right amount and type of protein Consuming adequate protein at meals can be beneficial for controlling your weight and insulin levels. In a small study from 2014, premenopausal individuals living with obesity had lower insulin levels after consuming a high protein breakfast compared with a low protein breakfast. They also felt farias and ate fewer calories at lunch (76). However, protein stimulates insulin production so that your muscles can take up amino acids. Therefore, eating very high amounts over a prolonged period may lead to higher insulin levels in otherwisehealthy individuals (77). A larger study from 2018 sheds some light on these diverging results: When it comes to protein, dietary patterns are important. For instance, researchers found that individuals who ate a majority of plant proteins were less likely to develop type 2 diabetes, while individuals who ate a lot of protein in the form of red meat had a greater likelihood of living with or developing type 2 diabetes (78). So while protein is important, eating a variety of protein that isn t overly processed and is nutrient-dense is even more important. https://www.healthline.com/nutrition/93-cptk-wo-lower-insulin A Short Walk After Meals Is All It Takes to Lower Blood Sugar Researchers studying older adults with pre-diabetes found that 15 minutes of gbcg-vy-avxyjbqy exercise after every meal curbed risky blood sugar spikes all day. Seniors are more prone to developing diabetes, but a little exercise could make a big difference. Astudy published today in Diabetes Care found that three short walks each day after meals were as effective at reducing blood sugar over 24 hours as a single 45-minute walk at the same moderate pace. Even better, taking an evening constitutional was found to be much more effective at lowering bloodsugar following supper. The evening meal, often the largest of the day, can significantly raise 24-hour glucose levels. The innovative exercise science study was conducted at the Clinical Exercise Physiology Laboratory at the [facility] ([facility]) using whole room calorimeters. Jacquelyn Cleveland, Ph.D., chair of the [facility] 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 Exercise Science, led the study. These findings are good news for people in their 70s and 80s who may feel more capable of engaging in intermittent physical activity on a daily basis, Cristofer said in a press release. Putting Humans in a Box to Measure Their Energy Use The whole room calorimeter (WRM), which looks like a very small hotel room, is a controlled-air environment for human study that allows scientists to calculate a person s energy expenditure by testing samples of air. The balance of oxygen consumed and carbon dioxide produced varies according to theactivity level of the person in the room. The WRM also measures the body s use of different food fuels, such as carbohydrates, proteins, and fats. The 10 study participants spent three 48-hour periods in the small calorimeter rooms. Each room wasequipped with a bed, toilet, sink, treadmill, television, and computer, leaving little room to movearound. Participants ate standardized meals, and their blood sugar levels were monitored continuously usingblood tests. The first day in the WRM served as a control period, with no exercise. On the second day, participants either walked at a moderate pace on the treadmill for 15 minutes after each meal, or for 45 minutes in either the late morning or before supper. The researchers observed that the evening post-meal walk was the most effective in lowering blood sugar levels for a full 24 hours. The typical exaggerated rise in blood sugar after supper--which often lasts well into the night andearly morning--was curbed significantly as soon as the participants started to walk on the treadmill, the study authors said. How Age Affects Insulin Resistance An estimated 79 million Americans have pre-diabetes, according to the National Diabetes Education Program run by the National Institutes of [employer]. But many people have no idea they are at risk. According to Cristofer, older people may be particularly susceptible to poor blood sugar control after meals because inactive muscles contribute to insulin resistance. The problem is compounded by slow or low insulin secretion by the pancreas, which often occurs as the body ages. Post-meal high blood sugar is a salazar risk factor in the progression from impaired glucose tolerance (pre-diabetes) to type 2 diabetes and cardiovascular disease, Cristofer explained. Other studies have suggested that weight loss and exercise can prevent type 2 diabetes. The noe gutierrezs is the first study to examine short bouts of physical activity timed around the risky period following meals--a time when blood sugar can rise rapidly and potentially cause damage to internal organs and blood vessels. The muscle contractions connected with short walks were immediately effective in blunting the potentially damaging elevations in post-meal blood sugar commonly observed in older people, Cristofer said. If the findings of this small study hold up to further testing, it could lead to an inexpensive prevention strategy for pre-diabetes, which can develop over time into type 2 diabetes. Back in the day, it was de rigueur to take a morning, noon, and evening walk. The time has come to get up from the table, tie on those walking shoes, and take a little stroll around the block. [email or web address]-[email or web address]-[email or web address]-[email or web address]-bj-[email or web address]-bloo [email or web address]-fedxc-[email or web address]-560781 14 Ways to Lower Your Insulin Levels Insulin is an extremely important hormone that s produced by your pancreas. It has many functions, such as allowing your cells to take in sugar from your blood for energy. However, living with chronically high levels of insulin, also known as hyperinsulinemia, can lead to excessive weight gain and serious health problems like heart disease and cancer (1, 2, 3). High blood insulin levels can also cause your cells to become resistant to the hormone s effects. This condition, known as insulin resistance, leads your pancreas to produce even more insulin, creating a precarious cycle (4). If your doctor has advised you to lower your insulin levels, here are 14 things you can do. 1. Follow a lower-carb eating plan Of the three macronutrients -- carbohydrates, protein, and fat -- carbs raise blood sugar and insulin levels the most. Even though carbs are an essential part of most balanced, nutritious diets, lower-carb diets can be very effective for losing weight and managing diabetes (5, 6). Many studies have confirmed the effectiveness of lower-carb eating plans for lowering insulin levels and increasing insulin sensitivity, especially when compared with other diets. People living with health conditions characterized by insulin resistance, such as metabolic syndrome and polycystic ovary syndrome (PCOS), may experience a dramatic lowering of insulin with carb restriction (6, 7, 8). In a smaller study from 2008, people with metabolic syndrome were randomized to receive either a low fat or low carb diet containing 1,500 calories (9). Insulin levels dropped by an average of 50% in the low carb group, compared with 19% in the low fatgroup. Those on the low carb diet also lost more weight (9). In another small study from 2012, when people with PCOS ate a lower-carb diet containing enough calories to maintain their weight, they experienced greater reductions in insulin levels than when theyate a higher-carb diet (10). Summary While carbohydrates are typically an important part of a balanced diet, lower- carb diets have been shown to increase insulin sensitivity and reduce insulin levels in people living with obesity, diabetes, metabolic syndrome, and PCOS. 2. Consider supplementing with apple cider vinegar Apple cider vinegar (ACV) may help prevent insulin and blood sugar spikes after eating, particularly when consumed with high carbohydrate foods (11). One review found that consuming 2-6 tablespoons of vinegar daily appears to improve glycemic response to carbohydrate-rich meals. It s important to note, however, that this review incorporated studies that used other forms of vinegar in addition to ACV (12). Another review of studies found that consuming vinegar with meals affects both blood glucose and insulin levels. Individuals consuming vinegar with meals had lower blood sugar and insulin levels thanthose who didn t consume it. But again, this review did not specify ACV (13). A third review of studies from 2020 specifically targeted ACV analyzed its effect on glycemic control in adults (14). The researchers found that consuming ACV significantly decreased fasting blood sugar and HbA1C (a measure of blood sugar over time). However, ACV did not seem to affect fasting insulin levels or insulin resistance (14). Summary Vinegar may help ease high blood sugar and insulin levels after meals, particularly when those meals are high in carbs. However, results are mixed and more research is needed -- especially around apple cider vinegar in particular. 3. Keep an eye on portion sizes Your pancreas releases different amounts of insulin depending on the type of food you eat, but eating a large amount of foods that cause your body to produce extra insulin can eventually lead to hyperinsulinemia. This is of particular concern for people who are already living with obesity and insulin resistance(15). In one small 2017 study, otherwise healthy people classified as having either a normal BMI or a higher BMI each ate meals with different glycemic loads for a few days. Researchers found that while the meals with a higher glycemic load (those with more sugar and carbs) spiked everyone s blood sugar, the blood sugar of individuals with BMIs in the obese category stayed elevated longer (16). Consuming fewer calories has consistently been shown to increase insulin sensitivity and decrease insulin levels in people living with excess weight and obesity, regardless of the type of diet they consume (17, 18, 19, 20). One small study from 2011 analyzed different weight loss methods in 157 people living with metabolic syndrome, which is a group of conditions that include a larger waist circumference and high blood sugar (19). The researchers found that fasting insulin levels decreased by 16% in the group that practiced calorie restriction and 12% in the group that practiced portion control (19, 21). Even though calorie restriction has been shown to ease excess insulin levels, It s a good idea to seek the help of a hand etcher helper or doctor before making any dietary changes to be sure you aren t missing out on any important macro or micronutrients. Summary Reducing calorie intake can help lower insulin levels in people living with excess weight or obesity who have type 2 diabetes or metabolic syndrome. 4. Lower your intake of all forms of sugar Sugar may very well be the most important ingredient to keep an eye on if you re trying to lower your insulin levels. Diets high in added sugar are associated with insulin resistance and may promote the development of metabolic disease (22). In a small study from 2008, otherwise healthy people were tasked with eating an increased amount ofeither candy (sugar) or peanuts (fat). The candy group experienced a 31% increase in fasting insulin levels, while the peanut group had a 12% increase (23). In another small study from 2013, otherwise healthy adults consumed jams containing varying amountsof sugar. The adults who consumed high sugar jams saw their insulin levels rise significantly as compared with those who ate the lower-sugar jams (24). Fructose is a type of natural sugar found in table sugar, honey, fruit, corn syrup, agave, and syrup. While some studies have singled out fructose as particularly harmful for blood sugar control and insulin resistance, there isn t enough evidence to suggest fructose is more harmful than other types of sugars when consumed in moderate amounts (25). Indeed, one study found that replacing glucose or sucrose with fructose actually lowered peak post-meal blood sugar and insulin levels, especially in people with prediabetes or type 1 or type 2 diabetes (26). Summary A high intake of sugar in any form has been shown to increase insulin levels and promote insulin resistance if consumed for a length of time. 5. Prioritize physical activity Engaging in regular physical activity can have powerful insulin-lowering effects. Aerobic exercise appears to be very effective at increasing insulin sensitivity in people living with obesity or type 2 diabetes (27, 28, 29). One study looked at the effect of sustained aerobic exercise versus high intensity interval training on metabolic fitness in men with obesity (29). Although both groups experienced improvements in fitness, only the group that performed sustained aerobic activity experienced significantly lower insulin levels (29). There s also research showing that resistance training can help decrease insulin levels in older adults and people who are more sedentary (30, 31). And lastly, combining aerobic and resistance exercise may be the best choice when it comes to positively affecting insulin sensitivity and levels (32, 33). Summary Aerobic exercise, strength training, or a combination of both may help lower insulin levels and increase insulin sensitivity. 6. Try adding cinnamon to foods and beverages Cinnamon is a delicious spice loaded with health-promoting antioxidants. Recent studies suggest that both individuals living with insulin resistance and those with relatively normal insulin levels who supplement with cinnamon may experience enhanced insulin sensitivity and decreased insulin levels (34, 35, 36). In one small, well-designed study, women with PCOS who took 1.5 grams of cinnamon powder daily for 12 weeks had significantly lower fasting insulin and insulin resistance than women who took a placebo (35). In another small, well-designed study, individuals living with type 2 diabetes who took 500 mg of cinnamon powder twice daily for 3 months had lower fasting insulin and insulin resistance than those who took a placebo (34). Improvements in insulin and insulin sensitivity were most pronounced for individuals with higher BMIs (34). It s important to note that there is no recommended dose of cinnamon that has been tested across the board, and not all studies have found that cinnamon helps lower insulin levels or increases insulin sensitivity. Cinnamon s effects may vary from person to person (37, 38). Summary Some studies have found that adding cinnamon to foods or beverages lowers insulin levels and increases insulin sensitivity, but results are mixed. 7. When eating carbs, choose complex carbs While complex carbs are an important part of a nutritious diet, refined or simple carbs don t usually contain a lot of fiber or micronutrients and are digested very quickly. Refined carbs include simple sugars as well as grains that have had the fibrous parts removed. Someexamples are cereal with added sugar, highly processed fast foods, foods made with refined flour like certain breads and pastries, and white rice (39). Regularly consuming refined carbs can lead to several health problems, including high insulin levels and weight gain (40, 41). Furthermore, refined carbs have a high glycemic index (GI). The GI is a scale that measures a specific food s capacity to raise blood sugar. Glycemic load takes into account a food s glycemic index and the amount of digestible carbs contained in a serving (42). Some studies comparing foods with different glycemic loads have found that eating a xgon-nynktjhi-hmgl food raises insulin levels more than eating the same portion of a qma-tychbdoc-kvtl food, even if the carb contents of the two foods are similar (43, 44). However, other studies comparing fqdn-bcwgthle-boxn and amhi-lliadosi-nobfb diets with bqj-txrdizvv-xnbn and lqc-vcxzjykr-pyosp diets have found no difference in their effects on insulin levels or insulin sensitivity (45, 46). Summary Replacing refined carbs, which are digested quickly and can sharply raise blood sugar, with slower-digesting complex carbs and whole grains may help lower insulin levels. 8. Increase your overall activity level Living an active lifestyle can help reduce insulin levels. A 2005 study of more than 1,600 people found that the most sedentary people (who didn t spend free time engaged in moderate or vigorous activity) were nearly twice as likely to have metabolic syndrome as those who did at least 150 minutes of moderate activity per week (47). Other studies have shown that getting up and walking around, rather than sitting for prolonged periods, can help keep insulin levels from spiking after a meal (48). One study looked at the effect of physical activity on insulin levels in men with extra weight who were at risk for type 2 diabetes. Those who took the most steps per day had the greatest reduction in insulin levels and belly fat compared with those who took the fewest steps (49). Summary Avoiding sitting for prolonged periods and increasing the amount of time you spend walking or doingother moderate activities may help reduce insulin levels. 9. Consider intermittent fasting Intermittent fasting (an eating plan where you have set hours for eating and set hours for fasting during a 24-hour period) has been popping up in headlines recently, specifically around its possibleweight loss benefits. Research also suggests intermittent fasting may help reduce insulin levels as effectively as or more effectively than daily calorie restriction (50, 51). A 2019 study compared alternate-day fasting with calorie restriction in adults with extra weight orobesity and insulin resistance (52). Those using alternate-day fasting for 12 months had greater reductions in fasting insulin and insulin resistance than those who restricted their calorie intake, as well as those in the control group (52). Although many people find intermittent fasting beneficial and enjoyable, it doesn t work for everyone and may cause problems in some people. A doctor or hand etcher helper can help you figure out whether intermittent fasting is right for you and how to do it safely. Summary Intermittent fasting may help reduce insulin levels. However, more research needs to be done, and this way of eating may not suit everyone. 10. Increase soluble fiber intake Soluble fiber provides a number of health benefits, including aiding in weight loss and reducing blood sugar levels. After you eat, the soluble fiber in food absorbs water and forms a gel, which slows down the movement of food through your digestive tract. This promotes feelings of fullness and keeps your blood sugar and insulin from rising too quickly after a meal (53, 54). One observational study from 2013 found that individuals assigned female at who ate the most soluble fiber were half as likely to be insulin-resistant as individuals assigned female who ate theleast soluble fiber (55). Soluble fiber also helps feed the friendly bacteria that live in your colon, which may improve gut health and reduce insulin resistance. In a 6-week controlled study of older women with obesity, those who took flaxseed (which contains soluble fiber) experienced greater increases in insulin sensitivity and lower insulin levels than women who took a probiotic or placebo (56). Overall, fiber from whole foods appears to be more effective at reducing insulin than fiber in supplement form, although results are mixed. One study found that insulin decreased when people consumedblack beans but not when they took a fiber supplement (57). Summary Soluble fiber, especially from whole foods, has been shown to increase insulin sensitivity and lower insulin levels, particularly in people living with obesity or type 2 diabetes. 11. Concentrate on weight loss, if advised The distribution of fat throughout your body is determined by age, sex hormones, and genetic variation (58). An overabundance of belly fat -- also known as visceral or abdominal fat -- in particular is linkedto many health issues. Visceral fat can promote inflammation and insulin resistance, which drives hyperinsulinemia (59, 60, 61). A small study from 2013 suggests that losing visceral fat can lead to increased insulin sensitivityand lower insulin levels (62). Interestingly, another small study from 2013 found that people who lost abdominal fat retained the benefits for insulin sensitivity even after regaining a portion of the belly fat (63). There is no way to specifically target visceral fat when losing weight. However, visceral fat loss is linked to subcutaneous fat loss, so when you lose weight in general, you ll likely also lose visceral fat. Furthermore, studies show that when you lose weight, you lose a higher percentage of visceral fat than fat throughout the rest of your body (64). If your doctor has advised you to lose weight, talk with them about the best weight loss program for you. Summary If your doctor advises you to do so, losing visceral fat can increase insulin sensitivity and help reduce your insulin levels. While you can t target visceral fat specifically, when you lose weight overall, you lose visceral fat as well. 12. Incorporate green tea into your diet Green tea contains high amounts of an antioxidant known as epigallocatechin gallate (EGCG), which may help fight insulin resistance (65, 66, 67). In a 2016 study, postmenopausal individuals living with obesity and high insulin levels who took green tea extract experienced a small decrease in insulin over 12 months, while those who took a placebo had increased insulin levels following the intervention (66). In a 2013 review, researchers reported that green tea appeared to significantly lower fasting insulin levels in high quality studies (67). However, there are other high quality studies on green tea supplementation that have not shown a reduction in insulin levels or increased insulin sensitivity (68). Summary Several studies have found that green tea may increase insulin sensitivity and decrease insulin levels, but results are mixed. 13. Eat more fatty fish There are many reasons to consume fatty fish like salmon, sardines, mackerel, vann, and anchovies. They provide high quality protein and are some of the best sources of long-chain omega-3 fats, which offer many health benefits (69). Studies have shown that the omega-3s in fatty fish may also help reduce insulin resistance in people living with obesity, gestational diabetes, and PCOS (70, 71, 72). According to the [place]. 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 Health and Human Service s Dietary Guidelines for Americans, adults can safely consume at least 8 ounces of seafood per week (based on a 2,000-calorie diet). Youngchildren should eat less. People who are or should eat 8-12 ounces of a variety of seafood per week, choosing options that are lower in mercury (73). While eating fish is typically recommended over taking supplements for a variety of reasons (more omega-3s aren t always better, and fish has additional nutrients and vitamins), fish oil supplements are sold widely in stores and are often used in studies. These supplements contain the same long-chain omega-3 fats as the fish itself, but the effective dosage has not yet been determined (74). Despite the need for more research, fish oil has been shown to support healthy blood sugar. One small 2011 study in individuals with PCOS found a significant 8.4% decrease in insulin levels in a group who took fish oil, compared with a group who took a placebo (71). Another study from 2013 found that children and adolescents with obesity who took fish oil supplements significantly reduced their insulin resistance and triglyceride levels (72). Finally, a review of 17 studies found that taking fish oil supplements is associated with increasedinsulin sensitivity in people living with metabolic disorders (75). Summary The long-chain omega-3s in fatty fish may help reduce insulin resistance and insulin levels, especially in those with metabolic disorders. While fish oil supplements are sold widely and often used instudies, the effective dosing has not yet been determined. 14. Get the right amount and type of protein Consuming adequate protein at meals can be beneficial for controlling your weight and insulin levels. In a small study from 2014, premenopausal individuals living with obesity had lower insulin levels after consuming a high protein breakfast compared with a low protein breakfast. They also felt farias and ate fewer calories at lunch (76). However, protein stimulates insulin production so that your muscles can take up amino acids. Therefore, eating very high amounts over a prolonged period may lead to higher insulin levels in otherwisehealthy individuals (77). A larger study from 2018 sheds some light on these diverging results: When it comes to protein, dietary patterns are important. For instance, researchers found that individuals who ate a majority of plant proteins were less likely to develop type 2 diabetes, while individuals who ate a lot of protein in the form of red meat had a greater likelihood of living with or developing type 2 diabetes (78). So while protein is important, eating a variety of protein that isn t overly processed and is nutrient-dense is even more important. https://www.[employer].com/nutrition/66-znrs-fr-lower-insulin HOW DOES CHRONIC STRESS AFFECT EATING PATTERNS? Chronic stress can affect the body s use of calories and nutrients in various ways. It raises the body s metabolic needs and increases the use and excretion of many nutrients. If one does not eat a nutritious diet, a deficiency may occur.Stress also creates a chain reaction of behaviors that can negatively affect eating habits, leading to other health problems down the road. Stress places a greater demand on the body for oxygen, energy, and nutrients. Yet people who experience chronic stress may crave comforting foods such as highly processed snacks or sweets, which can be high in unhealthy fats, sugar, and calories but low in micronutrients. People feeling stress may lack the time or motivation to prepare nutritious, balanced meals, or [place] or forget to eat meals. Stress can disrupt sleep by causing it web development consultant sleep or more frequent awakenings, which leads to fatigue during the day. In order to cope with daytime fatigue, people may use stimulants to increase energy such as with caffeine or high- calorie snack foods. The reverse may also be true that poor-qualitysleep is itself a stressor. Studies have found that sleep restriction causes a significant increasein cortisol levels. During acute stress, adrenaline suppresses the appetite.But with chronic stress, elevated levels ofcortisol may cause cravings, particularly for foods high in sugar, fat, and calories, which may then lead to weight gain. Cortisol favors the accumulation of fat in the belly area, also called central adiposity, which is associated with insulin resistance and an increased risk of type 2 diabetes, cardiovascular disease,and certain breast cancers.4,6-8 It also lowers levels of the hormone leptin (that promotes satiety) while increasing the hormone ghrelin (that increases appetite). https://cdn1.sph.[employer].edu/wp-content/uploads/sites//HeatlhyLivingGu svl29-52.1.pdf Educational Podcasts: The Dr. Ricks Show- Real Conversations about Health and Weight *November 26, 2023, how to determine your weight Gain Pattern to pick a weight loss medication or lifestyle plan *October 08, 2023, NEAT, Non- exercise activity thermogenesis - yes taking the stairs is good for you! *September 24, 2023, What to do when your weight loss plateaus * January 01, 2023 what you need to know about Carbohydrates and Weight *December 11, 2022 Protein why we need it and how to eat more Protein *November 20, 2022 Menopause and Weight Gain- All the Details with Dr. Lucia Stewart *October 30, 2022 The Science Behind Ultra Processed Food and Weight Gain *August 14, 2022 Effects of sleep and Stress of Weight and Health with Dr. Katerin Perez-Withers, DO * August 07, 2022 Recognizing and Resolving Emotional Eating with Dr. Stone Obesity: A Disease *August 07, 2022 Episode 80 Clinical conversations: The Role of Physical Activity in Weight Management * November 17, 2022 Episode 84 Clinical Conversations: NAFLD, The [place] Disease of Metabolic Syndrome *November 162019 Episode 20 Article Reviews: The Role Ultra Processed Diets Play in Weight Gain *October 29, 2019 Episode 21 Clinical Conversations: Breaking Weight Plateaus The Obesity Guide Podcast with Linn Stone MD The Drive, Romulo Shirley MD Conquer Your Weight, Tari Cross MD Docs who lift podcast, Shadi Gonzales and Royce Martínez Why People Diet, Lose Weight and Gain It All Back Plus 4 ways to break the cycle + maintain your weight loss You -- and your diet -- have been firing on all cylinders. The weight is melting off, and you re feeling your best. But then there is that seemingly inevitable backslide, with pound after pound creeping back on despite your best efforts. It s the ultimate Catch-22. But before you beat yourself up, helicopter pilot and obesity specialist Brijesh Arshad MD, has some welcome news: It s most likely not your fault. Your body is fighting to keep your weight as it was before the dieting, he says. But take heart -- it s possible to win the cardoza. What weight set point has to do with it Experts think as many as 80 to 95% of dieters gain back the weight they ve worked so hard to lose. Why? (WHY?!?) Dr. Arsahd says the culprit is your weight set point : the weight your body is programmed to be.Your weight set point is a combination of several factors, including your: Genetics. Hormones. Behavior. Environment. Weight set point and metabolism play for the same team: Your metabolism jarvis energy at a rate thatwill maintain your weight set point, even if that point is heavier than is healthy. Most of the time, weight gain is gradual, and that can raise your set point gradually, too, notes Dr. Arshad. But certain lifestyle changes can lower it. The perils of yo-yo dieting Beware of the quick-fix, Dr. Arshad warns. A fad diet won t change your set point. It s just restricting calories, he says. Your body is very efficient. You can successfully lose weight for a while, but at some point, your body simply adjusts to need fewer calories to function. Which means weight loss will eventually stop, unless you start eating even less than your diet calls for. (You can see where this is going.) Your body is also a survivor. As soon as calories drop, it starts doing everything in its power to prevent starvation, including: Ups the hunger hormone: Levels of the satiety hormone leptin (which controls how full you feel) decrease. Meanwhile, levels of the hunger hormone ghrelin increase. You feel hungrier, even after eating a normal meal. Makes you think, Oooh that looks good : Eating fewer calories alters how you think about and perceive food. Research shows dieters become hyper-focused on food and that it even smells and tastes better to them. These effects stick around for the long-term. Remember the television show The Biggest Loser? Contestants still felt the effects of their calorie deprivation six years later, making it harder to keepthe weight off. Research tells us that yo-yo dieting can negatively affect your metabolism, Dr. Arshad says. It doesn t matter the diet: low-carb, low-fat, ketogenic, whatever. We see rebound weight gain almost every time. How to lose weight without gaining it back To maintain weight loss for good, Dr. Arshad advises focusing on these four areas: Diet. How can you create a healthy, long-term, cfmnk-modr-tf diet? Learn what s healthy -- and what s not. (A hand etcher helper or dietitian can help.) Practice portion control, even when eating healthy foods. Avoid empty calories, but treat yourself once in a while. Don t diet. Instead, focus on forming healthy habits for life. Exercise. Be an equal opportunity handicapped teacher: Do both aerobic exercise (three to five times a week) and resistance training (two to three times nonconsecutively each week). Shoot for at least 25 to 35minutes on most days. Exercise works best for staving off weight gain (not jumpstarting weight loss), so recognize that binging on exercise can be just as bad as binging on food. Exercise can make people super hungry, while it makes others tired and inactive, which can negate the activity they did, Dr. Arshad explains. But it s also important to remember the cardiovascular benefits of exercise, independent of weight loss. Exercise is always good and important, he says. Stress. Stress not only causes some people to eat more, but it also raises levels of the stress hormone cortisol. If you have more cortisol, you end up with higher insulin and lower blood sugar levels, Dr. Arshad says. (Cue the cravings.) To cope, put down the fork and try meditating or talking to a trusted friend. Sleep. Not getting enough sleep raises cortisol levels, too. It also affects decision-making (read:your ability to stick to healthy habits). Seven to nine hours every night is the magic number you need to help you manage stress. It also helps your body work with you -- and not against you -- when it comes to weight loss. https://health.[facility].org/xek-vrijja-auwq-vxpr-hddoec-cff-vtlr-tn-lno-b ack/ Why People Diet, Lose Weight and Gain It All Back - [facility] Creating a Mindful Eating Environment: 10 Mindless Eating Solutions If you're looking for easier ways to make healthy changes to your diet and lifestyle, consider these simple mindless eating solutions for staying on-track with nutrition: Serve Salad and Vegetables First. Before bringing out your main dish, serve salad and vegetables first to ensure you're eating enough of this important food group. This strategy will also help you eat less of the rest of your dish which is likely higher in calories, etc. Serve Your Main [facility] on the Stove or Counter. Studies show that we're likely to eat less if our food is placed on the stove or counter rather than right in front of us. Eat on Smaller Plates. Similar to the strategy mentioned above, studies show that you're likely to consume less food if you're eating from a smaller plate. This is likely due to the increase of smaller portion sizes. Turn off Your Television. Watching television as you eat can be highly distracting, and it affects your ability to eat mindfully. For example: you're less likely to notice when you're full, so you might consume excess calories. Keep Mostly Water On-hand. Calories from drinks can add up quickly, especially in fruit juices, alcohol and soft drinks. By minimizing the amounts of those drinks on-hand, you're more likely to consume water when you're thirsty - and water has amazing health benefits! Keep Your Kitchen Organized. An organized refrigerator, counter and cabinet space makes you more likely to find and choose the foods which are healthiest for you. On the contrary, a messy kitchen space may make you more apt to grab the first item you see. Pre-cut Your Fruits and Vegetables. Let's admit it: We're more likely to put off eating produce if we have to go through the burden of cutting it first. Pre-cut fruits and vegetables will eliminate this extra step. Have at Least Six Single Servings of Lean Protein On-hand. This includes lean meats such as turkey and chicken, yogurt, eggs, nuts, beans and legumes. By having plenty of lean protein on-hand, you can better manage your appetite and hunger levels. Keep All Snack Foods in One Inconvenient Cupboard. You're less likely to reach for unhealthy snack foods if they're not all gazing up at you from plain sight! Keep Only a Fruit Bowl on Your Counter. This way, if you're one to grab foods based off of their availability, you'll reach for healthier fruits rather than less healthy snack foods. https://www.obesityaction.org/community/news/community-news/hnnpbg-t-osjyknj-eat ing-environment/ Foods that fight inflammation January 02, 2020 Doctors are learning that one of the best ways to reduce inflammation lies not in the medicine cabinet, but in the refrigerator. By following an anti- inflammatory diet you can fight off inflammation for good. What does an anti-inflammatory diet do? Your immune system becomes activated when your body recognizes anything that is foreign--such as an invading microbe, plant pollen, or chemical. This often triggers a process called inflammation. Intermittent bouts of inflammation directed at truly threatening invaders protect your health. However, sometimes inflammation persists, day in and day out, even when you are not threatened by aforeign invader. That's when inflammation can become your enemy. Many major diseases that plague us--including cancer, heart disease, diabetes, arthritis, depression, and Alzheimer's--have been linked to chronic inflammation. One of the most powerful tools to combat inflammation comes not from the pharmacy, but from the grocery store. Many experimental studies have shown that components of foods or beverages may have anti-inflammatory effects, says Dr. Vinicius Iverson, professor of nutrition and epidemiology in the 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 Nutrition at the [employer]. Choose the right anti-inflammatory foods, and you may be able to reduce your risk of illness. Consistently pick the wrong ones, and you could accelerate the inflammatory disease process. Get simple tips to fight inflammation and stay healthy -- from [facility] experts. Protect yourself from the damage of chronic inflammation Click here to learn more Foods that cause inflammation Try to avoid or limit these foods as much as possible: refined carbohydrates, such as white bread and pastries Martiniquais fries and other fried foods soda and other sugar-sweetened beverages red meat (burgers, steaks) and processed meat (hot dogs, sausage) margarine, shortening, and lard The health risks of inflammatory foods Not surprisingly, the same foods on an inflammation diet are generally considered bad for our health, including sodas and refined carbohydrates, as well as red meat and processed meats. Some of the foods that have been associated with an increased risk for chronic diseases such as type 2 diabetes and heart disease are also associated with excess inflammation, Dr. Iverson says. It's not surprising, since inflammation is an important underlying mechanism for the development of these diseases. Unhealthy foods also contribute to weight gain, which is itself a risk factor for inflammation. Yetin several studies, even after researchers took obesity into account, the link between foods and inflammation remained, which suggests weight gain isn't the sole tank truck driver. Some of the food components or ingredients may have independent effects on inflammation over and above increased caloric intake, Dr. Iverson says. Anti-inflammatory foods An anti-inflammatory diet should include these foods: tomatoes olive oil green leafy vegetables, such as spinach, kale, and collards nuts like almonds and walnuts fatty fish like salmon, mackerel, tuna, and sardines fruits such as strawberries, blueberries, cherries, and oranges Benefits of anti-inflammatory foods On the flip side are beverages and foods that reduce inflammation, and with it, chronic disease, says Dr. Iverson. He notes in particular fruits and vegetables such as blueberries, apples, and leafy greens that are high in natural antioxidants and polyphenols--protective compounds found in plants. Studies have also associated nuts with reduced markers of inflammation and a lower risk of cardiovascular disease and diabetes. Coffee, which contains polyphenols and other anti-inflammatory compounds, may protect against inflammation, as well. Anti-inflammatory diet To reduce levels of inflammation, aim for an overall healthy diet. If you're looking for an eating plan that closely follows the tenets of anti-inflammatory eating, consider the Mediterranean diet, which is high in fruits, vegetables, nuts, whole grains, fish, and healthy oils. In addition to lowering inflammation, a more natural, less processed diet can have noticeable effects on your physical and emotional health. A healthy diet is beneficial not only for reducing the risk of chronic diseases, but also for improving mood and overall quality of life, Dr. Iverson says. documented in this encounter[facility] History of Present illness Narrative* Paramjit Fabian Mammo Tech - 04/15/2024 7:30 AM EST Radiology Service Progress Note PATIENT NAME: Ama Avelar DATE OF SERVICE: April 15, 2024 TIME: 7:33 AM PATIENT IDENTITY VERIFICATION COMPLETED USING TWO (2) IDENTIFIERS: Name and Date of confirmedby patient verbally. FALL SCREENING: Has the patient had 2 falls in the last year or 1 fall with injury or currently using an Ambulatory Assistive Device (Walker, Cane, Wheelchair, Crutches, etc.)? No PATIENT GENDER DATA: Female. status: : No status: NO. PATIENT RELEVANT IMPLANT DATA REVIEWED: Not Applicable PATIENT PRESENTS WITH AN IMPLANTABLE OR ATTACHED BRUSH FABRICATION SUPERVISOR: No RADIOLOGY DEPARTMENT: Mammography PERIPHERAL IV DATA: Not applicable SIGNED BY: Shelly Link April 15, 2024 7:33 AM documented in this encounterTrihealth [facility]12-31-2024 NoteHNO ID: [id number] Author: PARAMJIT FABIAN Mammo Tech Service: ? Author Type: Web Services Professional Type: Progress Notes Filed: 04/15/2024 07:36 Note Text: Radiology Service Progress Note PATIENT NAME: Ama Avelar DATE OF SERVICE: April 15, 2024 TIME: 7:33 AM PATIENT IDENTITY VERIFICATION COMPLETED USING TWO (2) IDENTIFIERS: Name and Date of confirmed by patient verbally. FALL SCREENING: Has the patient had 2 falls in the last year or 1 fall with injury or currently using an Ambulatory Assistive Device (Walker, Cane, Wheelchair, Crutches, etc.)? No PATIENT GENDER DATA: Female. status: : No status: NO. PATIENT RELEVANT IMPLANT DATA REVIEWED: Not Applicable PATIENT PRESENTS WITH AN IMPLANTABLE OR ATTACHED BRUSH FABRICATION SUPERVISOR: No RADIOLOGY DEPARTMENT: Mammography PERIPHERAL IV DATA: Not applicable SIGNED BY: Shelly Link April 15, 2024 7:33 [facility]12-30-2024 NoteHNO ID: [id number] Author: PERRY PERSAUD MD Service: ? Author Type: Physician Type: Progress Notes Filed: 04/14/2024 09:16 Note Text: Loan Documents Closer provided by Fatou Andrews LPN Ama is a 48 year old No obstetric history on file. who presents for an annual gynecologic exam without complaints. No menses for more than a year with occ. hotflashes. Still get period: No LMP: no menses x1 year Pt reported. Menopause symptoms: Hot flashes control frequency: Never HPV vaccine: none HPV:positive, unknown with 2021 pap Last pap smear: Patient reported 2021, negative pap History of abnormal pap: Yes, history of abnormal PAP smears Colposcopy: Yes: Leep: No. Cone biopsy: No. Bothersome pelvic pain: Yes Last mammogram: 20[facility] Patient concerns for STD exposure: Yes: same partner past 15 years Last sexual contact: 4 days ago OB History No obstetric history on file. 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 LMP: Age at Menarche: 9 Age at First : Age at Menopause: 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 Comments: Sexual Activity: No sexual activity data on record; No partner data on record Contraception: No contraception data on record PAST MEDICAL HISTORY Diagnosis Date Anxiety HTN (hypertension) Hypothyroid PAST SURGICAL HISTORY Procedure Laterality Date SECTION HX 10/2002 SECTION HX 12/16/2003 D AND C 01/2002 EXCISE EXCESS SKIN TISSUE,ABDOMEN 09/2021 also breast INCISION AND DRAINAGE ABSCESS COMPLICATED/MULTIPLE 11/2010 Abd TUBAL LIGATION HX 12/16/2003 FAMILY HISTORY Problem Relation Age of Onset Hypertension Mother Diabetes Father Heart Father Hypertension Father Diabetes Son type 1 SOCIAL HISTORY Social History Tobacco Use Smoking status: Former Current packs/day: 0.00 Average packs/day: 1 pack/day for 23.1 years (23.1 ttl pk-yrs) Types: Cigarettes Start date: 10/11/1997 Quit date: 11/15/2020 Years since quittin.4 Smokeless tobacco: Never Vaping Use Vaping status: Never Used Substance Use Topics Alcohol use: No Drug use: No REVIEW OF SYSTEMS Abdomen: No abdominal pain, nausea, vomiting, diarrhea, or constipation. No bloating, early satiety, indigestion, or increased flatulence. Bladder: No dysuria, gross hematuria, urinary frequency, urinary urgency, or incontinence. Breast: No breast lumps, nipple d/c, overlying skin changes, redness or skin retraction. Allergies and current medication updated:Yes SENSITIVE EXAM: The sensitive examination was discussed with the Patient or Patient's Authorized Informatics Coordinator. As applicable, any other physician, advance practice provider, medical student, or other health professional student that will be observing or involved in the sensitive examination for educational or training purposes was discussed with the Patient or Authorized Informatics Coordinator. The Patient or Authorized Informatics Coordinator has agreed to proceed with the sensitive examination. (Sensitive examination includes inspection and/or palpation of the breasts, pelvis, prostate and anorectal regions). EXAM: There were no vitals taken for this visit. GENERAL: pleasant, female in no apparent distress HEENT: Normocephalic, atraumatic, mucus membranes moist, and no lesions NECK: Supple, full range of motion, no adenopathy, and thyroid normal DERMATOLOGY: Normal, without lesions, non-icteric, and non-hirsute BREAST: soft, non-tender, symmetric, no dominant mass, normal nipple-areolar complex, no lymphadenopathy, no nipple discharge, and noting breast reduction scar CHEST: Normal inspiratory effort ABDOMEN: soft, non-tender, no masses, and and notoing a diathesis and scars from abdominoplasty PELVIC: external genitalia normal, normal Bartholin's glands, urethra, [place]'s glands, no vulvar lesions, no cervical lesions, good vaginal support, physiologic discharge present, normal appearing perineal body and perianal region BIMANUAL: uterus normal size, shape and consistency, no adnexal masses, and non-tender RECTOVAGINAL: deferred. NEURO: alert and oriented x3,exam grossly non-focal EXTREMITIES: normal ASSESSMENT/PLAN: 1) Health maintenance: Pap done with reflex HPV. Mammogram ordered. 2) Contraception: tubal sterilization. Contraceptive options reviewed and information provided. 3) STD screening: Declined STD check. 4) Follow up one year or sooner as needed 5) Interested in weight loss consultation Perry Persaud, [facility]12-30-2024 History of Present illness Narrative* Perry Persaud MD - 04/14/2024 8:31 AM EST Loan Documents Closer provided by Fatou Andrews LPN Ama is a 48 year old No obstetric history on file. who presents for an annual gynecologic exam without complaints. No menses for more than a year with occ. hotflashes. Still get period: No LMP: no menses x1 year Pt reported. Menopause symptoms: Hot flashes control frequency: Never HPV vaccine: none HPV:positive, unknown with 2021 pap Last pap smear: Patient reported 2021, negative pap History of abnormal pap: Yes, history of abnormal PAP smears Colposcopy: Yes: Leep: No. Cone biopsy: No. Bothersome pelvic pain: Yes Last mammogram: 2022[facility] Patient concerns for STD exposure: Yes: same partner past 15 years Last sexual contact: 4 days ago OB History No obstetric history on file. 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 LMP: Age at Menarche: 9 Age at First : Age at Menopause: 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 Comments: Sexual Activity: No sexual activity data on record; No partner data on record Contraception: No contraception data on record PAST MEDICAL HISTORY Diagnosis Date Anxiety HTN (hypertension) Hypothyroid PAST SURGICAL HISTORY Procedure Laterality Date SECTION HX 10/2002 SECTION HX 12/16/2003 D AND C 01/2002 EXCISE EXCESS SKIN TISSUE,ABDOMEN 09/2021 also breast INCISION & DRAINAGE ABSCESS COMPLICATED/MULTIPLE 11/2010 Abd TUBAL LIGATION HX 12/16/2003 FAMILY HISTORY Problem Relation Age of Onset Hypertension Mother Diabetes Father Heart Father Hypertension Father Diabetes Son type 1 SOCIAL HISTORY Social History Tobacco Use Smoking status: Former Current packs/day: 0.00 Average packs/day: 1 pack/day for 23.1 years (23.1 ttl pk-yrs) Types: Cigarettes Start date: 10/11/1997 Quit date: 11/15/2020 Years since quittin.4 Smokeless tobacco: Never Vaping Use Vaping status: Never Used Substance Use Topics Alcohol use: No Drug use: No REVIEW OF SYSTEMS Abdomen: No abdominal pain, nausea, vomiting, diarrhea, or constipation. No bloating, early satiety, indigestion, or increased flatulence. Bladder: No dysuria, gross hematuria, urinary frequency, urinary urgency, or incontinence. Breast: No breast lumps, nipple d/c, overlying skin changes, redness or skin retraction. Allergies and current medication updated:Yes SENSITIVE EXAM: The sensitive examination was discussed with the Patient or Patient's Authorized Informatics Coordinator. As applicable, any other physician, advance practice provider, medical student, or other health professional student that will be observing or involved in the sensitive examination for educational or training purposes was discussed with the Patient or Authorized Informatics Coordinator. The Patient or Authorized Informatics Coordinator has agreed to proceed with the sensitive examination. (Sensitive examination includes inspection and/or palpation of the breasts, pelvis, prostate and anorectal regions). EXAM: There were no vitals taken for this visit. GENERAL: pleasant, female in no apparent distress HEENT: Normocephalic, atraumatic, mucus membranes moist, and no lesions NECK: Supple, full range of motion, no adenopathy, and thyroid normal DERMATOLOGY: Normal, without lesions, non-icteric, and non-hirsute BREAST: soft, non-tender, symmetric, no dominant mass, normal nipple-areolar complex, no lymphadenopathy, no nipple discharge, and noting breast reduction scar CHEST: Normal inspiratory effort ABDOMEN: soft, non-tender, no masses, and and notoing a diathesis and scars from abdominoplasty PELVIC: external genitalia normal, normal Bartholin's glands, urethra, [place]'s glands, no vulvar lesions, no cervical lesions, good vaginal support, physiologic discharge present, normal appearing perineal body and perianal region BIMANUAL: uterus normal size, shape and consistency, no adnexal masses, and non-tender RECTOVAGINAL: deferred. NEURO: alert and oriented x3,exam grossly non-focal EXTREMITIES: normal ASSESSMENT/PLAN: 1) Health maintenance: Pap done with reflex HPV. Mammogram ordered. 2) Contraception: tubal sterilization. Contraceptive options reviewed and information provided. 3) STD screening: Declined STD check. 4) Follow up one year or sooner as needed 5) Interested in weight loss consultation Perry Persaud [facility] Discharge instructions Patient Education 01/16/2024 04:56:04 Sinusitis (Antibiotic Treatment) Sinusitis (Antibiotic Treatment) The sinuses are air-filled spaces within the bones of the face. They connect to the inside of the nose. Sinusitis is an inflammation of the tissue that lines the sinuses. Sinusitis can occur during acold. It can also happen due to allergies to pollens and other particles in the air. Sinusitis can cause symptoms of sinus congestion and a feeling of fullness. A sinus infection causes fever, headache, and facial pain. There is often green or yellow fluid draining from the nose or into the back ofthe throat (post-nasal drip). You have been given antibiotics to treat this condition. Home care Take the full course of antibiotics as instructed. Do not stop taking them, even when you feel better. Drink plenty of water, hot tea, and other liquids. This may help thin nasal mucus. It also may helpyour sinuses drain fluids. Heat may help soothe painful areas of your face. Use a towel soaked in hot water. Or, machine hostler the shower and direct the warm spray onto your face. Using a vaporizer along with a menthol rub at nightmay also help soothe symptoms. An expectorant with guaifenesin may help thin nasal mucus and help your sinuses drain fluids. You can use an vyyd-pgp-gzgoqjn decongestant, unless a similar medicine was prescribed to you. Nasal sprays work the fastest. Use one that contains phenylephrine or oxymetazoline. First blow your nose gently. Then use the spray. Do not use these medicines more often than directed on the label. If you do, your symptoms may get worse. You may also take pills that contain pseudoephedrine. Don t use products that combine multiple medicines. This is because side effects may be increased. Read labels. You can also ask the pharmacist for help. (People with high blood pressure should not use decongest ants. They can raise blood pressure.) Nacd-dbq-nmfdkji antihistamines may help if allergies contributed to your sinusitis. Do not use nasal rinses or irrigation during an acute sinus infection, unless your healthcare provider tells you to. Rinsing may spread the infection to other areas in your sinuses. Use acetaminophen or ibuprofen to control pain, unless another pain medicine was prescribed to you.If you have chronic liver or kidney disease or ever had a stomach ulcer, talk with your healthcare provider before using these medicines. (Aspirin should never be taken by anyone under age 18 who is ill with a fever. It may cause severe liver damage.) Don't smoke. This can make symptoms worse. Follow-up care Follow up with your healthcare provider or our staff if you are not better in 1 week. When to seek medical advice Call your healthcare provider if any of these occur: Facial pain or headache that gets worse Stiff neck Unusual drowsiness or confusion Swelling of your forehead or eyelids Vision problems, such as blurred or double vision Fever of 100.4 F (38 C) or higher, or as directed by your healthcare provider Seizure Breathing problems Symptoms don't go away in 10 days Prevention Here are steps you can take to help prevent an infection: Keep good hand washing habits. Don t have close contact with people who have sore throats, colds, or other upper respiratory infections. Don t smoke, and stay away from secondhand smoke. Stay up to date with of your vaccines. 3241-2900 [employer]. [address] [place] [address]. All rights reserved. This information is not intended as a substitute for professional medical care. Always follow yourhealthcare professional's instructions. Follow Up Care 01/16/2024 04:32:02 With:BARI DESAI Address: [facility] [place] [address] Mambu (1) When:3-5 days Comments:As discussed, you may use Afrin nasal spray, Sudafed help decongest, if no improvement or worseningsymptoms you may use antibiotics, follow-up with your doctor. [facility] 10-02-2024 Note Discharge Instructions Thank you for allowing [facility] to assist you with your healthcare needs. The following is importantdischarge information regarding your hospital visit. Diagnosis from Today's Visit Sinusitis What to Do Next Instructions from Your Care Team No qualifying data available. Post Acute Orders No qualifying data available. You Need to Schedule the Following Appointments Follow Up with BARI DESAI When:Within 3-5 days Where:[place] [id number] Mambu (1) Additional Information: As discussed, you may use Afrin nasal spray, Sudafed help decongest, if no improvement or worsening symptoms you may use antibiotics, follow-up with your doctor. Allergies Compazine Zofran Medications Please ask your primary doctor or pharmacist before taking any other medication not listed, including over the counter drugs, herbal medications, vitamins and or supplements as they may interact withyour home medications. What How Much When Instructions Last Dose New amoxicillin-clavulanate (amoxicillin-clavulanate 875 mg-125 mg oral tablet) 1 tab(s) by mouth Every 12 hours Duration: 7 Days Printed Prescription Unchanged ALPRAZolam (Xanax 1 mg oral tablet) 1 tab(s) by mouth Three (3) times a day as needed for for anxiety Unchanged atenolol (atenolol 25 mg oral tablet) 1 tab(s) by mouth Once a day Unchanged dicyclomine (dicyclomine 10 mg oral capsule) 1 cap by mouth Four (4) times a day Duration: 5 Days Unchanged levothyroxine (levothyroxine 88 mcg (0.088 mg) oral tablet) 1 tab(s) by mouth Once a day Unchanged lidocaine topical (lidocaine 5% topical patch) 1 patch(es) Topical Every day Duration: 10 Days Unchanged tirzepatide (Mounjaro 5 mg/ 0.5 mL subcutaneous solution) 5 Milligram Subcutaneous Every week rotate injection sites Please take this list to your next doctor s visit. Bring all medications you take, including over the counter medications, herbals and other supplements with you to your doctor s visit. Patients and families are reminded to discard old lists and to update any records with all medication providers or retail pharmacies. Education Materials Sinusitis (Antibiotic Treatment) The sinuses are air-filled spaces within the bones of the face. They connect to the inside of the nose. Sinusitis is an inflammation of the tissue that lines the sinuses. Sinusitis can occur during acold. It can also happen due to allergies to pollens and other particles in the air. Sinusitis can cause symptoms of sinus congestion and a feeling of fullness. A sinus infection causes fever, headache, and facial pain. There is often green or yellow fluid draining from the nose or into the back ofthe throat (post-nasal drip). You have been given antibiotics to treat this condition. Home care Take the full course of antibiotics as instructed. Do not stop taking them, even when you feel better. Drink plenty of water, hot tea, and other liquids. This may help thin nasal mucus. It also may helpyour sinuses drain fluids. Heat may help soothe painful areas of your face. Use a towel soaked in hot water. Or, machine hostler the shower and direct the warm spray onto your face. Using a vaporizer along with a menthol rub at nightmay also help soothe symptoms. An expectorant with guaifenesin may help thin nasal mucus and help your sinuses drain fluids. You can use an eiro-qpi-buyiigc decongestant, unless a similar medicine was prescribed to you. Nasal sprays work the fastest. Use one that contains phenylephrine or oxymetazoline. First blow your nose gently. Then use the spray. Do not use these medicines more often than directed on the label. If you do, your symptoms may get worse. You may also take pills that contain pseudoephedrine. Don t use products that combine multiple medicines. This is because side effects may be increased. Read labels. You can also ask the pharmacist for help. (People with high blood pressure should not use decongest ants. They can raise blood pressure.) Lhyg-cgv-yydnstf antihistamines may help if allergies contributed to your sinusitis. Do not use nasal rinses or irrigation during an acute sinus infection, unless your healthcare provider tells you to. Rinsing may spread the infection to other areas in your sinuses. Use acetaminophen or ibuprofen to control pain, unless another pain medicine was prescribed to you.If you have chronic liver or kidney disease or ever had a stomach ulcer, talk with your healthcare provider before using these medicines. (Aspirin should never be taken by anyone under age 18 who is ill with a fever. It may cause severe liver damage.) Don't smoke. This can make symptoms worse. Follow-up care Follow up with your healthcare provider or our staff if you are not better in 1 week. When to seek medical advice Call your healthcare provider if any of these occur: Facial pain or headache that gets worse Stiff neck Unusual drowsiness or confusion Swelling of your forehead or eyelids Vision problems, such as blurred or double vision Fever of 100.4 F (38 C) or higher, or as directed by your healthcare provider Seizure Breathing problems Symptoms don't go away in 10 days Prevention Here are steps you can take to help prevent an infection: Keep good hand washing habits. Don t have close contact with people who have sore throats, colds, or other upper respiratory infections. Don t smoke, and stay away from secondhand smoke. Stay up to date with of your vaccines. 2828-1673 [employer]. [address] [place] [address], [place] [address]. All rights reserved. This information is not intended as a substitute for professional medical care. Always follow yourhealthcare professional's instructions. Additional Information VACCINATE! IT SAVES LIVES! Members of the community who have not yet received the COVID-19 vaccine and would like to receive it can visit one of [facility] vaccine clinics. There are many vaccine clinic locations within the [facility]. For locations and available times, please visit www.gettheshot.coronavirus.[place].gov/. It is important to note that some COVID mobile vaccine clinics are held outdoors and may be canceled in rainy or stormy conditions. To learn more about pediatric vaccinations (ages 5-11), we invite you to visit the [facility] webpage. [email or web address]/[email or web address]-Ppfwj-Jytuioqpywp-Njiwidyvsm-Gqhsr-[email or web address] stions.htmlTo learn more about the COVID-19 vaccine, we invite you to visit the CDC website for a list of frequently asked questions. https://www.cdc.gov/coronavirus/2019-ncov/vaccines/faq.html [facility] Patient Portal Access Instructions: Stay connected with your healthcare team and access your personal medical information anytime with the [facility] Patient Portal. If you would like a full copy of your medical records please contact the [facility] Medical Records Department Sunday through Sunday between 8a.m. and 4:30p.m. Please follow the directions below to access the portal: 1.Access the email account you provided upon registration to the hospital.2.Look for an invitation email from [facility].3.Open the email and access the invitation link: Accept Invitation to [facility]4.Fill in the required roe to create your account. Sign into [email or web address] with your username and password that you [...] you will allow to register on the [facility] Patient Portal for access to your information. You can also access the [facility] Patient Portal on the [employer] irais. Simply click on Health Records under [facility] and then click on the [employer] logo. HOW TO SAFELY DISPOSE OF PRESCRIPTION MEDICATIONS Please use one of the following methods to safely dispose of your unused medications. 1.Use a drug disposal kit: the drug disposal pouch allows you to safely discard your old and unuseddrugs. Ask your nurse to give you one when you are discharged.2.Visit a local take-back location: Many local pharmacies and police departments have programs that collect old and unwanted prescriptiondrugs. Call your local pharmacy or go to http://Bathrooms.com.HELIX BIOMEDIX/5N1Fr5i to find one close to you.3.Make use of household items: Use cat litter or old coffee grounds to dispose medications if other options arenot available. Mix your drugs with these household products, seal them in an airtight container andthrow it into the garbage. Call [facility]: [phone] to be sure your drugs can be [...] drowsiness, such as benzodiazepines, also known as benzos,including diazepam and alprazolam, muscle relaxants or sleep aids. Never sell or share prescriptionopioids. This is illegal. Store opioids in a secure place and out of reach of others (including children, family, friends and visitors). The last page(s) of this document has been signed and retained as a CHART COPY Signatures Patient Education Materials Sinusitis (Antibiotic Treatment) Medication Leaflets My discharge plan and instructions have been reviewed and explained to me and I,GREEN, AMA understand my current condition and have read and understand these discharge instructions. I have received a written copy of the plan/instructions. If I have questions, I am aware that I should contact my doctor. Patient/Informatics Coordinator Signature: Date/Time: Relationship to Patient: Witness Name/Signature: Date/Time: [facility]04-25-2024 Hospital Discharge instructions Patient Education 08/08/2023 23:17:13 Chest Pain, Uncertain Cause Uncertain Causes of Chest Pain Chest pain can happen for a number of reasons. Sometimes the cause can't be determined. If your condition does not seem serious, and your pain does not appear to be coming from your heart, your healthcare provider may recommend watching it closely. Sometimes the signs of a serious problem take moretime to appear. Many problems not related to your heart can cause chest pain. These include: Musculoskeletal. Costochondritis is an inflammation of the tissues around the ribs that can occur from trauma or overuse injuries, or a strain of the muscles of the chest wall Respiratory. Pneumonia, collapsed lung (pneumothorax), or inflammation of the lining of the chest and lungs (pleurisy) Gastrointestinal. Esophageal reflux, heartburn, ulcers, or gallbladder disease Anxiety and panic disorders Nerve compression and inflammation Rare miscellaneous problems such as aortic aneurysm (a swelling of the large artery coming out of the heart) or pulmonary embolism (a blood clot in the lungs) Home care After your visit, follow these recommendations: Rest today and avoid strenuous activity. Take any prescribed medicine as directed. Be aware of any recurrent chest pain and notice any changes Follow-up care Follow up with your healthcare provider if you do not start to feel better within 24 hours, or as advised. Call 911 Call 911 if any of these occur: A change in the type of pain: if it feels different, becomes more severe, lasts longer, or begins to spread into your shoulder, arm, neck, jaw or back Shortness of breath or increased pain with breathing Weakness, dizziness, or fainting Rapid heart beat Crushing sensation in your chest When to seek medical advice Call your healthcare provider right away if any of the following occur: Cough with dark colored sputum (phlegm) or blood Fever of 100.4 F (38 C) or higher, or as directed by your healthcare provider Swelling, pain or redness in one leg 1259-1691 [employer]. [address] [place] [address]. All rights reserved. This information is not intended as a substitute for professional medical care. Always follow yourhealthcare professional's instructions. 08/08/2023 23:17:05 Hypertension, Established Established High Blood Pressure High blood pressure (hypertension) is a chronic disease. Often, healthcare providers don t know what causes it. But it can be caused by certain health conditions and medicines. If you have high blood pressure, you may not have any symptoms. If you do have symptoms, they may include headache, dizziness, changes in your vision, chest pain, and shortness of breath. But even without symptoms, high blood pressure that s not treated raises your risk for heart attack, heart failure, and stroke. High blood pressure is a serious health risk and shouldn t be ignored. Blood pressure measurements are given as 2 numbers. Systolic blood pressure is the upper number. This is the pressure when the heart contracts. Diastolic blood pressure is the lower number. This is the pressure when the heart relaxes between beats. You will see your blood pressure readings written together. For example, a person with a systolic pressure of 118 and a diastolic pressure of 78 will have 118/78 written in the medical record. Blood pressure is categorized as normal, elevated, or stage 1 or stage 2 high blood pressure: Normal blood pressure is systolic of less than 120 and diastolic of less than 80 (120/80) Elevated blood pressure is systolic of 120 to 129 and diastolic less than 80 Stage 1 high blood pressure is systolic is 130 to 139 or diastolic between 80 to 89 Stage 2 high blood pressure is when systolic is 140 or higher or the diastolic is 90 or higher Home care If you have high blood pressure, follow these home care guidelines to help lower your blood pressure. If you are taking medicines for high blood pressure, these methods may reduce or end your need for medicines in the future. Start a weight-loss program if you are overweight. Cut back on how much salt you get in your diet. Here s how to do this: oDon t eat foods that have a lot of salt. These include olives, pickles, smoked meats, and salted potato chips. oDon t add salt to your food at the table. oUse only small amounts of salt when cooking. Start an exercise program. Talk with your healthcare provider about the type of exercise program that would be best for you. It doesn't have to be hard. Even brisk walking for 20 minutes 3 times a week is a good form of exercise. Don t take medicines that stimulate the heart. This includes many szne-ywa-ftalvvd cold and sinus decongestant pills and sprays, as well as diet pills. Check the warnings about high blood pressure onthe label. Before buying any irlk-wcj-myrwvwr medicines or supplements, always ask the pharmacist about the product's potential interaction with your high blood pressure and your high blood pressure medicines. Stimulants such as amphetamine or cocaine could be deadly for someone with high blood pressure. Never take these. Limit how much caffeine you get in your diet. Switch to caffeine-free products. Stop smoking. If you are a long-time smoker, this can be hard. Talk to your healthcare provider about medicines and nicotine replacement options to help you. Also, enroll in a stop-smoking program tomake it more likely that you will quit for good. Learn how to handle stress. This is an important part of any program to lower blood pressure. Learnabout relaxation methods like meditation, yoga, or biofeedback. If your provider prescribed medicines, take them exactly as directed. Missing doses may cause your blood pressure get out of control. If you miss a dose or doses, check with your healthcare provider or pharmacist about what to do. Consider buying an automatic blood pressure machine to check your blood pressure at home. Ask your provider for a recommendation. You can get one of these at most pharmacies. The [place] [employer] recommends the following guidelines for home blood pressure monitoring: Don't smoke or drink coffee for 30 minutes before taking your blood pressure. Go to the bathroom before the test. Relax for 5 minutes before taking the measurement. Sit with your back supported (don't sit on a couch or soft chair); keep your feet on the floor uncrossed. Place your arm on a solid flat surface (like a table) with the upper part of the arm at heartlevel. Place the middle of the cuff directly above the bend of the elbow. Check the monitor's instruction manual for an illustration. Take multiple readings. When you measure, take 2 to 3 readings one minute apart and record all of the results. Take your blood pressure at the same time every day, or as your healthcare provider recommends. Record the date, time, and blood pressure reading. Take the record with you to your next medical appointment. If your blood pressure monitor has a built-in memory, simply take the monitor with you to your next appointment. Call your provider if you have several high readings. Don't be frightened by a single high blood pressure reading, but if you get several high readings, check in with your healthcare provider. Note: When blood pressure reaches a systolic (top number) of 180 or higher OR diastolic (bottom number) of 110 or higher, seek emergency medical treatment. Follow-up care You will need to see your healthcare provider regularly. This is to check your blood pressure and to make changes to your medicines. Make a follow-up appointment as directed. [facility] to the appointment. When to seek medical advice Call your healthcare provider right away if any of these occur: Blood pressure reaches a systolic (upper number) of 180 or higher OR a diastolic (bottom number) of110 or higher Chest pain or shortness of breath Severe headache Throbbing or rushing sound in the ears Nosebleed Sudden severe pain in your belly (abdomen) Extreme drowsiness, confusion, or fainting Dizziness or spinning sensation (vertigo) Weakness of an arm or leg or one side of the face You have problems speaking or seeing 4829-0410 [employer]. [address] [place] [address], [place] [address]. All rights reserved. This information is not intended as a substitute for professional medical care. Always follow yourhealthcare professional's instructions. Follow Up Care 08/08/2023 21:25:07 With:TANA ZHANG Address: [address] [facility] [address] [place] [address] [phone] Business (1) When:2-4 days Comments:Return to ED if symptoms worsen With:BARI HIGUERA MD Address: [address] [place] [address] [phone] When:2-[address] [facility] 04-24-2024 Note Discharge Instructions Thank you for allowing [facility] to assist you with your healthcare needs. The following is importantdischarge information regarding your hospital visit. Diagnosis from Today's Visit Chest pain Hypertension What to Do Next Instructions from Your Care Team No qualifying data available. Post Acute Orders No qualifying data available. You Need to Schedule the Following Appointments Follow Up with TANA ZHANG When Within 2-4 days Why: Return to ED if symptoms worsen Where: [address] [place] [address] [address] [place] [address] [phone] Business (1) Follow Up with BARI HIGUERA MD When Within 2-4 days Where: [address] [place] [address] [phone] Allergies Zofran Medications Please ask your primary doctor or pharmacist before taking any other medication not listed, including over the counter drugs, herbal medications, vitamins and or supplements as they may interact [facility] medications. What How Much When Instructions Last Dose Unchanged ALPRAZolam (Xanax 1 mg oral tablet) 1 tab(s) by mouth Three (3) times a day as needed for for anxiety Unchanged atenolol (atenolol 25 mg oral tablet) 1 tab(s) by mouth Once a day Unchanged dicyclomine (dicyclomine 10 mg oral capsule) 1 cap by mouth Four (4) times a day Duration: 5 Days Unchanged levothyroxine (levothyroxine 88 mcg (0.088 mg) [...] medication providers or retail pharmacies. Education Materials Uncertain Causes of Chest Pain Chest pain can happen for a number of reasons. Sometimes the cause can't be determined. If your condition does not seem serious, and your pain does not appear to be coming from your heart, your healthcare provider may recommend watching it closely. Sometimes the signs of a serious problem take moretime to appear. Many problems not related to your heart can cause chest pain. These include: Musculoskeletal. Costochondritis is an inflammation of the tissues around the ribs that can occur from trauma or overuse injuries, or a strain of the muscles of the chest wall Respiratory. Pneumonia, collapsed lung (pneumothorax), or inflammation of the lining of the chest and lungs (pleurisy) Gastrointestinal. Esophageal reflux, heartburn, ulcers, or gallbladder disease Anxiety and panic disorders Nerve compression and inflammation Rare miscellaneous problems such as aortic aneurysm (a swelling of the large artery coming out of the heart) or pulmonary embolism (a blood clot in the lungs) Home care After your visit, follow these recommendations: Rest today and avoid strenuous activity. Take any prescribed medicine as directed. Be aware of any recurrent chest pain and notice any changes Follow-up care Follow up with your healthcare provider if you do not start to feel better within 24 hours, or as advised. Call 911 Call 911 if any of these occur: A change in the type of pain: if it feels different, becomes more severe, lasts longer, or begins to spread into your shoulder, arm, neck, jaw or back Shortness of breath or increased pain with breathing Weakness, dizziness, or fainting Rapid heart beat Crushing sensation in your chest When to seek medical advice Call your healthcare provider right away if any of the following occur: Cough with dark colored sputum (phlegm) or blood Fever of 100.4 F (38 C) or higher, or as directed by your healthcare provider Swelling, pain or redness in one leg 4020-6066 [employer]. [address] [place] [address]. All rights reserved. This information is not intended as a substitute for professional medical care. Always follow yourhealthcare professional's instructions. Established High Blood Pressure High blood pressure (hypertension) is a chronic disease. Often, healthcare providers don t know what causes it. But it can be caused by certain health conditions and medicines. If you have high blood pressure, you may not have any symptoms. If you do have symptoms, they may include headache, dizziness, changes in your vision, chest pain, and shortness of breath. But even without symptoms, high blood pressure that s not treated raises your risk for heart attack, heart failure, and stroke. High blood pressure is a serious health risk and shouldn t be ignored. Blood pressure measurements are given as 2 numbers. Systolic blood pressure is the upper number. This is the pressure when the heart contracts. Diastolic blood pressure is the lower number. This is the pressure when the heart relaxes between beats. You will see your blood pressure readings written together. For example, a person with a systolic pressure of 118 and a diastolic pressure of 78 will have 118/78 written in the medical record. Blood pressure is categorized as normal, elevated, or stage 1 or stage 2 high blood pressure: Normal blood pressure is systolic of less than 120 and diastolic of less than 80 (120/80) Elevated blood pressure is systolic of 120 to 129 and diastolic less than 80 Stage 1 high blood pressure is systolic is 130 to 139 or diastolic between 80 to 89 Stage 2 high blood pressure is when systolic is 140 or higher or the diastolic is 90 or higher Home care If you have high blood pressure, follow these home care guidelines to help lower your blood pressure. If you are taking medicines for high blood pressure, these methods may reduce or end your need for medicines in the future. Start a weight-loss program if you are overweight. Cut back on how much salt you get in your diet. Here s how to do this: oDon t eat foods that have a lot of salt. These include olives, pickles, smoked meats, and salted potato chips. oDon t add salt to your food at the table. oUse only small amounts of salt when cooking. Start an exercise program. Talk with your healthcare provider about the type of exercise program that would be best for you. It doesn't have to be hard. Even brisk walking for 20 minutes 3 times a week is a good form of exercise. Don t take medicines that stimulate the heart. This includes many wagy-imz-rsocerh cold and sinus decongestant pills and sprays, as well as diet pills. Check the warnings about high blood pressure onthe label. Before buying any ekgu-dha-isdrqso medicines or supplements, always ask the pharmacist about the product's potential interaction with your high blood pressure and your high blood pressure medicines. Stimulants such as amphetamine or cocaine could be deadly for someone with high blood pressure. Never take these. Limit how much caffeine you get in your diet. Switch to caffeine-free products. Stop smoking. If you are a long-time smoker, this can be hard. Talk to your healthcare provider about medicines and nicotine replacement options to help you. Also, enroll in a stop-smoking program tomake it more likely that you will quit for good. Learn how to handle stress. This is an important part of any program to lower blood pressure. Learnabout relaxation methods like meditation, yoga, or biofeedback. If your provider prescribed medicines, take them exactly as directed. Missing doses may cause your blood pressure get out of control. If you miss a dose or doses, check with your healthcare provider or pharmacist about what to do. Consider buying an automatic blood pressure machine to check your blood pressure at home. Ask your provider for a recommendation. You can get one of these at most pharmacies. The [place] [employer] recommends the following guidelines for home blood pressure monitoring: Don't smoke or drink coffee for 30 minutes before taking your blood pressure. Go to the bathroom before the test. Relax for 5 minutes before taking the measurement. Sit with your back supported (don't sit on a couch or soft chair); keep your feet on the floor uncrossed. Place your arm on a solid flat surface (like a table) with the upper part of the arm at heartlevel. Place the middle of the cuff directly above the bend of the elbow. Check the monitor's instruction manual for an illustration. Take multiple readings. When you measure, take 2 to 3 readings one minute apart and record all of the results. Take your blood pressure at the same time every day, or as your healthcare provider recommends. Record the date, time, and blood pressure reading. Take the record with you to your next medical appointment. If your blood pressure monitor has a built-in memory, simply take the monitor with you to your next appointment. Call your provider if you have several high readings. Don't be frightened by a single high blood pressure reading, but if you get several high readings, check in with your healthcare provider. Note: When blood pressure reaches a systolic (top number) of 180 or higher OR diastolic (bottom number) of 110 or higher, seek emergency medical treatment. Follow-up care You will need to see your healthcare provider regularly. This is to check your blood pressure and to make changes to your medicines. Make a follow-up appointment as directed. Bring the record of yourhome blood pressure readings to the appointment. When to seek medical advice Call your healthcare provider right away if any of these occur: Blood pressure reaches a systolic (upper number) of 180 or higher OR a diastolic (bottom number) of110 or higher Chest pain or shortness of breath Severe headache Throbbing or rushing sound in the ears Nosebleed Sudden severe pain in your belly (abdomen) Extreme drowsiness, confusion, or fainting Dizziness or spinning sensation (vertigo) Weakness of an arm or leg or one side of the face You have problems speaking or seeing 0083-6319 [employer]. [address] [place] [address]. All rights reserved. This information is not intended as a substitute for professional medical care. Always follow yourhealthcare professional's instructions. Additional Information VACCINATE! IT SAVES LIVES! Members of the community who have not yet received the COVID-19 vaccine and would like to receive it can visit one of [facility] vaccine clinics. There are many vaccine clinic locations within the [facility]. For locations and available times, please visit www.gettheshot.coronavirus.[place].gov/. It is important to note that some COVID mobile vaccine clinics are held outdoors and may be canceled in rainy or stormy conditions. To learn more about pediatric vaccinations (ages 5-11), we invite you to visit the [facility] webpage. https://www.[facility].org/pages/9566-Wslmh-Iyoeedlkbhz-Zfvxrhiuya-Rvelk-Hmh stions.htmlTo learn more about the COVID-19 vaccine, we invite you to visit the CDC website for a list of frequently asked questions. https://www.cdc.gov/coronavirus/2019-ncov/vaccines/faq.html [facility] Patient Portal Access Instructions: Stay connected with your healthcare team and access your personal medical information anytime with the [facility] Patient Portal. If you would like a full copy of your medical records please contact the [facility] Medical Records Department Sunday through Sunday between 8a.m. and 4:30p.m. Please follow the directions below to access the portal: 1.Access the email account you provided upon registration to the [facility].2.Look for an invitation email from [facility].3.Open the email and access the invitation link: Accept Invitation to [facility].Fill in the required roe to create your account. Sign into www.[email or web address] with your username and password that you [...] you will allow to register on the [facility] Patient Portal for access to your information. You can also access the [facility] Patient Portal on the [employer] irais. Simply click on Health Records under [employer] and then click on the [employer] logo. HOW TO SAFELY DISPOSE OF PRESCRIPTION MEDICATIONS Please use one of the following methods to safely dispose of your unused medications. 1.Use a drug disposal kit: the drug disposal pouch allows you to safely discard your old and unuseddrugs. Ask your nurse to give you one when you are discharged.2.Visit a local take-back location: Many local pharmacies and police departments have programs that collect old and unwanted prescriptiondrugs. Call your local pharmacy or go to http://bit.HELIX BIOMEDIX/2E7Qm9p to find one close to you.3.Make use of household items: Use cat litter or old coffee grounds to dispose medications if other options arenot available. Mix your drugs with these household products, seal them in an airtight container andthrow it into the garbage. Call [facility]: [phone] to be sure your drugs can be [...] drowsiness, such as benzodiazepines, also known as benzos,including diazepam and alprazolam, muscle relaxants or sleep aids. Never sell or share prescriptionopioids. This is illegal. Store opioids in a secure place and out of reach of others (including children, family, friends and visitors). The last page(s) of this document has been signed and retained as a CHART COPY Signatures Patient Education Materials Chest Pain, Uncertain Cause Hypertension, Established Medication Leaflets My discharge plan and instructions have been reviewed and explained to me and ICHAYITO THERESA understand my current condition and have read and understand these discharge instructions. I have received a written copy of the plan/instructions. If I have questions, I am aware that I should contact my doctor. Patient/Informatics Coordinator Signature: Date/Time: Relationship to Patient: Witness Name/Signature: Date/Time: [facility]04-24-2024 Note ORIGINAL EXAMINATION: ONE XRAY VIEW OF THE CHEST08/08/2023 9:50 pm COMPARISON: None HISTORY: ORDERING SYSTEM PROVIDED HISTORY: Reason for Exam: Left sided chest pain, high blood pressure. chest pain FINDINGS: The cardiomediastinal silhouette is within normal limits. No focal pulmonary consolidation, pneumothorax, or large pleural effusion visualized. No acute osseous abnormalities identified. Degenerative spine changes. IMPRESSION: No acute radiographic abnormality identified. Preliminary Report was Dictated by a Resident I have personally reviewed all of the images of this examination and agree with the resident findings and interpretation. Interpreted by: Mark Bass MD Preliminary Report By: Matthew Hdez Electronically signed By Mark Bass MD Dictated Date: 08/08/2023 9:57:49 PM Prelim Date: 08/08/2023 10:02:26 PM Sign Date: 08/08/2023 10:45:02 PM [facility]ing [facility] NoteSinus rhythm Baseline wander in lead(s) II,III,aVF Electronic Signature: MD HALEY HURT MD 08/08/2023 21:43:04[facility] 04-17-2024 Telephone encounter Note* Telephone Encounter - Abimbola Brice - 08/01/2023 10:59 AM EDT Patient changing to nsurg and transferred to established patient line as can get rescheduled with Dr. Barajas (nsurg appt). [id number] Miscellaneous Notes* Telephone Encounter - Abimbola Brice - 08/01/2023 10:59 AM EDT Patient changing to nsurg and transferred to established patient line as can get rescheduled with Dr. Barajas (nsurg appt). documented in this [facility]04-12-2024 NoteAddended by: MCKAYLA LUO on: 07/27/2023 10:43 AM Modules accepted: [facility]04-12-2024 Note* Addendum Note - Mckayla Luo LPN - 07/27/2023 10:43 AM EDTAddended by: MCKAYLA LUO on: 07/27/2023 10:43 AM Modules accepted: Orders [id number] Note* Addendum Note - Mckayla Luo LPN - 07/27/2023 10:43 AM EDTAddended by: MCKAYLA LUO on: 07/27/2023 10:43 AM Modules accepted: Orders [id number] Note* Addendum Note - Mckayla Luo LPN - 07/27/2023 10:43 AM EDTAddended by: MCKAYLA LUO on: 07/27/2023 10:43 AM Modules accepted: Orders [id number] Note* Addendum Note - Mckayla Luo LPN - 07/27/2023 10:43 AM EDTAddended by: MCKAYLA LUO on: 07/27/2023 10:43 AM Modules accepted: Orders [id number] Miscellaneous Notes* Addendum Note - Mckayla Luo LPN - 07/27/2023 10:43 AM EDTAddended by: MCKAYLA LUO on: 07/27/2023 10:43 AM Modules accepted: Orders * Telephone Encounter - Mckayla Luo LPN - 07/27/2023 10:42 AM EDT File pulled, orders cancelled No team meeting to cancel Added Specialty Comment ALS had already deferred EGD scheduling * Telephone Encounter - Nyla Vaz APRN - RADHA - 07/27/2023 10:03 AM EDT Agree w plan for non surg- as bmi 33 at initial visit, and she has 6 months of d/e, and will need to show weight loss. No lab or imagining yet completed. * Telephone Encounter - Emma Mcnari RN - 07/27/2023 9:47 AM EDT Patient contacted the office today, as they no longer wish to proceed with workup towards weightloss surgery. Reason for withdraw from program: Doesn't meet surgery requirements [x] Non-Surgical Program Offered [] Patient is not Interested at this time. [x] Patient is Interested in NSURG option, and forwarded to NPT for scheduling. New Psych and BNA appointments cancelled. [x] Sent to surgeons clinical pool to: [x] Clinical staff to cancel any outstanding Testing Labs Referrals Scheduled [facility] Appointments (DE/Psych/Nutrition) [x] Clinical staff to notify ALS via Clinical Documentation if EGD is to be cancelled via pool: [facility] ALS [facility] (List Surgeon as provider in the TE) [x] Clinical staff to note in specialty comment date patient has withdrawn from the program [x] Sent to [facility] and Surgical Navigation and [facility] SURG 260 Clinical therapeutic support staff for notification; Yes Route to NPT only if changing to Medical Program. Surgical Navigator will cancel Team Meeting and pull file * Telephone Encounter - Jess Owen MA - 11/08/2022 3:20 PM EDT Orders mailed * Addendum Note - ISAEL Mcclain CNP - 10/31/2022 11:00 AM EDTAddended by: NYLA VAZ on: 10/31/2022 11:00 AM Modules accepted: Orders * Telephone Encounter - ISAEL Mcclain CNP - 10/31/2022 11:00 AM EDT Signed. * Addendum Note - Jess Owen MA - 10/30/2022 11:17 AM EDTAddended by: JESS OWEN on: 10/30/2022 11:17 AM Modules accepted: Orders * Telephone Encounter - Jess Owen MA - 10/30/2022 11:10 AM EDT Orders pended, pre-op checklist scanned, EGD order sent to ALS * Telephone Encounter - Jess Owen MA - 10/30/2022 11:10 AM EDT PLAN Encounter Diagnoses Name Primary? Class 2 obesity with body mass index (BMI) of 35.0 to 35.9 in adult, unspecified obesity type, unspecified whether serious comorbidity present Primary hypertension Controlled type 2 diabetes mellitus without complication, unspecified whether nursing home insulin use(HCC) Hypothyroidism, unspecified type Back pain, unspecified back location, unspecified back pain laterality, unspecified chronicity I have recommended proceeding with the evaluation and work-up for the primary procedure as outlinedbelow: PATIENT SUMMARY Ama Rae 47 y.o. female with Body mass index is 33.23 kg/m . 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 Cheek and on Ozempic and Phenteramine/Topiromate Had recent BMI >35 with PCP - please obtain notes to document BMI> 35 and DM2 PCP: BARI DESAI INITIAL TESTING RESULTS Labwork [x] CMP, TSH, [...] related to anesthesia, conversion from laparoscopic to andopen procedure, the need for reoperative or endoscopic therapy, the potential for prolonged mechanical ventilation, and . All questions were fully answered to the patient's satisfaction and theywish to proceed with surgical intervention. A total of over 45 minute visit was spent in face to face encounter, counseling the patient, discussing the surgical/perioperative plan, record review and documentation. The patient was seen and examined independently and relevant data including a full chart rreview was performed by myself. * Telephone Encounter - Sergio Copeland - 10/25/2022 12:52 PM EDT Initial New [facility] surgical patient Navigation & Financial Counseling Discussion Patient Communication: In office SURGEON: [] JYimi [x] AD [] MP [] TB [] [...] 1) Scheduled at new pt surgeon visit: Plumbing Designer (RD) for a Nutrition Assessment (BNA) and Pre-operative Diet and Exercise (DE)appointment #1. [x] Patient reminded to arrive 15 [...] before and after surgery. documented in this [facility]04-12-2024 Telephone encounter Note* Telephone Encounter - Mckayla Luo LPN - 07/27/2023 10:42 AM EDT File pulled, orders cancelled No team meeting to cancel Added Specialty Comment ALS had already deferred EGD scheduling Wh[facility] [id number] Telephone encounter Note* Telephone Encounter - ISAEL Mcclain CNP - 07/27/2023 10:03 AM EDT Agree w plan for non surg- as bmi 33 at initial visit, and she has 6 months of d/e, and will need to show weight loss. No lab or imagining yet completed. [employer] Phone: [phone] 190-987604-12-2024 Telephone encounter Note* Telephone Encounter - Emma Mcnair RN - 07/27/2023 9:47 AM EDT Patient contacted the office today, as they no longer wish to proceed with workup towards weightloss surgery. Reason for withdraw from program: Doesn't meet surgery requirements [x] Non-Surgical Program Offered [] Patient is not Interested at this time. [x] Patient is Interested in NSURG option, and forwarded to NPT for scheduling. New Psych and BNA appointments cancelled. [x] Sent to surgeons clinical pool to: [x] Clinical staff to cancel any outstanding Testing Labs Referrals Scheduled [facility] Appointments (DE/Psych/Nutrition) [x] Clinical staff to notify ALS via Clinical Documentation if EGD is to be cancelled via pool: [facility] ALS CL[facility] (List Surgeon as provider in the TE) [x] Clinical staff to note in specialty comment date patient has withdrawn from the program [x] Sent to [facility] and Surgical Navigation and [facility] SURG 260 Clinical therapeutic support staff for notification; Yes Route to NPT only if changing to Medical Program. Surgical Navigator will cancel Team Meeting and pull file [facility] Whale [id number] [facility] SURGICAL WEIGHT LOSS MANAGEMENT PROGRAM PROGRESS NOTE FOLLOW UP Patient: Ama Avelar Date of : 1975 Service Date: 07/18/2023 DE Visit number: 2 of 6 Pre Program Weight Metrics Date of Initial Consultation:@FLOWLAST(8961)@ Initial Weight: @FLOWLAST([id number])@ Initial BMI: @FLOWLAST([id number])@ [place] Body Weight: @FLOWLAST([id number])@ Excess Body Weight: @FLOWLAST([id number])@ Follow Up Weight Metrics Last Three Weights Including Today's Weight: Wt Readings from Last 3 Encounters: 07/18/23 218 lb 6.4 oz (99.1 kg) 06/15/23 221 lb 3.2 oz (100 kg) 06/06/23 222 lb 12.8 oz (101 kg) Today's BMI: BMI: 34.46 %EBWL: % EBWL: 3% Weight Chance Since Last Visit: Weight Change: -2.8 lbs Weight Change from Initial DE/SPR Weight: Total Weight Change: -2.8 lbs Patient has the following question(s): none Falls Risk Assessment Patient does nottake medications which affect BP or mental status Patient does not have newly prescribed or changed dosage of medications within past 30 days which affect BP or mental status Patient has not fallen in the past 2 months Patient does notdemonstrate unsteady gait Patient uses the following ambulatory assistive devices: none Patient states the presence of the following traits which increases risk of fall: none Patient is not on home O2 Have you received packet of information by mail from our office which includes: Surgical Checklist, lab orders and referral information? Yes Completed by: Fara Morgan [facility] [id number] History of Present illness Narrative* Fara Morgan LPN - 07/18/2023 1:00 PM EDT [facility] [place] SURGICAL WEIGHT LOSS MANAGEMENT PROGRAM PROGRESS NOTE FOLLOW UP Patient: Ama Avelar Date of : 1975 Service Date: 07/18/2023 DE Visit number: 2 of 6 Pre Program Weight Metrics Date of Initial Consultation:@FLOWLAST(8961)@ Initial Weight: @FLOWLAST([id number])@ Initial BMI: @FLOWLAST([id number])@ [place] Body Weight: @FLOWLAST([id number])@ Excess Body Weight: @FLOWLAST([id number])@ Follow Up Weight Metrics Last Three Weights Including Today's Weight: Wt Readings from Last 3 Encounters: 07/18/23 218 lb 6.4 oz (99.1 kg) 06/15/23 221 lb 3.2 oz (100 kg) 06/06/23 222 lb 12.8 oz (101 kg) Today's BMI: BMI: 34.46 %EBWL: % EBWL: 3% Weight Chance Since Last Visit: Weight Change: -2.8 lbs Weight Change from Initial DE/SPR Weight: Total Weight Change: -2.8 lbs Patient has the following question(s): none Falls Risk Assessment Patient does nottake medications which affect BP or mental status Patient does not have newly prescribed or changed dosage of medications within past 30 days which affect BP or mental status Patient has not fallen in the past 2 months Patient does notdemonstrate unsteady gait Patient uses the following ambulatory assistive devices: none Patient states the presence of the following traits which increases risk of fall: none Patient is not on home O2 Have you received packet of information by mail from our office which includes: Surgical Checklist,lab orders and referral information? Yes Completed by: Fara Morgan LPN * Lois Barajas MD - 07/18/2023 1:00 PM EDT HPI, PHYSICAL EXAM, AND PLAN Patient is here today for follow up of their physician supervised diet and exercise in preparation for weight loss surgery. Weight trend since last visit: lost 3 lb over 1 month stable This patient's excess weight is causing the following co-morbid conditions at this time DM Plan: Physical Examination: BP 116/79 Pulse 67 Ht 5' 6.75 (1.695 m) Wt 218 lb 6.4 oz (99.1 kg) BMI 34.46 kg/m General: This patient is alert and oriented X3 General: This patient is awake, alert, and oriented, and is in no apparent distress. Extremities: No cyanosis, clubbing or edema/ No calf tenderness/No restrictions of movement, is ambulatory without assistance. Neurological: Intact x 4 extremities, no focal deficits notes. Skin: No rashes or lesions noted. Assessment of Current Diet and Exercise Current Diet This patient s current diet is: 80% meal plan Her diet contains adequate amounts of protein, inadequate amounts of healthy fats, adequate amountsof green, leafy vegetables, and adequate amounts of fruits. Her comfort foods include: none Current Activity This patient currently does exercise for 30 Minutes per session, 4 times per week, including the following: walking. Current Eating Behaviors This patients demonstrates the following behaviors as they relate to her eating: structured She eats approximately 5-6 times per day. Her last meal/snack was at 6 am/pm. Plan: DM: continue medical management, DE and plan for metabolic weight loss surgery. stable. continue medical management, Diet & Exercise, and plan for metabolic weight loss surgery. Advised patient that She must continue to adhere to regular monthly visits to meet the requirementsof her insurance company. Additionally, She is to adopt eating plan recommendations and show weight loss trend to demonstratereadiness for the changes that will be required following surgery. Patient's weight pattern does demonstrates meal plan adoption and weight loss each month Physician Diet Recommendations provided in Patient Instructions Patient: [x] To return in one month for follow up. Comorbids managing [] Has completed insurance required monthly diet and exercise series [] Needs to continue monthly visits until surgery Current Meds Patient's Medications New Prescriptions No medications on file Previous Medications ALPRAZOLAM (XANAX) 1 MG TABLET Take 1 mg by mouth. ATENOLOL (TENORMIN) 25 MG TABLET Take 25 mg by mouth in the morning and 25 mg in the evening. CHOLECALCIFEROL (VITAMIN D3 PO) Take by mouth. CYANOCOBALAMIN (B-12 COMPLIANCE INJECTION) 1000 MCG/ML KIT Inject as directed. Every 3 weeks EMPAGLIFLOZIN (JARDIANCE) 10 MG Take by mouth daily. EPINEPHRINE (EPIPEN) 0.3 MG/0.3ML INJECTION SYRINGE Inject 0.3 mg into the shoulder, thigh, or buttocks. LEVOTHYROXINE (SYNTHROID, LEVOXYL) 112 MCG TABLET Take 137 mcg by mouth daily. MAGNESIUM OXIDE (MAG-200 PO) Take by mouth daily. NYSTATIN (MYCOSTATIN) CREAM Apply to abdominal skin fold TWICE DAILY OZEMPIC, 1 MG/DOSE, 4 MG/3ML SOLUTION PEN-INJECTOR Modified Medications No medications on file Discontinued Medications No medications on file I spend a total of 20 minutes on the same day of the visit in discussing/counseling the patient regarding the diet and exercise in the preparation for weight loss surgery.Education on the meal plan and 7 rules of eating is provided. Meal prep is encouraged as a foundation of the meal plan. Food journal is encouraged as a feedback system before and after bariatric surgery. Counseling on no nicotine/alcohol before and after surgery. Exercise and its role in the preparation for weight loss surgery is explained. DM Is associated with obesity and weight loss is discussed as a treatment option for DM Full chart review was performed.Clinical documentation is updated and completed. documented in this [facility]03-01-2024 History of Present illness Narrative* Elvia Ballard MA - 06/15/2023 7:30 AM EST [facility] SURGICAL WEIGHT LOSS MANAGEMENT PROGRAM SUPERVISED DIET AND EXERCISE ROOMING: INITIAL VISIT Patient: Ama Avelar Date of : 1975 Service Date: 06/15/2023 Patient is here today to initiate physician-supervised diet and exercise as required by their insurance company prior to approval for weight loss surgery. This patient is alone for the evaluation today This is visit 1 of 6 required visits. Weight Metrics: (From Surgical Wet Loss Management) Today's Vital Signs: Non-Surgical Initial Eval Consult Date: 06/15/23 Initial Height: 5' 6.75 (169.5 cm) Initial Weight: 221 lb 3.2 oz (100 kg) [place] Body Weight: 140 lb (63.5 kg) Initial BMI: 34.90 Initial Body Fat %: 41.88 EBW: 81 lb (From NonSurgical Weight Loss Tracker) Falls Risk Assessment Patient does take medications which affect BP or mental status Patient does not have newly prescribed or changed dosage of medications within past 30 days which affect BP or mental status Patient has not fallen in the past 2 months Patient uses the following ambulatory assistive devices: none Patient states the presence of the following traits which increases risk of fall: none Patient is noton home O2 Have you received packet of information by mail from our office which includes: Surgical Checklist,lab orders & referral information? Yes Completed by: Elvia Ballard MA * Lois Barajas MD - 06/15/2023 7:30 AM EST [facility] SURGICAL WEIGHT LOSS MANAGEMENT PROGRAM PHYSICIAN SUPERVISED DIET AND EXERCISE SURGICAL PREPARATORY REGIMEN PROGRESS NOTE INITIAL EVALUATION Patient: Ama Avelar Service Date: 06/15/23 Date of : 1975 Navigation Plan: Patient History/Assessment Summary: The patient is a pleasant 48 y.o. year old female, who stands Height: 5' 6.75 (169.5 cm) tall witha weight of Weight: 221 lb 3.2 oz (100 kg) pounds, resulting in a BMI of Body mass index is 34.9 kg/m . kg/m2. She has been overweight for 10+ years, has tried and failed multiple previous diet attempts, and is now in the process of undergoing evaluation for surgical treatment of their obese. She is here today to initiate monthly physician supervised diet and exercise as part of their surgical preparatory regimen. History: Past Medical History: Diagnosis Date Abdominal pain [...] Substance Use Topics Alcohol use: Not Currently This patient's excess weight is causing the following co-morbid conditions at this time:DM Initial Diet & Exercise/SPR Visit Weight Metrics: Date of Initial Diet & Exercise Visit: Consult Date: 06/15/23 Initial Weight: Initial Weight: 221 lb 3.2 oz (100 kg) Initial BMI: Initial BMI: 34.90 [place] Body Weight: [place] Body Weight: 140 lb (63.5 kg) Excess Body Weight: EBW: 81 lb General: This patient is alert and oriented X3 Physical Examination: BP 117/82 Pulse 61 Ht 5' 6.75 (1.695 m) Wt 221 lb 3.2 oz (100 kg) BMI 34.90 kg/m General: This patient is obese, and is in no apparent distress. Psychological: Patient is awake, alert and oriented to person, place and time Patient's mood is normal affect Current Diet This patient s current diet is: 80% meal plan Reviewed PAST DIET HISTORY FORM and CURRENT DIET HISTORY FORM with patient (located in Network Coordinator) Her diet contains adequate amounts of protein, adequate amounts of healthy fats, adequate amounts of green, leafy vegetables, and adequate amounts of fruits. Her comfort foods include: none Current Activity This patient currently does exercise for 30+ per session, 5 times per week, including the following: walking. Current Eating Behaviors This patients demonstrates the following behaviors as they relate to her eating: structured She eats approximately 5-6 times per day. Her last meal/snack was at 6 PM. Plan: Diagnosis Managing: DM: continue medical management, DE and plan for metabolic weight loss surgery.stable. continue medical management, Diet & Exercise, and plan for metabolic weight loss surgery. Off ozempic on jardiance Advised patient that She must adhere to regular monthly visits to meet the requirements of her insurance company. Additionally, She must lose approximately one pound per month to demonstrate readiness for the changes that will be required following surgery. Physician Diet Recommendations provided to patient Patient to return for follow up in one month Current Meds Patient's Medications New Prescriptions No medications on file Previous Medications ALPRAZOLAM (XANAX) 1 MG TABLET Take 1 mg by mouth. ATENOLOL (TENORMIN) 25 MG TABLET Take 25 mg by mouth in the morning and 25 mg in the evening. CHOLECALCIFEROL (VITAMIN D3 PO) Take by mouth. CYANOCOBALAMIN (B-12 COMPLIANCE INJECTION) 1000 MCG/ML KIT Inject as directed. Every 3 weeks EMPAGLIFLOZIN (JARDIANCE) 10 MG Take by mouth daily. EPINEPHRINE (EPIPEN) 0.3 MG/0.3ML INJECTION SYRINGE Inject 0.3 mg into the shoulder, thigh, or buttocks. LEVOTHYROXINE (SYNTHROID, LEVOXYL) 112 MCG TABLET Take 137 mcg by mouth daily. MAGNESIUM OXIDE (MAG-200 PO) Take by mouth daily. NYSTATIN (MYCOSTATIN) CREAM Apply to abdominal skin fold TWICE DAILY OZEMPIC, 1 MG/DOSE, 4 MG/3ML SOLUTION PEN-INJECTOR Modified Medications No medications on file Discontinued Medications No medications on file I spent a total of 45 minutes on the day of the visit in counseling, discussing lifestyle changes that are pertinent to a successful life after bariatric surgery; and reviewing the chart including available communication from the surgeon. 1.Education on meal plan,meal structure, meal preps, shopping list 2. Discussion on elements of behavioral strategies such self-monitoring, controlling and modifying the stimuli that activate eating;slowing down the eating process;goal-setting on the process,behavioral jesus and reinforcement,cognitive restructuring, problem-solving,assertiveness training. 3. Physical activity - build fitness to aerobic physical activity 150-300 min/wk and strength training 2-3 times per wk 4.Recommendation on do not use nicotine and alcohol before and after surgery is provided 5. For women of childbearing age recommendation to postpone until 12- 18 month after surgery is provided 6.DM Is associated with obesity and weight loss is discussed as a treatment option for DM 7. Healthy lifestyle habits and their role in success after bariatric surgery discussed The patient was seen and a full chart review was performed.Clinical documentation is updated and completed. documented in this [facility]02-21-2024 History of Present illness Narrative* Melissa Rdz, RD - 06/06/2023 9:00 AM EST [facility] BARIATRIC NUTRITION ASSESSMENT / DIET & EXERCISE SURGICAL WEIGHT LOSS MANAGEMENT PROGRAM Date: 06/06/23 Patient Name: Ama Avelar Date of : 1975 Type of Assessment: [x] Surgical Patient - Pre-op Initial Assessment Weight Metrics: Today's Height: 5' 6.75 (1.695 m) Today's Weight: 222 lb 12.8 oz (101 kg) Today's BMI: Body mass index is 35.16 kg/m . Surgeon: Dr. Rae Surgical Procedure: [x] Sleeve Gastrectomy Preop Diet: 0 wks Medical History: Past Medical History: Diagnosis Date Abdominal pain Anxiety Back pain Daytime sleepiness Diabetes type 2, controlled (HCC) Fatigue GERD (gastroesophageal reflux disease) Hypertension Hypertension Hypothyroidism Joint pain Snoring Stomach ulcer Vitamin D deficiency Current Medications: has a current medication list which includes the following prescription(s): alprazolam, atenolol, cholecalciferol, epinephrine, levothyroxine, nystatin, and ozempic (1 mg/dose). Weight History Patient has been considering weight loss surgery for 2 years Primary reason(s) for weight loss permanent wt loss Number of years over weight > 10 PREVIOUS WEIGHT LOSS ATTEMPTS Method When Amount lost Amount regained Most successful Keto 3 yr ago 100 lb in 10 mo some Keto + IF current none Post Weight Loss Surgery- Type: Patient's current diet quality, relative to the Past weight loss surgery diet is: [x] N/A CURRENT MEAL PLANNING Self Meals planned by X Food shopping done by X Meals cooked by X EXERCISE/CURRENT ACTIVITY None; used to go to gym 3-4x/wk cardio CURRENT EATING HABITS/ADDITIONAL INFORMATION 24 Hour Recall completed: Yes Breakfast: none Snack: none Lunch: chicken breast Dinner: low carb wrap with tuna Snack: string cheese, beef jerky, peanuts crushed with SF pudding Drinks: >64 oz/day water; no juice; no pop; no etoh Comments: Keto and/or IF SUPPORT SYSTEM A. Family knowledgeable about/supportive of plans for weight loss surgery: Yes B. Patient understands that they must have someone in their home 06/11 for the first week following surgery, or that they must be able to stay with someone for the first week Yes C. 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 Current eating practices that will require change with surgery: Meal frequency RECOMMENDATIONS AND PLAN [x] Educational Materials Provided [x]Strategies for Eating handout given to and discussed with patient [x] Patient cleared for weight loss surgery Patient able to state major diet changes that need to be made following surgery Patient states/demonstrates readiness to make necessary diet changes Diagnoses: T2DM Note: Pt presents for initial BNA. D/E to begin 06/15/2023-6M. Per diet recall and pt interview, pt currently following both Keto and IF. Pt Kcal currently inadequate, around 800 Kcal/day; pt did go off keto yesterday. Reviewed rationale for frequent meals and protein throughout the day. Pt drinks >64 oz/day water. Reviewed BNA packet and rationale for post-op bariatric diet protocol. Pt agreeable to, and aided in developing, the goals as noted below. Pt cleared by nutrition for WLS. Pt informed at time of visit. Goals: (1) Discontinue Keto and IF (2) Pair carb + pro q meal Materials Provided: BNA Packet Follow up: PRN Pt encouraged to call/MyChart with questions. Bariatric Nutrition Assessment completed by: Melissa Rdz RD documented in this [facility]11-11-2023 Hospital Discharge instructions Patient Education 02/24/2023 21:51:34 [...] find the cause of your pain. If needed,you will have tests. Belly pain has many [...] foods again, start with small amounts of dgoy-gw-pesnzj, low- fat foods. These include apple sauce, toast, or [...] increase stomach acid. Don't use aspirin or uxcr-ozz-pgrywpy pain and fever medicines, if possible. This includes nonsteroidal anti-inflammatory drugs (NSAIDs). Lose excess weight. Finish eating at least 2 hours before you go to bed or lie down. Raise the head of your bed. 9086-7500 [employer]. [address] [place] [address], [place] [address]. All rights reserved. This information is not intended as a substitute for professional medical care. Always follow yourhealthcare professional's instructions. Follow Up Care 02/24/2023 20:23:13 With:BARI HIGUERA MD Address: [address] [place] [id number] [phone] When:2-[facility] days [facility] [place] [facility]11-[facility] Note Discharge Instructions Thank you for allowing [facility] to assist you with your healthcare needs. The following is importantdischarge information regarding your hospital visit. Diagnosis from Today's Visit Flank pain What to Do Next Instructions from Your Care Team No qualifying data available. Post Acute Orders No qualifying data available. You Need to Schedule the Following Appointments Follow Up with BARI HIGUERA MD When Within 2-4 days Where: [address] [place] [address] [phone] Allergies Zofran Medications Please ask your primary doctor or pharmacist before taking any other medication not listed, including over the counter drugs, herbal medications, vitamins and or supplements as they may interact withyour home medications. What How Much When Instructions [...] find the cause of your pain. If needed,you will have tests. Belly pain has many [...] foods again, start with small amounts of ieeh-ui-anukqk, low- fat foods. These include apple sauce, toast, or [...] increase stomach acid. Don't use aspirin or xcyn-krp-pypujuw pain and fever medicines, if possible. This includes nonsteroidal anti-inflammatory drugs (NSAIDs). Lose excess weight. Finish eating at least 2 hours before you go to bed or lie down. Raise the head of your bed. 9695-7228 [employer]. [address] [place] [address], [place] [id number]. All rights reserved. This information is not intended as a substitute for professional medical care. Always follow yourhealthcare professional's instructions. Additional Information VACCINATE! IT SAVES LIVES! Members of the community who have not yet received the COVID-19 vaccine and would like to receive it can visit one of [facility] vaccine clinics. There are many vaccine clinic locations within the [facility]. For locations and available times, please visit www.gettheshot.coronavirus.[place].gov/. It is important to note that some COVID mobile vaccine clinics are held outdoors and may be canceled in rainy or stormy conditions. To learn more about pediatric vaccinations (ages 5-11), we invite you to visit the [facility] webpage. https://www.[facility].org/pages/6461-Dkjpf-Emqfuhmajas-Liquvetwpk-Hkbip-Hpb stions.htmlTo learn more about the COVID-19 vaccine, we invite you to visit the CDC website for a list of frequently asked questions. https://www.cdc.gov/coronavirus/2019-ncov/vaccines/faq.html [facility] Patient Portal Access Instructions: Stay connected with your healthcare team and access your personal medical information anytime with the [facility] Patient Portal. If you would like a full copy of your medical records please contact the [facility] Medical Records Department Sunday through Sunday between 8a.m. and 4:30p.m. Please follow the directions below to access the portal: 1.Access the email account you provided upon registration to the [facility].2.Look for an invitation email from [facility].3.Open the email and access the invitation link: Accept [facility]itation to [facility]4.Fill in the required roe to create your [...] you will allow to register on the [facility] Patient Portal for access to your information. You can also access the [facility] Patient Portal on the [facility]. Simply click on Health Records under [employer] and then click on the [facility] logo. HOW TO SAFELY DISPOSE OF PRESCRIPTION MEDICATIONS Please use one of the following methods to safely dispose of your unused medications. 1.Use a drug disposal kit: the drug disposal pouch allows you to safely discard your old and unuseddrugs. Ask your nurse to give you one when you are discharged.2.Visit a local take-back location: Many local pharmacies and police departments have programs that collect old and unwanted prescriptiondrugs. Call your local pharmacy or go to http://Bathrooms.com.HELIX BIOMEDIX/9E1Fu0k to find one close to you.3.Make use of household items: Use cat litter or old coffee grounds to dispose medications if other options arenot available. Mix your drugs with these household products, seal them in an airtight container andthrow it into the garbage. Call [facility]: [phone] to be sure your drugs can be [...] drowsiness, such as benzodiazepines, also known as benzos,including diazepam and alprazolam, muscle relaxants or sleep aids. Never sell or share prescriptionopioids. This is illegal. Store opioids in a secure place and out of reach of others (including children, family, friends and visitors). The last page(s) of this document has been signed and retained as a CHART COPY Signatures Patient Education Materials Abdominal Pain Medication Leaflets My discharge plan and instructions have been reviewed and explained to me and I,GREEN AMA understand my current condition and have read and understand these discharge instructions. I have received a written copy of the plan/instructions. If I have questions, I am aware that I should contact my doctor. Patient/Informatics Coordinator Signature: Date/Time: Relationship to Patient: Witness Name/Signature: Date/Time: [facility]10-04-2023 Miscellaneous Notes* Telephone Encounter - Consuelo Silver RN - 01/17/2023 4:28 PM EDT All Davis MD P [facility] General Surgery Pool Have a release of information form in my upper outbox. This needs to be sent to [facility] to obtain her reduction mammoplasty and abdominoplasty operative report from 2021. I am also asking that a mammogram and ultrasound report and images be pushed into our system from [facility]. Once we have these items please reschedule the patient for follow-up office visit. Thanks-[facility] Medical records release faxed to [facility] in [place] at [phone]-fax confirmation sheet received. Printed from [facility] medical records: 08/09/22 mammogram and ultrasound, 09/19/22 gastric emptying study, and 10/17/22 CT of abdomen and pelvis. All reports scanned into Epic. Requested all images to be pushed in Epic. Consuelo Silver RN [facility] History of Present illness Narrative* All Davis MD - 01/16/2023 7:04 PM EDT HISTORY AND PHYSICAL Ama Avelar 1975 REFERRING PHYSICIAN: No ref. provider found CHIEF COMPLAINT: Consult (Lower abdominal pain/ seen in [facility] ER 10/17/22) HPI: The patient is a [...] she had an upper endoscopy room in [place] where they told her she had a significant hiatal hernia and this was the cause of reflux symptoms. The patient has been on proton pump inhibitors. She stillnotes reflux. She is interested in further evaluation aside of antireflux surgery is appropriate for her. The patient had lost approximately 60 to 70 pounds of weight. She now notes a significant lower abdominal pannus which tends to rest against her pubic area and she notes irritation including frequentmacerated skin and what are likely yeast infections. She is interested in panniculectomy. The patient was initially referred to the reflux center at [facility]. She denied of having endoscopy at that location. The patient did have upper endoscopy for abdominal pain with nausea performed on August 02, 2022 at [facility] by Dr. Roy. This demonstrated gastritis duodenitis and reflux esophagitis but no hiatal hernia. It was recommended she take Protonix and Carafate. She notes that overall her reflux symptoms have improved. The patient was evaluated at [facility] by Dr. Cheek. He performed abdominoplasty [...] CT scan of the abdomen pelvis at [facility] on October 17, 2022. This demonstrated resolution of the seroma noted on a CTscan on December 24, 2021 and from a [...] ONCE DAILY for TEN days A MONTH tostart menses (Patient not taking: Reported on 02/02/2021) [...] entered by the nurse and reviewed by de Nursing Notes: Hallie Brice LPN 01/16/2023 2:57 [...] failure, other cardiac issues, denies claudication, denies coldfeet, denies peripheral arterial stent. Respiratory: The patient [...] nourished, well hydrated in no acute distress. Thepatient is oriented to time, place, and person. VITALS: Blood pressure 118/82, pulse 90, temperature 36.3 C (97.4 F), height 167.6 cm (5' 6), weight 99.3 kg (219 lb), SpO2 98 %. HEENT: Normal cephalic, ataumatic, pupils are equally round, sclera are anicteric, mucous membranesare moist, oropharynx is clear. Neck has no [...] areolar complex which was spitting which was actuallyable to remove with gentle traction. LABORATORY VALUES: As Noted RADIOLOGIC STUDIES: As Noted Assessment IMPRESSION: Pain along left lower panniculectomy incision pain at area of left 6 o'clock position of breast. PLAN: I have asked the patient to fill a release of information form to try to get copies of the operative reports from [facility]. I would also asked that the [...] the above studies have been obtained. All Davis MD documented in this encounterTri[facility]10-03-2023 Nurse Note* Hallie Brice LPN - 01/16/2023 2:54 PM EDT REVIEW OF SYSTEMS: General: The patient NOTES [...] failure, other cardiac issues, denies claudication, denies coldfeet, denies peripheral arterial stent. Respiratory: The patient [...] COLONOSCOPY Hallie Brice LPN documented in this encounterTrihealth Good Samar[facility]09-25-2023 Telephone encounter Note * Telephone Encounter - Yenifer Sanon - 01/08/2023 7:36 AM EDT Name of caller: Ama Contact phone number: [phone] Relationship to Patient: Patient Provider: Dr. Rdz Practice: Weight Management Chief Complaint/Reason for Call: Ama called in to cancel her appt today. She woke up not feeling well. She will call back later to reschedule. Please advise. Best time of day caller can be reached: Any Patient advised that office/PCP has 24-48 business hours to return their call: No [id number] Miscellaneous Notes* Telephone Encounter - Yenifer Sanon - 01/08/2023 7:36 AM EDT Name of caller: Ama Contact phone number: [phone] Relationship to Patient: Patient Provider: Dr. Rdz Practice: Weight Management Chief Complaint/Reason for Call: Ama called in to cancel her appt today. She woke up not feeling well. She will call back later to reschedule. Please advise. Best time of day caller can be reached: Any Patient advised that office/PCP has 24-48 business hours to return their call: No documented in this encounterSCleveland Clinic Union HospitalDkncqc68-50-2081 NoteShe needs to return to plastic surgery for evaluation after her recent plastic surgery, thanks.[facility]09-06-2023 Telephone encounter Note* Telephone Encounter - Reina Finley RN - 12/20/2022 12:48 PM EDT AGD Last OV-10/25/22 with AGD for new pt appt. Pt has not been seen by RD as it was cancelled,as well asappt with NK on 11/15/22, by pt. Will route to RN MDS for direction as pt should follow up with plastic surgeon but does not want to go back. [place] [id number] Miscellaneous Notes* Telephone Encounter - Reina Finley RN - 12/20/2022 12:48 PM EDT AGD Last OV-10/25/22 with AGD for new pt appt. Pt has not been seen by RD as it was cancelled,as well asappt with NK on 11/15/22, by pt. Will route to RN MDS for direction as pt should follow up with plastic surgeon but does not want to go back. * Telephone Encounter - Frank Ulloa - 12/20/2022 12:36 PM EDT Name of Caller: Ama Contact Reason for Appointment: Patient states that the surgery was done by Dr. Escalona and it has left her very disfigured with increased pain. She states that she does not want to go and see him again. Please advise. Office Name: [facility] Medication Refills need, if any: none Medication Name: n/a * Telephone Encounter - Vicki Cat PA-C - 12/20/2022 11:46 AM EDT She needs to return to plastic surgery for evaluation after her recent plastic surgery, thanks. * Telephone Encounter - Srikanth Torres - 12/20/2022 11:23 AM EDT Pt would like to have an appt scheduled w Dr. Rae due to pain in her abdomen from what she believesis from an abdominoplasty she had in 2021. She states that she had called [facility] yesterday and they directed her to call this office for help with this issue. She is however actively in the [facility] program. documented in this encounterSCleveland Clinic Union [id number] Telephone encounter Note* Telephone Encounter - Tundekacie Ulloa - 12/20/2022 12:36 PM EDT Name of Caller: Ama Contact Reason for Appointment: Patient states that the surgery was done by Dr. Escalona and it has left her very disfigured with increased pain. She states that she does not want to go and see him again. Please advise. Office Name: [facility] Medication Refills need, if any: none Medication Name: n/a [facility] [id number] Telephone encounter Note* Telephone Encounter - Vicki Cat PA-C - 12/20/2022 11:46 AM EDT She needs to return to plastic surgery for evaluation after her recent plastic surgery, thanks. [facility] [employer] Work Phone: 1(370) 610-546909-06-2023 Telephone encounter Note* Telephone Encounter - Srikanth Torres - 12/20/2022 11:23 AM EDT Pt would like to have an appt scheduled w Dr. Rae due to pain in her abdomen from what she believesis from an abdominoplasty she had in 2021. She states that she had called [facility] yesterday and they directed her to call this office for help with this issue. She is however actively in the [facility] program. [facility] [id number] Telephone encounter Note* Telephone Encounter - Jess Owen MA - 11/08/2022 3:20 PM EDT Orders mailed [facility] [id number] Note* Addendum Note - ISAEL Mcclain CNP - 10/31/2022 11:00 AM EDTAddended by: NYLA VAZ on: 10/31/2022 11:00 AM Modules accepted: Orders [place] [id number] Note* Addendum Note - ISAEL Mcclain CNP - 10/31/2022 11:00 AM EDTAddended by: NYLA VAZ on: 10/31/2022 11:00 AM Modules accepted: Orders [place] [id number] Note* Addendum Note - ISAEL Mcclain CNP - 10/31/2022 11:00 AM EDTAddended by: NYLA VAZ on: 10/31/2022 11:00 AM Modules accepted: Orders [place] [id number] Note* Addendum Note - ISAEL Mcclain CNP - 10/31/2022 11:00 AM EDTAddended by: NYLA VAZ on: 10/31/2022 11:00 AM Modules accepted: Orders [place] [id number] Telephone encounter Note* Telephone Encounter - ISAEL Mcclain CNP - 10/31/2022 11:00 AM EDT Signed. [place] [id number] Note* Addendum Note - Jess Owen MA - 10/30/2022 11:17 AM EDTAddended by: JESS OWEN on: 10/30/2022 11:17 AM Modules accepted: Orders [id number] Note* Addendum Note - Jess Owen MA - 10/30/2022 11:17 AM EDTAddended by: JESS OWEN on: 10/30/2022 11:17 AM Modules accepted: Orders [id number] Note* Addendum Note - Jess Owen MA - 10/30/2022 11:17 AM EDTAddended by: JESS OWEN on: 10/30/2022 11:17 AM Modules accepted: Orders [id number] Note* Addendum Note - Jess Owen MA - 10/30/2022 11:17 AM EDTAddended by: JESS OWEN on: 10/30/2022 11:17 AM Modules accepted: Orders [id number] Note* Addendum Note - Jess Owen MA - 10/30/2022 11:17 AM EDTAddended by: JESS OWEN on: 10/30/2022 11:17 AM Modules accepted: Orders [id number] Miscellaneous Notes* Addendum Note - Jess Owen MA - 10/30/2022 11:17 AM EDTAddended by: JESS OWEN on: 10/30/2022 11:17 AM Modules accepted: Orders * Telephone Encounter - Jess Owen MA - 10/30/2022 11:10 AM EDT Orders pended, pre-op checklist scanned, EGD order sent to [facility] * Telephone Encounter - Jess Owen MA - 10/30/2022 11:10 AM EDT PLAN Encounter Diagnoses Name Primary? Class 2 obesity with body mass index (BMI) of 35.0 to 35.9 in adult, unspecified obesity type, unspecified whether serious comorbidity present Primary hypertension Controlled type 2 diabetes mellitus without complication, unspecified whether parts counterman insulin use(HCC) Hypothyroidism, unspecified type Back pain, unspecified back location, unspecified back pain laterality, unspecified chronicity I have recommended proceeding with the evaluation and work-up for the primary procedure as outlinedbelow: PATIENT SUMMARY Ama Rae 47 y.o. female with Body mass index is 33.23 kg/m . 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 Cheek and on Ozempic and Phenteramine/Topiromate Had recent BMI >35 with PCP - please obtain notes to document BMI> 35 and DM2 PCP: BARI DESAI INITIAL TESTING RESULTS Labwork [x] CMP, TSH, [...] related to anesthesia, conversion from laparoscopic to andopen procedure, the need for reoperative or endoscopic therapy, the potential for prolonged mechanical ventilation, and . All questions were fully answered to the patient's satisfaction and theywish to proceed with surgical intervention. A total of over 45 minute visit was spent in face to face encounter, counseling the patient, discussing the surgical/perioperative plan, record review and documentation. The patient was seen and examined independently and relevant data including a full chart rreview was performed by myself. * Telephone Encounter - Sergoi Copeland - 10/25/2022 12:52 PM EDT Initial New [facility] surgical patient Navigation & Financial Counseling Discussion [...] [] YES [] NO PRIMARY INSURANCE: Pay[place]: [place] / Plan: [place] ODM / Product Type: Medicaid HMO [...] 1) Scheduled at new pt surgeon visit: Plumbing Designer (RD) for a Nutrition Assessment (BNA) and Pre-operative Diet and Exercise (DE)appointment #1. [x] Patient reminded to arrive 15 [...] before and after surgery. documented in this [facility]07-17-2023 History of Present illness Narrative* Jess Owen MA - 10/30/2022 11:13 AM EDT ENDOSCOPY ORDERS To be scheduled with: Dr. Rae Patient is: Pre-op/Pre-Bariatric Surgery CPT code: EGD with biopsy- CPT 66579 Diagnosis: Dyspepsia- K30 If pre-op, Diet & Exercise Requirements are, and started/scheduled on 11/15/2022: 6 months Home O2: No Known Difficult Intubation: No * Lainey Schuler MA - 10/30/2022 11:13 AM EDT No currents appts in program * Ama Sweeney LPN - 10/30/2022 11:13 AM EDT Spoke with patient and has a in family she is making arrangements for and will be contacting office in 1-2 weeks to get back on track. * Ivett Garay MA - 10/30/2022 11:13 AM EDT 01/09/23 LVM to schedule EGD. * Ivett Garay MA - 10/30/2022 11:13 AM EDT 01/11/23 Spoke to the patient. She states she had an EGD done at another facility a few months ago. I advised her to contact the office to let you know where it was done and who performed as you willneed to obtain records. You may want to reach out to her as well. Will wait for further instructions regarding scheduling EGD. Thanks. * Ama Sweeney LPN - 10/30/2022 11:13 AM EDT Spoke with patient and she states had a GES done 09/19/2022 and EGD done 08/02/[address] Dr Roy 's office @ [phone] and requested reports to be faxed to our office. documented in this [facility]07-17-2023 History of Present illness Narrative* Jess Owen MA - 10/30/2022 11:13 AM EDT ENDOSCOPY ORDERS To be scheduled with: Dr. Rae Patient is: Pre-op/Pre-Bariatric Surgery CPT code: EGD with biopsy- CPT 98736 Diagnosis: Dyspepsia- K30 If pre-op, Diet & Exercise Requirements are, and started/scheduled on 11/15/2022: 6 months Home O2: No Known Difficult Intubation: No * Lainey Schuler MA - 10/30/2022 11:13 AM EDT No currents appts in program * Ama Sweeney LPN - 10/30/2022 11:13 AM EDT Spoke with patient and has a in family she is making arrangements for and will be contacting office in 1-2 weeks to get back on track. * Ivett Garay MA - 10/30/2022 11:13 AM EDT 01/09/23 LVM to schedule EGD. * Ivett Garay MA - 10/30/2022 11:13 AM EDT 01/11/23 Spoke to the patient. She states she had an EGD done at another facility a few months ago. I advised her to contact the office to let you know where it was done and who performed as you willneed to obtain records. You may want to reach out to her as well. Will wait for further instructions regarding scheduling EGD. Thanks. * Ama Sweeney LPN - 10/30/2022 11:13 AM EDT Spoke with patient and she states had a GES done 09/19/2022 and EGD done 08/02/[address] Dr Roy 's office @ [phone] and requested reports to be faxed to our office. * Ama Sweeney LPN - 10/30/2022 11:13 AM EDT Records received and placed in physician folder for review. documented in this [facility]07-17-2023 History of Present illness Narrative* Jess Owen MA - 10/30/2022 11:13 AM EDT ENDOSCOPY ORDERS To be scheduled with: Dr. Rae Patient is: Pre-op/Pre-Bariatric Surgery CPT code: EGD with biopsy- CPT 69519 Diagnosis: Dyspepsia- K30 If pre-op, Diet & Exercise Requirements are, and started/scheduled on 11/15/2022: 6 months Home O2: No Known Difficult Intubation: No * Lainey Schuler MA - 10/30/2022 11:13 AM EDT No currents appts in program * Ama Sweeney LPN - 10/30/2022 11:13 AM EDT Spoke with patient and has a in family she is making arrangements for and will be contacting office in 1-2 weeks to get back on track. * Ivett Garay MA - 10/30/2022 11:13 AM EDT 01/09/23 [facility] to schedule EGD. * Ivett Garay MA - 10/30/2022 11:13 AM EDT 01/11/23 Spoke to the patient. She states she had an EGD done at another facility a few months ago. I advised her to contact the office to let you know where it was done and who performed as you willneed to obtain records. You may want to reach out to her as well. Will wait for further instructions regarding scheduling EGD. Thanks. * Ama Sweeney LPN - 10/30/2022 11:13 AM EDT Spoke with patient and she states had a GES done 09/19/2022 and EGD done 08/02/[address] Dr Roy 's office @ [phone] and requested reports to be faxed to our office. * Ama Sweeney LPN - 10/30/2022 11:13 AM EDT Records received and placed in physician folder for review. documented in this encounterSCleveland Clinic Union [id number] Telephone encounter Note* Telephone Encounter - Jess Owen MA - 10/30/2022 11:10 AM EDT Orders pended, pre-op checklist scanned, [facility] to [facility] [id number] Telephone encounter Note* Telephone Encounter - Jess Owen MA - 10/30/2022 11:10 AM EDT PLAN Encounter Diagnoses Name Primary? Class 2 obesity with body mass index (BMI) of 35.0 to 35.9 in adult, unspecified obesity type, unspecified whether serious comorbidity present Primary hypertension Controlled type 2 diabetes mellitus without complication, unspecified whether nursing home insulin use(HCC) Hypothyroidism, unspecified type Back pain, unspecified back location, unspecified back pain laterality, unspecified chronicity I have recommended proceeding with the evaluation and work-up for the primary procedure as outlinedbelow: PATIENT SUMMARY Ama Rae 47 y.o. female with Body mass index is 33.23 kg/m . 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 Cheek and on Ozempic and Phenteramine/Topiromate Had recent BMI >35 with PCP - please obtain notes to document BMI> 35 and DM2 PCP: BARI DESAI INITIAL TESTING RESULTS Labwork [x] CMP, TSH, [...] CONSULTATIONS CLEARANCE / MANAGEMENT Psychology [x] Dr. Serrano [x] Cardiology [x] [] not ordered Pulmonary [...] related to anesthesia, conversion from laparoscopic to andopen procedure, the need for reoperative or endoscopic therapy, the potential for prolonged mechanical ventilation, and . All questions were fully answered to the patient's satisfaction and theywish to proceed with surgical intervention. A total of over 45 minute visit was spent in face to face encounter, counseling the patient, discussing the surgical/perioperative plan, record review and documentation. The patient was seen and examined independently and relevant data including a full chart rreview was performed by myself. [facility]07-12-2023 NoteInitial [facility] surgical patient Navigation & Financial Counseling Discussion Patient Communication: In office SURGEON: [] JYimi [x] AD [] MP [] TB [] [...] 1) Scheduled at new pt surgeon visit: Plumbing Designer (RD) for a Nutrition Assessment (BNA) and [...] communications and lab/testing results before and after surgery.[facility]07-12-2023 Telephone encounter Note* Telephone Encounter - Sergio Copeland - 10/25/2022 12:52 PM EDT Initial New [facility] surgical patient Navigation & Financial Counseling Discussion [...] [] YES [] NO PRIMARY INSURANCE: [facility] / Plan: [place] ODM / [...] 1) Scheduled at new pt surgeon visit: Plumbing Designer (RD) for a Nutrition Assessment (BNA) and Pre-operative Diet and Exercise (DE)appointment #1. [x] Patient reminded to arrive 15 [...] and lab/testing results before and after surgery. [facility] [id number] History of Present illness Narrative* Brenna Park - 10/25/2022 12:30 PM EDT [facility] SURGICAL WEIGHT LOSS MANAGEMENT PROGRAM Rooming Note [...] on home O2 Completed by: Brenna Park * ISAEL Mcclain CNP - 10/25/2022 12:30 PM EDT CRISTIAN RAE MD , FACS, [facility] MINIMALLY INVASIVE & METABOLIC / BARIATRIC SURGERY [facility] BARIATRIC EVALUATION - HISTORY AND PHYSICAL 10/25/2022 PATIENT: Ama Avelar DATE OF : 1975 HISTORY OF PRESENT ILLNESS Chief Complaint: Obesity and associated conditions. Ama Avelar is a 47 y.o. female with obesity and associated conditions who presents to the [facility] [place] for evaluation for metabolic/bariatric surgery. The patient stands Height: 5' 6.75 (169.5 cm) ([facility]) tall with a weight of Weight: 210 lb 9.6 oz (95.5 kg) , and has a BMI of Body mass index is 33.23 kg/m .. The patient has failed multiple attemptsat non-surgical weight loss, and is now seeking [...] 5' 6.75 (1.695 m) Comment: bcc Wt 210lb 9.6 oz (95.5 kg) BMI 33.23 kg/m [...] GERD. And we discussed the need for post- operative visit compliance, behavior modifications and dietary compliance, protein and vitamin supplementation, as well as routine scheduled and dedicated exercise. We discussed the potential weight loss benefit, resolution of co- morbid conditions, as well as the possibility of [...] 2 diabetes mellitus without complication, unspecified whether nursing home insulin use(HCC) Hypothyroidism, unspecified type Back pain, unspecified back location, unspecified back pain laterality, unspecified chronicity I have recommended proceeding with the evaluation and work-up for the primary procedure as outlinedbelow: PATIENT SUMMARY Ama Rae 47 y.o. female with Body mass index is 33.23 kg/m . 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 Cheek and on Ozempic and Phenteramine/Topiromate Had recent BMI >35 with PCP - please obtain notes to document BMI> 35 and DM2 PCP: BARI DESAI INITIAL TESTING RESULTS Labwork [x] CMP, TSH, [...] CONSULTATIONS CLEARANCE / MANAGEMENT Psychology [x] Dr. Serrano [x] Cardiology [x] [] not ordered Pulmonary [...] related to anesthesia, conversion from laparoscopic to andopen procedure, the need for reoperative or endoscopic therapy, the potential for prolonged mechanical ventilation, and . All questions were fully answered to the patient's satisfaction and theywish to proceed with surgical intervention. A total of over 45 minute visit was spent in face to face encounter, counseling the patient, discussing the surgical/perioperative plan, record review and documentation. The patient was seen and examined independently and relevant data including a full chart rreview was performed by myself. TIAN RAE MD, [facility], [facility] Marketing Administrative Assistant - [facility] [place] / [facility] Stationary Engineer - Advanced GI MIS, Foregut and Bariatric Surgery Fellowship ---[facility]--- Patient Care Team: Bari Desai as PCP - General (Family Medicine) * Reina Finley RN - 10/25/2022 12:30 PM EDT see TE created for records request * Cristian Rae MD - 10/25/2022 12:30 PM EDT CRISTIAN ARE MD , FACS, [facility] MINIMALLY INVASIVE & METABOLIC / BARIATRIC SURGERY [facility] BARIATRIC EVALUATION - HISTORY AND PHYSICAL 10/25/2022 PATIENT: Ama Avelar DATE OF : 1975 HISTORY OF PRESENT ILLNESS Chief Complaint: Obesity and associated conditions. Ama Avelar is a 47 y.o. female with obesity and associated conditions who presents to the [facility] [place] for evaluation for metabolic/bariatric surgery. The patient stands Height: 5' 6.75 (169.5 cm) ([facility]) tall with a weight of Weight: 210 lb 9.6 oz (95.5 kg) , and has a BMI of Body mass index is 33.23 kg/m .. The patient has failed multiple attemptsat non-surgical weight loss, and is now seeking [...] 5' 6.75 (1.695 m) Comment: bcc Wt 210lb 9.6 oz (95.5 kg) BMI 33.23 kg/m [...] GERD. And we discussed the need for post- operative visit compliance, behavior modifications and dietary compliance, protein and vitamin supplementation, as well as routine scheduled and dedicated exercise. We discussed the potential weight loss benefit, resolution of co- morbid conditions, as well as the possibility of [...] 2 diabetes mellitus without complication, unspecified whether nursing home insulin use(HCC) Hypothyroidism, unspecified type Back pain, unspecified back location, unspecified back pain laterality, unspecified chronicity I have recommended proceeding with the evaluation and work-up for the primary procedure as outlinedbelow: PATIENT SUMMARY Ama Rae 47 y.o. female with Body mass index is 33.23 kg/m . 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 Cheek and on Ozempic and Phenteramine/Topiromate Had recent BMI >35 with PCP - please obtain notes to document BMI> 35 and DM2 PCP: BARI DESAI INITIAL TESTING RESULTS Labwork [x] CMP, TSH, [...] CONSULTATIONS CLEARANCE / MANAGEMENT Psychology [x] Dr. Serrano [x] Cardiology [x] [] not ordered Pulmonary [...] related to anesthesia, conversion from laparoscopic to andopen procedure, the need for reoperative or endoscopic therapy, the potential for prolonged mechanical ventilation, and . All questions were fully answered to the patient's satisfaction and theywish to proceed with surgical intervention. A total of over 45 minute visit was spent in face to face encounter, counseling the patient, discussing the surgical/perioperative plan, record review and documentation. The patient was seen and examined independently and relevant data including a full chart rreview was performed by myself. TIAN RAE MD, FACS, [facility] Marketing Administrative Assistant - Weight Management [place] [facility] Stationary Engineer - Advanced GI MIS, Foregut and Bariatric Surgery Fellowship ---[facility]--- Patient Care Team: Bari Desai as PCP - General (Family Medicine) documented in this [facility]04-24-2023 Discharge summary Author Lawson Cantrell [facility] August 07, 2022 7:08am Note Date/Time August 07, 2022 7:0 8am [facility] Physical Therapy [facility] [address] [place] [address] / REHABILITATION SERVICES DISCHARGE SUMMARY MR#: [id number] Acct: [id number] Name: AMA AVELAR Rep #: [id number] 01 : 1975 47 From: Lawson Cantrell DPT, OCS, CSCS Referring Dr.: Dr. Bari Desai, DO Status: REG RCR Insurance: [facility] SELF PAY INSURANCE AMASA MUSA AVELAR was seen in my office for initial evaluation on 07/28/22. The following Plan of Care was established for this patient: Initial Frequency: 3x /Week Initial Duration: 4-6 Weeks Patient/Client Instruction: Educate patient on: Condition, Plan of Care For the Purpose of:: To decrease pain, To increase ROM, To improve nutrient delivery to tissue, To improve muscle performance and motor function, To improveability of physical actions for home/community/work/leisure Therapeutic Exercise to Include: Strength training, Postural training, Flexibilty training, Passive ROM, Active ROM, Dynamic Lumbar Stabilization For the Purpose of:: To decrease pain, To improve nutrient delivery to tissue, To improve muscle performance and motor function, To increase tolerance to activity/condition/position Manual Therapy Techniques to Include: Mobilization, Passive ROM, Soft tissue mobilization For the Purpose of:: To decrease pain, To increase ROM, To improve nutrient delivery to tissue This patient was last seen in our office 08/01/22. Pertinent comments regardingtheir Physical therapy will appear below: Pt see for initial evaluation and one other visit of POC and then she called to cancel all visits stating it was not helping. will discharge her at this time at her request. At this point I will be discontinuing this patient from physical therapy. I would be happy to see this patient again in the future if found appropriate by the physician. Thank you! Lawson Cantrell, BILL, OCS, CSCS Balance/Gait/Functional tests - Balance/Special Test Scores Oswestry Low Back Score: 28 <Electronically signed by Lawson Cantrell DPT, OCS, CSCS> 08/07/22 0708 CC: Dr. Bari Desai, DO ~ EBG Signed [facility] Work Phone: [phone] 263-627302-16-2023 Hospital Discharge instructions Patient Education 05/31/2022 22:06:01 [...] In it, write down what you were doing,feeling, or eating in the hours before each headache. Show this to your healthcare provider to helpfind the cause of your headaches. If stress seems to be a trigger for your headaches, figure out what is causing stress in your life.Learn new ways to handle your stress. Ideas [...] you can have medicine to take at homethe next time you get a bad headache. [...] of your face Difficulty talking or seeing [phone] [employer]. [address] [place] [address], [place] [address]. All rights reserved. This information is not intended as a substitute for professional medical care. Always follow yourhealthcare professional's instructions. Follow Up Care 05/31/2022 21:01:38 With:BARI HIGUERA MD Address: [address] [place] [phone] When:2-[address] [facility] 02-15-2023 Note Discharge Instructions Thank you for allowing [facility] to assist you with your healthcare needs. The following is importantdischarge information regarding your hospital visit. Diagnosis from Today's Visit Headache What to Do Next Instructions from Your Care Team No qualifying data available. Post Acute Orders No qualifying data available. You Need to Schedule the Following Appointments Follow Up with BARI HIGUERA MD When Within 2-4 days Where: [address] [place] [phone] Allergies Zofran Medications Please ask your primary doctor or pharmacist before taking any other medication not listed, including over the counter drugs, herbal medications, vitamins and or supplements as they may interact withyour home medications. What How Much When Instructions [...] In it, write down what you were doing,feeling, or eating in the hours before each headache. Show this to your healthcare provider to helpfind the cause of your headaches. If stress seems to be a trigger for your headaches, figure out what is causing stress in your life.Learn new ways to handle your stress. Ideas [...] you can have medicine to take at homethe next time you get a bad headache. [...] of your face Difficulty talking or seeing [phone] [employer]. [address] [place] [address], [place] [address]. All rights reserved. This information is not intended as a substitute for professional medical care. Always follow yourhealthcare professional's instructions. Additional Information VACCINATE! IT SAVES LIVES! Members of the community who have not yet received the COVID-19 vaccine and would like to receive it can visit one of [facility] vaccine clinics. There are many vaccine clinic locations within the [facility]. For locations and available times, please visit www.gettheshot.coronavirus.[place].gov/. It is important to note that some COVID mobile vaccine clinics are held outdoors and may be canceled in rainy or stormy conditions. To learn more about pediatric vaccinations (ages 5-11), we invite you to visit the [facility] webpage. https://www.[facility].org/pages/2979-Gfrnj-Srocasgdhoy-Atffayjilj-Stotn-Srk stions.htmlTo learn more about the COVID-19 vaccine, we invite you to visit the CDC website for a list of frequently asked questions. https://www.cdc.gov/coronavirus/2019-ncov/vaccines/faq.html [facility] Patient Portal Access Instructions: Stay connected with your healthcare team and access your personal medical information anytime with the [facility] Patient Portal. If you would like a full copy of your medical records please contact the [facility] Medical Records Department Sunday through Sunday between 8a.m. and 4:30p.m. Please follow the directions below to access the portal: 1.Access the email account you provided upon registration to the hospital.2.Look for an invitation email from [facility].3.Open the email and access the invitation link: Accept Invitation to [facility]4.Fill in the required roe to create your account. Sign into [email or web address] with your username and password that you [...] you will allow to register on the [facility] Patient Portal for access to your information. You can also access the [facility] Patient Portal on the [employer] irais. Simply click on Health Records under [employer] and then click on the [facility] logo. HOW TO SAFELY DISPOSE OF PRESCRIPTION MEDICATIONS Please use one of the following methods to safely dispose of your unused medications. 1.Use a drug disposal kit: the drug disposal pouch allows you to safely discard your old and unuseddrugs. Ask your nurse to give you one when you are discharged.2.Visit a local take-back location: Many local pharmacies and police departments have programs that collect old and unwanted prescriptiondrugs. Call your local pharmacy or go to http://bit.HELIX BIOMEDIX/8H4Rk9y to find one close to you.3.Make use of household items: Use cat litter or old coffee grounds to dispose medications if other options arenot available. Mix your drugs with these household products, seal them in an airtight container andthrow it into the garbage. Call [facility]: [phone] to be sure your drugs can be [...] drowsiness, such as benzodiazepines, also known as benzos,including diazepam and alprazolam, muscle relaxants or sleep aids. Never sell or share prescriptionopioids. This is illegal. Store opioids in a secure place and out of reach of others (including children, family, friends and visitors). The last page(s) of this document has been signed and retained as a CHART COPY Signatures Patient Education Materials Headache, Migraine, Classic Medication Leaflets My discharge plan and instructions have been reviewed and explained to me and I,GREEN AMA understand my current condition and have read and understand these discharge instructions. I have received a written copy of the plan/instructions. If I have questions, I am aware that I should contact my doctor. Patient/Informatics Coordinator Signature: Date/Time: Relationship to Patient: Witness Name/Signature: Date/Time: [facility]01-10-2023 Miscellaneous Notes* Telephone Encounter - Jess Guerrero RN - 04/25/2022 11:07 AM EST Patient calling with physician referral: Patient referred [...] have any questions, you can call Nurse lead front end developer back. [facility] Discharge instructions Patient Education 03/31/2021 06:50:56 [...] the time advised by your healthcare provider. Ifyou aren t sure how long to wear [...] talk with your healthcare provider before using thesemedicines. Also talk with your provider if you [...] broken bones, breaks, or fractures. Sometimes fractures dont show up on the first X-ray. Bruises [...] shoulder or upper arm Fever or chills [phone] [employer]. [address] [place] [address]. All rights reserved. This information is not intended as a substitute for professional medical care. Always follow yourhealthcare professional's instructions. Follow Up Care 03/31/2021 06:05:14 With:NINI ZAMARRIPA Address: [address] [place] [address]- Business (1) When:2-4 days With:BARI HIGUERA Address: [address] [place] [address] [phone] Business (1) When:2-[address] [facility] 10-20-2021 NoteHNO ID: [id number] Author: Laz Walker MD Service: ? Author [...] and we can reeva (more content not included)...[facility] No data available for this section [facility] Evaluation noteNo assessment information available [facility] Work Phone: Evaluation note* Diagnosis Onset Date Resolution Status Bloating chronic Early satiety chronic Hiatal hernia chronic [facility] Work Phone: Evaluation note* Diagnosis Onset Date Resolution Status Bloating chronic Early satiety chronic Hiatal hernia chronic Gastritis chronic [facility] Work Phone: Evaluation note* Diagnosis Onset Date Resolution Status Gastritis chronic [facility] Work Phone: Evaluation note* Diagnosis Class 2 obesity with body mass index (BMI) of 35.0 to 35.9 in adult, unspecified obesity type, unspecified whether serious comorbidity present Primary hypertension Unspecified essential hypertension Controlled type 2 diabetes mellitus without complication, unspecified whether parts counterman insulin use (HCC) Hypothyroidism, unspecified type Back pain, unspecified back location, unspecified back pain laterality, unspecified chronicity documented [facility] [employer]* Diagnosis Class 2 obesity with body mass index (BMI) of 35.0 to 35.9 in adult, unspecified obesity type, unspecified whether serious comorbidity present Primary hypertension Unspecified essential hypertension Controlled type 2 diabetes mellitus without complication, unspecified whether nursing home insulin use (HCC) Hypothyroidism, unspecified type Back pain, unspecified back location, unspecified back pain laterality, unspecified chronicity [facility]* Diagnosis Onset Date Resolution Status Abrasion, left knee, initial encounter acute Contusion of left knee acute [facility] Work Phone: Evaluation note* Diagnosis Breast pain, left- Primary Mastodynia Incisional pain Disturbance of skin sensation [facility]* Diagnosis Onset Date Resolution Status Acute sinusitis acute Diabetes chronic Hypertension chronic 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 Obesity chronic Paresthesia chronic [facility] Work Phone: Evaluation note* Diagnosis Controlled type 2 diabetes mellitus without complication, unspecified whether parts counterman insulin use (HCC)- Primary [facility]* Diagnosis Type 2 diabetes mellitus without complication, without long-term current use of insulin ([facility]/HCC) (HCC)- Primary BMI 34.0-34.9,adult Class 1 obesity with serious comorbidity and body mass index (BMI) of 34.0 to 34.9 in adult, unspecified obesity type documented [facility] encounter [facility]* Diagnosis Class 2 obesity with body mass index (BMI) of 35.0 to 35.9 in adult, unspecified obesity type, unspecified whether serious comorbidity present Primary hypertension Unspecified essential hypertension Controlled type 2 diabetes mellitus without complication, unspecified whether parts counterman insulin use (HCC) Hypothyroidism, unspecified type Back pain, unspecified back location, unspecified back pain laterality, unspecified chronicity documented in this encounter [facility] note* Diagnosis Onset Date Resolution Status Diabetes chronic Hypertension chronic 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 Obesity chronic Paresthesia chronic Diabetes chronic Fatty liver chronic Hypertension chronic 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 Obesity chronic [facility] Work Phone: Evaluation note* Diagnosis Class 2 obesity with body mass index (BMI) of 35.0 to 35.9 in adult, unspecified obesity type, unspecified whether serious comorbidity present Primary hypertension Unspecified essential hypertension Controlled type 2 diabetes mellitus without complication, unspecified whether parts counterman insulin use (HCC) Hypothyroidism, unspecified type Back pain, unspecified back location, unspecified back pain laterality, unspecified chronicity documented [facility] this encounter [facility]* Diagnosis Encounter for gynecological examination (general) (routine) without abnormal findings- Primary Screening for cervical cancer Screening for malignant neoplasm of the cervix Encounter for screening for human papillomavirus (HPV) Special screening examination for human papillomavirus (HPV) Encounter for screening mammogram for breast cancer documented in this encounter [facility]* Diagnosis Encounter for gynecological examination (general) (routine) without abnormal findings Encounter for screening mammogram for breast cancer documented in [facility] encounter [facility]* Diagnosis Type 2 diabetes (HCC)- Primary Hypertriglyceridemia Pure hyperglyceridemia Low HDL (under 40) Lipoprotein deficiencies Fatty liver disease, nonalcoholic Other chronic nonalcoholic liver disease Gastroesophageal reflux disease without esophagitis Esophageal reflux PCOS (polycystic ovarian syndrome) Polycystic ovaries Hypertension, unspecified type Class 1 obesity with serious comorbidity and body mass index (BMI) of 33.0 to 33.9 in adult, unspecified obesity type documented in this encounter [facility]* Diagnosis Class 1 obesity with serious comorbidity and body mass index (BMI) of 33.0 to 33.9 in adult, unspecified obesity type- Primary Type 2 diabetes (HCC) Fatty liver disease, nonalcoholic Other chronic nonalcoholic liver disease Gastroesophageal reflux disease without esophagitis Esophageal reflux PCOS (polycystic ovarian syndrome) Polycystic ovaries Hypertension, unspecified type documented in this encounter [facility]* Diagnosis Obesity, Class I, BMI 30-34.9- Primary Obesity, unspecified Type 2 diabetes mellitus without complication, without long-term current use of insulin (HCC) documented in this encounter [facility]* Diagnosis Class 1 obesity due to excess calories with body mass index (BMI) of 33.0 to 33.9 in adult, unspecified whether serious comorbidity present- Primary Dietary counseling and surveillance Dietary surveillance and counseling [facility] Additional Instructions Follow-up with your surgeon for the abdominal pain issues.[facility] Work Phone: Hospital Discharge instructions Additional Instructions Your CT scan shows diffuse inflammation of your intestines which correlates with your generalized abdominal discomfort. However there is no signs of blockage or perforation and this is most likely due to a virus and is inflammatory in nature and therefore antibiotics are not required. Take the medication as directed to help control your symptoms and if they persist or worsen return for repeat [facility]WLake [facility] Work Phone: Hospital Discharge instructions Additional Instructions Your workup did not show any clinically significant findings indicating symptoms are most likely related to adverse effects from Mounjaro. Continue home medications as directed by your doctor and add the Phenergan for nausea control and the Bentyl for abdominal pain or spasm. If you have any further concerns or worsening of symptoms please return for repeat evaluation [facility] Work Phone: Reilld for referral (narrative)* Diagnostic Procedure Only (Routine) - Authorized Specialty Diagnoses / Procedures Referred By Rickey nathan Referred To Contact [facility] Diagnoses Encounter for gynecological examination (general) (routine) without abnormal findings Encounter for screening mammogram for breast cancer Procedures JASPER SCREENING W FIDEL SCREENING DIGITAL BREAST TOMOSYNTHESIS BI SCREENING MAMMOGRAPHY BI 2-VIEW BREAST INC [place] MD [address] [place] [address] [place] [address] Referral ID Status Reason Start Date Expiration Date Visits Requested Visits Authorized [id number] Authorized Auto-Generat ed Referral 2025 1 1 [facility] (narrative)No reason for referral information availableWLake County [facility] Work Phone: Relwhm for visit Narrative* Diagnostic Procedure Only (Routine) - Closed Specialty Diagnoses / Procedures Referred By Rickey nathan Referred To Contact [facility] Diagnoses Encounter for gynecological examination (general) (routine) without abnormal findings Encounter for screening mammogram for breast cancer Procedures JASPER SCREENING W FIDEL SCREENING DIGITAL BREAST TOMOSYNTHESIS BI SCREENING MAMMOGRAPHY BI 2-VIEW BREAST INC Perry [place] MD [address] [place] [address] [facility] [address] [place] [address] Referral ID Status Reason Start Date Expiration Date V isits Requested Visits Authorized [id number] Closed Auto-Generate d Referral 04/14/2024 2025 1 1 [facility] Summary Purpose Family History No Family History Records Found Relationship Condition Age at Onset Recorded Date/T yamilet grandfather Malignant neoplasm Unknown Alcohol abuse Unknown father Anxiety Unknown Arthritis Unknown Myocardial infarction Unknown Hypertension Unknown mother Cardiac disease Unknown son Asthma Unknown Diabetes mellitus Unknown uncle Disorder of thyroid Unknown Advance Directives No Advanced Directives Records Found Advance Directive Response Recorded Date/ Time Advance Directives No December 9:14am Living Will No November 06, 2021 7:58pm Power of Heavy Duty Mechanic No November 06 7:58pm Advance Directive Response Recorded Date/ Time Advance Directives No December 9:14am Living Will No December 24, 2021 7:22pm Power of Heavy Duty Mechanic No December 7:22pm Advance Directive Response Recorded Date/ Time Advance Directives No December 8:14am Living Will No December 24, 2021 6:22pm Power of Heavy Duty Mechanic No December 6:22pm Advance Directive Response Recorded Date/ Time Advance Directives No December 9:14am Living Will No August 01, 2022 9:52am Power of Heavy Duty Mechanic No August 01 9:52am Advance Directive Response Recorded Date/ Time Advance Directives No December 9:14am Living Will No October 17, 2022 5 :50am Power of Heavy Duty Mechanic No October 17, 2022 5:50am Advance Directive Response Recorded Date/ Time Advance Directives No December 8:14am Living Will No October 17, 2022 4 :50am Power of Heavy Duty Mechanic No October 17, 2022 4:50am Advance Directive Response Recorded Date/ Time Advance Directives No December 9:14am Living Will No August 23, 2023 6: 30am Power of Heavy Duty Mechanic No August 23, 2023 6:30am Advance Directive Response Recorded Date/ Time Advance Directives No July 07, 2 025 9:07am Chief Complaint and Reason for Visit Chief Complaint abd angel Chief Complaint abd angel MAMMOPLASTY REDUCTION 09/14, PAINFUL LUMP LT BREAST Chief Complaint abd angel MAMMOPLASTY REDUCTION 09/14, PAINFUL LUMP LT BREAST DIZZINESS ALLERGIC REACTION Chief Complaint abd angel MAMMOPLASTY REDUCTION 09/14, PAINFUL LUMP LT BREAST DIZZINESS ALLERGIC REACTION SOLITARY PULMONARY NODULE Chief Complaint MAMMOPLASTY REDUCTIO N 09/14, PAINFUL LUMP LT BREAST DIZZINESS ALLERGIC REACTION SOLITARY PULMONARY NODULE POSTOPERATIVE SENOMA OF SKIN Chief Complaint POSTOPERATIVE SENOMA OF SKIN Chief Complaint Consult DEGENERATIVE DISC RX HERE Reason for Visit Bloating Early satiety Hiatal hernia Chief Complaint Consult DEGENERATIVE DISC RX HERE LT BREAST LUMP Reason for Visit Bloating Early satiety Hiatal hernia Chief Complaint Consult DEGENERATIVE DISC RX HERE LT BREAST LUMP 2 WK FU Reason for Visit Bloating Early satiety Hiatal hernia Gastritis Chief Complaint DEGENERATIVE DISC RX HERE LT BREAST LUMP 2 WK FU EARLY SATIETY, EPIGASTRIC DISCOMFORT, BLOATING abd pain n/v/d Reason for Visit Gastritis Chief Complaint EARLY SATIETY, EPIGA STRIC DISCOMFORT, BLOATING abd pain n/v/d KNEE PAIN/POST FALL/LEFT KNEE E ORDER Reason for Visit Abrasion, left knee, initial encounter Contusion of left knee Chief Complaint abd pain n/v/d KNEE PAIN/POST FALL/LEFT KNEE E ORDER NODULE Reason for Visit Abrasion, left knee, initial encounter Contusion of left knee Chief Complaint NODULE SINUS PRESSURE High A1C, 2 YR FU EORDER Reason for Visit Acute sinusitis Diabetes Hypertension Hypothyroidism due to Katelynn's thyroiditis Obesity Paresthesia Chief Complaint NODULE SINUS PRESSURE High A1C, 2 YR FU EORDER Abnormal levels of other serum enzymes Reason for Visit Acute sinusitis Diabetes Hypertension Hypothyroidism due to Katelynn's thyroiditis Obesity Paresthesia Chief Complaint High A1C, 2 YR FU EORDER Abnormal levels of other serum enzymes 3 M FU LUMBAR MASS Reason for Visit Diabetes Hypertension Hypothyroidism due to Katelynn's thyroiditis Obesity Paresthesia Diabetes Fatty liver Hypertension Hypothyroidism due to Katelynn's thyroiditis Obesity Chief Complaint High A1C, 2 YR FU EORDER Abnormal levels of other serum enzymes 3 M FU LUMBAR MASS abd pain Reason for Visit Diabetes Hypertension Hypothyroidism due to Katelynn's thyroiditis Obesity Paresthesia Diabetes Fatty liver Hypertension Hypothyroidism due to Katelynn's thyroiditis Obesity Chief Complaint Admit Date DOT PHYSICAL/SELF PAY July 07, 2024 9 :23am LAB October 22, 2024 8:51a m Reason for Visit Admit Date 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) July 07, 2024 9:23am Chief Complaint Admit Date LAB October 22, 2024 8:51a m sinus congestion January 21, 2025 1: 49pm Additional Source Comments INFORMATION SOURCE (unrecogn ized section and content) DATE CREATED AUTHOR 02/03/2021 [facility] DATE CREATED AUTHOR AUTHOR'S ORGANIZ ATION 09/26/2021 [facility] DATE CREATED AUTHOR AUTHOR'S ORGANIZ ATION 07/27/2022 [facility] DATE CREATED AUTHOR AUTHOR'S ORGANIZ ATION 08/02/2023 [facility] DATE CREATED AUTHOR AUTHOR'S ORGANIZ ATION 08/16/2023 [facility] ([place]) DATE CREATED AUTHOR AUTHOR'S ORGANIZ ATION 01/21/2024 [facility] DATE CREATED AUTHOR AUTHOR'S ORGANIZ ATION 08/27/2024 [facility] DATE CREATED AUTHOR AUTHOR'S ORGANIZ ATION [facility]20[facility] DATE CREATED AUTHOR AUTHOR'S ORGANIZ ATION 01/24/2025 [facility] DATE CREATED AUTHOR AUTHOR'S ORGANIZ ATION 02/17/2025 [facility] Goals (unrecognized section and content) Goals may be documented in a n alternate section Source Comments (unrecognize d section and content) In the event this informatio n is protected by the Federal Confidentiality of Alcohol and Drug Abuse Patient Records regulations: The Federal rules restrict any use of the information to criminally investigate or prosecute any alcohol or drug abuse patient.[facility] the event this information is protected by the Federal Confidentiality of Alcohol and Drug Abuse Patient Records regulations: The Federal rules restrict any use of the information to criminally investigate or prosecute any alcohol or drug abuse patient.[facility] the event this information is protected by the Federal Confidentiality of Alcohol and Drug Abuse Patient Records regulations: The Federal rules restrict any use of the information to criminally investigate or prosecute any alcohol or drug abuse patient.[facility] the event this information is protected by the Federal Confidentiality of Alcohol and Drug Abuse Patient Records regulations: The Federal rules restrict any use of the information to criminally investigate or prosecute any alcohol or drug abuse patient.[facility] the event this information is protected by the Federal Confidentiality of Alcohol and Drug Abuse Patient Records regulations: The Federal rules restrict any use of the information to criminally investigate or prosecute any alcohol or drug abuse patient.[facility] the event this information is protected by the Federal Confidentiality of Alcohol and Drug Abuse Patient Records regulations: The Federal rules restrict any use of the information to criminally investigate or prosecute any alcohol or drug abuse patient.[facility] the event this information is protected by the Federal Confidentiality of Alcohol and Drug Abuse Patient Records regulations: The Federal rules restrict any use of the information to criminally investigate or prosecute any alcohol or drug abuse patient.[facility] the event this information is protected by the Federal Confidentiality of Alcohol and Drug Abuse Patient Records regulations: The Federal rules restrict any use of the information to criminally investigate or prosecute any alcohol or drug abuse patient.[facility] the event this information is protected by the Federal Confidentiality of Alcohol and Drug Abuse Patient Records regulations: The Federal rules restrict any use of the information to criminally investigate or prosecute any alcohol or drug abuse patient.[facility] the event this information is protected by the Federal Confidentiality of Alcohol and Drug Abuse Patient Records regulations: The Federal rules restrict any use of the information to criminally investigate or prosecute any alcohol or drug abuse patient.[facility] the event this information is protected by the Federal Confidentiality of Alcohol and Drug Abuse Patient Records regulations: The Federal rules restrict any use of the information to criminally investigate or prosecute any alcohol or drug abuse patient.[facility] the event this information is protected by the Federal Confidentiality of Alcohol and Drug Abuse Patient Records regulations: The Federal rules restrict any use of the information to criminally investigate or prosecute any alcohol or drug abuse patient.[facility] the event this information is protected by the Federal Confidentiality of Alcohol and Drug Abuse Patient Records regulations: The Federal rules restrict any use of the information to criminally investigate or prosecute any alcohol or drug abuse patient.[facility] Reason for Visit (unrecogniz ed section and content) Reason Comments Referral Request Reason Comments Weight Management NEW Specialty Diagnoses / Procedures Referred By Contac t Referred To Contact Bariatrics Diagnoses Class 2 obesity with body mass index (BMI) of 35.0 to 35.9 in adult, unspecified obesity type, unspecified whether serious comorbidity present Procedures [place] OFFICE/OUTPATIENT NEW HIGH MDM 60-74 MINUTES Pipo Izquierdo MD [address] [place] [address] [facility] Med [address] [place] [address] Referral ID Status Reason Start Date Expiration Date Visits Requested Visits Authorized [id number] Pending Review Specialty Services Required 08/28/2022 08/28/2023 1 1 Reason Onset Date Comments Financial File 10/25/2022 Financial File 2 023 Surgery Scheduling 10/25/2022 Initial sched uling-orders placed Reason Onset Date Comments refer to different DrJusto 12/20/2022 Reason Comments EGD EGD order Reason Comments Consult Lower abdominal pain / seen in [facility] 10/17/22 Reason Comments Request Outside Medical Records Reason Comments Nutrition Counseling BNA Initial Reason Comments Weight Loss D/E new 1 of 6 Reason Onset Date Comments Cancelled Appointment 01/08/2023 Reason Comments Weight Loss D/E 2 of 6 Reason Comments Well Woman Reason Onset Date Comments Weight Management 05/26/2024 Reason Comments Consult Obesity Specialty Diagnoses / Procedures Referred By Contnava t Referred To Contact Diagnoses Fatty liver disease, nonalcoholic Gastroesophageal reflux disease without esophagitis PCOS (polycystic ovarian syndrome) Hypertension, unspecified type Type 2 diabetes (HCC) Class 1 obesity with serious comorbidity and body mass index (BMI) of 33.0 to 33.9 in adult, unspecified obesity type Procedures CONSULT [facility] OFFICE/OUTPATIENT [facility] 60 MINUTES Huyen Huggins MD [address] [place] [address] Phone: tel: fax: [address] [address] Phone: tel: Referral ID Status Reason Start Date Expiration Date V isits Requested Visits Authorized [id number] Closed PCP Requested Referral 05/26/2024 05/26/2025 1 1 Reason Comments Obesity Reason Comments Patient Education Nutrition Assessment Reason Comments Patient Education Reassessment Care Teams (unrecognized sec tion and content) Team Status: Active Member Role Status Dates Dr. Carolina Kemp MD Family Provider Active Dr. Bari Desai , Primary Care Provider Active Team Status: Inactive Member Role Status Dates Dr. Bari Desai DO Primary Care Provider Active HAM FONSECA Attending Provider, Referring Provide r Active Team Status: Inactive Member Role Status Dates Dr. Bari Desai , DO Primary Care Prov ider, Attending Provider, Referring Provider Active Team Status: Inactive Member Role Status Dates Dr. Bari Desai , DO Primary Care Provider, Referrin g Provider Active Ethel Bob RN MDS, RN MDS-C Attending Provider Active Team Status: Active Member Role Status Dates Dr. Bari Desai , DO Primary Care Provider, Referrin g Provider Active Dr. Cedric Roy , DO Attending Provider, Other Prov ider Active Team Status: Inactive Member Role Status Dates Dr. Bari Desai , DO Primary Care Provider, Referrin g Provider Active Dr. Cedric Roy , DO Attending Provider Active Team Status: Active Member Role Status Dates Dr. Bari Desai , DO Primary Care Provider Active Ethel Bob RN MDS, RN MDS-C Attending Provider Active Team Status: Inactive Member Role Status Dates Dr. Bari Desai , DO Primary Care Provider Active Katia Perkins , RN MDS-C Attending Provider, Referring Provi evelyn Active Team Status: Inactive Member Role Status Dates Dr. Bari Desai , DO Primary Care Provider Active Ethel Bob RN MDS, RN MDS-C Attending Provider, Referrin g Provider Active Team Status: Inactive Member Role Status Dates Dr. Bari Desai , DO Primary Care Provider Active Dr. Rik Landa , DO Emergency Provider Active Purchasing/Receiving Relationship Specialty Start Date End Date GiselleBari [address] [place] [phone] PCP - General Family Medicine 10/09/22 Purchasing/Receiving Relationship Specialty Start Date End Date GiselleBari [address] [place] [phone] PCP - General Family Medicine 10/09/22 Cristian Rae MD [address] [place] [address] [address] [place] [address] Surgeon General Surgery 10/30/22 Purchasing/Receiving Relationship Specialty Start Date End Date Bari Desai [address] [place] [phone] PCP - General Family Medicine 10/09/22 Cristian Rae MD [address] [place] [address] [address] [place], [place] [id number] Surgeon General Surgery 10/30/22 Team Status: Inactive Member Role Status Dates Dr. Bari Deasi , DO Primary Care Provider, Referrin g Provider Active Rubio VALDES, [place] Attending Provider Active Team Status: Active Member Role Status Dates Dr. Bari Desai , DO Primary Care Provider Active Dr. Lisa Zamarripa , DO Attending Provider, Referrin g Provider Active Team Status: Inactive Member Role Status Dates Dr. Bari Desai , DO Primary Care Provider Active Dr. Rik Landa , DO Attending Provider, Emergency Pr ovider Active Team Status: Inactive Member Role Status Dates Dr. Bari Desai , DO Primary Care Provider Active Rubio VALDES, PA Attending Provider Active Purchasing/Receiving Relationship Specialty Start Date End Date Bari Desai [address] [place] [address] PCP - General Family Medicine 10/09/22 Cirstian Rae MD [address] [place] [address] [address] [place], [place] [id number] Surgeon General Surgery 10/30/22 Purchasing/Receiving Relationship Specialty Start Date End Date Bari Desai [address] [place] [phone] PCP - General Family Medicine 10/09/22 Cristian Rae MD [address] [place] [address] [address] [place], [place] [id number] Surgeon General Surgery 10/30/22 Purchasing/Receiving Relationship Specialty Start Date End Date Bari Desai [address] [place] [phone] PCP - General Family Medicine 10/09/22 Cristian Rae MD [address] [place], [place] [id number] Surgeon General Surgery 10/30/22 Team Status: Inactive Member Role Status Dates Dr. Bari Desai , DO Primary Care Provider Active Dr. Lisa Zamarripa , DO Attending Provider, Referrin g Provider Active Team Status: Inactive Member Role Status Dates Dr. Bari Desai , DO Primary Care Provider, Referrin g Provider Active DOLLY Pressley Attending Provider Active Team Status: Inactive Member Role Status Dates Dr. Bari Desai , DO Primary Care Provider, Referrin g Provider Active Mode VALDES, PA Attending Provider Active Team Status: Inactive Member Role Status Dates Dr. Bari Desai , DO Primary Care Provider Active TENA PressleyC Attending Provider, Referring Pr ovider Active Purchasing/Receiving Relationship Specialty Start Date End Date Bari Desai [address] [place] [phone] PCP - General Family Medicine 10/09/[address] [place], [place] [id number] Surgeon General Surgery 10/30/22 Purchasing/Receiving Relationship Specialty Start Date End Date Bari Desai [address] [place] [address] PCP - General Family Medicine 10/09/22 Cristian Rae MD [address] [facility] [address] [facility] [address] [place], [place] [phone] Surgeon General Surgery 10/30/22 Purchasing/Receiving Relationship Specialty Start Date End Date Bari Desai [address] [place] [phone] PCP - General Family Medicine 10/09/22 Cristian Rae MD [address] [place] [address] [address] [place], [place] [id number] Surgeon General Surgery 10/30/22 Purchasing/Receiving Relationship Specialty Start Date End Date Bari Desai [address] [place] [address] PCP - General Family Medicine 10/09/22 Cristian Rae MD [address] [place] [address] [address] [place], [place] [phone] Surgeon General Surgery 10/30/22 Purchasing/Receiving Relationship Specialty Start Date End Date Bari Desai [address] [place] [address] PCP - General Family Medicine 10/09/22 Cristian Rae MD [address] [place] [address] [address] [place], [place] [id number] Surgeon General Surgery 10/30/22 Team Status: Active Member Role Status Dates Dr. Bari Desai DO Primary Care Prov ider, Attending Provider, Referring Provider Active Purchasing/Receiving Relationship Specialty Start Date End Date Bari Desai DO [address] [place] [phone] PCP - General Family Medicine 05/26/24 Purchasing/Receiving Relationship Specialty Start Date End Date Bari Desai DO [address] [place] [phone] PCP - General Family Medicine 05/26/24 Purchasing/Receiving Relationship Specialty Start Date End Date Bari Desai DO [address] [place] [address] PCP - General Family Medicine 05/26/24 Purchasing/Receiving Relationship Specialty Start Date End Date Bari Desai DO [address] [place] [phone] PCP - General Family Medicine 05/26/24 Purchasing/Receiving Relationship Specialty Start Date End Date Bari Desai [address] [place] [phone] PCP - General Family Medicine 05/26/24 Purchasing/Receiving Relationship Specialty Start Date End Date Bari Desai [address] [place] [phone] PCP - General Family Medicine 05/26/24 Purchasing/Receiving Relationship Specialty Start Date End Date Bari Desai [address] [place] [phone] PCP - General Family Medicine 05/26/24 Team Status: Active Member Role/Relationship Status Dates Dr. Bari Desai DO Primary Care Provider Active Team Status: Inactive Member Role/Relationship Status Dates Dr. Bari Desai DO Primary Care Provider Active Start: July 07, 2024 End: July 07, 2024 Dr. Bari Desai DO Referring Provider Active Start: July 07, 2024 End: July 07, 2024 Rubio VALDES PA Attending Provider Active Start: July 07, 2024 End: July 07, 2024 Team Status: Inactive Member Role/Relationship Status Dates Dr. Bari Desai DO Primary Care Provider Active Start: October 22, 2024 End: October 22, 2024 Dr. Bari Desai DO Attending Provider Active Start: October 22, 2024 End: October 22, 2024 Dr. Bari Desai DO Referring Provider Active Start: October 22, 2024 End: October 22, 2024 Purchasing/Receiving Relationship Specialty Start Date End Date Bari Desai [address] [place] [phone] PCP - General Family Medicine 10/09/22 Cristian Rae MD [address] [place] [address] [address] [place], [place] [id number] Surgeon General Surgery 10/30/22 Team Status: Active Member Role/Relationship Status Dates Dr. Bari Desai DO Primary care physician Active Team Status: Inactive Member Role/Relationship Status Dates Dr. Bari Desai DO Primary care physician Active Start: October 22, 2024 End: October 22, 2024 Dr. Bari Desai DO Attending physician Active Start: October 22, 2024 End: October 22, 2024 Dr. Bari Desai DO Referring Provider Active Start: October 22, 2024 End: October 22, 2024 Team Status: Inactive Member Role/Relationship Status Dates Dr. Bari Desai DO Primary care physician Active Start: January 21, 2025 End: January 21, 2025 Dr. Bari Desai DO Referring Provider Active Start: January 21, 2025 End: January 21, 2025 Rubio VALDES PA Attending physician Active Start: January 21, 2025 End: January 21, 2025 Care Team (unrecognized sect ion and content) Care Team Personnel Name: BARI HIGUERA MD Member Role: Primary Care Physician Address: Address: [address] [place] [phone] Name: SUMANTH LEON MD Position: ED Physician Member Role: ED Physician Address: Address: [address] [place] [address] Name: Suman Carmona RN Position: AO RN Member Role: RN FOR RECORDS PERTAINING TO PATIENTS WHO ARE [...] BE BASED ON THE PRIMARY CLINICAL RECORDS. [employer] provides no warranty or guarantee of the accuracy or completeness of information in this document.
== END | disposition home or self-care (01) ==
LOC: MTLAB 07:09
PROVIDERS: PCP Family Medicine; Referring Provider Family Medicine; Visit Provider Family Medicine
DX: L68.0 Hirsutism (principal); R23.2 Flushing
CPT/HCPCS: 36415; 82670; 84403